=== PATIENT | male | born 1940 | race Caucasian/White ===

== ENCOUNTER → 2017-01-24 | Outpatient (CLI) | payer OTHER ==
[2016-01-20 12:59] VITALS: BP 146/83; PULSE 60
[~2017-01-24] MED LIST: ACET1TAB84 PO; APR25 PO; APR50 PO; ASPEC81 PO; ASPI81TA28 PO; BISA1TAB15 PO; CARV12.52 PO; CARV25TA PO; CARV25TA2 PO; CLC100 PO; CLOP1TAB15 PO; COEN100C2 PO; CRG125 PO; DOCU-94 PO; DXY100 PO; FINA5TAB PO; FRS/40 PO; FURO-85 PO; FURO40TA3 PO; HYDR-4717 PO; HYDR-5688 PO; HYOS0.1256 SL; ISR10 PO; LEVE500T PO; LEVE500T13 PO; LEVO-366 PO; LOSA100T65 PO; LOSA1TAB38 PO; LPR25 PO; LSX20 PO; LSX40 PO; LVS125 PO; MAGN1CAP4 PO; MAGN1TAB19 PO; MRLP17X PO; MULT-1030 PO; NTRGSL/4 SL; NYSCR30 EXT; Nitroglycerin PR; OXYC1TAB3 PO; PLV75 PO; POTA10CA28 PO; POTA10TA PO; POTA10TA30 PO; PRED50TA PO; PRS5 PO; ROSU10TA24 PO; SERT25TA PO; SERT50TA PO; VANC5CAP PO; WARF2.5T8 PO; WARF5TAB7 PO; ZLF/50 PO
[2017-01-24 14:00] VITALS: BP 144/75; PULSE 64; TEMP 36.5; O2SAT 97
--- NOTE | 2017-01-24 16:58 | Radiation Oncology Follow-Up ---
Radiation Oncology Follow-Up Date of Visit Jan 24, 2017. Reason For Visit Annual follow-up Radiation Completion Date 06/24/15 Diagnosis (1) Malignant neoplasm of rectum Status: Resolved Onset Date: 04/02/2015 Histology Subtype: adenocarcinoma Stage: lll (B) Permanent Comment: Rectal bleeding Status post colonoscopy and biopsy 04/02/2015 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 Status post endoscopic ultrasound stage [id number] Neoadjuvant radiation and chemotherapy Chemotherapy comprised of Xeloda Status post completion of radiation therapy 06/24/2015 received 5460 cGy Status post rectosigmoid resection 08/27/2015 ypT2 ypN0 M0 Status post ileostomy closure 04/14/2016, gait by small bowel obstruction and then hemorrhage Status post CVA and then slow wound healing Last Edited By: Celeste Burrell on Jan 24, 2017 16:38 History of Present Illness 76-year-old gentleman is referred to our department for a course of preoperative neoadjuvant radiation. The patient is scheduled to be seen by medical oncology later in the week for possible chemoradiation preoperatively. The patient had a history of rectal bleeding going off and on from the winter. He attributed this to hemorrhoids but finally after development of pain with his bleeding sought appropriate medical attention. He was found on digital examination to have a irregular cobblestone mass about 2-3 cm (1") from the anal verge. The patient was referred to Dr. Chuck Calderon [facility] who performed colonoscopy on the patient with biopsy and endorectal ultrasound. The patient underwent his biopsy on 04/02/2015. The pathology from that reported a rectal mass with moderately differentiated adenocarcinoma. His ultrasound was shown to demonstrate tumor that invaded into the muscularis certainly there was also a suspicious node seen on ultrasound making him T3N1. The patient underwent a CT of his chest, abdomen and pelvis as part of his staging workup and it was negative for metastatic disease. He has been referred to colorectal surgery at [facility]. The patient would prefer his surgery be at [facility] if possible. This will be worked out. The patient understands his disease and is agreeable for treatment here preoperatively. He was seen by Dr. Davis. And he will follow with him following the neoadjuvant treatment. He completed his neoadjuvant radiation and chemotherapy on 06/24/2015. He received 5460 cGy. He did undergo the low anterior resection with end-to-end anastomosis and temporary colostomy 08/27/2015. Pathology was reviewed and this shows foci of residual invasive moderately differentiated adenocarcinoma. The tumor invades to the depth of 0.4 cm and invades into, but not through, the muscularis propria. This is equivalent to stage T2. There were 22 lymph nodes evaluated and all were negative for metastatic disease. There was no macroscopic tumor perforation present. No perineural or lymphovascular space invasion identified. Changes consistent with radiation therapy. Examined margins free of neoplasm. Specimen [id number]. Interim History He was admitted and underwent closure of ileostomy by Dr. Davis on 2015. Unfortunately this was complicated by small bowel obstruction and then hemorrhage. Due to the hemorrhage he had to be off of anticoagulation. He then suffered a stroke. He now has right sided weakness. He has been slowly recuperating. He has difficulty with ambulation as well as speech. There is irregularity of bowel movements. For the most part he has constipation. He has been using gummy fiber to twice a day to help regulate his bowels. He also uses Dulcolax every 2 days. They also uses Mirilax. He does eat a regular diet. He unfortunately continues to have a weight loss. He has been scheduled for a recheck colonoscopy by Dr. Calderon on 02/14/2017. Allergies Coded Allergies: Iodine (Verified Allergy, Severe, airway edema, 11/18/16) Tramadol (Verified Allergy, Severe, seizures, 11/18/16) Oxycodone (Verified Allergy, Unknown, "itchiness all over", 11/18/16) Felodipine (Verified Adverse Reaction, Mild, cough, 11/18/16) ANCELMO Inhibitors (Verified Adverse Reaction, Unknown, COUGHING, 11/18/16) Codeine (Verified Adverse Reaction, Unknown, hallucinations, depression, ) Home Medications Scheduled Aspirin Enteric Coated (Ecotrin Or Generic *), 81 MG PO DAILY Carvedilol (Coreg), 25 MG PO BID Clopidogrel (Plavix), 75 MG PO DAILY Docusate Sodium (Colace), 2 CAP PO BID Finasteride (Proscar), 5 MG PO DAILY Hydralazine Hcl (Apresoline), 12.5 TAB PO QID Levetiractam (Levetiracetam), 500 MG PO BID Losartan Potassium (Cozaar), 100 MG PO QAM Magnesium Oxide (Magnesium), 200 MG PO DAILY Potassium Chloride (Micro-K Ext Rel), 10 MEQ PO Q2D(EVEN) Sertraline (Zoloft), 1 TAB PO DAILY Scheduled PRN Furosemide (Lasix), 20 MG PO DAILY PRN for edema Hydrocodone/Acetaminophen 5MG/325MG ([place] 5MG/325MG), 1-2 TAB PO Q4 PRN for mild to moderate pain Hyoscyamine Sulfate (Levsin/Sl), 1-2 TAB SL Q4H PRN for SPASM Nitroglycerin (Nitrostat), 1 TABLET SL [id number] PRN for Chest Pain Polyethylene (Miralax), 17 GM PO DAILY PRN for Constipation Review of Systems Gastrointestinal: Symptoms: Constipation GI Comments: Reports issues w/constipation and rectal pressure creating urge ; Oral: Symptoms: No Problems Other Oral Symptoms: Trouble swallowing since having stroke;Eating regular foods, sm. bites; Respiratory: Symptoms: Dry Cough Other Respiratory: Weak hoarse voice;SOB due to decreased strength Urinary: Symptoms: WNL Comments: nocturia times 2 Skin: Other Skin Symptoms: Pt has "couple small lumps" on buttocks he's like MD to look at. Physical Exam Vital Signs Date Time Temp Pulse Resp B/P Pulse Ox O2 Delivery O2 Flow Rate FiO2 01/24/17 14:00 36.5 64 32 144/75 97 Pain: Pain Onset: since surgery Pain Duration: comes and goes Side: Right Patient Pain Scale: 0 - 10 Initial Pain Intensity: 1.0 Additional Comments: gets worse when the ostomy bag is applied Fatigue: Moderate General Appearance: + thin Eyes: normal inspection, EOMI ENT: normal ENT inspection, hearing grossly normal Respiratory/Chest: lungs clear, no respiratory distress, no accessory muscle use Cardiovascular: regular rate, rhythm, no gallop, no murmur Abdomen: non tender, soft Anal / Rectum: Normal sphincter tone. Anastomotic line is noted with raised area on the anterior service. There is no rectal bleeding. Extremities: normal inspection Neurologic/Psychiatric: no motor/sensory deficits, alert, normal mood/affect Skin: warm/dry Laboratory Studies Test 11/18/16 17:19 11/18/16 17:35 11/18/16 18:05 White Blood Count 6.15 K/uL (4.8-10.8) Red Blood Count 4.33 M/uL (4.7-6.1) Hemoglobin 13.4 g/dL (14.0-18.0) Hematocrit 39.8 % (42-52) Mean Corpuscular Volume 91.9 fL (80-100) Mean Corpuscular Hemoglobin 30.9 pg (25-34) Mean Corpuscular Hemoglobin Concent 33.7 g/dl (32-36) Platelet Count 162 K/uL (130-400) Mean Platelet Volume 10.0 fL (7.4-10.4) Neutrophils (%) (Auto) 62.3 % Lymphocytes (%) (Auto) 28.0 % Monocytes (%) (Auto) 7.2 % Eosinophils (%) (Auto) 1.5 % Basophils (%) (Auto) 0.2 % Neutrophils # (Auto) 3.84 K/uL (1.4-6.5) Lymphocytes # (Auto) 1.72 K/uL (1.2-3.4) Monocytes # (Auto) 0.44 K/uL (0.11-0.59) Eosinophils # (Auto) 0.09 K/uL (0-0.5) Basophils # (Auto) 0.01 K/uL (0-0.2) RDW Standard Deviation 48.2 fL (36.4-46.3) RDW Coefficient of Variation 14.4 % (11.5-14.5) Immature Granulocyte % (Auto) 0.8 % Immature Granulocyte # (Auto) 0.05 K/uL (0.00-0.02) Prothrombin Time 31.7 SECONDS (9.0-12.0) Prothrombin Time INR 2.8 (0.9-1.1) PTT 33.8 SECONDS (21.0-31.0) Partial Thromboplastin Ratio 1.3 Sodium Level 144 mmol/L (136-145) Potassium Level 4.0 mmol/L (3.5-5.1) Chloride Level 110 mmol/L (98-107) Carbon Dioxide Level 25 mmol/L (21-32) Anion Gap 9.0 mmol/L (3-11) Blood Urea Nitrogen 18 mg/dl (7-18) Creatinine 1.10 mg/dl (0.60-1.40) Est Creatinine Clear Calc Drug Dose 50.7 ml/min Estimated GFR () 74.7 Estimated GFR (Non- 64.4 BUN/Creatinine Ratio 16.6 (10-20) Random Glucose 109 mg/dl (70-99) Calcium Level 8.8 mg/dl (8.5-10.1) Magnesium Level 2.1 mg/dl (1.8-2.4) Total Bilirubin 0.5 mg/dl (0.2-1) Direct Bilirubin < 0.1 mg/dl (0-0.2) Aspartate Amino Transferase (AST) 22 U/L (15-37) Alanine Aminotransferase (ALT) 24 U/L (12-78) Alkaline Phosphatase 124 U/L (45-117) Total Creatine Kinase 36 U/L (39-308) Creatine Kinase MB 0.8 ng/ml (0.5-3.6) Creatine Kinase MB Ratio 2.2 (0-3.0) Total Protein 7.0 gm/dl (6.4-8.2) Albumin 3.4 gm/dl (3.4-5.0) POC Troponin I 0.020 ng/ml (0-0.045) Urine Color YELLOW Urine Appearance CLEAR (CLEAR) Urine pH 5.0 (4.5-7.5) Urine Specific [place] 1.014 (1.000-1.030) Urine Protein 1+ (NEG) Urine Glucose (UA) NEG (NEG) Urine Ketones NEG (NEG) Urine Occult Blood TRACE (NEG) Urine Nitrite NEG (NEG) Urine Bilirubin NEG (NEG) Urine Urobilinogen NEG (NEG) Urine Leukocyte Esterase NEG (NEG) Urine WBC (Auto) 1-5 /hpf (0-5) Urine RBC (Auto) 5-10 /hpf (0-4) Urine Hyaline Casts (Auto) 1-5 /lpf (0-5) Urine Epithelial Cells (Auto) 10-20 /lpf (0-5) Urine Bacteria (Auto) NEG (NEG) Additional Studies Laboratory studies were reviewed and he had a CEA titer that was normal on 10/13. Assessment & Plan Plan: Continue follow-up with Dr. Young, his primary care physician, and Dr. Calderon. He is scheduled for a colonoscopy on 02/14/2017. He is a recheck appointment with Dr. Young on 03/03/2017. Recheck laboratory studies in scanning per Dr. Young. We asked her to return to our office in 6 months. Total Time In Follow-Up I spent 20 minutes the need to the patient performing examination. I spent 20 minutes reviewing information in completing this note. Copy To Chuck Calderon MD; Xavi Moreno M.D.(CARLOS); Mark Young M.D.
== END | disposition home or self-care (01) ==
LOC: C.ONC 13:34
PROVIDERS: ATTEND Physician Assistant Medical
DX: Z08 Encounter for follow-up examination after completed treatment for malignant neoplasm (principal); Z92.3 Personal history of irradiation; Z85.048 Personal history of other malignant neoplasm of rectum, rectosigmoid junction, and anus

== ENCOUNTER → 2017-04-27 | Outpatient (CLI) | payer OTHER ==
[~2017-04-27] MED LIST changes: +MethylPREDNISolone HOME PACK 16 MG TAB PO SCH; -SERT25TA PO; -WARF2.5T8 PO; -WARF5TAB7 PO
--- NOTE | 2017-04-27 13:40 | DIAGNOSTIC IMAGING REPORT ---
NECK CTA HISTORY: Confusion. TECHNIQUE: Multiaxial CT images of the neck were performed following the intravenous administration of contrast to evaluate the major cervical vessels. Maximum intensity projection images were also obtained. All measurements were calculated based on NASCET criteria. COMPARISON STUDY: Neck CTA 05/08/2016. FINDINGS: The aortic arch and proximal great vessels are widely patent. The bilateral common carotid arteries are widely patent. Severe calcified plaque within the right carotid bulb, unchanged. Moderate calcified and noncalcified plaque within the left carotid bulb, unchanged. There is approximate 70% stenosis at the proximal 1.5 cm of the right internal carotid artery. This is not significantly changed. No significant stenosis within the left internal carotid artery. Bilateral vertebral arteries are widely patent. Small right and moderate left pleural effusion. Stable prominent paratracheal lymph nodes. Left-sided pacemaker. IMPRESSION: 1. 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 This is not significantly changed. 2. No significant stenosis within the bilateral common carotid, left internal carotid, or vertebral arteries. 3. Small right and moderate left pleural effusions. Electronically signed by: Javon Suarez M.D. 04/27/2017 1:38 PM Dictated Date/Time: 04/27/2017 1:31 PM
--- NOTE | 2017-04-27 13:41 | DIAGNOSTIC IMAGING REPORT ---
CT ANGIOGRAPHY HEAD COMBO CT DOSE: CLINICAL HISTORY: Stroke. Confusion. Possible aneurysm. TECHNIQUE: Unenhanced images were obtained through the brain. The patient was then scanned in a dynamic helical fashion during intravenous administration of 94 cc of Optiray 320. MIP imaging was performed. COMPARISON STUDY: 05/08/2016 FINDINGS: The noncontrast study, no intra or extra-axial mass lesions are visualized. There is no CT evidence of acute cortical infarction. There is no evidence of midline shift. There is no evidence of acute hemorrhage. There are old left basal ganglia infarcts. There is suspected well-aerated degeneration within the joel. There is compensatory dilatation of the left lateral ventricle. Postcontrast images reveal no pathologically enhancing masses. There are no major intracranial branch occlusions. There are dural venous sinuses appear patent. There is a 7 mm aneurysm at the level of the right MCA trifurcation. This remains unchanged. 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 IMPRESSION: 1. 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 Old left basal ganglia infarcts Electronically signed by: Jacky Bower M.D. 04/27/2017 1:40 PM Dictated Date/Time: 04/27/2017 1:32 PM
== END | disposition home or self-care (01) ==
LOC: C.CTS 12:40
PROVIDERS: ATTEND Psychiatry & Neurology Neurology
DX: I69.359 Hemiplegia and hemiparesis following cerebral infarction affecting unspecified side (principal); I67.1 Cerebral aneurysm, nonruptured; I65.21 Occlusion and stenosis of right carotid artery; J90 Pleural effusion, not elsewhere classified

== ENCOUNTER 2017-05-02 20:58 | Inpatient (IN) | payer OTHER ==
[~2017-05-02] VITALS: Ht 167.6 cm; Wt 73.2 kg
[~2017-05-02 20:58] MED LIST changes: -ACET1TAB84 PO; -APR25 PO; -APR50 PO; -ASPI81TA28 PO; -BISA1TAB15 PO; -CARV25TA PO; -CARV25TA2 PO; -CLC100 PO; -COEN100C2 PO; -CRG125 PO; -DXY100 PO; -FRS/40 PO; -FURO40TA3 PO; -ISR10 PO; -LEVE500T13 PO; -LEVO-366 PO; -LOSA100T65 PO; -LPR25 PO; -LSX20 PO; -LSX40 PO; -LVS125 PO; -MAGN1TAB19 PO; -MULT-1030 PO; -MethylPREDNISolone HOME PACK 16 MG TAB PO SCH; -NYSCR30 EXT; -Nitroglycerin PR; -OXYC1TAB3 PO; -PLV75 PO; -POTA10TA PO; -POTA10TA30 PO; -PRED50TA PO; -PRS5 PO; -ROSU10TA24 PO; -VANC5CAP PO; -ZLF/50 PO
[2017-05-02] MEDS ORDERED: APR25 PO (21:41)
[2017-05-02] MEDS ORDERED: LSX20 PO (21:54)
[2017-05-02] MEDS ORDERED: LOSA100T65 PO (21:54)
[2017-05-02] MEDS ORDERED: VANC5CAP PO (21:54)
[2017-05-02] MEDS ORDERED: LVS125 PO (21:54)
[2017-05-02] MEDS ORDERED: LEVE500T13 PO (21:54)
[2017-05-02] MEDS ORDERED: CRG125 PO (21:54)
[2017-05-02] MEDS ORDERED: ZLF/50 PO (21:54)
[2017-05-02] MEDS ORDERED: POTA10TA30 PO (21:54)
[2017-05-02] MEDS ORDERED: PRS5 PO (21:54)
[2017-05-02] MEDS ORDERED: PLV75 PO (21:54)
[2017-05-02] MEDS ORDERED: MAGN1TAB19 PO (21:57)
[2017-05-02] MEDS ORDERED: ASPI81TA28 PO (21:57)
[2017-05-02 21:58] LABS: BASO % 0.1 %; BASO ABS # 0.01 K/uL (0-0.2); COMPLETE YES; EOS % 2.1 %; HEMATOCRIT 41.3 % (42-52); IG% 1.1 %; LYMPH % 11.5 %; LYMPH ABS # 0.87 K/uL (1.2-3.4); MEAN CELL VOLUME 95.2 fL (80-100); MEAN CORPUSCULAR HEMOGLOBIN 30.6 pg (25-34); MEAN CORPUSCULAR HGB CONC 32.2 g/dl (32-36); MEAN PLATELET VOLUME 10.3 fL (7.4-10.4); MONO % 6.1 %; NEUT % 79.1 %; PLATELET COUNT 143 K/uL (130-400); RED BLOOD COUNT 4.34 M/uL (4.7-6.1); WHITE BLOOD COUNT 7.59 K/uL (4.8-10.8)
[2017-05-02] MEDS ORDERED: Nitroglycerin PR (22:05)
[2017-05-02] MEDS ORDERED: BISA1TAB15 PO (22:05)
[2017-05-02] MEDS ORDERED: MULT-1030 PO (22:05)
[2017-05-02] MEDS ORDERED: COEN100C2 PO (22:05)
[2017-05-02 22:06] LABS: INR 1.1 (0.9-1.1); PROTHROMBIN TIME (PATIENT) 12.2 SECONDS (9.0-12.0)
[2017-05-02 22:13] LABS: BUN/CREATININE RATIO 21.2 (10-20); CALCIUM 8.6 mg/dl (8.5-10.1); CREATININE 1.3 mg/dl (0.60-1.40); MAGNESIUM 2.3 mg/dl (1.8-2.4); POTASSIUM 4.1 mmol/L (3.5-5.1)
[2017-05-02 22:24] LABS: ALB/GLOB RATIO 1.1 (0.9-2); THYROID STIMULATING HORMONE 2.14 uIu/ml (0.300-4.500)
--- NOTE | 2017-05-02 22:24 | DIAGNOSTIC IMAGING REPORT ---
CHEST ONE VIEW PORTABLE CLINICAL HISTORY: chest discomfort chest pain COMPARISON STUDY: 11/18/2016 FINDINGS: . Bipolar cardiac pacer in good position. Infiltrate left base. Superimposed mild congestive failure. IMPRESSION: Infiltrate left base. Superimposed mild congestive failure Electronically signed by: Dirk Castellanos M.D. 05/02/2017 10:23 PM Dictated Date/Time: 05/02/2017 10:22 PM
[2017-05-02] MEDS ORDERED: LEVAQUIN 750MG / 150ML D5W IV STA (23:13)
--- NOTE | 2017-05-02 23:31 | EMERGENCY ROOM VISIT NOTE ---
History Report prepared by Michelle: Yaquelin Burris Under the Supervision of: Dr. Zunilda Shepherd D.O. First contact with patient: 21:19 Chief Complaint: HYPERTENSION Stated Complaint: ELEVATED BP History of Present Illness The patient is a 76 year old male who presents to the Emergency Room with complaints of worsening heart palpitations starting several days ago. He has episodes where his heart feels like it is alternating between beating fast and slow. He has had this since his stroke 1 year ago. These episodes have been becoming longer and more frequent which is concerning him. He checked his blood pressure today and found that it was 160/100. His blood pressure is usually well controlled. He is also feeling SOB which worsens with exertion. He reports some left arm and elbow pain which he has never had before. The arm pain worsens with exertion. He has some swelling in his legs. He has been complaining of feeling hot according to his . He denies any dizziness, lightheadedness, chest pain, LOC, abdominal pain, nausea, vomiting, urinary symptoms, diarrhea, or diaphoresis. He has a history of stroke and multiple SD. He has a pacemaker and a stent in place. He is on hydralazine. He takes a fluid pill occasionally when his legs swell. Recently he had C diff and was on vancomycin. He does not have diarrhea anymore. Source of History: patient, spouse/significant other Onset: several days ago Position: other (cardiac) Quality: other (palpitations) Timing: worsening Modifying Factors (Worsening): exertion Associated Symptoms: + SOB, No LOC, No diaphoresis, No chest pain, No nausea , No vomiting, No abdominal pain, No diarrhea, No urinary symptoms Note: Pt reports high blood pressure, left arm pain, leg swelling, feeling hot. Pt denies dizziness, lightheadedness. Review of Systems See HPI for pertinent positives & negatives. A total of 10 systems reviewed and were otherwise negative. Past Medical & Surgical Medical Problems: (1) AV block (2) Benign prostatic hyperplasia (3) Carotid disease, bilateral (4) Chest pain (5) CHF exacerbation (6) Clostridium difficile infection (7) Coronary artery disease (8) Diabetes mellitus, type II (9) DVT (deep venous thrombosis) (10) Dyslipidemia (11) Elevated blood pressure reading (12) GERD (gastroesophageal reflux disease) (13) History of colorectal cancer (14) History of CVA (cerebrovascular accident) (15) History of skin cancer (16) Hypertension (17) Left bundle branch block (18) Malignant neoplasm of rectum (19) Peripheral vascular disease (20) Right humeral fracture (21) Seizure (22) Seizure disorder (23) Sick sinus syndrome Surgical Problems: (1) H/O ileostomy (2) History of resection of rectum (3) S/P colon resection (4) Status post cardiac pacemaker procedure (5) Status post cholecystectomy (6) Status post coronary artery bypass grafting (7) Status post shoulder surgery (8) Status post tonsillectomy Family History Cad, cabg BROTHER Cancer aunt,uncle Diabetes mellitus MOTHER Gallbladder disease Hypertension MOTHER BROTHER Kidney disease Multiple myeloma FATHER Social History Smoking Status: Never Smoker Alcohol Use: none Drug Use: none Marital Status: Housing Status: lives with family Occupation Status: retired Current/Historical Medications Scheduled Aspirin (Aspirin Ec), 81 MG PO QPM Carvedilol (Carvedilol), 25 MG PO BID Clopidogrel Bisulfate (Clopidogrel), 75 MG PO QPM Coenzyme Q10 (Ubidecarenone) (Coenzyme Q-10), 100 MG PO DAILY Doxycycline Hyclate (Doxycycline Hyclate), 100 MG PO BID Finasteride (Finasteride), 5 MG PO DAILY Furosemide (Lasix), 20 MG PO DAILY Hydralazine HCl (Hydralazine HCl), 50 MG PO TID Isosorbide Dinitrate (Isosorbide Dinitrate), 10 MG PO TID@0700,1200,1700 Levetiracetam (Keppra), 500 MG PO BID Losartan Potassium (Cozaar), 100 MG PO DAILY Magnesium Oxide (Mg Supplement (Magnesium Oxide), 400 MG PO DAILY Multiple Vitamins W/ Minerals (Centrum Men), 1 TAB PO DAILY Potassium Chloride (Micro-K Ext Rel), 10 MEQ PO DAILY Sertraline HCl (Sertraline HCl), 50 MG PO DAILY Scheduled PRN Bisacodyl (Bisacodyl), 5 MG PO UD PRN for Constipation Hyoscyamine Sulfate (Hyoscyamine Sulfate), 0.125 MG PO Q4H PRN for Cramping Nitroglycerin (Nitrostat), 0.4 MG SL UD PRN for Chest Pain [Nitroglycerin], 1 APPLN [place] Q12 PRN for Rectal Spasm Allergies Coded Allergies: Iodine (Verified Allergy, Severe, airway edema, 11/18/16) Tramadol (Verified Allergy, Severe, seizures, 11/18/16) Oxycodone (Verified Allergy, Unknown, "itchiness all over", 11/18/16) Felodipine (Verified Adverse Reaction, Mild, cough, 11/18/16) ANCELMO Inhibitors (Verified Adverse Reaction, Unknown, COUGHING, 11/18/16) Codeine (Verified Adverse Reaction, Unknown, hallucinations, depression, ) Physical Exam Vital Signs Date Time Temp Pulse Resp B/P (MAP) Pulse Ox O2 Delivery O2 Flow Rate FiO2 05/02/17 23:18 86 18 173/127 93 Room Air 05/02/17 21:40 90 169/111 05/02/17 21:15 90 05/02/17 21:04 36.7 92 18 167/105 96 Room Air Physical Exam GENERAL: alert, tearful appearing, well nourished, no distress, non-toxic EYE EXAM: normal conjunctiva, PERRL and EOM's grossly intact OROPHARYNX: no exudate, no erythema, lips, buccal mucosa, and tongue normal and mucous membranes are moist NECK: supple, no nuchal rigidity, no adenopathy, non-tender CHEST: pacer located on left anterior chest wall LUNGS: Breath sounds equal bilaterally. No wheezes rhonchi rales. Normal chest wall mechanics HEART: regular paced rhythm, no murmurs, S1 normal and S2 normal ABDOMEN: abdomen soft, non-tender, normo-active bowel sounds, no masses, no rebound or guarding. BACK: Back is symmetrical on inspection and there is no deformity, no midline tenderness, no CVA tenderness. SKIN: no rashes and no bruising UPPER EXTREMITIES: upper extremities are grossly normal. LOWER EXTREMITIES: trace to 1+ pitting edema bilaterally. NEURO EXAM: Oriented, alert, follows commands. Normal sensorium, cranial nerves II-XII grossly intact, normal speech, increased weakness and decreased ROM in right lower extremity and right upper extremity secondary to stroke. Medical Decision & Procedures ER Provider Diagnostic Interpretation: Xray results have been interpreted by the radiologist and me. CHEST ONE VIEW PORTABLE CLINICAL HISTORY: chest discomfort chest pain COMPARISON STUDY: 11/18/2016 FINDINGS: . Bipolar cardiac pacer in good position. Infiltrate left base. Superimposed mild congestive failure. IMPRESSION: Infiltrate left base. Superimposed mild congestive failure Electronically signed by: Dirk Castellanos M.D. 05/02/2017 10:23 PM Dictated Date/Time: 05/02/2017 10:22 PM Laboratory Results Test 05/02/17 21:30 05/02/17 22:55 Prothrombin Time 12.2 SECONDS (9.0-12.0) Prothromb Time International Ratio 1.1 (0.9-1.1) Total Bilirubin 0.6 mg/dl (0.2-1) Aspartate Amino Transf (AST/SGOT) 53 U/L (15-37) Alanine Aminotransferase (ALT/SGPT) 97 U/L (12-78) Alkaline Phosphatase 160 U/L (45-117) Pro-B-Type Natriuretic Peptide 61947 pg/ml (0-1800) Total Protein 7.1 gm/dl (6.4-8.2) Albumin 3.7 gm/dl (3.4-5.0) Globulin 3.4 gm/dl (2.5-4.0) Albumin/Globulin Ratio 1.1 (0.9-2) Lipase 115 U/L (73-393) Thyroid Stimulating Hormone (TSH) 2.140 uIu/ml (0.300-4.500) Urine Color YELLOW Urine Appearance CLEAR (CLEAR) Urine pH 5.5 (4.5-7.5) Urine Specific [place] 1.026 (1.000-1.030) Urine Protein 2+ (NEG) Urine Glucose (UA) NEG (NEG) Urine Ketones NEG (NEG) Urine Occult Blood NEG (NEG) Urine Nitrite NEG (NEG) Urine Bilirubin NEG (NEG) Urine Urobilinogen NEG (NEG) Urine Leukocyte Esterase NEG (NEG) Urine WBC (Auto) 1-5 /hpf (0-5) Urine RBC (Auto) 5-10 /hpf (0-4) Urine Hyaline Casts (Auto) 1-5 /lpf (0-5) Urine Epithelial Cells (Auto) 10-20 /lpf (0-5) Urine Bacteria (Auto) NEG (NEG) Laboratory results per my review. Medications Administered Medications (Trade) Dose Ordered Sig/Nati Route Start Time Stop Time Status Last Admin Dose Admin Levofloxacin (Levaquin / D5W) 750 mg NOW STAT IV 05/02/17 23:13 05/02/17 23:14 DC 05/02/17 23:24 750 MG ECG Indication: palpitations Rate (beats per minute): 91 Rhythm: other (paced) Findings: no acute ischemic change, left axis deviation, other (prolonged QRS and QTC consistent with pacing) ED Course 2132: The patient was evaluated by the student at this time. We discussed his findings, differentials, and treatment plan. 2155: The patient was evaluated in room A3. A complete history and physical exam was performed. 2256: Upon reevaluation, the patient is resting comfortably. I discussed the findings and the treatment plan with the patient. He expresses agreement and understanding. He will be evaluated for further management. 2313: Levofloxacin 750 mg IV. 2328: Pt seen in the ER by Stoney S[place]a [place] hospitalist. He will evaluate the patient for further management. Medical Decision Differential diagnosis: Etiologies such as premature contractions, electrolyte abnormality, cardiac dysrhythmia, thyroid dysfunction, pulmonary embolism, infection, gastrointestinal, as well as others were entertained. Medication Reconciliation: I attest that I have personally reviewed the patient' s current medication list. Blood pressure screening: Patient was found to have an elevated blood pressure and was referred to their primary doctor for recheck and further treatment. Initial concern for need for admission for ACS r/o given hx and exertional symptoms. After cxr, pt covered with antibiotics for possible infiltrate as read by radiology and BNP added given appearance. BNP returned markedly elevated by the time of hospitalist evaluation. Lasix ordered in the ER. Pt with no symptoms in the ER, VS stable. Doubt bacteremia/sepsis, doubt vascular etiology. Pt aware of all results and agreeable with plan for admission. Consults Time Called: 2255 Consulting Physician: Stoney Haider hospitalist Impression Primary Impression: Dyspnea on exertion Additional Impressions: Left shoulder pain Pneumonia Anxiety CHF exacerbation Scribe Attestation The scribe's documentation has been prepared under my direction and personally reviewed by me in its entirety. I confirm that the note above accurately reflects all work, treatment, procedures, and medical decision making performed by me. Departure Information Dispostion Being Evaluated By Hospitalist Prescriptions Isosorbide Dinitrate (Isosorbide Dinitrate) 10 Mg Tab 10 MG PO TID@0700,1200,1700 for 30 Days, #90 TAB Prov: Allie Hanson M.D. 05/05/17 Hydralazine HCl (Hydralazine HCl) 50 Mg Tab 50 MG PO TID for 30 Days, #90 TAB Prov: Allie Hasnon M.D. 05/05/17 Doxycycline Hyclate (Doxycycline Hyclate) 100 Mg Cap 100 MG PO BID for 3 Days, #6 CAP Prov: Allie Hanson M.D. 05/05/17 Furosemide (LASIX) 40 Mg Tab 20 MG PO DAILY for 30 Days, #15 TAB Prov: Allie Hanson M.D. 05/05/17 Potassium Chloride (Micro-K Ext Rel) 10 Meq Capcr 10 MEQ PO DAILY for 30 Days, #30 CAP Prov: Allie Hanson M.D. 05/05/17 Carvedilol (Carvedilol) 12.5 Mg Tab 25 MG PO BID for 30 Days, #120 TAB 2 Refills Prov: Allie Hanson M.D. 05/05/17 Referrals Xavi Moreno M.D. ([facility]) (PCP) Patient Instructions My [facility] Problem Qualifiers Additional Impressions: Left shoulder pain Chronicity: acute Qualified Codes: M25.512 - Pain in left shoulder Pneumonia Pneumonia type: due to unspecified organism Laterality: left Lung location : lower lobe of lung Qualified Codes: J18.1 - Lobar pneumonia, unspecified organism CHF exacerbation Congestive heart failure type: combined Qualified Codes: I50.43 - Acute on chronic combined systolic (congestive) and diastolic (congestive) heart failure
[2017-05-02] MEDS ORDERED: FUROSEMIDE INJ 40 MG in SYRINGE 0 ML IV STA (23:44)
[2017-05-02] MEDS ORDERED: ALBUT/IPRATROP 3MG/0.5MG NEB 3 ML VIAL INH PRN (23:45)
[2017-05-02] MEDS ORDERED: IV FLUIDS COMPLETED PRN (23:45)
[2017-05-02] MEDS ORDERED: ALBUT/IPRATROP 3MG/0.5MG NEB 3 ML VIAL INH STA (23:45)
[2017-05-02] MEDS ORDERED: FUROSEMIDE 40 MG/4 ML VIAL ONE (23:49)
[2017-05-02] MEDS ORDERED: ALBUT/IPRATROP 3MG/0.5MG NEB 3 ML VIAL ONE (23:49)
[2017-05-02 23:50] LABS: URINE APPEARANCE CLEAR (CLEAR); URINE BILIRUBIN NEG (NEG); URINE COLOR YELLOW; URINE NITRITE NEG (NEG); URINE PH 5.5 (4.5-7.5); URINE SPECIFIC GRAVITY 1.026 (1.000-1.030); UROBILINOGEN NEG (NEG); ZZUR CULT IF INDIC CLEAN CATCH NO
[2017-05-02 23:52] LABS: MANUAL MICROSCOPIC REQUIRED? NO; REVIEW REQ? NO
[2017-05-03] VITALS (10 sets, daily range): BP systolic 151–167; BP diastolic 85–106; PULSE 60–102; TEMP 36.5–37.1; O2SAT 93–96; Ht 167.6 cm; Wt 73.2 kg
[2017-05-03] MEDS ORDERED: HYDROCODONE/ACETAMOPHEN 5/325MG TAB PO PRN
[2017-05-03] MEDS ORDERED: MoRPHine SULFATE 4 MG/ML 1 ML CARP\\VIAL IV PRN
[2017-05-03] MEDS ORDERED: ACETAMINOPHEN 325 MG TAB PO PRN
[2017-05-03] MEDS ORDERED: ONDANSETRON INJ 2 MG/ML 2 ML VIAL IV PRN
[2017-05-03] MEDS ORDERED: NITROGLYCERIN 0.4 MG SL PER TAB CHARGE SL PRN ×2
[2017-05-03] MEDS: RASPBERRY SYRUP 5 ML UDP PO SCH ×5 (01:12→23:16)
[2017-05-03] MEDS: VANCOMYCIN HCL 125 MG/2.5ML SOLN PO SCH ×5 (01:14→23:15)
--- NOTE | 2017-05-03 01:48 | History and Physical ---
History & Physical Date & Time of Service: May 03, 2017 at 01:44 Chief Complaint: Chf Exacerbation Primary Care Physician: Xavi Moreno M.D.([facility]) History of Present Illness Source: patient, partner, clinic records, hospital records 1 day history of shortness of breath especially on exertion. Yesterday patient noted some leg swelling. Patient given extra Lasix. Dry cough symptoms. No fever no chills. Patient also noted left upper extremity discomfort. No actual chest pain. Blood pressure a little higher than usual, some weight gain as per . At the ER, patient given Levaquin for possible pneumonia. Past Medical/Surgical History Medical Problems: (1) AV block Permanent Comment: s/p pacemaker Status: Chronic (2) Benign prostatic hyperplasia Status: Chronic (3) Carotid disease, bilateral Permanent Comment: asymptomatic Status: Chronic (4) Coronary artery disease Permanent Comment: s/p [place] Status: Chronic (5) Diabetes mellitus, type II Status: Chronic (6) Dyslipidemia Status: Chronic (7) GERD (gastroesophageal reflux disease) Status: Chronic (8) History of skin cancer Status: Chronic (9) Hypertension Status: Chronic (10) Left bundle branch block Status: Chronic (11) Malignant neoplasm of rectum Permanent Comment: Rectal bleeding Status post colonoscopy and biopsy 04/02/2015 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 Status post endoscopic ultrasound stage [id number] Neoadjuvant radiation and chemotherapy Chemotherapy comprised of Xeloda Status post completion of radiation therapy 06/24/2015 received 5460 cGy Status post rectosigmoid resection 08/27/2015 ypT2 ypN0 M0 Status post ileostomy closure 04/14/2016, gait by small bowel obstruction and then hemorrhage Status post CVA and then slow wound healing Status: Resolved (12) Seizure Status: Chronic Surgical Problems: (1) H/O ileostomy Status: Chronic (2) History of resection of rectum Status: Resolved (3) S/P colon resection Status: Chronic (4) Status post cardiac pacemaker procedure Permanent Comment: initial 2005, generator change 2011 Status: Chronic (5) Status post cholecystectomy Status: Chronic (6) Status post coronary artery bypass grafting Permanent Comment: Dr. Stephens [facility] [place] DIAZ-LAD, SVG left circumflex Status: Chronic (7) Status post shoulder surgery Status: Chronic (8) Status post tonsillectomy Status: Chronic Family History Cad, cabg BROTHER Cancer aunt,uncle Diabetes mellitus MOTHER Gallbladder disease Hypertension MOTHER BROTHER Kidney disease Multiple myeloma FATHER Social History Smoking Status: Never Smoker Drug Use: none Marital Status: Housing status: lives with family Occupational Status: retired, other (as per HPI, all other ROS negative) Immunizations History of Influenza Vaccine: Yes Influenza Vaccine Date: Aug 15, 2014 History of Tetanus Vaccine?: Unknown History of Pneumococcal: Yes Pneumococcal Date: May 31, 2005 History of Hepatitis B Vaccine: No Multi-Drug Resistant Organisms History of MDRO: No Allergies Coded Allergies: Iodine (Verified Allergy, Severe, airway edema, 11/18/16) Tramadol (Verified Allergy, Severe, seizures, 11/18/16) Oxycodone (Verified Allergy, Unknown, "itchiness all over", 11/18/16) Felodipine (Verified Adverse Reaction, Mild, cough, 11/18/16) ANCELMO Inhibitors (Verified Adverse Reaction, Unknown, COUGHING, 11/18/16) Codeine (Verified Adverse Reaction, Unknown, hallucinations, depression, ) Home Medications Scheduled Aspirin (Aspirin Ec), 81 MG PO QPM Carvedilol (Carvedilol), 12.5 MG PO BID Clopidogrel Bisulfate (Clopidogrel), 75 MG PO QPM Coenzyme Q10 (Ubidecarenone) (Coenzyme Q-10), 100 MG PO DAILY Finasteride (Finasteride), 5 MG PO DAILY Furosemide (Furosemide), 20 MG PO Q2D Hydralazine Hcl (Apresoline), 12.5 MG PO QID Levetiracetam (Keppra), 500 MG PO BID Losartan Potassium (Cozaar), 100 MG PO DAILY Magnesium Oxide (Mg Supplement (Magnesium Oxide), 400 MG PO DAILY Multiple Vitamins W/ Minerals (Centrum Men), 1 TAB PO DAILY Potassium Chloride (Potassium Chloride Cr), 10 MEQ PO Q2D Sertraline HCl (Sertraline HCl), 50 MG PO DAILY Vancomycin Hcl (Vancomycin), 125 MG PO Q6H Scheduled PRN Bisacodyl (Bisacodyl), 5 MG PO UD PRN for Constipation Hyoscyamine Sulfate (Hyoscyamine Sulfate), 0.125 MG PO Q4H PRN for Cramping Nitroglycerin (Nitrostat), 0.4 MG SL UD PRN for Chest Pain [Nitroglycerin], 1 APPLN [place] Q12 PRN for Rectal Spasm Physical Exam Vital Signs Date Time Temp Pulse Resp B/P (MAP) Pulse Ox O2 Delivery O2 Flow Rate FiO2 05/03/17 00:41 36.5 102 18 164/106 93 Room Air 05/03/17 00:14 36.7 95 18 177/119 95 05/02/17 23:18 86 18 173/127 93 Room Air 05/02/17 21:40 90 169/111 05/02/17 21:15 90 05/02/17 21:04 36.7 92 18 167/105 96 Room Air General Appearance: + mild distress, + pertinent finding (anxious) Head: normocephalic Eyes: + pertinent finding (pale palpebral conjunctivae, old right facial droop) Neck: supple Respiratory/Chest: + decreased breath sounds Cardiovascular: + pertinent finding (diminished S1-S2) Abdomen/GI: soft Extremities/Musculoskelatal: no calf tenderness, + pedal edema Neurologic/Psych: + pertinent finding (old right facial asymmetry, decreased strength RUE/RLE chronic) Diagnostics Laboratory Results Results Past 24 Hours Test 05/02/17 21:30 05/02/17 22:55 Range/Units White Blood Count 7.59 4.8-10.8 K/uL Red Blood Count 4.34 4.7-6.1 M/uL Hemoglobin 13.3 14.0-18.0 g/dL Hematocrit 41.3 42-52 % Mean Corpuscular Volume 95.2 80-100 fL Mean Corpuscular Hemoglobin 30.6 25-34 pg Mean Corpuscular Hemoglobin Concent 32.2 32-36 g/dl Platelet Count 143 130-400 K/uL Mean Platelet Volume 10.3 7.4-10.4 fL Neutrophils (%) (Auto) 79.1 % Lymphocytes (%) (Auto) 11.5 % Monocytes (%) (Auto) 6.1 % Eosinophils (%) (Auto) 2.1 % Basophils (%) (Auto) 0.1 % Neutrophils # (Auto) 6.01 1.4-6.5 K/uL Lymphocytes # (Auto) 0.87 1.2-3.4 K/uL Monocytes # (Auto) 0.46 0.11-0.59 K/uL Eosinophils # (Auto) 0.16 0-0.5 K/uL Basophils # (Auto) 0.01 0-0.2 K/uL RDW Standard Deviation 50.7 36.4-46.3 fL RDW Coefficient of Variation 14.6 11.5-14.5 % Immature Granulocyte % (Auto) 1.1 % Immature Granulocyte # (Auto) 0.08 0.00-0.02 K/uL Prothrombin Time 12.2 9.0-12.0 SECONDS Prothromb Time International Ratio 1.1 0.9-1.1 Sodium Level 142 136-145 mmol/L Potassium Level 4.1 3.5-5.1 mmol/L Chloride Level 109 98-107 mmol/L Carbon Dioxide Level 27 21-32 mmol/L Anion Gap 6.0 3-11 mmol/L Blood Urea Nitrogen 28 7-18 mg/dl Creatinine 1.30 0.60-1.40 mg/dl Est Creatinine Clear Calc Drug Dose 42.9 ml/min Estimated GFR () 61.0 Estimated GFR (Non- 52.6 BUN/Creatinine Ratio 21.2 10-20 Random Glucose 158 70-99 mg/dl Calcium Level 8.6 8.5-10.1 mg/dl Magnesium Level 2.3 1.8-2.4 mg/dl Total Bilirubin 0.6 0.2-1 mg/dl Aspartate Amino Transf (AST/SGOT) 53 15-37 U/L Alanine Aminotransferase (ALT/SGPT) 97 12-78 U/L Alkaline Phosphatase 160 45-117 U/L Troponin I 0.025 0-0.045 ng/ml Pro-B-Type Natriuretic Peptide 76259 0-1800 pg/ml Total Protein 7.1 6.4-8.2 gm/dl Albumin 3.7 3.4-5.0 gm/dl Globulin 3.4 2.5-4.0 gm/dl Albumin/Globulin Ratio 1.1 0.9-2 Lipase 115 73-393 U/L Thyroid Stimulating Hormone (TSH) 2.140 0.300-4.500 uIu/ml Urine Color YELLOW Urine Appearance CLEAR CLEAR Urine pH 5.5 4.5-7.5 Urine Specific [place] 1.026 1.000-1.030 Urine Protein 2+ NEG Urine Glucose (UA) NEG NEG Urine Ketones NEG NEG Urine Occult Blood NEG NEG Urine Nitrite NEG NEG Urine Bilirubin NEG NEG Urine Urobilinogen NEG NEG Urine Leukocyte Esterase NEG NEG Urine WBC (Auto) 1-5 0-5 /hpf Urine RBC (Auto) 5-10 0-4 /hpf Urine Hyaline Casts (Auto) 1-5 0-5 /lpf Urine Epithelial Cells (Auto) 10-20 0-5 /lpf Urine Bacteria (Auto) NEG NEG Diagnostic Radiology Chest x-ray congestion, possible infiltrate left EKG EKG paced rhythm Impression Assessment and Plan (1) CHF exacerbation Assessment & Plan: hx ischemic cardiomyopathy ? precipitated by uncontrolled HTN IV lasix 1 dose now further mx as per Cardio strict IOs, daily weights, CHF education (2) Coronary artery disease Assessment & Plan: sp CABG, stenting (3) Hypertension Assessment & Plan: slightly elevated, anxiety contributory facilitate home BP meds may need titration (4) Diabetes mellitus, type II Assessment & Plan: diet controlled well controlled as of recent outpx HgA1c ISS BG goal 140-180 (5) Sick sinus syndrome Assessment & Plan: sp PPM (6) History of CVA (cerebrovascular accident) (7) Clostridium difficile infection Assessment & Plan: px improving on recent outpx PO Vanco course (8) Peripheral vascular disease (9) History of colorectal cancer Assessment & Plan: sp surgery/chemoradiation (10) DVT (deep venous thrombosis) Assessment & Plan: past hx coumadin (11) Seizure disorder Stable on Keppra Advanced Directives Existing Living Will: No Existing Power of Packing Machine Tender: No VTE Prophylaxis VTE Risk Assessment Done? Y/N: Yes Risk Level: High Given or contraindicated: Enoxaparin (Lovenox)SQ
[2017-05-03 06:14] LABS: BASO % 0.1 %; BASO ABS # 0.01 K/uL (0-0.2); COMPLETE YES; EOS % 2.3 %; HEMATOCRIT 36.9 % (42-52); IG% 1.3 %; LYMPH % 17.4 %; LYMPH ABS # 1.21 K/uL (1.2-3.4); MEAN CELL VOLUME 94.4 fL (80-100); MEAN CORPUSCULAR HEMOGLOBIN 31.2 pg (25-34); MEAN CORPUSCULAR HGB CONC 33.1 g/dl (32-36); MEAN PLATELET VOLUME 10.2 fL (7.4-10.4); MONO % 8.9 %; PLATELET COUNT 126 K/uL (130-400); RED BLOOD COUNT 3.91 M/uL (4.7-6.1); WHITE BLOOD COUNT 6.96 K/uL (4.8-10.8)
[2017-05-03 06:44] LABS: BUN/CREATININE RATIO 22.5 (10-20); CALCIUM 8.7 mg/dl (8.5-10.1); CREATININE 1.3 mg/dl (0.60-1.40); POTASSIUM 3.8 mmol/L (3.5-5.1)
[2017-05-03] MEDS: SERTRALINE HCL 50 MG TAB PO SCH (07:40)
[2017-05-03] MEDS: ENOXAPARIN 40 MG/0.4 ML SYR SC SCH (07:40)
[2017-05-03] MEDS: FINASTERIDE 5 MG TAB PO SCH (07:40)
[2017-05-03] MEDS: LEVETIRACETAM 500 MG TAB PO SCH ×2 (07:41→19:55)
[2017-05-03] MEDS: LOSARTAN POTASSIUM 50 MG TAB PO SCH (07:41)
[2017-05-03] MEDS: CEROVITE ADV FORMULA TAB PO SCH (07:41)
[2017-05-03] MEDS ORDERED: GLUCOSE 40% GEL 15 GM TUBE PO PRN (08:15)
[2017-05-03] MEDS ORDERED: GLUCOSE 10 TABS/TUBE PO PRN (08:15)
[2017-05-03] MEDS ORDERED: DEXTROSE 50% 50 ML SYR IV PRN (08:15)
[2017-05-03] MEDS ORDERED: GLUCAGON FOR INJ 1 MG VIAL SQ PRN (08:15)
[2017-05-03] MEDS ORDERED: CARVEDILOL 12.5 MG TAB PO SCH (09:00)
--- NOTE | 2017-05-03 10:30 | DIAGNOSTIC IMAGING REPORT ---
SINGLE VIEW CHEST CLINICAL HISTORY: CHF. FINDINGS: An AP, portable, upright chest radiograph is compared to study dated 05/02/2017. The examination is degraded by portable technique and patient rotation. A 2-lead cardiac pacemaker is unchanged in position. The patient is status post midline sternotomy. The heart is enlarged and there is atherosclerotic calcification of the thoracic aorta. There is mild central pulmonary vascular congestion. Chronic interstitial thickening with bibasilar scarring versus atelectasis is similar to previous. Small pleural effusions are identified. Consolidative change is noted at the left lung base. No pneumothorax is identified. The skeletal structures are osteopenic. Chronic posttraumatic change is noted in the right humerus. Cholecystectomy clips are seen in the right upper quadrant. IMPRESSION: 1. Cardiomegaly and cardiac pacemaker. There is mild central pulmonary vascular congestion. 2. Pleural effusions are noted and there is consolidative change at the left lung base. Cortical clinically for evidence of superimposed pneumonia. Electronically signed by: Fredy Gould M.D. 05/03/2017 10:28 AM Dictated Date/Time: 05/03/2017 10:25 AM
[2017-05-03] MEDS: INSULIN ASPART 100 UNITS/ML 3 ML PEN SC SCH ×3 (11:36→19:53)
--- NOTE | 2017-05-03 14:38 | Cardiology Consultation ---
Cardiology Consultation Date of Consultation: May 03, 2017 Requesting Physician: Christine Attending Mechanic Field Service: Hans (Dirk Orozco PA-C) History of Present Illness Patient is a markedly complex 76-year-old male who is being seen at the request of Dr. King. Reason for consultation is congestive heart failure. Patient describes experiencing increased shortness of breath, nonproductive cough and palpitations over the past week. He also notes left arm and left elbow discomfort. EKG on presentation demonstrated atrial sensed, ventricular paced rhythm. Chest x-ray was interpreted by the radiologist as demonstrating mild congestive heart failure with a left basilar infiltrate. He was admitted by the [facility] service and given 40 mg of IV Lasix with complete resolution of his presenting symptoms. He has diuresed 1.875 L. Blood pressures are noted be elevated on presentation throughout his hospitalization thus far. Repeat chest x-ray this morning demonstrates mild central pulmonary vascular congestion, pleural effusions, consolidative changes at the left base. No chest pain. No orthopnea or PND. No lightheadedness, dizziness, near syncope, or true syncope. He denies fevers, chills, or night sweats. No hemoptysis, epistaxis, melena, hematochezia, hematuria. (Dirk Orozco PA-C) History Past Medical and Surgical History: Atherosclerotic coronary disease, status post coronary bypass grafting March of 2002, receiving DIAZ graft to LAD, saphenous vein graft to left circumflex. Recurrent ischemia with drug-eluting stent placed in the distal right coronary artery May of 2014 with patent grafts. Carotid occlusive disease. Sick sinus syndrome status post dual-chamber pacemaker insertion. Hypertension. Hyperlipidemia. Colorectal carcinoma status post low anterior resection 08/25/2015 after chemo and radiation therapy. Hospitalization at [facility] on 11/29/2015 with new onset seizure. No overt cardiac decompensation. Reversal of ileostomy on 04/14/2016 complicated by bowel obstruction, perianastomotic hemorrhage requiring 3 units of packed red cells and discontinuation of antiplatelet therapy. 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 Type II diabetes mellitus Male gynecomastia GERD Osteoarthrosis Chronic headaches. BPH. History of DVT Depression Anxiety Chronic rhinitis Bilateral shoulder surgery Cholecystectomy Prostate biopsy Appendectomy T/A as a child Inguinal hernia repair Family History: Father with multiple myeloma. Mother with CAD and diabetes mellitus. And with breast cancer. Uncle with prostate cancer. Brother with coronary artery disease status post CABG. Social History: Nonsmoker. No alcohol. No illegal drug use. to market. Three children. Retired. (Dirk Orozco PA-C) Past Medical/Surgical History Problem List: Medical Problems: (1) AV block (2) Benign prostatic hyperplasia (3) Carotid disease, bilateral (4) Chest pain (5) CHF exacerbation (6) Clostridium difficile infection (7) Coronary artery disease (8) Diabetes mellitus, type II (9) DVT (deep venous thrombosis) (10) Dyslipidemia (11) Elevated blood pressure reading (12) GERD (gastroesophageal reflux disease) (13) History of colorectal cancer (14) History of CVA (cerebrovascular accident) (15) History of skin cancer (16) Hypertension (17) Left bundle branch block (18) Malignant neoplasm of rectum (19) Peripheral vascular disease (20) Right humeral fracture (21) Seizure (22) Sick sinus syndrome Surgical Problems: (1) H/O ileostomy (2) History of resection of rectum (3) S/P colon resection (4) Status post cardiac pacemaker procedure (5) Status post cholecystectomy (6) Status post coronary artery bypass grafting (7) Status post shoulder surgery (8) Status post tonsillectomy (Dirk Orozco PA-C) Review Of Systems General: + Weight gain. + edema. No fever or chills. Head: + Headaches. Cardiovascular: See above. Pulmonary: + Cough. No hemoptysis. Gastrointestinal: No nausea or vomiting. Skin: No rash. Musculoskeletal: See above. Neurological: See above. Complete review of systems is as stated above, negative, or noncontributory. (Dirk Orozco PA-C) Allergies Coded Allergies: Iodine (Verified Allergy, Severe, airway edema, 11/18/16) Tramadol (Verified Allergy, Severe, seizures, 11/18/16) Oxycodone (Verified Allergy, Unknown, "itchiness all over", 11/18/16) Felodipine (Verified Adverse Reaction, Mild, cough, 11/18/16) ANCELMO Inhibitors (Verified Adverse Reaction, Unknown, COUGHING, 11/18/16) Codeine (Verified Adverse Reaction, Unknown, hallucinations, depression, ) Medications Reported Home Medications Medications Dose Route/Sig Max Daily Dose Days Date Category Dose Instructions Bisacodyl 5 Mg Tab 5 Mg PO UD PRN 05/02/17 Reported [Nitroglycerin] 0.2% Oint 1 Appln NM Q12 PRN 05/02/17 Reported Centrum Men (Multiple Vitamins W/ Minerals) 1 Tab Tab 1 Tab PO DAILY 05/02/17 Reported Coenzyme Q-10 (Coenzyme Q10 (Ubidecarenone)) 100 Mg Cap 100 Mg PO DAILY 05/02/17 Reported Magnesium Oxide (Magnesium Oxide (Mg Supplement) 400 Mg Tab 400 Mg PO DAILY 05/02/17 Reported Aspirin Ec (Aspirin) 81 Mg Tab 81 Mg PO QPM 05/02/17 Reported Hyoscyamine Sulfate 0.125 Mg Tab 0.125 Mg PO Q4H PRN 05/02/17 Reported Furosemide 20 Mg Tab 20 Mg PO Q2D 05/02/17 Reported Keppra (Levetiracetam) 500 Mg Tab 500 Mg PO BID 05/02/17 Reported Potassium Chloride Cr (Potassium Chloride) 10 Meq Tab 10 Meq PO Q2D 05/02/17 Reported Cozaar (Losartan Potassium) 100 Mg Tab 100 Mg PO DAILY 05/02/17 Reported Carvedilol 12.5 Mg Tab 12.5 Mg PO BID 05/02/17 Reported Clopidogrel (Clopidogrel Bisulfate) 75 Mg Tab 75 Mg PO QPM 05/02/17 Reported Sertraline HCl 50 Mg Tab 50 Mg PO DAILY 05/02/17 Reported Finasteride 5 Mg Tab 5 Mg PO DAILY 05/02/17 Reported Vancomycin (Vancomycin Hcl) 125 Mg Cap 125 Mg PO Q6H 05/02/17 Reported PRESCRIBED 04/20/2017, TAKE DIRECTED UNTIL GONE Apresoline (Hydralazine Hcl) 25 Mg Tab 12.5 Mg PO QID 05/02/17 Reported Nitrostat (Nitroglycerin) 0.4 Mg Tab 0.4 Mg SL UD PRN 01/23/[address] ONE TABLET UNDER THE TONGUE EVERY 5 MINUTES FOR UP TO 3 DOSES IF NEEDED FOR CHEST PAIN (Dirk Orozco PA-C) Physical Exam Vital Signs (Last 8hrs): Last 8 Hrs Date Time Temp Pulse Resp B/P (MAP) Pulse Ox O2 Delivery O2 Flow Rate FiO2 05/03/17 12:00 95 Room Air 05/03/17 11:53 36.7 61 16 167/99 (121) 94 Room Air 05/03/17 08:00 96 Room Air 05/03/17 07:50 36.7 63 16 157/85 (109) 94 Room Air General Appearance: Alert and Oriented x3. NAD. Head: Normocephalic Atraumatic. Eyes: PER, EOMI, conjunctiva and sclera clear Neck: Supple. Bilateral carotid bruits. Mildly elevated JVP. Respiratory: Left basilar rales. Right basilar rales. No wheeze. Cardiovascular: Regular, 82 bpm. No murmurs. No rubs. PMI non displaced. Abdomen: +BS. Soft. nontender. Extremities: No edema, no clubbing or cyanosis. distal pulses 2/4 bilaterally. Neuro: No focal deficits. Psychiatric: Normal affect. (Dirk Orozco, JOMAR) Data Last 24 Hours Test 05/02/17 21:30 05/02/17 22:55 05/03/17 05:53 05/03/17 11:32 White Blood Count 7.59 K/uL 6.96 K/uL Red Blood Count 4.34 M/uL 3.91 M/uL Hemoglobin 13.3 g/dL 12.2 g/dL Hematocrit 41.3 % 36.9 % Mean Corpuscular Volume 95.2 fL 94.4 fL Mean Corpuscular Hemoglobin 30.6 pg 31.2 pg Mean Corpuscular Hemoglobin Concent 32.2 g/dl 33.1 g/dl Platelet Count 143 K/uL 126 K/uL Mean Platelet Volume 10.3 fL 10.2 fL Neutrophils (%) (Auto) 79.1 % 70.0 % Lymphocytes (%) (Auto) 11.5 % 17.4 % Monocytes (%) (Auto) 6.1 % 8.9 % Eosinophils (%) (Auto) 2.1 % 2.3 % Basophils (%) (Auto) 0.1 % 0.1 % Neutrophils # (Auto) 6.01 K/uL 4.87 K/uL Lymphocytes # (Auto) 0.87 K/uL 1.21 K/uL Monocytes # (Auto) 0.46 K/uL 0.62 K/uL Eosinophils # (Auto) 0.16 K/uL 0.16 K/uL Basophils # (Auto) 0.01 K/uL 0.01 K/uL RDW Standard Deviation 50.7 fL 49.6 fL RDW Coefficient of Variation 14.6 % 14.6 % Immature Granulocyte % (Auto) 1.1 % 1.3 % Immature Granulocyte # (Auto) 0.08 K/uL 0.09 K/uL Prothrombin Time 12.2 SECONDS Prothromb Time International Ratio 1.1 Sodium Level 142 mmol/L 145 mmol/L Potassium Level 4.1 mmol/L 3.8 mmol/L Chloride Level 109 mmol/L 111 mmol/L Carbon Dioxide Level 27 mmol/L 27 mmol/L Anion Gap 6.0 mmol/L 7.0 mmol/L Blood Urea Nitrogen 28 mg/dl 29 mg/dl Creatinine 1.30 mg/dl 1.30 mg/dl Est Creatinine Clear Calc Drug Dose 42.9 ml/min 42.9 ml/min Estimated GFR () 61.0 61.0 Estimated GFR (Non- 52.6 52.6 BUN/Creatinine Ratio 21.2 22.5 Random Glucose 158 mg/dl 112 mg/dl Calcium Level 8.6 mg/dl 8.7 mg/dl Magnesium Level 2.3 mg/dl Total Bilirubin 0.6 mg/dl Aspartate Amino Transf (AST/SGOT) 53 U/L Alanine Aminotransferase (ALT/SGPT) 97 U/L Alkaline Phosphatase 160 U/L Troponin I 0.025 ng/ml 0.041 ng/ml Pro-B-Type Natriuretic Peptide 66062 pg/ml Total Protein 7.1 gm/dl Albumin 3.7 gm/dl Globulin 3.4 gm/dl Albumin/Globulin Ratio 1.1 Lipase 115 U/L Thyroid Stimulating Hormone (TSH) 2.140 uIu/ml Urine Color YELLOW Urine Appearance CLEAR Urine pH 5.5 Urine Specific [place] 1.026 Urine Protein 2+ Urine Glucose (UA) NEG Urine Ketones NEG Urine Occult Blood NEG Urine Nitrite NEG Urine Bilirubin NEG Urine Urobilinogen NEG Urine Leukocyte Esterase NEG Urine WBC (Auto) 1-5 /hpf Urine RBC (Auto) 5-10 /hpf Urine Hyaline Casts (Auto) 1-5 /lpf Urine Epithelial Cells (Auto) 10-20 /lpf Urine Bacteria (Auto) NEG Bedside Glucose 131 mg/dl Imaging: See above. EKG: See above. Telemetry reviewed: Atrial sensed, ventricular paced rhythm. (Pam,Dirk, PA-C) Assessment & Plan Markedly complex 76-year-old male presenting with signs and symptoms of acute decompensated systolic congestive heart failure and possible left lower lobe pneumonia. Uncontrolled hypertension observed, possibly contributing to presenting symptoms. Pacemaker interrogation requested given report of palpitations, possibly atrial arrhythmias contributing to decompensation. Patient has experienced significant in presenting symptoms after administration of 40 mg IV furosemide. Given chest x-ray and examination findings will continue low-dose IV diuretic therapy at least another day, reassessing need for ongoing use in the morning. Carvedilol will be increased to 25 mg twice per day for additional heart rate and blood pressure control. There is room to increase hydralazine dosing if needed for additional blood pressure control. Strict I/O's and daily weights on a standing scale should be obtained. Further recommendations pending the above, evaluation by Dr. Morales, and his ongoing hospitalization. (Dirk Orozco PA-C) Cardiology attending: Pt seen and examined, agree with findings and assessment as per Dirk Mckeon. Presented volume overloaded, diuresed 1.5L already and breathing improved. BP also significantly elevated, will uptitrate hydralazine. (Mark Morales, Hardy.O.)
[2017-05-03] MEDS: CLOPIDOGREL BISULFATE 75 MG TAB PO SCH (19:54)
[2017-05-03] MEDS: CARVEDILOL 12.5 MG TAB PO SCH (19:54)
[2017-05-03] MEDS: ASPIRIN 81 MG ECTAB PO SCH (19:54)
--- NOTE | 2017-05-03 20:12 | Progress Note ---
Progress Note Date of Service May 03, 2017. Progress Note PT ADMITTED EARLIER TODAY PLEASE SEE h& p FOR DETAIL 76 yo M admitted with SOB , WARD , palpitatio n symptom markedly improved with X1 IV Lasix given in ED Cxray shows persisted left lower lobe infiltrate will start on PO Doxycycline pt is to be continued with PO vancomycin to complete course for recent C diff ( stool positive for C diff PCR on 04/19/17 at [facility] ) Cardiology eval requested appreciate input adequate diuresis Hydralazine dose adjusted for elevated BP cont to monitor pt in Tele
[2017-05-03] MEDS: DOXYCYCLINE HYCLATE 100 MG CAP PO SCH (21:09)
[2017-05-04] VITALS (7 sets, daily range): BP systolic 138–165; BP diastolic 76–98; PULSE 60–79; TEMP 36.5–37; O2SAT 93–98
[2017-05-04] MEDS: RASPBERRY SYRUP 5 ML UDP PO SCH ×2 (05:46→11:16)
[2017-05-04] MEDS: VANCOMYCIN HCL 125 MG/2.5ML SOLN PO SCH ×2 (05:46→11:16)
[2017-05-04 06:13] LABS: BUN/CREATININE RATIO 23.2 (10-20); CREATININE 1.2 mg/dl (0.60-1.40); POTASSIUM 3.7 mmol/L (3.5-5.1)
[2017-05-04 06:47] LABS: CALCIUM 8.8 mg/dl (8.5-10.1)
[2017-05-04] MEDS: INSULIN ASPART 100 UNITS/ML 3 ML PEN SC SCH ×4 (07:00→20:53)
[2017-05-04 07:54] LABS: ESTIMATED AVERAGE GLUCOSE 126 mg/dl; HA1C FLAG Normal (Normal)
[2017-05-04] MEDS: ENOXAPARIN 40 MG/0.4 ML SYR SC SCH (08:27)
[2017-05-04] MEDS: FINASTERIDE 5 MG TAB PO SCH (08:27)
[2017-05-04] MEDS: LOSARTAN POTASSIUM 50 MG TAB PO SCH (08:28)
[2017-05-04] MEDS: LEVETIRACETAM 500 MG TAB PO SCH ×2 (08:28→19:39)
[2017-05-04] MEDS: CARVEDILOL 12.5 MG TAB PO SCH ×2 (08:28→19:39)
[2017-05-04] MEDS: CEROVITE ADV FORMULA TAB PO SCH (08:28)
[2017-05-04] MEDS: SERTRALINE HCL 50 MG TAB PO SCH (08:28)
[2017-05-04] MEDS: DOXYCYCLINE HYCLATE 100 MG CAP PO SCH ×2 (08:29→19:40)
--- NOTE | 2017-05-04 08:29 | Clinical Documentation Query ---
QUERY 1 OF [address] CRAIG, In your clinical opinion is this patient being managed for: ( x) Acute on chronic combined systolic and diastolic CHF ( ) Acute on chronic systolic CHF ( ) Acute on chronic diastolic CHF ( ) Other explanation of clinical findings (Please Explain) ( ) Unable to determine (Please Define) ( ) Need to Discuss ( ) Not Agree The medical record reflects the following clinical findings, treatment, and risk factors. Clinical Indicators: 76 yo male presenting with worsening heart palpitations. Diagnosed with CHF exacerbation. CXR showed L base infiltrate with superimposed mild congestive failure. BNP 47936. Treatment: tele, IV lasix, continue coreg/apresoline/cozaar, cardiology consult, ECHO pending, daily wts, I/O Risk Factors: age, DM, HTN, CAD, VA, CVA QUERY 2 OF 3 In your clinical opinion is this patient being managed for: ( x) Chronic kidney disease, stage 2-3 ( ) Other explanation of clinical findings (Please Explain) ( ) Unable to determine (Please Define) ( ) Need to Discuss ( ) Not Agree The medical record reflects the following clinical findings, treatment, and risk factors. Clinical Indicators: Review of historical GFR shows range of 53-78.9 over the past year. Treatment: monitor PRP's, treat comorbid diseases. Risk Factors: age, CVA, DM, HTN, CHF, VA QUERY 3 OF 3 In your clinical opinion is this patient being managed for: ( x) Pneumonia ( ) Other explanation of clinical findings (Please Explain) ( ) Unable to determine (Please Define) ( ) Need to Discuss ( ) Not Agree The medical record reflects the following clinical findings, treatment, and risk factors. Clinical Indicators:ER documentation includes pneumonia. CXR with infiltrate L base. Treatment: IV levaquin, po vibramycin, Risk Factors: age, DM Please clarify and document your clinical opinion in the progress notes and discharge summary. Terms such as "probable", "suspected", "likely", "questionable", "possible", or "still to be ruled out" are acceptable. IF IN AGREEMENT, YOU MUST DOCUMENT ABOVE DIAGNOSTIC STATEMENT IN DAILY PROGRESS NOTES AND DISCHARGE SUMMARY. This document is not part of the patient's record. Thank You, Delores Dalton RN [phone]
--- NOTE | 2017-05-04 09:57 | Cardiology Follow-Up ---
Subjective General Date of Service: May 04, 2017. Chief Complaint: SOB Pt evaluation today including: conversation w/ patient, physical exam, chart review, lab review, review of studies, review of inpatient medication list History of Present Illness Patient seen and examined. No complaints. Denies chest pain. No palpitations. Dyspnea is back to baseline. No abdominal, scrotal, or peripheral edema I/O's negative 1,820 mL's overall Telemetry: Intermittent atrial pacing. Ventricular pacing 100%. There was a 4 and a 9 beat VPC run at 09:14:19 and 9:14:48; I suspect this was during device interrogation by the [employer] Sheriff Deputy. Pacemaker interrogation earlier this morning demonstrated appropriate function with adequate batter reserve. Estimated remaining longevity is 4 years. No mode switches, atrial high rate episodes, or ventricular high rate episodes observed since last interrogation on 02/01/2017. Rhythm -[employer] 59.2%, AP-[employer] 40.7%. -VS 0.1%. Allergies Coded Allergies: Iodine (Verified Allergy, Severe, airway edema, 11/18/16) Tramadol (Verified Allergy, Severe, seizures, 11/18/16) Oxycodone (Verified Allergy, Unknown, "itchiness all over", 11/18/16) Felodipine (Verified Adverse Reaction, Mild, cough, 11/18/16) ANCELMO Inhibitors (Verified Adverse Reaction, Unknown, COUGHING, 11/18/16) Codeine (Verified Adverse Reaction, Unknown, hallucinations, depression, ) Social History Smoking Status: Never Smoker Hx Tobacco Use In Past Year?: No Hx Alcohol Use - Type And Amou: No Hx Substance Use - Type And Am: No Problem List Medical Problems: (1) Anxiety Status: Acute (2) Closed right humeral fracture Status: Acute (3) Constipation Status: Acute (4) Dehydration Status: Acute (5) Dyspnea on exertion Status: Acute (6) Headache Status: Acute (7) History of CVA (cerebrovascular accident) Status: Acute (8) Hyperglycemia Status: Acute (9) Hypomagnesemia Status: Acute (10) Left shoulder pain Status: Acute (11) Pneumonia Status: Acute (12) Precordial chest pain Status: Acute (13) Proctitis Status: Acute (14) Seizure Status: Acute (15) Shortness of breath Status: Acute (16) Unresponsive episode Status: Acute (17) Weakness Status: Acute (18) Weakness Status: Acute Physical Exam Vital Signs Last Vital Signs Documentation Date Time Temp Pulse Resp B/P (MAP) Pulse Ox O2 Delivery O2 Flow Rate FiO2 05/04/17 07:30 Room Air 05/04/17 07:16 36.9 60 20 162/90 (114) 94 Physical Exam Constitutional: Level of Distress: NAD, chronically ill Psychiatric: Mental Status: active & alert Orientation: to time, to place, to person Memory: recent memory normal, remote memory normal Head: normocephalic, atraumatic Eyes: Pupils: PERRLA Neck: pertinent finding (Normal JVP) Lungs: Respiratory effort: no dyspnea Auscultation: no wheezing, no rales/crackles, no rhonchi, deminished air movement Cardiovascular: Heart Auscultation: RRR, no rubs, II/ KRISTEN Peripheral Pulses: Radial Pulse: normal on the left, normal on the right Dorsalis Pedis Pulse: decreased on the left, decreased on the right Abdomen: Bowel Sounds: normal Inspection & Palpation: soft, non-distended, no masses Liver: non-tender Extremities: no cyanosis, no clubbing, edema (Trivial edema) Neurologic: Sensation: pertinent finding (residual deficit post cva. no new deficits appreciated) Assessment and Plan Assessment and Plan Complex 76-year-old male presenting with signs and symptoms of acute decompensated systolic congestive heart failure and possibly left lower lobe pneumonia. Uncontrolled hypertension observed. Coreg and Hydralazine increased. Will add Isordil today Pacemaker interrogation today demonstrates appropriate function without arrhythmia; rhythm RV paced 100%. Given reduction in LV systolic function and 100% RV pacing will arrange for outpatient EP consultation to consider device upgrade Resume oral furosemide at 20 mg per day (home dose was every other day) Increase activity as tolerated. Cardiology attending: Pt seen and examined, agree with findings and assessment as per Dirk Mckeon. LV systolic function has decreased, in the light of 100% RV pacing will refer to EP as outpatient for device upgrade. Otherwise, appears to be close to baseline. No further cardiac testing or intervention necessary at this time. BP improved with medication changes as above. Laboratory Results Last 24 Hours Test 05/03/17 11:32 05/03/17 16:22 05/03/17 19:51 05/04/17 05:23 Bedside Glucose 131 mg/dl 142 mg/dl 129 mg/dl Sodium Level 147 mmol/L Potassium Level 3.7 mmol/L Chloride Level 112 mmol/L Carbon Dioxide Level 28 mmol/L Anion Gap 7.0 mmol/L Blood Urea Nitrogen 28 mg/dl Creatinine 1.20 mg/dl Est Creatinine Clear Calc Drug Dose 46.5 ml/min Estimated GFR () 67.2 Estimated GFR (Non- 58.0 BUN/Creatinine Ratio 23.2 Random Glucose 127 mg/dl Estimated Average Glucose 126 mg/dl Hemoglobin A1c 6.0 % Calcium Level 8.8 mg/dl Test 05/04/17 06:33 Bedside Glucose 123 mg/dl
[2017-05-04] MEDS: ISOSORBIDE DINITRATE 5 MG TAB PO SCH ×2 (11:15→16:39)
[2017-05-04] MEDS: FUROSEMIDE 20 MG TAB PO SCH (11:16)
--- NOTE | 2017-05-04 11:58 | Progress Note ---
Internal Med Progress Note Date of Service: May 04, 2017. Provider Documentation: SUBJECTIVE: feels like his baseline had uneventful night , no complain of SOB or WARD , no cough lower extremity swelling has resolved OBJECTIVE: Vital Signs-as noted below Exam: General-elderly male ,no sign of distress Eyes-sclera non icteric Neck-NO JVD Lungs-+ crackles at base Heart-regular S1/s2 Abdomen-soft, non tender Extremities-no lower ext edema Neuro-hearing loss, mild expressive aphasia due to prior stroke , AAO x3 Lab data as noted below. ASSESSMENT & PLAN: (1) CHF exacerbation hx ischemic cardiomyopathy Acute on chronic combined systolic /diastolic heart failure presented with SOB /WARD symptom improved with Diuresis appreciate input form Cardiology Lasix dose adjusted to 20 mg daily ( was on every other day ) cont Losartan ECHO: strict IOs, daily weights, CHF education (2) Coronary artery disease Assessment & Plan: sp CABG, stenting no active coronary issues cont on aspirin /Plavix /Coreg /Isordil added by Cardiology (3) Hypertension Assessment & Plan: BP was elevated Hydralazine dose increased by Cardiology cont on Coreg /Lasix /Losartan/Isordil added by Cardiology (4) Diabetes mellitus, type II Assessment & Plan: diet controlled well controlled as of recent outpx HgA1c ISS BG goal 140-180 CKD STAGE 3: Renal function as baseline cont to monitor PRP while getting diuresis LEFT LOWER LOBE PNEUMONIA : cxray shows left lower lobe infiltrate has persistent cough , no fever or chills empiric Abx with Doxycycline ' complete 5 days course Sick sinus syndrome Assessment & Plan: sp PPM pacemaker interrogation shows adequate function and battery life predominantly rt ventricular pacing will need out pt EP eval to adjust pacemaker leads to change to biventricular pacing (6) History of CVA (cerebrovascular accident) cont statin /Aspirin /Plavix (7) Clostridium difficile infection Assessment & Plan: px improving on recent outpx PO Vanco course Dx on 04/19/17 completed 2 weeks course will D/C PO vancomycin no reports of diarrhea or loose stool (8) Peripheral vascular disease (9) History of colorectal cancer Assessment & Plan: sp surgery/chemoradiation (10) DVT (deep venous thrombosis) Assessment & Plan: past hx coumadin not on any active anticoagulation at present (11) Seizure disorder Stable on Keppra FULL CODE DVT PROPHYLAXIS sub q Lovenox DISPOSITION possible discharge home tomorrow Vital Signs: Date Time Temp Pulse Resp B/P (MAP) Pulse Ox O2 Delivery O2 Flow Rate FiO2 05/04/17 11:29 Room Air 05/04/17 07:30 Room Air 05/04/17 07:16 36.9 60 20 162/90 (114) 94 05/04/17 04:00 Room Air 05/04/17 04:00 36.6 64 20 138/77 (97) 94 Room Air 05/04/17 00:00 36.6 63 18 144/81 (102) 95 Room Air 05/04/17 00:00 Room Air 05/03/17 20:00 Room Air 05/03/17 18:51 37.1 60 18 153/88 (109) 96 Room Air 05/03/17 16:00 Room Air 05/03/17 15:15 36.7 63 14 162/90 (114) 96 Room Air Lab Results: Results Past 24 Hours Test 05/03/17 16:22 05/03/17 19:51 05/04/17 05:23 05/04/17 06:33 Range/Units Bedside Glucose 142 129 123 70-99 mg/dl Sodium Level 147 136-145 mmol/L Potassium Level 3.7 3.5-5.1 mmol/L Chloride Level 112 98-107 mmol/L Carbon Dioxide Level 28 21-32 mmol/L Anion Gap 7.0 3-11 mmol/L Blood Urea Nitrogen 28 7-18 mg/dl Creatinine 1.20 0.60-1.40 mg/dl Est Creatinine Clear Calc Drug Dose 46.5 ml/min Estimated GFR () 67.2 Estimated GFR (Non- 58.0 BUN/Creatinine Ratio 23.2 10-20 Random Glucose 127 70-99 mg/dl Estimated Average Glucose 126 mg/dl Hemoglobin A1c 6.0 4.5-5.6 % Calcium Level 8.8 8.5-10.1 mg/dl Test 05/04/17 11:30 Range/Units Bedside Glucose 114 70-99 mg/dl
--- NOTE | 2017-05-04 12:36 | ECHOCARDIOGRAM REPORT ---
*NOTICE TO RECEIVING REPUBLICAN AGENCY This information is strictly Confidential and protected under [place] law. [place] law prohibits you from making any further disclosure of this information unless further disclosure is expressly permitted by the written consent of the person to whom it pertains or is authorized by law. A general authorization for the release of medical or other information is not sufficient for this purpose. Hospital accepts no responsibility if the information is made available to any other person, INCLUDING THE PATIENT. Interpretation Summary * Echocardiogram Report * Name: JACQUIE DUARTE Study Date: 05/03/2017 01:45 PM BP: 157/85 mmHg * Patient Location: C.2E\S\E201\S\1 HR: 65 * : 1940 (M/d/yy) Gender: Male Height: 66 in * Age: 76 yrs Ethnicity: CA Weight: 153 lb * Ordering Physician: Allie Hanson * Referring Physician: Self, Referred * Performed By: Fartun Davies RCS * * Reason For Study: CHF * BSA: 1.8 m2 * -- Conclusions -- * Compared to previous study of 09/12/16: LV systolic function has reduced and PASP has increased. * Mildly dilated LV chamber size with normal wall thickness. * Severely reduced LV systolic function, EF 15-20%. * Akinesis of the inferior/inferolateral morillo with moderate to severe global hypokinesis. * The right ventricular cavity size is normal (basal dimension <4.2 cm in right ventricular apical 4-chamber view). The right ventricular systolic function is reduced as assessed by tricuspid annular plane systolic excursion (TAPSE) (TAPSE <1.6 cm). * Aortic valve sclerosis moderate, without significant aortic valvular stenosis. * Mild mitral regurgitation. * Pulmonary hypertension is present, PASP of 47 mmHg. Procedure Details * A complete two-dimensional transthoracic echocardiogram was performed (2D, M-mode, Doppler and color flow Doppler). * A contrast injection of Definity was performed to improve assessment of LV function. * Contrast was injected into an intravenous site in the right arm. * One vial of Definity ultrasound contrast was diluted in normal saline to a total volume of 10 ml. A total of '4' ml of solution was administered during imaging. * Lot # [id number] of Definity utilized for procedure. * Expiration date . * The attending nurse who injected the contrast agent was Cristal Cain RN. Left Ventricle * The left ventricle is mildly dilated. * There is no thrombus. * There is normal left ventricular wall thickness. * Ejection Fraction = 15-20%. * Left ventricular systolic function is severely reduced. * Akinesis of the inferior/inferolateral morillo with moderate to severe global hypokinesis. Right Ventricle * The right ventricular cavity size is normal (basal dimension <4.2 cm in right ventricular apical 4-chamber view). * There is a pacemaker lead in the right ventricle. * The right ventricular systolic function is reduced as assessed by tricuspid annular plane systolic excursion (TAPSE) (TAPSE <1.6 cm). Atria * The left atrial size is normal. * Right atrial size is normal. * No ASD detected; PFO is not assessed. Mitral Valve * The mitral valve anatomy is normal. * There is no mitral valve stenosis. * There is mild mitral regurgitation. Tricuspid Valve * The tricuspid valve is normal in structure and function. Aortic Valve * The aortic valve is trileaflet. * Aortic valve sclerosis moderate, without significant aortic valvular stenosis. * There is no significant aortic regurgitation. Pulmonic Valve * The pulmonary valve is not well seen, but the Doppler examination is normal without significant regurgitation or stenosis. Great Vessels * The aortic root is normal size. Pericardium/Pleural * There is no pericardial effusion. MMode 2D Measurements and Calculations RVDd 5.4 cm IVSd 0.81 cm LVIDd 5.4 cm LVIDs 4.5 cm LVPWd 0.77 cm IVS/LVPW 1.0 FS 15.5 % EDV(Teich) 140.4 ml ESV(Teich) 94.9 ml EF(Teich) 32.4 % EDV(cubed) 156.1 ml ESV(cubed) 94.2 ml EF(cubed) 39.7 % LV mass(C)d 151.8 grams LV mass(C)dI 85.1 grams/m\S\2 SV(Teich) 45.5 ml SI(Teich) 25.5 ml/m\S\2 SV(cubed) 61.9 ml SI(cubed) 34.7 ml/m\S\2 LVAd ap4 40.8 cm\S\2 LVLd ap4 9.4 cm EDV(MOD-sp4) 144.2 ml EDV(sp4-el) 150.0 ml LVAs ap4 35.1 cm\S\2 LVLs ap4 8.6 cm ESV(MOD-sp4) 111.9 ml ESV(sp4-el) 121.8 ml EF(MOD-sp4) 22.4 % EF(sp4-el) 18.8 % LVAd ap2 44.7 cm\S\2 LVLd ap2 10.3 cm EDV(MOD-sp2) 159.6 ml EDV(sp2-el) 165.3 ml LVAs ap2 34.4 cm\S\2 LVLs ap2 9.3 cm ESV(MOD-sp2) 106.6 ml ESV(sp2-el) 107.8 ml EF(MOD-sp2) 33.2 % EF(sp2-el) 34.8 % LVLd %diff 8.1 % EDV(MOD-bp) 157.6 ml LVLs %diff 7.7 % ESV(MOD-bp) 109.6 ml EF(MOD-bp) 30.4 % SV(MOD-sp4) 32.3 ml SI(MOD-sp4) 18.1 ml/m\S\2 SV(MOD-sp2) 53.0 ml SI(MOD-sp2) 29.7 ml/m\S\2 SV(MOD-bp) 48.0 ml SI(MOD-bp) 26.9 ml/m\S\2 SV(sp4-el) 28.1 ml SI(sp4-el) 15.8 ml/m\S\2 SV(sp2-el) 57.5 ml SI(sp2-el) 32.2 ml/m\S\2 Doppler Measurements and Calculations MR max farhat 467.8 cm/sec MR max PG 87.5 mmHg MR mean farhat 335.0 cm/sec MR mean PG 51.7 mmHg MR VTI 186.4 cm TR max farhat 332.6 cm/sec
[2017-05-04] MEDS: ASPIRIN 81 MG ECTAB PO SCH (19:39)
[2017-05-04] MEDS: CLOPIDOGREL BISULFATE 75 MG TAB PO SCH (19:40)
[2017-05-05 04:00] VITALS: BP 154/92; PULSE 68; TEMP 36.8; O2SAT 95
[2017-05-05] MEDS: INSULIN ASPART 100 UNITS/ML 3 ML PEN SC SCH ×2 (07:00→12:14)
[2017-05-05 07:11] VITALS: BP 146/79; PULSE 73; TEMP 37; O2SAT 94
[2017-05-05] MEDS: ISOSORBIDE DINITRATE 5 MG TAB PO SCH (07:19)
[2017-05-05] MEDS: DOXYCYCLINE HYCLATE 100 MG CAP PO SCH (07:22)
[2017-05-05] MEDS: CEROVITE ADV FORMULA TAB PO SCH (07:22)
[2017-05-05] MEDS: SERTRALINE HCL 50 MG TAB PO SCH (07:22)
[2017-05-05] MEDS: LOSARTAN POTASSIUM 50 MG TAB PO SCH (07:23)
[2017-05-05] MEDS: CARVEDILOL 12.5 MG TAB PO SCH (07:23)
[2017-05-05] MEDS: FUROSEMIDE 20 MG TAB PO SCH (07:23)
[2017-05-05] MEDS: LEVETIRACETAM 500 MG TAB PO SCH (07:23)
[2017-05-05] MEDS: ENOXAPARIN 40 MG/0.4 ML SYR SC SCH (07:24)
[2017-05-05] MEDS: FINASTERIDE 5 MG TAB PO SCH (07:24)
[2017-05-05] MEDS ORDERED: CRG125 PO (07:26)
[2017-05-05] MEDS ORDERED: POTA10CA28 PO (07:26)
[2017-05-05] MEDS ORDERED: FURO40TA3 PO (07:27)
--- NOTE | 2017-05-05 07:29 | Discharge Instructions ---
Discharge Instructions Date of Service May 05, 2017. Admission Reason for Admission: Chf Exacerbation Discharge Discharge Diagnosis / Problem: CHF /BIVENTRICULAR FAILURE /LEFT LOWER LOBE PNEUMONIA Discharge Goals Goal(s): Improve disease control, Diagnostic testing Activity Recommendations Activity Limitations: resume your previous activity . Instructions / Follow-Up Instructions / Follow-Up HOSPITAL FOLLOW UP ON 05/08/2017 @ 1:[address] Xavi Moreno MD Family Practice [facility] CARDIOLOGY FOLLOW UP 05/11/2017 @ 1:30 PM Pacer Clinic [facility] Cardiology, [facility] NEW MEDICATIONS : LASIX DOSE INCREASED TO 20 MG DAILY ( WAS 20 MG EVERY OTHER DAY ) TAKE POTASSIUM TABLET DAILY WITH LASIX COREG INCREASED TO 25 MG TWICE DAILY ISORDIL ( NEW MEDICATION FOR HYPERTENSION ) 10 MG THREE TIMES DAILY HYDRALAZINE DOSE INCREASED TO 10 MG THREE TIMES DAILY Call your Primary Care doctor if any of the following symptoms or problems start or get worse: * Shortness of breath or difficulty breathing * Wake up at night short of breath * Chest pain * Cough * Swelling of your hands, feet, or legs * More fatigued or tired with your normal activity * Palpitations - sudden fast heart beats WEIGHT * Weigh yourself every morning after using the bathroom. * Use the same scale. * Wear the same amount of clothing. * Write your weight down on a chart. * Call your Primary Care doctor if you gain more than 2-3 pounds in 1-2 days. MEDICATIONS * Use this discharge instruction sheet for medication instructions. * Take your medications at the time your doctor ordered. * Do not skip a dose of your medicines. * If you miss a dose of medicine, take it as soon as possible, but DO NOT DOUBLE A DOSE. * Read your medicine information when you get home. * Know all of the side effects of your medicine. If in doubt, ask your pharmacist * Call your Primary Care doctor's office if you have any side effects. * Be sure all of your doctors know what medicine and herbs you take (including cold, flu, and herbal medicine). Take the following with you to your follow-up doctor appointments: * Weight Chart * Medication List * List of questions Do not drink excessive alcohol, beer or wine. Current Hospital Diet Patient's current hospital diet: AHA Diet (Heart Healthy), Diabetes Type 2 Diet Discharge Diet Recommended Diet: AHA Diet (Heart Healthy), Low Sodium Diet (2gm Na), Diabetes Type 2 Diet Pending Studies Studies pending at discharge: no Laboratory Results Hemoglobin A1c Test 05/04/17 05:23 Range/Units Estimated Average Glucose 126 mg/dl Hemoglobin A1c 6.0 H 4.5-5.6 % Medical Emergencies . Who to Call and When: Call 911 or go to the Emergency Room if: * If at any time you feel your situation is an emergency * You have tightness or pain in your chest that does not go away with rest or Nitroglycerin * You are very short of breath even with rest . Non-Emergent Contact Non-Emergency issues call your: Primary Care Provider . . "Provider Documentation" section prepared by Allie Hanson. . VTE Core Measure Inpt VTE Proph given/why not?: Enoxaparin (Lovenox)SQ
[2017-05-05 08:00] VITALS: O2SAT 95
--- NOTE | 2017-05-05 09:15 | Cardiology Follow-Up ---
Subjective General Date of Service: May 05, 2017. Chief Complaint: CHF exacerbation Pt evaluation today including: conversation w/ patient, physical exam, chart review, lab review, review of studies, review of inpatient medication list History of Present Illness Patient seen and examined. Denies chest pain. No palpitations. Dyspnea is back to baseline. No abdominal, scrotal, or peripheral edema Blood pressure remains elevated I/O's negative 2,540 mL's overall Telemetry: Intermittent atrial pacing. Ventricular pacing 100%. One six beat run of VT. Pacemaker interrogation on 05/04/2017 demonstrated appropriate function with adequate batter reserve. Estimated remaining longevity: 4 years. No mode switches, atrial high rate episodes, or ventricular high rate episodes observed since last interrogation on 02/01/2017. Rhythm -NEON PUMPER 59.2%, AP-NEON PUMPER 40.7%. -VS 0.1%. Allergies Coded Allergies: Iodine (Verified Allergy, Severe, airway edema, 11/18/16) Tramadol (Verified Allergy, Severe, seizures, 11/18/16) Oxycodone (Verified Allergy, Unknown, "itchiness all over", 11/18/16) Felodipine (Verified Adverse Reaction, Mild, cough, 11/18/16) ANCELMO Inhibitors (Verified Adverse Reaction, Unknown, COUGHING, 11/18/16) Codeine (Verified Adverse Reaction, Unknown, hallucinations, depression, ) Social History Smoking Status: Never Smoker Hx Tobacco Use In Past Year?: No Hx Alcohol Use - Type And Amou: No Hx Substance Use - Type And Am: No Problem List Medical Problems: (1) Anxiety Status: Acute (2) Closed right humeral fracture Status: Acute (3) Constipation Status: Acute (4) Dehydration Status: Acute (5) Dyspnea on exertion Status: Acute (6) Headache Status: Acute (7) History of CVA (cerebrovascular accident) Status: Acute (8) Hyperglycemia Status: Acute (9) Hypomagnesemia Status: Acute (10) Left shoulder pain Status: Acute (11) Pneumonia Status: Acute (12) Precordial chest pain Status: Acute (13) Proctitis Status: Acute (14) Seizure Status: Acute (15) Shortness of breath Status: Acute (16) Unresponsive episode Status: Acute (17) Weakness Status: Acute (18) Weakness Status: Acute Physical Exam Vital Signs Last Vital Signs Documentation Date Time Temp Pulse Resp B/P (MAP) Pulse Ox O2 Delivery O2 Flow Rate FiO2 05/05/17 08:00 95 Room Air 05/05/17 07:11 37.0 73 20 146/79 (101) Physical Exam Constitutional: Level of Distress: NAD, chronically ill Psychiatric: Mental Status: active & alert Orientation: to time, to place, to person Memory: recent memory normal, remote memory normal Head: normocephalic, atraumatic Eyes: Pupils: PERRLA Neck: pertinent finding (Normal JVP) Lungs: Respiratory effort: no dyspnea Auscultation: no wheezing, no rales/crackles, no rhonchi, deminished air movement Cardiovascular: Heart Auscultation: RRR, no rubs, II/ KRISTEN Peripheral Pulses: Radial Pulse: normal on the left, normal on the right Dorsalis Pedis Pulse: decreased on the left, decreased on the right Abdomen: Bowel Sounds: normal Inspection & Palpation: soft, non-distended, no masses Liver: non-tender Extremities: no cyanosis, no clubbing, edema (Trivial edema) Neurologic: Sensation: pertinent finding (residual deficit post cva. no new deficits appreciated) Assessment and Plan Assessment and Plan Complex 76-year-old male presenting with signs and symptoms of acute decompensated systolic congestive heart failure and possibly left lower lobe pneumonia. Volume status essentially normalized with one dose of IV furosemide Furosemide increased to 20 mg/day (prior dosing was 20 mg every other day) Uncontrolled hypertension Coreg increased to 25 mg BID this admission Isordil added 05/04, increased to 10 three times per day. Increase hydralazine to 50 mg three times per day Pacemaker interrogation on 05/04/2017 demonstrated appropriate function without significant arrhythmia; rhythm RV paced 100%. Given reduction in LV systolic function and 100% RV pacing will arrange for outpatient EP consultation to consider device upgrade Nonsustained ventricular tachycardia Carvedilol increased as above. Labs requested. Increase activity as tolerated. Will arrange for close outpatient cardiology follow-up. Office aware, will contact . Cardiology attending: Pt seen and examined, agree with findings and assessment as per Dirk Mckeon. Pt diuresed well. BP now controlled as well. Medications as above. Ok to d/ c to home from cardiac standpoint. Laboratory Results Last 24 Hours Test 6/29/17 11:30 05/04/17 16:33 05/04/17 20:52 05/05/17 06:34 Bedside Glucose 114 mg/dl 143 mg/dl 100 mg/dl 100 mg/dl Test 05/05/17 08:53
[2017-05-05 10:06] LABS: BUN/CREATININE RATIO 20.3 (10-20); CALCIUM 8.9 mg/dl (8.5-10.1); CREATININE 1.2 mg/dl (0.60-1.40); POTASSIUM 3.7 mmol/L (3.5-5.1)
[2017-05-05 11:30] VITALS: BP 135/76; PULSE 67; TEMP 36.6; O2SAT 97
[2017-05-05 12:00] VITALS: O2SAT 96
[2017-05-05] MEDS ORDERED: ISOSORBIDE DINITRATE 10 MG TAB PO SCH (12:00)
[2017-05-05] MEDS ORDERED: POTASSIUM CHLORIDE 20 MEQ TABCR PO ONE (12:00)
[2017-05-05] MEDS ORDERED: APR50 PO (12:19)
[2017-05-05] MEDS ORDERED: ISR10 PO (12:19)
[2017-05-05] MEDS ORDERED: DXY100 PO (12:19)
[2017-05-05 13:37] VITALS: BP 135/76; PULSE 67; TEMP 36.6; O2SAT 96
--- NOTE | 2017-05-05 17:49 | Progress Note ---
Internal Med Progress Note Date of Service: May 05, 2017. Provider Documentation: SUBJECTIVE: SOB has resolved BP much improved after adjustment of meds stable to be discharged home today OBJECTIVE: Vital Signs-as noted below Exam: General-elderly male ,no sign of distress Eyes-sclera non icteric Neck-NO JVD Lungs-+ crackles at base Heart-regular S1/s2 Abdomen-soft, non tender Extremities-no lower ext edema Neuro-hearing loss, mild expressive aphasia due to prior stroke , AAO x3 Lab data as noted below. 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 * Mildly dilated LV chamber size with normal wall thickness. * Severely reduced LV systolic function, EF 15-20%. * Akinesis of the inferior/inferolateral morillo with moderate to severe global hypokinesis. strict IOs, daily weights, CHF education stable to be discharged home with above diuretics change (2) Coronary artery disease Assessment & Plan: sp CABG, stenting no active coronary issues cont on aspirin /Plavix /Coreg /Isordil added by Cardiology (3) Hypertension Assessment & Plan: BP was elevated Antihypertensive dose adjusted by Cardiology Coreg increased to 25 mg BID this admission Isordil added 05/04, increased to 10 three times per day. Increase hydralazine to 50 mg three times per day (4) Diabetes mellitus, type II Assessment & Plan: diet controlled well controlled as of recent outpx HgA1c ISS BG goal 140-180 CKD STAGE 3: Renal function as baseline cont to monitor PRP while getting diuresis LEFT LOWER LOBE PNEUMONIA : cxray shows left lower lobe infiltrate has persistent cough , no fever or chills empiric Abx with Doxycycline ' complete 5 days course Sick sinus syndrome Assessment & Plan: sp PPM pacemaker interrogation shows adequate function and battery life predominantly rt ventricular pacing will need out pt EP eval to adjust pacemaker leads to change to biventricular pacing (6) History of CVA (cerebrovascular accident) cont statin /Aspirin /Plavix (7) Clostridium difficile infection Assessment & Plan: px improving on recent outpx PO Vanco course Dx on 04/19/17 completed 2 weeks course D/C PO vancomycin no reports of diarrhea or loose stool (8) Peripheral vascular disease (9) History of colorectal cancer Assessment & Plan: sp surgery/chemoradiation (10) DVT (deep venous thrombosis) Assessment & Plan: past hx coumadin not on any active anticoagulation at present (11) Seizure disorder Stable on Keppra FULL CODE DVT PROPHYLAXIS sub q Lovenox DISPOSITION discharge home today Vital Signs: Date Time Temp Pulse Resp B/P (MAP) Pulse Ox O2 Delivery O2 Flow Rate FiO2 05/05/17 13:37 36.6 67 20 96 Room Air 05/05/17 12:00 96 Room Air 05/05/17 11:30 36.6 67 20 135/76 (95) 97 Room Air 05/05/17 08:00 95 Room Air 05/05/17 07:11 37.0 73 20 146/79 (101) 94 Room Air 05/05/17 04:00 Room Air 05/05/17 04:00 36.8 68 17 154/92 (112) 95 Room Air 05/05/17 00:01 Room Air 05/04/17 23:48 36.9 79 14 162/98 (119) 96 Room Air 05/04/17 20:00 Room Air 05/04/17 19:26 37.0 77 18 165/86 (112) 93 Room Air Lab Results: Results Past 24 Hours Test 05/04/17 20:52 05/05/17 06:34 05/05/17 09:24 05/05/17 11:28 Range/Units Bedside Glucose 100 100 124 70-99 mg/dl Sodium Level 142 136-145 mmol/L Potassium Level 3.7 3.5-5.1 mmol/L Chloride Level 109 98-107 mmol/L Carbon Dioxide Level 25 21-32 mmol/L Anion Gap 8.0 3-11 mmol/L Blood Urea Nitrogen 24 7-18 mg/dl Creatinine 1.20 0.60-1.40 mg/dl Est Creatinine Clear Calc Drug Dose 46.5 ml/min Estimated GFR () 67.2 Estimated GFR (Non- 58.0 BUN/Creatinine Ratio 20.3 10-20 Random Glucose 176 70-99 mg/dl Calcium Level 8.9 8.5-10.1 mg/dl Magnesium Level 2.0 1.8-2.4 mg/dl
--- NOTE | 2017-05-05 18:01 | Discharge Summary ---
Discharge Summary Date of Service May 05, 2017. Discharge Summary Admission Date: May 02, 2017 at 23:45 Discharge Date: May 05, 2017 Discharge Disposition: Home with services Principal Diagnosis: CHF /BIVENTRICULAR FAILURE /LEFT LOWER LOBE PNEUMONIA Procedures: ECHO : Compared to previous study of 09/12/16: LV systolic function has reduced and PASP has increased. * Mildly dilated LV chamber size with normal wall thickness. * Severely reduced LV systolic function, EF 15-20%. * Akinesis of the inferior/inferolateral morillo with moderate to severe global hypokinesis. Consultations: [facility] Medication Reconciliation New Medications: Furosemide (Lasix) 40 Mg Tab 20 MG PO DAILY for 30 Days, #15 TAB Potassium Chloride (Micro-K Ext Rel) 10 Meq Capcr 10 MEQ PO DAILY for 30 Days, #30 CAP Carvedilol (Carvedilol) 12.5 Mg Tab 25 MG PO BID for 30 Days, #120 TAB 2 Refills Doxycycline Hyclate (Doxycycline Hyclate) 100 Mg Cap 100 MG PO BID for 3 Days, #6 CAP Hydralazine HCl (Hydralazine HCl) 50 Mg Tab 50 MG PO TID for 30 Days, #90 TAB Isosorbide Dinitrate (Isosorbide Dinitrate) 10 Mg Tab 10 MG PO TID@0700,1200,1700 for 30 Days, #90 TAB Continued Medications: Aspirin (Aspirin Ec) 81 Mg Tab 81 MG PO QPM Bisacodyl (Bisacodyl) 5 Mg Tab 5 MG PO UD PRN for Constipation, TAB Clopidogrel Bisulfate (Clopidogrel) 75 Mg Tab 75 MG PO QPM Coenzyme Q10 (Ubidecarenone) (Coenzyme Q-10) 100 Mg Cap 100 MG PO DAILY Finasteride (Finasteride) 5 Mg Tab 5 MG PO DAILY Hyoscyamine Sulfate (Hyoscyamine Sulfate) 0.125 Mg Tab 0.125 MG PO Q4H PRN for Cramping Levetiracetam (Keppra) 500 Mg Tab 500 MG PO BID, TAB Losartan Potassium (Cozaar) 100 Mg Tab 100 MG PO DAILY Magnesium Oxide (Mg Supplement (Magnesium Oxide) 400 Mg Tab 400 MG PO DAILY Multiple Vitamins W/ Minerals (Centrum Men) 1 Tab Tab 1 TAB PO DAILY Nitroglycerin (Nitrostat) 0.4 Mg Tab 0.4 MG SL UD PRN for Chest Pain PLACE ONE TABLET UNDER THE TONGUE EVERY 5 MINUTES FOR UP TO 3 DOSES IF NEEDED FOR CHEST PAIN Sertraline HCl (Sertraline HCl) 50 Mg Tab 50 MG PO DAILY [Nitroglycerin] () 0.2% OINT 1 APPLN OK Q12 PRN for Rectal Spasm Discontinued Medications: Carvedilol (Carvedilol) 12.5 Mg Tab 12.5 MG PO BID Furosemide (Furosemide) 20 Mg Tab 20 MG PO Q2D Hydralazine Hcl (Apresoline) 25 Mg Tab 12.5 MG PO QID Potassium Chloride (Potassium Chloride Cr) 10 Meq Tab 10 MEQ PO Q2D Vancomycin Hcl (Vancomycin) 125 Mg Cap 125 MG PO Q6H, #56 PRESCRIBED 04/20/2017, TAKE DIRECTED UNTIL GONE Referrals At Discharge Follow up Referrals: Physician Referral - 05/08/17 with Xavi Moreno M.D.([facility]) Admission Information HPI (per Admitting provider): 1 day history of shortness of breath especially on exertion. Yesterday patient noted some leg swelling. Patient given extra Lasix. Dry cough symptoms. No fever no chills. Patient also noted left upper extremity discomfort. No actual chest pain. Blood pressure a little higher than usual, some weight gain as per . At the ER, patient given Levaquin for possible pneumonia. Physical Exam (per Admitting): General Appearance: + mild distress, + pertinent finding (anxious) Head: normocephalic Eyes: + pertinent finding (pale palpebral conjunctivae, old right facial droop) Neck: supple Respiratory/Chest: + decreased breath sounds Cardiovascular: + pertinent finding (diminished S1-S2) Abdomen/GI: soft Extremities/Musculoskelatal: no calf tenderness, + pedal edema Neurologic/Psych: + pertinent finding (old right facial asymmetry, decreased strength RUE/RLE chronic) Hospital Course (1) CHF exacerbation/combined systolic and diastolic heart failure compensated after diuresis hx ischemic cardiomyopathy 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 * Mildly dilated LV chamber size with normal wall thickness. * Severely reduced LV systolic function, EF 15-20%. * Akinesis of the inferior/inferolateral morillo with moderate to severe global hypokinesis. strict IOs, daily weights, CHF education stable to be discharged home with above diuretics change (2) Coronary artery disease Assessment & Plan: sp CABG, stenting no active coronary issues cont on aspirin /Plavix /Coreg /Isordil added by Cardiology (3) Hypertension Assessment & Plan: BP was elevated Antihypertensive dose adjusted by Cardiology Coreg increased to 25 mg BID this admission Isordil added 05/04, increased to 10 three times per day. Increase hydralazine to 50 mg three times per day (4) Diabetes mellitus, type II Assessment & Plan: diet controlled well controlled as of recent outpx HgA1c ISS BG goal 140-180 CKD STAGE 3: Renal function as baseline cont to monitor PRP while getting diuresis LEFT LOWER LOBE PNEUMONIA : cxray shows left lower lobe infiltrate has persistent cough , no fever or chills empiric Abx with Doxycycline ' complete 5 days course Sick sinus syndrome Assessment & Plan: sp PPM pacemaker interrogation shows adequate function and battery life predominantly rt ventricular pacing will need out pt EP eval to adjust pacemaker leads to change to biventricular pacing (6) History of CVA (cerebrovascular accident) cont statin /Aspirin /Plavix (7) Clostridium difficile infection Assessment & Plan: px improving on recent outpx PO Vanco course Dx on 04/19/17 completed 2 weeks course D/C PO vancomycin no reports of diarrhea or loose stool (8) Peripheral vascular disease (9) History of colorectal cancer Assessment & Plan: sp surgery/chemoradiation (10) DVT (deep venous thrombosis) Assessment & Plan: past hx coumadin not on any active anticoagulation at present (11) Seizure disorder Stable on Keppra FULL CODE DVT PROPHYLAXIS sub q Lovenox DISPOSITION discharge home today Total time spent on discharge = 40 MINS This includes examination of the patient, discharge planning, medication reconciliation, and communication with other providers. Discharge Instructions Discharge Instructions Date of Service May 05, 2017. Admission Reason for Admission: Chf Exacerbation Discharge Discharge Diagnosis / Problem: CHF /BIVENTRICULAR FAILURE /LEFT LOWER LOBE PNEUMONIA Discharge Goals Goal(s): Improve disease control, Diagnostic testing Activity Recommendations Activity Limitations: resume your previous activity . Instructions / Follow-Up Instructions / Follow-Up HOSPITAL FOLLOW UP ON 05/08/2017 @ 1:[address] Xavi Moreno MD [facility] CARDIOLOGY FOLLOW UP 05/11/2017 @ 1:30 PM Pacer Clinic [facility] Cardiology, [facility] NEW MEDICATIONS : LASIX DOSE INCREASED TO 20 MG DAILY ( WAS 20 MG EVERY OTHER DAY ) TAKE POTASSIUM TABLET DAILY WITH LASIX COREG INCREASED TO 25 MG TWICE DAILY ISORDIL ( NEW MEDICATION FOR HYPERTENSION ) 10 MG THREE TIMES DAILY HYDRALAZINE DOSE INCREASED TO 10 MG THREE TIMES DAILY Call your Primary Care doctor if any of the following symptoms or problems start or get worse: * Shortness of breath or difficulty breathing * Wake up at night short of breath * Chest pain * Cough * Swelling of your hands, feet, or legs * More fatigued or tired with your normal activity * Palpitations - sudden fast heart beats WEIGHT * Weigh yourself every morning after using the bathroom. * Use the same scale. * Wear the same amount of clothing. * Write your weight down on a chart. * Call your Primary Care doctor if you gain more than 2-3 pounds in 1-2 days. MEDICATIONS * Use this discharge instruction sheet for medication instructions. * Take your medications at the time your doctor ordered. * Do not skip a dose of your medicines. * If you miss a dose of medicine, take it as soon as possible, but DO NOT DOUBLE A DOSE. * Read your medicine information when you get home. * Know all of the side effects of your medicine. If in doubt, ask your pharmacist * Call your Primary Care doctor's office if you have any side effects. * Be sure all of your doctors know what medicine and herbs you take (including cold, flu, and herbal medicine). Take the following with you to your follow-up doctor appointments: * Weight Chart * Medication List * List of questions Do not drink excessive alcohol, beer or wine. Current Hospital Diet Patient's current hospital diet: AHA Diet (Heart Healthy), Diabetes Type 2 Diet Discharge Diet Recommended Diet: AHA Diet (Heart Healthy), Low Sodium Diet (2gm Na), Diabetes Type 2 Diet Pending Studies Studies pending at discharge: no Laboratory Results Hemoglobin A1c Test 05/04/17 05:23 Range/Units Estimated Average Glucose 126 mg/dl Hemoglobin A1c 6.0 H 4.5-5.6 % Medical Emergencies . Who to Call and When: Call 911 or go to the Emergency Room if: * If at any time you feel your situation is an emergency * You have tightness or pain in your chest that does not go away with rest or Nitroglycerin * You are very short of breath even with rest . Non-Emergent Contact Non-Emergency issues call your: Primary Care Provider . . "Provider Documentation" section prepared by Allie Hanson. . VTE Core Measure Inpt VTE Proph given/why not?: Enoxaparin (Lovenox)SQ Additional Copies To Xavi Moreno M.D.([facility]) Mark Morales D.O.
[2017-06-27] MEDS ORDERED: POTA10CA28 PO (12:22)
[2017-06-27] MEDS ORDERED: POTA10TA PO (12:22)
[2017-06-27] MEDS ORDERED: OXYC1TAB3 PO (12:22)
[2017-06-27] MEDS ORDERED: NYSCR30 EXT (12:22)
== END 2017-05-05 16:20 | disposition home health service (06) | DRG 291 ==
LOC: C.EDB 20:59 → C.2E 23:45 → ENRESERV 23:52 → EDBEDREQ 05-03 00:23
PROVIDERS: ADMIT Hospitalist; ATTEND Hospitalist
DX: I13.0 Hypertensive heart and chronic kidney disease with heart failure and stage 1 through stage 4 chronic kidney disease, or unspecified chronic kidney disease (principal); I50.43 Acute on chronic combined systolic (congestive) and diastolic (congestive) heart failure; J18.9 Pneumonia, unspecified organism; I47.2 Ventricular tachycardia; N18.3 Chronic kidney disease, stage 3 (moderate); E11.51 Type 2 diabetes mellitus with diabetic peripheral angiopathy without gangrene; E11.22 Type 2 diabetes mellitus with diabetic chronic kidney disease; M19.90 Unspecified osteoarthritis, unspecified site; F32.9 Major depressive disorder, single episode, unspecified; F41.9 Anxiety disorder, unspecified; I25.10 Atherosclerotic heart disease of native coronary artery without angina pectoris; E78.5 Hyperlipidemia, unspecified; K21.9 Gastro-esophageal reflux disease without esophagitis; N40.0 Benign prostatic hyperplasia without lower urinary tract symptoms; I25.5 Ischemic cardiomyopathy; N62 Hypertrophy of breast; G40.909 Epilepsy, unspecified, not intractable, without status epilepticus; R29.810 Facial weakness; J31.0 Chronic rhinitis; Z85.048 Personal history of other malignant neoplasm of rectum, rectosigmoid junction, and anus; Z80.7 Family history of other malignant neoplasms of lymphoid, hematopoietic and related tissues; Z79.82 Long term (current) use of aspirin; Z79.899 Other long term (current) drug therapy; Z91.041 Radiographic dye allergy status; Z88.5 Allergy status to narcotic agent; Z88.8 Allergy status to other drugs, medicaments and biological substances; Z95.0 Presence of cardiac pacemaker; Z95.1 Presence of aortocoronary bypass graft; Z95.5 Presence of coronary angioplasty implant and graft; Z90.49 Acquired absence of other specified parts of digestive tract; Z85.828 Personal history of other malignant neoplasm of skin; Z84.1 Family history of disorders of kidney and ureter; Z82.0 Family history of epilepsy and other diseases of the nervous system; Z86.73 Personal history of transient ischemic attack (TIA), and cerebral infarction without residual deficits; Z82.49 Family history of ischemic heart disease and other diseases of the circulatory system; Z80.9 Family history of malignant neoplasm, unspecified; Z83.3 Family history of diabetes mellitus; Z80.3 Family history of malignant neoplasm of breast; Z80.42 Family history of malignant neoplasm of prostate; Z86.718 Personal history of other venous thrombosis and embolism

== ENCOUNTER 2017-05-09 18:33 | Emergency (ER) | payer OTHER ==
[~2017-05-09] VITALS: Ht 167.6 cm; Wt 74.0 kg
[~2017-05-09 18:33] MED LIST changes: +APR50 PO; -ASPEC81 PO; +ASPI81TA28 PO; +BISA1TAB15 PO; -CARV12.52 PO; -CLOP1TAB15 PO; +COEN100C2 PO; +CRG125 PO; -DOCU-94 PO; +DXY100 PO; -FINA5TAB PO; -FURO-85 PO; +FURO40TA3 PO; -HYDR-4717 PO; -HYDR-5688 PO; -HYOS0.1256 SL; +ISR10 PO; -LEVE500T PO; +LEVE500T13 PO; +LOSA100T65 PO; -LOSA1TAB38 PO; +LVS125 PO; -MAGN1CAP4 PO; +MAGN1TAB19 PO; -MRLP17X PO; +MULT-1030 PO; +Nitroglycerin PR; +PLV75 PO; +PRS5 PO; -SERT50TA PO; +ZLF/50 PO
[2017-05-09 18:39] VITALS: Ht 167.6 cm; Wt 74.0 kg
[2017-05-09] MEDS ORDERED: ISR10 PO (19:02)
[2017-05-09] MEDS ORDERED: SODIUM CHLORIDE 0.9% 1000ML 1,000 ML IV STA (19:02)
--- NOTE | 2017-05-09 19:46 | DIAGNOSTIC IMAGING REPORT ---
SINGLE VIEW CHEST CLINICAL HISTORY: Weakness. Change in mental status. FINDINGS: An AP, portable, upright chest radiograph is compared to study dated 04/25/2017 and correlated with chest CT dated 04/06/2015. The examination is degraded by portable technique and patient rotation. A 2-lead cardiac pacemaker is unchanged in position and partially obscures the left mid chest. The patient is status post midline sternotomy. The heart is enlarged and there is atherosclerotic calcification of the thoracic aorta. Pulmonary vascular congestion has resolved from previous. Chronic interstitial thickening with bibasilar scarring versus atelectasis is unchanged. Trace pleural effusions are suggested. Or focal airspace opacities are seen at the left lung base. No pneumothorax is identified. The skeletal structures are osteopenic. Chronic posttraumatic change is noted in the right humerus. Cholecystectomy clips are seen in the right upper quadrant. IMPRESSION: 1. Cardiomegaly and cardiac pacemaker. Pulmonary vascular congestion has resolved from 05/03/2017. 2. Trace pleural effusions are suggested and there are airspace opacities again noted at the left lung base. This could represent atelectasis versus pneumonia. Clinical correlation will be required. Electronically signed by: Fredy Gould M.D. 05/09/2017 7:45 PM Dictated Date/Time: 05/09/2017 7:43 PM
[2017-05-09 19:57] LABS: BASO % 0.2 %; BASO ABS # 0.01 K/uL (0-0.2); COMPLETE YES; EOS % 2.1 %; HEMATOCRIT 40.7 % (42-52); IG% 1.5 %; LYMPH % 22.2 %; LYMPH ABS # 1.15 K/uL (1.2-3.4); MEAN CELL VOLUME 94.9 fL (80-100); MEAN CORPUSCULAR HEMOGLOBIN 30.3 pg (25-34); MEAN CORPUSCULAR HGB CONC 31.9 g/dl (32-36); MEAN PLATELET VOLUME 9.7 fL (7.4-10.4); PLATELET COUNT 145 K/uL (130-400); RED BLOOD COUNT 4.29 M/uL (4.7-6.1); WHITE BLOOD COUNT 5.18 K/uL (4.8-10.8)
--- NOTE | 2017-05-09 20:07 | DIAGNOSTIC IMAGING REPORT ---
CT SCAN OF THE BRAIN WITHOUT IV CONTRAST CLINICAL HISTORY: Change in mental status. Weakness. COMPARISON STUDY: Prior CT scans of the brain, most recently dated 04/27/2017. TECHNIQUE: Unenhanced axial CT scan of the brain is performed from the vertex to the skull base. CT DOSE: 614.27 mGy.cm FINDINGS: Brain parenchyma: There are age-related involutional changes noting moderate patchy subcortical and periventricular microangiopathic change. Chronic lacunar infarcts are identified in the left basal ganglia and the left thalamus. There is Wallerian degeneration within the left aspect of the joel. There is no hemorrhage, mass effect, or evidence of acute territorial ischemia by CT criteria. Ann-white matter is preserved. No extra-axial fluid collection is seen. Ventricles, sulci, cisterns: Prominent secondary to involutional change. Intracranial vasculature: There is atherosclerotic calcification of the cavernous carotid and vertebral arteries. Calvarium: Unremarkable. Sinuses and mastoids: The visualized paranasal sinuses are clear. The mastoid air cells are well pneumatized. Orbits: The bony orbits are grossly intact. There are bilateral ocular lens implants. IMPRESSION: Senescent changes as above with no hemorrhage, mass effect, or evidence of acute territorial ischemia by CT criteria. There has been no significant change from 04/27/2017. Electronically signed by: Fredy Gould M.D. 05/09/2017 8:06 PM Dictated Date/Time: 05/09/2017 8:03 PM
[2017-05-09 20:10] LABS: INR 1.1 (0.9-1.1); PROTHROMBIN TIME (PATIENT) 11.6 SECONDS (9.0-12.0)
[2017-05-09 20:16] LABS: BUN/CREATININE RATIO 14.2 (10-20); CREATININE 1.3 mg/dl (0.60-1.40); POTASSIUM 4.1 mmol/L (3.5-5.1)
[2017-05-09 20:25] LABS: CKMB/CK RATIO 3.3 (0-3.0); THYROID STIMULATING HORMONE 1.31 uIu/ml (0.300-4.500)
[2017-05-09] MEDS ORDERED: LEVOFLOXACIN 250 MG TAB PO STA (21:01)
[2017-05-09] MEDS ORDERED: LEVO-366 PO (21:03)
--- NOTE | 2017-05-09 21:03 | EMERGENCY ROOM VISIT NOTE ---
History Report prepared by Michelle: Acosta Valdovinos Under the Supervision of: Dr. Christopher Cramer D.O. First contact with patient: 18:52 Chief Complaint: ILLNESS Stated Complaint: COUGH,SORE THROAT,EAR PAIN History of Present Illness The patient is a 76 year old male who presents to the Emergency Room with complaints of a resolving illness starting this morning. The patient is accompanied by his who states that she was having trouble waking up the patient this morning. She states that she was finally able to get him out of bed around 1000, but he was experiencing dysphasia and was mumbling. His states that he was able to ambulate and eat shortly after getting out of bed. She reports that throughout the morning he eventually was able to speak some words, but the patient could not remember what he was saying. She states that she then checked his blood pressure and it was 110/150. The patient's reports that he wanted to go back to sleep following his late breakfast. She states that she tried to get him up by 1300, but was only able to get him up around 1500. She states that he told her that he was feeling ill, but could not describe his illness. The states that she checked his blood pressure again and it was 160/90. She states that she gave him Tylenol, but denies any relief of symptoms. The patient states that around 1600 he thought his pacemaker was acting up, which has happened before. The reports that on the way to the ED , the patient started to experience a sorethroat and ear pain. The patient states that his symptoms are better at this moment than they were this morning. The patient's reports that he was here in the ED a week ago when they found out he had fluid in his lungs and pneumonia. She states that he was given antibiotics, but admits he recently finished his prescription. The patient's also states that he typically takes Isuprel, but it has been giving him a sharp headache and episodes of dizziness. She reports they went to the doctor yesterday and got his medication dosage cut in half. The patient reports that when he took his medication this morning, he did not experience a sharp headache or dizziness following taking the medication. She reports a history of a pacemaker for the patient, but states that the pacemaker was not correctly sending signals to one side of his heart. She reports that he has a follow up with his vasc tech in two days and a week to put a third lead in. Source of History: patient, spouse/significant other () Onset: this morning Position: other (global) Timing: other (resolving) Modifying Factors (Relieving): tylenol Associated Symptoms: + sorethroat Review of Systems See HPI for pertinent positives & negatives. A total of 10 systems reviewed and were otherwise negative. Past Medical & Surgical Medical Problems: (1) AV block (2) Benign prostatic hyperplasia (3) Carotid disease, bilateral (4) Chest pain (5) CHF exacerbation (6) Clostridium difficile infection (7) Coronary artery disease (8) Diabetes mellitus, type II (9) DVT (deep venous thrombosis) (10) Dyslipidemia (11) Elevated blood pressure reading (12) GERD (gastroesophageal reflux disease) (13) History of colorectal cancer (14) History of CVA (cerebrovascular accident) (15) History of skin cancer (16) Hypertension (17) Left bundle branch block (18) Malignant neoplasm of rectum (19) Peripheral vascular disease (20) Right humeral fracture (21) Seizure (22) Seizure disorder (23) Sick sinus syndrome Surgical Problems: (1) H/O ileostomy (2) History of resection of rectum (3) S/P colon resection (4) Status post cardiac pacemaker procedure (5) Status post cholecystectomy (6) Status post coronary artery bypass grafting (7) Status post shoulder surgery (8) Status post tonsillectomy Family History Cad, cabg BROTHER Cancer aunt,uncle Diabetes mellitus MOTHER Gallbladder disease Hypertension MOTHER BROTHER Kidney disease Multiple myeloma FATHER Social History Smoking Status: Never Smoker Alcohol Use: none Drug Use: none Marital Status: Housing Status: lives with family Occupation Status: retired, other Current/Historical Medications Scheduled Aspirin (Aspirin Ec), 81 MG PO QPM Carvedilol (Carvedilol), 25 MG PO BID Clopidogrel Bisulfate (Clopidogrel), 75 MG PO QPM Coenzyme Q10 (Ubidecarenone) (Coenzyme Q-10), 100 MG PO DAILY Finasteride (Finasteride), 5 MG PO DAILY Furosemide (Lasix), 20 MG PO DAILY Hydralazine HCl (Hydralazine HCl), 50 MG PO TID Isosorbide Dinitrate (Isosorbide Dinitrate), 5 MG PO TID Levetiracetam (Keppra), 500 MG PO BID Losartan Potassium (Cozaar), 100 MG PO DAILY Magnesium Oxide (Mg Supplement (Magnesium Oxide), 400 MG PO DAILY Multiple Vitamins W/ Minerals (Centrum Men), 1 TAB PO DAILY Potassium Chloride (Micro-K Ext Rel), 10 MEQ PO DAILY Sertraline HCl (Sertraline HCl), 50 MG PO DAILY Scheduled PRN Bisacodyl (Bisacodyl), 5 MG PO UD PRN for Constipation Hyoscyamine Sulfate (Hyoscyamine Sulfate), 0.125 MG PO Q4H PRN for Cramping Nitroglycerin (Nitrostat), 0.4 MG SL UD PRN for Chest Pain Allergies Coded Allergies: Iodine (Verified Allergy, Severe, airway edema, 05/09/17) Tramadol (Verified Allergy, Severe, seizures, 05/09/17) Oxycodone (Verified Allergy, Unknown, "itchiness all over", 05/09/17) Felodipine (Verified Adverse Reaction, Mild, cough, 05/09/17) ANCELMO Inhibitors (Verified Adverse Reaction, Unknown, COUGHING, 05/09/17) Codeine (Verified Adverse Reaction, Unknown, hallucinations, depression, ) Physical Exam Vital Signs Date Time Temp Pulse Resp B/P (MAP) Pulse Ox O2 Delivery O2 Flow Rate FiO2 05/09/17 20:43 86 16 137/91 94 Room Air 05/09/17 20:38 86 19 05/09/17 20:33 87 19 05/09/17 20:28 83 10 05/09/17 20:23 84 16 05/09/17 20:18 85 10 05/09/17 20:13 85 19 05/09/17 20:08 88 20 05/09/17 19:48 74 30 05/09/17 19:43 75 29 05/09/17 19:38 73 17 05/09/17 19:33 70 16 05/09/17 19:29 72 05/09/17 18:39 36.7 67 16 155/84 98 Room Air Physical Exam CONSTITUTIONAL/VITAL SIGNS: Reviewed / noted above. GENERAL: Non-toxic in appearance. INTEGUMENTARY: Warm, dry, and [place]. HEAD: Normocephalic. EYES: without scleral icterus or trauma. ENT/OROPHARYNX: clear and moist. LYMPHADENOPATHY/NECK: Is supple without lymphadenopathy or meningismus. RESPIRATORY: Lungs clear and equal. CARDIOVASCULAR: Regular rate and rhythm. GI/ABDOMEN: Soft and nontender. No organomegaly or pulsatile mass. No rebound or guarding. Normal bowel sounds. EXTREMITIES: Warm and well perfused. BACK: No CVA tenderness. NEUROLOGICAL: Intact without focal deficits. PSYCHIATRIC: normal affect. MUSCULOSKELETAL: Normally developed with good muscle tone. Medical Decision & Procedures ER Provider Diagnostic Interpretation: Radiology results as stated below per my review and radiologist interpretation: SINGLE VIEW CHEST CLINICAL HISTORY: Weakness. Change in mental status. FINDINGS: An AP, portable, upright chest radiograph is compared to study dated 04/25/2017 and correlated with chest CT dated 04/06/2015. The examination is degraded by portable technique and patient rotation. A 2-lead cardiac pacemaker is unchanged in position and partially obscures the left mid chest. The patient is status post midline sternotomy. The heart is enlarged and there is atherosclerotic calcification of the thoracic aorta. Pulmonary vascular congestion has resolved from previous. Chronic interstitial thickening with bibasilar scarring versus atelectasis is unchanged. Trace pleural effusions are suggested. Or focal airspace opacities are seen at the left lung base. No pneumothorax is identified. The skeletal structures are osteopenic. Chronic posttraumatic change is noted in the right humerus. Cholecystectomy clips are seen in the right upper quadrant. IMPRESSION: 1. Cardiomegaly and cardiac pacemaker. Pulmonary vascular congestion has resolved from 05/03/2017. 2. Trace pleural effusions are suggested and there are airspace opacities again noted at the left lung base. This could represent atelectasis versus pneumonia. Clinical correlation will be required. Electronically signed by: Fredy Gould M.D. 05/09/2017 7:45 PM Dictated Date/Time: 05/09/2017 7:[address] SCAN OF THE BRAIN WITHOUT IV CONTRAST CLINICAL HISTORY: Change in mental status. Weakness. COMPARISON STUDY: Prior CT scans of the brain, most recently dated 04/27/2017. TECHNIQUE: Unenhanced axial CT scan of the brain is performed from the vertex to the skull base. CT DOSE: 614.27 mGy.cm FINDINGS: Brain parenchyma: There are age-related involutional changes noting moderate patchy subcortical and periventricular microangiopathic change. Chronic lacunar infarcts are identified in the left basal ganglia and the left thalamus. There is Wallerian degeneration within the left aspect of the joel. There is no hemorrhage, mass effect, or evidence of acute territorial ischemia by CT criteria. Ann-white matter is preserved. No extra-axial fluid collection is seen. Ventricles, sulci, cisterns: Prominent secondary to involutional change. Intracranial vasculature: There is atherosclerotic calcification of the cavernous carotid and vertebral arteries. Calvarium: Unremarkable. Sinuses and mastoids: The visualized paranasal sinuses are clear. The mastoid air cells are well pneumatized. Orbits: The bony orbits are grossly intact. There are bilateral ocular lens implants. IMPRESSION: Senescent changes as above with no hemorrhage, mass effect, or evidence of acute territorial ischemia by CT criteria. There has been no significant change from 04/27/2017. Electronically signed by: Fredy Gould M.D. 05/09/2017 8:06 PM Dictated Date/Time: 05/09/2017 8:03 PM Laboratory Results 05/09/17 19:30 Red Blood Count 4.29, Mean Corpuscular Volume 94.9, Mean Corpuscular Hemoglobin 30.3, Mean Corpuscular Hemoglobin Concent 31.9, Mean Platelet Volume 9.7, Neutrophils (%) (Auto) 64.0, Lymphocytes (%) (Auto) 22.2, Monocytes (%) (Auto) 10.0, Eosinophils (%) (Auto) 2.1, Basophils (%) (Auto) 0.2, Neutrophils # (Auto ) 3.31, Lymphocytes # (Auto) 1.15, Monocytes # (Auto) 0.52, Eosinophils # (Auto ) 0.11, Basophils # (Auto) 0.01 05/09/17 19:30 Test 05/09/17 19:30 White Blood Count 5.18 K/uL (4.8-10.8) Red Blood Count 4.29 M/uL (4.7-6.1) Hemoglobin 13.0 g/dL (14.0-18.0) Hematocrit 40.7 % (42-52) Mean Corpuscular Volume 94.9 fL (80-100) Mean Corpuscular Hemoglobin 30.3 pg (25-34) Mean Corpuscular Hemoglobin Concent 31.9 g/dl (32-36) Platelet Count 145 K/uL (130-400) Mean Platelet Volume 9.7 fL (7.4-10.4) Neutrophils (%) (Auto) 64.0 % Lymphocytes (%) (Auto) 22.2 % Monocytes (%) (Auto) 10.0 % Eosinophils (%) (Auto) 2.1 % Basophils (%) (Auto) 0.2 % Neutrophils # (Auto) 3.31 K/uL (1.4-6.5) Lymphocytes # (Auto) 1.15 K/uL (1.2-3.4) Monocytes # (Auto) 0.52 K/uL (0.11-0.59) Eosinophils # (Auto) 0.11 K/uL (0-0.5) Basophils # (Auto) 0.01 K/uL (0-0.2) RDW Standard Deviation 50.9 fL (36.4-46.3) RDW Coefficient of Variation 14.7 % (11.5-14.5) Immature Granulocyte % (Auto) 1.5 % Immature Granulocyte # (Auto) 0.08 K/uL (0.00-0.02) Prothrombin Time 11.6 SECONDS (9.0-12.0) Prothromb Time International Ratio 1.1 (0.9-1.1) Activated Partial Thromboplast Time 25.1 SECONDS (21.0-31.0) Partial Thromboplastin Ratio 1.0 Anion Gap 4.0 mmol/L (3-11) Est Creatinine Clear Calc Drug Dose 42.9 ml/min Estimated GFR () 61.0 Estimated GFR (Non- 52.6 BUN/Creatinine Ratio 14.2 (10-20) Calcium Level 9.0 mg/dl (8.5-10.1) Magnesium Level 2.0 mg/dl (1.8-2.4) Total Bilirubin 0.5 mg/dl (0.2-1) Direct Bilirubin 0.2 mg/dl (0-0.2) Aspartate Amino Transf (AST/SGOT) 25 U/L (15-37) Alanine Aminotransferase (ALT/SGPT) 42 U/L (12-78) Alkaline Phosphatase 113 U/L (45-117) Total Creatine Kinase 24 U/L (39-308) Creatine Kinase MB 0.8 ng/ml (0.5-3.6) Creatine Kinase MB Ratio 3.3 (0-3.0) Troponin I 0.027 ng/ml (0-0.045) Total Protein 6.6 gm/dl (6.4-8.2) Albumin 3.5 gm/dl (3.4-5.0) Lipase 130 U/L (73-393) Thyroid Stimulating Hormone (TSH) 1.310 uIu/ml (0.300-4.500) Laboratory results as stated above per my review. Medications Administered Medications (Trade) Dose Ordered Sig/Nati Route Start Time Stop Time Status Last Admin Dose Admin Sodium Chloride 1,000 ml @ 200 mls/hr Q5H STAT IV 05/09/17 19:02 05/10/17 00:01 05/09/17 19:43 200 MLS/HR ECG Indication: weakness Rate (beats per minute): 66 Rhythm: other (ventricular paced ) Findings: no acute ischemic change, no ectopy ED Course 1855: Previous medical records were reviewed. The patient was evaluated in room C03. A complete history and physical examination was performed. 1901: Sodium Chloride 1000 ml @ 200 mls/hr IV. 2039: On reevaluation, the patient is resting comfortably. I discussed the results and findings with the patient. He verbalized agreement of the treatment plan. He was discharged home. Medical Decision Differential includes acute coronary syndrome, myocardial infarction, CVA, TIA, anemia, infection, pneumonia, UTI, pyelonephritis, poor nutrition, dehydration, electrolyte disturbance,hypoglycemia. Medication Reconciliation: I attest that I have personally reviewed the patient' s current medication list. Patient was found to have a slightly elevated blood pressure due to circumstances. I do not believe that the patient requires hypertension monitoring. This is a 76-year-old male who presents to the ED with a chief complaint of increased tiredness throughout the day today. The patient was a little hard for the to wake up this morning. He took an afternoon nap. The checked his blood pressure twice a day. Once it was 110 systolic and once it was 160 systolic. The patient also has been reporting headaches since being started on Isuprel. His PCP cut this dose in half recently. His headaches or not as bad after this. He reported to his that he just does not feel quite right. His vital signs are stable. His physical exam was unremarkable. His neurologic exam was normal. The patient did report to triage that he has had a cough and a sore throat on his way here today. His EKG shows a ventricular paced rhythm. Chest x-ray reveals a left lung pneumonia versus atelectasis. CT scan of the brain did not show acute process. CBC is unremarkable. The patient was given Levaquin by mouth. He was discharged on Levaquin. They will follow-up with the PCP and vasc tech for recheck. Return for worsening. Impression Primary Impression: LLL pneumonia Scribe Attestation The scribe's documentation has been prepared under my direction and personally reviewed by me in its entirety. I confirm that the note above accurately reflects all work, treatment, procedures, and medical decision making performed by me. Departure Information Dispostion Home / Self-Care Prescriptions Levofloxacin (Levaquin) 500 Mg Tab 500 MG PO DAILY for 7 Days, #7 TAB Prov: Christopher Cramer D.O. 05/09/17 Referrals Xavi Moreno M.D.([facility]) (PCP) Patient Instructions My [facility] Additional Instructions Levaquin as prescribed. Follow-up with your doctor for further care and evaluation in 1-2 days. Return to the emergency department for worsening or new symptoms or any concerns. You have been examined and treated today on an emergency basis only. This is not a substitute for, or an effort to provide, complete comprehensive medical care. It is impossible to recognize and treat all injuries or illnesses in a single emergency department visit. It is therefore important that you follow up closely with your doctor. Call as soon as possible for an appointment.
[2017-05-09 21:04] LABS: URINE APPEARANCE CLEAR (CLEAR); URINE BILIRUBIN NEG (NEG); URINE COLOR YELLOW; URINE EPITHELIAL CELL AUTO 0-5 /lpf (0-5); URINE NITRITE NEG (NEG); URINE SPECIFIC GRAVITY 1.016 (1.000-1.030); UROBILINOGEN NEG (NEG); ZZUR CULT IF INDIC CLEAN CATCH NO
[2017-05-09 21:08] LABS: MANUAL MICROSCOPIC REQUIRED? NO; REVIEW REQ? NO
[2017-05-09 21:46] VITALS: BP 137/91; PULSE 86; TEMP 36.7; O2SAT 94
[2017-06-27] MEDS ORDERED: POTA10CA28 PO (12:22)
[2017-06-27] MEDS ORDERED: POTA10TA PO (12:22)
[2017-06-27] MEDS ORDERED: OXYC1TAB3 PO (12:22)
[2017-06-27] MEDS ORDERED: NYSCR30 EXT (12:22)
== END 2017-05-09 21:48 | disposition home or self-care (01) ==
LOC: C.EDB 18:37 → C.EDC 21:48
DX: J18.9 Pneumonia, unspecified organism (principal); N40.0 Benign prostatic hyperplasia without lower urinary tract symptoms; I50.9 Heart failure, unspecified; I25.10 Atherosclerotic heart disease of native coronary artery without angina pectoris; E11.9 Type 2 diabetes mellitus without complications; E78.5 Hyperlipidemia, unspecified; K21.9 Gastro-esophageal reflux disease without esophagitis; I10 Essential (primary) hypertension; C20 Malignant neoplasm of rectum; I73.9 Peripheral vascular disease, unspecified; R56.9 Unspecified convulsions; Z83.3 Family history of diabetes mellitus; Z82.49 Family history of ischemic heart disease and other diseases of the circulatory system; Z79.82 Long term (current) use of aspirin

== ENCOUNTER 2017-05-27 19:08 | Emergency (ER) | payer OTHER ==
[~2017-05-27] VITALS: Ht 170.2 cm; Wt 74.1 kg
[~2017-05-27 19:08] MED LIST changes: -DXY100 PO; -Nitroglycerin PR
[2017-05-27 19:21] VITALS: TEMP 36.7; Ht 170.2 cm; Wt 74.1 kg
[2017-05-27] MEDS ORDERED: ACETAMINOPHEN 500 MG TAB PO STA (19:42)
[2017-05-27 20:10] LABS: BASO % 0.2 %; BASO ABS # 0.01 K/uL (0-0.2); COMPLETE YES; EOS % 2.5 %; HEMATOCRIT 39.4 % (42-52); IG% 0.8 %; LYMPH % 21.5 %; LYMPH ABS # 1.05 K/uL (1.2-3.4); MEAN CORPUSCULAR HEMOGLOBIN 29.8 pg (25-34); MEAN CORPUSCULAR HGB CONC 31.7 g/dl (32-36); MEAN PLATELET VOLUME 9.4 fL (7.4-10.4); MONO % 8.2 %; NEUT % 66.8 %; PLATELET COUNT 134 K/uL (130-400); RED BLOOD COUNT 4.19 M/uL (4.7-6.1); WHITE BLOOD COUNT 4.89 K/uL (4.8-10.8)
[2017-05-27 20:26] LABS: BUN/CREATININE RATIO 17.3 (10-20); CALCIUM 8.8 mg/dl (8.5-10.1); CREATININE 1.4 mg/dl (0.60-1.40); POTASSIUM 4.1 mmol/L (3.5-5.1)
--- NOTE | 2017-05-27 20:50 | DIAGNOSTIC IMAGING REPORT ---
RIGHT RIBS UNILATERAL WITH PA CHEST CLINICAL HISTORY: Right lower rib pain. COMPARISON STUDY: Chest radiograph May 09, 2017. FINDINGS: There is no pneumothorax or pleural effusion. No acute right rib fracture is identified. There is a dual lead left subclavian pacemaker, mediastinal surgical clips and median sternotomy wires. Linear left lower lung opacity suggest atelectasis. There is no evidence of pulmonary edema. There is an old right humeral neck fracture. IMPRESSION: No pneumothorax. No acute right rib fractures identified. Electronically signed by: Cory Waller M.D. 05/27/2017 8:48 PM Dictated Date/Time: 05/27/2017 8:44 PM
[2017-05-27] MEDS ORDERED: FRS/40 PO ×2 (21:09)
[2017-05-27] MEDS ORDERED: CARV25TA2 PO (21:09)
[2017-05-27] MEDS ORDERED: ACET1TAB84 PO (21:09)
[2017-05-27] MEDS ORDERED: SODIUM CHLORIDE 0.9% 500ML 500 ML IV STA (21:17)
--- NOTE | 2017-05-27 21:37 | EMERGENCY ROOM VISIT NOTE ---
ED Visit Note First contact with patient: 21:17 Patient was seen by our PA/RECREATION PROGRAM COORDINATOR. I was involved in the patient's care and did evaluate the patient myself. I was involved in the care throughout the ER stay. The patient presents with right lower rib pain. The pain is pleuritic. He has a history of DVT. He is not currently anticoagulated. He has had pneumonia recently and thinks he may have aggravated his ribs with coughing. Rib films today do not show evidence for fracture. A chest CT is being done for PE, if this result is unremarkable, the patient will be discharged home with conservative measures. If the CT scan shows evidence for PE, admission/observation will be required.
[2017-05-27] MEDS ORDERED: METHYLPREDNISOLONE 125 MG VIAL IV STA (21:53)
[2017-05-27] MEDS ORDERED: DiphenhydrAMINE HCL 50 MG/ML VIAL IV STA (21:53)
[2017-05-27] MEDS ORDERED: OPTIRAY 320 IV PRN (22:00)
--- NOTE | 2017-05-27 22:57 | DIAGNOSTIC IMAGING REPORT ---
CT ANGIOGRAPHY OF THE CHEST, PULMONARY EMBOLUS PROTOCOL CLINICAL HISTORY: Chest pain. Right sided rib pain. COMPARISON STUDY: Chest radiograph May 09, [address] April 06, 2015. TECHNIQUE: The patient was premedicated for an IV dye allergy. Following IV administration of 99 mL of [id number]-[id number], helical axial images of the chest were obtained utilizing the pulmonary embolus protocol. Maximal intensity projections and sagittal and coronal reformats were viewed on an independent 3D workstation. IV contrast was administered without complication. A dose lowering technique was utilized adhering to the principles of ALARA. CT DOSE: 393.62 mGy.cm FINDINGS: No pulmonary emboli are identified although the segmental and subsegmental pulmonary arteries within the lower lobes are suboptimally assessed due to respiratory motion. There are median sternotomy wires. Moderate cardiac megaly is noted. Small left and trace right pleural effusions are present. There is no pneumothorax. Left lower lobe and lingular volume loss with airspace opacity suggests atelectasis. Groundglass opacities within the right lung favor atelectasis. Central airways are patent. There is mild bronchial wall thickening. Interlobular septal thickening suggests mild pulmonary edema. There are several old thoracic spine compression fractures. There are a few old right rib fractures. No acute right rib fractures are identified within visualized portions of the right ribs. Gynecomastia is noted. There is a dual lead left subclavian pacemaker. IMPRESSION: 1. No pulmonary emboli identified within limitations described above. 2. Small left and trace right pleural effusions. Left lower lobe and lingular opacity with volume loss favors atelectasis. 3. Mild pulmonary edema. 4. Moderate cardiomegaly. Electronically signed by: Cory Waller M.D. 05/27/2017 10:55 PM Dictated Date/Time: 05/27/2017 10:44 PM
[2017-05-27 23:30] VITALS: BP 144/82; PULSE 72; O2SAT 97
--- NOTE | 2017-06-05 19:03 | EMERGENCY ROOM VISIT NOTE ---
History First contact with patient: 19:25 Chief Complaint: RIB PAIN Stated Complaint: LOWER RT RIB PAIN,HEADACHE,PNX 05-03 History of Present Illness The patient is a 77 year old white male who presents to the Emergency Room with complaints of focal right lower rib pain that has been present for the last few days. He denies any trauma. Pain is worse with coughing or sneezing. He denies any shortness of breath. He was recently diagnosed with a left lower lobe pneumonia on May 09. He was on Levaquin for several days. He was reevaluated by his PCP and a new chest x-ray showed no resolution. He was then reportedly placed on Zithromax. He finished his last dose yesterday. He denies any fevers or chills. No nausea, vomiting, or diarrhea. No other cold symptoms. He points to the lateral ribs as his area of discomfort. He denies any chest pain or back pain. No abdominal pain or groin pain. He denies any hematuria. No difficulty with urination or bowel movements. His accompanies him today. He did not take any Tylenol today because he did not want to mask his symptoms. He has an appointment to see his PCP on Monday. Review of Systems REVIEW OF SYSTEM: HEENT: No dizziness, visual problems, hearing loss, or tinnitus. There is no difficulty swallowing and no oral lesions are present. LYMPH: No adenopathy. PULMONARY: No shortness of breath or hemoptysis. CARDIOVASCULAR: No chest pain, shortness of breath or peripheral edema. GASTROINTESTINAL: No diarrhea, constipation, nausea, vomiting, or abdominal pain. GENITOURINARY: No dysuria, frequency, urgency or nocturia. NEUROLOGIC: No weakness, muscle tenderness. No history of chronic headaches. Positive history of stroke as well as seizure activity MUSCULOSKELETAL: No history of joint tenderness/swelling. Positive history of arthritis and arthralgias. SKIN: No rashes or lesions. PSYCHIATRIC: No history of depression or mental illness. ENDOCRINE: No history of diabetes, thyroid disorders, or abnormal hair growth. Past Medical/Surgical History Medical Problems: (1) AV block (2) Benign prostatic hyperplasia (3) Carotid disease, bilateral (4) Chest pain (5) CHF exacerbation (6) Clostridium difficile infection (7) Coronary artery disease (8) Diabetes mellitus, type II (9) DVT (deep venous thrombosis) (10) Dyslipidemia (11) Elevated blood pressure reading (12) GERD (gastroesophageal reflux disease) (13) History of colorectal cancer (14) History of CVA (cerebrovascular accident) (15) History of skin cancer (16) Hypertension (17) Left bundle branch block (18) Malignant neoplasm of rectum (19) Peripheral vascular disease (20) Right humeral fracture (21) Seizure (22) Seizure disorder (23) Sick sinus syndrome Surgical Problems: (1) H/O ileostomy (2) History of resection of rectum (3) S/P colon resection (4) Status post cardiac pacemaker procedure (5) Status post cholecystectomy (6) Status post coronary artery bypass grafting (7) Status post shoulder surgery (8) Status post tonsillectomy Family History Cad, cabg BROTHER Cancer aunt,uncle Diabetes mellitus MOTHER Gallbladder disease Hypertension MOTHER BROTHER Kidney disease Multiple myeloma FATHER Social History Smoking Status: Never Smoker Smokeless Tobacco Use: No Alcohol Use: none Drug Use: none Marital Status: Housing Status: lives with family Occupation Status: retired, other Current/Historical Medications Scheduled Aspirin (Aspirin Ec), 81 MG PO QPM Carvedilol (Coreg), 25 MG PO BID Clopidogrel Bisulfate (Clopidogrel), 75 MG PO HS Coenzyme Q10 (Ubidecarenone) (Coenzyme Q-10), 100 MG PO DAILY Finasteride (Finasteride), 5 MG PO DAILY Furosemide (Lasix), 40 MG PO 2XWK Furosemide (Lasix), 20 MG PO 5XWK Hydralazine HCl (Hydralazine HCl), 50 MG PO TID Levetiracetam (Keppra), 500 MG PO BID Losartan Potassium (Cozaar), 100 MG PO DAILY Magnesium Oxide (Mg Supplement (Magnesium Oxide), 400 MG PO DAILY Multiple Vitamins W/ Minerals (Centrum Men), 1 TAB PO DAILY Sertraline HCl (Sertraline HCl), 50 MG PO DAILY Scheduled PRN Acetaminophen (Tylenol Arthritis Ext Rel), 1,300 MG PO Q8H PRN for Pain Bisacodyl (Bisacodyl), 5 MG PO UD PRN for Constipation Hyoscyamine Sulfate (Hyoscyamine Sulfate), 0.125 MG PO Q4H PRN for Cramping Nitroglycerin (Nitrostat), 0.4 MG SL UD PRN for Chest Pain Allergies Coded Allergies: Iodine (Verified Allergy, Severe, airway edema, 05/09/17) Tramadol (Verified Allergy, Severe, seizures, 05/09/17) Oxycodone (Verified Allergy, Unknown, "itchiness all over", 05/09/17) Felodipine (Verified Adverse Reaction, Mild, cough, 05/09/17) ANCELMO Inhibitors (Verified Adverse Reaction, Unknown, COUGHING, 05/09/17) Codeine (Verified Adverse Reaction, Unknown, hallucinations, depression, ) Physical Exam Vital Signs Date Time Temp Pulse Resp B/P (MAP) Pulse Ox O2 Delivery O2 Flow Rate FiO2 05/27/17 23:30 72 18 144/82 97 Room Air 05/27/17 20:50 73 16 153/89 97 Room Air 05/27/17 19:21 36.7 67 18 154/78 98 Room Air Physical Exam Gen.: Frail, elderly white male, in no acute distress. Laying on a bed. Alert and oriented. Skin:Warm and dry with fair turgor. No rashes or lesions. No ecchymosis or erythema. The patient is not diaphoretic. No abrasions. HEENT: Normocephalic atraumatic. Eyes PERRLA, EOMI. No conjunctiva or scleral injection. Oropharynx without erythema or exudate. Uvula midline, oral mucosa moist. No lesions present. Heart: Heart RRR. No GR. 2/6 systolic ejection murmur noted. Peripheral pulses are 2+. Lungs: Lungs are clear to auscultation. No crackles rhonchi or wheezing. Good air movement. The patient is able to take a deep breath. Abdomen: Abdomen was inspected, auscultated, and palpated. Bowel sounds present x 4. Soft, nontender to palpation. No hepato-splenomegaly. No masses noted. No rebound. No pain over McBurney's point. No CVA tenderness. Musculoskeletal: Gross motor function of the upper and lower extremities is intact and unremarkable. No pain with palpation over the sternum, anterior chest wall, posterior ribs, or spine. He has focal pain with palpation over the 11th and 12th ribs laterally on the mid axillary line. No crepitus. Neurologic: Gross sensation is intact across the chest wall by soft touch. Medical Decision & Procedures ER Provider Diagnostic Interpretation: Radiographic imaging obtained today of the chest and right ribs was read by radiology as negative for pneumothorax or rib fracture. CT scan imaging of the chest was obtained to rule out PE. This was read by radiology as negative for PE. He does have mild evidence of atelectasis and pulmonary. Laboratory Results 05/27/17 19:58 Red Blood Count 4.19, Mean Corpuscular Volume 94.0, Mean Corpuscular Hemoglobin 29.8, Mean Corpuscular Hemoglobin Concent 31.7, Mean Platelet Volume 9.4, Neutrophils (%) (Auto) 66.8, Lymphocytes (%) (Auto) 21.5, Monocytes (%) (Auto) 8.2, Eosinophils (%) (Auto) 2.5, Basophils (%) (Auto) 0.2, Neutrophils # (Auto) 3.27, Lymphocytes # (Auto) 1.05, Monocytes # (Auto) 0.40, Eosinophils # (Auto) 0.12, Basophils # (Auto) 0.01 05/27/17 19:58 Test 05/27/17 19:58 White Blood Count 4.89 K/uL (4.8-10.8) Red Blood Count 4.19 M/uL (4.7-6.1) Hemoglobin 12.5 g/dL (14.0-18.0) Hematocrit 39.4 % (42-52) Mean Corpuscular Volume 94.0 fL (80-100) Mean Corpuscular Hemoglobin 29.8 pg (25-34) Mean Corpuscular Hemoglobin Concent 31.7 g/dl (32-36) Platelet Count 134 K/uL (130-400) Mean Platelet Volume 9.4 fL (7.4-10.4) Neutrophils (%) (Auto) 66.8 % Lymphocytes (%) (Auto) 21.5 % Monocytes (%) (Auto) 8.2 % Eosinophils (%) (Auto) 2.5 % Basophils (%) (Auto) 0.2 % Neutrophils # (Auto) 3.27 K/uL (1.4-6.5) Lymphocytes # (Auto) 1.05 K/uL (1.2-3.4) Monocytes # (Auto) 0.40 K/uL (0.11-0.59) Eosinophils # (Auto) 0.12 K/uL (0-0.5) Basophils # (Auto) 0.01 K/uL (0-0.2) RDW Standard Deviation 47.5 fL (36.4-46.3) RDW Coefficient of Variation 13.8 % (11.5-14.5) Immature Granulocyte % (Auto) 0.8 % Immature Granulocyte # (Auto) 0.04 K/uL (0.00-0.02) Anion Gap 4.0 mmol/L (3-11) Est Creatinine Clear Calc Drug Dose 40.7 ml/min Estimated GFR () 55.4 Estimated GFR (Non- 47.8 BUN/Creatinine Ratio 17.3 (10-20) Calcium Level 8.8 mg/dl (8.5-10.1) CBC and PRP obtained today show a very mildly low H&H. Otherwise unremarkable. Medications Administered Medications (Trade) Dose Ordered Sig/Nati Route Start Time Stop Time Status Last Admin Dose Admin Acetaminophen (Tylenol Tab) 1,000 mg NOW STAT PO 05/27/17 19:42 05/27/17 19:45 DC 05/27/17 19:52 1,000 MG Sodium Chloride 500 ml @ 999 mls/hr Q31M STAT IV 05/27/17 21:17 05/27/17 21:47 DC 05/27/17 21:40 999 MLS/HR Diphenhydramine HCl (Benadryl Inj) 25 mg NOW STAT IV 05/27/17 21:53 05/27/17 21:54 DC 05/27/17 21:53 25 MG Methylprednisolone Sodium Succinate (Solu-Medrol IV) 80 mg NOW STAT IV 05/27/17 21:53 05/27/17 21:54 DC 05/27/17 21:53 80 MG Tylenol 1 g by mouth, 1 L normal sterile saline IV bolus, premedication for CT using Benadryl 25 mg IV, Solu-Medrol 80 mg IV ED Course Patient was educated regarding today's findings. Conservative care measures were discussed. IV was established. Labs were obtained. X-ray imaging of his chest was obtained. This was unremarkable. Due to his history of DVT and not being on anticoagulants, CT scan of the chest was obtained after pretreating with Benadryl and Solu-Medrol. Patient did receive a liter of fluid as well. I did elect to avoid d-dimer given his age. CT scan was negative for PE. He does have mild atelectasis and pulmonary edema. No evidence for pneumonia. No evidence for fracture or pneumothorax. He was given a dose of Tylenol in the ED for pain control. Follow-up with his PCP on Monday as scheduled. Use a pillow to the chest wall for any sneezing or coughing to give counterpressure and minimize his pain. Return to the ED for any acute changes or worsening of symptoms. He does not require any further antibiotics at this point. Patient was seen in conjunction with Dr. Jimenez, who also evaluated the patient and concurred with today's diagnosis and treatment plan. Medical Decision Possibility of pneumonia, fractured rib, pneumothorax, PE, pulmonary edema, atelectasis, muscle strain, shingles, and diaphragm irritation were considered. Impression Primary Impression: Rib pain on right side Departure Information Referrals Xavi Moreno M.D.([facility]) (PCP) Patient Instructions My [facility]
[2017-06-27] MEDS ORDERED: NYSCR30 EXT (12:22)
[2017-06-27] MEDS ORDERED: POTA10CA28 PO (12:22)
[2017-06-27] MEDS ORDERED: OXYC1TAB3 PO (12:22)
[2017-06-27] MEDS ORDERED: POTA10TA PO (12:22)
== END 2017-05-27 23:30 | disposition home or self-care (01) ==
LOC: C.EDB 19:09
DX: R07.81 Pleurodynia (principal); J18.9 Pneumonia, unspecified organism; E11.9 Type 2 diabetes mellitus without complications; I25.10 Atherosclerotic heart disease of native coronary artery without angina pectoris; E78.5 Hyperlipidemia, unspecified; G40.909 Epilepsy, unspecified, not intractable, without status epilepticus; K21.9 Gastro-esophageal reflux disease without esophagitis; I10 Essential (primary) hypertension; Z79.82 Long term (current) use of aspirin; Z79.899 Other long term (current) drug therapy; Z85.048 Personal history of other malignant neoplasm of rectum, rectosigmoid junction, and anus; Z85.828 Personal history of other malignant neoplasm of skin; Z86.19 Personal history of other infectious and parasitic diseases; Z86.73 Personal history of transient ischemic attack (TIA), and cerebral infarction without residual deficits; Z95.0 Presence of cardiac pacemaker; Z95.1 Presence of aortocoronary bypass graft; Z80.8 Family history of malignant neoplasm of other organs or systems; Z82.49 Family history of ischemic heart disease and other diseases of the circulatory system; Z83.3 Family history of diabetes mellitus; Z83.79 Family history of other diseases of the digestive system; Z84.1 Family history of disorders of kidney and ureter

== ENCOUNTER 2017-07-04 08:44 | Inpatient (IN) | payer OTHER ==
[~2017-07-04] VITALS: Ht 167.6 cm; Wt 76.0 kg
[~2017-07-04 08:44] MED LIST changes: +ACET1TAB84 PO; -BISA1TAB15 PO; +CARV25TA2 PO; -CRG125 PO; +FRS/40 PO; -FURO40TA3 PO; -ISR10 PO; +NYSCR30 EXT; +OXYC1TAB3 PO; +POTA10TA PO
[2017-07-04 14:36] VITALS: BP 132/74; PULSE 60; TEMP 36.5; O2SAT 97; Ht 167.6 cm; Wt 76.0 kg
--- NOTE | 2017-07-04 15:16 | Progress Note ---
Progress Note Date of Service Jul 04, 2017. Progress Note Pt scheduled for EP procedure with anesthesia. Pt with multiple comorbidities including h/o MS x 2, ischemic cardiomyopathy, EF:15-20%, recent hospitalization for pneumonia and CHF. Risks/benefits and anesthesia plan explained. All questions answered. Consent was obtained.
[2017-07-04 16:00] VITALS: O2SAT 97
[2017-07-04] MEDS ORDERED: OXYCODONE HCL IR 5 MG TAB (IMMEDIATE RELEASE) PO PRN (16:30)
[2017-07-04] MEDS ORDERED: HYOSCYAMINE SULFATE 0.125 MG SL TAB PO PRN (16:30)
[2017-07-04] MEDS ORDERED: ACETAMINOPHEN 325 MG TAB PO PRN (16:30)
[2017-07-04] MEDS ORDERED: NITROGLYCERIN 0.4 MG SL PER TAB CHARGE SL PRN (16:30)
[2017-07-04 17:04] LABS: HEMATOCRIT 40.3 % (42-52); MEAN CELL VOLUME 94.2 fL (80-100); MEAN CORPUSCULAR HEMOGLOBIN 30.1 pg (25-34); MEAN PLATELET VOLUME 9.9 fL (7.4-10.4); PLATELET COUNT 140 K/uL (130-400); RED BLOOD COUNT 4.28 M/uL (4.7-6.1); WHITE BLOOD COUNT 5.08 K/uL (4.8-10.8)
[2017-07-04 17:11] LABS: INR 1.1 (0.9-1.1); PROTHROMBIN TIME (PATIENT) 11.5 SECONDS (9.0-12.0)
[2017-07-04 17:33] LABS: BUN/CREATININE RATIO 16.4 (10-20); CALCIUM 8.9 mg/dl (8.5-10.1); CREATININE 1.2 mg/dl (0.60-1.40)
[2017-07-04 20:19] VITALS: BP 146/82; PULSE 69; TEMP 36.9; O2SAT 95
[2017-07-04] MEDS: CLOPIDOGREL BISULFATE 75 MG TAB PO SCH (21:05)
[2017-07-04] MEDS: ASPIRIN 81 MG ECTAB PO SCH (21:06)
[2017-07-04] MEDS: CARVEDILOL 25 MG TAB PO SCH (21:06)
[2017-07-04] MEDS: LEVETIRACETAM 500 MG TAB PO SCH (21:07)
[2017-07-04] MEDS: HEPARIN SOD 5000 UNIT/0.5 ML CARP SQ SCH (21:08)
[2017-07-05] VITALS (12 sets, daily range): BP systolic 92–160; BP diastolic 57–84; PULSE 59–80; TEMP 36.4–36.9; O2SAT 94–97
[2017-07-05] MEDS: SODIUM CHLORIDE 0.9% 1000ML 1,000 ML IV SCH ×2 (01:56→12:53)
--- NOTE | 2017-07-05 08:35 | History & Physical Bridge Note ---
H&P Re-Evaluation Bridge Note: I have examined the patient, reviewed the History & Physical and in the interval since the performance of the History & Physical I have noted the following changes of clinical significance: No changes noted; pt for upgrade to biv ppm
--- NOTE | 2017-07-05 10:54 | [facility] Post Operative Brief Note ---
Immediate Operative Summary Operative Date Jul 05, 2017. Pre-Operative Diagnosis icm, chb, chronic systolic HF NYHA class III Post-Operative Diagnosis same Procedure(s) Performed upgrade to a biventricular permanent rate responsive pacemaker with peripheral venogram (LV pacing lead insertion) Surgeon lexi Poe Adult Nurse Practitioner Surgeon(s) None Estimated Blood Loss 600cc Findings see official report Fluids (cc crystalloids) 1200 Specimens none Drains none Anesthesia 4mg versed, 100mcg fentanyl, 750mg propofol Complication(s) None Disposition PCU
--- NOTE | 2017-07-05 11:39 | Discharge Instructions ---
Discharge Instructions Date of Service Jul 05, 2017. Admission Reason for Admission: Heart Failure, Sob Discharge Discharge Diagnosis / Problem: ICM Discharge Goals Goal(s): Improve function Activity Recommendations Activity Limitations: as noted below (do not lift the left elbow over the left shoulder for 1 month; do not lift more than 10 pounds with the left arm for 2 weeks) Lifting Limitations: no more than 10 pounds Shower/Bathe: tomorrow Driving or Machine Use: resume 1 day after discharge . Instructions / Follow-Up Instructions / Follow-Up ACTIVITY RECOMMENDATIONS: * Do not raise affected arm over head for 4 weeks. SPECIAL CARE INSTRUCTIONS: * If bleeding occurs, apply direct pressure to area for 5 minutes. * Call your doctor if you have severe pain, fever, drainage or bleeding at site. * Keep dry for 48 hours. * Keep any scheduled doctor's appointment. * Implant Card - hand held device with website information given. SKIN IRRITATION: * You may experience some redness and/or swelling in the area where radiation was administered. If any skin irritation occurs, please contact your family physician. FOLLOW UP VISIT: Keep any scheduled doctor appointments. Current Hospital Diet Patient's current hospital diet: AHA Diet (Heart Healthy) Discharge Diet Recommended Diet: AHA Diet (Heart Healthy), Low Sodium Diet (2gm Na) Procedures Procedures Performed: upgrade to a biventricular permanent rate responsive pacemaker with peripheral venogram (LV pacing lead insertion) Pending Studies Studies pending at discharge: no Laboratory Results Hemoglobin A1c Test 05/04/17 05:23 Range/Units Estimated Average Glucose 126 mg/dl Hemoglobin A1c 6.0 H 4.5-5.6 % Medical Emergencies . Who to Call and When: Medical Emergencies: If at any time you feel your situation is an emergency, please call 911 immediately. . Non-Emergent Contact Non-Emergency issues call your: Network Support Administrator . . "Provider Documentation" section prepared by Vernell Poe. . VTE Core Measure Inpt VTE Proph given/why not?: Ollie Hill
--- NOTE | 2017-07-05 11:44 | Discharge Summary ---
Discharge Summary Date of Service Jul 05, 2017. Discharge Summary Admission Date: Jul 04, 2017 at 13:24 Discharge Date: Jul 06, 2017 Discharge Disposition: Home Principal Diagnosis: ICM s/p upgrade to BiVentricular permanent pacemaker Secondary Diagnoses/Problems: CHB CAD h/o CABG Chronic systolic HF, NYHA Class III HTN HLD H/o Colon cancer Procedures: upgrade to biventricular permanent pacemaker under fluoroscopic guidance with peripheral venogram Medication Reconciliation Continued Medications: Acetaminophen (Tylenol Arthritis Ext Rel) 650 Mg Cplt 650 MG PO Q8H PRN for Pain, CAP Aspirin (Aspirin Ec) 81 Mg Tab 81 MG PO QPM Carvedilol (Coreg) 25 Mg Tab 25 MG PO BID, TAB Clopidogrel Bisulfate (Clopidogrel) 75 Mg Tab 75 MG PO HS Coenzyme Q10 (Ubidecarenone) (Coenzyme Q-10) 100 Mg Cap 2 TABS PO BID Finasteride (Finasteride) 5 Mg Tab 5 MG PO QAM Furosemide (Lasix) 40 Mg Tab 40 MG PO 3XWK, TAB monday and , MONDAY Furosemide (Lasix) 40 Mg Tab 20 MG PO 4XWK, TAB MONDAY, MONDAY, MONDAY AND MONDAY Hydralazine HCl (Hydralazine HCl) 50 Mg Tab 50 MG PO TID for 30 Days, #90 TAB Hyoscyamine Sulfate (Hyoscyamine Sulfate) 0.125 Mg Tab 0.125 MG PO Q4H PRN for Cramping Levetiracetam (Keppra) 500 Mg Tab 500 MG PO BID, TAB Losartan Potassium (Cozaar) 100 Mg Tab 100 MG PO QAM Magnesium Oxide (Mg Supplement (Magnesium Oxide) 400 Mg Tab 400 MG PO QDL Multiple Vitamins W/ Minerals (Centrum Men) 1 Tab Tab 1 TAB PO QAM Nitroglycerin (Nitrostat) 0.4 Mg Tab 0.4 MG SL UD PRN for Chest Pain Nystatin (Nystatin Cream) 90 Appln/30 Gm Cr 0 EXT DAILY PRN for RASH, #15 GM APPLY TO AFFECTED AREA BID Oxycodone Immediate Rel Tab (Roxicodone Ir) 5 Mg Tab 1 TAB PO DAILY PRN for Pain for 30 Days, #30 TAB Potassium Chloride (Micro-K Ext Rel) 10 Meq Capcr 10 MEQ PO 4XWK, CAP MONDAY, MONDAY, MONDAY AND MONDAY Potassium Chloride (K-Tabs) 10 Meq Tab 20 MEQ PO 3XWK Sertraline HCl (Sertraline HCl) 50 Mg Tab 50 MG PO QDL Admission Information Physical Exam (per Admitting): aaox3, NAD Supple, No JVD Nrl S1/S2, +systolic murmur CTA B/L No w/r/r soft NT/ND No Edema b/l LE No focal deficits Skin intact Hospital Course Pt admitted day before procedure to optimize him from heart failure prespective before the procedure. Then on hospital day 2 he underwent elective upgrade to BiVentricular permanent pacemaker due to ICM, CHB and chronic systolic HF, NYHA Class III without any complications. Pt was monitored overnight; his H/H was monitored due to blood loss from the procedure and it remained stable. He was discharged home following day after the procedure. Total time spent on discharge = 30minutes This includes examination of the patient, discharge planning, medication reconciliation, and communication with other providers. Discharge Instructions ACTIVITY RECOMMENDATIONS: * Do not raise affected arm over head for 4 weeks. SPECIAL CARE INSTRUCTIONS: * If bleeding occurs, apply direct pressure to area for 5 minutes. * Call your doctor if you have severe pain, fever, drainage or bleeding at site. * Keep dry48 hours. * Keep any scheduled doctor's appointment. * Implant Card - hand held device with website information given. SKIN IRRITATION: * You may experience some redness and/or swelling in the area where radiation was administered. If any skin irritation occurs, please contact your family physician. FOLLOW UP VISIT: Keep any scheduled doctor appointments.
[2017-07-05] MEDS: LOSARTAN POTASSIUM 50 MG TAB PO SCH (12:42)
[2017-07-05] MEDS: SERTRALINE HCL 50 MG TAB PO SCH (12:42)
[2017-07-05] MEDS: LEVETIRACETAM 500 MG TAB PO SCH ×2 (12:42→21:17)
[2017-07-05] MEDS: HEPARIN SOD 5000 UNIT/0.5 ML CARP SQ SCH ×2 (12:43→21:27)
[2017-07-05] MEDS: FINASTERIDE 5 MG TAB PO SCH (12:44)
[2017-07-05] MEDS: CARVEDILOL 25 MG TAB PO SCH ×2 (12:44→21:16)
[2017-07-05] MEDS ORDERED: OXYCODONE/ACETAMINOPHEN 5-325 TAB PO PRN (17:00)
[2017-07-05] MEDS ORDERED: NURSING VERBAL MED ORDER ONE (17:00)
[2017-07-05 17:14] LABS: HEMATOCRIT 35.7 % (42-52); MEAN CELL VOLUME 92.5 fL (80-100); MEAN CORPUSCULAR HEMOGLOBIN 30.6 pg (25-34); MEAN CORPUSCULAR HGB CONC 33.1 g/dl (32-36); MEAN PLATELET VOLUME 9.4 fL (7.4-10.4); PLATELET COUNT 134 K/uL (130-400); RED BLOOD COUNT 3.86 M/uL (4.7-6.1); WHITE BLOOD COUNT 7.99 K/uL (4.8-10.8)
[2017-07-05] MEDS: ASPIRIN 81 MG ECTAB PO SCH (21:17)
[2017-07-05] MEDS: CLOPIDOGREL BISULFATE 75 MG TAB PO SCH (21:27)
--- NOTE | 2017-07-05 23:50 | OPERATIVE REPORT ---
DATE OF OPERATION: 07/05/2017 PREOPERATIVE DIAGNOSES: Ischemic cardiomyopathy, complete heart block with 100% right ventricular pacing, and chronic systolic congestive heart failure, [place] Heart Association class 3. POSTOPERATIVE DIAGNOSES: Same. PROCEDURE: Upgrade to a biventricular permanent pacemaker, rate responsive, under fluoroscopic guidance along with peripheral venogram (LV pacing lead insertion). SURGEON: Dr. Vernell Poe. TEMPORARY RECEPTIONIST: None. ANESTHESIA: Monitored anesthetic care administered via anesthesiology, a total of 4 mg of Versed, 100 mcg of fentanyl, 750 mg of propofol. Start time 08:05, end time 10:41. IV FLUIDS: 1200 mL BLOOD LOSS: 600 mL ANTIBIOTICS: 2 grams of Ancef. PROPHYLACTIC IV DYE ALLERGY TREATMENT: 50 mg of Benadryl. 50 mg of Zantac, 125 mg of Solu-Medrol. COMPLICATIONS: None. CONDITION: Stable. URINE OUTPUT: Not applicable. SPECIMENS: None. FINDINGS: See below. DRAINS: None. INDICATIONS: This is a 77-year-old gentleman who has a past medical history for coronary artery disease, for which he underwent coronary artery bypass graft years ago, chronic systolic congestive heart failure [place] Heart Association class 3, ischemic cardiomyopathy, ejection fraction less than 35%, complete heart block, status post a permanent pacemaker back in 08/2006, hypertension, hyperlipidemia and history of colon cancer. Due to his ischemic cardiomyopathy, worsening heart failure and complete heart block with abundance of RV pacing, he was recommended an upgrade to a biventricular pacemaker. It was also discussed with the patient about a biventricular defibrillator; however, he opted to have a pacemaker without any defibrillator capabilities. CONSENT: Consent was obtained prior to the patient going into the electrophysiology lab. The patient was explained the risks, benefits and alternatives to the procedure. Risks include but are not limited to sudden cardiac , cardiac arrhythmias, cerebrovascular accident, myocardial infarction, injury to the blood vessels, chamber of the heart, lungs, bleeding and infection. The patient understood these risks and agreed to have the procedure as planned. Informed consent was obtained. DESCRIPTION OF THE PROCEDURE: The patient was brought into the electrophysiology lab in a fasting state. He was connected to continuous cardiac monitoring. A timeout was performed to ensure the patient's identity and procedure correctly. The patient received prophylactic antibiotics as well as contrast dye allergy prior to incision. Monitored anesthetic care was given throughout the procedure via anesthesiology for the patient's comfort level. [place] precautions were maintained throughout the procedure. 10 mL of 1% lidocaine-bupivacaine mixture were given in the left deltopectoral groove. Incision was made in left deltopectoral groove. Blunt dissection was performed down to identify the cephalic vein; however, none could be identified. During the blunt dissection, the old pulse generator was dissected out and it was just removed from the body but remained attached to the leads. Since no cephalic vein could be identified, a peripheral venogram was performed to identify the axillary vein using 10 mL of IV contrast diluted in 10 mL of saline, followed by 20 mL flush. There was evidence of cephalic vein in addition to an axillary; however, the cephalic vein looked a little thready, so we decided to just do an axillary venous puncture stick. With my initial stick, I did get blood return; however, the guidewire was not going smoothly. I switched out the guidewire for a Glidewire and that started not going smoothly, and when I tried to pull the Glidewire back out, some of the coating of the Glidewire did remain in the body. A second axillary stick was performed without any problems. I inserted a micropuncture guidewire through the needle first, then put the micropuncture sheath over the guidewire without any resistance, then removed the micropuncture dilator and guidewire, and then placed the normal sheath guidewire through the micropuncture dilator without any resistance. Then, a 9.5-Persian sheath was inserted over the guidewire without any resistance. The guidewire and dilator were removed. An MPX with a new Glidewire was advanced through the 9.5-Persian sheath into the right atrium under fluoroscopic guidance. The dilator and guidewire were removed, and a [employer] coronary sinus Decapolar catheter was then used to cannulate the coronary sinus without any problems. The MPX outer coronary sinus sheath was then advanced over the coronary sinus diagnostic EP catheter without any problems. The coronary sinus Decapolar catheter was then removed and a balloon was placed through the MPX outer sheath. A venogram of the coronary sinus along with its branches was performed. There was a nice posterolateral branch that I was able to wire with a Whisper wire without any difficulties. I then advanced the left ventricular pacing lead over the Whisper wire without any problems into this branch. There was adequate pacing, threshold and impedance. There was no diaphragmatic stimulation with high output pacing. The Whisper wire was then removed and a stylet was placed out into the lead. The MPX outer sheath was then pulled back over the lead out of the coronary sinus into the right atrium and then it was split under fluoroscopic guidance. The 9.5-Persian sheath was then pulled back out of the body and it was peeled away under fluoroscopic guidance. The LV pacing lead was then sutured to the pectoralis muscle using 0 silk suture. I did try to then get to see if I could fish out some of that coating of the Glidewire that we saw under x-ray. In doing this, there was a significant amount of blood loss, about 400 mL. So I only was able to pull it back a little bit to where it was probably right under the pacemaker pocket area, it was at least extravascular. I used a pursestring with 2-0 Vicryl around the axillary vein, which stopped any significant bleeding. The pacemaker pocket/capsule was disrupted inferiorly and caudally to allow for new blood flow. The pocket was flushed with copious amounts of bacitracin saline wash and inspected for hemostasis. The old right atrial and right ventricular leads were tested intraoperatively. Then, the leads were all attached to the new pulse generator, making sure that the pins were in appropriate position, passed set screws and set screws were all tightened. The new pulse generator was then placed in the pocket, making sure that the leads were lying flat beneath the device. Fern stat was placed in the pocket to ensure no significant other oozing. The pocket was then closed and the incision was then closed in a 3-layer fashion using 2-0 Vicryl interrupted suture, followed by 3-0 Vicryl interrupted suture, followed by 4-0 Monocryl running stitch and Dermabond was applied. EQUIPMENT: 1. Explanted generator is model SocialMartia DR SEDR01, serial #[id number], implanted 04/13/2012. Voltage was at 2.676 volts. 2. The new pulse generator is a Medtronic Juliana Quad TERRA COTTA ROOFER-P MRI SureScan, model #W4TR02, serial #[id number]. 3. Right atrial lead, 5076-45 cm, serial #[id number], implanted 08/10/2006. 4. Right ventricular lead, model #4092-52, serial #[id number], implanted 08/10/2006. 5. Left ventricular pacing lead, Medtronic 4598-88 cm, serial #[id number]. INTRAOPERATIVE TESTIN. Right atrial lead: P waves 2 millivolts, impedance 387 ohms, threshold 0.7 volts at 1.7 milliamps. 2. Right ventricular lead: No R waves as the patient has complete heart block. Impedance 557 ohms, threshold 0.5 volts at 0.9 milliamps. 3. Left ventricular pacing lead programmed, bipolar LV2-LV3, impedance 351 ohms, threshold 0.6 volts at 1.6 milliamps. FINAL MEASUREMENTS THROUGH THE DEVICE: 1. Right atrial lead: P wave 1.1 millivolts, impedance 323 ohms, threshold 1 volt at 0.4 milliseconds. 2. Right ventricular lead: No R waves as the patient has complete heart block. Impedance 418 ohms, threshold 0.75 volts at 0.4 milliseconds. 3. Left ventricular lead programmed bipolar LV2-LV3, impedance 380 ohms, threshold 0.5 volts at 0.4 milliseconds. FINAL PARAMETERS: DDDR 60/130. Right atrial amplitude 2 volts, pulse width 0.4 milliseconds, sensitivity 0.3 millivolts. Right ventricular amplitude 2 volts, pulse width 0.4 milliseconds, sensitivity 1.2 millivolts. Left ventricular amplitude 3.5 volts, pulse width 0.4 milliseconds. IMPRESSION: Successful upgrade to a biventricular permanent rate responsive pacemaker under fluoroscopic guidance along with peripheral venogram secondary to ischemic cardiomyopathy, complete heart block and chronic systolic heart failure [place] Heart Association class 3. PLAN: Monitor the patient overnight, 12-lead ECG, chest x-ray. Due to the significant amount of blood loss, we will check a CBC around 5:00 p.m. tonight as well as 1:00 in the morning. He is not allowed to lift the left elbow over left shoulder for 1 month. He cannot lift more than 10 pounds with the left arm for 2 weeks. He can shower in a day. He should follow up in our [facility] office for device and wound check in 7-10 days. I attest to the content of the Intraoperative Record and any orders documented therein. Any exceptions are noted below. MTDD
[2017-07-06 00:01] VITALS: O2SAT 95
[2017-07-06 04:00] VITALS: O2SAT 95
[2017-07-06 04:39] VITALS: BP 138/71; PULSE 60; TEMP 36.4; O2SAT 95
[2017-07-06] MEDS ORDERED: NURSING VERBAL MED ORDER ONE (05:00)
[2017-07-06 06:15] LABS: MEAN CELL VOLUME 91.7 fL (80-100); MEAN CORPUSCULAR HEMOGLOBIN 30.6 pg (25-34); MEAN CORPUSCULAR HGB CONC 33.3 g/dl (32-36); PLATELET COUNT 131 K/uL (130-400)
[2017-07-06 06:58] LABS: BUN/CREATININE RATIO 23.5 (10-20); CALCIUM 9.2 mg/dl (8.5-10.1); CREATININE 1.5 mg/dl (0.60-1.40); POTASSIUM 4.2 mmol/L (3.5-5.1)
[2017-07-06 07:14] VITALS: BP 150/70; PULSE 61; TEMP 36.4; O2SAT 98
--- NOTE | 2017-07-06 07:25 | DIAGNOSTIC IMAGING REPORT ---
CHEST 2 VIEWS ROUTINE CLINICAL HISTORY: Pacemaker. COMPARISON STUDY: 05/09/2017 FINDINGS: There is a dual-chamber left subclavian central venous pacemaker. The battery pack/controller has been exchanged. There are postsurgical changes of midline sternotomy. There is no failure. There are linear left basilar opacities likely atelectatic. There is blunting of the left lateral costophrenic angle. No pneumothorax is visualized.[ IMPRESSION: 1. No evidence of pneumothorax 2. Small left pleural effusion and left basilar atelectasis Electronically signed by: Jacky Bower M.D. 07/06/2017 7:24 AM Dictated Date/Time: 07/06/2017 7:22 AM
--- NOTE | 2017-07-06 08:23 | Cardiology Follow-Up ---
Subjective Subjective Date of Service: Jul 06, 2017. Pt evaluation today including: conversation w/ patient, physical exam, chart review, lab review, review of studies Pain: minimal at incision site Problem List Medical Problems: (1) Anxiety Status: Acute (2) Closed right humeral fracture Status: Acute (3) Constipation Status: Acute (4) Dehydration Status: Acute (5) Dyspnea on exertion Status: Acute (6) Headache Status: Acute (7) History of CVA (cerebrovascular accident) Status: Acute (8) Hyperglycemia Status: Acute (9) Hypomagnesemia Status: Acute (10) Left shoulder pain Status: Acute (11) LLL pneumonia Status: Acute (12) Pneumonia Status: Acute (13) Precordial chest pain Status: Acute (14) Proctitis Status: Acute (15) Rib pain on right side Status: Acute (16) Seizure Status: Acute (17) Shortness of breath Status: Acute (18) Unresponsive episode Status: Acute (19) Weakness Status: Acute (20) Weakness Status: Acute Review of Systems Constitutional: No fever, No fatigue Respiratory: No shortness of breath, No dyspnea on exertion Cardiac: No chest pain, No edema, No palpitations Abdomen: No vomiting, No diarrhea Neurologic: + memory loss, + problem reported Objective Vital Signs Last Vital Signs Documentation Date Time Temp Pulse Resp B/P (MAP) Pulse Ox O2 Delivery O2 Flow Rate FiO2 07/06/17 07:14 36.4 61 16 150/70 (96) 98 Room Air 07/06/17 00:01 Physical Exam: General Appearance: WD/WN, no apparent distress, + thin Eyes: bilateral eyes PERRL, bilateral eyes EOMI ENT: normal ENT inspection Neck: supple, no JVD Respiratory/Chest: lungs clear, no respiratory distress, no accessory muscle use Cardiovascular: regular rate, rhythm, no JVD, no murmur Abdomen: non tender, soft Extremities: normal inspection, no pedal edema Neurologic/Psychiatric: alert, normal mood/affect, oriented x 3 Skin: warm/dry (left side pectoral incision intact, no hematoma, no ecchymosis) Assessment and Plan Impression: 1. ICM EF <35%; s/p upgrade to BiV PPM 07/05/2017 2. CHB s/p ppm in past 3. Chronic systolic HF, NYHA Class III 4. HTN 5. HLD Plan: -Ok for discharge home today -Continue home medications -Do not lift the left elbow over the left shoulder for 1 month or lift more than 10 pounds with the left arm for 2 weeks -Can shower tomorrow; do not scrub the incision let water run over it -F/u in our [facility] device clinic in 7-10 days Discharge planning: home Medications: Medications Administered Medications (Trade) Dose Ordered Sig/Nati Route Start Time Stop Time Status Last Admin Dose Admin Heparin Sodium (Porcine) (Heparin Sq 5000 Unit/0.5ml) 5,000 unit Q12 SQ 07/04/17 21:00 08/03/17 20:59 07/05/17 21:27 5,000 UNIT Sodium Chloride 1,000 ml @ 75 mls/hr [id number] IV 07/05/17 02:00 07/06/17 04:50 DC 07/05/17 12:53 75 MLS/HR Acetaminophen (Tylenol Tab) 650 mg Q4H PRN PO 07/04/17 16:30 08/03/17 16:29 07/05/17 16:09 650 MG Aspirin (Ecotrin Tab) 81 mg QPM PO 07/04/17 21:00 08/03/17 20:59 07/05/17 21:17 81 MG Carvedilol (Coreg Tab) 25 mg BID PO 07/04/17 21:00 08/03/17 20:59 07/05/17 21:16 25 MG Clopidogrel Bisulfate (plAVix TAB) 75 mg HS PO 07/04/17 21:00 08/03/17 20:59 07/05/17 21:27 75 MG Finasteride (Proscar Tab) 5 mg QAM PO 07/05/17 09:00 08/04/17 08:59 07/05/17 12:44 5 MG Hydralazine HCl (Apresoline Tab) 50 mg TID PO 07/04/17 21:00 08/03/17 20:59 07/05/17 21:16 50 MG Levetiracetam (Keppra Tab) 500 mg BID PO 07/04/17 21:00 08/03/17 20:59 07/05/17 21:17 500 MG Losartan Potassium (coZAAR TAB) 100 mg QAM PO 07/05/17 09:00 08/04/17 08:59 07/05/17 12:42 100 MG Oxycodone HCl (Roxicodone Immediate Rel Tab) 5 mg DAILY PRN PO 07/04/17 16:30 07/18/17 16:29 07/05/17 13:35 5 MG Sertraline HCl (Zoloft Tab) 50 mg QDL PO 07/05/17 12:00 08/04/17 11:59 07/05/17 12:42 50 MG Oxycodone/ Acetaminophen (Percocet 5-325mg Tab) 1 tab Q6H PRN PO 07/05/17 17:00 07/19/17 16:59 07/05/17 17:21 1 TAB Lab Results: CXR: No PTX, Leads in position ECG: -BiV Paced PPM Interrogation Today: Stable RA & RV testing LV lead testing stable and WNL since implant Last 24 Hours Test 07/05/17 17:01 07/06/17 05:38 White Blood Count 7.99 K/uL 10.20 K/uL Red Blood Count 3.86 M/uL 3.60 M/uL Hemoglobin 11.8 g/dL 11.0 g/dL Hematocrit 35.7 % 33.0 % Mean Corpuscular Volume 92.5 fL 91.7 fL Mean Corpuscular Hemoglobin 30.6 pg 30.6 pg Mean Corpuscular Hemoglobin Concent 33.1 g/dl 33.3 g/dl RDW Standard Deviation 45.5 fL 44.4 fL RDW Coefficient of Variation 13.4 % 13.2 % Platelet Count 134 K/uL 131 K/uL Mean Platelet Volume 9.4 fL 10.0 fL Sodium Level 142 mmol/L Potassium Level 4.2 mmol/L Chloride Level 107 mmol/L Carbon Dioxide Level 27 mmol/L Anion Gap 8.0 mmol/L Blood Urea Nitrogen 35 mg/dl Creatinine 1.50 mg/dl Est Creatinine Clear Calc Drug Dose 36.6 ml/min Estimated GFR () 51.0 Estimated GFR (Non- 44.0 BUN/Creatinine Ratio 23.5 Random Glucose 146 mg/dl Calcium Level 9.2 mg/dl
[2017-07-06] MEDS: HEPARIN SOD 5000 UNIT/0.5 ML CARP SQ SCH (09:00)
[2017-07-06] MEDS: LOSARTAN POTASSIUM 50 MG TAB PO SCH (10:00)
[2017-07-06] MEDS: LEVETIRACETAM 500 MG TAB PO SCH (10:00)
[2017-07-06] MEDS: FINASTERIDE 5 MG TAB PO SCH (10:01)
[2017-07-06] MEDS: CARVEDILOL 25 MG TAB PO SCH (10:01)
[2017-07-06 12:07] VITALS: BP 117/57; PULSE 60; TEMP 36.6; O2SAT 98
--- NOTE | 2017-07-06 13:11 | Anesthesiology Progress Note ---
Anesthesia Post Op Note Date & Time Jul 06, 2017 at 13:11 Vital Signs Pain Intensity: 7.0 Vital Signs Past 12 Hours Date Time Temp Pulse Resp B/P (MAP) Pulse Ox O2 Delivery O2 Flow Rate FiO2 07/06/17 12:07 36.6 60 16 117/57 (77) 98 Room Air 07/06/17 08:00 Room Air 07/06/17 07:14 36.4 61 16 150/70 (96) 98 Room Air 07/06/17 04:39 36.4 60 16 138/71 (93) 95 Room Air 07/06/17 04:00 95 Room Air Notes Mental Status: alert / awake / arousable, participated in evaluation Pt Amnestic to Procedure: Yes Nausea / Vomiting: adequately controlled Pain: adequately controlled Airway Patency, RR, SpO2: stable & adequate BP & HR: stable & adequate Hydration State: stable & adequate Anesthetic Complications: no major complications apparent
[2017-07-06 13:22] VITALS: BP 117/57; PULSE 60; TEMP 36.6; O2SAT 98
[2017-07-06] MEDS: SERTRALINE HCL 50 MG TAB PO SCH (13:53)
== END 2017-07-06 14:56 | disposition home health service (06) | DRG 243 ==
LOC: C.MED 13:24
PROVIDERS: ADMIT Internal Medicine; ATTEND Internal Medicine
PROC: 0X3 Anatomical Regions, Upper Extremities, Control (ICD-10-PCS; principal; 2017-07-05 08:00)
PROC: 0JPT0MZ Removal of Stimulator Generator from Trunk Subcutaneous Tissue and Fascia, Open Approach (ICD-10-PCS; principal; 2017-07-05 08:00)
PROC: B51VYZA Fluoroscopy of Other Veins using Other Contrast, Guidance (ICD-10-PCS; principal; 2017-07-05 08:00)
PROC: 02HL3JZ Insertion of Pacemaker Lead into Left Ventricle, Percutaneous Approach (ICD-10-PCS; principal; 2017-07-05 08:00)
PROC: 0JH606Z Insertion of Pacemaker, Dual Chamber into Chest Subcutaneous Tissue and Fascia, Open Approach (ICD-10-PCS; principal; 2017-07-05 08:00)
PROC: B51NYZZ Fluoroscopy of Left Upper Extremity Veins using Other Contrast (ICD-10-PCS; principal; 2017-07-05 08:00)
DX: I11.0 Hypertensive heart disease with heart failure (principal); I97.418 Intraoperative hemorrhage and hematoma of a circulatory system organ or structure complicating other circulatory system procedure; I44.2 Atrioventricular block, complete; G40.109 Localization-related (focal) (partial) symptomatic epilepsy and epileptic syndromes with simple partial seizures, not intractable, without status epilepticus; F33.1 Major depressive disorder, recurrent, moderate; I69.351 Hemiplegia and hemiparesis following cerebral infarction affecting right dominant side; I50.22 Chronic systolic (congestive) heart failure; I25.5 Ischemic cardiomyopathy; E78.5 Hyperlipidemia, unspecified; I25.10 Atherosclerotic heart disease of native coronary artery without angina pectoris; E11.9 Type 2 diabetes mellitus without complications; I65.22 Occlusion and stenosis of left carotid artery; N40.0 Benign prostatic hyperplasia without lower urinary tract symptoms; I25.2 Old myocardial infarction; Z95.0 Presence of cardiac pacemaker; Z95.1 Presence of aortocoronary bypass graft; Z98.61 Coronary angioplasty status; Z87.01 Personal history of pneumonia (recurrent); Z85.048 Personal history of other malignant neoplasm of rectum, rectosigmoid junction, and anus; Z90.49 Acquired absence of other specified parts of digestive tract; Z92.21 Personal history of antineoplastic chemotherapy; Z92.3 Personal history of irradiation; Z85.828 Personal history of other malignant neoplasm of skin; Z86.718 Personal history of other venous thrombosis and embolism; Z79.02 Long term (current) use of antithrombotics/antiplatelets; Z79.82 Long term (current) use of aspirin; Z79.899 Other long term (current) drug therapy; Z91.041 Radiographic dye allergy status; Z88.5 Allergy status to narcotic agent; Z88.8 Allergy status to other drugs, medicaments and biological substances; Z80.7 Family history of other malignant neoplasms of lymphoid, hematopoietic and related tissues; Z80.42 Family history of malignant neoplasm of prostate; Z80.3 Family history of malignant neoplasm of breast; Z82.49 Family history of ischemic heart disease and other diseases of the circulatory system; Z83.3 Family history of diabetes mellitus

== ENCOUNTER 2017-09-16 13:59 | Inpatient (IN) | payer OTHER ==
[~2017-09-16] VITALS: Ht 170.2 cm; Wt 70.8 kg
[2017-09-16 14:54] LABS: BASO % 0.1 %; BASO ABS # 0.01 K/uL (0-0.2); COMPLETE YES; EOS % 3.1 %; HEMATOCRIT 35.6 % (42-52); IG% 1.5 %; LYMPH % 11.1 %; LYMPH ABS # 0.83 K/uL (1.2-3.4); MEAN CELL VOLUME 90.8 fL (80-100); MEAN CORPUSCULAR HEMOGLOBIN 29.8 pg (25-34); MEAN CORPUSCULAR HGB CONC 32.9 g/dl (32-36); MONO % 3.8 %; NEUT % 80.4 %; PLATELET COUNT 170 K/uL (130-400); RED BLOOD COUNT 3.92 M/uL (4.7-6.1); WHITE BLOOD COUNT 7.46 K/uL (4.8-10.8)
[2017-09-16 15:03] LABS: INR 1.1 (0.9-1.1); PARTIAL THROMBOPLASTIN RATIO 1.2
[2017-09-16] MEDS ORDERED: ONDANSETRON INJ 2 MG/ML 2 ML VIAL IV STA (15:09)
[2017-09-16] MEDS ORDERED: MoRPHine SULFATE 4 MG/ML 1 ML CARP\\VIAL IV STA (15:09)
[2017-09-16] MEDS ORDERED: CARV25TA PO (15:11)
[2017-09-16] MEDS ORDERED: HYDR-4717 PO (15:11)
[2017-09-16 15:14] LABS: BUN/CREATININE RATIO 13.3 (10-20); CALCIUM 8.8 mg/dl (8.5-10.1); CREATININE 1.11 mg/dl (0.60-1.40)
[2017-09-16] MEDS ORDERED: PRED50TA PO (15:15)
[2017-09-16] MEDS ORDERED: ROSU10TA24 PO (15:15)
--- NOTE | 2017-09-16 15:50 | DIAGNOSTIC IMAGING REPORT ---
HEAD WITHOUT CONTRAST (CT) CLINICAL HISTORY: 77 years-old Male presenting with AMS, increasing confusion, known aneurysm, history of stroke. TECHNIQUE: Multidetector CT imaging of the head was performed without the use of intravenous contrast. IV contrast: None. A dose lowering technique was used consistent with the principles of ALARA (as low as reasonably achievable). COMPARISON: 05/09/2017. CT DOSE (mGy.cm): The estimated cumulative dose is 920.[address] cervical spine. FINDINGS: Elementary Education Teacher topogram: Unremarkable. Proportional ventricular and sulcal prominence, likely age-related parenchymal volume loss. Periventricular and subcortical white matter hypoattenuation, nonspecific but likely indicative of chronic small vessel ischemic change. Encephalomalacia in the left basal ganglia and left thalamus. Likely old infarct. No mass effect or midline shift. No hemorrhage or acute territorial infarct. No extra-axial fluid collection. Paranasal sinuses and mastoid air cells clear. Calvarium intact. Bilateral cher-ae heights lenses are absent. IMPRESSION: 1. No acute intracranial pathology. Chronic small vessel ischemic change and stable encephalomalacia in the left basal ganglia. Electronically signed by: Farhad Mcbride M.D. 09/16/2017 3:49 PM Dictated Date/Time: 09/16/2017 3:45 PM
--- NOTE | 2017-09-16 15:55 | DIAGNOSTIC IMAGING REPORT ---
CERVICAL SPINE W/O CLINICAL HISTORY: 77 years-old Male presenting with fall hit head. TECHNIQUE: Multidetector CT of the cervical spine was performed without the use of intravenous contrast. IV contrast: None. A dose lowering technique was used consistent with the principles of ALARA (as low as reasonably achievable). COMPARISON: Correlation made to CT angiography of the neck from 04/27/2017. CT DOSE (mGy.cm): The estimated cumulative dose is 920.30 mGy.cm. FINDINGS: Auth Specialist topogram: Unremarkable. Normal cervical lordosis. Vertebral bodies maintain normal height and alignment. Intervertebral disc height loss noted at C6-7 with the remainder of the disc heights are observed. Disc osteophyte complexes noted at multiple levels, most strikingly at C3-4, where there is suggestion of disc extrusion with cranial migration area this appears to cause significant effacement of the paracentral ventral thecal sac. Disc osteophyte complexes at the remaining levels results and lesser degrees of paracentral ventral thecal sac effacement. Uncovertebral hypertrophy to varying degrees throughout the cervical spine, greatest at C6-7, where there is moderate right and mild left osseous neural foraminal narrowing. No acute fracture or subluxation. Smooth interlobular septal thickening at the lung apices with scattered groundglass opacities suggested. IMPRESSION: 1. No acute osseous injury of the cervical spine. 2. Multilevel degenerative changes including suggestion of a disc extrusion with cranial migration and resulting significant effacement of the spinal canal at C3-4. Lesser degrees of spinal canal narrowing at additional levels. Neural foraminal narrowing at C6-7. 3. Interlobular septal thickening at the lung apices could suggest volume overload. Electronically signed by: Farhad Mcbride M.D. 09/16/2017 3:54 PM Dictated Date/Time: 09/16/2017 3:49 PM
--- NOTE | 2017-09-16 16:12 | DIAGNOSTIC IMAGING REPORT ---
CHEST 1 VW FRONT-NOT PORTABLE CLINICAL HISTORY: 77 years-old Male presenting with LEG PAIN. TECHNIQUE: Portable upright AP view of the chest was obtained. COMPARISON: 07/06/2017. FINDINGS: Left-sided pacer with leads to the right atrium, coronary sinus, and right ventricular apex. Median sternotomy wires and mediastinal surgical clips unchanged. Atherosclerosis of the aortic arch. Cardiac silhouette enlarged, unchanged. Mild prominence of pulmonary vasculature. Persistent left basilar bandlike opacity. Overall diffuse prominence of lung markings, unchanged. Slight blunting of the left costophrenic angle, unchanged. No pneumothorax. Suggestion of osteopenia. Bilateral degenerative changes in the glenohumeral joints. Cholecystectomy clips. IMPRESSION: 1. Stable left basilar atelectasis and trace left pleural effusion. 2. Cardiomegaly. 3. Prominence of pulmonary vasculature and diffuse lung markings could indicate volume overload. Electronically signed by: Farhad Mcbride M.D. 09/16/2017 4:11 PM Dictated Date/Time: 09/16/2017 4:09 PM
--- NOTE | 2017-09-16 16:14 | DIAGNOSTIC IMAGING REPORT ---
PELVIS 1 OR 2 VIEW ROUTINE CLINICAL HISTORY: 77 years-old Male presenting with l hip pain, altered mental status, leg pain. TECHNIQUE: Single frontal view of the pelvis was obtained. COMPARISON: CT from 06/06/2016. FINDINGS: Osteopenia. Hip joints congruent. Pubic symphysis and sacroiliac joints congruent. Bony pelvis intact. No evidence of femoral neck fracture. Degenerative changes of the lower lumbar spine. Moderate stool burden noted in the right colon. IMPRESSION: 1. No acute osseous injury of the pelvis. 2. Osteopenia. Electronically signed by: Farhad Mcbride M.D. 09/16/2017 4:12 PM Dictated Date/Time: 09/16/2017 4:11 PM
--- NOTE | 2017-09-16 16:16 | DIAGNOSTIC IMAGING REPORT ---
L FEMUR 2 VIEWS ROUTINE CLINICAL HISTORY: 77 years-old Male presenting with L fem pain . TECHNIQUE: Frontal and lateral views of the left femur were obtained. COMPARISON: None. FINDINGS: Left hip joint congruent. Knee joint congruent. No acute fracture or malalignment. No large knee joint effusion. Osteopenia. Atherosclerosis. Anastomotic suture line suggested in the pelvis. IMPRESSION: No acute osseous injury of the left femur. Electronically signed by: Farhad Mcbride M.D. 09/16/2017 4:15 PM Dictated Date/Time: 09/16/2017 4:13 PM
[2017-09-16 16:41] LABS: URINE APPEARANCE CLEAR (CLEAR); URINE BILIRUBIN NEG (NEG); URINE COLOR YELLOW; URINE NITRITE NEG (NEG); URINE SPECIFIC GRAVITY 1.019 (1.000-1.030); UROBILINOGEN NEG (NEG); ZZURINE CULT IF INDIC CATH NO
[2017-09-16 16:43] LABS: MANUAL MICROSCOPIC REQUIRED? NO; REVIEW REQ? NO
[2017-09-16] MEDS ORDERED: ALUMINUM/MAGNESIUM/SIMETH (MAALOX MAX) 30 ML UDC PO PRN (17:15)
[2017-09-16] MEDS ORDERED: NITROGLYCERIN 0.4 MG SL PER TAB CHARGE SL PRN (17:15)
[2017-09-16] MEDS ORDERED: HYOSCYAMINE SULFATE 0.125 MG SL TAB PO PRN (17:15)
[2017-09-16] MEDS ORDERED: MoRPHine SULFATE 2 MG/ML CARP IV PRN (17:15)
[2017-09-16 17:35] VITALS: O2SAT 95; Ht 170.2 cm; Wt 70.8 kg
[2017-09-16 19:17] VITALS: BP 151/76; PULSE 91; TEMP 37.2; O2SAT 94
--- NOTE | 2017-09-16 19:59 | History and Physical ---
History & Physical Date & Time of Service: Sep 16, 2017 at 18:56 Chief Complaint: Right Leg Pain Primary Care Physician: Xavi Moreno M.D.(CARLOS) History of Present Illness Source: patient, family, clinic records, hospital records This is a 77 year old male with a complex past medical history including CAD s/ p CABG and stents, hx. of complete heart block s/p pacemaker in situ, chronic severe cardiomyopathy and systolic CHF with EF around 25%, HTN, HLD, DM2, hx. of CVA, hx. of brain aneurysm, prior hx. of colorectal cancer s/p resection/chem /radiation - presents with a few week history of worsening confusion, weakness and a fall. As per , who is the primary historian - she tells me that after his stroke in 2016, he has had difficulty with expressive aphasia - in the past few weeks though, he is more confused, does not know where is at times. He has been complaining about headaches more often, and was seen by neurosurgery at [facility]. Has had multiple CTAs in the past, recently showing a R MCA Aneurysm. Plan was for patient to go for a Digital Subtraction Angiography as per neurosurgery; planned for Monday (09/20/17). As per , patient also has been becoming short of breath at night. He has been exerted more energy to breath as per . There was some swelling in the lower extremities which is now resolved. Earlier, prior to arrival, patient was walking with his walker, and he fell backwards. He was grabbing his L hip and complained that it was painful. brought him in for further evaluation. Patient is lying comfortably; answers "yes" or "no" to some questions. Past Medical/Surgical History Medical Problems: (1) AV block Permanent Comment: s/p pacemaker Status: Chronic (2) Benign prostatic hyperplasia Status: Chronic (3) Carotid disease, bilateral Permanent Comment: asymptomatic Status: Chronic (4) Coronary artery disease Permanent Comment: s/p NH Status: Chronic (5) Diabetes mellitus, type II Status: Chronic (6) Dyslipidemia Status: Chronic (7) GERD (gastroesophageal reflux disease) Status: Chronic (8) History of skin cancer Status: Chronic (9) Hypertension Status: Chronic (10) Left bundle branch block Status: Chronic (11) Malignant neoplasm of rectum Permanent Comment: Rectal bleeding Status post colonoscopy and biopsy 04/02/2015 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 Status post endoscopic ultrasound stage [id number] Neoadjuvant radiation and chemotherapy Chemotherapy comprised of Xeloda Status post completion of radiation therapy 06/24/2015 received 5460 cGy Status post rectosigmoid resection 08/27/2015 [id number] M0 Status post ileostomy closure 04/14/2016, gait by small bowel obstruction and then hemorrhage Status post CVA and then slow wound healing Status: Resolved (12) Seizure Status: Chronic Surgical Problems: (1) H/O ileostomy Status: Chronic (2) History of resection of rectum Status: Resolved (3) S/P colon resection Status: Chronic (4) Status post cardiac pacemaker procedure Permanent Comment: initial 2005, generator change 2011 Status: Chronic (5) Status post cholecystectomy Status: Chronic (6) Status post coronary artery bypass grafting Permanent Comment: Dr. Stephens [facility] [place] 2001 DIAZ-LAD, SVG left circumflex Status: Chronic (7) Status post shoulder surgery Status: Chronic (8) Status post tonsillectomy Status: Chronic Family History Cad, cabg BROTHER Cancer aunt,uncle Diabetes mellitus MOTHER Gallbladder disease Hypertension MOTHER BROTHER Kidney disease Multiple myeloma FATHER Social History Smoking Status: Former Smoker Drug Use: none Marital Status: Housing status: lives with family Occupational Status: retired, other Immunizations History of Influenza Vaccine: Yes Influenza Vaccine Date: Aug 15, 2014 History of Tetanus Vaccine?: Unknown History of Pneumococcal: Yes Pneumococcal Date: May 31, 2005 History of Hepatitis B Vaccine: No Multi-Drug Resistant Organisms History of MDRO: No Allergies Coded Allergies: Iodine (Verified Allergy, Severe, airway edema, 09/16/17) Tramadol (Verified Allergy, Severe, seizures, 09/16/17) Oxycodone (Verified Allergy, Unknown, "itchiness all over", 09/16/17) Felodipine (Verified Adverse Reaction, Mild, cough, 09/16/17) ANCELMO Inhibitors (Verified Adverse Reaction, Unknown, COUGHING, 09/16/17) Codeine (Verified Adverse Reaction, Unknown, hallucinations, depression, 09/16/17) Home Medications Scheduled Aspirin (Aspirin Ec), 81 MG PO QPM Carvedilol (Coreg), 25 MG PO QAM Carvedilol (Coreg), 37.5 MG PO QPM Clopidogrel Bisulfate (Clopidogrel), 75 MG PO HS Coenzyme Q10 (Ubidecarenone) (Coenzyme Q-10), 2 TABS PO BID Finasteride (Finasteride), 5 MG PO QAM Furosemide (Lasix), 40 MG PO WK Furosemide (Lasix), 20 MG PO DAILY Hydralazine Hcl (Apresoline), 25 MG PO TID Levetiracetam (Keppra), 500 MG PO BID Losartan Potassium (Cozaar), 100 MG PO QAM Magnesium Oxide (Mg Supplement (Magnesium Oxide), 400 MG PO QDL Multiple Vitamins W/ Minerals (Centrum Men), 1 TAB PO QAM Potassium Chloride (Micro-K Ext Rel), 10 MEQ PO DAILY Potassium Chloride (K-Tabs), 20 MEQ PO WK Prednisone (Prednisone), 50 MG PO DIRECTED Rosuvastatin Calcium (Rosuvastatin Calcium), 10 MG PO DAILY Sertraline HCl (Sertraline HCl), 50 MG PO QDL Scheduled PRN Acetaminophen (Tylenol Arthritis Ext Rel), 650 MG PO Q8H PRN for Pain Hyoscyamine Sulfate (Hyoscyamine Sulfate), 0.125 MG PO Q4H PRN for Cramping Nitroglycerin (Nitrostat), 0.4 MG SL UD PRN for Chest Pain Nystatin (Nystatin Cream), 0 EXT DAILY PRN for RASH Oxycodone Immediate Rel Tab (Roxicodone Ir), 1 TAB PO DAILY PRN for Pain Review of Systems Difficult to assess due to patient's mental status Physical Exam Vital Signs Date Time Temp Pulse Resp B/P (MAP) Pulse Ox O2 Delivery O2 Flow Rate FiO2 09/16/17 17:42 100 16 157/83 95 Room Air 09/16/17 17:35 95 Room Air 09/16/17 16:14 104 16 206/115 98 Room Air 170/109 09/16/17 14:56 93 Nasal Cannula 3.0 09/16/17 14:34 98 Room Air 09/16/17 14:20 82 09/16/17 14:01 37.1 75 18 176/89 93 Room Air General Appearance: no apparent distress Head: normocephalic, atraumatic Eyes: normal inspection ENT: hearing grossly normal Neck: supple Respiratory/Chest: no respiratory distress, no accessory muscle use, + decreased breath sounds Cardiovascular: regular rate, rhythm, no edema, no murmur, + pertinent finding (+pacer) Abdomen/GI: normal bowel sounds, non tender, soft Extremities/Musculoskelatal: normal inspection, no calf tenderness, normal capillary refill, no pedal edema, normal range of motion Neurologic/Psych: alert, + disoriented, + pertinent finding (chronic expressive aphasia) Skin: normal color Lymphatic: no adenopathy Diagnostics Laboratory Results Results Past 24 Hours Test 09/16/17 14:40 09/16/17 16:30 09/16/17 17:32 Range/Units White Blood Count 7.46 4.8-10.8 K/uL Red Blood Count 3.92 4.7-6.1 M/uL Hemoglobin 11.7 14.0-18.0 g/dL Hematocrit 35.6 42-52 % Mean Corpuscular Volume 90.8 80-100 fL Mean Corpuscular Hemoglobin 29.8 25-34 pg Mean Corpuscular Hemoglobin Concent 32.9 32-36 g/dl Platelet Count 170 130-400 K/uL Mean Platelet Volume 9.0 7.4-10.4 fL Neutrophils (%) (Auto) 80.4 % Lymphocytes (%) (Auto) 11.1 % Monocytes (%) (Auto) 3.8 % Eosinophils (%) (Auto) 3.1 % Basophils (%) (Auto) 0.1 % Neutrophils # (Auto) 6.00 1.4-6.5 K/uL Lymphocytes # (Auto) 0.83 1.2-3.4 K/uL Monocytes # (Auto) 0.28 0.11-0.59 K/uL Eosinophils # (Auto) 0.23 0-0.5 K/uL Basophils # (Auto) 0.01 0-0.2 K/uL RDW Standard Deviation 43.2 36.4-46.3 fL RDW Coefficient of Variation 13.0 11.5-14.5 % Immature Granulocyte % (Auto) 1.5 % Immature Granulocyte # (Auto) 0.11 0.00-0.02 K/uL Prothrombin Time 12.0 9.0-12.0 SECONDS Prothromb Time International Ratio 1.1 0.9-1.1 Activated Partial Thromboplast Time 30.4 21.0-31.0 SECONDS Partial Thromboplastin Ratio 1.2 Sodium Level 139 136-145 mmol/L Potassium Level 4.0 3.5-5.1 mmol/L Chloride Level 104 98-107 mmol/L Carbon Dioxide Level 28 21-32 mmol/L Anion Gap 7.0 3-11 mmol/L Blood Urea Nitrogen 15 7-18 mg/dl Creatinine 1.11 0.60-1.40 mg/dl Est Creatinine Clear Calc Drug Dose 51.3 ml/min Estimated GFR () 73.3 Estimated GFR (Non- 63.3 BUN/Creatinine Ratio 13.3 10-20 Random Glucose 130 70-99 mg/dl Calcium Level 8.8 8.5-10.1 mg/dl Total Bilirubin 0.5 0.2-1 mg/dl Direct Bilirubin 0.1 0-0.2 mg/dl Aspartate Amino Transf (AST/SGOT) 35 15-37 U/L Alanine Aminotransferase (ALT/SGPT) 56 12-78 U/L Alkaline Phosphatase 195 45-117 U/L Troponin I 0.031 0-0.045 ng/ml Pro-B-Type Natriuretic Peptide 80593 0-1800 pg/ml Total Protein 7.4 6.4-8.2 gm/dl Albumin 3.1 3.4-5.0 gm/dl Urine Color YELLOW Urine Appearance CLEAR CLEAR Urine pH 7.0 4.5-7.5 Urine Specific [place] 1.019 1.000-1.030 Urine Protein 1+ NEG Urine Glucose (UA) NEG NEG Urine Ketones NEG NEG Urine Occult Blood NEG NEG Urine Nitrite NEG NEG Urine Bilirubin NEG NEG Urine Urobilinogen NEG NEG Urine Leukocyte Esterase NEG NEG Urine WBC (Auto) 0 0-5 /hpf Urine RBC (Auto) 10-30 0-4 /hpf Urine Hyaline Casts (Auto) 0 0-5 /lpf Urine Epithelial Cells (Auto) 5-10 0-5 /lpf Urine Bacteria (Auto) NEG NEG Diagnostic Radiology CHEST 1 VW FRONT-NOT PORTABLE CLINICAL HISTORY: 77 years-old Male presenting with LEG PAIN. TECHNIQUE: Portable upright AP view of the chest was obtained. COMPARISON: 07/06/2017. FINDINGS: Left-sided pacer with leads to the right atrium, coronary sinus, and right ventricular apex. Median sternotomy wires and mediastinal surgical clips unchanged. Atherosclerosis of the aortic arch. Cardiac silhouette enlarged, unchanged. Mild prominence of pulmonary vasculature. Persistent left basilar bandlike opacity. Overall diffuse prominence of lung markings, unchanged. Slight blunting of the left costophrenic angle, unchanged. No pneumothorax. Suggestion of osteopenia. Bilateral degenerative changes in the glenohumeral joints. Cholecystectomy clips. IMPRESSION: 1. Stable left basilar atelectasis and trace left pleural effusion. 2. Cardiomegaly. 3. Prominence of pulmonary vasculature and diffuse lung markings could indicate volume overload. CERVICAL SPINE W/O CLINICAL HISTORY: 77 years-old Male presenting with fall hit head. TECHNIQUE: Multidetector CT of the cervical spine was performed without the use of intravenous contrast. IV contrast: None. A dose lowering technique was used consistent with the principles of ALARA (as low as reasonably achievable). COMPARISON: Correlation made to CT angiography of the neck from 04/27/2017. CT DOSE (mGy.cm): The estimated cumulative dose is 920.30 mGy.cm. FINDINGS: [employer] topogram: Unremarkable. Normal cervical lordosis. Vertebral bodies maintain normal height and alignment. Intervertebral disc height loss noted at C6-7 with the remainder of the disc heights are observed. Disc osteophyte complexes noted at multiple levels, most strikingly at C3-4, where there is suggestion of disc extrusion with cranial migration area this appears to cause significant effacement of the paracentral ventral thecal sac. Disc osteophyte complexes at the remaining levels results and lesser degrees of paracentral ventral thecal sac effacement. Uncovertebral hypertrophy to varying degrees throughout the cervical spine, greatest at C6-7, where there is moderate right and mild left osseous neural foraminal narrowing. No acute fracture or subluxation. Smooth interlobular septal thickening at the lung apices with scattered groundglass opacities suggested. IMPRESSION: 1. No acute osseous injury of the cervical spine. 2. Multilevel degenerative changes including suggestion of a disc extrusion with cranial migration and resulting significant effacement of the spinal canal at C3-4. Lesser degrees of spinal canal narrowing at additional levels. Neural foraminal narrowing at C6-7. 3. Interlobular septal thickening at the lung apices could suggest volume overload. EKG Ventricular-paced rhythm Impression Assessment and Plan This is a 77 year old male with a complex past medical history including CAD s/ p CABG and stents, hx. of complete heart block s/p pacemaker in situ, chronic severe cardiomyopathy and systolic CHF with EF around 25%, HTN, HLD, hx. of CVA , hx. of brain aneurysm, prior hx. of colorectal cancer s/p resection/chem/ radiation - presents with a few week history of worsening confusion, weakness, fall, and worsening shortness of breath. Acute on Chronic Systolic CHF severe ischemic cardiomyopathy with EF ~ 25% uses Lasix at home CXR suggests some pleural effusion will give IV Lasix; will put a [place] in and measure Intake and output consult cardiology for further input Weakness Fall uncertain if patient felt dizzy prior to falling will check an updated echo uses walker for ambulation at baseline PT/OT Altered Mental Status Hx. of Aneurysm as per , he is altered from baseline chronic expressive aphasia issues has been having headaches for the past few weeks seen by neurosurgery at [place] - was to have a DSA for eval of R MCA aneurysm consulted neurology for further input CAD s/p CABG s/p stenting no chest pain noted; will trend cardiac markers continue home medications, including aspirin, plavix, statin, b-rena HTN blood pressure elevated; will give extra dose of hydralazine continue Cozaar and home medications DVT ppx heparin FULL CODE Advanced Directives Existing Living Will: No Existing Power of [employer]: No VTE Prophylaxis VTE Risk Assessment Done? Y/N: Yes Risk Level: High
[2017-09-16] MEDS ORDERED: FUROSEMIDE INJ 40 MG in SYRINGE 0 ML IV ONE (20:00)
[2017-09-16] MEDS ORDERED: CARVEDILOL 25 MG TAB PO SCH (21:00)
[2017-09-16 21:07] VITALS: BP 114/65; PULSE 82
[2017-09-16] MEDS: CLOPIDOGREL BISULFATE 75 MG TAB PO SCH (21:07)
[2017-09-16] MEDS: ASPIRIN 81 MG ECTAB PO SCH (21:07)
[2017-09-16] MEDS: DOCUSATE SODIUM 100 MG CAP PO SCH (21:08)
[2017-09-16] MEDS: LEVETIRACETAM 500 MG TAB PO SCH (21:08)
--- NOTE | 2017-09-16 21:29 | EMERGENCY ROOM VISIT NOTE ---
History Report prepared by Michelle: Jamison Leon Under the Supervision of: Dr. Les Jacobsen D.O. First contact with patient: 14:10 Chief Complaint: LEG PAIN,LEG INJURY Stated Complaint: RIGHT LEG PAIN History of Present Illness The patient is a 77 year old male with a history of a recent stroke who presents to the Emergency Room with worsening confusion that started upon waking this morning. Per the patient's , the patient was confused as to how to get out of bed this morning, and the patient usually can get out of bed without problems. The patient noted that he did not know how to get out of bed, and he was incontinent twice in the middle of the night and once this morning, which is also unusual. The patient's states that the patient normally can have an appropriate conversation, and knows the year and the date. The patient has not been diagnosed with dementia, but had a recent stroke and has a current aneurysm. The patient has sometimes got a bit confused intermittently since then , but not to this extent. The patient noted this morning that he did not feel well, and his blood pressure was noted to be 170/90. The patient could not explain why he was not feeling well. He was then helped out of bed around 3 hours ago, but after eating, he stood up and lost his balance and fell backwards. The patient's states that the patient hit his right elbow on the fall, but ever since the fall, the patient has been complaining of right hip pain. He was able to walk after the fall. Per the patient's , the patient has had worsening intermittent headaches since the aneurysm on his left side. The patient denies any current headaches, chest pain, abdominal pain, or pain or burning with urination. His last bowel movement was yesterday and it was normal. The patient takes Plavix and a baby aspirin daily. Source of History: patient, nursing staff Onset: Upon waking this morning Position: other (global - confusion) Quality: other (did not know how to get out of bed) Timing: worsening Associated Symptoms: + urinary symptoms (incontinent twice, denies pain or burning with urination), No headache, No chest pain, No abdominal pain Note: Associated symptoms: Patient not feeling well. Fell backwards this morning. Review of Systems See HPI for pertinent positives & negatives. A total of 10 systems reviewed and were otherwise negative. Past Medical & Surgical Medical Problems: (1) AV block (2) Benign prostatic hyperplasia (3) Carotid disease, bilateral (4) Chest pain (5) CHF exacerbation (6) Chronic systolic CHF (congestive heart failure), NYHA class 3 (7) Clostridium difficile infection (8) Coronary artery disease (9) Diabetes mellitus, type II (10) DVT (deep venous thrombosis) (11) Dyslipidemia (12) Elevated blood pressure reading (13) Fall (14) GERD (gastroesophageal reflux disease) (15) History of colorectal cancer (16) History of CVA (cerebrovascular accident) (17) History of skin cancer (18) Hypertension (19) Left bundle branch block (20) Malignant neoplasm of rectum (21) Pacemaker at end of battery life (22) Peripheral vascular disease (23) Right humeral fracture (24) Seizure (25) Seizure disorder (26) Sick sinus syndrome Surgical Problems: (1) H/O ileostomy (2) History of resection of rectum (3) S/P colon resection (4) Status post cardiac pacemaker procedure (5) Status post cholecystectomy (6) Status post coronary artery bypass grafting (7) Status post shoulder surgery (8) Status post tonsillectomy Family History Cad, cabg BROTHER Cancer aunt,uncle Diabetes mellitus MOTHER Gallbladder disease Hypertension MOTHER BROTHER Kidney disease Multiple myeloma FATHER Social History Smoking Status: Never Smoker Alcohol Use: none Drug Use: none Marital Status: Housing Status: lives with family Occupation Status: retired, other Current/Historical Medications Scheduled Aspirin (Aspirin Ec), 81 MG PO QPM Carvedilol (Coreg), 25 MG PO QAM Carvedilol (Coreg), 37.5 MG PO QPM Clopidogrel Bisulfate (Clopidogrel), 75 MG PO HS Coenzyme Q10 (Ubidecarenone) (Coenzyme Q-10), 2 TABS PO BID Finasteride (Finasteride), 5 MG PO QAM Furosemide (Lasix), 40 MG PO WK Furosemide (Lasix), 20 MG PO DAILY Hydralazine Hcl (Apresoline), 25 MG PO TID Levetiracetam (Keppra), 500 MG PO BID Losartan Potassium (Cozaar), 100 MG PO QAM Magnesium Oxide (Mg Supplement (Magnesium Oxide), 400 MG PO QDL Multiple Vitamins W/ Minerals (Centrum Men), 1 TAB PO QAM Potassium Chloride (Micro-K Ext Rel), 10 MEQ PO DAILY Potassium Chloride (K-Tabs), 20 MEQ PO WK Prednisone (Prednisone), 50 MG PO DIRECTED Rosuvastatin Calcium (Rosuvastatin Calcium), 10 MG PO DAILY Sertraline HCl (Sertraline HCl), 50 MG PO QDL Scheduled PRN Acetaminophen (Tylenol Arthritis Ext Rel), 650 MG PO Q8H PRN for Pain Hyoscyamine Sulfate (Hyoscyamine Sulfate), 0.125 MG PO Q4H PRN for Cramping Nitroglycerin (Nitrostat), 0.4 MG SL UD PRN for Chest Pain Nystatin (Nystatin Cream), 0 EXT DAILY PRN for RASH Oxycodone Immediate Rel Tab (Roxicodone Ir), 1 TAB PO DAILY PRN for Pain Allergies Coded Allergies: Iodine (Verified Allergy, Severe, airway edema, 09/16/17) Tramadol (Verified Allergy, Severe, seizures, 09/16/17) Oxycodone (Verified Allergy, Unknown, "itchiness all over", 09/16/17) Felodipine (Verified Adverse Reaction, Mild, cough, 09/16/17) ANCELMO Inhibitors (Verified Adverse Reaction, Unknown, COUGHING, 09/16/17) Codeine (Verified Adverse Reaction, Unknown, hallucinations, depression, 09/16/17) Physical Exam Vital Signs Date Time Temp Pulse Resp B/P (MAP) Pulse Ox O2 Delivery O2 Flow Rate FiO2 09/16/17 16:14 104 16 206/115 98 Room Air 170/109 09/16/17 14:56 93 Nasal Cannula 3.0 09/16/17 14:34 98 Room Air 09/16/17 14:20 82 09/16/17 14:01 37.1 75 18 176/89 93 Room Air Physical Exam GENERAL: alert, well appearing, well nourished, no distress, non-toxic HEAD: normal cephalic, atraumatic EYE EXAM: normal conjunctiva, PERRL and EOM's grossly intact OROPHARYNX: no exudate, no erythema, lips, buccal mucosa, and tongue normal and mucous membranes are moist NECK: Mild midline cervical tenderness and paraspinal tenderness. Supple, no nuchal rigidity, no adenopathy CHEST: stable to compression anteriorly and posteriorly LUNGS: clear to auscultation. Normal chest wall mechanics HEART: no murmurs, S1 normal and S2 normal ABDOMEN: abdomen soft, non-tender, normo-active bowel sounds, no masses, no rebound or guarding. PELVIS: faint tenderness over left proximal femur. BACK: Back is symmetrical on inspection and there is no deformity, no midline tenderness, no CVA tenderness. UPPER EXTREMITIES: full active and passive range of motion of all joints without tenderness to palpation LOWER EXTREMITIES: full active and passive range of motion of all joints without tenderness to palpation NEURO EXAM: Awake, alert, oriented to place but not year or month. Right side is slightly weaker than left in lower and upper extremities, no focal deficits, old per . Medical Decision & Procedures ER Provider Diagnostic Interpretation: Radiology results as stated below per my review and the radiologist's interpretation: PELVIS 1 OR 2 VIEW ROUTINE CLINICAL HISTORY: 77 years-old Male presenting with l hip pain, altered mental status, leg pain. TECHNIQUE: Single frontal view of the pelvis was obtained. COMPARISON: CT from 06/06/2016. FINDINGS: Osteopenia. Hip joints congruent. Pubic symphysis and sacroiliac joints congruent. Bony pelvis intact. No evidence of femoral neck fracture. Degenerative changes of the lower lumbar spine. Moderate stool burden noted in the right colon. IMPRESSION: 1. No acute osseous injury of the pelvis. 2. Osteopenia. Electronically signed by: Farhad Mcbride M.D. 09/16/2017 4:12 PM Dictated Date/Time: 09/16/2017 4:11 PM HEAD WITHOUT CONTRAST (CT) CLINICAL HISTORY: 77 years-old Male presenting with AMS, increasing confusion, known aneurysm, history of stroke. TECHNIQUE: Multidetector CT imaging of the head was performed without the use of intravenous contrast. IV contrast: None. A dose lowering technique was used consistent with the principles of ALARA (as low as reasonably achievable). COMPARISON: 05/09/2017. CT DOSE (mGy.cm): The estimated cumulative dose is 920.[address] cervical spine. FINDINGS: Application Development Director topogram: Unremarkable. Proportional ventricular and sulcal prominence, likely age-related parenchymal volume loss. Periventricular and subcortical white matter hypoattenuation, nonspecific but likely indicative of chronic small vessel ischemic change. Encephalomalacia in the left basal ganglia and left thalamus. Likely old infarct. No mass effect or midline shift. No hemorrhage or acute territorial infarct. No extra-axial fluid collection. Paranasal sinuses and mastoid air cells clear. Calvarium intact. Bilateral false pass lenses are absent. IMPRESSION: 1. No acute intracranial pathology. Chronic small vessel ischemic change and stable encephalomalacia in the left basal ganglia. Electronically signed by: Farhad Mcbride M.D. 09/16/2017 3:49 PM Dictated Date/Time: 09/16/2017 3:45 PM L FEMUR 2 VIEWS ROUTINE CLINICAL HISTORY: 77 years-old Male presenting with L fem pain . TECHNIQUE: Frontal and lateral views of the left femur were obtained. COMPARISON: None. FINDINGS: Left hip joint congruent. Knee joint congruent. No acute fracture or malalignment. No large knee joint effusion. Osteopenia. Atherosclerosis. Anastomotic suture line suggested in the pelvis. IMPRESSION: No acute osseous injury of the left femur. Electronically signed by: Farhad Mcbride M.D. 09/16/2017 4:15 PM Dictated Date/Time: 09/16/2017 4:13 PM CERVICAL SPINE W/O CLINICAL HISTORY: 77 years-old Male presenting with fall hit head. TECHNIQUE: Multidetector CT of the cervical spine was performed without the use of intravenous contrast. IV contrast: None. A dose lowering technique was used consistent with the principles of ALARA (as low as reasonably achievable). COMPARISON: Correlation made to CT angiography of the neck from 04/27/2017. CT DOSE (mGy.cm): The estimated cumulative dose is 920.30 mGy.cm. FINDINGS: Application Development Director topogram: Unremarkable. Normal cervical lordosis. Vertebral bodies maintain normal height and alignment. Intervertebral disc height loss noted at C6-7 with the remainder of the disc heights are observed. Disc osteophyte complexes noted at multiple levels, most strikingly at C3-4, where there is suggestion of disc extrusion with cranial migration area this appears to cause significant effacement of the paracentral ventral thecal sac. Disc osteophyte complexes at the remaining levels results and lesser degrees of paracentral ventral thecal sac effacement. Uncovertebral hypertrophy to varying degrees throughout the cervical spine, greatest at C6-7, where there is moderate right and mild left osseous neural foraminal narrowing. No acute fracture or subluxation. Smooth interlobular septal thickening at the lung apices with scattered groundglass opacities suggested. IMPRESSION: 1. No acute osseous injury of the cervical spine. 2. Multilevel degenerative changes including suggestion of a disc extrusion with cranial migration and resulting significant effacement of the spinal canal at C3-4. Lesser degrees of spinal canal narrowing at additional levels. Neural foraminal narrowing at C6-7. 3. Interlobular septal thickening at the lung apices could suggest volume overload. Electronically signed by: Farhad Mcbride M.D. 09/16/2017 3:54 PM Dictated Date/Time: 09/16/2017 3:49 PM CHEST 1 VW FRONT-NOT PORTABLE CLINICAL HISTORY: 77 years-old Male presenting with LEG PAIN. TECHNIQUE: Portable upright AP view of the chest was obtained. COMPARISON: 07/06/2017. FINDINGS: Left-sided pacer with leads to the right atrium, coronary sinus, and right ventricular apex. Median sternotomy wires and mediastinal surgical clips unchanged. Atherosclerosis of the aortic arch. Cardiac silhouette enlarged, unchanged. Mild prominence of pulmonary vasculature. Persistent left basilar bandlike opacity. Overall diffuse prominence of lung markings, unchanged. Slight blunting of the left costophrenic angle, unchanged. No pneumothorax. Suggestion of osteopenia. Bilateral degenerative changes in the glenohumeral joints. Cholecystectomy clips. IMPRESSION: 1. Stable left basilar atelectasis and trace left pleural effusion. 2. Cardiomegaly. 3. Prominence of pulmonary vasculature and diffuse lung markings could indicate volume overload. Electronically signed by: Farhad Mcbride M.D. 09/16/2017 4:11 PM Dictated Date/Time: 09/16/2017 4:09 PM Laboratory Results 09/16/17 14:40 Red Blood Count 3.92, Mean Corpuscular Volume 90.8, Mean Corpuscular Hemoglobin 29.8, Mean Corpuscular Hemoglobin Concent 32.9, Mean Platelet Volume 9.0, Neutrophils (%) (Auto) 80.4, Lymphocytes (%) (Auto) 11.1, Monocytes (%) (Auto) 3.8, Eosinophils (%) (Auto) 3.1, Basophils (%) (Auto) 0.1, Neutrophils # (Auto) 6.00, Lymphocytes # (Auto) 0.83, Monocytes # (Auto) 0.28, Eosinophils # (Auto) 0.23, Basophils # (Auto) 0.01 09/16/17 14:40 Test 09/16/17 14:40 09/16/17 16:30 White Blood Count 7.46 K/uL (4.8-10.8) Red Blood Count 3.92 M/uL (4.7-6.1) Hemoglobin 11.7 g/dL (14.0-18.0) Hematocrit 35.6 % (42-52) Mean Corpuscular Volume 90.8 fL (80-100) Mean Corpuscular Hemoglobin 29.8 pg (25-34) Mean Corpuscular Hemoglobin Concent 32.9 g/dl (32-36) Platelet Count 170 K/uL (130-400) Mean Platelet Volume 9.0 fL (7.4-10.4) Neutrophils (%) (Auto) 80.4 % Lymphocytes (%) (Auto) 11.1 % Monocytes (%) (Auto) 3.8 % Eosinophils (%) (Auto) 3.1 % Basophils (%) (Auto) 0.1 % Neutrophils # (Auto) 6.00 K/uL (1.4-6.5) Lymphocytes # (Auto) 0.83 K/uL (1.2-3.4) Monocytes # (Auto) 0.28 K/uL (0.11-0.59) Eosinophils # (Auto) 0.23 K/uL (0-0.5) Basophils # (Auto) 0.01 K/uL (0-0.2) RDW Standard Deviation 43.2 fL (36.4-46.3) RDW Coefficient of Variation 13.0 % (11.5-14.5) Immature Granulocyte % (Auto) 1.5 % Immature Granulocyte # (Auto) 0.11 K/uL (0.00-0.02) Prothrombin Time 12.0 SECONDS (9.0-12.0) Prothromb Time International Ratio 1.1 (0.9-1.1) Activated Partial Thromboplast Time 30.4 SECONDS (21.0-31.0) Partial Thromboplastin Ratio 1.2 Anion Gap 7.0 mmol/L (3-11) Est Creatinine Clear Calc Drug Dose 51.3 ml/min Estimated GFR () 73.3 Estimated GFR (Non- 63.3 BUN/Creatinine Ratio 13.3 (10-20) Calcium Level 8.8 mg/dl (8.5-10.1) Total Bilirubin 0.5 mg/dl (0.2-1) Direct Bilirubin 0.1 mg/dl (0-0.2) Aspartate Amino Transf (AST/SGOT) 35 U/L (15-37) Alanine Aminotransferase (ALT/SGPT) 56 U/L (12-78) Alkaline Phosphatase 195 U/L (45-117) Troponin I 0.031 ng/ml (0-0.045) Pro-B-Type Natriuretic Peptide 99302 pg/ml (0-1800) Total Protein 7.4 gm/dl (6.4-8.2) Albumin 3.1 gm/dl (3.4-5.0) Urine Color YELLOW Urine Appearance CLEAR (CLEAR) Urine pH 7.0 (4.5-7.5) Urine Specific [place] 1.019 (1.000-1.030) Urine Protein 1+ (NEG) Urine Glucose (UA) NEG (NEG) Urine Ketones NEG (NEG) Urine Occult Blood NEG (NEG) Urine Nitrite NEG (NEG) Urine Bilirubin NEG (NEG) Urine Urobilinogen NEG (NEG) Urine Leukocyte Esterase NEG (NEG) Urine WBC (Auto) 0 /hpf (0-5) Urine RBC (Auto) 10-30 /hpf (0-4) Urine Hyaline Casts (Auto) 0 /lpf (0-5) Urine Epithelial Cells (Auto) 5-10 /lpf (0-5) Urine Bacteria (Auto) NEG (NEG) Laboratory results per my review. Medications Administered Medications (Trade) Dose Ordered Sig/Nati Route Start Time Stop Time Status Last Admin Dose Admin Morphine Sulfate (MoRPHine SULFATE INJ) 4 mg NOW STAT IV 09/16/17 15:09 09/16/17 15:10 DC 09/16/17 16:16 4 MG Ondansetron HCl (Zofran Inj) 4 mg NOW STAT IV 09/16/17 15:09 09/16/17 15:10 DC 09/16/17 16:16 4 MG Hydralazine HCl (Apresoline Tab) 25 mg ONE STAT PO 09/16/17 16:18 09/16/17 16:19 DC 09/16/17 16:40 25 MG ECG Indication: other (fall) Rate (beats per minute): 91 Rhythm: other (ventricular paced) Findings: RBBB, ST depression (Septal) Change: no significant change (from 07/05/17) ED Course ED COURSE: Vital signs were reviewed and showed hypertensive and hypoxic vitals. The patients medical record was reviewed The above diagnostic studies were performed and reviewed. ED treatments and interventions as stated above. 1414: The patient was evaluated in room C11B. A complete history and physical examination was performed. 1509: Ordered Zofran Inj 4 mg IV, Morphine Sulfate Inj 4 mg IV. 1601: Upon reevaluation, the patient is resting.I discussed my findings with the patient and his family and they understand and agree with the treatment plan. Based on the patients age, coexisting illnesses, exam and lab findings the decision to treat as an inpatient was made. The patient remained stable while under my care. The patient will be evaluated for further management. 1606: I reviewed the patient's case with Dr. Javier Lua health and safety inspector. He will evaluate the patient for further management. 1618: Ordered Apresoline Tab 25 mg PO. Medical Decision Differential diagnoses include major intracranial, cervical, spinal, thoracic, abdominal, pelvic and neurologic injury. Fracture, contusion, sprain, strain, laceration, abrasions included as well. Patient is a 77-year-old male who presents to ER with for altered mental status/confusion. Patient has a history of a previous aneurysm but denies any recent headache since this past . notes that this morning he was unable to get out of bed as he did not remember how to do this. No focal deficit which is new. CBC all BMP LFTs and bilirubin was unremarkable. Troponin was detectable but not positive. BMP was elevated at 12,000. CT of the head and cervical spine was unremarkable. X-rays of the pelvis, femur and chest x-ray show mild pulmonary edema. He was hypoxic on the ER. I do favor is secondary to CHF which she has a history of. Patient was admitted to internal medicine with hypoxia secondary to CHF and altered mental status. UA was pending at this time. Medication Reconcilliation Current Medication List: was personally reviewed by me Blood Pressure Screening Patient's blood pressure: Elevated blood pressure Consults Time Called: 1600 Consulting Physician: Dr. Javier Lua health and safety inspector Returned Call: 1606 I reviewed the patient's case with Dr. Javier Lua health and safety inspector. He will evaluate the patient for further management. Impression Primary Impression: Fall Additional Impressions: Altered mental status CHF (congestive heart failure) Scribe Attestation The scribe's documentation has been prepared under my direction and personally reviewed by me in its entirety. I confirm that the note above accurately reflects all work, treatment, procedures, and medical decision making performed by me. Departure Information Dispostion Being Evaluated By Hospitalist Referrals Xavi Moreno M.D.([facility]) (PCP) Patient Instructions [facility] Problem Qualifiers Primary Impression: Fall Encounter type: initial encounter Qualified Codes: W19.XXXA - Unspecified fall, initial encounter Additional Impressions: Altered mental status Altered mental status type: unspecified Qualified Codes: R41.82 - Altered mental status, unspecified CHF (congestive heart failure) Congestive heart failure type: unspecified congestive heart failure type Congestive heart failure chronicity: unspecified congestive heart failure chronicity Qualified Codes: I50.9 - Heart failure, unspecified
[2017-09-16] MEDS: HEPARIN SOD 5000 UNIT/0.5 ML CARP SQ SCH (21:44)
[2017-09-17] VITALS (9 sets, daily range): BP systolic 113–136; BP diastolic 64–77; PULSE 59–76; TEMP 36.7–37.3; O2SAT 94–97
[2017-09-17 05:52] LABS: HEMATOCRIT 32.7 % (42-52); MEAN CELL VOLUME 91.1 fL (80-100); MEAN CORPUSCULAR HGB CONC 31.8 g/dl (32-36); MEAN PLATELET VOLUME 9.1 fL (7.4-10.4); PLATELET COUNT 187 K/uL (130-400); RED BLOOD COUNT 3.59 M/uL (4.7-6.1); WHITE BLOOD COUNT 7.15 K/uL (4.8-10.8)
[2017-09-17 06:27] LABS: BUN/CREATININE RATIO 16.3 (10-20); CALCIUM 8.7 mg/dl (8.5-10.1); CREATININE 1.28 mg/dl (0.60-1.40); MAGNESIUM 2.1 mg/dl (1.8-2.4); POTASSIUM 3.7 mmol/L (3.5-5.1)
[2017-09-17] MEDS: FINASTERIDE 5 MG TAB PO SCH (07:49)
[2017-09-17] MEDS: LEVETIRACETAM 500 MG TAB PO SCH ×2 (07:49→20:52)
[2017-09-17] MEDS: DOCUSATE SODIUM 100 MG CAP PO SCH ×2 (07:49→20:43)
[2017-09-17] MEDS: CEROVITE ADV FORMULA TAB PO SCH (07:50)
[2017-09-17] MEDS: POTASSIUM CHLORIDE 10 MEQ TABCR PO SCH (07:50)
[2017-09-17] MEDS: ROSUVASTATIN CALCIUM 10 MG TAB PO SCH (07:50)
[2017-09-17] MEDS: LOSARTAN POTASSIUM 50 MG TAB PO SCH (07:50)
[2017-09-17] MEDS: HEPARIN SOD 5000 UNIT/0.5 ML CARP SQ SCH ×2 (07:52→20:46)
[2017-09-17] MEDS ORDERED: CARVEDILOL 25 MG TAB PO SCH (09:00)
[2017-09-17] MEDS ORDERED: AMIODARONE IV BOLUS / DRIP IV STA (10:05)
[2017-09-17] MEDS ORDERED: POTASSIUM CHLORIDE PWD 20 MEQ PACK PO ONE ×2 (10:15→14:00)
[2017-09-17] MEDS ORDERED: METOPROLOL TARTRATE 1 MG/ML VIAL IV STA (10:37)
[2017-09-17 10:44] LABS: CKMB/CK RATIO 1.5 (0-3.0)
[2017-09-17] MEDS ORDERED: FUROSEMIDE 40 MG TAB PO ONE (11:07)
[2017-09-17] MEDS: MAGNESIUM OXIDE 400 MG TAB PO SCH (11:27)
[2017-09-17] MEDS: SERTRALINE HCL 50 MG TAB PO SCH (11:27)
--- NOTE | 2017-09-17 11:35 | Progress Note ---
Internal Med Progress Note Date of Service: Sep 17, 2017. Provider Documentation: SUBJECTIVE: Seen and examined at bedside States having dizziness Had 33 beats of Vtach this morning Got pacemaker Interrogation Denies chest pain, SOB, abd pain Oriented, mental status seemed to be at baseline Chronic expressive aphasia, poor historian No family at bedside OBJECTIVE: Vital Signs-as noted below Physical Exam: General Appearance:Moderately built and nourished, no apparent distress Head: normocephalic, Atraumatic Eyes: normal inspection, EOMI, PERRL Neck: supple, Trachea midline Respiratory/Chest: Normal breath sounds, CTA Cardiovascular: S1, S2, No murmur Abdomen/GI:Soft, Non tender, Bowel sounds present Extremities/Musculoskelatal:normal inspection, 1+ B/L edema Neurologic/Psych:grossly no focal neurological deficits Skin: normal color, warm Lab data as noted below. ASSESSMENT & PLAN: Patient is a 77 yr old male with a complex past medical history including CAD s/ p CABG and stents, hx. of complete heart block s/p pacemaker in situ, chronic severe cardiomyopathy and systolic CHF with EF around 25%, HTN, HLD, hx. of CVA , hx. of brain aneurysm, prior hx. of colorectal cancer s/p resection/chem/ radiation who presents with few weeks history of worsening confusion, weakness, fall, and worsening shortness of breath, orthopnea SVT Acute on Chronic Systolic CHF likely secondary to above severe ischemic cardiomyopathy with EF ~ 25% Pacemaker Interrogation done on 09/17/17 Continue Lasix increased to 40mg daily CXR Trace pleural effusion, Prominence of pulmonary vasculature and diffuse lung markings S/P IV lasix yesterday Monitor I/OS, daily weight Appreciate Cardiology Input Coreg changed to metoprolol QTC prolongation: avoid QTC prolonging meds Monitor electrolytes Weakness Fall Fall likely secondary to dizziness induced by rhythm issues Fall precautions Check orthostatics PT/OT Altered Mental Status Hx. of Aneurysm as per , he is altered from baseline chronic expressive aphasia reports having headaches for the past few weeks seen by neurosurgery at [place]: planned to have DSA for eval of R MCA aneurysm consulted neurology CAD s/p CABG Denies chest pain Troponin X 3: negative continue home medications: aspirin, plavix, statin, b-rena HTN Stable continue current meds DVT px heparin SQ Code Status: FULL CODE Disposition: To be determined Vital Signs: Date Time Temp Pulse Resp B/P (MAP) Pulse Ox O2 Delivery O2 Flow Rate FiO2 09/18/17 08:00 Nasal Cannula 2.0 09/18/17 07:53 36.5 65 20 163/78 (106) 97 Room Air 09/18/17 04:10 36.7 68 18 146/80 (102) 95 Nasal Cannula 3.0 09/18/17 04:00 Room Air 09/17/17 23:59 Room Air 09/17/17 23:32 37.2 67 18 135/77 (96) 95 Nasal Cannula 3.0 09/17/17 20:00 95 Nasal Cannula 2.0 09/17/17 19:09 36.8 76 16 129/72 (91) 96 Room Air 09/17/17 16:00 Nasal Cannula 2.0 09/17/17 15:35 36.9 60 16 133/74 (93) 94 Room Air 09/17/17 12:07 36.7 59 18 113/67 (82) 96 Room Air 09/17/17 12:00 96 Nasal Cannula 2.0 09/17/17 10:57 60 Lab Results: Results Past 24 Hours Test 09/17/17 09:40 09/17/17 11:17 09/17/17 16:22 09/17/17 20:36 Range/Units Total Creatine Kinase 81 39-308 U/L Creatine Kinase MB 1.2 0.5-3.6 ng/ml Creatine Kinase MB Ratio 1.5 0-3.0 Troponin I 0.034 0-0.045 ng/ml Bedside Glucose 133 146 257 70-99 mg/dl Test 09/18/17 05:03 Range/Units Hemoglobin 10.9 14.0-18.0 g/dL Hematocrit 33.8 42-52 % Sodium Level 141 136-145 mmol/L Potassium Level 4.7 3.5-5.1 mmol/L Chloride Level 103 98-107 mmol/L Carbon Dioxide Level 31 21-32 mmol/L Anion Gap 7.0 3-11 mmol/L Blood Urea Nitrogen 28 7-18 mg/dl Creatinine 1.44 0.60-1.40 mg/dl Est Creatinine Clear Calc Drug Dose 39.5 ml/min Estimated GFR () 53.5 Estimated GFR (Non- 46.2 BUN/Creatinine Ratio 19.2 10-20 Random Glucose 127 70-99 mg/dl Calcium Level 8.9 8.5-10.1 mg/dl Magnesium Level 2.3 1.8-2.4 mg/dl
--- NOTE | 2017-09-17 12:44 | CARDIOLOGY CONSULTATION ---
DATE OF CONSULTATION: 09/17/2017 CONSULTATION REQUESTED BY: Dr. Herrera. REASON FOR CONSULTATION: Acute decompensated systolic heart failure. HISTORY OF PRESENT ILLNESS: Mr. Quan is a very pleasant, yet very medically complex 77-year-old gentleman who presented to [facility] on 09/16/2017 with a report of increasing confusion, weakness, fall and shortness of breath as per the patient's . The patient initially was not very verbal, was responding yes or no to some but not all questions and the majority of the history was provided by his . The patient did seem to be rather volume overload at that time. He was admitted to telemetry and cardiology was consulted. The patient was seen and examined on 09/17/2017 after a 32-beat run of sustained ventricular tachycardia that was asymptomatic and found on telemetry. Currently, the patient is much more verbal and responding appropriately to questions in full sentences. He states that right now, he just feels weak. 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 Other than that, he denies any chest pain, shortness of breath, palpitations, lightheadedness, dizziness or syncope. Of note, the patient is scheduled for neurosurgery on September 20 at [place] for digital subtraction angiography of a right MCA aneurysm. PAST SURGICAL HISTORY: 1. Coronary artery bypass grafting surgery x2 in 2001 with a DIAZ to the LAD and vein graft to the circumflex. 2. Drug-eluting stent placement to the RCA in 2013 for patent grafts at that time. 3. Dual chamber permanent pacemaker placement, status post BiV upgrade in June 2017 with refusal of ICD lead placement at that time. 4. Cholecystectomy. 5. Prostate biopsy. 6. Partial colectomy. 7. Appendectomy. 8. Tonsil and adenoidectomy. 9. Hernia repair. 10. History of ileostomy closure. MEDICAL ILLNESSES: 1. Coronary artery disease status post CABG and PCI. 2. Ischemic cardiomyopathy, EF as low as 15%-20%. 3. Sick sinus syndrome, status post permanent pacemaker placement. 4. 100% RV pacing, status post BiV placement upgrade with refusal of ICD lead. 5. Right MCA aneurysm. 6. Diabetes. 7. Dyslipidemia. 8. GERD. 9. Hypertension. 10. Chronic left bundle branch block. FAMILY HISTORY: Noncontributory. SOCIAL HISTORY: The patient has remote tobacco use history. Denies any alcohol or recreational drug use. He is and lives at home with his . He has 3 children. REVIEW OF SYSTEMS: As per HPI, all other review of systems reviewed and negative at this time. ALLERGIES: 1. THE PATIENT HAS A CHART HISTORY OF IODINE ALLERGY, CAUSING LARYNGEAL EDEMA. 2. TRAMADOL. 3. CODEINE. 4. PLENDIL. MEDICATIONS AN OUTPATIENT: 1. Coreg 25 mg p.o. q.a.m. and 37.5 mg q.p.m. 2. Crestor 10 mg daily. 3. Hydralazine 25 mg p.o. t.i.d. 4. Losartan 100 mg daily. 5. Lasix 20 and 10 mg alternating dosages. 6. Proscar daily. 7. Zoloft daily. 8. Keppra b.i.d. 9. Plavix 75 mg daily. 10. Aspirin 81 mg daily. PHYSICAL EXAMINATION: VITALS: Temperature 36.9, pulse 62, respiratory rate 12, and blood pressure 123/66. GENERAL: Awake, alert, and oriented x3. Answering questions appropriately with slow verbal response, but appropriate. HEENT: Normocephalic and atraumatic with a mask-like facies. Extraocular muscles intact. Anicteric sclerae. Moist mucous membranes. NECK: No JVD and no bruit. CARDIOVASCULAR: Regular. Positive S4. Normal S1 and S2. No S3. 3/6 mid to late systolic ejection murmur, greatest at the right sternal border second intercostal space with radiation to bilateral carotids. No rubs. PULMONARY: Scant diffuse rhonchi with bibasilar crackles. No wheezing. ABDOMEN: Bowel sounds x4. Soft. No rebound, guarding, or tenderness. No organomegaly. EXTREMITIES: Trace bilateral pitting lower extremity edema. No clubbing or cyanosis. +2 pedal pulses bilaterally. SKIN: Warm and dry. TEST RESULTS: Telemetry monitoring reveals a 32-beat run of ventricular tachycardia at approximately 150 beats per minute. A 12-lead EKG performed in the Emergency Department independently reviewed at this time shows normal sinus rhythm with ventricular pacing at 91 beats per minute, QTC of 492 milliseconds. Repeat EKG today shows a QTC of 554 milliseconds with atrial pacing, LABORATORY STUDIES OF SIGNIFICANCE: Sodium 139, potassium 3.7, BUN 21, and creatinine 1.3. Chest x-ray independently reviewed at this time shows vascular congestion. IMPRESSION: 1. Acute decompensated systolic heart failure. 2. Sustained ventricular tachycardia. 3. Ischemic cardiomyopathy. 4. Right MCA aneurysm with planned intervention on the . 5. Coronary artery disease. RECOMMENDATIONS: It was my pleasure to see Mr. Quan in consultation today. The first concern obviously is his ventricular tachycardia, especially since he refused ICD placement at the time of his pacemaker upgrade. So, unfortunately at this time with his prolonged QTC interval and his underlying ischemic cardiomyopathy, I do not believe it would be safe to add any antiarrhythmics at this time, especially given his IODINE ALLERGY, which makes him not a candidate for amiodarone. So, as stated at this time, I will change his Coreg to metoprolol tartrate for increased beta blockade. He will be given 5 mg IV x1 now and then 25 mg p.o. q. 6 hours. His potassium will also be supplemented and it should be maintained above 4. Otherwise, he does seem some slight vascular congestion, so I will give him Lasix 40 p.o. x1 now and again his potassium will be supplemented. I believe the most prudent course of action at this point would be to medically optimize him, so that he can undergo his planned procedure in [place] on the . So, from a cardiac standpoint, as long as we were able to suppress any further ventricular tachycardia and he diureses with improvement of shortness of breath, then I see no reason not to proceed with the procedure. Obviously, he would be high risk given his underlying cardiac history, but no further cardiac testing or intervention would further lower that risk and for his quality of life, I do not believe the aneurysm repair can be avoided at this point. Thank you very much for allowing me to participate in the care of your patient.
--- NOTE | 2017-09-17 14:20 | CONSULTATION REPORT ---
DATE OF CONSULTATION: 09/17/[address] Baez. Angelo is 77 years old, he is patient of Dr. Xavi Moreno, has a complex past medical history including coronary artery bypass grafting post CABG with stents, history of complete heart block post pacemaker in situ, chronic severe cardiomyopathy, systolic congestive heart failure with reduced ejection fraction of 25%, hypertension, dyslipidemia, type 2 diabetes, history of left brain CVA and a brain aneurysm, the latter is being evaluated at [facility] in the future with a digital subtraction angiography study. He has also had colorectal cancer post resection, radiation and over the past week has had worsening confusion, weakness, periodic falls and alot of this has really emerged following his stroke in 2016 with expressive aphasia and right hemiparesis. Over the past week there has been some question about increasing confusion. He has been talking about headaches and he again is scheduled to have a digital subtraction angiography study to follow up on the right MCA aneurysm, which was actually planned for this Monday. In addition, he has had some shortness of breath at night, diminished energy, some swelling in the lower extremities and apparently fell backwards, complained about right hip pain and was finally brought into the hospital by his . Neurology has been consulted, I suppose because of the confusion and the history of aneurysm. PAST MEDICAL HISTORY: He has a past medical history as outlined above, which includes the AV block, permanent pacemaker, congestive cardiomyopathy with reduced ejection fraction, BPH, bilateral carotid disease with moderate stenoses, coronary artery disease post stenting, type 2 diabetes, dyslipidemia, GERD, skin cancer, hypertension, left bundle branch block, malignant neoplasm of the colorectal area, chronic seizure disorder-possibly post cva-on [facility], history of ileostomy, colon resection, cardiac pacemaker insertion, cholecystectomy, coronary artery bypass grafting, shoulder surgery, a T&A in the past and now the aneurysm that is being followed. FAMILY HISTORY: Reveals coronary artery bypass in his brother. Cancer in an uncle, diabetes in his mother, gallbladder disease and hypertension in the mother as well and multiple myeloma in his father. SOCIAL HISTORY: Reveals him to be a former smoker. He does not consume ethanol. He does not use tobacco products. He lives with his . IMMUNIZATIONS: Up-to-date. There is no history of drug resistant organisms. ALLERGIES: HE HAS EXTENSIVE DRUG ALLERGIES TO IODINE, TRAMADOL, OXYCODONE, FELODIPINE, ANCELMO INHIBITORS, AND CODEINE. CURRENT MEDICATIONS: At home include aspirin, Coreg, Plavix, coenzyme Q10, finasteride, Lasix, hydralazine, Keppra 500 twice a day for the seizure disorder, magnesium oxide, multiple vitamins, potassium chloride, prednisone 50 mg as directed as needed, lovastatin, and sertraline. PRN medications include acetaminophen, hyoscyamine sulfate, nitroglycerin, nystatin and oxycodone immediate release tablets as needed for pain. REVIEW OF SYSTEMS: Pretty much as recorded above. Reveals the increasing confusion, fatigue, lethargy, frequent falls but otherwise no new specific issues referable to head, eyes, ears, nose and throat, cardiovascular, pulmonary, gastrointestinal, genitourinary, and musculoskeletal systems. PHYSICAL EXAMINATION: VITAL SIGNS: 157/83 blood pressure, pulse was 100, respirations were 16. GENERAL: He did not appear to be in any acute distress. There was no evidence for cranial trauma. HEENT: Unremarkable. LUNGS: Clear. HEART: Had a regular rhythm with occasional ectopic beats. ABDOMEN: Soft, nontender. EXTREMITIES: Free of edema. NEUROLOGIC: Today, he is actually really well oriented with the exception of the date. He cannot tell me much about what has been happening at home however. He has somewhat of a dazed look. The speech is slightly dysarthric and he at times has difficulty comprehending what the examiner is saying and has some mild issues with naming objects readily in the room. 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 He has right upper motor neuron facial paresis. There is no visual field cut, facial sensation appears to be normal. Speech again is slightly dysarthric with minor aphasic tendencies. There is a mild degree of paresis of the right arm with some drift and pronation sign. Increased tone, increased reflexes, a positive Mica sign and in the right leg there is a slight degree of clumsiness of rapid repetitive motions but the toe sign is down. Reflexes are generally brisk in both lower extremities. The left toe is flexor. Sensory examination according to the patient is intact to all primary modalities including vibration, light touch and temperature. Imaging studies have shown only a degree of leukoencephalopathy and the cervical CT scan suggests that there may be a significant disc displacement anteriorly at C3-C4 although I had trouble downloading the images to assess this. Laboratory studies have been largely unremarkable. He does have a normal white count and a left shift. Basic chemistry screen appears to be normal. He did have a few sustained beats of ventricular tachycardia however and he has been now transferred to the unit from the floor. At this point certainly the periods of ventricular tachycardia could explain some of his near syncope and falls. I am not sure if neurology has a lot more to offer here. He has a history of seizure disorder, but nothing that I can glean from his history, suggests that he has had seizure activity, although nonconvulsive seizures might theoretically produce some episodic confusion. He does not seem to have a toxic or metabolic encephalopathy. Urinalysis is clean and only does have some red cells in the urine. There is no evidence for pneumonitis that I can tell, although he does have an old left basilar atelectasis and left pleural effusion. There is also some subtle evidence for volume overload. At this point, neurology is going to not recommend any changes in treatment. We are going to check an EEG just to be sure there is no evidence of some nonconvulsive seizure activity. We will check with him tomorrow to see what cardiology has to say about the ventricular tachyarrhythmias and unfortunately he is going to have to be rescheduled, I believe for the digital subtraction angiographic study unless he turns things around a bit and is little more stable and able to be discharged to home. We may need physical therapy, occupational therapy, etc. to evaluate him and conceivably he might need some stay at rehab, as I think his care at home is getting increasingly difficult for his . Again, we will check back tomorrow. LIZETT
[2017-09-17] MEDS: METOPROLOL TARTRATE 25 MG TAB PO SCH (18:03)
[2017-09-17] MEDS: CLOPIDOGREL BISULFATE 75 MG TAB PO SCH (20:42)
[2017-09-17] MEDS: ASPIRIN 81 MG ECTAB PO SCH (20:43)
[2017-09-18] VITALS (8 sets, daily range): BP systolic 106–163; BP diastolic 66–80; PULSE 65–102; TEMP 36.5–37; O2SAT 93–97
[2017-09-18 05:20] LABS: HEMATOCRIT 33.8 % (42-52)
[2017-09-18 05:51] LABS: BUN/CREATININE RATIO 19.2 (10-20); CALCIUM 8.9 mg/dl (8.5-10.1); CREATININE 1.44 mg/dl (0.60-1.40); MAGNESIUM 2.3 mg/dl (1.8-2.4); POTASSIUM 4.7 mmol/L (3.5-5.1)
[2017-09-18] MEDS: METOPROLOL TARTRATE 25 MG TAB PO SCH ×3 (06:00→20:15)
[2017-09-18] MEDS: DOCUSATE SODIUM 100 MG CAP PO SCH ×2 (07:55→20:14)
[2017-09-18] MEDS: FUROSEMIDE 40 MG TAB PO SCH (07:56)
[2017-09-18] MEDS: POTASSIUM CHLORIDE 10 MEQ TABCR PO SCH (07:56)
[2017-09-18] MEDS: LOSARTAN POTASSIUM 50 MG TAB PO SCH (07:57)
[2017-09-18] MEDS: CEROVITE ADV FORMULA TAB PO SCH (07:58)
[2017-09-18] MEDS: ROSUVASTATIN CALCIUM 10 MG TAB PO SCH (07:58)
[2017-09-18] MEDS: FINASTERIDE 5 MG TAB PO SCH (07:58)
[2017-09-18] MEDS: HEPARIN SOD 5000 UNIT/0.5 ML CARP SQ SCH ×2 (08:00→20:18)
[2017-09-18] MEDS ORDERED: FUROSEMIDE 40 MG TAB PO SCH (09:00)
[2017-09-18] MEDS: LEVETIRACETAM 500 MG TAB PO SCH ×2 (09:24→20:19)
[2017-09-18] MEDS ORDERED: METOPROLOL TARTRATE 25 MG TAB PO ONE (10:00)
--- NOTE | 2017-09-18 10:08 | Progress Note ---
Internal Med Progress Note Date of Service: Sep 18, 2017. Provider Documentation: SUBJECTIVE: Seen and examined at bedside States feeling tired "I don't know" for most questions asked Has some dizziness Rhythm is paced with few PVCs on monitor No recurrence of Vtach Got pacemaker Interrogation yesterday Denies chest pain, SOB, abd pain Oriented, mental status seemed to be at baseline Chronic expressive aphasia, poor historian No family at bedside OBJECTIVE: Vital Signs-as noted below Physical Exam: General Appearance:Moderately built and nourished, no apparent distress Head: normocephalic, Atraumatic Eyes: normal inspection, EOMI, PERRL Neck: supple, Trachea midline Respiratory/Chest: Normal breath sounds, CTA Cardiovascular: S1, S2, No murmur Abdomen/GI:Soft, Non tender, Bowel sounds present Extremities/Musculoskelatal:normal inspection, 1+ B/L edema Neurologic/Psych:grossly no focal neurological deficits Skin: normal color, warm Lab data as noted below. ASSESSMENT & PLAN: Patient is a 77 yr old male with a complex past medical history including CAD s/ p CABG and stents, hx. of complete heart block s/p pacemaker in situ, chronic severe cardiomyopathy and systolic CHF with EF around 25%, HTN, HLD, hx. of CVA , hx. of brain aneurysm, prior hx. of colorectal cancer s/p resection/chem/ radiation who presents with few weeks history of worsening confusion, weakness, fall, and worsening shortness of breath, orthopnea SVT Acute on Chronic Systolic CHF likely secondary to above severe ischemic cardiomyopathy with EF ~ 25% Pacemaker Interrogation done on 09/17/17 S/P IV Lasix Continue PO Lasix increased to 40mg daily CXR Trace pleural effusion, Prominence of pulmonary vasculature and diffuse lung markings Refused pacemaker update to ICD in the past Monitor I/OS, daily weight Appreciate Cardiology Input Coreg changed to metoprolol QTC prolongation: avoid QTC prolonging meds Monitor electrolytes No recurrence of VT since yesterday Antiarrhythmic/Amiodarone not an option secondary to Iodine allergy and QTC prolongation Continue current management Weakness/Fall Fall likely secondary to dizziness induced by rhythm issues Fall precautions Check orthostatics PT/OT Altered Mental Status Hx. of Aneurysm as per , he is altered from baseline chronic expressive aphasia reports having headaches for the past few weeks seen by neurosurgery at [place]: planned to have DSA for eval of R MCA aneurysm Appreciate neurology Input EEG pending Levetiracetam levels pending Continue Keppra CAD s/p CABG Denies chest pain Troponin X 3: negative continue home medications: aspirin, plavix, statin, b-rena HTN Stable continue current meds Elevated Creatinine: Cr slightly up secondary to diuretics Monitor renal function DVT px heparin SQ Code Status: FULL CODE Disposition: To be determined May need to be transferred to [place] for Intervention 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 services 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 agent consulted Vital Signs: Date Time Temp Pulse Resp B/P (MAP) Pulse Ox O2 Delivery O2 Flow Rate FiO2 09/18/17 08:00 Nasal Cannula 2.0 09/18/17 07:53 36.5 65 20 163/78 (106) 97 Room Air 09/18/17 04:10 36.7 68 18 146/80 (102) 95 Nasal Cannula 3.0 09/18/17 04:00 Room Air 09/17/17 23:59 Room Air 09/17/17 23:32 37.2 67 18 135/77 (96) 95 Nasal Cannula 3.0 09/17/17 20:00 95 Nasal Cannula 2.0 09/17/17 19:09 36.8 76 16 129/72 (91) 96 Room Air 09/17/17 16:00 Nasal Cannula 2.0 09/17/17 15:35 36.9 60 16 133/74 (93) 94 Room Air 09/17/17 12:07 36.7 59 18 113/67 (82) 96 Room Air 09/17/17 12:00 96 Nasal Cannula 2.0 09/17/17 10:57 60 Lab Results: Results Past 24 Hours Test 09/17/17 11:17 09/17/17 16:22 09/17/17 20:36 09/18/17 05:03 Range/Units Bedside Glucose 133 146 257 70-99 mg/dl Hemoglobin 10.9 14.0-18.0 g/dL Hematocrit 33.8 42-52 % Sodium Level 141 136-145 mmol/L Potassium Level 4.7 3.5-5.1 mmol/L Chloride Level 103 98-107 mmol/L Carbon Dioxide Level 31 21-32 mmol/L Anion Gap 7.0 3-11 mmol/L Blood Urea Nitrogen 28 7-18 mg/dl Creatinine 1.44 0.60-1.40 mg/dl Est Creatinine Clear Calc Drug Dose 39.5 ml/min Estimated GFR () 53.5 Estimated GFR (Non- 46.2 BUN/Creatinine Ratio 19.2 10-20 Random Glucose 127 70-99 mg/dl Calcium Level 8.9 8.5-10.1 mg/dl Magnesium Level 2.3 1.8-2.4 mg/dl
--- NOTE | 2017-09-18 10:21 | Cardiology Follow-Up ---
Subjective Subjective Date of Service: Sep 18, 2017. Pt evaluation today including: conversation w/ patient, physical exam, chart review, lab review, review of studies, review of inpatient medication list Additional Details: Pt seen and examined, states that he's doing ok today. Still frustrated with UE weakness. Denies cp, sob, palpitations, lightheadedness or dizziness. Tele reviewed: sinus rhythm/v-pacing without significant ventricular ecotpy/ arrhythmias overnight Problem List Medical Problems: (1) Altered mental status Status: Acute (2) Anxiety Status: Acute (3) CHF (congestive heart failure) Status: Acute (4) Closed right humeral fracture Status: Acute (5) Constipation Status: Acute (6) Dehydration Status: Acute (7) Dyspnea on exertion Status: Acute (8) Headache Status: Acute (9) History of CVA (cerebrovascular accident) Status: Acute (10) Hyperglycemia Status: Acute (11) Hypomagnesemia Status: Acute (12) Left shoulder pain Status: Acute (13) LLL pneumonia Status: Acute (14) Pneumonia Status: Acute (15) Precordial chest pain Status: Acute (16) Proctitis Status: Acute (17) Rib pain on right side Status: Acute (18) Seizure Status: Acute (19) Shortness of breath Status: Acute (20) Unresponsive episode Status: Acute (21) Weakness Status: Acute (22) Weakness Status: Acute Review of Systems Respiratory: No see HPI, No cough, No sputum, No wheezing, No shortness of breath, No dyspnea on exertion, No dyspnea at rest, No hemoptysis, No problem reported Cardiac: No see HPI, No chest pain, No orthopnea, No PND, No edema, No claudication, No palpitations, No problem reported Neurologic: + memory loss, + problem reported Objective Vital Signs Last Vital Signs Documentation Date Time Temp Pulse Resp B/P (MAP) Pulse Ox O2 Delivery O2 Flow Rate FiO2 09/18/17 08:00 Nasal Cannula 2.0 09/18/17 07:53 36.5 65 20 163/78 (106) 97 Physical Exam: General Appearance: WD/WN, no apparent distress, + thin Eyes: bilateral eyes normal inspection, bilateral eyes PERRL, bilateral eyes EOMI ENT: normal ENT inspection, pharynx normal, + pertinent finding (hard of hearing) Neck: supple, no adenopathy, thyroid normal, no JVD, no carotid bruits, trachea midline Respiratory/Chest: lungs clear, no respiratory distress, no accessory muscle use Cardiovascular: regular rate, rhythm, no edema, no JVD, no murmur, + gallop/S4 Abdomen: normal bowel sounds, non tender, soft, no organomegaly Extremities: normal inspection, no pedal edema, no calf tenderness Neurologic/Psychiatric: congressional [place] aide II-XII nml as tested, no motor/sensory deficits, alert, normal mood/affect, oriented x 3, + motor weakness Skin: normal color, warm/dry, no rash Lymphatic: no adenopathy Assessment and Plan 1. sustained ventricular tachycardia resolved after changing coreg to metoprolol will change metoprolol to 50mg bid for now patient declined ICD upgrade no antiarrhythmics given underlying iodine allergy and QTc prolongation 2. systolic heart failure stable cont daily po lasix 3. MCA aneurysm repair planned on 09/20 would prefer to monitor for another 24 hours if no further arrhythmias then will d/c to home for scheduled procedure on if any further episodes overnight then will likely need transfer to [facility] on
--- NOTE | 2017-09-18 10:28 | ELECTROENCEPHALOGRAPH REPORT ---
REQUESTING: Petr Lopez MD. CLINICAL DIAGNOSIS: Episodic confusion with a known seizure disorder. ELECTROENCEPHALOGRAM DIAGNOSIS: Mildly diffusely abnormal EEG during wakefulness. DESCRIPTION OF TRACING: This EEG was done as a bedside recording with a simultaneous video analysis of patient movement and behavior. Photic stimulation was performed. Drowsiness and light sleep were not obtained. Under these conditions, there is evidence for a background rhythm in the upper theta range around 8 Hz in maximum frequency with rare emergence of frequencies at 9 Hz in the lower alpha range. This is maximum posterior head regions bilaterally symmetrical. Polymorphic moderate amplitude lower frequency theta activity intermixed with some isolated waveforms in the delta range is seen over the central regions in a symmetrical fashion but spreading anteriorly to some degree. Beta activity is seen bifrontally. Photic stimulation provoked some minimal driving response without a photomyogenic or photoparoxysmal component. At no time during the waking tracing is there evidence for a clearcut potentially epileptogenic activity in the form of polyspike or spike wave bursts, focal sharp waves or focal spikes. INTERPRETATION: This EEG indicates evidence for mild to minimal nonspecific generalized encephalopathy without lateralizing features and without associated potentially epileptogenic activity.
[2017-09-18] MEDS: SERTRALINE HCL 50 MG TAB PO SCH (11:38)
[2017-09-18] MEDS: MAGNESIUM OXIDE 400 MG TAB PO SCH (11:38)
--- NOTE | 2017-09-18 14:18 | Neurology Progress Notes ---
Neurology Progress Note Date of Service Sep 18, 2017. Amy Stephens is a 77 year old male with PMH CAD s/p CABG and stents, heart block s/p pacemaker in situ, chronic severe cardiomyopathy and systolic CHF with EF around 25%, HTN, HLD, DM2, CVA, R MCA ANR, colorectal cancer s/p resection/chem /radiation - presents with a few week history of worsening confusion, weakness and a fall. He states since his stroke in 2016, he has had difficulty with expressive aphasia he thinks everything has gone down hill since then. He is more confused is having headaches more often, and was seen by neurosurgery at [place]. He has a an appointment (09/20/17) for angiogram. He states he does have some SOB at night. Prior to admission he was walking with his walker, and he fell backwards. He was grabbing his L hip because it was painful. Currently he is setting on bedside chair and states he has not been up and walking. denies CP, SOB, abdominal pain, N, V. Objective Date Time Temp Pulse Resp B/P (MAP) Pulse Ox O2 Delivery O2 Flow Rate FiO2 09/18/17 12:23 37.0 71 22 106/68 (81) 97 Nasal Cannula 1.0 09/18/17 12:00 Nasal Cannula 2.0 09/18/17 08:00 Nasal Cannula 2.0 09/18/17 07:53 36.5 65 20 163/78 (106) 97 Room Air 09/18/17 04:10 36.7 68 18 146/80 (102) 95 Nasal Cannula 3.0 09/18/17 04:00 Room Air 09/17/17 23:59 Room Air 09/17/17 23:32 37.2 67 18 135/77 (96) 95 Nasal Cannula 3.0 09/17/17 20:00 95 Nasal Cannula 2.0 09/17/17 19:09 36.8 76 16 129/72 (91) 96 Room Air 09/17/17 16:00 Nasal Cannula 2.0 09/17/17 15:35 36.9 60 16 133/74 (93) 94 Room Air Last 24 Hours Test 09/17/17 16:22 09/17/17 20:36 09/18/17 05:03 Bedside Glucose 146 mg/dl 257 mg/dl Hemoglobin 10.9 g/dL Hematocrit 33.8 % Sodium Level 141 mmol/L Potassium Level 4.7 mmol/L Chloride Level 103 mmol/L Carbon Dioxide Level 31 mmol/L Anion Gap 7.0 mmol/L Blood Urea Nitrogen 28 mg/dl Creatinine 1.44 mg/dl Est Creatinine Clear Calc Drug Dose 39.5 ml/min Estimated GFR () 53.5 Estimated GFR (Non- 46.2 BUN/Creatinine Ratio 19.2 Random Glucose 127 mg/dl Calcium Level 8.9 mg/dl Magnesium Level 2.3 mg/dl Imaging: This EEG indicates evidence for mild to minimal nonspecific generalized encephalopathy without lateralizing features and without associated potentially epileptogenic activity. Exam: Physical Exam: Constitutional: appearance weak frail pale Ears, Nose, Mouth and Throat: mucous membranes moist, no injection and skin normal, eyes normal Cardiovascular: normal S-1 and S-2 and regular rate and rhythm Respiratory: clear to auscultation (CTA) and no rales, rhonchi or wheeze Musculoskeletal: no peripheral edema Skin: no stigmata of neurocutaneous disease noted and normal and intact Eyes: extraocular muscles intact (EOMI) and pupils equal, round and reactive to light (PERRL) NEUROLOGIC EXAMINATION: Mental status: Alert and interactive Oriented to person Speech dysphasia, knows 2017, [facility], Trump 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 Cranial Nerves right nasolabial fold flattening, eye brow raise symmetric Sensory: light touch Coordination: finger to nose right arm unable to lift to finger Gait/Stance: Posture sitting in bed side chair Motor: right arm drift Strength: biceps triceps 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, biceps triceps hand farm 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 left 5/5 hip flex right 4/5, left 5/5 Current Inpatient Medications Medications (Trade) Dose Ordered Sig/Nati Route Start Time Stop Time Status Last Admin Dose Admin Aspirin (Ecotrin Tab) 81 mg QPM PO 09/16/17 21:00 10/16/17 20:59 09/17/17 20:43 81 MG Clopidogrel Bisulfate (plAVix TAB) 75 mg HS PO 09/16/17 21:00 10/16/17 20:59 09/17/17 20:42 75 MG Finasteride (Proscar Tab) 5 mg QAM PO 09/17/17 09:00 10/17/17 08:59 09/18/17 07:58 5 MG Hydralazine HCl (Apresoline Tab) 25 mg TID PO 09/16/17 21:00 10/16/17 20:59 09/18/17 07:57 25 MG Hyoscyamine Sulfate (Levsin Tab) 0.125 mg Q4H PRN PO 09/16/17 17:15 10/16/17 17:14 Levetiracetam (Keppra Tab) 500 mg BID PO 09/16/17 21:00 10/16/17 20:59 09/18/17 09:24 500 MG Losartan Potassium (coZAAR TAB) 100 mg QAM PO 09/17/17 09:00 10/17/17 08:59 09/18/17 07:57 100 MG Multivitamins/ Minerals (Multivitamin W/ Minerals Tab) 1 tab QAM PO 09/17/17 09:00 10/17/17 08:59 09/18/17 07:58 1 TAB Nitroglycerin (Nitrostat Tab) 0.4 mg UD PRN SL 09/16/17 17:15 10/16/17 17:14 Potassium Chloride (Klor-Con M10) 10 meq DAILY PO 09/17/17 09:00 10/17/17 08:59 09/18/17 07:56 10 MEQ Rosuvastatin Calcium (Crestor Tab) 10 mg DAILY PO 09/17/17 09:00 10/17/17 08:59 09/18/17 07:58 10 MG Sertraline HCl (Zoloft Tab) 50 mg QDL PO 09/17/17 11:30 10/17/17 11:59 09/18/17 11:38 50 MG Magnesium Oxide (Mag-Ox Tab) 400 mg QDL PO 09/17/17 11:30 10/17/17 11:59 09/18/17 11:38 400 MG Morphine Sulfate (MoRPHine SULFATE INJ) 2 mg Q4 PRN IV 09/16/17 17:15 09/30/17 17:14 Docusate Sodium (coLACE CAP) 100 mg BID PO 09/16/17 21:00 10/16/17 20:59 09/18/17 07:55 100 MG Heparin Sodium (Porcine) (Heparin Sq 5000 Unit/0.5ml) 5,000 unit Q12 SQ 09/16/17 21:00 10/16/17 20:59 09/18/17 08:00 5,000 UNIT Acetaminophen (Tylenol Tab) 650 mg Q4H PRN PO 09/16/17 17:15 10/16/17 17:14 Al Hydrox/Mg Hydrox/Simethicone (Maalox Max Susp) 15 ml Q4H PRN PO 09/16/17 17:15 10/16/17 17:14 Furosemide (Lasix Tab) 40 mg QAM PO 09/18/17 09:00 10/18/17 08:59 09/18/17 07:56 40 MG Metoprolol Tartrate (Lopressor Tab) 50 mg BID PO 09/18/17 21:00 10/18/17 20:59 Impression 77 year old male with ventricular tachycardia- resolved after changing Coreg to metoprolol Plan 1. PT/OT speech for discharge needs 2. may need rehab before returning him 3. fall precautions- will need safety check for any falling hazards 4. continue aspirin 81 mg and plavix for now- no new events 5. follow up with NS in [place] for evaluation of aneurysm I have seen and discussed above patient with Dr Petr Lopez, neurology Currently back to [facility] as per and she feels she may be able to handle him at home and get him to the planned dsa study monday but on exam he is globally weak and suspect that he may need transferred by ambulance for the procedure which might be coupled with an attempt to coil the aneurysm We will get back tomorrow to assess things and may need to contact neurosurgery at [place] to try to coordinate things EEg is mildly slow no evidence for ongoing potential seizure activity and would simply continue the keppra at the current dose Petr Lopez MD
[2017-09-18] MEDS: CLOPIDOGREL BISULFATE 75 MG TAB PO SCH (20:16)
[2017-09-18] MEDS: ASPIRIN 81 MG ECTAB PO SCH (20:16)
[2017-09-19] VITALS (7 sets, daily range): BP systolic 122–161; BP diastolic 60–81; PULSE 66–84; TEMP 36.9–37.4; O2SAT 94–96
[2017-09-19 07:16] LABS: HEMATOCRIT 33.7 % (42-52); MEAN CELL VOLUME 90.1 fL (80-100); MEAN CORPUSCULAR HEMOGLOBIN 29.4 pg (25-34); MEAN CORPUSCULAR HGB CONC 32.6 g/dl (32-36); MEAN PLATELET VOLUME 9.1 fL (7.4-10.4); PLATELET COUNT 209 K/uL (130-400); RED BLOOD COUNT 3.74 M/uL (4.7-6.1); WHITE BLOOD COUNT 6.63 K/uL (4.8-10.8)
[2017-09-19 07:43] LABS: BUN/CREATININE RATIO 27.6 (10-20); CALCIUM 8.9 mg/dl (8.5-10.1); CREATININE 1.17 mg/dl (0.60-1.40); MAGNESIUM 2.3 mg/dl (1.8-2.4); POTASSIUM 4.1 mmol/L (3.5-5.1)
[2017-09-19] MEDS: LEVETIRACETAM 500 MG TAB PO SCH ×2 (08:01→20:18)
[2017-09-19] MEDS: CEROVITE ADV FORMULA TAB PO SCH (08:02)
[2017-09-19] MEDS: METOPROLOL TARTRATE 25 MG TAB PO SCH ×2 (08:02→20:22)
[2017-09-19] MEDS: HEPARIN SOD 5000 UNIT/0.5 ML CARP SQ SCH (08:03)
[2017-09-19] MEDS: POTASSIUM CHLORIDE 10 MEQ TABCR PO SCH (08:04)
[2017-09-19] MEDS: DOCUSATE SODIUM 100 MG CAP PO SCH ×2 (08:04→20:20)
[2017-09-19] MEDS: LOSARTAN POTASSIUM 50 MG TAB PO SCH (08:04)
[2017-09-19] MEDS: FUROSEMIDE 40 MG TAB PO SCH (08:05)
[2017-09-19] MEDS: FINASTERIDE 5 MG TAB PO SCH (08:05)
[2017-09-19] MEDS: ROSUVASTATIN CALCIUM 10 MG TAB PO SCH (08:05)
--- NOTE | 2017-09-19 09:15 | Cardiology Follow-Up ---
Subjective Subjective Date of Service: Sep 19, 2017. Pt evaluation today including: conversation w/ patient, physical exam, chart review, lab review, review of studies, review of inpatient medication list Additional Details: Pt seen and examined, states that he still feels week. Denies cp, sob, palpitations, lightheadedness or dizziness. Tele reviewed: sinus rhythm/v-pacing without any ventricular ectopy. Problem List Medical Problems: (1) Altered mental status Status: Acute (2) Anxiety Status: Acute (3) CHF (congestive heart failure) Status: Acute (4) Closed right humeral fracture Status: Acute (5) Constipation Status: Acute (6) Dehydration Status: Acute (7) Dyspnea on exertion Status: Acute (8) Headache Status: Acute (9) History of CVA (cerebrovascular accident) Status: Acute (10) Hyperglycemia Status: Acute (11) Hypomagnesemia Status: Acute (12) Left shoulder pain Status: Acute (13) LLL pneumonia Status: Acute (14) Pneumonia Status: Acute (15) Precordial chest pain Status: Acute (16) Proctitis Status: Acute (17) Rib pain on right side Status: Acute (18) Seizure Status: Acute (19) Shortness of breath Status: Acute (20) Unresponsive episode Status: Acute (21) Weakness Status: Acute (22) Weakness Status: Acute Review of Systems Respiratory: No see HPI, No cough, No sputum, No wheezing, No shortness of breath, No dyspnea on exertion, No dyspnea at rest, No hemoptysis, No problem reported Cardiac: No see HPI, No chest pain, No orthopnea, No PND, No edema, No claudication, No palpitations, No problem reported Neurologic: + memory loss, + problem reported Objective Vital Signs Last Vital Signs Documentation Date Time Temp Pulse Resp B/P (MAP) Pulse Ox O2 Delivery O2 Flow Rate FiO2 09/19/17 07:55 80 22 154/78 (103) 94 Room Air 09/19/17 04:00 2.0 09/19/17 03:27 36.9 Physical Exam: General Appearance: WD/WN, no apparent distress, + thin Eyes: bilateral eyes normal inspection, bilateral eyes PERRL, bilateral eyes EOMI ENT: normal ENT inspection, pharynx normal, + pertinent finding (hard of hearing) Neck: supple, no adenopathy, thyroid normal, no JVD, no carotid bruits, trachea midline Respiratory/Chest: lungs clear, no respiratory distress, no accessory muscle use Cardiovascular: regular rate, rhythm, no edema, no JVD, no murmur, + gallop/S4 Abdomen: normal bowel sounds, non tender, soft, no organomegaly Extremities: normal inspection, no pedal edema, no calf tenderness Neurologic/Psychiatric: teaching dietitian II-XII nml as tested, no motor/sensory deficits, alert, normal mood/affect, oriented x 3, + motor weakness Skin: normal color, warm/dry, no rash Lymphatic: no adenopathy Assessment and Plan 1. sustained ventricular tachycardia no further episodes with change of beta rena would cont metoprolol tartrate 50mg bid 2. systolic heart failure stable cont daily po lasix 3. MCA aneurysm repair planned on 09/20 will defer to neurology on whether patient should be transferred at this time 4. preop risk assessment patient counseled that he would be a high risk for adverse perioperative cardiovascular event but that no further intervention would further lower that risk he states that he understands, is accepting of the risk and wishes to proceed he is medically optimized from a cardiac standpoint and see no benefit in delaying procedure at this time ok to transfer or d/c to home from cardiac standpoint.
--- NOTE | 2017-09-19 10:01 | Clinical Documentation Query ---
MARCI Gu : CLINICAL DOCUMENTATION QUERY Patient is a 77 year old male admitted for evaluation and treatment of a few week history of worsening confusion, weakness, fall, and worsening shortness of breath. Hospitalist documentation includes "SVT". Per [facility] abbreviation policy, this equates only with supraventricular tachycardia, and cannot be alternatively assumed to be sustained ventricular tachycardia as described by payroll consultant. 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 Thank you. In your clinical opinion is this patient being managed for: ( ) Sustained ventricular tachycardia ( ) Not Agree ( ) Other explanation of clinical findings (Please Explain) ( ) Unable to determine (Please Define) ( ) Need to Discuss The medical record reflects the following clinical findings, treatment, and risk factors. Clinical Indicators: As above Treatment: Cardiology consulation Risk Factors: Ischemic cardiomyopathy Please clarify and document your clinical opinion in the progress notes and discharge summary. Terms such as "probable", "suspected", "likely", "questionable", "possible", or "still to be ruled out" are acceptable. IF IN AGREEMENT, YOU MUST DOCUMENT ABOVE DIAGNOSTIC STATEMENT IN DAILY PROGRESS NOTES AND DISCHARGE SUMMARY. This document is not part of the patient's record. Thank You, Arik Taylor, RN [phone]
[2017-09-19] MEDS ORDERED: MAGNESIUM HYDROXIDE SUSP 30 ML UDC PO PRN (12:00)
[2017-09-19] MEDS ORDERED: LACTULOSE SYRUP 30 GM/45 ML UDP PO PRN (12:00)
[2017-09-19] MEDS: SERTRALINE HCL 50 MG TAB PO SCH (12:40)
[2017-09-19] MEDS: MAGNESIUM OXIDE 400 MG TAB PO SCH (12:40)
--- NOTE | 2017-09-19 15:26 | Neurology Progress Notes ---
Neurology Progress Note Date of Service Sep 19, 2017. Amy Stephens is a 77 year old male with PMH CAD s/p CABG and stents, heart block s/p pacemaker in situ, chronic severe cardiomyopathy and systolic CHF with EF around 25%, HTN, HLD, DM2, CVA, R MCA ANR, colorectal cancer s/p resection/chem /radiation - presents with a few week history of worsening confusion, weakness and a fall. He states since his stroke in 2016, he has had difficulty with expressive aphasia he thinks everything has gone down hill since then. He is more confused is having headaches more often, and was seen by neurosurgery at [place]. He has a an appointment (09/20/17) for angiogram. He states he does have some SOB at night. Prior to admission he was walking with his walker, and he fell backwards. He was grabbing his L hip because it was painful. Currently he is lying in bed no current complains, he is not sure when he is getting discharged. he appears weepy. denies CP, SOB, abdominal pain, N, V Objective Date Time Temp Pulse Resp B/P (MAP) Pulse Ox O2 Delivery O2 Flow Rate FiO2 09/19/17 12:00 Room Air 09/19/17 11:52 37.0 84 18 142/63 (89) 96 09/19/17 08:00 94 Room Air 09/19/17 07:55 80 22 154/78 (103) 94 Room Air 09/19/17 04:00 Nasal Cannula 2.0 09/19/17 03:27 36.9 70 22 155/77 (103) 94 Room Air 09/19/17 00:01 Nasal Cannula 2.0 09/18/17 23:21 36.9 69 20 147/78 (101) 97 Room Air 09/18/17 20:00 Nasal Cannula 2.0 09/18/17 19:29 36.9 102 16 124/66 (85) 93 Nasal Cannula 2.0 09/18/17 17:04 94 Nasal Cannula 2.0 09/18/17 16:53 36.7 76 22 160/80 (106) 94 09/18/17 16:00 Nasal Cannula 2.0 09/18/17 15:44 36.9 69 20 147/70 (95) 95 Last 24 Hours Test 09/18/17 16:21 09/18/17 20:59 09/19/17 05:21 09/19/17 06:40 Bedside Glucose 135 mg/dl 215 mg/dl 117 mg/dl 116 mg/dl Test 09/19/17 06:52 09/19/17 11:35 White Blood Count 6.63 K/uL Red Blood Count 3.74 M/uL Hemoglobin 11.0 g/dL Hematocrit 33.7 % Mean Corpuscular Volume 90.1 fL Mean Corpuscular Hemoglobin 29.4 pg Mean Corpuscular Hemoglobin Concent 32.6 g/dl RDW Standard Deviation 42.4 fL RDW Coefficient of Variation 12.8 % Platelet Count 209 K/uL Mean Platelet Volume 9.1 fL Sodium Level 141 mmol/L Potassium Level 4.1 mmol/L Chloride Level 103 mmol/L Carbon Dioxide Level 30 mmol/L Anion Gap 8.0 mmol/L Blood Urea Nitrogen 32 mg/dl Creatinine 1.17 mg/dl Est Creatinine Clear Calc Drug Dose 48.7 ml/min Estimated GFR () 68.8 Estimated GFR (Non- 59.4 BUN/Creatinine Ratio 27.6 Random Glucose 114 mg/dl Calcium Level 8.9 mg/dl Magnesium Level 2.3 mg/dl Bedside Glucose 137 mg/dl Imaging: no new imaging Exam: Physical Exam: Constitutional: appearance nourished, pale Ears, Nose, Mouth and Throat: mucous membranes moist, no injection and skin normal, eyes normal Cardiovascular: normal S-1 and S-2 and regular rate and rhythm Respiratory: course breath sounds Musculoskeletal: no peripheral edema Skin: no stigmata of neurocutaneous disease noted and normal and intact Eyes: extraocular muscles intact (EOMI) and pupils equal, round and reactive to light (PERRL) NEUROLOGIC EXAMINATION: Mental status: Alert and interactive Oriented 2017 Oriented to person Speech fluent with no evidence of aphasia Cranial Nerves facial symmetry Coordination: finger to nose no bi pass reaching tremor Gait/Stance: Posture lying in bed Current Inpatient Medications Medications (Trade) Dose Ordered Sig/Nati Route Start Time Stop Time Status Last Admin Dose Admin Aspirin (Ecotrin Tab) 81 mg QPM PO 09/16/17 21:00 10/16/17 20:59 09/18/17 20:16 81 MG Clopidogrel Bisulfate (plAVix TAB) 75 mg HS PO 09/16/17 21:00 10/16/17 20:59 09/18/17 20:16 75 MG Finasteride (Proscar Tab) 5 mg QAM PO 09/17/17 09:00 10/17/17 08:59 09/19/17 08:05 5 MG Hydralazine HCl (Apresoline Tab) 25 mg TID PO 09/16/17 21:00 10/16/17 20:59 09/19/17 12:41 25 MG Hyoscyamine Sulfate (Levsin Tab) 0.125 mg Q4H PRN PO 09/16/17 17:15 10/16/17 17:14 Levetiracetam (Keppra Tab) 500 mg BID PO 09/16/17 21:00 10/16/17 20:59 09/19/17 08:01 500 MG Losartan Potassium (coZAAR TAB) 100 mg QAM PO 09/17/17 09:00 10/17/17 08:59 09/19/17 08:04 100 MG Multivitamins/ Minerals (Multivitamin W/ Minerals Tab) 1 tab QAM PO 09/17/17 09:00 10/17/17 08:59 09/19/17 08:02 1 TAB Nitroglycerin (Nitrostat Tab) 0.4 mg UD PRN SL 09/16/17 17:15 10/16/17 17:14 Potassium Chloride (Klor-Con M10) 10 meq DAILY PO 09/17/17 09:00 10/17/17 08:59 09/19/17 08:04 10 MEQ Rosuvastatin Calcium (Crestor Tab) 10 mg DAILY PO 09/17/17 09:00 10/17/17 08:59 09/19/17 08:05 10 MG Sertraline HCl (Zoloft Tab) 50 mg QDL PO 09/17/17 11:30 10/17/17 11:59 09/19/17 12:40 50 MG Magnesium Oxide (Mag-Ox Tab) 400 mg QDL PO 09/17/17 11:30 10/17/17 11:59 09/19/17 12:40 400 MG Morphine Sulfate (MoRPHine SULFATE INJ) 2 mg Q4 PRN IV 09/16/17 17:15 09/30/17 17:14 Docusate Sodium (coLACE CAP) 100 mg BID PO 09/16/17 21:00 10/16/17 20:59 09/19/17 08:04 100 MG Acetaminophen (Tylenol Tab) 650 mg Q4H PRN PO 09/16/17 17:15 10/16/17 17:14 Al Hydrox/Mg Hydrox/Simethicone (Maalox Max Susp) 15 ml Q4H PRN PO 09/16/17 17:15 10/16/17 17:14 Furosemide (Lasix Tab) 40 mg QAM PO 09/18/17 09:00 10/18/17 08:59 09/19/17 08:05 40 MG Metoprolol Tartrate (Lopressor Tab) 50 mg BID PO 09/18/17 21:00 10/18/17 20:59 09/19/17 08:02 50 MG Magnesium Hydroxide (Milk Of Magnesia Susp) 30 ml Q6H PRN PO 09/19/17 12:00 10/19/17 11:59 Lactulose (Chronulac Syrup) 30 gm DAILY PRN PO 09/19/17 12:00 10/19/17 11:59 Impression 77 year old male with ventricular tachycardia- resolved after changing Coreg to metoprolol Plan 1. PT/OT speech for discharge needs 2. may need rehab before returning him 3. fall precautions- will need safety check for any falling hazards 4. continue aspirin 81 mg and plavix for now- no new events 5. follow up with NS in [place] for evaluation of aneurysm after discharge 6. findings on CT neck will order ortho consult for input as to any need for intervention I have seen and discussed above patient with Dr Petr Lopez, neurology Patient seen and reviewed he is clearly depressed and cognitively impaired and too weak to return home ct of neck raises issue of potential cord compromise but exam show no myelopathy willl have spine surgery address issue so he can be cleared for discharge to an ecf/rehab facility The dsa can be held for now according to conversations held with neurosurgery by attending hospitalist. Continue the keppra for now We will sign off at this point but will be avaialable for reconsult as needed Petr Lopez MD
[2017-09-19] MEDS: ASPIRIN 81 MG ECTAB PO SCH (20:19)
[2017-09-19] MEDS: CLOPIDOGREL BISULFATE 75 MG TAB PO SCH (20:23)
[2017-09-20 04:49] VITALS: BP 150/78; PULSE 89; TEMP 36.8; O2SAT 92
[2017-09-20 06:54] LABS: BUN/CREATININE RATIO 22.9 (10-20); CALCIUM 9.1 mg/dl (8.5-10.1); CREATININE 1.2 mg/dl (0.60-1.40); MAGNESIUM 2.3 mg/dl (1.8-2.4)
[2017-09-20 07:17] VITALS: BP 174/93; PULSE 74; TEMP 36.7; O2SAT 100
[2017-09-20] MEDS: FUROSEMIDE 40 MG TAB PO SCH (09:12)
[2017-09-20] MEDS: FINASTERIDE 5 MG TAB PO SCH (09:12)
[2017-09-20] MEDS: ROSUVASTATIN CALCIUM 10 MG TAB PO SCH (09:12)
[2017-09-20] MEDS: METOPROLOL TARTRATE 25 MG TAB PO SCH ×2 (09:12→21:21)
[2017-09-20] MEDS: DOCUSATE SODIUM 100 MG CAP PO SCH ×2 (09:12→21:20)
[2017-09-20] MEDS: LEVETIRACETAM 500 MG TAB PO SCH ×2 (09:13→21:22)
[2017-09-20] MEDS: CEROVITE ADV FORMULA TAB PO SCH (09:13)
[2017-09-20] MEDS: POTASSIUM CHLORIDE 10 MEQ TABCR PO SCH (09:13)
[2017-09-20] MEDS: LOSARTAN POTASSIUM 50 MG TAB PO SCH (09:14)
--- NOTE | 2017-09-20 09:42 | Progress Note ---
Medicine Progress Note Date & Time of Visit: Sep 20, 2017 at 07:32. Subjective delayed entry date of service 09/19/17 seen resting in bed, comfortable oriented x 2, has expressive aphasia but answers questions appropriately states he feels ok denies headache, dizziness, confusion denies chest pain, dyspnea, palpitations no other symptoms Objective Last 8 Hrs Date Time Temp Pulse Resp B/P (MAP) Pulse Ox O2 Delivery O2 Flow Rate FiO2 09/20/17 07:17 36.7 74 18 174/93 (120) 100 Room Air 09/20/17 04:49 36.8 89 20 150/78 (102) 92 Room Air 09/20/17 04:00 Room Air 09/20/17 00:00 Room Air Physical Exam: General- oriented x 3, not in distress, speaks in sentences with no effort Head- atraumatic Eyes- PERRL, EOMI, anicteric ENT- oropharynx clear Neck- supple, no JVD, no adenopathy, no thyromegaly Lungs- clear to auscultation bilaterally Heart- regular rhythm; no murmur, normal rate Abdomen- normal bowel sounds, soft, nontender Extremities- no pretibial edema, no calf tenderness; peripheral pulses intact Neuro- alert, oriented x 2; PERRL, EOMI; no facial palsy; no dysarthria; (+) expressive aphasia, motor 5/5 bilaterally; no other gross focal deficits Skin- warm & dry Laboratory Results: Last 24 Hours Test 09/19/17 11:35 09/19/17 16:08 09/20/17 06:02 Bedside Glucose 137 mg/dl 108 mg/dl Sodium Level 141 mmol/L Potassium Level 4.0 mmol/L Chloride Level 105 mmol/L Carbon Dioxide Level 30 mmol/L Anion Gap 6.0 mmol/L Blood Urea Nitrogen 28 mg/dl Creatinine 1.20 mg/dl Est Creatinine Clear Calc Drug Dose 47.4 ml/min Estimated GFR () 66.7 Estimated GFR (Non- 57.6 BUN/Creatinine Ratio 22.9 Random Glucose 120 mg/dl Calcium Level 9.1 mg/dl Magnesium Level 2.3 mg/dl Assessment & Plan Patient is a 77 yr old male with a complex past medical history including CAD s/ p CABG and stents, hx. of complete heart block s/p pacemaker in situ, chronic severe cardiomyopathy and systolic CHF with EF around 25%, HTN, HLD, hx. of CVA , hx. of brain aneurysm, prior hx. of colorectal cancer s/p resection/chem/ radiation who presents with few weeks history of worsening confusion, weakness, fall, and worsening shortness of breath, orthopnea SUSTAINED VENTRICULAR TACHYCARDIA Acute on Chronic Systolic CHF likely secondary to above - Coreg changed to Metoprolol no recurrence since per Cardiology, stable from Cardiac standpoint Weakness/Fall Fall likely secondary to dizziness induced by rhythm issues - will need inpatient rehab Hx. of Aneurysm - discussed with Neuro Surgeon in [facility] Dr. 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 Lesser degrees of spinal canal narrowing at additional levels. Neural foraminal narrowing at C6-7. -- Ortho consulted CAD s/p CABG Denies chest pain Troponin X 3: negative continue home medications: aspirin, plavix, statin, b-rena HTN Stable continue current meds Elevated Creatinine: crea stable now DVT px heparin SQ-- > discontinued due to brain aneurysm Code Status: FULL CODE Disposition: transfer to Rehab when accepted Current Inpatient Medications: Current Inpatient Medications Medications (Trade) Dose Ordered Sig/Nati Route Start Time Stop Time Status Last Admin Dose Admin Aspirin (Ecotrin Tab) 81 mg QPM PO 09/16/17 21:00 10/16/17 20:59 09/19/17 20:19 81 MG Clopidogrel Bisulfate (plAVix TAB) 75 mg HS PO 09/16/17 21:00 10/16/17 20:59 09/19/17 20:23 75 MG Finasteride (Proscar Tab) 5 mg QAM PO 09/17/17 09:00 10/17/17 08:59 09/19/17 08:05 5 MG Hydralazine HCl (Apresoline Tab) 25 mg TID PO 09/16/17 21:00 10/16/17 20:59 09/19/17 20:20 25 MG Hyoscyamine Sulfate (Levsin Tab) 0.125 mg Q4H PRN PO 09/16/17 17:15 10/16/17 17:14 Levetiracetam (Keppra Tab) 500 mg BID PO 09/16/17 21:00 10/16/17 20:59 09/19/17 20:18 500 MG Losartan Potassium (coZAAR TAB) 100 mg QAM PO 09/17/17 09:00 10/17/17 08:59 09/19/17 08:04 100 MG Multivitamins/ Minerals (Multivitamin W/ Minerals Tab) 1 tab QAM PO 09/17/17 09:00 10/17/17 08:59 09/19/17 08:02 1 TAB Nitroglycerin (Nitrostat Tab) 0.4 mg UD PRN SL 09/16/17 17:15 10/16/17 17:14 Potassium Chloride (Klor-Con M10) 10 meq DAILY PO 09/17/17 09:00 10/17/17 08:59 09/19/17 08:04 10 MEQ Rosuvastatin Calcium (Crestor Tab) 10 mg DAILY PO 09/17/17 09:00 10/17/17 08:59 09/19/17 08:05 10 MG Sertraline HCl (Zoloft Tab) 50 mg QDL PO 09/17/17 11:30 10/17/17 11:59 09/19/17 12:40 50 MG Magnesium Oxide (Mag-Ox Tab) 400 mg QDL PO 09/17/17 11:30 10/17/17 11:59 09/19/17 12:40 400 MG Morphine Sulfate (MoRPHine SULFATE INJ) 2 mg Q4 PRN IV 09/16/17 17:15 09/30/17 17:14 Docusate Sodium (coLACE CAP) 100 mg BID PO 09/16/17 21:00 10/16/17 20:59 09/19/17 20:20 100 MG Acetaminophen (Tylenol Tab) 650 mg Q4H PRN PO 09/16/17 17:15 10/16/17 17:14 Al Hydrox/Mg Hydrox/Simethicone (Maalox Max Susp) 15 ml Q4H PRN PO 09/16/17 17:15 10/16/17 17:14 Furosemide (Lasix Tab) 40 mg QAM PO 09/18/17 09:00 10/18/17 08:59 09/19/17 08:05 40 MG Metoprolol Tartrate (Lopressor Tab) 50 mg BID PO 09/18/17 21:00 10/18/17 20:59 09/19/17 20:22 50 MG Magnesium Hydroxide (Milk Of Magnesia Susp) 30 ml Q6H PRN PO 09/19/17 12:00 10/19/17 11:59 Lactulose (Chronulac Syrup) 30 gm DAILY PRN PO 09/19/17 12:00 10/19/17 11:59 09/19/17 20:23 30 GM
[2017-09-20 10:53] VITALS: BP 157/85; PULSE 65; TEMP 36.7; O2SAT 93
--- NOTE | 2017-09-20 10:56 | Orthopedic Consultation ---
Orthopedic Consultation Date of Consultation: Sep 20, 2017. Attending Physician: Juan Pablo Ferguson MD Reason for Consultation: Abnormal cervical CT History of Present Illness This is a pleasant 77-year-old gentleman with a complicated medical history that we are asked to see in consultation regarding some abnormal cervical CT. He presents at the emergency room on with confusion, weakness, falls. Patient reports he ambulates with a walker and has done so for at least the past 6 months. He is somewhat of a difficult historian. He denies upper or lower extremity pain or paresthesias. He does not global weakness. Patient has a pacemaker therefore unable to have an MRI. He is also currently on Plavix due to a CVA in 2016. He also has an MCA that is managed and Kal Garcia. He was supposed to have an angiogram today but this is obviously postponed. Past Medical/Surgical History Medical Problems: (1) Altered mental status Status: Acute (2) Anxiety Status: Acute (3) CHF (congestive heart failure) Status: Acute (4) Closed right humeral fracture Status: Acute (5) Constipation Status: Acute (6) Dehydration Status: Acute (7) Dyspnea on exertion Status: Acute (8) Headache Status: Acute (9) History of CVA (cerebrovascular accident) Status: Acute (10) Hyperglycemia Status: Acute (11) Hypomagnesemia Status: Acute (12) Left shoulder pain Status: Acute (13) LLL pneumonia Status: Acute (14) Pneumonia Status: Acute (15) Precordial chest pain Status: Acute (16) Proctitis Status: Acute (17) Rib pain on right side Status: Acute (18) Seizure Status: Acute (19) Shortness of breath Status: Acute (20) Unresponsive episode Status: Acute (21) Weakness Status: Acute (22) Weakness Status: Acute Family History Cad, cabg BROTHER Cancer aunt,uncle Diabetes mellitus MOTHER Gallbladder disease Hypertension MOTHER BROTHER Kidney disease Multiple myeloma FATHER Social History Smoking Status: Never Smoker Drug Use: none Marital Status: Housing Status: lives with family Occupation Status: retired, other Allergies Coded Allergies: Iodine (Verified Allergy, Severe, airway edema, 09/16/17) Tramadol (Verified Allergy, Severe, seizures, 09/16/17) Oxycodone (Verified Allergy, Unknown, "itchiness all over", 09/16/17) Felodipine (Verified Adverse Reaction, Mild, cough, 09/16/17) ANCELMO Inhibitors (Verified Adverse Reaction, Unknown, COUGHING, 09/16/17) Codeine (Verified Adverse Reaction, Unknown, hallucinations, depression, 09/16/17) Home Medications Scheduled Aspirin (Aspirin Ec), 81 MG PO QPM Carvedilol (Coreg), 25 MG PO QAM Carvedilol (Coreg), 37.5 MG PO QPM Clopidogrel Bisulfate (Clopidogrel), 75 MG PO HS Coenzyme Q10 (Ubidecarenone) (Coenzyme Q-10), 2 TABS PO BID Finasteride (Finasteride), 5 MG PO QAM Furosemide (Lasix), 40 MG PO WK Furosemide (Lasix), 20 MG PO DAILY Hydralazine Hcl (Apresoline), 25 MG PO TID Levetiracetam (Keppra), 500 MG PO BID Losartan Potassium (Cozaar), 100 MG PO QAM Magnesium Oxide (Mg Supplement (Magnesium Oxide), 400 MG PO QDL Multiple Vitamins W/ Minerals (Centrum Men), 1 TAB PO QAM Potassium Chloride (Micro-K Ext Rel), 10 MEQ PO DAILY Potassium Chloride (K-Tabs), 20 MEQ PO WK Prednisone (Prednisone), 50 MG PO DIRECTED Rosuvastatin Calcium (Rosuvastatin Calcium), 10 MG PO DAILY Sertraline HCl (Sertraline HCl), 50 MG PO QDL Scheduled PRN Acetaminophen (Tylenol Arthritis Ext Rel), 650 MG PO Q8H PRN for Pain Hyoscyamine Sulfate (Hyoscyamine Sulfate), 0.125 MG PO Q4H PRN for Cramping Nitroglycerin (Nitrostat), 0.4 MG SL UD PRN for Chest Pain Nystatin (Nystatin Cream), 0 EXT DAILY PRN for RASH Oxycodone Immediate Rel Tab (Roxicodone Ir), 1 TAB PO DAILY PRN for Pain Current Inpatient Medications Current Inpatient Medications Medications (Trade) Dose Ordered Sig/Nati Route Start Time Stop Time Status Last Admin Dose Admin Aspirin (Ecotrin Tab) 81 mg QPM PO 09/16/17 21:00 10/16/17 20:59 09/19/17 20:19 81 MG Clopidogrel Bisulfate (plAVix TAB) 75 mg HS PO 09/16/17 21:00 10/16/17 20:59 09/19/17 20:23 75 MG Finasteride (Proscar Tab) 5 mg QAM PO 09/17/17 09:00 10/17/17 08:59 09/20/17 09:12 5 MG Hydralazine HCl (Apresoline Tab) 25 mg TID PO 09/16/17 21:00 10/16/17 20:59 09/20/17 09:14 25 MG Hyoscyamine Sulfate (Levsin Tab) 0.125 mg Q4H PRN PO 09/16/17 17:15 10/16/17 17:14 Levetiracetam (Keppra Tab) 500 mg BID PO 09/16/17 21:00 10/16/17 20:59 09/20/17 09:13 500 MG Losartan Potassium (coZAAR TAB) 100 mg QAM PO 09/17/17 09:00 10/17/17 08:59 09/20/17 09:14 100 MG Multivitamins/ Minerals (Multivitamin W/ Minerals Tab) 1 tab QAM PO 09/17/17 09:00 10/17/17 08:59 09/20/17 09:13 1 TAB Nitroglycerin (Nitrostat Tab) 0.4 mg UD PRN SL 09/16/17 17:15 10/16/17 17:14 Potassium Chloride (Klor-Con M10) 10 meq DAILY PO 09/17/17 09:00 10/17/17 08:59 09/20/17 09:13 10 MEQ Rosuvastatin Calcium (Crestor Tab) 10 mg DAILY PO 09/17/17 09:00 10/17/17 08:59 09/20/17 09:12 10 MG Sertraline HCl (Zoloft Tab) 50 mg QDL PO 09/17/17 11:30 10/17/17 11:59 09/19/17 12:40 50 MG Magnesium Oxide (Mag-Ox Tab) 400 mg QDL PO 09/17/17 11:30 10/17/17 11:59 09/19/17 12:40 400 MG Morphine Sulfate (MoRPHine SULFATE INJ) 2 mg Q4 PRN IV 09/16/17 17:15 09/30/17 17:14 Docusate Sodium (coLACE CAP) 100 mg BID PO 09/16/17 21:00 10/16/17 20:59 09/20/17 09:12 100 MG Acetaminophen (Tylenol Tab) 650 mg Q4H PRN PO 09/16/17 17:15 10/16/17 17:14 Al Hydrox/Mg Hydrox/Simethicone (Maalox Max Susp) 15 ml Q4H PRN PO 09/16/17 17:15 10/16/17 17:14 Furosemide (Lasix Tab) 40 mg QAM PO 09/18/17 09:00 10/18/17 08:59 09/20/17 09:12 40 MG Metoprolol Tartrate (Lopressor Tab) 50 mg BID PO 09/18/17 21:00 10/18/17 20:59 09/20/17 09:12 50 MG Magnesium Hydroxide (Milk Of Magnesia Susp) 30 ml Q6H PRN PO 09/19/17 12:00 10/19/17 11:59 Lactulose (Chronulac Syrup) 30 gm DAILY PRN PO 09/19/17 12:00 10/19/17 11:59 09/19/17 20:23 30 GM Review of Systems Constitutional: + weakness Neurologic: + memory loss, + weakness, + balance problems Physical Exam Date Time Temp Pulse Resp B/P (MAP) Pulse Ox O2 Delivery O2 Flow Rate FiO2 09/20/17 07:17 36.7 74 18 174/93 (120) 100 Room Air 09/20/17 04:49 36.8 89 20 150/78 (102) 92 Room Air 09/20/17 04:00 Room Air 09/20/17 00:00 Room Air 09/19/17 23:17 37.4 77 26 161/80 (107) 94 Room Air 09/19/17 20:00 Room Air 09/19/17 19:56 37.0 66 22 122/81 (95) 94 Room Air 09/19/17 16:00 Room Air 09/19/17 15:47 37.0 73 22 138/77 (97) 96 Room Air 09/19/17 12:00 Room Air 09/19/17 11:52 37.0 84 18 142/63 (89) 96 Patient is alert and appropriate. It is somewhat confused at times. Neurological he has no evidence of upper motor neuron signs of arms or legs. Negative Babinski. Negative ankle clonus. Strength is intact bilateral upper extremities.: General Appearance: no apparent distress Head: normocephalic Eyes: normal inspection ENT: hearing grossly normal Neck: supple Respiratory/Chest: no respiratory distress Cardiovascular: regular rate, rhythm Abdomen/GI: soft Back: normal inspection Skin: warm/dry Lymphatic: no adenopathy Laboratory Results Last 24 Hours Test 09/19/17 11:35 09/19/17 16:08 09/20/17 06:02 Bedside Glucose 137 mg/dl 108 mg/dl Sodium Level 141 mmol/L Potassium Level 4.0 mmol/L Chloride Level 105 mmol/L Carbon Dioxide Level 30 mmol/L Anion Gap 6.0 mmol/L Blood Urea Nitrogen 28 mg/dl Creatinine 1.20 mg/dl Est Creatinine Clear Calc Drug Dose 47.4 ml/min Estimated GFR () 66.7 Estimated GFR (Non- 57.6 BUN/Creatinine Ratio 22.9 Random Glucose 120 mg/dl Calcium Level 9.1 mg/dl Magnesium Level 2.3 mg/dl Patient Name: JACQUIE DUARTE Unit Number: [id number] Dictated: 09/16/171548 Transcribed: 09/16/171548 PBS Printed Date/Time: [~ rep prt dt]/[~ rep prt tm] [~ rep ct labl] - [~ rep ct ivnm] [facility] [place] [address] Dictated: 09/16/171548 Transcribed: 09/16/171548 PBS Printed Date/Time: [~ rep prt dt]/[~ rep prt tm] [~ rep ct labl] - [~ rep ct ivnm] Patient: JACQUIE DUARTE Address1: [address] [place] [address] Rec: [id number] Address2: Acct ID: [id number] [facility] Zip: [place] [id number] Date: 1940 Sex: M Room/Bed: Ref Phy: Xavi Moreno M.D.(HUGH) SC: YESSICA Att Phy: Report #: [id number] Maryan Phy: Xavi Moreno M.D.(CARLOS) Test: CSWO Admit Phy: Electro Optics Engineer: LAURENCE Interpreting Phy: Farhad Mcbride MD Diagnosis: RIGHT LEG PAIN Ordering Phy: Les Jacobsen DO Service Date: 09/16/17 Admit Date: 09/16/17 MNE: [id number] CONF: DICTATED BY: Farhad Mcbride MD]] CC: Les Jacobsen, Xavi Mojica M.D.(CARLOS) Endcc: [~ rep ct add3]] CERVICAL SPINE W/O CLINICAL HISTORY: 77 years-old Male presenting with fall hit head. TECHNIQUE: Multidetector CT of the cervical spine was performed without the use of intravenous contrast. IV contrast: None. A dose lowering technique was used consistent with the principles of ALARA (as low as reasonably achievable). COMPARISON: Correlation made to CT angiography of the neck from 04/27/2017. CT DOSE (mGy.cm): The estimated cumulative dose is 920.30 mGy.cm. FINDINGS: Neurophysiology Tech topogram: Unremarkable. Normal cervical lordosis. Vertebral bodies maintain normal height and alignment. Intervertebral disc height loss noted at C6-7 with the remainder of the disc heights are observed. Disc osteophyte complexes noted at multiple levels, most strikingly at C3-4, where there is suggestion of disc extrusion with cranial migration area this appears to cause significant effacement of the paracentral ventral thecal sac. Disc osteophyte complexes at the remaining levels results and lesser degrees of paracentral ventral thecal sac effacement. Uncovertebral hypertrophy to varying degrees throughout the cervical spine, greatest at C6-7, where there is moderate right and mild left osseous neural foraminal narrowing. No acute fracture or subluxation. Smooth interlobular septal thickening at the lung apices with scattered groundglass opacities suggested. IMPRESSION: 1. No acute osseous injury of the cervical spine. 2. Multilevel degenerative changes including suggestion of a disc extrusion with cranial migration and resulting significant effacement of the spinal canal at C3-4. Lesser degrees of spinal canal narrowing at additional levels. Neural foraminal narrowing at C6-7. 3. Interlobular septal thickening at the lung apices could suggest volume overload. Electronically signed by: Farhad Mcbride M.D. 09/16/2017 3:54 PM Dictated Date/Time: 09/16/2017 3:49 PM The status of this report is Signed. Draft = Not yet reviewed or approved by Radiologist. Signed = Reviewed and approved by Radiologist. <AttendingPhy></AttendingPhy> <FamilyPhy>Xavi Moreno M.D.(CARLOS)</ FamilyPhy> <PrimaryPhy>Xavi Moreno M.D.(CARLOS)</PrimaryPhy> <UnitNumber> [id number]</UnitNumber> <VisitNumber>[id number]</VisitNumber> <PatientName> JACQUIE DUARTE</PatientName> <DateOfBirth>1940</DateOfBirth> <Location> C.[facility]</Location> <ServiceDate>09/16/17</ServiceDate> <MNE>ESINDI</MNE> < OrderingPhy>Les Jacobsen DO</OrderingPhy> <OrderingPhyMNE>f rep ord dr buckley</ OrderingPhyMNE> <DictatingPhyMNE>f rep dict dr buckley</DictatingPhyMNE> <CCListMNE> f rep ct mne</CCListMNE> <AdmittingPhyMNE>f pt admit dr buckley</AdmittingPhyMNE> < AttendingPhyMNE>f pt attend dr buckley</AttendingPhyMNE> <ConsultingPhyMNE>f pt consult dr buckley</ConsultingPhyMNE> <FamilyPhyMNE>f pt fam dr buckley</FamilyPhyMNE> <OtherPhyMNE>f pt other dr buckley</OtherPhyMNE> < PrimaryPhyMNE>f pt prim care dr buckley</PrimaryPhyMNE> <ReferringPhyMNE>f pt referring dr buckley</ReferringPhyMNE> Assessment & Plan Assessment: Cervical stenosis Plan: Films were reviewed by Dr. Moctezuma. It is the recommendation further imaging would be necessary. He is obviously unable to have an MRI due to his pacemaker. Therefore would consider pursuing a cervical CT myelogram. He is on Plavix, this would obviously have to be held before this could be completed. This can be done on an outpatient basis. Patient is a postop follow-up [facility] for angiogram for his aneurysm. If they hold his Plavix for this procedure. a CT myelogram of cervical spine could be performed as well. Patient may also follow up with a tertiary care center. If he does need surgical intervention this would be best managed at a larger facility. I have discussed this case with Dr. Ferguson and given recommendations.
--- NOTE | 2017-09-20 11:06 | Progress Note ---
Medicine Progress Note Date & Time of Visit: Sep 20, 2017 at 11:02. Subjective resting in bed, alert, oriented comfortable denies any symptoms states he feels ok overall would like to be discharged today Objective Last 8 Hrs Date Time Temp Pulse Resp B/P (MAP) Pulse Ox O2 Delivery O2 Flow Rate FiO2 09/20/17 07:17 36.7 74 18 174/93 (120) 100 Room Air 09/20/17 04:49 36.8 89 20 150/78 (102) 92 Room Air 09/20/17 04:00 Room Air Physical Exam: General- oriented x 3, not in distress, speaks in sentences with no effort Head- atraumatic Eyes- anicteric Neck- supple, no JVD Lungs- clear breath sounds bilaterally Heart- regular rhythm; no murmur, normal rate Abdomen- normal bowel sounds, soft, nontender Extremities- no pretibial edema, no calf tenderness Neuro- alert, oriented x 2; PERRL, EOMI; no facial palsy; no dysarthria; (+) expressive aphasia, motor 5/5 bilaterally; no other gross focal deficits Skin- warm & dry Laboratory Results: Last 24 Hours Test 09/19/17 11:35 09/19/17 16:08 09/20/17 06:02 Bedside Glucose 137 mg/dl 108 mg/dl Sodium Level 141 mmol/L Potassium Level 4.0 mmol/L Chloride Level 105 mmol/L Carbon Dioxide Level 30 mmol/L Anion Gap 6.0 mmol/L Blood Urea Nitrogen 28 mg/dl Creatinine 1.20 mg/dl Est Creatinine Clear Calc Drug Dose 47.4 ml/min Estimated GFR () 66.7 Estimated GFR (Non- 57.6 BUN/Creatinine Ratio 22.9 Random Glucose 120 mg/dl Calcium Level 9.1 mg/dl Magnesium Level 2.3 mg/dl Assessment & Plan Patient is a 77 yr old male with a complex past medical history including CAD s/ p CABG and stents, hx. of complete heart block s/p pacemaker in situ, chronic severe cardiomyopathy and systolic CHF with EF around 25%, HTN, HLD, hx. of CVA , hx. of brain aneurysm, prior hx. of colorectal cancer s/p resection/chem/ radiation who presents with few weeks history of worsening confusion, weakness, fall, and worsening shortness of breath, orthopnea SUSTAINED VENTRICULAR TACHYCARDIA - Acute on Chronic Systolic CHF likely secondary to above - Coreg changed to Metoprolol no recurrence so far per Cardiology, stable from Cardiac standpoint Weakness/Fall Fall likely secondary to dizziness induced by rhythm issues - awaiting acceptance to inpatient Rehab Hx. of Aneurysm - discussed with Neuro Surgeon in [facility] Dr. Mcmahon will defer DSA study for now according to Dr. 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 Lesser degrees of spinal canal narrowing at additional levels. Neural foraminal narrowing at C6-7. -- Ortho Spine consulted Dr. Moctezuma, states patient needs outpatient CT myelogram CAD s/p CABG Denies chest pain Troponin X 3: negative continue home medications: aspirin, plavix, statin, b-rena HTN Stable continue current meds Elevated Creatinine: crea stable now DVT px heparin SQ-- > discontinued due to brain aneurysm Code Status: FULL CODE Disposition: transfer to Rehab when accepted Current Inpatient Medications: Current Inpatient Medications Medications (Trade) Dose Ordered Sig/Nati Route Start Time Stop Time Status Last Admin Dose Admin Aspirin (Ecotrin Tab) 81 mg QPM PO 09/16/17 21:00 10/16/17 20:59 09/19/17 20:19 81 MG Clopidogrel Bisulfate (plAVix TAB) 75 mg HS PO 09/16/17 21:00 10/16/17 20:59 09/19/17 20:23 75 MG Finasteride (Proscar Tab) 5 mg QAM PO 09/17/17 09:00 10/17/17 08:59 09/20/17 09:12 5 MG Hydralazine HCl (Apresoline Tab) 25 mg TID PO 09/16/17 21:00 10/16/17 20:59 09/20/17 09:14 25 MG Hyoscyamine Sulfate (Levsin Tab) 0.125 mg Q4H PRN PO 09/16/17 17:15 10/16/17 17:14 Levetiracetam (Keppra Tab) 500 mg BID PO 09/16/17 21:00 10/16/17 20:59 09/20/17 09:13 500 MG Losartan Potassium (coZAAR TAB) 100 mg QAM PO 09/17/17 09:00 10/17/17 08:59 09/20/17 09:14 100 MG Multivitamins/ Minerals (Multivitamin W/ Minerals Tab) 1 tab QAM PO 09/17/17 09:00 10/17/17 08:59 09/20/17 09:13 1 TAB Nitroglycerin (Nitrostat Tab) 0.4 mg UD PRN SL 09/16/17 17:15 10/16/17 17:14 Potassium Chloride (Klor-Con M10) 10 meq DAILY PO 09/17/17 09:00 10/17/17 08:59 09/20/17 09:13 10 MEQ Rosuvastatin Calcium (Crestor Tab) 10 mg DAILY PO 09/17/17 09:00 10/17/17 08:59 09/20/17 09:12 10 MG Sertraline HCl (Zoloft Tab) 50 mg QDL PO 09/17/17 11:30 10/17/17 11:59 09/19/17 12:40 50 MG Magnesium Oxide (Mag-Ox Tab) 400 mg QDL PO 09/17/17 11:30 10/17/17 11:59 09/19/17 12:40 400 MG Morphine Sulfate (MoRPHine SULFATE INJ) 2 mg Q4 PRN IV 09/16/17 17:15 09/30/17 17:14 Docusate Sodium (coLACE CAP) 100 mg BID PO 09/16/17 21:00 10/16/17 20:59 09/20/17 09:12 100 MG Acetaminophen (Tylenol Tab) 650 mg Q4H PRN PO 09/16/17 17:15 10/16/17 17:14 Al Hydrox/Mg Hydrox/Simethicone (Maalox Max Susp) 15 ml Q4H PRN PO 09/16/17 17:15 10/16/17 17:14 Furosemide (Lasix Tab) 40 mg QAM PO 09/18/17 09:00 10/18/17 08:59 09/20/17 09:12 40 MG Metoprolol Tartrate (Lopressor Tab) 50 mg BID PO 09/18/17 21:00 10/18/17 20:59 09/20/17 09:12 50 MG Magnesium Hydroxide (Milk Of Magnesia Susp) 30 ml Q6H PRN PO 09/19/17 12:00 10/19/17 11:59 Lactulose (Chronulac Syrup) 30 gm DAILY PRN PO 09/19/17 12:00 10/19/17 11:59 09/19/17 20:23 30 GM
--- NOTE | 2017-09-20 11:37 | Cardiology Follow-Up ---
Subjective Subjective Date of Service: Sep 20, 2017. Pt evaluation today including: conversation w/ patient, physical exam, chart review, lab review, review of studies, review of inpatient medication list Additional Details: Pt seen and examined, Tele reviewed: sinus/paced rhythm, no arrhythmias. Problem List Medical Problems: (1) Altered mental status Status: Acute (2) Anxiety Status: Acute (3) CHF (congestive heart failure) Status: Acute (4) Closed right humeral fracture Status: Acute (5) Constipation Status: Acute (6) Dehydration Status: Acute (7) Dyspnea on exertion Status: Acute (8) Headache Status: Acute (9) History of CVA (cerebrovascular accident) Status: Acute (10) Hyperglycemia Status: Acute (11) Hypomagnesemia Status: Acute (12) Left shoulder pain Status: Acute (13) LLL pneumonia Status: Acute (14) Pneumonia Status: Acute (15) Precordial chest pain Status: Acute (16) Proctitis Status: Acute (17) Rib pain on right side Status: Acute (18) Seizure Status: Acute (19) Shortness of breath Status: Acute (20) Unresponsive episode Status: Acute (21) Weakness Status: Acute (22) Weakness Status: Acute Review of Systems Respiratory: No see HPI, No cough, No sputum, No wheezing, No shortness of breath, No dyspnea on exertion, No dyspnea at rest, No hemoptysis, No problem reported Cardiac: No see HPI, No chest pain, No orthopnea, No PND, No edema, No claudication, No palpitations, No problem reported Neurologic: + memory loss, + problem reported Objective Vital Signs Last Vital Signs Documentation Date Time Temp Pulse Resp B/P (MAP) Pulse Ox O2 Delivery O2 Flow Rate FiO2 09/20/17 10:53 36.7 65 19 157/85 (109) 93 Room Air 09/19/17 04:00 2.0 Physical Exam: General Appearance: WD/WN, no apparent distress, + thin Eyes: bilateral eyes normal inspection, bilateral eyes PERRL, bilateral eyes EOMI ENT: normal ENT inspection, pharynx normal, + pertinent finding (hard of hearing) Neck: supple, no adenopathy, thyroid normal, no JVD, no carotid bruits, trachea midline Respiratory/Chest: lungs clear, no respiratory distress, no accessory muscle use Cardiovascular: regular rate, rhythm, no edema, no JVD, no murmur, + gallop/S4 Abdomen: normal bowel sounds, non tender, soft, no organomegaly Extremities: normal inspection, no pedal edema, no calf tenderness Neurologic/Psychiatric: 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 sustained ventricular tachycardia no further episodes with change of beta rena would cont metoprolol tartrate 50mg bid 2. systolic heart failure stable cont daily po lasix 3. MCA aneurysm repair planned for 09/20 4. preop risk assessment patient counseled that he would be a high risk for adverse perioperative cardiovascular event but that no further intervention would further lower that risk he states that he understands, is accepting of the risk and wishes to proceed he is medically optimized from a cardiac standpoint and see no benefit in delaying procedure at this time 5. back pain pacemaker is MRI compatible no contraindication to MRI from cardiac standpoint. ok to transfer or d/c to home from cardiac standpoint.
[2017-09-20] MEDS: ACETAMINOPHEN 325 MG TAB PO PRN (12:40)
[2017-09-20] MEDS: SERTRALINE HCL 50 MG TAB PO SCH (12:41)
[2017-09-20] MEDS: MAGNESIUM OXIDE 400 MG TAB PO SCH (12:42)
[2017-09-20 15:47] VITALS: BP 146/80; PULSE 62; TEMP 36.7; O2SAT 95
[2017-09-20 19:39] VITALS: BP 134/78; PULSE 70; TEMP 36.6; O2SAT 96
[2017-09-20] MEDS: ASPIRIN 81 MG ECTAB PO SCH (21:20)
[2017-09-20] MEDS: CLOPIDOGREL BISULFATE 75 MG TAB PO SCH (21:22)
[2017-09-21] VITALS (7 sets, daily range): BP systolic 124–160; BP diastolic 76–86; PULSE 62–74; TEMP 36.7–37.5; O2SAT 95–96
[2017-09-21] MEDS: LEVETIRACETAM 500 MG TAB PO SCH ×2 (10:30→19:55)
[2017-09-21] MEDS: DOCUSATE SODIUM 100 MG CAP PO SCH ×2 (10:30→19:54)
[2017-09-21] MEDS: MAGNESIUM OXIDE 400 MG TAB PO SCH (10:30)
[2017-09-21] MEDS: FINASTERIDE 5 MG TAB PO SCH (10:30)
[2017-09-21] MEDS: POTASSIUM CHLORIDE 10 MEQ TABCR PO SCH (10:30)
[2017-09-21] MEDS: ROSUVASTATIN CALCIUM 10 MG TAB PO SCH (10:30)
[2017-09-21] MEDS: SERTRALINE HCL 50 MG TAB PO SCH (10:31)
[2017-09-21] MEDS: METOPROLOL TARTRATE 25 MG TAB PO SCH ×2 (10:31→19:55)
[2017-09-21] MEDS: CEROVITE ADV FORMULA TAB PO SCH (10:31)
[2017-09-21] MEDS: LOSARTAN POTASSIUM 50 MG TAB PO SCH (10:31)
[2017-09-21] MEDS: FUROSEMIDE 40 MG TAB PO SCH (10:32)
--- NOTE | 2017-09-21 18:56 | Progress Note ---
Medicine Progress Note Date & Time of Visit: Sep 21, 2017 at 18:49. Subjective patient seen resting in bed, comfortable denies chest pain, palpitations, dizziness, dyspnea eager to be discharged no other symptoms Objective Last 8 Hrs Date Time Temp Pulse Resp B/P (MAP) Pulse Ox O2 Delivery O2 Flow Rate FiO2 09/21/17 16:00 Room Air 09/21/17 15:44 37.1 68 18 146/81 (102) 96 Room Air 09/21/17 12:00 Room Air 09/21/17 11:28 36.7 63 22 129/78 (95) 95 Room Air Physical Exam: General- oriented x 3, not in distress, speaks in sentences with no effort Neck- no JVD Lungs- clear breath sounds bilaterally, no rales/wheezes Heart- regular rhythm; no murmur, normal rate Abdomen- normal bowel sounds, soft, nontender Extremities- no pretibial edema, no calf tenderness Neuro- alert, oriented x 2; PERRL, EOMI; no facial palsy; no dysarthria; (+) expressive aphasia, motor 5/5 bilaterally; no other gross focal deficits Skin- warm & dry Assessment & Plan Patient is a 77 yr old male with a complex past medical history including CAD s/ p CABG and stents, hx. of complete heart block s/p pacemaker in situ, chronic severe cardiomyopathy and systolic CHF with EF around 25%, HTN, HLD, hx. of CVA , hx. of brain aneurysm, prior hx. of colorectal cancer s/p resection/chem/ radiation who presents with few weeks history of worsening confusion, weakness, fall, and worsening shortness of breath, orthopnea SUSTAINED VENTRICULAR TACHYCARDIA - Acute on Chronic Systolic CHF likely secondary to above - Coreg changed to Metoprolol no recurrence since that time per Cardiology, stable from Cardiac standpoint WEAKNESS/FALL - Fall likely secondary to dizziness induced by rhythm issues - Awaiting acceptance to inpatient Rehab HISTORY OF ANEURYSM - discussed with Neuro Surgeon in [facility] Dr. Mcmahon will defer DSA study for now according to Dr. 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 Lesser degrees of spinal canal narrowing at additional levels. Neural foraminal narrowing at C6-7. -- Ortho Spine consulted Dr. Moctezuma, states patient needs outpatient CT myelogram CAD s/p CABG Denies chest pain Troponin X 3: negative continue home medications: aspirin, plavix, statin, b-rena HTN Stable continue current meds Elevated Creatinine: crea stable now DVT px heparin SQ-- > discontinued due to brain aneurysm scds Code Status: FULL CODE Disposition: transfer to Rehab when accepted Current Inpatient Medications: Current Inpatient Medications Medications (Trade) Dose Ordered Sig/Nati Route Start Time Stop Time Status Last Admin Dose Admin Aspirin (Ecotrin Tab) 81 mg QPM PO 09/16/17 21:00 10/16/17 20:59 09/20/17 21:20 81 MG Clopidogrel Bisulfate (plAVix TAB) 75 mg HS PO 09/16/17 21:00 10/16/17 20:59 09/20/17 21:22 75 MG Finasteride (Proscar Tab) 5 mg QAM PO 09/17/17 09:00 10/17/17 08:59 09/21/17 10:30 5 MG Hydralazine HCl (Apresoline Tab) 25 mg TID PO 09/16/17 21:00 10/16/17 20:59 09/21/17 14:11 25 MG Hyoscyamine Sulfate (Levsin Tab) 0.125 mg Q4H PRN PO 09/16/17 17:15 10/16/17 17:14 Levetiracetam (Keppra Tab) 500 mg BID PO 09/16/17 21:00 10/16/17 20:59 09/21/17 10:30 500 MG Losartan Potassium (coZAAR TAB) 100 mg QAM PO 09/17/17 09:00 10/17/17 08:59 09/21/17 10:31 100 MG Multivitamins/ Minerals (Multivitamin W/ Minerals Tab) 1 tab QAM PO 09/17/17 09:00 10/17/17 08:59 09/21/17 10:31 1 TAB Nitroglycerin (Nitrostat Tab) 0.4 mg UD PRN SL 09/16/17 17:15 10/16/17 17:14 Potassium Chloride (Klor-Con M10) 10 meq DAILY PO 09/17/17 09:00 10/17/17 08:59 09/21/17 10:30 10 MEQ Rosuvastatin Calcium (Crestor Tab) 10 mg DAILY PO 09/17/17 09:00 10/17/17 08:59 09/21/17 10:30 10 MG Sertraline HCl (Zoloft Tab) 50 mg QDL PO 09/17/17 11:30 10/17/17 11:59 09/21/17 10:31 50 MG Magnesium Oxide (Mag-Ox Tab) 400 mg QDL PO 09/17/17 11:30 10/17/17 11:59 09/21/17 10:30 400 MG Morphine Sulfate (MoRPHine SULFATE INJ) 2 mg Q4 PRN IV 09/16/17 17:15 09/30/17 17:14 Docusate Sodium (coLACE CAP) 100 mg BID PO 09/16/17 21:00 10/16/17 20:59 09/21/17 10:30 100 MG Acetaminophen (Tylenol Tab) 650 mg Q4H PRN PO 09/16/17 17:15 10/16/17 17:14 09/20/17 12:40 650 MG Al Hydrox/Mg Hydrox/Simethicone (Maalox Max Susp) 15 ml Q4H PRN PO 09/16/17 17:15 10/16/17 17:14 Furosemide (Lasix Tab) 40 mg QAM PO 09/18/17 09:00 10/18/17 08:59 09/21/17 10:32 40 MG Metoprolol Tartrate (Lopressor Tab) 50 mg BID PO 09/18/17 21:00 10/18/17 20:59 09/21/17 10:31 50 MG Magnesium Hydroxide (Milk Of Magnesia Susp) 30 ml Q6H PRN PO 09/19/17 12:00 10/19/17 11:59 Lactulose (Chronulac Syrup) 30 gm DAILY PRN PO 09/19/17 12:00 10/19/17 11:59 09/19/17 20:23 30 GM
[2017-09-21] MEDS: ASPIRIN 81 MG ECTAB PO SCH (19:54)
[2017-09-21] MEDS: CLOPIDOGREL BISULFATE 75 MG TAB PO SCH (19:56)
[2017-09-22 04:11] VITALS: BP 135/69; PULSE 70; TEMP 37.1; O2SAT 95
[2017-09-22 06:49] LABS: HEMATOCRIT 36.8 % (42-52); MEAN CELL VOLUME 91.1 fL (80-100); MEAN CORPUSCULAR HGB CONC 31.8 g/dl (32-36); MEAN PLATELET VOLUME 9.6 fL (7.4-10.4); PLATELET COUNT 240 K/uL (130-400); RED BLOOD COUNT 4.04 M/uL (4.7-6.1); WHITE BLOOD COUNT 6.89 K/uL (4.8-10.8)
[2017-09-22 07:54] VITALS: BP 160/82; PULSE 69; TEMP 37; O2SAT 94
[2017-09-22] MEDS: CEROVITE ADV FORMULA TAB PO SCH (09:06)
[2017-09-22] MEDS: POTASSIUM CHLORIDE 10 MEQ TABCR PO SCH (09:06)
[2017-09-22] MEDS: LEVETIRACETAM 500 MG TAB PO SCH (09:06)
[2017-09-22] MEDS: FUROSEMIDE 40 MG TAB PO SCH (09:07)
[2017-09-22] MEDS: DOCUSATE SODIUM 100 MG CAP PO SCH (09:07)
[2017-09-22] MEDS: ROSUVASTATIN CALCIUM 10 MG TAB PO SCH (09:07)
[2017-09-22] MEDS: FINASTERIDE 5 MG TAB PO SCH (09:07)
[2017-09-22] MEDS: METOPROLOL TARTRATE 25 MG TAB PO SCH (09:08)
[2017-09-22] MEDS: LOSARTAN POTASSIUM 50 MG TAB PO SCH (09:08)
[2017-09-22 12:00] VITALS: BP 134/78; PULSE 60; TEMP 36.6; O2SAT 96
[2017-09-22] MEDS: SERTRALINE HCL 50 MG TAB PO SCH (12:39)
[2017-09-22] MEDS: MAGNESIUM OXIDE 400 MG TAB PO SCH (12:39)
[2017-09-22] MEDS: ACETAMINOPHEN 325 MG TAB PO PRN (14:13)
[2017-09-22 15:36] VITALS: BP 127/70; PULSE 60; TEMP 36.7; O2SAT 95
[2017-09-22] MEDS ORDERED: LVS125 PO (16:28)
[2017-09-22] MEDS ORDERED: PLV75 PO (16:28)
[2017-09-22] MEDS ORDERED: CLC100 PO (16:28)
[2017-09-22] MEDS ORDERED: MULT-1030 PO (16:28)
[2017-09-22] MEDS ORDERED: NTRGSL/4 SL (16:28)
[2017-09-22] MEDS ORDERED: ROSU10TA24 PO (16:28)
[2017-09-22] MEDS ORDERED: PRS5 PO (16:28)
[2017-09-22] MEDS ORDERED: LOSA100T65 PO (16:28)
[2017-09-22] MEDS ORDERED: HYDR-4717 PO (16:28)
[2017-09-22] MEDS ORDERED: ASPI81TA28 PO (16:28)
[2017-09-22] MEDS ORDERED: ACET1TAB84 PO (16:28)
[2017-09-22] MEDS ORDERED: LEVE500T13 PO (16:28)
[2017-09-22] MEDS ORDERED: LSX40 PO (16:28)
[2017-09-22] MEDS ORDERED: LPR25 PO (16:28)
[2017-09-22] MEDS ORDERED: ZLF/50 PO (16:28)
[2017-09-22] MEDS ORDERED: NYSCR30 EXT (16:28)
[2017-09-22] MEDS ORDERED: COEN100C2 PO (16:28)
[2017-09-22] MEDS ORDERED: MAGN1TAB19 PO (16:28)
[2017-09-22] MEDS ORDERED: POTA10CA28 PO (16:28)
[2017-09-22] MEDS ORDERED: OXYC1TAB3 PO (16:28)
--- NOTE | 2017-09-22 18:00 | Progress Note ---
Medicine Progress Note Date & Time of Visit: Sep 22, 2017 at 17:48. Subjective sitting up in bed, just had supper alert, oriented states he feels fine overall denies palpitations, dyspnea, chest pain, dizziness no other symptoms Objective Last 8 Hrs Date Time Temp Pulse Resp B/P (MAP) Pulse Ox O2 Delivery O2 Flow Rate FiO2 09/22/17 16:00 Room Air 09/22/17 15:36 36.7 60 18 127/70 (89) 95 Room Air 09/22/17 12:00 Room Air 09/22/17 12:00 36.6 60 18 134/78 (96) 96 Room Air Physical Exam: General- oriented x 3, not in distress, speaks in sentences with no effort Neck- no JVD Lungs- clear breath sounds bilaterally, no wheezing, no rales Heart- regular rhythm; no murmur, normal rate Abdomen- normal bowel sounds, soft, nontender Extremities- no pretibial edema, no calf tenderness Neuro- alert, oriented x 2; EOMI; no facial palsy; no dysarthria; (+) expressive aphasia, motor 5/5 bilaterally; no other gross focal deficits Skin- warm & dry Laboratory Results: Last 24 Hours Test 09/22/17 06:02 White Blood Count 6.89 K/uL Red Blood Count 4.04 M/uL Hemoglobin 11.7 g/dL Hematocrit 36.8 % Mean Corpuscular Volume 91.1 fL Mean Corpuscular Hemoglobin 29.0 pg Mean Corpuscular Hemoglobin Concent 31.8 g/dl RDW Standard Deviation 43.2 fL RDW Coefficient of Variation 13.0 % Platelet Count 240 K/uL Mean Platelet Volume 9.6 fL Assessment & Plan Patient is a 77 yr old male with a complex past medical history including CAD s/ p CABG and stents, hx. of complete heart block s/p pacemaker in situ, chronic severe cardiomyopathy and systolic CHF with EF around 25%, HTN, HLD, hx. of CVA , hx. of brain aneurysm, prior hx. of colorectal cancer s/p resection/chem/ radiation who presents with few weeks history of worsening confusion, weakness, fall, and worsening shortness of breath, orthopnea SUSTAINED VENTRICULAR TACHYCARDIA - Acute on Chronic Systolic CHF likely secondary to above - Coreg changed to Metoprolol no recurrence since that time per Cardiology, stable from Cardiac standpoint - continue Metoprolol 50mg BID ff up with Tyre Retreader Dr. Morales in 3-4 weeks WEAKNESS/FALL - Fall likely secondary to dizziness induced by rhythm issues from Statin? recently changed to Rosuvastatin, monitor response - Fall Precautions please - continue PT/OT in [facility] HISTORY OF ANEURYSM - scheduled for DSA to evaluated 4mm aneurysm - discussed with Neuro Surgeon in [facility] Dr. Mcmahon will defer DSA study for now as procedure not urgent, small aneurysm not likely causing his intermittent headaches they will call patient re: new schedule for DSA CERVICAL STENOSIS: C3-4 Disc Extrusion -- CT Spine: Multilevel degenerative changes including suggestion of a disc extrusion with cranial migration and resulting significant effacement of the spinal canal at C3-4. Lesser degrees of spinal canal narrowing at additional levels. Neural foraminal narrowing at C6-7. -- Ortho Spine consulted : Dr. Moctezuma, recommend outpatient CT myelogram CAD s/p CABG Denies chest pain Troponin X 3: negative continue home medications: aspirin, plavix, statin, b-rena HTN Stable continue current meds Elevated Creatinine: crea stable now DVT px heparin SQ-- > discontinued due to brain aneurysm scds Code Status: FULL CODE Disposition: transfer to [facility] today patient to be followed by Dr. Lindo in [facility] ff up with Tyre Retreader Dr. Morales in 3-4 weeks ff up with Neurosurgery in [facility] as scheduled Current Inpatient Medications: Current Inpatient Medications Medications (Trade) Dose Ordered Sig/Nati Route Start Time Stop Time Status Last Admin Dose Admin Aspirin (Ecotrin Tab) 81 mg QPM PO 09/16/17 21:00 10/16/17 20:59 09/21/17 19:54 81 MG Clopidogrel Bisulfate (plAVix TAB) 75 mg HS PO 09/16/17 21:00 10/16/17 20:59 09/21/17 19:56 75 MG Finasteride (Proscar Tab) 5 mg QAM PO 09/17/17 09:00 10/17/17 08:59 09/22/17 09:07 5 MG Hydralazine HCl (Apresoline Tab) 25 mg TID PO 09/16/17 21:00 10/16/17 20:59 09/22/17 14:12 25 MG Hyoscyamine Sulfate (Levsin Tab) 0.125 mg Q4H PRN PO 09/16/17 17:15 10/16/17 17:14 Levetiracetam (Keppra Tab) 500 mg BID PO 09/16/17 21:00 10/16/17 20:59 09/22/17 09:06 500 MG Losartan Potassium (coZAAR TAB) 100 mg QAM PO 09/17/17 09:00 10/17/17 08:59 09/22/17 09:08 100 MG Multivitamins/ Minerals (Multivitamin W/ Minerals Tab) 1 tab QAM PO 09/17/17 09:00 10/17/17 08:59 09/22/17 09:06 1 TAB Nitroglycerin (Nitrostat Tab) 0.4 mg UD PRN SL 09/16/17 17:15 10/16/17 17:14 Potassium Chloride (Klor-Con M10) 10 meq DAILY PO 09/17/17 09:00 10/17/17 08:59 09/22/17 09:06 10 MEQ Rosuvastatin Calcium (Crestor Tab) 10 mg DAILY PO 09/17/17 09:00 10/17/17 08:59 09/22/17 09:07 10 MG Sertraline HCl (Zoloft Tab) 50 mg QDL PO 09/17/17 11:30 10/17/17 11:59 09/22/17 12:39 50 MG Magnesium Oxide (Mag-Ox Tab) 400 mg QDL PO 09/17/17 11:30 10/17/17 11:59 09/22/17 12:39 400 MG Morphine Sulfate (MoRPHine SULFATE INJ) 2 mg Q4 PRN IV 09/16/17 17:15 09/30/17 17:14 Docusate Sodium (coLACE CAP) 100 mg BID PO 09/16/17 21:00 10/16/17 20:59 09/22/17 09:07 100 MG Acetaminophen (Tylenol Tab) 650 mg Q4H PRN PO 09/16/17 17:15 10/16/17 17:14 09/22/17 14:13 650 MG Al Hydrox/Mg Hydrox/Simethicone (Maalox Max Susp) 15 ml Q4H PRN PO 09/16/17 17:15 10/16/17 17:14 Furosemide (Lasix Tab) 40 mg QAM PO 09/18/17 09:00 10/18/17 08:59 09/22/17 09:07 40 MG Metoprolol Tartrate (Lopressor Tab) 50 mg BID PO 09/18/17 21:00 10/18/17 20:59 09/22/17 09:08 50 MG Magnesium Hydroxide (Milk Of Magnesia Susp) 30 ml Q6H PRN PO 09/19/17 12:00 10/19/17 11:59 Lactulose (Chronulac Syrup) 30 gm DAILY PRN PO 09/19/17 12:00 10/19/17 11:59 09/19/17 20:23 30 GM
--- NOTE | 2017-09-22 18:06 | Discharge Instructions ---
Discharge Instructions Date of Service Sep 22, 2017. Admission Reason for Admission: Chronic Systolic Chf,Nyha Class 3 Discharge Discharge Diagnosis / Problem: SUSTAINED VENTRICULAR TACHYCARDIA, ACUTE ON CHRONIC SYSTOLIC CHF Discharge Goals Goal(s): Diagnostic testing, Therapeutic intervention Activity Recommendations Activity Level: Assistance Required Therapies: Physical Therapy, Occupational Therapy . Additional Information Patient informed of condition: Yes Advance Directives: No (UNKNOWN) DNR: No (PATIENT IS A FULL CODE) Level of Care: Skilled Communicable Disease: No Prognosis: Stable Instructions / Follow-Up Instructions / Follow-Up MONITOR VOLUME STATUS CLOSELY (RE: CHF). MONITOR HEART RATE (RE: COREG CHANGED TO METOPROLOL FOR SVT's). FALL PRECAUTIONS PLEASE. PLEASE REFER TO ACCOMPANYING DISCHARGE SUMMARY FOR FURTHER DETAILS. Current Hospital Diet Patient's current hospital diet: AHA Diet (Heart Healthy) Discharge Diet Recommended Diet: AHA Diet (Heart Healthy) Fluid Restriction: 1800 ml (7 cups) Procedures Procedures Performed: CT HEAD, CT CERVICAL SPINE, PACEMAKER INTERROGATION Pending Studies Studies pending at discharge: yes List of pending studies: DSA C/O [facility]- DR. ABDALLA Physician Orders On Transfer Special Precautions: MONITOR VOLUME STATUS CLOSELY (RE: CHF). MONITOR HEART RATE (RE: COREG CHANGED TO METOPROLOL FOR SVT's). FALL PRECAUTIONS PLEASE. PLEASE REFER TO ACCOMPANYING DISCHARGE SUMMARY FOR FURTHER DETAILS. Medical Emergencies . Who to Call and When: Medical Emergencies: If at any time you feel your situation is an emergency, please call 911 immediately. . Non-Emergent Contact Non-Emergency issues call your: Primary Care Provider, Trombone Slide Assembler, Neurologist Call Non-Emergent contact if: you have a fever, you have any medication questions . Past History Medical & Surgical History: (1) Chest pain (2) Seizure (3) Right humeral fracture (4) Elevated blood pressure reading (5) Sick sinus syndrome (6) Peripheral vascular disease (7) History of CVA (cerebrovascular accident) (8) History of colorectal cancer (9) Clostridium difficile infection (10) DVT (deep venous thrombosis) (11) Seizure disorder (12) CHF exacerbation (13) Pacemaker at end of battery life (14) Chronic systolic CHF (congestive heart failure), NYHA class 3 (15) Rib pain on right side (16) CHF (congestive heart failure) (17) Altered mental status (18) Fall (19) Left bundle branch block (20) Dyslipidemia (21) Carotid disease, bilateral (22) Diabetes mellitus, type II (23) Benign prostatic hyperplasia (24) Hypertension (25) History of skin cancer (26) Malignant neoplasm of rectum (27) Coronary artery disease (28) GERD (gastroesophageal reflux disease) (29) AV block . "Provider Documentation" section prepared by Juan Pablo Ferguson. . Core Measure Problem Core Measures: None
[2017-09-22 18:23] VITALS: BP 127/70; PULSE 60; TEMP 36.7; O2SAT 95
--- NOTE | 2017-09-22 18:42 | Discharge Summary ---
Discharge Summary Date of Service Sep 22, 2017. Discharge Summary Admission Date: Sep 16, 2017 at 17:16 Discharge Date: Sep 22, 2017 Discharge Disposition: halfway facility Principal Diagnosis: SUSTAINED VENTRICULAR TACHYCARDIA - Acute on Chronic Systolic CHF likely secondary to above Secondary Diagnoses/Problems: Please refer to hospital course below. Procedures: PELVIS 1 OR 2 VIEW ROUTINE CLINICAL HISTORY: 77 years-old Male presenting with l hip pain, altered mental status, leg pain. TECHNIQUE: Single frontal view of the pelvis was obtained. COMPARISON: CT from 06/06/2016. FINDINGS: Osteopenia. Hip joints congruent. Pubic symphysis and sacroiliac joints congruent. Bony pelvis intact. No evidence of femoral neck fracture. Degenerative changes of the lower lumbar spine. Moderate stool burden noted in the right colon. IMPRESSION: 1. No acute osseous injury of the pelvis. 2. Osteopenia. Electronically signed by: Farhad Mcbride M.D. 09/16/2017 4:12 PM HEAD WITHOUT CONTRAST (CT) CLINICAL HISTORY: 77 years-old Male presenting with AMS, increasing confusion, known aneurysm, history of stroke. TECHNIQUE: Multidetector CT imaging of the head was performed without the use of intravenous contrast. IV contrast: None. A dose lowering technique was used consistent with the principles of ALARA (as low as reasonably achievable). COMPARISON: 05/09/2017. CT DOSE (mGy.cm): The estimated cumulative dose is 920.[address] cervical spine. 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 Proportional ventricular and sulcal prominence, likely age-related parenchymal volume loss. Periventricular and subcortical white matter hypoattenuation, nonspecific but likely indicative of chronic small vessel ischemic change. Encephalomalacia in the left basal ganglia and left thalamus. Likely old infarct. No mass effect or midline shift. No hemorrhage or acute territorial infarct. No extra-axial fluid collection. Paranasal sinuses and mastoid air cells clear. Calvarium intact. Bilateral [place] lenses are absent. IMPRESSION: 1. No acute intracranial pathology. Chronic small vessel ischemic change and stable encephalomalacia in the left basal ganglia. L FEMUR 2 VIEWS ROUTINE CLINICAL HISTORY: 77 years-old Male presenting with L fem pain . TECHNIQUE: Frontal and lateral views of the left femur were obtained. COMPARISON: None. FINDINGS: Left hip joint congruent. Knee joint congruent. No acute fracture or malalignment. No large knee joint effusion. Osteopenia. Atherosclerosis. Anastomotic suture line suggested in the pelvis. IMPRESSION: No acute osseous injury of the left femur. Electronically signed by: Farhad Mcbride M.D. 09/16/2017 4:15 PM CERVICAL SPINE W/O CLINICAL HISTORY: 77 years-old Male presenting with fall hit head. TECHNIQUE: Multidetector CT of the cervical spine was performed without the use of intravenous contrast. IV contrast: None. A dose lowering technique was used consistent with the principles of ALARA (as low as reasonably achievable). COMPARISON: Correlation made to CT angiography of the neck from 04/27/2017. CT DOSE (mGy.cm): The estimated cumulative dose is 920.30 mGy.cm. 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 Normal cervical lordosis. Vertebral bodies maintain normal height and alignment. Intervertebral disc height loss noted at C6-7 with the remainder of the disc heights are observed. Disc osteophyte complexes noted at multiple levels, most strikingly at C3-4, where there is suggestion of disc extrusion with cranial migration area this appears to cause significant effacement of the paracentral ventral thecal sac. Disc osteophyte complexes at the remaining levels results and lesser degrees of paracentral ventral thecal sac effacement. Uncovertebral hypertrophy to varying degrees throughout the cervical spine, greatest at C6-7, where there is moderate right and mild left osseous neural foraminal narrowing. No acute fracture or subluxation. Smooth interlobular septal thickening at the lung apices with scattered groundglass opacities suggested. IMPRESSION: 1. No acute osseous injury of the cervical spine. 2. Multilevel degenerative changes including suggestion of a disc extrusion with cranial migration and resulting significant effacement of the spinal canal at C3-4. Lesser degrees of spinal canal narrowing at additional levels. Neural foraminal narrowing at C6-7. 3. Interlobular septal thickening at the lung apices could suggest volume overload. Electronically signed by: Farhad Mcbride M.D. 09/16/2017 3:54 PM CHEST 1 VW FRONT-NOT PORTABLE CLINICAL HISTORY: 77 years-old Male presenting with LEG PAIN. TECHNIQUE: Portable upright AP view of the chest was obtained. COMPARISON: 07/06/2017. FINDINGS: Left-sided pacer with leads to the right atrium, coronary sinus, and right ventricular apex. Median sternotomy wires and mediastinal surgical clips unchanged. Atherosclerosis of the aortic arch. Cardiac silhouette enlarged, unchanged. Mild prominence of pulmonary vasculature. Persistent left basilar bandlike opacity. Overall diffuse prominence of lung markings, unchanged. Slight blunting of the left costophrenic angle, unchanged. No pneumothorax. Suggestion of osteopenia. Bilateral degenerative changes in the glenohumeral joints. Cholecystectomy clips. IMPRESSION: 1. Stable left basilar atelectasis and trace left pleural effusion. 2. Cardiomegaly. 3. Prominence of pulmonary vasculature and diffuse lung markings could indicate volume overload. Electronically signed by: Farhad Mcbride M.D. 09/16/2017 4:11 PM Consultations: Gallery Manager Dr. Morales, Neurologist Dr. Lopez Pending Studies/Follow-Up: Please refer to hospital course below. Medication Reconciliation New Medications: Docusate Sodium (Docusate Sodium) 100 Mg Cap 100 MG PO BID for 30 Days Furosemide (Furosemide) 40 Mg Tab 40 MG PO QAM for 30 Days Metoprolol Tartrate (Lopressor) 25 Mg Tab 50 MG PO BID for 30 Days Continued Medications: Acetaminophen (Tylenol Arthritis Ext Rel) 650 Mg Cplt 650 MG PO Q8H PRN for Pain for 30 Days (This prescription has been renewed) Aspirin (Aspirin Ec) 81 Mg Tab 81 MG PO QPM for 30 Days (This prescription has been renewed) Clopidogrel Bisulfate (Clopidogrel) 75 Mg Tab 75 MG PO HS for 30 Days (This prescription has been renewed) Coenzyme Q10 (Ubidecarenone) (Coenzyme Q-10) 100 Mg Cap 2 TABS PO BID for 30 Days (This prescription has been renewed) Finasteride (Finasteride) 5 Mg Tab 5 MG PO QAM for 30 Days (This prescription has been renewed) Hydralazine Hcl (Apresoline) 50 Mg Tab 25 MG PO TID for 30 Days (This prescription has been renewed) Hyoscyamine Sulfate (Hyoscyamine Sulfate) 0.125 Mg Tab 0.125 MG PO Q4H PRN for Cramping for 30 Days (This prescription has been renewed ) Levetiracetam (Keppra) 500 Mg Tab 500 MG PO BID for 30 Days (This prescription has been renewed) Losartan Potassium (Cozaar) 100 Mg Tab 100 MG PO QAM for 30 Days (This prescription has been renewed) Magnesium Oxide (Mg Supplement (Magnesium Oxide) 400 Mg Tab 400 MG PO QDL for 30 Days (This prescription has been renewed) Multiple Vitamins W/ Minerals (Centrum Men) 1 Tab Tab 1 TAB PO QAM for 30 Days (This prescription has been renewed) Nitroglycerin (Nitrostat) 0.4 Mg Tab 0.4 MG SL UD PRN for Chest Pain for 30 Days (This prescription has been renewed) Nystatin (Nystatin Cream) 90 Appln/30 Gm Cr 0 EXT DAILY PRN for RASH for 30 Days (This prescription has been renewed) APPLY TO AFFECTED AREA BID Oxycodone Immediate Rel Tab (Roxicodone Ir) 5 Mg Tab 1 TAB PO DAILY PRN for Pain, #10 TAB 0 Refills (This prescription has been renewed) Potassium Chloride (Micro-K Ext Rel) 10 Meq Capcr 10 MEQ PO DAILY for 30 Days (This prescription has been renewed) Rosuvastatin Calcium (Rosuvastatin Calcium) 10 Mg Tab 10 MG PO DAILY for 30 Days (This prescription has been renewed) Sertraline HCl (Sertraline HCl) 50 Mg Tab 50 MG PO QDL for 30 Days (This prescription has been renewed) Discontinued Medications: Carvedilol (Coreg) 25 Mg Tab 25 MG PO QAM, TAB Carvedilol (Coreg) 25 Mg Tab 37.5 MG PO QPM, TAB Furosemide (Lasix) 40 Mg Tab 40 MG PO WK, TAB Furosemide (Lasix) 40 Mg Tab 20 MG PO DAILY, TAB Potassium Chloride (K-Tabs) 10 Meq Tab 20 MEQ PO WK Prednisone (Prednisone) 50 Mg Tab 50 MG PO DIRECTED Admission Information HPI (per Admitting provider): This is a 77 year old male with a complex past medical history including CAD s/ p CABG and stents, hx. of complete heart block s/p pacemaker in situ, chronic severe cardiomyopathy and systolic CHF with EF around 25%, HTN, HLD, DM2, hx. of CVA, hx. of brain aneurysm, prior hx. of colorectal cancer s/p resection/chem /radiation - presents with a few week history of worsening confusion, weakness and a fall. As per , who is the primary historian - she tells me that after his stroke in 2016, he has had difficulty with expressive aphasia - in the past few weeks though, he is more confused, does not know where is at times. He has been complaining about headaches more often, and was seen by neurosurgery at [place]. Has had multiple CTAs in the past, recently showing a R MCA Aneurysm. Plan was for patient to go for a Digital Subtraction Angiography as per neurosurgery; planned for Monday (09/20/17). As per , patient also has been becoming short of breath at night. He has been exerted more energy to breath as per . There was some swelling in the lower extremities which is now resolved. Earlier, prior to arrival, patient was walking with his walker, and he fell backwards. He was grabbing his L hip and complained that it was painful. brought him in for further evaluation. Patient is lying comfortably; answers "yes" or "no" to some questions. Physical Exam (per Admitting): General Appearance: no apparent distress Head: normocephalic, atraumatic Eyes: normal inspection ENT: hearing grossly normal Neck: supple Respiratory/Chest: no respiratory distress, no accessory muscle use, + decreased breath sounds Cardiovascular: regular rate, rhythm, no edema, no murmur, + pertinent finding (+pacer) Abdomen/GI: normal bowel sounds, non tender, soft Extremities/Musculoskelatal: normal inspection, no calf tenderness, normal capillary refill, no pedal edema, normal range of motion Neurologic/Psych: alert, + disoriented, + pertinent finding (chronic expressive aphasia) Skin: normal color Lymphatic: no adenopathy Hospital Course Patient is a 77 yr old male with a complex past medical history including CAD s/ p CABG and stents, hx. of complete heart block s/p pacemaker in situ, chronic severe cardiomyopathy and systolic CHF with EF around 25%, HTN, HLD, hx. of CVA , hx. of brain aneurysm, prior hx. of colorectal cancer s/p resection/chem/ radiation who presents with few weeks history of worsening confusion, weakness, fall, and worsening shortness of breath, orthopnea SUSTAINED VENTRICULAR TACHYCARDIA - Acute on Chronic Systolic CHF likely secondary to above - Dr. Morales consulted, pacemaker interrogated patient declined ICD upgrade no antiarrhythmics given underlying iodine allergy and QTc prolongation - Coreg changed to Metoprolol 50mg BID no recurrence since medication was changed Lasix increased to 40mg po daily remained euvolemic per Cardiology, stable from Cardiac standpoint - continue Metoprolol 50mg BID, Lasix 40mg po daily monitor volume status and crea ff up with Gallery Manager Dr. Morales in 3-4 weeks WEAKNESS/FALL - per , patient has been having falls at home, attributed to muscle weakness secondary to Statin thus, Cardiology changed to Rosuvastatin recently - Falls secondary to dizziness induced by rhythm issues ? - Fall Precautions please - continue PT/OT in [facility] HISTORY OF RIGHT MCA ANEURYSM - scheduled for DSA to evaluated 4mm aneurysm, R MCA - discussed with Neuro Surgeon in [facility] Dr. Mcmahon will defer DSA study for now as procedure not urgent, small aneurysm not likely causing his intermittent headaches they will call patient re: new schedule for DSA CERVICAL STENOSIS: C3-4 Disc Extrusion -- CT Spine: Multilevel degenerative changes including suggestion of a disc extrusion with cranial migration and resulting significant effacement of the spinal canal at C3-4. Lesser degrees of spinal canal narrowing at additional levels. Neural foraminal narrowing at C6-7. -- Ortho Spine consulted : Dr. Moctezuma, does not present with obvious signs of neuropathy at this time, recommend outpatient CT myelogram CAD s/p CABG no chest pain Troponin X 3: negative continue home medications: aspirin, plavix, statin, Metoprolol HTN Stable continue Metoprolol DVT px heparin SQ-- > discontinued due to brain aneurysm scds Code Status: FULL CODE Disposition: transfer to [facility] today patient to be followed by Dr. Lindo in [facility] ff up with Gallery Manager Dr. Morales in 3-4 weeks ff up with Neurosurgery in [facility] as scheduled Total time spent on discharge = 45 minutes This includes examination of the patient, discharge planning, medication reconciliation, and communication with other providers. Discharge Instructions Discharge Instructions Date of Service Sep 22, 2017. Admission Reason for Admission: Chronic Systolic Chf,Nyha Class 3 Discharge Discharge Diagnosis / Problem: SUSTAINED VENTRICULAR TACHYCARDIA, ACUTE ON CHRONIC SYSTOLIC CHF Discharge Goals Goal(s): Diagnostic testing, Therapeutic intervention Activity Recommendations Activity Level: Assistance Required Therapies: Physical Therapy, Occupational Therapy . Additional Information Patient informed of condition: Yes Advance Directives: No (UNKNOWN) DNR: No (PATIENT IS A FULL CODE) Level of Care: Skilled Communicable Disease: No Prognosis: Stable Instructions / Follow-Up Instructions / Follow-Up MONITOR VOLUME STATUS CLOSELY (RE: CHF). MONITOR HEART RATE (RE: COREG CHANGED TO METOPROLOL FOR SVT's). FALL PRECAUTIONS PLEASE. PLEASE REFER TO ACCOMPANYING DISCHARGE SUMMARY FOR FURTHER DETAILS. Current Hospital Diet Patient's current hospital diet: AHA Diet (Heart Healthy) Discharge Diet Recommended Diet: AHA Diet (Heart Healthy) Fluid Restriction: 1800 ml (7 cups) Procedures Procedures Performed: CT HEAD, CT CERVICAL SPINE, PACEMAKER INTERROGATION Pending Studies Studies pending at discharge: yes List of pending studies: DSA C/O [facility]- DR. MCMAHON Physician Orders On Transfer Special Precautions: MONITOR VOLUME STATUS CLOSELY (RE: CHF). MONITOR HEART RATE (RE: COREG CHANGED TO METOPROLOL FOR SVT's). FALL PRECAUTIONS PLEASE. PLEASE REFER TO ACCOMPANYING DISCHARGE SUMMARY FOR FURTHER DETAILS. Medical Emergencies . Who to Call and When: Medical Emergencies: If at any time you feel your situation is an emergency, please call 911 immediately. . Non-Emergent Contact Non-Emergency issues call your: Primary Care Provider, Gallery Manager, Neurologist Call Non-Emergent contact if: you have a fever, you have any medication questions . Past History Medical & Surgical History: (1) Chest pain (2) Seizure (3) Right humeral fracture (4) Elevated blood pressure reading (5) Sick sinus syndrome (6) Peripheral vascular disease (7) History of CVA (cerebrovascular accident) (8) History of colorectal cancer (9) Clostridium difficile infection (10) DVT (deep venous thrombosis) (11) Seizure disorder (12) CHF exacerbation (13) Pacemaker at end of battery life (14) Chronic systolic CHF (congestive heart failure), NYHA class 3 (15) Rib pain on right side (16) CHF (congestive heart failure) (17) Altered mental status (18) Fall (19) Left bundle branch block (20) Dyslipidemia (21) Carotid disease, bilateral (22) Diabetes mellitus, type II (23) Benign prostatic hyperplasia (24) Hypertension (25) History of skin cancer (26) Malignant neoplasm of rectum (27) Coronary artery disease (28) GERD (gastroesophageal reflux disease) (29) AV block . "Provider Documentation" section prepared by Juan Pablo Ferguson. . Core Measure Problem Core Measures: None
== END 2017-09-22 19:13 | DRG 308 ==
LOC: C.EDB 14:00 → C.MED 17:16 → ENRESERV 18:04 → CANRESERV 18:04 → ENRESERV 18:05 → C.2T 09-17 10:50
PROVIDERS: ADMIT Family Medicine; ATTEND Internal Medicine
DX: I47.2 Ventricular tachycardia (principal); I50.23 Acute on chronic systolic (congestive) heart failure; I69.351 Hemiplegia and hemiparesis following cerebral infarction affecting right dominant side; M25.551 Pain in right hip; I67.1 Cerebral aneurysm, nonruptured; M48.02 Spinal stenosis, cervical region; M50.20 Other cervical disc displacement, unspecified cervical region; I69.320 Aphasia following cerebral infarction; I69.398 Other sequelae of cerebral infarction; G40.909 Epilepsy, unspecified, not intractable, without status epilepticus; I25.10 Atherosclerotic heart disease of native coronary artery without angina pectoris; E78.5 Hyperlipidemia, unspecified; E11.9 Type 2 diabetes mellitus without complications; I11.0 Hypertensive heart disease with heart failure; Z51.81 Encounter for therapeutic drug level monitoring; Z79.899 Other long term (current) drug therapy; Z79.82 Long term (current) use of aspirin; Z79.02 Long term (current) use of antithrombotics/antiplatelets; Z79.52 Long term (current) use of systemic steroids; I25.5 Ischemic cardiomyopathy; Z91.81 History of falling; Z95.1 Presence of aortocoronary bypass graft; Z95.5 Presence of coronary angioplasty implant and graft; Z95.0 Presence of cardiac pacemaker; Z85.038 Personal history of other malignant neoplasm of large intestine; Z92.21 Personal history of antineoplastic chemotherapy; Z92.3 Personal history of irradiation; Z86.718 Personal history of other venous thrombosis and embolism; Z85.828 Personal history of other malignant neoplasm of skin; Z82.49 Family history of ischemic heart disease and other diseases of the circulatory system; Z83.3 Family history of diabetes mellitus; Z80.7 Family history of other malignant neoplasms of lymphoid, hematopoietic and related tissues

== ENCOUNTER → 2017-11-30 | Outpatient (CLI) | payer OTHER ==
[~2017-11-30] MED LIST changes: -APR50 PO; -CARV25TA2 PO; +CLC100 PO; -FRS/40 PO; +HYDR-4717 PO; +LPR25 PO; +LSX40 PO; +OPTIRAY 320 IV PRN; -PLV75 PO; -POTA10TA PO; +ROSU10TA35 PO
--- NOTE | 2017-11-30 15:42 | DIAGNOSTIC IMAGING REPORT ---
ABD/PELVIS IV AND ORAL CONT CT DOSE: 670.61 mGycm HISTORY: Pain LLQ PAIN TECHNIQUE: Multiaxial CT images of the abdomen and pelvis were performed following the use of intravenous and oral contrast. A dose lowering technique was utilized adhering to the principles of ALARA. COMPARISON STUDY: 06/06/2016 FINDINGS: Unchanging infiltrative changes left and to a lesser extent right base. Components of pleural reactive changes left as well as right basilar considered chronic. Prior median sternotomy. Moderate stable cardiomegaly. Prior cholecystectomy. Mild postprocedure biliary ductal prominence. This cystic lesion of the pancreas procedure described as not well seen currently. There is no dilatation of the pancreatic duct. Kidneys enhance uniformly. Mild cortical scarring of both kidneys is present. There is no evidence for hydronephrosis. The bowel pattern of the abdomen is nonobstructive. The post therapeutic changes to the presacral and perirectal soft tissues are noted. There are findings of a low sigmoid anastomosis. The prostate is enlarged. There are findings of mild bladder wall thickening. There is no evidence for abscess collection or obstructive change. IMPRESSION: 1. Stable postoperative changes low pelvis. 2. Pancreatic nodule previously described is not seen currently. 3. Prior cholecystectomy. 4. Chronic lung base parenchymal fibrotic and interstitial change. The above report was generated using voice recognition software. It may contain grammatical, syntax or spelling errors. Electronically signed by: Dirk Castellanos M.D. 11/30/2017 3:40 PM Dictated Date/Time: 11/30/2017 3:35 PM
== END | disposition home or self-care (01) ==
LOC: C.CTS 14:40
PROVIDERS: ATTEND Nurse Practitioner
DX: R10.32 Left lower quadrant pain (principal); Z90.49 Acquired absence of other specified parts of digestive tract

== ENCOUNTER → 2018-01-01 | Outpatient (CLI) | payer OTHER ==
[~2018-01-01] MED LIST changes: -OPTIRAY 320 IV PRN
--- NOTE | 2018-01-01 18:41 | DIAGNOSTIC IMAGING REPORT ---
BONE SCAN 3PHASE WHOLE BODY CLINICAL HISTORY: Left hip pain COMPARISON STUDY: CT scan dated 11/30/2017 FINDINGS: The patient was injected with 25.1 mCi of technetium 99m MDP. A vascular sequence centered on the pelvis was normal. Blood pool images of the pelvis were normal. Three-hour delayed whole body scans were supplemented with camera spot images of the pelvis and hips. Activity within the pelvis and hips is normal. Whole-body images demonstrate a focus of increased activity at the L1 level. This corresponds to a superior endplate compression fracture as visualized on the prior CT scan. IMPRESSION: 1. Uptake within the symptomatic pelvis and hips is normal 2. Focus of increased activity at the L1 level. This corresponds to a superior endplate compression fracture as visualized on the November 2017 CT scan Electronically signed by: Jacky Bower M.D. 01/01/2018 6:40 PM Dictated Date/Time: 01/01/2018 6:37 PM
== END | disposition home or self-care (01) ==
LOC: C.NUCL 14:39
PROVIDERS: ATTEND Orthopaedic Surgery Sports Medicine
DX: M25.552 Pain in left hip (principal); R93.7 Abnormal findings on diagnostic imaging of other parts of musculoskeletal system

== ENCOUNTER 2018-11-11 20:32 | Observation (INO) ==
[2018-11-11] MEDS ORDERED: SODIUM CHLORIDE 0.9% 500 ML IV SCH (21:30)
[2018-11-11 21:35] LABS: Basophils # (auto) 0.02 K/uL (0-0.2); Basophils % (auto) 0.3 %; Eosinophils # (auto) 0.11 K/uL (0-0.5); Eosinophils % (auto) 1.8 %; Hematocrit (blood only) 41.4 % (42-52); Hemoglobin 13.8 g/dL (14.0-18.0); Immature Granulocytes # (auto) 0.07 K/uL (0.00-0.02); Immature Granulocytes % (auto) 1.1 %; Lymphocytes # (auto) 1.04 K/uL (1.2-3.4); Mean Corpuscular Hgb Conc 33.3 g/dL (32-36); Mean Corpuscular Volume 94.7 fL (80-100); Mean Platelet Volume 9.3 fL (7.4-10.4); Monocytes # (auto) 0.49 K/uL (0.11-0.59); Neutrophils % (auto) 71.8 %; Platelet Count 123 K/uL (130-400); RDW Coefficient of Variation 13.7 % (11.5-14.5); RDW Standard Deviation 46.7 fL (36.4-46.3); Red Blood Count 4.37 M/uL (4.7-6.1); White Blood Count 6.13 K/uL (4.8-10.8)
[2018-11-11 21:53] LABS: Alanine Aminotransferase 31 U/L (12-78); Albumin Level 3.5 gm/dl (3.4-5.0); Aspartate Aminotransferase 24 U/L (15-37); BUN Creatinine Ratio 13.4 (10-20); Bilirubin Direct < 0.1 mg/dl (0-0.2); Blood Urea Nitrogen 20 mg/dl (7-18); Calcium 8.9 mg/dl (8.5-10.1); Carbon Dioxide 30 mmol/L (21-32); Chloride 106 mmol/L (98-107); Est GFR (African American) 52.3; Est GFR (Non-African American) 45.1; Glucose 169 mg/dl (70-99); Magnesium 2.1 mg/dl (1.8-2.4); Potassium 3.9 mmol/L (3.5-5.1); Sodium 142 mmol/L (136-145)
[2018-11-11 21:56] LABS: Albumin Globulin Ratio 0.9 (0.9-2); Alkaline Phosphatase 133 U/L (45-117); Bilirubin,Total 0.5 mg/dl (0.2-1); Creatine Kinase 35 U/L (39-308); Globulin 3.7 gm/dl (2.5-4.0); NT Pro B Type Natriuretic Pept 1307 pg/ml (0-1800); Phosphorus 2.6 mg/dl (2.5-4.9); Total Protein 7.2 gm/dl (6.4-8.2); Troponin I 0.016 ng/ml (0-0.045)
--- NOTE | 2018-11-11 22:16 | XRay Report ---
SINGLE VIEW CHEST CLINICAL HISTORY: Atypical chest pain. FINDINGS: An AP, portable, upright chest radiograph is compared to chest x-ray and chest CT dated 09/07/2018. The examination is degraded by portable technique and patient rotation. A 3-lead cardiac pac emaker is unchanged in position and partially obscures the left lower chest. The patient is status po st midline sternotomy. The the heart is enlarged and there is atherosclerotic calcification of the th oracic aorta. The pulmonary vasculature is noncongested. There is elevation of the left hemidiaphragm with left basilar opacities. The right lung appears clear. A small left pleural effusion is noted. N o pneumothorax is seen. The skeletal structures are osteopenic. The bony thorax is grossly intact. De generative changes noted in the shoulders and thoracic spine. Cholecystectomy clips are noted in the right upper quadrant. IMPRESSION: 1. Cardiomegaly and cardiac pacemaker. There is no radiographic evidence of congestive failure. 2. Left basilar airspace opacities are similar to previous and may represent chronic change and/or an infectious/inflammatory pneumonitis. Clinical correlation will be required. 3. A small left pleural effusion is noted. Electronically signed by: Fredy Gould M.D. 11/11/2018 10:15 PM
[2018-11-11] MEDS ORDERED: methylPREDNISolone 60 MG in SYRINGE 1 ML IV STA (22:19)
[2018-11-11] MEDS ORDERED: OPTIRAY 320 125ml IV PRN (23:22)
[2018-11-12 01:01] LABS: Appearance Urine Clear (Clear); Bilirubin Urine Negative (Negative); Color Urine Yellow; Glucose Urine UA Negative (Negative); Ketones Urine Negative (Negative); Leukocyte Esterase Urine Negative (Negative); Nitrite Urine Negative (Negative); Protein Urine Negative (Negative); Specific Gravity Urine > 1.045 (1.000-1.030); Urobilinogen Urine Negative (Negative)
--- NOTE | 2018-11-12 01:19 | Emergency Department Note ---
Entered by Ba Sommers acting as a scribe for Cesar Cain MD History of Present Illness General Chief complaint: Leg Weakness, Bilateral Time Seen by Provider: 11/11/18 21:00 Source: patient and family () History of Present Illness Provider complaint: bilateral leg weakness Onset (ago): day(s) (today) Location: lower extremity, left and right Pain Consistency: + other (sudden) Quality: + other (weakness) Associated symptoms: + weakness (generalized); no cough and no nausea/vomiting The patient is a 78 year old male with a history of seizure disorder, CVA, HTN, DVT, CAD, and a left bundle branch block who presents to the Emergency Room with complaints of bilateral leg weakness that started suddenly today. The patient's states that the patient has been feeling tired for the past few days. She also reports that the patient was going to the bathroom today where he sat down to urinate and when he stood up, he stated that his legs felt too weak to walk. The patient denies that it felt like his legs fell asleep. The patient's states that the patient was able to make it to the bed, but was unable to stand back up. She also states that the patient had a stroke about a year ago and does have residual weakness in his left leg, but the patient denies ever feeling this weak. The patient denies any congestion, nausea, or vomiting. The patient's states that the patient was complaining about being itchy this morning and took two Benedryl and then took four Benedryl later in the day. She also reports that the patient takes two 500 mg Kepra at night time daily. Home Medications Home Medications Medication Instructions Recorded Confirmed Type aspirin [Aspir-Low] 81 mg PO HS 09/07/18 11/11/18 History calcium polycarbophil [Fiber-Tabs] 1 tab PO QAM 09/07/18 11/11/18 History carvedilol [Coreg] 18.75 mg PO BIDM 09/07/18 11/11/18 History clopidogrel [Plavix] 75 mg PO HS 09/07/18 11/11/18 History dicyclomine 20 mg PO Q6 PRN 09/07/18 11/11/18 History diphenhydramine HCl [Benadryl] 50 mg PO DIRECTED PRN 09/07/18 11/11/18 History furosemide [Lasix] 10 mg PO QAM 09/07/18 11/11/18 History hydralazine 25 mg PO TIDM 09/07/18 11/11/18 History levetiracetam [Keppra XR] 1,000 mg PO HS 09/07/18 11/11/18 History losartan [Cozaar] 100 mg PO QAM 09/07/18 11/11/18 History multivitamin 1 tab PO QDD 09/07/18 11/11/18 History nitroglycerin [Nitrostat] 0.4 mg SUBLINGUAL UD PRN 09/07/18 11/11/18 History oxycodone [Roxicodone] 5 mg PO Q6 PRN 09/07/18 11/11/18 History potassium chloride [Klor-Con 10] 10 meq PO QDD 09/07/18 11/11/18 History sertraline [Zoloft] 50 mg PO QDL 09/07/18 11/11/18 History magnesium 200 mg PO DAILY PRN 11/11/18 11/11/18 History Allergies Allergy/AdvReac Type Severity Reaction Status Date / Time iodine Allergy Severe airway Verified 11/11/18 21:04 edema tramadol Allergy Severe seizures Verified 11/11/18 21:04 oxycodone Allergy Unknown "itchiness Verified 11/11/18 21:04 all over" felodipine AdvReac Mild cough Verified 11/11/18 21:04 ANCELMO Inhibitors AdvReac Unknown COUGHING Verified 11/11/18 21:04 codeine AdvReac Unknown hallucinations, Verified 11/11/18 21:04 depression Past Med/Surg History Medical History Left bundle branch block (Chronic) Dyslipidemia (Chronic) Carotid disease, bilateral (Chronic) "asymptomatic" Diabetes mellitus, type II (Chronic) Benign prostatic hyperplasia (Chronic) Hypertension (Chronic) History of skin cancer (Chronic) Malignant neoplasm of rectum (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/15) "Rectal bleeding Status post colonoscopy and biopsy 04/02/2015 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 Status post endoscopic ultrasound stage [id number] Neoadjuvant radiation and chemotherapy Chemotherapy comprised of Xeloda Status post completion of radiation therapy 06/24/2015 received 5460 cGy Status post rectosigmoid resection 08/27/2015 ypT2 ypN0 M0 Status post ileostomy closure 04/14/2016, gait by small bowel obstruction and then hemorrhage Status post CVA and then slow wound healing" On 01/20/16 16:12 Celeste Burrell wrote "Rectal bleeding Status post colonoscopy and biopsy 04/02/2015 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 Status post endoscopic ultrasound stage [id number] Neoadjuvant radiation and chemotherapy Chemotherapy comprised of Xeloda Status post completion of radiation therapy 06/24/2015 received 5460 cGy Status post rectosigmoid resection 08/27/2015 ypT2 ypN0 M0" On 07/02/15 10:41 Celeste Burrell wrote "Rectal bleeding Status post colonoscopy and biopsy 04/02/2015 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 Status post endoscopic ultrasound stage [id number] Neoadjuvant radiation and chemotherapy Chemotherapy comprised of Xeloda Status post completion of radiation therapy 06/24/2015 received 5460 cGy" Coronary artery disease (Chronic) "s/p ID" GERD (gastroesophageal reflux disease) (Chronic) AV block (Chronic) "s/p pacemaker" Surgical History Status post coronary artery bypass grafting (Chronic) "Dr. Stephens [facility] – [place] DIAZ-LAD, SVG left circumflex" Status post cardiac pacemaker procedure (Chronic) "initial 2005, generator change 2011" Status post cholecystectomy (Chronic) Status post tonsillectomy (Chronic) Status post shoulder surgery (Chronic) S/P colon resection (Chronic) H/O ileostomy (Chronic) Family History Other Family history non-contributory Social History Current Living Situation: Spouse Other Information That Helps Us Care for You: No Feels Safe at Home: Yes Safety Concerns: Feels Safe At This Time Smoking Status: Never smoker Hx Alcohol Use: No Hx Substance Use: No Beliefs That Will Affect Care: None Preferred Language: Spanish Communication Ability: Impaired Communication Ability Comment: some slurred speech and 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 and A total of 10 systems reviewed and were otherwise negative Physical Exam Vital Signs Vital Signs - 24 hr 11/11/18 20:30 11/11/18 21:00 11/11/18 22:00 Temperature 36.4 C L Temperature Source Oral Sepsis Recent Fever Within 48 Hours No Sepsis New/Unexplained Change in Mental Status No Sepsis Action Taken by Nursing No Action Required Pulse Rate - Lying Pulse Rate 79 Pulse Rate [Left Finger] 60 Pulse Rhythm [Left Finger] Pulse Strength [Left Finger] Respiratory Rate 24 25 H Respiratory Effort / Characteristics Non-Labored Respiratory Depth Normal Respiratory Pattern Blood Pressure - Lying Blood Pressure 160/77 H Blood Pressure [Left Arm] 147/73 H Blood Pressure Mean 104 Blood Pressure Mean [Left Arm] 97 Blood Pressure Position [Left Arm] Pulse Oximetry 94 95 94 Oxygen Delivery Method Room Air Room Air Room Air 11/12/18 00:58 11/12/18 03:07 11/12/18 03:40 Temperature 36.6 C Temperature Source Oral Sepsis Recent Fever Within 48 Hours Sepsis New/Unexplained Change in Mental Status Sepsis Action Taken by Nursing Pulse Rate - Lying Pulse Rate 60 Pulse Rate [Left Finger] 68 64 Pulse Rhythm [Left Finger] Regular Pulse Strength [Left Finger] Normal Respiratory Rate 18 20 18 Respiratory Effort / Characteristics Non-Labored Spontaneous Respiratory Depth Normal Respiratory Pattern Regular Blood Pressure - Lying Blood Pressure 166/85 H Blood Pressure [Left Arm] 178/86 H 187/94 H Blood Pressure Mean Blood Pressure Mean [Left Arm] 116 125 Blood Pressure Position [Left Arm] Lying Pulse Oximetry 94 95 Oxygen Delivery Method Room Air Room Air 11/12/18 04:18 11/12/18 04:23 11/12/18 06:16 Temperature Temperature Source Sepsis Recent Fever Within 48 Hours Sepsis New/Unexplained Change in Mental Status Sepsis Action Taken by Nursing Pulse Rate - Lying Pulse Rate 67 Pulse Rate [Left Finger] 59 L Pulse Rhythm [Left Finger] Pulse Strength [Left Finger] Respiratory Rate Respiratory Effort / Characteristics Non-Labored Respiratory Depth Normal Respiratory Pattern Regular Blood Pressure - Lying Blood Pressure Blood Pressure [Left Arm] 179/93 H Blood Pressure Mean Blood Pressure Mean [Left Arm] 121 Blood Pressure Position [Left Arm] Pulse Oximetry Oxygen Delivery Method Room Air 11/12/18 08:00 11/12/18 10:12 11/12/18 10:45 Temperature Temperature Source Sepsis Recent Fever Within 48 Hours Sepsis New/Unexplained Change in Mental Status Sepsis Action Taken by Nursing Pulse Rate - Lying 60 Pulse Rate 60 Pulse Rate [Left Finger] Pulse Rhythm [Left Finger] Pulse Strength [Left Finger] Respiratory Rate Respiratory Effort / Characteristics Respiratory Depth Respiratory Pattern Blood Pressure - Lying 160/77 H Blood Pressure Blood Pressure [Left Arm] Blood Pressure Mean Blood Pressure Mean [Left Arm] Blood Pressure Position [Left Arm] Pulse Oximetry 95 95 Oxygen Delivery Method 11/12/18 11:37 11/12/18 15:59 Temperature 36.4 C L 36.5 C Temperature Source Oral Oral Sepsis Recent Fever Within 48 Hours Sepsis New/Unexplained Change in Mental Status Sepsis Action Taken by Nursing Pulse Rate - Lying Pulse Rate Pulse Rate [Left Finger] 62 64 Pulse Rhythm [Left Finger] Pulse Strength [Left Finger] Respiratory Rate 20 20 Respiratory Effort / Characteristics Respiratory Depth Respiratory Pattern Blood Pressure - Lying Blood Pressure Blood Pressure [Left Arm] 155/77 H 156/76 H Blood Pressure Mean Blood Pressure Mean [Left Arm] 103 102 Blood Pressure Position [Left Arm] Lying Pulse Oximetry 96 94 Oxygen Delivery Method Room Air GENERAL: Awake, alert, chronically ill appearing, in no distress HENT: Normocephalic, atraumatic. Oropharyn with dry mucous membranes and otherwise unremarkable. EYES: Normal conjunctiva. Sclera non-icteric. NECK: Supple. No nuchal rigidity. FROM. No JVD. RESPIRATORY: Clear to auscultation. CARDIAC: Regular rate, normal rhythm. Extremities warm and well perfused. Pulses equal. ABDOMEN: Soft, non-distended. No tenderness to palpation. No rebound or guarding. No masses. RECTAL: Deferred. MUSCULOSKELETAL: Chest examination reveals no tenderness. The back is symmetrical on inspection without obvious abnormality. There is no CVA tenderness to palpation. No joint edema. LOWER EXTREMITIES: Calves are equal size bilaterally and non-tender. No edema. No discoloration. NEURO: Normal sensorium. CN II-XII grossly intact. 4/5 strength of right upper and lower extremities. 4+/5 strength of left upper and lower extremity. SKIN: No rash or jaundice noted. Course 2107: Past medical records reviewed. The patient was evaluated in room B3B, and a complete history and physical examination were performed. 0039: I reviewed the patient's case with Stoney Haider Hospitalist. He will evaluate the patient for further management. Consultations Consultation #1: Hadely Haiderer Hospitalist Time: 00:39 Administered Medications Carvedilol (Coreg) 3.125 mg PO BIDM [facility] Stop: 12/12/18 05:29 Last Admin: 11/12/18 06:03 Dose: 3.125 mg Insulin Aspart (Novolog Flexpen) 0 units SC ACHS [facility] Stop: 12/12/18 05:29 Last Admin: 11/12/18 11:44 Dose: 2 units Admin: 11/12/18 08:35 Dose: 1 units Admin: 11/12/18 06:02 Dose: 1 units Miscellaneous (Order Awaiting Action) 1 ea N/A QS [facility] Stop: 12/12/18 06:29 Last Admin: 11/12/18 15:05 Dose: Not Given Admin: 11/12/18 08:39 Dose: Not Given Admin: 11/12/18 06:26 Dose: Not Given Rosuvastatin Calcium (Crestor) 5 mg PO QAM [facility] Stop: 12/12/18 08:59 Last Admin: 11/12/18 08:35 Dose: 5 mg Sertraline HCl (Zoloft) 50 mg PO QDL [facility] Stop: 12/12/18 11:29 Last Admin: 11/12/18 11:34 Dose: 50 mg Discontinued Medications Aspirin (Ecotrin) 81 mg PO NOW STA Stop: 11/12/18 01:42 Last Admin: 11/12/18 02:16 Dose: Not Given Aspirin (Ecotrin Ectab) Confirm Administered Dose 81 mg PO .STK-MED ONE Stop: 11/12/18 02:15 Last Admin: 11/12/18 02:16 Dose: 81 mg Sodium Chloride (Nss) 500 mls @ 999 mls/hr IV .Q31M HETAL Stop: 11/11/18 22:00 Last Infusion: 11/11/18 22:07 Dose: 0 mls/hr Admin: 11/11/18 21:36 Dose: 999 mls/hr Methylprednisolone 60 mg/ (Syringe) 1.96 mls @ 1.5 mls/min IV NOW STA Stop: 11/11/18 22:20 Last Admin: 11/11/18 22:56 Dose: 1.5 mls/min Sodium Chloride (Nss) 500 mls @ 60 mls/hr IV .Q8H20M ONE Stop: 11/12/18 12:01 Last Infusion: 11/12/18 13:39 Dose: 0 mls/hr Admin: 11/12/18 05:19 Dose: 60 mls/hr Ioversol (Optiray 320 125ml) 119 ml IV ONCE PRN PRN Reason: Interaction Checking Stop: 11/15/18 23:21 Last Admin: 11/11/18 23:22 Dose: 119 ml Medical Decision Making Differential Diagnosis Differential diagnosis: Etiologies such as metabolic, infection, hypo/hyperglycemia, electrolyte abnormalities, cardiac sources, intracerebral event, toxicologic, neurologic, as well as others were entertained. Medical Records Attestation: I reviewed the patient's medical records. Home Medications Current Medication List: was personally reviewed by me Laboratory Data Attestation: I reviewed the patient's lab results. Result diagrams: 11/12/18 05:40 11/12/18 05:40 Lab Results 11/11/18 11/11/18 11/11/18 Range/Units 21:00 21:00 21:00 WBC 6.13 (4.8-10.8) K/uL RBC 4.37 L (4.7-6.1) M/uL Hgb 13.8 L (14.0-18.0) g/dL Hct 41.4 L (42-52) % MCV 94.7 (80-100) fL MCH 31.6 (25-34) pg MCHC 33.3 (32-36) g/dL RDW Std Deviation 46.7 H (36.4-46.3) fL RDW Coeff of Arabella 13.7 (11.5-14.5) % Plt Count 123 L (130-400) K/uL MPV 9.3 (7.4-10.4) fL Immature Gran % (Auto) 1.1 % Neut % (Auto) 71.8 % Lymph % (Auto) 17.0 % [place] % (Auto) 8.0 % Eos % (Auto) 1.8 % Baso % (Auto) 0.3 % Immature Gran # (Auto) 0.07 H (0.00-0.02) K/uL Neut # (Auto) 4.40 (1.4-6.5) K/uL Lymph # (Auto) 1.04 L (1.2-3.4) K/uL [place] # (Auto) 0.49 (0.11-0.59) K/uL Eos # (Auto) 0.11 (0-0.5) K/uL Baso # (Auto) 0.02 (0-0.2) K/uL Sodium 142 (136-145) mmol/L Potassium 3.9 (3.5-5.1) mmol/L Chloride 106 (98-107) mmol/L Carbon Dioxide 30 (21-32) mmol/L Anion Gap 6.0 (3-11) BUN 20 H (7-18) mg/dl Creatinine 1.46 H (0.6-1.4) mg/dl Est Cr Clr Drug Dosing 42.0 ml/min Est GFR ( Amer) 52.3 Est GFR (Non-Af Amer) 45.1 BUN/Creatinine Ratio 13.4 (10-20) Glucose 169 H (70-99) mg/dl POC Glucose (70-99) Estimat Average Glucose 140 mg/dl Hemoglobin A1c 6.5 H (4.5-5.6) % Calcium 8.9 (8.5-10.1) mg/dl Phosphorus 2.6 (2.5-4.9) mg/dl Magnesium 2.1 (1.8-2.4) mg/dl Total Bilirubin 0.5 (0.2-1) mg/dl Direct Bilirubin < 0.1 (0-0.2) mg/dl AST 24 (15-37) U/L ALT 31 (12-78) U/L Alkaline Phosphatase 133 H (45-117) U/L Total Creatine Kinase 35 L (39-308) U/L Troponin I 0.016 (0-0.045) ng/ml NT-Pro-B Natriuret Pep 1307 (0-1800) pg/ml Total Protein 7.2 (6.4-8.2) gm/dl Albumin 3.5 (3.4-5.0) gm/dl Globulin 3.7 (2.5-4.0) gm/dl Albumin/Globulin Ratio 0.9 (0.9-2) Triglycerides (0-150) mg/dl Cholesterol (0-200) mg/dl LDL Cholesterol, Calc mg/dl VLDL Cholesterol, Calc mg/dl HDL Cholesterol mg/dl Cholesterol/HDL Ratio Lipase 73 (73-393) U/L TSH 2.920 (0.300-4.500) uIu/ml Urine Color Urine Appearance (Clear) Urine pH (4.5-7.5) Ur Specific [place] (1.000-1.030) Urine Protein (Negative) Urine Glucose (UA) (Negative) Urine Ketones (Negative) Urine Blood (Negative) Urine Nitrite (Negative) Urine Bilirubin (Negative) Urine Urobilinogen (Negative) Ur Leukocyte Esterase (Negative) Influenza Type A (PCR) (Neg) Influenza Type B (PCR) (Neg) 11/12/18 11/12/18 11/12/18 Range/Units 00:42 05:24 05:40 WBC 5.36 (4.8-10.8) K/uL RBC 4.36 L (4.7-6.1) M/uL Hgb 13.5 L (14.0-18.0) g/dL Hct 40.5 L (42-52) % MCV 92.9 (80-100) fL MCH 31.0 (25-34) pg MCHC 33.3 (32-36) g/dL RDW Std Deviation 46.2 (36.4-46.3) fL RDW Coeff of Arabella 13.6 (11.5-14.5) % Plt Count 120 L (130-400) K/uL MPV 9.4 (7.4-10.4) fL Immature Gran % (Auto) 0.9 % Neut % (Auto) 85.8 % Lymph % (Auto) 12.7 % [place] % (Auto) 0.6 % Eos % (Auto) 0.0 % Baso % (Auto) 0.0 % Immature Gran # (Auto) 0.05 H (0.00-0.02) K/uL Neut # (Auto) 4.60 (1.4-6.5) K/uL Lymph # (Auto) 0.68 L (1.2-3.4) K/uL [place] # (Auto) 0.03 L (0.11-0.59) K/uL Eos # (Auto) 0.00 (0-0.5) K/uL Baso # (Auto) 0.00 (0-0.2) K/uL Sodium (136-145) mmol/L Potassium (3.5-5.1) mmol/L Chloride (98-107) mmol/L Carbon Dioxide (21-32) mmol/L Anion Gap (3-11) BUN (7-18) mg/dl Creatinine (0.6-1.4) mg/dl Est Cr Clr Drug Dosing ml/min Est GFR ( Amer) Est GFR (Non-Af Amer) BUN/Creatinine Ratio (10-20) Glucose (70-99) mg/dl POC Glucose 198 H (70-99) Estimat Average Glucose mg/dl Hemoglobin A1c (4.5-5.6) % Calcium (8.5-10.1) mg/dl Phosphorus (2.5-4.9) mg/dl Magnesium (1.8-2.4) mg/dl Total Bilirubin (0.2-1) mg/dl Direct Bilirubin (0-0.2) mg/dl AST (15-37) U/L ALT (12-78) U/L Alkaline Phosphatase (45-117) U/L Total Creatine Kinase (39-308) U/L Troponin I (0-0.045) ng/ml NT-Pro-B Natriuret Pep (0-1800) pg/ml Total Protein (6.4-8.2) gm/dl Albumin (3.4-5.0) gm/dl Globulin (2.5-4.0) gm/dl Albumin/Globulin Ratio (0.9-2) Triglycerides (0-150) mg/dl Cholesterol (0-200) mg/dl LDL Cholesterol, Calc mg/dl VLDL Cholesterol, Calc mg/dl HDL Cholesterol mg/dl Cholesterol/HDL Ratio Lipase (73-393) U/L TSH (0.300-4.500) uIu/ml Urine Color Yellow Urine Appearance Clear (Clear) Urine pH 5.0 (4.5-7.5) Ur Specific [place] > 1.045 H (1.000-1.030) Urine Protein Negative (Negative) Urine Glucose (UA) Negative (Negative) Urine Ketones Negative (Negative) Urine Blood Negative (Negative) Urine Nitrite Negative (Negative) Urine Bilirubin Negative (Negative) Urine Urobilinogen Negative (Negative) Ur Leukocyte Esterase Negative (Negative) Influenza Type A (PCR) (Neg) Influenza Type B (PCR) (Neg) 11/12/18 11/12/18 11/12/18 Range/Units 05:40 06:40 07:39 WBC (4.8-10.8) K/uL RBC (4.7-6.1) M/uL Hgb (14.0-18.0) g/dL Hct (42-52) % MCV (80-100) fL MCH (25-34) pg MCHC (32-36) g/dL RDW Std Deviation (36.4-46.3) fL RDW Coeff of Arabella (11.5-14.5) % Plt Count (130-400) K/uL MPV (7.4-10.4) fL Immature Gran % (Auto) % Neut % (Auto) % Lymph % (Auto) % [place] % (Auto) % Eos % (Auto) % Baso % (Auto) % Immature Gran # (Auto) (0.00-0.02) K/uL Neut # (Auto) (1.4-6.5) K/uL Lymph # (Auto) (1.2-3.4) K/uL [place] # (Auto) (0.11-0.59) K/uL Eos # (Auto) (0-0.5) K/uL Baso # (Auto) (0-0.2) K/uL Sodium 140 (136-145) mmol/L Potassium 4.2 (3.5-5.1) mmol/L Chloride 108 H (98-107) mmol/L Carbon Dioxide 25 (21-32) mmol/L Anion Gap 8.0 (3-11) BUN 22 H (7-18) mg/dl Creatinine 1.32 (0.6-1.4) mg/dl Est Cr Clr Drug Dosing 46.5 ml/min Est GFR ( Amer) 59.0 Est GFR (Non-Af Amer) 50.9 BUN/Creatinine Ratio 16.3 (10-20) Glucose 198 H (70-99) mg/dl POC Glucose 184 H (70-99) Estimat Average Glucose mg/dl Hemoglobin A1c (4.5-5.6) % Calcium 8.8 (8.5-10.1) mg/dl Phosphorus (2.5-4.9) mg/dl Magnesium (1.8-2.4) mg/dl Total Bilirubin (0.2-1) mg/dl Direct Bilirubin (0-0.2) mg/dl AST (15-37) U/L ALT (12-78) U/L Alkaline Phosphatase (45-117) U/L Total Creatine Kinase (39-308) U/L Troponin I (0-0.045) ng/ml NT-Pro-B Natriuret Pep (0-1800) pg/ml Total Protein (6.4-8.2) gm/dl Albumin (3.4-5.0) gm/dl Globulin (2.5-4.0) gm/dl Albumin/Globulin Ratio (0.9-2) Triglycerides 172 H (0-150) mg/dl Cholesterol 176 (0-200) mg/dl LDL Cholesterol, Calc 112 mg/dl VLDL Cholesterol, Calc 34 mg/dl HDL Cholesterol 30 mg/dl Cholesterol/HDL Ratio 6 Lipase (73-393) U/L TSH (0.300-4.500) uIu/ml Urine Color Urine Appearance (Clear) Urine pH (4.5-7.5) Ur Specific [place] (1.000-1.030) Urine Protein (Negative) Urine Glucose (UA) (Negative) Urine Ketones (Negative) Urine Blood (Negative) Urine Nitrite (Negative) Urine Bilirubin (Negative) Urine Urobilinogen (Negative) Ur Leukocyte Esterase (Negative) Influenza Type A (PCR) Neg for Influ A (Neg) Influenza Type B (PCR) Neg for Influ B (Neg) 11/12/18 Range/Units 11:42 WBC (4.8-10.8) K/uL RBC (4.7-6.1) M/uL Hgb (14.0-18.0) g/dL Hct (42-52) % MCV (80-100) fL MCH (25-34) pg MCHC (32-36) g/dL RDW Std Deviation (36.4-46.3) fL RDW Coeff of Arabella (11.5-14.5) % Plt Count (130-400) K/uL MPV (7.4-10.4) fL Immature Gran % (Auto) % Neut % (Auto) % Lymph % (Auto) % [place] % (Auto) % Eos % (Auto) % Baso % (Auto) % Immature Gran # (Auto) (0.00-0.02) K/uL Neut # (Auto) (1.4-6.5) K/uL Lymph # (Auto) (1.2-3.4) K/uL [place] # (Auto) (0.11-0.59) K/uL Eos # (Auto) (0-0.5) K/uL Baso # (Auto) (0-0.2) K/uL Sodium (136-145) mmol/L Potassium (3.5-5.1) mmol/L Chloride (98-107) mmol/L Carbon Dioxide (21-32) mmol/L Anion Gap (3-11) BUN (7-18) mg/dl Creatinine (0.6-1.4) mg/dl Est Cr Clr Drug Dosing ml/min Est GFR ( Amer) Est GFR (Non-Af Amer) BUN/Creatinine Ratio (10-20) Glucose (70-99) mg/dl POC Glucose 203 H (70-99) Estimat Average Glucose mg/dl Hemoglobin A1c (4.5-5.6) % Calcium (8.5-10.1) mg/dl Phosphorus (2.5-4.9) mg/dl Magnesium (1.8-2.4) mg/dl Total Bilirubin (0.2-1) mg/dl Direct Bilirubin (0-0.2) mg/dl AST (15-37) U/L ALT (12-78) U/L Alkaline Phosphatase (45-117) U/L Total Creatine Kinase (39-308) U/L Troponin I (0-0.045) ng/ml NT-Pro-B Natriuret Pep (0-1800) pg/ml Total Protein (6.4-8.2) gm/dl Albumin (3.4-5.0) gm/dl Globulin (2.5-4.0) gm/dl Albumin/Globulin Ratio (0.9-2) Triglycerides (0-150) mg/dl Cholesterol (0-200) mg/dl LDL Cholesterol, Calc mg/dl VLDL Cholesterol, Calc mg/dl HDL Cholesterol mg/dl Cholesterol/HDL Ratio Lipase (73-393) U/L TSH (0.300-4.500) uIu/ml Urine Color Urine Appearance (Clear) Urine pH (4.5-7.5) Ur Specific [place] (1.000-1.030) Urine Protein (Negative) Urine Glucose (UA) (Negative) Urine Ketones (Negative) Urine Blood (Negative) Urine Nitrite (Negative) Urine Bilirubin (Negative) Urine Urobilinogen (Negative) Ur Leukocyte Esterase (Negative) Influenza Type A (PCR) (Neg) Influenza Type B (PCR) (Neg) Imaging Data Radiologist's Impression: Radiology results as stated below per my review and the radiologist's interpretation: SINGLE VIEW CHEST CLINICAL HISTORY: Atypical chest pain. FINDINGS: An AP, portable, upright chest radiograph is compared to chest x-ray and chest CT dated 09/07/2018. The examination is degraded by portable technique and patient rotation. A 3-lead cardiac pacemaker is unchanged in position and partially obscures the left lower chest. The patient is status post midline sternotomy. The the heart is enlarged and there is atherosclerotic calcification of the thoracic aorta. The pulmonary vasculature is noncongested. There is elevation of the left hemidiaphragm with left basilar opacities. The right lung appears clear. A small left pleural effusion is noted. No pneumothorax is seen. The skeletal structures are osteopenic. The bony thorax is grossly intact. Degenerative changes noted in the shoulders and thoracic spine. Cholecystectomy clips are noted in the right upper quadrant. IMPRESSION: 1. Cardiomegaly and cardiac pacemaker. There is no radiographic evidence of congestive failure. 2. Left basilar airspace opacities are similar to previous and may represent chronic change and/or an infectious/inflammatory pneumonitis. Clinical correlation will be required. 3. A small left pleural effusion is noted. Electronically signed by: Fredy Gould M.D. 11/11/2018 10:[address] Head: No acute hemorrhage or infarction. Chronic left basal ganglia infarction. Radiologist: Rayshawn Amanda MD Study ready at 23:26 and initial results transmitted at 23:50 CTA Head: 7 mm laterally projecting aneurysm at the right MCA bifurcation. No stenosis or occlusion. Radiologist: Rayshawn Amanda MD Study ready at 23:26 and initial results transmitted at 23:57 CTA Neck: Mixed plaque at the carotid bulbs with moderate stenosis. Vertebral arteries are patent. No dissection or occlusion. Radiologist: Rayshawn Amanda MD Study ready at 23:26 and initial results transmitted at 23:55 ECG Data Attestation: I personally reviewed and interpreted this ECG as follows: Indication: weakness Rate (beats per minute): 62 Rhythm: other (atrial sensed ventricular paced) Findings: no acute ischemic change and no ectopy Blood Pressure Blood Pressure Findings: Elevated blood pressure Blood Pressure Disposition: Referred to patients primary care provider MDM Narrative The patient is a pleasant 69-year-old gentleman with a complicated past medical history including CAD status post PCI and CABG, complete heart block status post PPM, chronic systolic CHF, hypertension, hyperlipidemia, DM 2, history of CVA, history of intracranial aneurysm who presents to emergency department for worsening of baseline right-sided weakness over the past several days culminating with inability to sit up when going to the bathroom prior to arrival per hpi. On arrival the patient is fatigued appearing but no acute distress, afebrile stable vital signs. Patient appears clinically dry. Patient does exhibit asymmetric weakness with 4/5 strength of the right upper and lower extremity compared to 4+/5 strength of the left upper and lower extremity. This asymmetry is the patient's baseline however his weakness of his right side is worse per at the bedside. EKG demonstrates paced rhythm. Chest x-ray negative for acute process. WBC within normal limits. H/ H 13.8/41.4 within patient's recent values. Platelets 120s within patient's recent values. Chemistry without acidosis. Creatinine 1.46 slightly increased from recent. Troponin 0.016 similar to prior values. UA negative for infection. CTA of the head and neck demonstrates the patient's known stable aneurysm. As well as previous infarct. Otherwise no acute findings. Patient with some improvement after gentle IV fluid hydration however the reports he is still weak from his baseline and does not feel like he can ambulate safely at home. Thus, reasonable to admit the patient for further management and likely placement. Case was discussed with Dr. King, [facility] , who will evaluate the patient for admission. Impression & Plan Dehydration, Generalized weakness Discharge Plan Visit Data *Final* Discharge Date/Time: 11/12/18 03:07 Chief Complaint: Leg Weakness, Bilateral ED Provider: Cesar Cain Discharge Problem: Dehydration, Generalized weakness Patient Disposition: Admitted As Inpatient Discharge Instructions Interventions: ED Discharge Assessment Last Done: 11/12/18 03:07 The scribe's documentation has been prepared under my direction and personally reviewed by me in its entirety. I confirm that the note above accurately reflects all work, treatment, procedures, and medical decision making performed by me.
[2018-11-12] MEDS ORDERED: ASPIRIN 325 MG ECTAB PO STA (01:41)
--- NOTE | 2018-11-12 01:43 | History & Physical Report ---
Date of Service November 12, 2018 Assessment & Plan (1) Slurred speech: With worsening of right leg weakness from previous CVA ? Recurrent CVA ? Post stroke recrudescence secondary to ARF, mild clinical dehydration Hypertensive urgency secondary to above chronic systolic heart failure secondary to ischemic cardiomyopathy (EF of 40%, TTE 2018) Patient slightly on the dry side. coronary artery disease s/p CABG SSS sp PPM PVD as per records hyperlipidemia Crestor prescription re-initiated last month outpatient by compliance paralegal after normalization of LFTs. Colorectal CA status post surgery status post chemoradiation DM2 diet-controlled, well-controlled as of recent outpatient hemoglobin A1c of 6.3 last June 2018 seizure disorder, stable on Keppra past hx DVT as per records chronic anemia, hemoglobin at baseline chronic thrombocytopenia OBS Medical telemetry Neurochecks MRI/MRA of the brain rule out recurrent CVA (px has MRI friendly PPM) Continue Plavix, increase aspirin from 81 to 162 mg daily until recurrent CVA ruled out Permissive hypertension for now until recurrent CVA ruled out Monitor creatinine response to gentle hydration, hold home diuretics for now until creatinine baseline Neurology consult RE slurred speech, R leg weakness Additional stroke workup pending MRI results ISS BG goal 140-180, patient due for hemoglobin A1c recheck PT OT eval DVT prophylaxis. SCDs RE thrombocytopenia Full code Patient's requesting for updates from providers. Mrs. Sylvie Dewitt thru [phone]. History of Present Illness Chief Complaint: Right leg weakness, slurred speech Primary Care Provider: Xavi Moreno MD History obtained from patient, family, and records. Patient is a fair historian. Communication limited by some dysphasia. Medical history significant for chronic systolic heart failure secondary to ischemic cardiomyopathy (EF of 40%, TTE 2018), coronary artery disease s/p CABG , SSS sp PPM, HTN, hx CVA, PVD, hyperlipidemia, colorectal CA status post surgery status post chemoradiation, DM2 diet-controlled, history of seizure disorder on Keppra, history DVT as per records, chronic anemia baseline hemoglobin 12-13, chronic thrombocytopenia. Recent confinement March 2018 for chest pain. Hours ago patient noted increasing usual right leg weakness, more dragging, patient had difficulty getting off the toilet. Patient noted by family to be a little more slurred and confused as usual. Admits to dry cough symptoms. No fever, no chills. Denies dysuria. Patient asking for more oxycodone tablets than usual for abdominal pain as per patient . Compliant with home antiplatelet medications. Medical History as above Recent outpatient [facility] [place] cardiology follow-up visit 10/2018. Crestor at reduced dosing of 5 mg daily to be resumed after normalization of LFTs as per outpatient note. still waiting for meds in the mail. Surgical History : CABG, vascular procedures, pacemaker, partial colectomy, appendectomy, hernia repair, TA, skin graft surgery Family History : Multiple myeloma, diabetes, heart disease, breast cancer, prostate cancer Personal/Social history : Non-smoker, no EtOH intake, lives with Allergies Allergy/AdvReac Type Severity Reaction Status Date / Time iodine Allergy Severe airway Verified 11/11/18 21:04 edema tramadol Allergy Severe seizures Verified 11/11/18 21:04 oxycodone Allergy Unknown "itchiness Verified 11/11/18 21:04 all over" felodipine AdvReac Mild cough Verified 11/11/18 21:04 ANCELMO Inhibitors AdvReac Unknown COUGHING Verified 11/11/18 21:04 codeine AdvReac Unknown hallucinations, Verified 11/11/18 21:04 depression Home Medications Home Medications Medication Instructions Recorded Confirmed Type aspirin [Aspir-Low] 81 mg PO HS 09/07/18 11/11/18 History calcium polycarbophil [Fiber-Tabs] 1 tab PO QAM 09/07/18 11/11/18 History carvedilol [Coreg] 18.75 mg PO BIDM 09/07/18 11/11/18 History clopidogrel [Plavix] 75 mg PO HS 09/07/18 11/11/18 History dicyclomine 20 mg PO Q6 PRN 09/07/18 11/11/18 History diphenhydramine HCl [Benadryl] 50 mg PO DIRECTED PRN 09/07/18 11/11/18 History furosemide [Lasix] 10 mg PO QAM 09/07/18 11/11/18 History hydralazine 25 mg PO TIDM 09/07/18 11/11/18 History levetiracetam [Keppra XR] 1,000 mg PO HS 09/07/18 11/11/18 History losartan [Cozaar] 100 mg PO QAM 09/07/18 11/11/18 History multivitamin 1 tab PO QDD 09/07/18 11/11/18 History nitroglycerin [Nitrostat] 0.4 mg SUBLINGUAL UD PRN 09/07/18 11/11/18 History oxycodone [Roxicodone] 5 mg PO Q6 PRN 09/07/18 11/11/18 History potassium chloride [Klor-Con 10] 10 meq PO QDD 09/07/18 11/11/18 History sertraline [Zoloft] 50 mg PO QDL 09/07/18 11/11/18 History magnesium 200 mg PO DAILY PRN 11/11/18 11/11/18 History Past Med/Surg History Medical History Left bundle branch block (Chronic) Dyslipidemia (Chronic) Carotid disease, bilateral (Chronic) "asymptomatic" Diabetes mellitus, type II (Chronic) Benign prostatic hyperplasia (Chronic) Hypertension (Chronic) History of skin cancer (Chronic) Malignant neoplasm of rectum (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/15) "Rectal bleeding Status post colonoscopy and biopsy 04/02/2015 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 Status post endoscopic ultrasound stage [id number] Neoadjuvant radiation and chemotherapy Chemotherapy comprised of Xeloda Status post completion of radiation therapy 06/24/2015 received 5460 cGy Status post rectosigmoid resection 08/27/2015 ypT2 ypN0 M0 Status post ileostomy closure 04/14/2016, gait by small bowel obstruction and then hemorrhage Status post CVA and then slow wound healing" On 01/20/16 16:12 Celeste Burrell wrote "Rectal bleeding Status post colonoscopy and biopsy 04/02/2015 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 Status post endoscopic ultrasound stage [id number] Neoadjuvant radiation and chemotherapy Chemotherapy comprised of Xeloda Status post completion of radiation therapy 06/24/2015 received 5460 cGy Status post rectosigmoid resection 08/27/2015 ypT2 ypN0 M0" On 07/02/15 10:41 Celeste Burrell wrote "Rectal bleeding Status post colonoscopy and biopsy 04/02/2015 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 Stephens [facility] [place] 2001 DIAZ-LAD, SVG left circumflex" Status post cardiac pacemaker procedure (Chronic) "initial 2005, generator change 2011" Status post cholecystectomy (Chronic) Status post tonsillectomy (Chronic) Status post shoulder surgery (Chronic) S/P colon resection (Chronic) H/O ileostomy (Chronic) Family History Other Family history non-contributory Social History Current Living Situation: Spouse Other Information That Helps Us Care for You: No Feels Safe at Home: Yes Safety Concerns: Feels Safe At This Time Smoking Status: Never smoker Hx Alcohol Use: No Hx Substance Use: No Beliefs That Will Affect Care: None Preferred Language: Amharic Communication Ability: Impaired Communication Ability Comment: some slurred speech and experssive aphasia from previous stroke Crown Buffer Required: No Review of Systems As per HPI, all 10 systems reviewed, all other ROS negative Physical Exam 2 Vital Signs (Past 24 Hours): Last Vital Signs Temp 36.4 C L 11/11/18 20:30 Pulse 68 11/12/18 00:58 Resp 18 11/12/18 00:58 BP 178/86 H 11/12/18 00:58 Pulse Ox 94 11/11/18 22:00 Physical Exam: GENERAL: Slightly anxious, no respiratory distress, dysphasic SKIN: Pallor , warm HEENT: Alopecia, bespectacled, pink palpebral conjunctivae, no ptosis, chronic facial asymmetry, dry buccal mucosa NECK : Supple, no tenderness CHEST : CTA, no tenderness HEART : RRR, systolic murmur ABDOMEN: Some distention, healed incisional scars, nontender EXTREMITIES : No LE swelling/tenderness, no other conspicuous deformities noted NEUROLOGIC : Coherent, dysphasic, chronic facial asymmetry, MMT RLE 4/5, LLE 5/5 , occasional rest tremors noted on the hands Results & Data Laboratory Results Laboratory Results WBC 6.13 K/uL (4.8-10.8) 11/11/18 21:00 RBC 4.37 M/uL (4.7-6.1) L 11/11/18 21:00 Hgb 13.8 g/dL (14.0-18.0) L 11/11/18 21:00 Hct 41.4 % (42-52) L 11/11/18 21:00 MCV 94.7 fL (80-100) 11/11/18 21:00 MCH 31.6 pg (25-34) 11/11/18 21:00 MCHC 33.3 g/dL (32-36) 11/11/18 21:00 RDW Std Deviation 46.7 fL (36.4-46.3) H 11/11/18 21:00 RDW Coeff of Arabella 13.7 % (11.5-14.5) 11/11/18 21:00 Plt Count 123 K/uL (130-400) L 11/11/18 21:00 MPV 9.3 fL (7.4-10.4) 11/11/18 21:00 Immature Gran % (Auto) 1.1 % 11/11/18 21:00 Neut % (Auto) 71.8 % 11/11/18 21:00 Lymph % (Auto) 17.0 % 11/11/18 21:00 [place] % (Auto) 8.0 % 11/11/18 21:00 Eos % (Auto) 1.8 % 11/11/18 21:00 Baso % (Auto) 0.3 % 11/11/18 21:00 Immature Gran # (Auto) 0.07 K/uL (0.00-0.02) H 11/11/18 21:00 Neut # (Auto) 4.40 K/uL (1.4-6.5) 11/11/18 21:00 Lymph # (Auto) 1.04 K/uL (1.2-3.4) L 11/11/18 21:00 [place] # (Auto) 0.49 K/uL (0.11-0.59) 11/11/18 21:00 Eos # (Auto) 0.11 K/uL (0-0.5) 11/11/18 21:00 Baso # (Auto) 0.02 K/uL (0-0.2) 11/11/18 21:00 Sodium 142 mmol/L (136-145) 11/11/18 21:00 Potassium 3.9 mmol/L (3.5-5.1) 11/11/18 21:00 Chloride 106 mmol/L (98-107) 11/11/18 21:00 Carbon Dioxide 30 mmol/L (21-32) 11/11/18 21:00 Anion Gap 6.0 (3-11) 11/11/18 21:00 BUN 20 mg/dl (7-18) H 11/11/18 21:00 Creatinine 1.46 mg/dl (0.6-1.4) H 11/11/18 21:00 Est Cr Clr Drug Dosing 42.0 ml/min 11/11/18 21:00 Est GFR ( Amer) 52.3 11/11/18 21:00 Est GFR (Non-Af Amer) 45.1 11/11/18 21:00 BUN/Creatinine Ratio 13.4 (10-20) 11/11/18 21:00 Glucose 169 mg/dl (70-99) H 11/11/18 21:00 Calcium 8.9 mg/dl (8.5-10.1) 11/11/18 21:00 Phosphorus 2.6 mg/dl (2.5-4.9) 11/11/18 21:00 Magnesium 2.1 mg/dl (1.8-2.4) 11/11/18 21:00 Total Bilirubin 0.5 mg/dl (0.2-1) 11/11/18 21:00 Direct Bilirubin < 0.1 mg/dl (0-0.2) 11/11/18 21:00 AST 24 U/L (15-37) 11/11/18 21:00 ALT 31 U/L (12-78) 11/11/18 21:00 Alkaline Phosphatase 133 U/L (45-117) H 11/11/18 21:00 Total Creatine Kinase 35 U/L (39-308) L 11/11/18 21:00 Troponin I 0.016 ng/ml (0-0.045) 11/11/18 21:00 NT-Pro-B Natriuret Pep 1307 pg/ml (0-1800) 11/11/18 21:00 Total Protein 7.2 gm/dl (6.4-8.2) 11/11/18 21:00 Albumin 3.5 gm/dl (3.4-5.0) 11/11/18 21:00 Globulin 3.7 gm/dl (2.5-4.0) 11/11/18 21:00 Albumin/Globulin Ratio 0.9 (0.9-2) 11/11/18 21:00 Lipase 73 U/L (73-393) 11/11/18 21:00 TSH 2.920 uIu/ml (0.300-4.500) 11/11/18 21:00 Urine Color Yellow 11/12/18 00:42 Urine Appearance Clear (Clear) 11/12/18 00:42 Urine pH 5.0 (4.5-7.5) 11/12/18 00:42 Ur Specific [place] > 1.045 (1.000-1.030) H 11/12/18 00:42 Urine Protein Negative (Negative) 11/12/18 00:42 Urine Glucose (UA) Negative (Negative) 11/12/18 00:42 Urine Ketones Negative (Negative) 11/12/18 00:42 Urine Blood Negative (Negative) 11/12/18 00:42 Urine Nitrite Negative (Negative) 11/12/18 00:42 Urine Bilirubin Negative (Negative) 11/12/18 00:42 Urine Urobilinogen Negative (Negative) 11/12/18 00:42 Ur Leukocyte Esterase Negative (Negative) 11/12/18 00:[address] head initial read: Chronic left basal ganglia infarction CTA head initial read: 7 mm projecting aneurysm right MCA bifurcation CTA neck initial read: Mixed plaque at the carotid bulbs with moderate stenosis. Patent vertebral arteries. Chest x-ray: 1. Cardiomegaly and cardiac pacemaker. There is no radiographic evidence of congestive failure. 2. Left basilar airspace opacities are similar to previous and may represent chronic change and/or an infectious/inflammatory pneumonitis. Clinical correlation will be required. 3. A small left pleural effusion is noted. EKG as per my interpretation rate 60 paced rhythm
[2018-11-12] MEDS ORDERED: ASPIRIN 81 MG ECTAB PO ONE (02:14)
[2018-11-12] MEDS ORDERED: NITROGLYCERIN SL 0.4 MG/TAB TAB SL PRN (03:42)
[2018-11-12] MEDS ORDERED: ACETAMINOPHEN 325 MG TAB PO PRN (03:42)
[2018-11-12] MEDS ORDERED: OXYCODONE HCL IR 5 MG TAB (IMMEDIATE RELEASE) PO PRN (03:42)
[2018-11-12] MEDS ORDERED: HYDROmorphone INJ 0.5 MG/0.5 ML SYR IV PRN (03:42)
[2018-11-12] MEDS ORDERED: CARBOHYDRATES FOR HYPOGLYCEMIA PO PRN (03:42)
[2018-11-12] MEDS ORDERED: GLUCOSE 10 TABS/TUBE PO PRN (03:42)
[2018-11-12] MEDS ORDERED: SODIUM CHLORIDE 0.9% 500 ML IV ONE (03:42)
[2018-11-12] MEDS ORDERED: GLUCAGON FOR INJ 1 MG VIAL SQ PRN (03:42)
[2018-11-12] MEDS ORDERED: PROCHLORPERAZINE 5 MG in SYRINGE 4 ML IV PRN (03:42)
[2018-11-12] MEDS ORDERED: GLUCOSE 40% GEL 15 GM TUBE PO PRN (03:42)
[2018-11-12] MEDS ORDERED: PHARMACIST DISCHARGE MED REC CONSULT PRN (03:42)
[2018-11-12] MEDS ORDERED: DEXTROSE 50% 50 ML SYRINGE IV PRN (03:42)
[2018-11-12] MEDS: INSULIN ASPART 100 UNITS/ML 3 ML PEN SC SCH ×5 (06:02→20:27)
[2018-11-12] MEDS: CARVEDILOL 3.125 MG TAB PO SCH ×2 (06:03→16:58)
[2018-11-12 06:04] LABS: Hematocrit (blood only) 40.5 % (42-52); Hemoglobin 13.5 g/dL (14.0-18.0); Immature Granulocytes # (auto) 0.05 K/uL (0.00-0.02); Immature Granulocytes % (auto) 0.9 %; Lymphocytes # (auto) 0.68 K/uL (1.2-3.4); Lymphocytes % (auto) 12.7 %; Mean Corpuscular Hgb Conc 33.3 g/dL (32-36); Mean Corpuscular Volume 92.9 fL (80-100); Mean Platelet Volume 9.4 fL (7.4-10.4); Monocytes # (auto) 0.03 K/uL (0.11-0.59); Monocytes % (auto) 0.6 %; Neutrophils % (auto) 85.8 %; Platelet Count 120 K/uL (130-400); RDW Coefficient of Variation 13.6 % (11.5-14.5); RDW Standard Deviation 46.2 fL (36.4-46.3); Red Blood Count 4.36 M/uL (4.7-6.1); White Blood Count 5.36 K/uL (4.8-10.8)
[2018-11-12] MEDS: KEPPRA XR~ORDER AWAITING ACTION SCH ×3 (06:26→15:05)
--- NOTE | 2018-11-12 06:30 | CT Scan Report ---
CT head/brain wo con CLINICAL HISTORY: Progressive right-sided weakness COMPARISON STUDY: 04/04/2018 TECHNIQUE: Axial CT of the brain is performed from the vertex to the skull base. IV contrast was not administered for this examination. A dose lowering technique was utilized adhering to the principles of ALARA. CT DOSE: FINDINGS: No intra or extra-axial mass lesions are visualized. There is no CT evidence of acute cortical infarc tion. There is no evidence of midline shift. There is no acute hemorrhage. No calvarial fractures ar e visualized. There are patchy white matter hypodensities likely on a small vessel basis. There is an old left basa l ganglia infarct. There is mild ventricular dilatation which is felt to be secondary to volume loss. There is compensat ory dilatation of the left lateral ventricle due to a prior left hemispheric infarct. There is no evidence of acute sinusitis IMPRESSION: No acute intracranial findings Electronically signed by: Jacky Bower M.D. 11/12/2018 6:27 AM
[2018-11-12 06:35] LABS: BUN Creatinine Ratio 16.3 (10-20); Calcium 8.8 mg/dl (8.5-10.1); Creatinine Clr Calc Pharmacy 46.5 ml/min; Est GFR (Non-African American) 50.9; Potassium 4.2 mmol/L (3.5-5.1)
--- NOTE | 2018-11-12 06:37 | CT Scan Report ---
CT angio neck with con HISTORY: Mental status change worsening right sided weakness TECHNIQUE: Multiaxial CT angiography of the neck was performed IV contrast: 20 cc All measurem ents were calculated based on NASCET criteria. Maximum intensity projection images were also obtaine d. A dose lowering technique was utilized adhering to the principles of ALARA. COMPARISON STUDY: 04/27/2017 FINDINGS: The aortic arch and proximal great vessels are widely patent. There is moderate plaque for mation of the carotid bifurcations bilaterally. There is 60% narrowing on the right and 50% on the le ft. This is similar compared to the prior study. Vertebral basilar system is unremarkable. There is no significant stenotic process. There is no evide nce for dissection. IMPRESSION: 1. 60% narrowing right internal carotid artery at its origin. 2. 50% narrowing left internal carotid artery at its origin. 3. Normal vertebral basilar system. The above report was generated using voice recognition software. It may contain grammatical, syntax or spelling errors. Electronically signed by: Dirk Castellanos M.D. 11/12/2018 6:36 AM
--- NOTE | 2018-11-12 06:40 | CT Scan Report ---
CT SCAN OF THE ABDOMEN AND PELVIS WITHOUT CONTRAST CLINICAL HISTORY: abd pain HISTORY OF COLON CARCINOMA. COMPARISON STUDY: 11/30/2017 TECHNIQUE: CT scan of the abdomen and pelvis was performed from the lung bases to the proximal femurs . Images are reviewed in the axial, sagittal, and coronal planes. IV contrast was not administered fo r this examination. A dose lowering technique was utilized adhering to the principles of ALARA. CT DOSE: 793.06 mGy.cm FINDINGS: Lower chest: There is a trace left pleural effusion. There is right basilar atelectatic change. There are left basilar airspace opacities, round atelectasis versus an infectious/inflammatory process.. Liver: The unenhanced liver is normal in size, contour, and attenuation. There is no intrahepatic kristin iary ductal dilatation. Gallbladder: Surgically absent Spleen: Normal in size and attenuation. Pancreas: Unremarkable. Adrenal glands: Unremarkable. Kidneys: There is bilateral renal contrast enhancement secondary to a presumed prior contrast-enhance d study. There is no hydronephrosis. Bowel: There are no transition zones indicate bowel obstruction. There are postsurgical changes of a rectosigmoid anastomosis. There is presacral and perirectal soft tissue thickening similar to the rosa or study. There are no findings to indicate acute diverticulitis. There are no findings to indicate a cute appendicitis. There is a posterior gastric diverticulum. Peritoneum: There is no intraperitoneal free air or abdominal ascites. Vasculature: The abdominal aorta is normal in course and caliber. Adenopathy: None. Pelvic viscera: The prostate is enlarged. Skeletal structures: There are several old superior endplate vertebral body compression deformities. No destructive lesions are visualized. IMPRESSION: 1. No evidence of bowel obstruction. No evidence of free air 2. Trace left pleural effusion 3. Basilar airspace opacities likely atelectatic although an associated inflammatory/infectious proce ss the left lung base cannot be excluded 4. Postsurgical changes involving the rectosigmoid. Presacral and perirectal soft tissue thickening u nchanged the prior study. 5. No evidence of acute diverticulitis. No acute inflammatory process. Electronically signed by: Jacky Bower M.D. 11/12/2018 6:38 AM
[2018-11-12 06:53] LABS: Estimated Average Glucose 140 mg/dl
--- NOTE | 2018-11-12 07:15 | CT Scan Report ---
HEAD CTA HISTORY: worsening right sided weakness TECHNIQUE: Multiaxial CT images of the head were performed both before and after the intravenous admi nistration of contrast to evaluate the major cerebral vessels. Maximum intensity projection images we re also obtained. A dose lowering technique was utilized adhering to the principles of ALARA. COMPARISON: Head CT 11/11/2018. FINDINGS: There is no mass, hematoma, midline shift, or acute infarct. Focal fenestration within the proximal basilar artery. The distal vertebral arteries and basilar artery are patent. Bilateral inter nal carotid arteries are patent with mild atherosclerotic plaque. Bilateral ACAs, MCAs, location worker are wide ly patent. There is a 7 x 4 mm right MCA bifurcation aneurysm. IMPRESSION: 1. 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 2. No significant stenosis or occlusion within the [place]. Electronically signed by: Javon Suarez M.D. 11/12/2018 7:14 AM
[2018-11-12 07:25] LABS: Influenza A virus by PCR Neg for Influ A (Neg); Influenza B virus by PCR Neg for Influ B (Neg)
[2018-11-12] MEDS ORDERED: CARVEDILOL 12.5 MG TAB PO SCH (08:00)
[2018-11-12] MEDS: ROSUVASTATIN CALCIUM 5 MG TAB PO SCH (08:35)
[2018-11-12] MEDS ORDERED: GADOBUTROL 65ML VIAL IV PRN (09:42)
[2018-11-12] MEDS: SERTRALINE HCL 50 MG TABLET PO SCH (11:34)
--- NOTE | 2018-11-12 14:10 | Neurology Consultation ---
Date of Consultation November 12, 2018 Assessment & Plan (1) Slurred speech: 1. CTA neck- will need follow up with vascular as outpatient >60 % stenosis JIM 2. would US bilateral LE due to DVT history 3. EF 40% 08/22/2018 in [facility] 4. MRI brain with and without ordered. pacemaker compatible to MRI 5. currently on aspirin 81 mg and plavix 75 mg continue 6. Keppra XR 1000 mg hs continue- does not appear to be seizure related denies any LOC 7. nurse safety evaluation at home- 2 story home 8. PT/OT discharge needs 9. optimize DM, HTN, HLD LDL <70 10. if unable to obtain MRI brain - please repeat CT head tomorrow am. further recommendations after MRI brain/CT head is completed. Supervising Physician Co-Signing Physician Notes I have seen and discussed above patient with Dr Petr Lopez, neurology I have interviewed and examined Mr. Dewitt, discussed his case with Vernell Reich PA-C, reviewed his imaging studies and the history is recorded on the chart regarding the reason for his current admission the patient himself however is a little vague. He admits that he had some pain in the proximal portion of his left leg last week that is now resolved. He then states that he had trouble controlling the left leg yesterday in addition to an increase in the amount of slurring of his speech though he is very inconsistent in describing the latter phenomena. Examination shows an old right hemiparesis and word finding issues consistent with a residual a aphasia and the latter probably explains his imprecision as a historian. 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 There is some controversy about whether his current cardiac pacemaker is compatible with an MRI and the final statement is that it is not because of a single wire incompatibility issue. Our plans then to try to settle the question about whether this was a TIA, CVA etc. will have to rely on CT technology which is going to be unreliable. Repeat CT scan will be done tomorrow his carotid artery stenosis will be followed by vascular surgery on an outpatient basis. I see no reason at this time to change his dual antiplatelet therapy unless we see unequivocal evidence for a new event involving the right hemisphere. His seizure disorder remains well controlled on his current Keppra dose we are not can make any changes in it I see no reason to do an EEG based on the history is nothing about the event in question sounds like a seizure. We will be back tomorrow, reviewed the CT scan and proceed from there regarding further recommendations. Petr Lopez MD History of Present Illness Reason for Consultation: slurred speech Requesting Physician: Gary Baez MD Attending Physician: Gary Baez MD History of Present Illness Angelo is a 78 year old male chronic systolic heart failure secondary to ischemic cardiomyopathy (EF of 20%, TTE 2018), CAD s/p CABG, SSS sp PPM, HTN, hx CVA, PVD, hyperlipidemia, colorectal CA status post surgery, DM2 diet- controlled, history of seizure disorder on Keppra, history DVT as per records, chronic anemia baseline hemoglobin 12-13, chronic thrombocytopenia, cardiac pacemaker. He states he was using his 4 alvarado to get around in the house and tried to use the toilet and fell and couldn't get up. he also had some slurred speech which resolved after he arrived at [facility]. His is not in the room and unclear how long he was down. He states he had a twing in his left leg that he thought may have been a clot. denies CP, SOB, abdominal pain, new one sided weakness, numbness tingling, N, V, swallowing issues, vision changes headache. Allergies Allergy/AdvReac Type Severity Reaction Status Date / Time iodine Allergy Severe airway Verified 11/11/18 21:04 edema tramadol Allergy Severe seizures Verified 11/11/18 21:04 oxycodone Allergy Unknown "itchiness Verified 11/11/18 21:04 all over" felodipine AdvReac Mild cough Verified 11/11/18 21:04 ANCELMO Inhibitors AdvReac Unknown COUGHING Verified 11/11/18 21:04 codeine AdvReac Unknown hallucinations, Verified 11/11/18 21:04 depression Home Medications Home Medications Medication Instructions Recorded Confirmed Type aspirin [Aspir-Low] 81 mg PO HS 09/07/18 11/11/18 History calcium polycarbophil [Fiber-Tabs] 1 tab PO QAM 09/07/18 11/11/18 History carvedilol [Coreg] 18.75 mg PO BIDM 09/07/18 11/11/18 History clopidogrel [Plavix] 75 mg PO HS 09/07/18 11/11/18 History dicyclomine 20 mg PO Q6 PRN 09/07/18 11/11/18 History diphenhydramine HCl [Benadryl] 50 mg PO DIRECTED PRN 09/07/18 11/11/18 History furosemide [Lasix] 10 mg PO QAM 09/07/18 11/11/18 History hydralazine 25 mg PO TIDM 09/07/18 11/11/18 History levetiracetam [Keppra XR] 1,000 mg PO HS 09/07/18 11/11/18 History losartan [Cozaar] 100 mg PO QAM 09/07/18 11/11/18 History multivitamin 1 tab PO QDD 09/07/18 11/11/18 History nitroglycerin [Nitrostat] 0.4 mg SUBLINGUAL UD PRN 09/07/18 11/11/18 History oxycodone [Roxicodone] 5 mg PO Q6 PRN 09/07/18 11/11/18 History potassium chloride [Klor-Con 10] 10 meq PO QDD 09/07/18 11/11/18 History sertraline [Zoloft] 50 mg PO QDL 09/07/18 11/11/18 History magnesium 200 mg PO DAILY PRN 11/11/18 11/11/18 History Patient History Medical History Left bundle branch block (Chronic) Dyslipidemia (Chronic) Carotid disease, bilateral (Chronic) "asymptomatic" Diabetes mellitus, type II (Chronic) Benign prostatic hyperplasia (Chronic) Hypertension (Chronic) History of skin cancer (Chronic) Malignant neoplasm of rectum (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/15) "Rectal bleeding Status post colonoscopy and biopsy 04/02/2015 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 Status post endoscopic ultrasound stage [id number] Neoadjuvant radiation and chemotherapy Chemotherapy comprised of Xeloda Status post completion of radiation therapy 06/24/2015 received 5460 cGy Status post rectosigmoid resection 08/27/2015 ypT2 ypN0 M0 Status post ileostomy closure 04/14/2016, gait by small bowel obstruction and then hemorrhage Status post CVA and then slow wound healing" On 01/20/16 16:12 Celeste Burrell wrote "Rectal bleeding Status post colonoscopy and biopsy 04/02/2015 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 Status post endoscopic ultrasound stage [id number] Neoadjuvant radiation and chemotherapy Chemotherapy comprised of Xeloda Status post completion of radiation therapy 06/24/2015 received 5460 cGy Status post rectosigmoid resection 08/27/2015 ypT2 ypN0 M0" On 07/02/15 10:41 Celeste Burrell wrote "Rectal bleeding Status post colonoscopy and biopsy 04/02/2015 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 Status post endoscopic ultrasound stage [id number] Neoadjuvant radiation and chemotherapy Chemotherapy comprised of Xeloda Status post completion of radiation therapy 06/24/2015 received 5460 cGy" Coronary artery disease (Chronic) "s/p [place]" GERD (gastroesophageal reflux disease) (Chronic) AV block (Chronic) "s/p pacemaker" Surgical History Status post coronary artery bypass grafting (Chronic) "[place]. [place] [facility] [place] DIAZ-LAD, SVG left circumflex" Status post cardiac pacemaker procedure (Chronic) "initial 2005, generator change 2011" Status post cholecystectomy (Chronic) Status post tonsillectomy (Chronic) Status post shoulder surgery (Chronic) S/P colon resection (Chronic) H/O ileostomy (Chronic) Family History Other Family history non-contributory Social History Current Living Situation: Spouse Other Information That Helps Us Care for You: No Feels Safe at Home: Yes Safety Concerns: Feels Safe At This Time Smoking Status: Never smoker Hx Alcohol Use: No Hx Substance Use: No Beliefs That Will Affect Care: None Preferred Language: Greenlandic Communication Ability: Impaired Communication Ability Comment: some slurred speech and experssive aphasia from previous stroke Enlisted Aircrew/Aerial Observer/Gunner Required: No Physical Exam 2 Vital Signs (Past 24 Hours): Last Vital Signs Temp 36.4 C L 11/12/18 11:37 Pulse 62 11/12/18 11:37 Resp 20 11/12/18 11:37 BP 155/77 H 11/12/18 11:37 Pulse Ox 96 11/12/18 11:37 Physical Exam: Constitutional: healthy and normal Ears, Nose, Mouth and Throat: mucous membranes moist, no injection and skin normal, eyes normal Cardiovascular: normal S-1 and S-2 and regular rate and rhythm Respiratory: course breath sounds Musculoskeletal: no peripheral edema and good distal pulses Skin: no stigmata of neurocutaneous disease noted and normal and intact Eyes: extraocular muscles intact (EOMI) and pupils equal, round and reactive to light (PERRL) NEUROLOGIC EXAMINATION: Mental status: Alert and interactive Oriented to full date and location Oriented to person Speech slurring of words Cranial Nerves smile eye brow raise symmetric Reflexes: Deep tendon reflexes were symmetrical and graded 2/5. Plantar responses were flexor. Sensory: intact to light and cool touch Coordination: finger to nose without bi pass Gait/Stance: Posture lying in bed Motor: right sided drift with eyes closed Strength: generalized weakness, decrease hand case manager bilaterally Results & Data Laboratory Results Abnormal lab results 11/11/18 11/11/18 11/11/18 Range/Units 21:00 21:00 21:00 RBC 4.37 L (4.7-6.1) M/uL Hgb 13.8 L (14.0-18.0) g/dL Hct 41.4 L (42-52) % RDW Std Deviation 46.7 H (36.4-46.3) fL Plt Count 123 L (130-400) K/uL Immature Gran # (Auto) 0.07 H (0.00-0.02) K/uL Lymph # (Auto) 1.04 L (1.2-3.4) K/uL [place] # (Auto) (0.11-0.59) K/uL Chloride (98-107) mmol/L BUN 20 H (7-18) mg/dl Creatinine 1.46 H (0.6-1.4) mg/dl Glucose 169 H (70-99) mg/dl POC Glucose (70-99) Hemoglobin A1c 6.5 H (4.5-5.6) % Alkaline Phosphatase 133 H (45-117) U/L Total Creatine Kinase 35 L (39-308) U/L Triglycerides (0-150) mg/dl Ur Specific [place] (1.000-1.030) 11/12/18 11/12/18 11/12/18 Range/Units 00:42 05:24 05:40 RBC 4.36 L (4.7-6.1) M/uL Hgb 13.5 L (14.0-18.0) g/dL Hct 40.5 L (42-52) % RDW Std Deviation (36.4-46.3) fL Plt Count 120 L (130-400) K/uL Immature Gran # (Auto) 0.05 H (0.00-0.02) K/uL Lymph # (Auto) 0.68 L (1.2-3.4) K/uL [place] # (Auto) 0.03 L (0.11-0.59) K/uL Chloride (98-107) mmol/L BUN (7-18) mg/dl Creatinine (0.6-1.4) mg/dl Glucose (70-99) mg/dl POC Glucose 198 H (70-99) Hemoglobin A1c (4.5-5.6) % Alkaline Phosphatase (45-117) U/L Total Creatine Kinase (39-308) U/L Triglycerides (0-150) mg/dl Ur Specific [place] > 1.045 H (1.000-1.030) 11/12/18 11/12/18 11/12/18 Range/Units 05:40 07:39 11:42 RBC (4.7-6.1) M/uL Hgb (14.0-18.0) g/dL Hct (42-52) % RDW Std Deviation (36.4-46.3) fL Plt Count (130-400) K/uL Immature Gran # (Auto) (0.00-0.02) K/uL Lymph # (Auto) (1.2-3.4) K/uL [place] # (Auto) (0.11-0.59) K/uL Chloride 108 H (98-107) mmol/L BUN 22 H (7-18) mg/dl Creatinine (0.6-1.4) mg/dl Glucose 198 H (70-99) mg/dl POC Glucose 184 H 203 H (70-99) Hemoglobin A1c (4.5-5.6) % Alkaline Phosphatase (45-117) U/L Total Creatine Kinase (39-308) U/L Triglycerides 172 H (0-150) mg/dl Ur Specific [place] (1.000-1.030) Diagnostic Findings CT head- No acute intracranial findings CTA head-1. 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 No significant stenosis or occlusion within the [place]. CTA neck -. 60% narrowing right internal carotid artery at its origin. 50% narrowing left internal carotid artery at its origin. CT Abd/pelvis- No evidence of bowel obstruction. No evidence of free air Trace left pleural effusion Basilar airspace opacities likely atelectatic although an associated inflammatory/infectious process the left lung base cannot be excluded Postsurgical changes involving the rectosigmoid. Presacral and perirectal soft tissue thickening unchanged the prior study. No evidence of acute diverticulitis. No acute inflammatory process.
[2018-11-12] MEDS: MULTIVITAMIN TAB PO SCH (16:58)
--- NOTE | 2018-11-12 17:48 | Hospitalist Progress Note ---
Date of Service November 12, 2018 Assessment & Plan (1) Slurred speech: Right sided weakness/Slurred Speech: ? 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 No significant stenosis or occlusion within the [place]. --Neck CTA: 60% narrowing right internal carotid artery at its origin. 50% narrowing left internal carotid artery at its origin. Normal vertebral basilar system. --Continue Aspirin, Plavix, Statin --Could not get MRI brain secondary to pacemaker Incompatibility --Appreciate Neurology Input --PT/OT, Fall precuations --Plan to repeat CT head in AM --Needs Vascular surgery follow up upon discharge REBECCA: Losartan held Received IV fluids Cr level simproved Monitor renal funciton Hypertensive Urgency: Likely situational Continue Coreg Resume Losartan as able Monitor Chronic systolic heart failure H/O Ischemic cardiomyopathy (EF of 40%, TTE 2018) No signs of exacerbation Diuretics held as patient on dry side. coronary artery disease s/p CABG SSS sp PPM PVD as per records Continue ASA, plavix, Beta [place], Statin Hyperlipidemia Crestor prescription re-initiated last month outpatient by appliance painter and refinisher after normalization of LFTs. continue crestor Colorectal CA S/P surgery and chemoradiation Stable DM II: Diet-controlled Last A1c of 6.08 Jun 2018 Continue ISS while hospitalized Seizure Disorder Stable Continue Keppra H/O DVT Check Venous Doppler to R/O Acute DVT Chronic anemia Hb at baseline Chronic Thrombocytopenia No bleeding issues Monitor CBC DVT Px: SCDs Re: thrombocytopenia Code Status Full code Disposition: PT/OT prior to DC Subjective Patient is seen and examined at bedside Speech and right sided weakness seemed to be his baseline Denies chest pain, dyspnea, dizziness No other complaints Discussed with Neurology today Planned for repeat CT head in AM Physical Exam 2 Vital Signs (Past 24 Hours): Last Vital Signs Temp 36.5 C 11/12/18 15:59 Pulse 64 11/12/18 15:59 Resp 20 11/12/18 15:59 BP 156/76 H 11/12/18 15:59 Pulse Ox 94 11/12/18 15:59 Physical Exam: Physical Exam: Vitals signs as noted above General Appearance:Moderately built and nourished, no apparent distress Head: normocephalic, Atraumatic Eyes: normal inspection, EOMI Neck: supple, Trachea midline Respiratory/Chest: Normal breath sounds, CTA Cardiovascular: S1, S2, faint murmur Abdomen/GI:Soft, Non tender, Bowel sounds present Extremities/Musculoskelatal:normal inspection, no edema Neurologic/Psych:AAOX3, Right sided hemiparesis RLE Skin: normal color, warm Results & Data Laboratory Results Short CBC 11/11/18 11/12/18 Range/Units 21:00 05:40 WBC 6.13 5.36 (4.8-10.8) K/uL Hgb 13.8 L 13.5 L (14.0-18.0) g/dL Hct 41.4 L 40.5 L (42-52) % Plt Count 123 L 120 L (130-400) K/uL BMP 11/11/18 11/12/18 21:00 05:40 Sodium 142 140 Potassium 3.9 4.2 Chloride 106 108 H Carbon Dioxide 30 25 BUN 20 H 22 H Creatinine 1.46 H 1.32 Glucose 169 H 198 H Calcium 8.9 8.8 Cardiac Enzymes 11/11/18 Range/Units 21:00 Total Creatine Kinase 35 L (39-308) U/L Troponin I 0.016 (0-0.045) ng/ml Liver Function 11/11/18 Range/Units 21:00 Total Bilirubin 0.5 (0.2-1) mg/dl Direct Bilirubin < 0.1 (0-0.2) mg/dl AST 24 (15-37) U/L ALT 31 (12-78) U/L Alkaline Phosphatase 133 H (45-117) U/L Albumin 3.5 (3.4-5.0) gm/dl Urine 11/12/18 Range/Units 00:42 Urine Color Yellow Urine Appearance Clear (Clear) Urine pH 5.0 (4.5-7.5) Ur Specific [place] > 1.045 H (1.000-1.030) Urine Protein Negative (Negative) Urine Glucose (UA) Negative (Negative)
[2018-11-12] MEDS: ASPIRIN 81 MG ECTAB PO SCH (19:56)
[2018-11-12] MEDS: KEPPRA PO SCH (19:57)
[2018-11-12] MEDS: CLOPIDOGREL BISULFATE 75 MG TAB PO SCH (19:58)
[2018-11-12] MEDS ORDERED: ASPIRIN 81 MG ECTAB PO SCH (21:00)
[2018-11-12] MEDS: INSULIN GLARGINE SOLOSTAR 100 UNITS/ML 3 ML PEN SC SCH (22:47)
--- NOTE | 2018-11-12 22:48 | Ultrasound Report ---
BILATERAL LOWER EXTREMITY VENOUS DOPPLER HISTORY: Acute pain and swelling of the bilateral lower extremities R/O DVT COMPARISON STUDY: Duplex venous Doppler study 09/07/2018. FINDINGS: There is normal compressibility, flow, and augmentation within the bilateral lower extremit y deep venous systems. IMPRESSION: No sonographic evidence of deep venous thrombosis within the right or left lower extremity. Electronically signed by: Bridger Carrillo M.D. 11/12/2018 10:47 PM
[2018-11-13 05:56] LABS: Hematocrit (blood only) 39.1 % (42-52); Hemoglobin 12.8 g/dL (14.0-18.0); Mean Corpuscular Hgb Conc 32.7 g/dL (32-36); Mean Corpuscular Volume 92.9 fL (80-100); Mean Platelet Volume 9.2 fL (7.4-10.4); Platelet Count 123 K/uL (130-400); RDW Coefficient of Variation 13.7 % (11.5-14.5); RDW Standard Deviation 46.4 fL (36.4-46.3); Red Blood Count 4.21 M/uL (4.7-6.1); White Blood Count 11.24 K/uL (4.8-10.8)
[2018-11-13 06:25] LABS: BUN Creatinine Ratio 20.2 (10-20); Calcium 8.9 mg/dl (8.5-10.1); Creatinine Clr Calc Pharmacy 39.7 ml/min; Est GFR (African American) 49.4; Est GFR (Non-African American) 42.6
--- NOTE | 2018-11-13 07:03 | CT Scan Report ---
CT head/brain wo con CLINICAL HISTORY: right-sided weakness COMPARISON STUDY: 11/11/2018 TECHNIQUE: Axial CT of the brain is performed from the vertex to the skull base. IV contrast was not administered for this examination. A dose lowering technique was utilized adhering to the principles of ALARA. CT DOSE: 729.78 mGycm FINDINGS: No intra or extra-axial mass lesions are visualized. There is no CT evidence of acute cortical infarc tion. There is no evidence of midline shift. There is no acute hemorrhage. No calvarial fractures ar e visualized. There are patchy white matter hypodensities likely on a small vessel basis. There is evidence for a p rior left basal ganglia infarct with extension to the left external capsule. There is mild ventricular dilatation which is felt to be secondary to volume loss. There is no evidence of acute sinusitis IMPRESSION: No acute intracranial findings Electronically signed by: Jacky Bower M.D. 11/13/2018 7:01 AM
[2018-11-13] MEDS: ROSUVASTATIN CALCIUM 5 MG TAB PO SCH (08:11)
[2018-11-13] MEDS: SERTRALINE HCL 50 MG TABLET PO SCH (08:11)
[2018-11-13] MEDS: INSULIN ASPART 100 UNITS/ML 3 ML PEN SC SCH ×4 (08:13→20:39)
[2018-11-13] MEDS: CARVEDILOL 3.125 MG TAB PO SCH ×2 (08:50→16:34)
[2018-11-13] MEDS ORDERED: SODIUM CHLORIDE 0.9% 1000ML 1,000 ML IV ONE (10:09)
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
--- NOTE | 2018-11-13 14:49 | Hospitalist Progress Note ---
Date of Service November 13, 2018 Assessment & Plan (1) Slurred speech: Right sided weakness/Slurred Speech: ? 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 No significant stenosis or occlusion within the [place] of [place]. --Neck CTA: 60% narrowing right internal carotid artery at its origin. 50% narrowing left internal carotid artery at its origin. Normal vertebral basilar system. --Repeat CT head: No acute intracranial findings --Continue Aspirin, Plavix, Statin --Could not get MRI brain secondary to pacemaker Incompatibility --Appreciate Neurology Input --PT/OT, Fall precuations --Needs Vascular surgery follow up upon discharge REBECCA: Losartan held Continue IV fluids Monitor renal function Hypertensive Urgency: Likely situational BP variable Continue Coreg Resume Losartan as able Monitor Chronic systolic heart failure H/O Ischemic cardiomyopathy (EF of 40%, TTE 2018) No signs of exacerbation Diuretics held as patient on dry side. Monitor volume status coronary artery disease s/p CABG SSS sp PPM PVD as per records Continue ASA, plavix, Beta Frederick, Statin Hyperlipidemia Crestor prescription re-initiated last month outpatient by sow farm manager after normalization of LFTs. continue crestor Colorectal CA S/P surgery and chemoradiation Stable DM II: Diet-controlled Last A1c of 6.08 Jun 2018 Continue ISS while hospitalized Seizure Disorder Stable Continue Keppra H/O DVT Venous Doppler: No acute DVT Chronic anemia Hb at baseline Chronic Thrombocytopenia No bleeding issues Monitor CBC DVT Px: SCDs Re: thrombocytopenia Code Status Full code Disposition: PT/OT: Home with Home Health Vs SNF Subjective Patient is seen and examined at bedside Repeat CT head showed no acute intracranial process Speech and right sided weakness seemed to be his baseline Denies chest pain, dyspnea, dizziness No other complaints Clinically seemed to be dehydrated, Will give IV fluids Physical Exam 2 Vital Signs (Past 24 Hours): Last Vital Signs Temp 36.6 C 11/13/18 08:08 Pulse 62 11/13/18 08:08 Resp 16 11/13/18 08:08 BP 152/62 H 11/13/18 08:08 Pulse Ox 95 11/13/18 08:08 Physical Exam: Physical Exam: Vitals signs as noted above General Appearance:Moderately built and nourished, no apparent distress Head: normocephalic, Atraumatic Eyes: normal inspection, EOMI Neck: supple, Trachea midline Respiratory/Chest: Normal breath sounds, CTA Cardiovascular: S1, S2, faint murmur Abdomen/GI:Soft, Non tender, Bowel sounds present Extremities/Musculoskelatal:normal inspection, no edema Neurologic/Psych:AAOX3, Right sided hemiparesis RLE Skin: normal color, warm Results & Data Laboratory Results Short CBC 11/13/18 Range/Units 05:44 WBC 11.24 H (4.8-10.8) K/uL Hgb 12.8 L (14.0-18.0) g/dL Hct 39.1 L (42-52) % Plt Count 123 L (130-400) K/uL BMP 11/13/18 05:44 Sodium 142 Potassium 4.0 Chloride 108 H Carbon Dioxide 26 BUN 31 H Creatinine 1.53 H Glucose 139 H Calcium 8.9 Diagnostic Findings Venous Doppler: No sonographic evidence of deep venous thrombosis within the right or left lower extremity. CT head: No acute intracranial findings
[2018-11-13] MEDS: MULTIVITAMIN TAB PO SCH (16:35)
[2018-11-13] MEDS: ASPIRIN 81 MG ECTAB PO SCH (20:37)
[2018-11-13] MEDS: CLOPIDOGREL BISULFATE 75 MG TAB PO SCH (20:38)
[2018-11-13] MEDS: KEPPRA PO SCH (20:39)
[2018-11-13] MEDS: INSULIN GLARGINE SOLOSTAR 100 UNITS/ML 3 ML PEN SC SCH (20:40)
[2018-11-14 06:02] LABS: Hematocrit (blood only) 38.1 % (42-52); Hemoglobin 12.6 g/dL (14.0-18.0); Mean Corpuscular Hgb Conc 33.1 g/dL (32-36); Mean Corpuscular Volume 93.8 fL (80-100); Mean Platelet Volume 9.5 fL (7.4-10.4); Platelet Count 117 K/uL (130-400); RDW Coefficient of Variation 13.9 % (11.5-14.5); RDW Standard Deviation 47.2 fL (36.4-46.3); Red Blood Count 4.06 M/uL (4.7-6.1); White Blood Count 7.35 K/uL (4.8-10.8)
[2018-11-14 06:31] LABS: BUN Creatinine Ratio 21.2 (10-20); Calcium 8.4 mg/dl (8.5-10.1); Creatinine Clr Calc Pharmacy 42.1 ml/min; Est GFR (African American) 61.3; Est GFR (Non-African American) 52.9; Potassium 3.8 mmol/L (3.5-5.1)
[2018-11-14] MEDS: INSULIN ASPART 100 UNITS/ML 3 ML PEN SC SCH ×2 (08:11→11:52)
[2018-11-14] MEDS: ROSUVASTATIN CALCIUM 5 MG TAB PO SCH (08:15)
[2018-11-14] MEDS: CARVEDILOL 3.125 MG TAB PO SCH (08:15)
--- NOTE | 2018-11-14 10:13 | Hospitalist Progress Note ---
Date of Service November 14, 2018 Assessment & Plan (1) Slurred speech: Right sided weakness/Slurred Speech: ? 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 No significant stenosis or occlusion within the [place] of [place]. --Neck CTA: 60% narrowing right internal carotid artery at its origin. 50% narrowing left internal carotid artery at its origin. Normal vertebral basilar system. --Repeat CT head: No acute intracranial findings --Continue Aspirin, Plavix, Statin --Could not get MRI brain secondary to pacemaker Incompatibility --Appreciate Neurology Input --PT/OT, Fall precuations --Needs Vascular surgery follow up upon discharge: Updated patient and family REBECCA: Losartan held Resolved DC IV fluids Monitor renal function Hypertensive Urgency: Likely situational BP variable Continue Coreg Resume home HTN meds as able Monitor Chronic systolic heart failure H/O Ischemic cardiomyopathy (EF of 40%, TTE 2018) No signs of exacerbation Diuretics held during hospital stay as he is on dry side. Monitor volume status coronary artery disease s/p CABG SSS sp PPM PVD as per records Continue ASA, plavix, Beta Frederick, Statin Hyperlipidemia Crestor prescription re-initiated last month outpatient by robot technician after normalization of LFTs. continue crestor Colorectal CA S/P surgery and chemoradiation Stable DM II: Diet-controlled Last A1c of 6.08 Jun 2018 Continue ISS while hospitalized Seizure Disorder Stable Continue Keppra H/O DVT Venous Doppler: No acute DVT Chronic anemia Hb at baseline Chronic Thrombocytopenia No bleeding issues Monitor CBC DVT Px: SCDs Re: thrombocytopenia Code Status Full code Disposition: PT/OT: Home with Home Health Patient refuses Rehab placement Subjective Patient is seen and examined at bedside Mild left sided headache today improving Did not sleep well overnight No change in vision No new weakness Speech and right sided weakness seemed to be his baseline Denies chest pain, dyspnea, dizziness No other complaints Discussed with Patient's today Physical Exam 2 Vital Signs (Past 24 Hours): Last Vital Signs Temp 36.4 C L 11/14/18 07:13 Pulse 59 L 11/14/18 07:13 Resp 20 11/14/18 07:13 BP 154/90 H 11/14/18 07:13 Pulse Ox 95 11/14/18 07:13 Physical Exam: Physical Exam: Vitals signs as noted above General Appearance:Moderately built and nourished, no apparent distress Head: normocephalic, Atraumatic Eyes: normal inspection, EOMI Neck: supple, Trachea midline Respiratory/Chest: Normal breath sounds, CTA Cardiovascular: S1, S2, faint murmur Abdomen/GI:Soft, Non tender, Bowel sounds present Extremities/Musculoskelatal:normal inspection, no edema Neurologic/Psych:AAOX3, Right sided hemiparesis RLE Skin: normal color, warm Results & Data Laboratory Results Short CBC 11/14/18 Range/Units 05:27 WBC 7.35 (4.8-10.8) K/uL Hgb 12.6 L (14.0-18.0) g/dL Hct 38.1 L (42-52) % Plt Count 117 L (130-400) K/uL BMP 11/14/18 05:27 Sodium 142 Potassium 3.8 Chloride 109 H Carbon Dioxide 28 BUN 27 H Creatinine 1.28 Glucose 93 Calcium 8.4 L
[2018-11-14] MEDS ORDERED: STROKE PATIENT DISCHARGE STA (10:43)
--- NOTE | 2018-11-14 10:44 | Discharge Summary ---
Date of Service November 14, 2018 Admission HPI Per Admitting Provider History obtained from patient, family, and records. Patient is a fair historian. Communication limited by some dysphasia. Medical history significant for chronic systolic heart failure secondary to ischemic cardiomyopathy (EF of 40%, TTE 2018), coronary artery disease s/p CABG , SSS sp PPM, HTN, hx CVA, PVD, hyperlipidemia, colorectal CA status post surgery status post chemoradiation, DM2 diet-controlled, history of seizure disorder on Keppra, history DVT as per records, chronic anemia baseline hemoglobin 12-13, chronic thrombocytopenia. Recent confinement March 2018 for chest pain. Hours ago patient noted increasing usual right leg weakness, more dragging, patient had difficulty getting off the toilet. Patient noted by family to be a little more slurred and confused as usual. Admits to dry cough symptoms. No fever, no chills. Denies dysuria. Patient asking for more oxycodone tablets than usual for abdominal pain as per patient . Compliant with home antiplatelet medications. Medical History as above Recent outpatient [facility] [place] cardi[place] follow-up visit 10/2018. Crestor at reduced dosing of 5 mg daily to be resumed after normalization of LFTs as per outpatient note. still waiting for meds in the mail. Surgical History : CABG, vascular procedures, pacemaker, partial colectomy, appendectomy, hernia repair, TA, skin graft surgery Family History : Multiple myeloma, diabetes, heart disease, breast cancer, prostate cancer Personal/Social history : Non-smoker, no EtOH intake, lives with Admission Exam Per Admitting Provider GENERAL: Slightly anxious, no respiratory distress, dysphasic SKIN: Pallor , warm HEENT: Alopecia, bespectacled, pink palpebral conjunctivae, no ptosis, chronic facial asymmetry, dry buccal mucosa NECK : Supple, no tenderness CHEST : CTA, no tenderness HEART : RRR, systolic murmur ABDOMEN: Some distention, healed incisional scars, nontender EXTREMITIES : No LE swelling/tenderness, no other conspicuous deformities noted NEUROLOGIC : Coherent, dysphasic, chronic facial asymmetry, MMT RLE 4/5, LLE 5/5 , occasional rest tremors noted on the hands Principal Diagnosis Discharge Information Discharge Diagnosis Stroke like symptoms Discharge Goals Decrease discomfort,Improve disease control, Improve function Discharge Activity Limitations Resume your previous activity Discharge Data Allergies Allergy/AdvReac Type Severity Reaction Status Date / Time iodine Allergy Severe airway Verified 01/06/19 21:04 edema tramadol Allergy Severe seizures Verified 11/11/18 21:04 oxycodone Allergy Unknown "itchiness Verified 11/11/18 21:04 all over" felodipine AdvReac Mild cough Verified 11/11/18 21:04 ANCELMO Inhibitors AdvReac Unknown COUGHING Verified 11/11/18 21:04 codeine AdvReac Unknown hallucinations, Verified 11/11/18 21:04 depression Consultations 11/12/18 00:18 ED Decision to Admit Stat 11/12/18 03:42 Consult Case Management - Discharge Planning Routine Consult Case Management - Discharge Planning Routine Consult Neurology Routine Procedures Performed CT head: No acute intracranial findings Head CTA: 1. 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 2. No significant stenosis or occlusion within the [place] of [place]. Neck CTA: 1. 60% narrowing right internal carotid artery at its origin. 2. 50% narrowing left internal carotid artery at its origin. 3. Normal vertebral basilar system. CT ABD: 1. No evidence of bowel obstruction. No evidence of free air 2. Trace left pleural effusion 3. Basilar airspace opacities likely atelectatic although an associated inflammatory/infectious process the left lung base cannot be excluded 4. Postsurgical changes involving the rectosigmoid. Presacral and perirectal soft tissue thickening unchanged the prior study. 5. No evidence of acute diverticulitis. No acute inflammatory process. Venous Doppler: No sonographic evidence of deep venous thrombosis within the right or left lower extremity. Repeat CT head: No acute intracranial findings Ordered Studies 11/11/18 21:27 CT angio head w con Stat CT angio neck with con Stat CT head/brain wo con Stat 11/12/18 01:38 CT abd pelvis wo con Urgent 11/12/18 17:44 US venous doppler LE BI Routine 11/13/18 07:00 CT head/brain wo con Routine Hospital Course (1) Slurred speech: Right sided weakness/Slurred Speech: ? 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 No significant stenosis or occlusion within the [place]. --Neck CTA: 60% narrowing right internal carotid artery at its origin. 50% narrowing left internal carotid artery at its origin. Normal vertebral basilar system. --Repeat CT head: No acute intracranial findings --Continue Aspirin, Plavix, Statin --Could not get MRI brain secondary to pacemaker Incompatibility --Appreciate Neurology Input --PT/OT, Fall precuations --Needs Vascular surgery follow up upon discharge: Updated patient and family REBECCA: Losartan held Resolved DC IV fluids Monitor renal function Hypertensive Urgency: Likely situational BP variable Continue Coreg Resume home HTN meds as able Monitor Chronic systolic heart failure H/O Ischemic cardiomyopathy (EF of 40%, TTE 2018) No signs of exacerbation Diuretics held during hospital stay as he is on dry side. Monitor volume status coronary artery disease s/p CABG SSS sp PPM PVD as per records Continue ASA, plavix, Beta Frederick, Statin Hyperlipidemia Crestor prescription re-initiated last month outpatient by stable hand after normalization of LFTs. continue crestor Colorectal CA S/P surgery and chemoradiation Stable DM II: Diet-controlled Last A1c of 6.08 Jun 2018 Continue ISS while hospitalized Seizure Disorder Stable Continue Keppra H/O DVT Venous Doppler: No acute DVT Chronic anemia Hb at baseline Chronic Thrombocytopenia No bleeding issues Monitor CBC DVT Px: SCDs Re: thrombocytopenia Code Status Full code Disposition: PT/OT: Home with Home Health Patient refuses Rehab placement Total Time Total Time Spent Total Time Spent (In Minutes): 39 minutes Total Time Includes: Examination of the Patient, Discharge Planning, Medication Reconciliation, Communication With Other Providers and Other Discharge Plan Discharge Items Patient Disposition: Home - Home Health Services Reason For Visit: SLURRED SPEECH Discharge Diagnosis: Stroke like symptoms Discharge Goals: Decrease discomfort, Improve disease control and Improve function Activity: Resume your previous activity Exercise/Sports: Gradually increase as tolerated Non-emergency contact: Primary Care Provider, Surgeon and Neurologist Call non-emergency contact if: you have any medication questions, your symptoms worsen, your pain is not controlled, your pain is worsening, your pain is unusual for you and you have a fever Diet: Carb Consistent or DM2 and Heart Healthy Addtl Provider Instructions: Follow up with your PCP on 11/19/18 at 12:40pm Follow up with your Neurologist on 12/06/18 at 2:00pm Follow up with your Neurosurgeon in [place] as advised Discuss with your doctor regarding your dose of Rosuvastatin to keep you LDL less 70 (May increase to 20mg if your Liver function tests remain normal) Seek immediate medical attention if your symptoms reoccur or worsen Risk Factors for Stroke: You can reduce your chances of stroke by working with your medical provider to adopt a healthy lifestyle. Some specific ways to lower your chance of stroke are: * If you are a smoker, now is the time to stop smoking cigarettes * If you are diabetic, improve the control of your blood sugars * Avoid excessive amounts of alcohol * Control high blood pressure * Lose weight if you are overweight * Be sure to lead an active lifestyle * Eat a healthy diet low in salt, cholesterol and fat You should know about other risk factors for stroke that you are unable to control. These include: * Age 55 years or older * Male gender * Certain racial groups: , or / * Family History of Stroke, Mini stroke or Heart Attack * Sickle Cell Disease Follow Up: It is important for you to keep your follow up appointments with your medical provider. Who to Call and When: Medical Emergencies: Call 911 immediately if you experience any of the following warning signs and symptoms of Stroke: * Sudden numbness or weakness of the face, arm or leg, especially on one side of the body * Sudden confusion, trouble speaking or understanding * Sudden trouble seeing in one or both eyes * Sudden trouble walking, dizziness, loss of balance or coordination * Sudden severe headache with no cause Do not delay calling 911 if you experience any warning signs or symptoms of a stroke. Delay in seeking medical attention may affect what treatments can be given to you. . Prescriptions: Continue magnesium 200 mg Tablet 200 mg PO DAILY PRN (Reason: NEEDED) RF: 0 rosuvastatin 5 mg Tablet 5 mg PO DAILY RF: 0 multivitamin Tablet 1 tab PO QDD RF: 0 furosemide [Lasix] 40 mg tablet 10 mg PO QAM RF: 0 potassium chloride [Klor-Con 10] 10 mEq tablet extended release 10 meq PO QDD RF: 0 clopidogrel [Plavix] 75 mg tablet 75 mg PO HS RF: 0 aspirin [Aspir-Low] 81 mg Tablet,Delayed Release (Dr/Ec) 81 mg PO HS RF: 0 dicyclomine 20 mg tablet 20 mg PO Q6 PRN (Reason: Abdominal Discomfort) RF: 0 diphenhydramine HCl [Benadryl] 25 mg Capsule 50 mg PO DIRECTED PRN (Reason: TAKE WITH OXYCODONE-ITCHINESS) RF: 0 calcium polycarbophil [Fiber-Tabs] 625 mg Tablet 1 tab PO QAM RF: 0 nitroglycerin [Nitrostat] 0.4 mg tablet, sublingual 0.4 mg Sublingual UD PRN (Reason: Chest Pain) RF: 0 hydralazine 50 mg tablet 25 mg PO TIDM RF: 0 losartan [Cozaar] 100 mg tablet 100 mg PO QAM RF: 0 sertraline [Zoloft] 50 mg tablet 50 mg PO QDL RF: 0 oxycodone [Roxicodone] 5 mg tablet 5 mg PO Q6 PRN (Reason: Pain) RF: 0 carvedilol [Coreg] 12.5 mg tablet 18.75 mg PO BIDM RF: 0 levetiracetam [Keppra XR] 500 mg tablet extended release 24 hr 1,000 mg PO HS RF: 0 Stand-Alone Forms: [facility] Discharge Orders: Discharge Order (Routine); Ordered 11/14/18 Ordered By: Gary Baez Admission Data Admit Date/Time: 11/12/18 01:41 Attending Provider: Lilliam Anaya Admit Provider: Yves King Primary Care Provider: Xavi Moreno Other Providers: Yves King ; Vernell Reich ; Petr Lopez ; Vernell Gifford ; Efrain Mccormick ; Malachi Weller ; Saloni Early ; Gary Baez Service: Telemetry Medical Other Interventions: Discharge Summary Assessment (RN) Last Done: 11/14/18 11:32 Pending Studies at Discharge: No
[2018-11-14] MEDS: SERTRALINE HCL 50 MG TABLET PO SCH (11:14)
--- NOTE | 2018-11-14 16:17 | Pharmacy Report ---
Pharmacist Stroke Counseling - Date of Service November 14, 2018 - Scope: Pharmacy has been consulted to provide medication discharge counseling for this patient admitted with slurred speech, possible TIA as per the Pharmacist Discharge Counseling for Stroke Patients Protocol. - Medications on Discharge: Home Medications Medication Instructions Recorded Confirmed aspirin [Aspir-Low] 81 mg PO HS 09/07/18 11/11/18 calcium polycarbophil [Fiber-Tabs] 1 tab PO QAM 09/07/18 11/11/18 carvedilol [Coreg] 18.75 mg PO BIDM 09/07/18 11/11/18 clopidogrel [Plavix] 75 mg PO HS 09/07/18 11/11/18 dicyclomine 20 mg PO Q6 PRN 09/07/18 11/11/18 diphenhydramine HCl [Benadryl] 50 mg PO DIRECTED PRN 09/07/18 11/11/18 furosemide [Lasix] 10 mg PO QAM 09/07/18 11/11/18 hydralazine 25 mg PO TIDM 09/07/18 11/11/18 levetiracetam [Keppra XR] 1,000 mg PO HS 09/07/18 11/11/18 losartan [Cozaar] 100 mg PO QAM 09/07/18 11/11/18 multivitamin 1 tab PO QDD 09/07/18 11/11/18 nitroglycerin [Nitrostat] 0.4 mg SUBLINGUAL UD PRN 09/07/18 11/11/18 oxycodone [Roxicodone] 5 mg PO Q6 PRN 09/07/18 11/11/18 potassium chloride [Klor-Con 10] 10 meq PO QDD 09/07/18 11/11/18 sertraline [Zoloft] 50 mg PO QDL 09/07/18 11/11/18 magnesium 200 mg PO DAILY PRN 11/11/18 11/11/18 rosuvastatin 5 mg PO DAILY 11/14/18 11/14/18 - Action: The above medications, specifically ones for stroke treatment/prophylaxis, have been reviewed in detail with the patient and/or patient chemical sales representative(s) prior to discharge. This includes indication, common adverse reactions, drug interactions, and medication administration. Medication counseling has been employed using the teach-back method to ensure understanding. - Outcome: The patient and/or patient chemical sales representative(s) have demonstrated understanding of the medications. Please note, they are aware that the pharmacist will call them within 72 hours post-discharge to confirm that the appropriate medications are being taken and answer any further medication related questions the patient might have at that time. Contact information Individual to be contacted: Yasmeen Relationship to patient (if applicable): Phone number: [phone] Best time to call: [phone] Additional comments: Reviewed Aspirin, Plavix and Crestor specifically. has already picked up the Rx for Crestor. Pt was on Crestor in the past but this was stopped due to elevated LFT's. It is being introduced at low dose and provider plans on following LFT's. had concerns about the Hydralazine dose that was order for him. She asked what he was ordered here and what was recorded on his med rec. When I told her he was ordered 25mg TID she said this was wrong and should be 12.5mg TID as he used 1/4th of a 50mg tablet TID. I have attempted to forward this information to [facility] but am still awaiting clarification. Pt's would be the best person to discuss medications with as she manages meds. She does use a pillbox ("bingo box"). Thank you for allowing pharmacy to be involved in the care of this patient. Please call [phone] or [phone] with any additional questions
--- NOTE | 2018-11-16 11:42 | Pharmacy Report ---
Pharmacist Post D/C Phone Note - Phone Note: Date of phone call: November 16, 2018. Individual with whom pharmacist spoke to: Yasmeen () The following questions were reviewed during the phone call with responses listed below each: Can you tell me the medications that you are currently taking as well as when and how you take each medication? -See Table Below When have you missed any doses of your medications? - denies missed doses - sets pill box for What side effects are you having from your medications, specifically, the new medications you were started on? - denies side effects What questions do you have about your medications? - denies questions What problems are you having obtaining your medications? - no problems - pt was already on ASA and plavix prior to admission, picked up Rx for crestor prior to patient discharge When is your next appointment with your primary care doctor? - November 19 Additional comments: - reports Angelo is doing well post discharge. He is moving around, eating well and has no weakness. As per the Pharmacist Discharge Counseling for Stroke Patients Protocol, this phone call has been completed within 72 hours of discharge. Thank you for allowing us to be involved in the care of this patient. - Home Medications: Home Medications Medication Instructions Recorded Confirmed aspirin [Aspir-Low] 81 mg PO HS 09/07/18 11/11/18 calcium polycarbophil [Fiber-Tabs] 1 tab PO QAM 09/07/18 11/11/18 carvedilol [Coreg] 18.75 mg PO BIDM 09/07/18 11/11/18 clopidogrel [Plavix] 75 mg PO HS 09/07/18 11/11/18 dicyclomine 20 mg PO Q6 PRN 09/07/18 11/11/18 diphenhydramine HCl [Benadryl] 50 mg PO DIRECTED PRN 09/07/18 11/11/18 furosemide [Lasix] 10 mg PO QAM 09/07/18 11/11/18 levetiracetam [Keppra XR] 1,000 mg PO HS 09/07/18 11/11/18 losartan [Cozaar] 100 mg PO QAM 09/07/18 11/11/18 multivitamin 1 tab PO QDD 09/07/18 11/11/18 nitroglycerin [Nitrostat] 0.4 mg SUBLINGUAL UD PRN 09/07/18 11/11/18 oxycodone [Roxicodone] 5 mg PO Q6 PRN 09/07/18 11/11/18 potassium chloride [Klor-Con 10] 10 meq PO QDD 09/07/18 11/11/18 sertraline [Zoloft] 50 mg PO QDL 09/07/18 11/11/18 magnesium 200 mg PO DAILY PRN 11/11/18 11/11/18 rosuvastatin 5 mg PO DAILY 11/14/18 11/14/18 New Rx's Medication Instructions Recorded hydralazine 12.5 mg PO TIDM #0 tab 11/14/18
--- NOTE | 2018-12-17 07:42 | Coding Letter ---
A supporting diagnosis is required for the test/procedure performed on this patient in order for us to be reimbursed by the patient's insurance. Please provide a supporting diagnosis for the following test/procedure listed below next to the test name along with your signature. *If there is no additional diagnosis for this patient that would support the following test/procedure please document that below next to the test/procedure. Test(s)/Procedure(s) that require a supporting diagnosis: * [id number] VENOUS DOPPLER BILATERAL LOWER EXTREMITY DIAGNOSIS: DATE OF SERVICE: 11/12/18 Provider Signature: Date: Thank you Xavi Finley [facility] Information Management Once completed, please kindly fax back to [phone] For questions please call [phone] [place]
--- NOTE | 2018-12-17 07:44 | Coding Query ---
A supporting diagnosis is required for the test/procedure performed on this patient in order for us to be reimbursed by the patient's insurance. Please provide a supporting diagnosis for the following test/procedure listed below next to the test name along with your signature. *If there is no additional diagnosis for this patient that would support the following test/procedure please document that below next to the test/procedure. Test(s)/Procedure(s) that require a supporting diagnosis: * 04197 VENOUS DOPPLER BILATERAL LOWER EXTREMITY DIAGNOSIS: H/O DVT DATE OF SERVICE: 11/12/18 Provider Signature: Gary Baez Date: ___10/24____ Thank you Xavi Fin[facility] Information Management Once completed, please kindly fax back to [phone] For questions please call [phone] [facility]
--- NOTE | 2018-12-26 00:02 | History & Physical Report ---
Date of Service December 26, 2018 Assessment & Plan (1) TIA (transient ischemic attack): Recurrent symptoms ? Post stroke recrudescence secondary to acute diarrheal illness rule out C. difficile Hypertensive urgency secondary to above chronic systolic heart failure secondary to ischemic cardiomyopathy (EF of 40%, TTE 2018) Patient on the dry side. coronary artery disease s/p CABG/PVD as per records SSS sp PPM, paced rhythm hyperlipidemia on statin Rx Colorectal CA status post surgery status post chemoradiation DM2 diet-controlled, well-controlled as of recent inpatient hemoglobin A1c of 6.5 last month seizure disorder, stable on Keppra past hx DVT as per records chronic anemia, hemoglobin better than baseline likely secondary to hemoconcentration chronic thrombocytopenia OBS Medical telemetry Neurochecks repeat CT head after 24 hours as MRI precluded by patient's PPM Continue antiplatelet and statin meds for signature prevention Permissive hypertension for now until recurrent CVA ruled out Gentle IV hydration, hold home diuretics for now until creatinine baseline Stool C. difficile Neurology consult RE recurrent TIA symptoms Basal insulin, ISS BG goal 140-180 PT OT eval DVT prophylaxis. SCDs RE thrombocytopenia Full code Patient's requesting for updates from providers. Mrs. Sylvie Dewitt thru [phone]. History of Present Illness Chief Complaint: Slurred speech, strokelike symptoms Primary Care Provider: Xavi Moreno MD History obtained from patient, family, and records. Limited history from patient secondary to chronic dysarthria. Medical history significant for chronic systolic heart failure secondary to ischemic cardiomyopathy (EF of 40%, TTE 2018), coronary artery disease s/p CABG , SSS sp PPM, HTN, hx CVA, PVD, hyperlipidemia, colorectal CA status post surgery status post chemoradiation, DM2 diet-controlled, history of seizure disorder on Keppra, history DVT as per records, chronic anemia baseline hemoglobin 12-13, chronic thrombocytopenia. Recent confinement last month for possible TIA symptoms. No acute intracranial findings on CT head. MRI could not be done due to patient's pacemaker's incompatibility with facility MRI (despite being pacemaker friendly as per patient's .) Patient went to bed at 1 PM today after went out on errand. When returned around 6 PM, she noted that patient's speech was slurred, more prominent facial drooping, more right-sided weakness than usual. Diarrhea and low-grade fever, diffuse ache symptoms noted yesterday as per . No chest pain, no S OB no cough symptoms. SBP at home noted to be 180s, higher than usual as per . Patient compliant with home medications. Stroke alert called upon arrival at the ER. Symptoms currently improving as per patient . Medical History as above Recent outpatient [facility] [place] cardiology follow-up visit 10/2018. Crestor at reduced dosing of 5 mg daily to be resumed after normalization of LFTs as per outpatient note. still waiting for meds in the mail. Surgical History : CABG, vascular procedures, pacemaker, partial colectomy, appendectomy, hernia repair, TA, skin graft surgery Family History : Multiple myeloma, diabetes, heart disease, breast cancer, prostate cancer Personal/Social history : Non-smoker, no EtOH intake, lives with Allergies Allergy/AdvReac Type Severity Reaction Status Date / Time tramadol Allergy Severe seizures Verified 12/25/18 23:28 iodine Allergy Intermediate airway Verified 12/25/18 23:28 edema oxycodone Allergy Unknown "itchiness Verified 12/25/18 23:28 all over" felodipine AdvReac Mild cough Verified 12/25/18 23:28 ANCELMO Inhibitors AdvReac Unknown COUGHING Verified 12/25/18 23:28 codeine AdvReac Unknown hallucinations, Verified 12/25/18 23:28 depression Home Medications Home Medications Medication Instructions Recorded Confirmed Type aspirin [Aspir-Low] 81 mg PO HS 09/07/18 12/25/18 History calcium polycarbophil [Fiber-Tabs] 1 tab PO QAM 09/07/18 12/25/18 History carvedilol [Coreg] 18.75 mg PO BIDM 09/07/18 12/25/18 History clopidogrel [Plavix] 75 mg PO HS 09/07/18 12/25/18 History dicyclomine 20 mg PO Q6 PRN 09/07/18 12/25/18 History diphenhydramine HCl [Benadryl] 50 mg PO DIRECTED PRN 09/07/18 12/25/18 History furosemide [Lasix] 10 mg PO QAM 09/07/18 12/25/18 History levetiracetam [Keppra XR] 1,000 mg PO HS 09/07/18 12/25/18 History losartan [Cozaar] 100 mg PO QAM 09/07/18 12/25/18 History multivitamin 1 tab PO QDD 09/07/18 12/25/18 History nitroglycerin [Nitrostat] 0.4 mg SUBLINGUAL UD PRN 09/07/18 12/25/18 History oxycodone [Roxicodone] 5 mg PO Q6 PRN 09/07/18 12/25/18 History potassium chloride [Klor-Con 10] 10 meq PO QDD 09/07/18 12/25/18 History sertraline [Zoloft] 50 mg PO QDL 09/07/18 12/25/18 History magnesium 200 mg PO DAILY PRN 11/11/18 12/25/18 History rosuvastatin 5 mg PO DAILY 11/14/18 12/25/18 History hydralazine 12.5 mg PO TIDM 12/25/18 12/25/18 History Past Med/Surg History Medical History Left bundle branch block (Chronic) Dyslipidemia (Chronic) Carotid disease, bilateral (Chronic) "asymptomatic" Diabetes mellitus, type II (Chronic) Benign prostatic hyperplasia (Chronic) Hypertension (Chronic) History of skin cancer (Chronic) Malignant neoplasm of rectum (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/15) "Rectal bleeding Status post colonoscopy and biopsy 04/02/2015 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 Status post endoscopic ultrasound stage [id number] Neoadjuvant radiation and chemotherapy Chemotherapy comprised of Xeloda Status post completion of radiation therapy 06/24/2015 received 5460 cGy Status post rectosigmoid resection 08/27/2015 ypT2 ypN0 M0 Status post ileostomy closure 04/14/2016, gait by small bowel obstruction and then hemorrhage Status post CVA and then slow wound healing" On 01/20/16 16:12 Celeste Burrell wrote "Rectal bleeding Status post colonoscopy and biopsy 04/02/2015 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 Status post endoscopic ultrasound stage [id number] Neoadjuvant radiation and chemotherapy Chemotherapy comprised of Xeloda Status post completion of radiation therapy 06/24/2015 received 5460 cGy Status post rectosigmoid resection 08/27/2015 ypT2 ypN0 M0" On 07/02/15 10:41 Celeste Burrell wrote "Rectal bleeding Status post colonoscopy and biopsy 04/02/2015 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 Stephens [facility] [place] 2002 DIAZ-LAD, SVG left circumflex" Status post cardiac pacemaker procedure (Chronic) "initial 2005, generator change 2011" Status post cholecystectomy (Chronic) Status post tonsillectomy (Chronic) Status post shoulder surgery (Chronic) S/P colon resection (Chronic) H/O ileostomy (Chronic) Family History Other Family history non-contributory Social History Current Living Situation: Spouse Other Information That Helps Us Care for You: No Feels Safe at Home: Yes Safety Concerns: Feels Safe At This Time Smoking Status: Never smoker Hx Alcohol Use: No Hx Substance Use: No Beliefs That Will Affect Care: None Preferred Language: [place] Communication Ability: Impaired Communication Ability Comment: Intermittent slurred speech and expressive aphasia from previous CVA Bucket Wash Operator Required: No Review of Systems As per HPI, all 10 systems reviewed, all other ROS negative Physical Exam 2 Vital Signs (Past 24 Hours): Last Vital Signs Temp 36.8 C 11/14/18 14:44 Pulse 58 L 11/14/18 14:44 Resp 18 11/14/18 14:44 BP 139/77 11/14/18 14:44 Pulse Ox 95 11/14/18 14:44 Physical Exam: GENERAL: Slightly anxious, no respiratory distress, dysarthric SKIN: Pallor , warm HEENT: Alopecia, bespectacled, pink palpebral conjunctivae, no ptosis, chronic facial asymmetry, dry buccal mucosa NECK : Supple, no tenderness CHEST : CTA, no tenderness HEART : Bradycardic, systolic murmur ABDOMEN: Some distention, healed incisional scars, nontender EXTREMITIES : No LE swelling/tenderness, no other conspicuous deformities noted NEUROLOGIC : Coherent, dysarthric, chronic facial asymmetry, MMT RLE 4/5, LLE 5/ 5 Results & Data Laboratory Results Laboratory Results WBC 7.35 K/uL (4.8-10.8) 11/14/18 05:27 RBC 4.06 M/uL (4.7-6.1) L 11/14/18 05:27 Hgb 12.6 g/dL (14.0-18.0) L 11/14/18 05:27 Hct 38.1 % (42-52) L 11/14/18 05:27 MCV 93.8 fL (80-100) 11/14/18 05:27 MCH 31.0 pg (25-34) 11/14/18 05:27 MCHC 33.1 g/dL (32-36) 11/14/18 05:27 RDW Std Deviation 47.2 fL (36.4-46.3) H 11/14/18 05:27 RDW Coeff of Arabella 13.9 % (11.5-14.5) 11/14/18 05:27 Plt Count 117 K/uL (130-400) L 11/14/18 05:27 MPV 9.5 fL (7.4-10.4) 11/14/18 05:27 Immature Gran % (Auto) 0.9 % 11/12/18 05:40 Neut % (Auto) 85.8 % 11/12/18 05:40 Lymph % (Auto) 12.7 % 11/12/18 05:40 [place] % (Auto) 0.6 % 11/12/18 05:40 Eos % (Auto) 0.0 % 11/12/18 05:40 Baso % (Auto) 0.0 % 11/12/18 05:40 Immature Gran # (Auto) 0.05 K/uL (0.00-0.02) H 11/12/18 05:40 Neut # (Auto) 4.60 K/uL (1.4-6.5) 11/12/18 05:40 Lymph # (Auto) 0.68 K/uL (1.2-3.4) L 11/12/18 05:40 [place] # (Auto) 0.03 K/uL (0.11-0.59) L 11/12/18 05:40 Eos # (Auto) 0.00 K/uL (0-0.5) 11/12/18 05:40 Baso # (Auto) 0.00 K/uL (0-0.2) 11/12/18 05:40 Sodium 142 mmol/L (136-145) 11/14/18 05:27 Potassium 3.8 mmol/L (3.5-5.1) 11/14/18 05:27 Chloride 109 mmol/L (98-107) H 11/14/18 05:27 Carbon Dioxide 28 mmol/L (21-32) 11/14/18 05:27 Anion Gap 5.0 (3-11) 11/14/18 05:27 BUN 27 mg/dl (7-18) H 11/14/18 05:27 Creatinine 1.28 mg/dl (0.6-1.4) 11/14/18 05:27 Est Cr Clr Drug Dosing 42.1 ml/min 11/14/18 05:27 Est GFR ( Amer) 61.3 11/14/18 05:27 Est GFR (Non-Af Amer) 52.9 11/14/18 05:27 BUN/Creatinine Ratio 21.2 (10-20) H 11/14/18 05:27 Glucose 93 mg/dl (70-99) 11/14/18 05:27 POC Glucose 137 (70-99) H 11/14/18 11:40 Estimat Average Glucose 140 mg/dl 11/11/18 21:00 Hemoglobin A1c 6.5 % (4.5-5.6) H 11/11/18 21:00 Calcium 8.4 mg/dl (8.5-10.1) L 11/14/18 05:27 Phosphorus 2.6 mg/dl (2.5-4.9) 11/11/18 21:00 Magnesium 2.1 mg/dl (1.8-2.4) 11/11/18 21:00 Total Bilirubin 0.5 mg/dl (0.2-1) 11/11/18 21:00 Direct Bilirubin < 0.1 mg/dl (0-0.2) 11/11/18 21:00 AST 24 U/L (15-37) 11/11/18 21:00 ALT 31 U/L (12-78) 11/11/18 21:00 Alkaline Phosphatase 133 U/L (45-117) H 11/11/18 21:00 Total Creatine Kinase 35 U/L (39-308) L 11/11/18 21:00 Troponin I 0.016 ng/ml (0-0.045) 11/11/18 21:00 NT-Pro-B Natriuret Pep 1307 pg/ml (0-1800) 11/11/18 21:00 Total Protein 7.2 gm/dl (6.4-8.2) 11/11/18 21:00 Albumin 3.5 gm/dl (3.4-5.0) 11/11/18 21:00 Globulin 3.7 gm/dl (2.5-4.0) 11/11/18 21:00 Albumin/Globulin Ratio 0.9 (0.9-2) 11/11/18 21:00 Triglycerides 172 mg/dl (0-150) H 11/12/18 05:40 Cholesterol 176 mg/dl (0-200) 11/12/18 05:40 LDL Cholesterol, Calc 112 mg/dl 11/12/18 05:40 VLDL Cholesterol, Calc 34 mg/dl 11/12/18 05:40 HDL Cholesterol 30 mg/dl 11/12/18 05:40 Cholesterol/HDL Ratio 6 11/12/18 05:40 Lipase 73 U/L (73-393) 11/11/18 21:00 TSH 2.920 uIu/ml (0.300-4.500) 11/11/18 21:00 Urine Color Yellow 11/12/18 00:42 Urine Appearance Clear (Clear) 11/12/18 00:42 Urine pH 5.0 (4.5-7.5) 11/12/18 00:42 Ur Specific [place] > 1.045 (1.000-1.030) H 11/12/18 00:42 Urine Protein Negative (Negative) 11/12/18 00:42 Urine Glucose (UA) Negative (Negative) 11/12/18 00:42 Urine Ketones Negative (Negative) 11/12/18 00:42 Urine Blood Negative (Negative) 11/12/18 00:42 Urine Nitrite Negative (Negative) 11/12/18 00:42 Urine Bilirubin Negative (Negative) 11/12/18 00:42 Urine Urobilinogen Negative (Negative) 11/12/18 00:42 Ur Leukocyte Esterase Negative (Negative) 11/12/18 00:42 Influenza Type A (PCR) Neg for Influ A (Neg) 11/12/18 06:40 Influenza Type B (PCR) Neg for Influ B (Neg) 11/12/18 06:40 Diagnostic Findings Chest x-ray: 1. No change compared to the prior study. 2. Small left pleural effusion and bibasilar densities persist. This favors atelectasis. However, pneumonia could also have a similar appearance. EKG as per my interpretation : Rate 85, paced rhythm Head neck CTA: 1. No significant stenosis or occlusion within the [place]. 2. 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 3. Approximately 60-70% stenosis within the proximal right internal carotid artery and 50% stenosis within the proximal left internal carotid artery, unchanged.
== END 2018-11-14 16:35 | disposition home health service (06) ==
LOC: 2N 20:32 → ED 20:32 → SUATTDRO 11-12 01:41 → 2N 11-12 03:07
DX: R56.9 Unspecified convulsions; Z82.49 Family history of ischemic heart disease and other diseases of the circulatory system; Z86.718 Personal history of other venous thrombosis and embolism; Z88.5 Allergy status to narcotic agent; I25.10 Atherosclerotic heart disease of native coronary artery without angina pectoris; R53.1 Weakness; Z95.0 Presence of cardiac pacemaker; R47.81 Slurred speech; D64.9 Anemia, unspecified; Z83.3 Family history of diabetes mellitus; Z79.899 Other long term (current) drug therapy; I11.0 Hypertensive heart disease with heart failure; I49.5 Sick sinus syndrome; Z79.02 Long term (current) use of antithrombotics/antiplatelets; N40.0 Benign prostatic hyperplasia without lower urinary tract symptoms; I16.0 Hypertensive urgency; Z79.82 Long term (current) use of aspirin; N17.9 Acute kidney failure, unspecified; E86.0 Dehydration; Z86.73 Personal history of transient ischemic attack (TIA), and cerebral infarction without residual deficits; E78.5 Hyperlipidemia, unspecified; E11.9 Type 2 diabetes mellitus without complications; I50.22 Chronic systolic (congestive) heart failure; Z85.038 Personal history of other malignant neoplasm of large intestine; Z88.8 Allergy status to other drugs, medicaments and biological substances; Z95.1 Presence of aortocoronary bypass graft; K21.9 Gastro-esophageal reflux disease without esophagitis; D69.6 Thrombocytopenia, unspecified

== ENCOUNTER 2018-12-25 21:22 | Inpatient (IN) ==
[2018-12-25] MEDS ORDERED: OPTIRAY 320 125ml IV PRN (21:35)
[2018-12-25] MEDS ORDERED: SODIUM CHLORIDE 0.9% 1000ML 500 ML IV ONE (21:37)
--- NOTE | 2018-12-25 21:41 | CT Scan Report ---
HEAD CT NONCONTRAST CT DOSE: HISTORY: Stroke evaluation TECHNIQUE: Multiaxial CT images of the head were performed without the use of intravenous contrast. A utomated exposure control was utilized for this study. A dose lowering technique was utilized adheri ng to the principles of ALARA. Comparison: Head CT 11/13/2018. Findings: The paranasal sinuses and mastoid air cells are clear. The calvarium and skull base are int act. There is no mass, hematoma, midline shift, acute infarct. White matter hypodensity is nonspecifi c but suggestive of microvascular ischemic change. The ventricles and sulci demonstrate mild age-rela edson involutional changes. Old left basal ganglia infarct, unchanged. Impression: No significant change compared to the prior study. No acute intracranial abnormality. Old left basal ganglia infarct. Electronically signed by: Javon Suarez M.D. 12/25/2018 9:39 PM
[2018-12-25 21:47] LABS: Basophils # (auto) 0.01 K/uL (0-0.2); Basophils % (auto) 0.1 %; Eosinophils # (auto) 0.03 K/uL (0-0.5); Eosinophils % (auto) 0.2 %; Hematocrit (blood only) 42.6 % (42-52); Hemoglobin 14.2 g/dL (14.0-18.0); Immature Granulocytes # (auto) 0.07 K/uL (0.00-0.02); Immature Granulocytes % (auto) 0.6 %; Lymphocytes # (auto) 0.79 K/uL (1.2-3.4); Lymphocytes % (auto) 6.5 %; Mean Corpuscular Hgb Conc 33.3 g/dL (32-36); Mean Platelet Volume 10.3 fL (7.4-10.4); Monocytes # (auto) 0.59 K/uL (0.11-0.59); Monocytes % (auto) 4.9 %; Neutrophils # (auto) 10.59 K/uL (1.4-6.5); Neutrophils % (auto) 87.7 %; Platelet Count 124 K/uL (130-400); RDW Coefficient of Variation 13.6 % (11.5-14.5); RDW Standard Deviation 46.2 fL (36.4-46.3); Red Blood Count 4.58 M/uL (4.7-6.1); White Blood Count 12.08 K/uL (4.8-10.8)
--- NOTE | 2018-12-25 21:51 | CT Scan Report ---
HEAD & NECK CTA HISTORY: right sided weakness TECHNIQUE: Multiaxial CT images of the head were performed following the intravenous administration o f contrast to evaluate the major cerebral vessels. Multiaxial CT images of the neck were also perform ed following the intravenous administration of contrast to evaluate the major cervical vessels. Maxim um intensity projection images were also obtained. A dose lowering technique was utilized adhering to the principles of ALARA. COMPARISON: Head and neck CTA 11/11/2018. FINDINGS: There is no mass, hematoma, midline shift, or acute infarct. 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 Mild calcified plaque within the bilateral carotid siphons. The m ajor dural venous sinuses are widely patent. 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 No significant stenosis or occlusion within the bilateral ACAs, MCAs, or plan consultant. The intracranial internal carotid arteries, vertebral arteries and basilar artery are patent. The aortic arch and proximal great vessels are widely patent. Focal mild stenosis within the origin of the right vertebral artery, unchanged. The left vertebral artery remains patent. Bilateral common carotid arteries are widely patent. Moderate to severe atherosclerotic plaque within the proximal bi lateral internal carotid arteries. This results in 50% stenosis within the proximal left internal car otid artery and 60-70% stenosis within the proximal right internal carotid artery at the origin. This remains unchanged. IMPRESSION: 1. No significant stenosis or occlusion within the [place]. 2. 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 3. Approximately 60-70% stenosis within the proximal right internal carotid artery and 50% stenosis w ithin the proximal left internal carotid artery, unchanged. Electronically signed by: Javon Suarez M.D. 12/25/2018 9:50 PM
--- NOTE | 2018-12-25 21:51 | CT Scan Report ---
HEAD & NECK CTA HISTORY: right sided weakness TECHNIQUE: Multiaxial CT images of the head were performed following the intravenous administration o f contrast to evaluate the major cerebral vessels. Multiaxial CT images of the neck were also perform ed following the intravenous administration of contrast to evaluate the major cervical vessels. Maxim um intensity projection images were also obtained. A dose lowering technique was utilized adhering to the principles of ALARA. COMPARISON: Head and neck CTA 11/11/2018. FINDINGS: There is no mass, hematoma, midline shift, or acute infarct. 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 Mild calcified plaque within the bilateral carotid siphons. The m ajor dural venous sinuses are widely patent. 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 No significant stenosis or occlusion within the bilateral ACAs, MCAs, or certified registered nurse practitioner. The intracranial internal carotid arteries, vertebral arteries and basilar artery are patent. The aortic arch and proximal great vessels are widely patent. Focal mild stenosis within the origin of the right vertebral artery, unchanged. The left vertebral artery remains patent. Bilateral common carotid arteries are widely patent. Moderate to severe atherosclerotic plaque within the proximal bi lateral internal carotid arteries. This results in 50% stenosis within the proximal left internal car otid artery and 60-70% stenosis within the proximal right internal carotid artery at the origin. This remains unchanged. IMPRESSION: 1. No significant stenosis or occlusion within the [place]. 2. 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 3. Approximately 60-70% stenosis within the proximal right internal carotid artery and 50% stenosis w ithin the proximal left internal carotid artery, unchanged. Electronically signed by: Javon Suarez M.D. 12/25/2018 9:50 PM
[2018-12-25 22:03] LABS: BUN Creatinine Ratio 17.6 (10-20); Calcium 8.8 mg/dl (8.5-10.1); Creatinine Clr Calc Pharmacy 52.8 ml/min; Est GFR (Non-African American) 59.6; Magnesium 1.9 mg/dl (1.8-2.4); Potassium 4.1 mmol/L (3.5-5.1)
[2018-12-25 22:07] LABS: Troponin I 0.029 ng/ml (0-0.045)
[2018-12-25 22:15] LABS: INR 1.1 (0.9-1.1); Partial Thromboplastin Ratio 0.9; Partial Thromboplastin Time 24.2 Seconds (21.0-31.0); Prothrombin Time 11.3 Seconds (9.0-12.0)
--- NOTE | 2018-12-25 22:17 | XRay Report ---
XR chest 1V portable HISTORY: Altered mental status. COMPARISON: Chest 11/11/2018. FINDINGS: No pneumothorax. The heart remains mildly enlarged. 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 Prior cholecystectomy. Small left pleural effusion and bibasilar li near densities persist. The upper lung zones are clear. No evidence for pulmonary edema. IMPRESSION: 1. No change compared to the prior study. 2. Small left pleural effusion and bibasilar densities persist. This favors atelectasis. However, pne umonia could also have a similar appearance. Electronically signed by: Javon Suarez M.D. 12/25/2018 10:16 PM
--- NOTE | 2018-12-25 22:49 | Emergency Department Note ---
Entered by Mariam Cole acting as a scribe for History of Present Illness General Chief complaint: Stroke/CVA Symptoms Stated complaint: Stroke alert Source: family and EMS Mode of arrival: EMS Limitations: no limitations History of Present Illness Provider complaint: Stroke Onset (ago): unknown (last known well time was x8.5 hours ago) Location: head Severity: moderate Associated symptoms: + fever/chills Patient is a 78 year old male presenting to the ED with potential stroke. Per EMS, patient went to bed at approximately 13:00 today noting the left the house. They share that the later called the patient at 1800, noting that his speech was slurred. At 18:30, returned home and noticed that patient had right sided facial droop. Per EMS, patient did have a stroke a few years back and suffered from mild right sided facial droop and right sided weakness. Todays facial droop and right sided weakness is worse than normal. shares patient is normally able to smile, but is not today. EMS shares patient does have a fever and diarrhea beginning yesterday. Patient states that he is having diffuse body aches associated with his fever/chills. Patient is on Plavix. He has a hx of triple bypass, pacemaker and HTN. Home Medications Home Medications Medication Instructions Recorded Confirmed Type aspirin [Aspir-Low] 81 mg PO HS 09/07/18 11/11/18 History calcium polycarbophil [Fiber-Tabs] 1 tab PO QAM 09/07/18 11/11/18 History carvedilol [Coreg] 18.75 mg PO BIDM 09/07/18 11/11/18 History clopidogrel [Plavix] 75 mg PO HS 09/07/18 11/11/18 History dicyclomine 20 mg PO Q6 PRN 09/07/18 11/11/18 History diphenhydramine HCl [Benadryl] 50 mg PO DIRECTED PRN 09/07/18 11/11/18 History furosemide [Lasix] 10 mg PO QAM 09/07/18 11/11/18 History levetiracetam [Keppra XR] 1,000 mg PO HS 09/07/18 11/11/18 History losartan [Cozaar] 100 mg PO QAM 09/07/18 11/11/18 History multivitamin 1 tab PO QDD 09/07/18 11/11/18 History nitroglycerin [Nitrostat] 0.4 mg SUBLINGUAL UD PRN 09/07/18 11/11/18 History oxycodone [Roxicodone] 5 mg PO Q6 PRN 09/07/18 11/11/18 History potassium chloride [Klor-Con 10] 10 meq PO QDD 09/07/18 11/11/18 History sertraline [Zoloft] 50 mg PO QDL 09/07/18 11/11/18 History magnesium 200 mg PO DAILY PRN 11/11/18 11/11/18 History hydralazine 12.5 mg PO TIDM #0 tab 11/14/18 11/11/18 Rx rosuvastatin 5 mg PO DAILY 11/14/18 11/14/18 History Allergies Allergy/AdvReac Type Severity Reaction Status Date / Time tramadol Allergy Severe seizures Verified 11/11/18 21:04 iodine Allergy Intermediate airway Verified 12/25/18 22:50 edema oxycodone Allergy Unknown "itchiness Verified 11/11/18 21:04 all over" felodipine AdvReac Mild cough Verified 11/11/18 21:04 ANCELMO Inhibitors AdvReac Unknown COUGHING Verified 11/11/18 21:04 codeine AdvReac Unknown hallucinations, Verified 11/11/18 21:04 depression Past Med/Surg History Medical History Stroke Left bundle branch block (Chronic) Dyslipidemia (Chronic) Carotid disease, bilateral (Chronic) "asymptomatic" Diabetes mellitus, type II (Chronic) Benign prostatic hyperplasia (Chronic) Hypertension (Chronic) History of skin cancer (Chronic) Malignant neoplasm of rectum (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/15) "Rectal bleeding Status post colonoscopy and biopsy 04/02/2015 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 Status post endoscopic ultrasound stage [id number] Neoadjuvant radiation and chemotherapy Chemotherapy comprised of Xeloda Status post completion of radiation therapy 06/24/2015 received 5460 cGy Status post rectosigmoid resection 08/27/2015 ypT2 ypN0 M0 Status post ileostomy closure 04/14/2016, gait by small bowel obstruction and then hemorrhage Status post CVA and then slow wound healing" On 01/20/16 16:12 Celeste Burrell wrote "Rectal bleeding Status post colonoscopy and biopsy 04/02/2015 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 Status post endoscopic ultrasound stage [id number] Neoadjuvant radiation and chemotherapy Chemotherapy comprised of Xeloda Status post completion of radiation therapy 06/24/2015 received 5460 cGy Status post rectosigmoid resection 08/27/2015 ypT2 ypN0 M0" On 07/02/15 10:41 Celeste Burrell wrote "Rectal bleeding Status post colonoscopy and biopsy 04/02/2015 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 Stephens [facility] [place] 2001 DIAZ-LAD, SVG left circumflex" Status post cardiac pacemaker procedure (Chronic) "initial 2005, generator change 2011" Status post cholecystectomy (Chronic) Status post tonsillectomy (Chronic) Status post shoulder surgery (Chronic) S/P colon resection (Chronic) H/O ileostomy (Chronic) Family History Other Family history non-contributory Social History Current Living Situation: Spouse Feels Safe at Home: Yes Smoking Status: Never smoker Hx Alcohol Use: No Hx Substance Use: No Beliefs That Will Affect Care: None Preferred Language: Danish Review of Systems See HPI for pertinent positives & negatives. Unobtainable due to cognitive status Physical Exam Vital Signs Vital Signs - 24 hr 12/25/18 21:15 12/25/18 22:02 Temperature 37.2 C Temperature Source Oral Sepsis Recent Fever Within 48 Hours Yes Sepsis New/Unexplained Change in Mental Status No Sepsis Action Taken by Nursing No Action Required Pulse Rate 84 Pulse Rate [Apical] 83 Pulse Rhythm Regular Pulse Rhythm [Apical] Regular Pulse Strength Normal Pulse Strength [Apical] Normal Respiratory Rate 22 22 Respiratory Effort / Characteristics Non-Labored Spontaneous Non-Labored Spontaneous Respiratory Depth Normal Normal Respiratory Pattern Regular Regular Blood Pressure 171/77 H Blood Pressure [Right Arm] 147/72 H Blood Pressure Mean 108 Blood Pressure Mean [Right Arm] 97 Blood Pressure Position Sitting Blood Pressure Position [Right Arm] Sitting Pulse Oximetry 94 93 Oxygen Delivery Method Room Air Room Air GENERAL: Awake, alert, in no distress, somewhat slow to respond HENT: Normocephalic, atraumatic. Oropharynx unremarkable. PERRL. No deviation EYES: Normal conjunctiva. Sclera non-icteric. NECK: Supple. No nuchal rigidity. RESPIRATORY: Clear to auscultation. No wheezes. Normal respiratory effort. CARDIAC: Normal rate. Normal rhythm. Extremities warm and well perfused. GI: Soft, non-distended. No tenderness to palpation. No rebound or guarding. RECTAL: Deferred. MUSCULOSKELETAL: Atraumatic. Chest examination reveals no tenderness. Left upper chest pacemaker. LOWER EXTREMITIES: Trace pedal edema NEURO: Minimal slurred speech, no aphasia, 4/5 strength diffusely in all extremities but 3/5 strength in right lower extremity. Answers questions but slower to respond SKIN: Warm and dry. No jaundice noted. Course 2122: Patient was taken to CT Past medical records reviewed with EMS. Complete history and physical examination were performed. 2131: Brought into patient room, A1 2138: Discussed case with patients . 2300: Discussed with Dr. Bran for admission. Evening ASA, Plavix, and Keppra ordered. Administered Medications Ioversol (Optiray 320 125ml) 119 ml IV ONCE PRN PRN Reason: Interaction Checking Stop: 12/29/18 21:34 Last Admin: 12/25/18 21:35 Dose: 119 ml Discontinued Medications Sodium Chloride (Nss 1000ml) 500 mls @ 999 mls/hr IV .Q31M ONE Stop: 12/25/18 22:07 Last Admin: 12/25/18 22:11 Dose: 999 mls/hr Medical Decision Making Differential Diagnosis Differential diagnosis: Etiologies such as metabolic, infection, hypo/hyperglycemia, electrolyte abnormalities, cardiac sources, intracerebral event, toxicologic, neurologic, as well as others were entertained. Medical Records Attestation: I reviewed the patient's medical records. Home Medications Current Medication List: was personally reviewed by me Laboratory Data Attestation: I reviewed the patient's lab results. Result diagrams: 12/25/18 21:00 12/25/18 21:00 Lab Results 12/25/18 12/25/18 12/25/18 Range/Units 21:00 21:00 21:00 WBC 12.08 H (4.8-10.8) K/uL RBC 4.58 L (4.7-6.1) M/uL Hgb 14.2 (14.0-18.0) g/dL Hct 42.6 (42-52) % MCV 93.0 (80-100) fL MCH 31.0 (25-34) pg MCHC 33.3 (32-36) g/dL RDW Std Deviation 46.2 (36.4-46.3) fL RDW Coeff of Arabella 13.6 (11.5-14.5) % Plt Count 124 L (130-400) K/uL MPV 10.3 (7.4-10.4) fL Immature Gran % (Auto) 0.6 % Neut % (Auto) 87.7 % Lymph % (Auto) 6.5 % Hamilton % (Auto) 4.9 % Eos % (Auto) 0.2 % Baso % (Auto) 0.1 % Immature Gran # (Auto) 0.07 H (0.00-0.02) K/uL Neut # (Auto) 10.59 H (1.4-6.5) K/uL Lymph # (Auto) 0.79 L (1.2-3.4) K/uL Hamilton # (Auto) 0.59 (0.11-0.59) K/uL Eos # (Auto) 0.03 (0-0.5) K/uL Baso # (Auto) 0.01 (0-0.2) K/uL PT 11.3 (9.0-12.0) Seconds INR 1.1 (0.9-1.1) APTT 24.2 (21.0-31.0) Seconds PTT Ratio 0.9 Sodium 139 (136-145) mmol/L Potassium 4.1 (3.5-5.1) mmol/L Chloride 106 (98-107) mmol/L Carbon Dioxide 29 (21-32) mmol/L Anion Gap 5.0 (3-11) BUN 20 H (7-18) mg/dl Creatinine 1.16 (0.6-1.4) mg/dl Est Cr Clr Drug Dosing 52.8 ml/min Est GFR ( Amer) 69.0 Est GFR (Non-Af Amer) 59.6 BUN/Creatinine Ratio 17.6 (10-20) Glucose 241 H (70-99) mg/dl POC Glucose (70-99) Lactate (0.4-2.0) mmol/L Calcium 8.8 (8.5-10.1) mg/dl Magnesium 1.9 (1.8-2.4) mg/dl Troponin I 0.029 (0-0.045) ng/ml Urine Color Urine Appearance (Clear) Urine pH (4.5-7.5) Ur Specific Dav[place] (1.000-1.030) Urine Protein (Negative) Urine Glucose (UA) (Negative) Urine Ketones (Negative) Urine Blood (Negative) Urine Nitrite (Negative) Urine Bilirubin (Negative) Urine Urobilinogen (Negative) Ur Leukocyte Esterase (Negative) Urine WBC (Auto) (0-5) /hpf Urine RBC (Auto) (0-4) /hpf U Hyaline Cast (Auto) (0-5) /lpf U Epithel Cells (Auto) (0-5) /lpf Urine Bacteria (Auto) (Negative) Influenza Type A (PCR) (Neg) Influenza Type B (PCR) (Neg) Blood Type Antibody Screen 12/25/18 12/25/18 12/25/18 Range/Units 21:41 21:44 21:44 WBC (4.8-10.8) K/uL RBC (4.7-6.1) M/uL Hgb (14.0-18.0) g/dL Hct (42-52) % MCV (80-100) fL MCH (25-34) pg MCHC (32-36) g/dL RDW Std Deviation (36.4-46.3) fL RDW Coeff of Arabella (11.5-14.5) % Plt Count (130-400) K/uL MPV (7.4-10.4) fL Immature Gran % (Auto) % Neut % (Auto) % Lymph % (Auto) % Hamilton % (Auto) % Eos % (Auto) % Baso % (Auto) % Immature Gran # (Auto) (0.00-0.02) K/uL Neut # (Auto) (1.4-6.5) K/uL Lymph # (Auto) (1.2-3.4) K/uL Hamilton # (Auto) (0.11-0.59) K/uL Eos # (Auto) (0-0.5) K/uL Baso # (Auto) (0-0.2) K/uL PT (9.0-12.0) Seconds INR (0.9-1.1) APTT (21.0-31.0) Seconds PTT Ratio Sodium (136-145) mmol/L Potassium (3.5-5.1) mmol/L Chloride (98-107) mmol/L Carbon Dioxide (21-32) mmol/L Anion Gap (3-11) BUN (7-18) mg/dl Creatinine (0.6-1.4) mg/dl Est Cr Clr Drug Dosing ml/min Est GFR ( Amer) Est GFR (Non-Af Amer) BUN/Creatinine Ratio (10-20) Glucose (70-99) mg/dl POC Glucose 240 H (70-99) Lactate 1.7 (0.4-2.0) mmol/L Calcium (8.5-10.1) mg/dl Magnesium (1.8-2.4) mg/dl Troponin I (0-0.045) ng/ml Urine Color Urine Appearance (Clear) Urine pH (4.5-7.5) Ur Specific Dav[place] (1.000-1.030) Urine Protein (Negative) Urine Glucose (UA) (Negative) Urine Ketones (Negative) Urine Blood (Negative) Urine Nitrite (Negative) Urine Bilirubin (Negative) Urine Urobilinogen (Negative) Ur Leukocyte Esterase (Negative) Urine WBC (Auto) (0-5) /hpf Urine RBC (Auto) (0-4) /hpf U Hyaline Cast (Auto) (0-5) /lpf U Epithel Cells (Auto) (0-5) /lpf Urine Bacteria (Auto) (Negative) Influenza Type A (PCR) (Neg) Influenza Type B (PCR) (Neg) Blood Type O Positive Antibody Screen NEGATIVE 12/25/18 12/25/18 Range/Units 22:10 22:15 WBC (4.8-10.8) K/uL RBC (4.7-6.1) M/uL Hgb (14.0-18.0) g/dL Hct (42-52) % MCV (80-100) fL MCH (25-34) pg MCHC (32-36) g/dL RDW Std Deviation (36.4-46.3) fL RDW Coeff of Arabella (11.5-14.5) % Plt Count (130-400) K/uL MPV (7.4-10.4) fL Immature Gran % (Auto) % Neut % (Auto) % Lymph % (Auto) % Hamilton % (Auto) % Eos % (Auto) % Baso % (Auto) % Immature Gran # (Auto) (0.00-0.02) K/uL Neut # (Auto) (1.4-6.5) K/uL Lymph # (Auto) (1.2-3.4) K/uL Hamilton # (Auto) (0.11-0.59) K/uL Eos # (Auto) (0-0.5) K/uL Baso # (Auto) (0-0.2) K/uL PT (9.0-12.0) Seconds INR (0.9-1.1) APTT (21.0-31.0) Seconds PTT Ratio Sodium (136-145) mmol/L Potassium (3.5-5.1) mmol/L Chloride (98-107) mmol/L Carbon Dioxide (21-32) mmol/L Anion Gap (3-11) BUN (7-18) mg/dl Creatinine (0.6-1.4) mg/dl Est Cr Clr Drug Dosing ml/min Est GFR ( Amer) Est GFR (Non-Af Amer) BUN/Creatinine Ratio (10-20) Glucose (70-99) mg/dl POC Glucose (70-99) Lactate (0.4-2.0) mmol/L Calcium (8.5-10.1) mg/dl Magnesium (1.8-2.4) mg/dl Troponin I (0-0.045) ng/ml Urine Color Yellow Urine Appearance Clear (Clear) Urine pH 5.5 (4.5-7.5) Ur Specific Davilla 1.045 H (1.000-1.030) Urine Protein Trace H (Negative) Urine Glucose (UA) Trace H (Negative) Urine Ketones Negative (Negative) Urine Blood Negative (Negative) Urine Nitrite Negative (Negative) Urine Bilirubin Negative (Negative) Urine Urobilinogen Negative (Negative) Ur Leukocyte Esterase Negative (Negative) Urine WBC (Auto) 1-5 (0-5) /hpf Urine RBC (Auto) 5-10 H (0-4) /hpf U Hyaline Cast (Auto) 1-5 (0-5) /lpf U Epithel Cells (Auto) 5-10 H (0-5) /lpf Urine Bacteria (Auto) Negative (Negative) Influenza Type A (PCR) Neg for Influ A (Neg) Influenza Type B (PCR) Neg for Influ B (Neg) Blood Type Antibody Screen Imaging Data Radiologist's Impression: HEAD & NECK CTA HISTORY: right sided weakness TECHNIQUE: Multiaxial CT images of the head were performed following the intravenous administration of contrast to evaluate the major cerebral vessels. Multiaxial CT images of the neck were also performed following the intravenous administration of contrast to evaluate the major cervical vessels. Maximum intensity projection images were also obtained. A dose lowering technique was utilized adhering to the principles of ALARA. COMPARISON: Head and neck CTA 11/11/2018. FINDINGS: There is no mass, hematoma, midline shift, or acute infarct. 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 Mild calcified plaque within the bilateral carotid siphons. The major dural venous sinuses are widely patent. 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 No significant stenosis or occlusion within the bilateral ACAs, MCAs, or road roller operator. The intracranial internal carotid arteries, vertebral arteries and basilar artery are patent. The aortic arch and proximal great vessels are widely patent. Focal mild stenosis within the origin of the right vertebral artery, unchanged. The left vertebral artery remains patent. Bilateral common carotid arteries are widely patent. Moderate to severe atherosclerotic plaque within the proximal bilateral internal carotid arteries. This results in 50% stenosis within the proximal left internal carotid artery and 60-70% stenosis within the proximal right internal carotid artery at the origin. This remains unchanged. IMPRESSION: 1. No significant stenosis or occlusion within the [place]. 2. 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 3. Approximately 60-70% stenosis within the proximal right internal carotid artery and 50% stenosis within the proximal left internal carotid artery, unchanged. Electronically signed by: Javon Suarez M.D. 12/25/2018 9:50 PM HEAD & NECK CTA HISTORY: right sided weakness TECHNIQUE: Multiaxial CT images of the head were performed following the intravenous administration of contrast to evaluate the major cerebral vessels. Multiaxial CT images of the neck were also performed following the intravenous administration of contrast to evaluate the major cervical vessels. Maximum intensity projection images were also obtained. A dose lowering technique was utilized adhering to the principles of ALARA. COMPARISON: Head and neck CTA 11/11/2018. FINDINGS: There is no mass, hematoma, midline shift, or acute infarct. 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 Mild calcified plaque within the bilateral carotid siphons. The major dural venous sinuses are widely patent. 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 No significant stenosis or occlusion within the bilateral ACAs, MCAs, or road roller operator. The intracranial internal carotid arteries, vertebral arteries and basilar artery are patent. The aortic arch and proximal great vessels are widely patent. Focal mild stenosis within the origin of the right vertebral artery, unchanged. The left vertebral artery remains patent. Bilateral common carotid arteries are widely patent. Moderate to severe atherosclerotic plaque within the proximal bilateral internal carotid arteries. This results in 50% stenosis within the proximal left internal carotid artery and 60-70% stenosis within the proximal right internal carotid artery at the origin. This remains unchanged. IMPRESSION: 1. No significant stenosis or occlusion within the [place]. 2. 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 3. Approximately 60-70% stenosis within the proximal right internal carotid artery and 50% stenosis within the proximal left internal carotid artery, unchanged. Electronically signed by: Javon Suarez M.D. 12/25/2018 9:[address] CT DOSE: HISTORY: Stroke evaluation TECHNIQUE: Multiaxial CT images of the head were performed without the use of intravenous contrast. Automated exposure control was utilized for this study. A dose lowering technique was utilized adhering to the principles of ALARA. Comparison: Head CT 11/13/2018. Findings: The paranasal sinuses and mastoid air cells are clear. The calvarium and skull base are intact. There is no mass, hematoma, midline shift, acute infarct. White matter hypodensity is nonspecific but suggestive of microvascular ischemic change. The ventricles and sulci demonstrate mild age- related involutional changes. Old left basal ganglia infarct, unchanged. Impression: No significant change compared to the prior study. No acute intracranial abnormality. Old left basal ganglia infarct. Electronically signed by: Javon Suarez M.D. 12/25/2018 9:39 PM R chest 1V portable HISTORY: Altered mental status. COMPARISON: Chest 11/11/2018. FINDINGS: No pneumothorax. The heart remains mildly enlarged. There are poststernotomy changes and left-sided pacemaker/defibrillator. Prior cholecystectomy. Small left pleural effusion and bibasilar linear densities persist. The upper lung zones are clear. No evidence for pulmonary edema. IMPRESSION: 1. No change compared to the prior study. 2. Small left pleural effusion and bibasilar densities persist. This favors atelectasis. However, pneumonia could also have a similar appearance. Electronically signed by: Javon Suarez M.D. 12/25/2018 10:16 PM ECG Data Attestation: I personally reviewed and interpreted this ECG as follows: Indication: weakness Rate (beats per minute): 86 Rhythm: other (atrial-sensed ventricular paced) Findings: + nonspecific-ST abn; no PVC Comparison ECG Date: from (11/13/18) Change: no significant change Blood Pressure Blood Pressure Findings: Elevated blood pressure Blood Pressure Disposition: elevated BP felt to be situational MDM Narrative Gentleman with a significant history including prior stroke on Plavix coming in last seen well at 1 PM with some slurred speech and worsening right-sided weakness according to . Slight increase in right-sided deficits and a right facial droop is noted. CT the head did not show any acute bleed. Stable aneurysm and vasculature of the head on angiograms completed here. Was a stroke alert. No TPA indication due to timing and last known well exceeding 4-1 /2 hours. No seizures reported. Reported fever in route although afebrile on my exam here. To do infectious workup and metabolic as well. Unsure if this could possibly recommend the recrudescence of symptoms related to his old stroke versus weakness related to get an infectious or metabolic process. No evidence of significant pneumonia or electrolyte abnormality. Doubt meningitis. Kidney function appears somewhat improved. Troponin is detectable but similar to prior values. Leukocytosis of 12 is noted unsure of exact etiology. Electrolytes do not appear significantly altered. states he is improving somewhat but still not back to baseline. Urinalysis and flu studies are pending. Given his increased weakness and neuro deficits do believe the patient requires admission discussed with the [facility] hospitalist for this. Given some fluid rehydration and discussed with . Given his evening dose of Plavix and discussed with pharmacy 1000 of the immediate release Keppra as we do not extend relief. Given 324mg of PO aspirin. Impression & Plan Weakness, Slurred speech Discharge Plan Visit Data Chief Complaint: Stroke/CVA Symptoms Stated Complaint: Stroke alert ED Provider: Sarbjit Payton Discharge Problem: Weakness, Slurred speech Forms Stand Alone Forms: My [facility] Prescriptions Prescriptions: No Action magnesium 200 mg Tablet 200 mg PO DAILY PRN (Reason: NEEDED) RF: 0 rosuvastatin 5 mg Tablet 5 mg PO DAILY RF: 0 hydralazine 50 mg tablet 12.5 mg PO TIDM Qty: 0 RF: 0 multivitamin Tablet 1 tab PO QDD RF: 0 furosemide [Lasix] 40 mg tablet 10 mg PO QAM RF: 0 potassium chloride [Klor-Con 10] 10 mEq tablet extended release 10 meq PO QDD RF: 0 clopidogrel [Plavix] 75 mg tablet 75 mg PO HS RF: 0 aspirin [Aspir-Low] 81 mg Tablet,Delayed Release (Dr/Ec) 81 mg PO HS RF: 0 dicyclomine 20 mg tablet 20 mg PO Q6 PRN (Reason: Abdominal Discomfort) RF: 0 diphenhydramine HCl [Benadryl] 25 mg Capsule 50 mg PO DIRECTED PRN (Reason: TAKE WITH OXYCODONE-ITCHINESS) RF: 0 calcium polycarbophil [Fiber-Tabs] 625 mg Tablet 1 tab PO QAM RF: 0 nitroglycerin [Nitrostat] 0.4 mg tablet, sublingual 0.4 mg Sublingual UD PRN (Reason: Chest Pain) RF: 0 losartan [Cozaar] 100 mg tablet 100 mg PO QAM RF: 0 sertraline [Zoloft] 50 mg tablet 50 mg PO QDL RF: 0 oxycodone [Roxicodone] 5 mg tablet 5 mg PO Q6 PRN (Reason: Pain) RF: 0 carvedilol [Coreg] 12.5 mg tablet 18.75 mg PO BIDM RF: 0 levetiracetam [Keppra XR] 500 mg tablet extended release 24 hr 1,000 mg PO HS RF: 0 The ileana's documentation has been prepared under my direction and personally reviewed by me in its entirety. I confirm that the note above accurately reflects all work, treatment, procedures, and medical decision making performed by me.
[2018-12-25 23:01] LABS: Appearance Urine Clear (Clear); Bacteria Urine Automated Negative (Negative); Bilirubin Urine Negative (Negative); Blood Urine Negative (Negative); Color Urine Yellow; Glucose Urine UA Trace (Negative); Ketones Urine Negative (Negative); Leukocyte Esterase Urine Negative (Negative); Nitrite Urine Negative (Negative); Protein Urine Trace (Negative); Specific Gravity Urine 1.045 (1.000-1.030); Urobilinogen Urine Negative (Negative); pH Urine 5.5 (4.5-7.5)
[2018-12-25 23:05] LABS: Influenza A virus by PCR Neg for Influ A (Neg); Influenza B virus by PCR Neg for Influ B (Neg)
[2018-12-25] MEDS ORDERED: levETIRAcetam 500 MG TAB PO ONE (23:08)
[2018-12-25] MEDS ORDERED: ASPIRIN CHEW 324 MG PO STA (23:09)
[2018-12-25] MEDS ORDERED: CLOPIDOGREL BISULFATE 75 MG TAB PO ONE (23:09)
[2018-12-26] MEDS ORDERED: INSULIN ASPART 100 UNITS/ML 3 ML PEN SC SCH (01:41)
[2018-12-26] MEDS ORDERED: DEXTROSE 50% 50 ML SYRINGE IV PRN (01:41)
[2018-12-26] MEDS ORDERED: GLUCOSE 10 TABS/TUBE PO PRN (01:41)
[2018-12-26] MEDS ORDERED: GLUCAGON FOR INJ 1 MG VIAL SQ PRN (01:41)
[2018-12-26] MEDS ORDERED: OXYCODONE HCL IR 5 MG TAB (IMMEDIATE RELEASE) PO PRN (01:41)
[2018-12-26] MEDS ORDERED: INSULIN GLARGINE SOLOSTAR 100 UNITS/ML 3 ML PEN SC STA (01:41)
[2018-12-26] MEDS ORDERED: MAGNESIUM SULFATE / D5W 1 GM/100 ML BAG IV ONE (01:41)
[2018-12-26] MEDS ORDERED: GLUCOSE 40% GEL 15 GM TUBE PO PRN (01:41)
[2018-12-26] MEDS ORDERED: CARBOHYDRATES FOR HYPOGLYCEMIA PO PRN (01:41)
[2018-12-26] MEDS ORDERED: PROCHLORPERAZINE 5 MG in SYRINGE 4 ML IV PRN (01:41)
[2018-12-26] MEDS ORDERED: PHARMACIST DISCHARGE MED REC CONSULT PRN (01:41)
[2018-12-26] MEDS ORDERED: OXYCODONE/ACETAMINOPHEN 5mg/325mg TAB PO PRN (01:41)
[2018-12-26] MEDS ORDERED: ACETAMINOPHEN 325 MG TAB PO PRN (01:41)
[2018-12-26] MEDS ORDERED: SODIUM CHLORIDE 0.9% 1000ML 1,000 ML IV STA (01:41)
[2018-12-26] MEDS ORDERED: Nursing to Pharmacy Communication ONE ×2 (03:38→14:48)
[2018-12-26] MEDS: INSULIN ASPART 100 UNITS/ML 3 ML PEN SC SCH ×4 (06:07→20:45)
[2018-12-26 07:18] LABS: Basophils # (auto) 0.01 K/uL (0-0.2); Basophils % (auto) 0.1 %; Eosinophils # (auto) 0.03 K/uL (0-0.5); Eosinophils % (auto) 0.4 %; Hematocrit (blood only) 38.1 % (42-52); Hemoglobin 12.8 g/dL (14.0-18.0); Immature Granulocytes # (auto) 0.04 K/uL (0.00-0.02); Immature Granulocytes % (auto) 0.5 %; Lymphocytes # (auto) 1.56 K/uL (1.2-3.4); Lymphocytes % (auto) 19.3 %; Mean Corpuscular Hgb Conc 33.6 g/dL (32-36); Mean Corpuscular Volume 93.8 fL (80-100); Monocytes # (auto) 0.57 K/uL (0.11-0.59); Monocytes % (auto) 7.1 %; Neutrophils # (auto) 5.86 K/uL (1.4-6.5); Neutrophils % (auto) 72.6 %; Platelet Count 107 K/uL (130-400); RDW Coefficient of Variation 13.8 % (11.5-14.5); RDW Standard Deviation 47.1 fL (36.4-46.3); Red Blood Count 4.06 M/uL (4.7-6.1); White Blood Count 8.07 K/uL (4.8-10.8)
[2018-12-26 07:47] LABS: Albumin Level 3.1 gm/dl (3.4-5.0); BUN Creatinine Ratio 17.5 (10-20); Bilirubin Direct 0.2 mg/dl (0-0.2); Calcium 8.5 mg/dl (8.5-10.1); Est GFR (Non-African American) 62.1; Potassium 4.1 mmol/L (3.5-5.1)
[2018-12-26 07:49] LABS: Bilirubin,Total 0.6 mg/dl (0.2-1); Total Protein 6.6 gm/dl (6.4-8.2)
[2018-12-26] MEDS ORDERED: KEPPRA XR~ORDER AWAITING ACTION SCH (08:00)
--- NOTE | 2018-12-26 11:30 | Hospitalist Progress Note ---
Date of Service December 26, 2018 Assessment & Plan (1) Stroke: History of a CVA with new onset stroke symptoms yesterday including inability to sit up correctly, worsening slurred speech, worsening right leg weakness, inability to follow instructions, different than baseline. Head CT revealed an old left basal ganglia infarct with no new area of concern. 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 Patient has a pacemaker, but this may be MRI friendly. Defer further workup with MRI to neurology who will see him later today. Speech, PT/OT evaluations. Diet ordered per speech pathologist with recommendations. Will DC IV fluids at this time. Of note, diarrhea and fever noted to be present in earlier notes, however, per and patient there is no fever present and the patient has alternating diarrhea and constipation since his rectal surgery which has not changed recently. Per he actually took an [id number] Dulcolax yesterday. GI illness is not of concern at this time. Hold losartan and hydralazine in setting of possible acute stroke for permissive hypertension. Continue Coreg in setting of chronic heart failure. (2) Diabetes mellitus, type II: At inpatient goal, continue glargine and insulin sliding scale per protocol. (3) Status post coronary artery bypass grafting: Plavix, Crestor, aspirin, Coreg (4) Status post cardiac pacemaker procedure: (5) Chronic systolic CHF (congestive heart failure), NYHA class 3: Compensated, euvolemic. No issues with diarrhea, clarified with and patient. We will continue Lasix and potassium supplementation along with other home medications. (6) Seizure disorder: Keppra XR not on formulary. Will give patient Keppra 500 mg IR twice daily with first dose now. This was discussed with neurology. (7) Thrombocytopenia: Normal levels in 2017. Currently stable but low. We will need to review record and initiate workup if needed. Currently no bleeding. (8) DVT prophylaxis: SCDs are E: Thrombocytopenia Full code Dispo-continue hospitalization pending PT/OT eval's and tracks Ruchi Cano DO [facility] Hospitalist Subjective 78-year-old man with history of left basal ganglia infarct presented with new onset strokelike symptoms yesterday. Per he went to sleep around 1 p.m. and she woke him up around 6 PM for dinner. She noted that he was demonstrating slurred speech and was not very loud and his speech. She noticed he was trying to sit up in bed by performing an abdominal crunch instead of rolling to the left side as he typically would. She noted he would not follow instruction to do this and rolled to the left side. She eventually got him up on his feet and noted the speech continued to be slurred, which is an issue from his initial stroke. She noted that he typically walks with a walker and can climb 12-13 stairs however, he was dragging his right leg which really would not move. She can only get him to move a couple of steps. She sat up in a chair and scooted the chair into the living room before EMS got there. She noted home blood pressure of 180/100. Importantly she noted he was falling to the right side and could not sit up on his own. Despite all this he did eat some pizza that she made. She also noted incidentally he was incontinent of urine which is typically not the case. Regarding reports of diarrhea, the patient denies any changes from his typical alternating constipation diarrhea secondary to his rectal surgery in the past. Per he took an [id number] Dulcolax yesterday. Per the report of fever, the states the patient has "felt hot and cold over the last 2 days"evidently not able to get comfortable. The patient denies any fevers or chills. Physical Exam 2 Vital Signs (Past 24 Hours): Last Vital Signs Temp 36.6 C 12/26/18 06:47 Pulse 60 12/26/18 06:47 Resp 18 12/26/18 06:47 BP 143/71 H 12/26/18 06:47 Pulse Ox 96 12/26/18 06:47 CONSTITUTIONAL: WNWD, vitals as above, generally well-appearing EYES: EOMI bilaterally, PERRL, normal conjuctivae, no scleral icterus ENT: MMM NECK: trachea midline RESPIRATORY: clear to auscultation bilaterally, no crackles, rales or wheezes, normal respiratory effort CARDIOVASCULAR: regular rate and rhythm, S1 and 2 heard without murmurs, gallops or rubs, no JVD, no peripheral edema GASTROINTESTINAL: normal bowel sounds, soft, nontender, no hepatomegaly, no guarding, multiple well-healed scars MUSCULOSKELETAL: strength 5/5 throughout, pick pulling machine tender strength intact bilaterally with slight weakness in R hand. head is normocephalic and atraumatic SKIN: warm and dry, no rashes NEUROLOGIC: PERRL, EOMI, no facial palsy-smile is symmetric, no dysarthria and oriented to person , place and time but tends to fixate on h/o CRC and bowels and retells same story again and again regarding medical history. R hemianesthesia. Some word finding difficulty noted but he was successful with time. PSYCHIATRIC: alert cooperative and oriented to person, place and time. Results & Data Laboratory Results Short CBC 12/25/18 12/26/18 Range/Units 21:00 06:31 WBC 12.08 H 8.07 (4.8-10.8) K/uL Hgb 14.2 12.8 L (14.0-18.0) g/dL Hct 42.6 38.1 L (42-52) % Plt Count 124 L 107 L (130-400) K/uL BMP 12/25/18 12/26/18 21:00 06:31 Sodium 139 143 Potassium 4.1 4.1 Chloride 106 110 H Carbon Dioxide 29 29 BUN 20 H 20 H Creatinine 1.16 1.12 Glucose 241 H 127 H Calcium 8.8 8.5 Cardiac Enzymes 12/25/18 Range/Units 21:00 Troponin I 0.029 (0-0.045) ng/ml Liver Function 12/26/18 Range/Units 06:31 Total Bilirubin 0.6 (0.2-1) mg/dl Direct Bilirubin 0.2 (0-0.2) mg/dl AST 29 (15-37) U/L ALT 44 (12-78) U/L Alkaline Phosphatase 114 (45-117) U/L Albumin 3.1 L (3.4-5.0) gm/dl Urine 12/25/18 Range/Units 22:10 Urine Color Yellow Urine Appearance Clear (Clear) Urine pH 5.5 (4.5-7.5) Ur Specific [place] 1.045 H (1.000-1.030) Urine Protein Trace H (Negative) Urine Glucose (UA) Trace H (Negative) Medications Administered Current Inpatient Medications Acetaminophen (Tylenol) 650 mg PO Q4H PRN PRN Reason: Pain or Fever Stop: 01/25/19 01:40 Aspirin (Ecotrin Ectab) 81 mg PO HS [facility] Stop: 01/25/19 20:59 Carvedilol (Coreg) 18.75 mg PO BIDM [facility] Stop: 01/25/19 16:59 Clopidogrel Bisulfate (Plavix) 75 mg PO HS [facility] Stop: 01/25/19 20:59 Dextrose (Dextrose 50%) 25 - 50 ml IV UD PRN; Protocol PRN Reason: Hypoglycemia Protocol Stop: 01/25/19 01:40 Furosemide (Lasix) 10 mg PO QAM HETAL Stop: 01/26/19 08:59 Glucagon (Glucagen) 1 mg SQ UD PRN; Protocol PRN Reason: Hypoglycemia Protocol Stop: 01/25/19 01:40 Glucose (Glucose 40%) 15 - 30 gm PO UD PRN; Protocol PRN Reason: Hypoglycemia Protocol Stop: 01/25/19 01:40 Glucose (Dex4 Glucose) 4 - 8 tabs PO UD PRN; Protocol PRN Reason: Hypoglycemia Protocol Stop: 01/25/19 01:40 Sodium Chloride (Nss 1000ml) 1,000 mls @ 60 mls/hr IV .[id number] STA Stop: 12/26/18 18:20 Last Infusion: 12/26/18 06:31 Dose: 60 mls/hr Prochlorperazine 5 mg/ Syringe 5 mls @ 5 mls/min IV Q6H PRN PRN Reason: Nausea And Vomiting Stop: 01/25/19 01:40 Insulin Aspart (Novolog Flexpen) 0 units SC Q6 HETAL Stop: 01/25/19 05:59 Last Admin: 12/26/18 06:07 Dose: Not Given Insulin Glargine (Lantus Solostar Pen) 5 units SC DAILY [facility] Stop: 01/26/19 08:59 Levetiracetam (Keppra) 500 mg PO BID [facility] Stop: 01/25/19 11:44 Miscellaneous (Carbohydrates For Hypoglycemia) 15 - 30 gm PO UD PRN PRN Reason: Hypoglycemia Treatment Stop: 01/25/19 01:40 Miscellaneous Information (Pharmacist Discharge Med Rec Consult) 1 ea N/A UD PRN PRN Reason: Consult Stop: 01/25/19 01:40 Multivitamins (Multivitamin Tab) 1 tab PO QDD [facility] Stop: 01/25/19 16:29 Oxycodone HCl (Roxicodone Immediate Rel) 5 mg PO Q6 PRN PRN Reason: Pain Stop: 01/09/19 01:40 Oxycodone/Acetaminophen (Percocet 5mg/325mg) 1 tab PO Q4H PRN PRN Reason: Pain Stop: 01/09/19 01:40 Potassium Chloride (Klor-Con M10) 10 meq PO QDD [facility] Stop: 01/26/19 16:29 Rosuvastatin Calcium (Crestor) 5 mg PO DAILY [facility] Stop: 01/25/19 08:59 Sertraline HCl (Zoloft) 50 mg PO QDL [facility] Stop: 01/25/19 11:29
[2018-12-26] MEDS: ROSUVASTATIN CALCIUM 5 MG TAB PO SCH (12:14)
[2018-12-26] MEDS: SERTRALINE HCL 50 MG TABLET PO SCH (12:35)
--- NOTE | 2018-12-26 13:17 | Neurology Consultation ---
Date of Consultation December 26, 2018 Assessment & Plan (1) Generalized weakness: 1. CT head - no new findings- repeated and stable- pacemaker is not compatible with MRI but no real evidence of new event on exam 2. CXR- possible pneumonia 3. previous stroke -likely no new event likely a febrile infection which cause some generalized weakness which increased appears of old stroke 4. PT/OT - for discharge needs 5. continue Plavix 75 mg and aspirin 81 mg 6. primary team to r/o infectious process will continue to follow with you I know Mr. Quan from prior outpatient visits and hospital consultations, have reviewed his case and history, done examination with him in in conjunction with Vernell Reich PA-C and have reviewed his imaging studies which include a CAT scan on admission and a repeat CAT scan today neither which has shown any evidence for a new area of cerebral infarction His examination today appears to be his baseline as far as I am concerned. He has a mild right hemiparesis, mixed aphasia, and a very depressed affect all of which are unchanged from outpatient visits. 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 He was febrile on admission and has a chest x-ray that suspicious for pneumonitis. From a neurologic point of view of suggest no further investigations. We will pay him one more visit tomorrow review the outstanding studies it may be available that and then continue to follow him on an outpatient basis as we have in the past. Petr Lopez MD History of Present Illness Reason for Consultation: TIA Requesting Physician: Ruchi Cano DO Attending Physician: Ruchi Cano DO History of Present Illness Angelo is a 78 year old male presenting to the ED with potential stroke. He had an event of slurred speech and right sided facial droop. He had a stroke a few years back and suffered from mild right sided facial droop and right sided weakness. But his felt the facial droop and right sided weakness is worse than normal. Accord to EMS noted he had a fever and diarrhea beginning yesterday. He states that he is having diffuse body aches associated with his fever/chills. He has a hx of triple bypass, pacemaker and HTN. He is very emotional because he has a difficulty expressing how he feels and states he doesn't like living this way. denies CP, SOB, abdominal pain, increased one sided weakness, numbness tingling, N, V, +diarrhea, and fever, chills. Allergies Allergy/AdvReac Type Severity Reaction Status Date / Time tramadol Allergy Severe seizures Verified 12/25/18 23:28 iodine Allergy Intermediate airway Verified 12/25/18 23:28 edema oxycodone Allergy Unknown "itchiness Verified 12/25/18 23:28 all over" felodipine AdvReac Mild cough Verified 12/25/18 23:28 ANCELMO Inhibitors AdvReac Unknown COUGHING Verified 12/25/18 23:28 codeine AdvReac Unknown hallucinations, Verified 12/25/18 23:28 depression Home Medications Home Medications Medication Instructions Recorded Confirmed Type aspirin [Aspir-Low] 81 mg PO HS 09/07/18 12/25/18 History calcium polycarbophil [Fiber-Tabs] 1 tab PO QAM 09/07/18 12/25/18 History carvedilol [Coreg] 18.75 mg PO BIDM 09/07/18 12/25/18 History clopidogrel [Plavix] 75 mg PO HS 09/07/18 12/25/18 History dicyclomine 20 mg PO Q6 PRN 09/07/18 12/25/18 History diphenhydramine HCl [Benadryl] 50 mg PO DIRECTED PRN 09/07/18 12/25/18 History furosemide [Lasix] 10 mg PO QAM 09/07/18 12/25/18 History levetiracetam [Keppra XR] 1,000 mg PO HS 09/07/18 12/25/18 History losartan [Cozaar] 100 mg PO QAM 09/07/18 12/25/18 History multivitamin 1 tab PO QDD 09/07/18 12/25/18 History nitroglycerin [Nitrostat] 0.4 mg SUBLINGUAL UD PRN 09/07/18 12/25/18 History oxycodone [Roxicodone] 5 mg PO Q6 PRN 09/07/18 12/25/18 History potassium chloride [Klor-Con 10] 10 meq PO QDD 09/07/18 12/25/18 History sertraline [Zoloft] 50 mg PO QDL 09/07/18 12/25/18 History magnesium 200 mg PO DAILY PRN 11/11/18 12/25/18 History rosuvastatin 5 mg PO DAILY 11/14/18 12/25/18 History hydralazine 12.5 mg PO TIDM 12/25/18 12/25/18 History Patient History Medical History Stroke Left bundle branch block (Chronic) Dyslipidemia (Chronic) Carotid disease, bilateral (Chronic) "asymptomatic" Diabetes mellitus, type II (Chronic) Benign prostatic hyperplasia (Chronic) Hypertension (Chronic) History of skin cancer (Chronic) Malignant neoplasm of rectum (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/15) "Rectal bleeding Status post colonoscopy and biopsy 04/02/2015 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 Status post endoscopic ultrasound stage [id number] Neoadjuvant radiation and chemotherapy Chemotherapy comprised of Xeloda Status post completion of radiation therapy 06/24/2015 received 5460 cGy Status post rectosigmoid resection 08/27/2015 ypT2 ypN0 M0 Status post ileostomy closure 04/14/2016, gait by small bowel obstruction and then hemorrhage Status post CVA and then slow wound healing" On 01/20/16 16:12 Celeste Burrell wrote "Rectal bleeding Status post colonoscopy and biopsy 04/02/2015 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 Status post endoscopic ultrasound stage [id number] Neoadjuvant radiation and chemotherapy Chemotherapy comprised of Xeloda Status post completion of radiation therapy 06/24/2015 received 5460 cGy Status post rectosigmoid resection 08/27/2015 ypT2 ypN0 M0" On 07/02/15 10:41 Celeste Burrell wrote "Rectal bleeding Status post colonoscopy and biopsy 04/02/2015 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 Stephens [facility] [place] DIAZ-LAD, SVG left circumflex" Status post cardiac pacemaker procedure (Chronic) "initial 2005, generator change 2011" Status post cholecystectomy (Chronic) Status post tonsillectomy (Chronic) Status post shoulder surgery (Chronic) S/P colon resection (Chronic) H/O ileostomy (Chronic) Family History Other Family history non-contributory Social History Current Living Situation: Spouse Other Information That Helps Us Care for You: No Feels Safe at Home: Yes Safety Concerns: Feels Safe At This Time Smoking Status: Never smoker Hx Alcohol Use: No Hx Substance Use: No Beliefs That Will Affect Care: None Preferred Language: Thai Communication Ability: Impaired Communication Ability Comment: Intermittent slurred speech and expressive aphasia from previous CVA [employer] Required: No Physical Exam 2 Vital Signs (Past 24 Hours): Last Vital Signs Temp 36.8 C 12/26/18 12:12 Pulse 59 L 12/26/18 12:12 Resp 18 12/26/18 12:12 BP 160/77 H 12/26/18 12:12 Pulse Ox 95 12/26/18 12:12 Physical Exam: Constitutional: appearance over nourished healthy, depressed Ears, Nose, Mouth and Throat: mucous membranes moist Cardiovascular: normal S-1 and S-2 and regular rate and rhythm Respiratory: course breath sounds and upper lobe wheezing Musculoskeletal: no atrophy Skin: no stigmata of neurocutaneous disease noted and normal and intact Eyes: extraocular muscles intact (EOMI) and pupils equal, round and reactive to light (PERRL) NEUROLOGIC EXAMINATION: Mental status: Alert and interactive Oriented to hospital Oriented to person Speech dysphasia and right sided facial droop Cranial Nerves flattening of nasolabial fold Reflexes: Deep tendon reflexes were symmetrical and graded 2/5. upgoing toes Sensory: light or cool touch Coordination: finger to nose no bi pass Gait/Stance: Posture sitting up in bed Motor: positive right sided weakness Strength: right UE hand certified pediatric nurse practitioner biceps triceps 4/5, right leg hip flex 4/5 left UE hand certified pediatric nurse practitioner biceps triceps 5/5 left leg hip flex 5/5 Results & Data Laboratory Results Abnormal lab results 12/25/18 12/25/18 12/25/18 Range/Units 21:00 21:00 21:41 WBC 12.08 H (4.8-10.8) K/uL RBC 4.58 L (4.7-6.1) M/uL Hgb (14.0-18.0) g/dL Hct (42-52) % RDW Std Deviation (36.4-46.3) fL Plt Count 124 L (130-400) K/uL Immature Gran # (Auto) 0.07 H (0.00-0.02) K/uL Neut # (Auto) 10.59 H (1.4-6.5) K/uL Lymph # (Auto) 0.79 L (1.2-3.4) K/uL Chloride (98-107) mmol/L BUN 20 H (7-18) mg/dl Glucose 241 H (70-99) mg/dl POC Glucose 240 H (70-99) Albumin (3.4-5.0) gm/dl Ur Specific [place] (1.000-1.030) Urine Protein (Negative) Urine Glucose (UA) (Negative) Urine RBC (Auto) (0-4) /hpf U Epithel Cells (Auto) (0-5) /lpf 12/25/18 12/26/18 12/26/18 Range/Units 22:10 02:46 06:00 WBC (4.8-10.8) K/uL RBC (4.7-6.1) M/uL Hgb (14.0-18.0) g/dL Hct (42-52) % RDW Std Deviation (36.4-46.3) fL Plt Count (130-400) K/uL Immature Gran # (Auto) (0.00-0.02) K/uL Neut # (Auto) (1.4-6.5) K/uL Lymph # (Auto) (1.2-3.4) K/uL Chloride (98-107) mmol/L BUN (7-18) mg/dl Glucose (70-99) mg/dl POC Glucose 185 H 128 H (70-99) Albumin (3.4-5.0) gm/dl Ur Specific [place] 1.045 H (1.000-1.030) Urine Protein Trace H (Negative) Urine Glucose (UA) Trace H (Negative) Urine RBC (Auto) 5-10 H (0-4) /hpf U Epithel Cells (Auto) 5-10 H (0-5) /lpf 12/26/18 12/26/18 12/26/18 Range/Units 06:31 06:31 07:37 WBC (4.8-10.8) K/uL RBC 4.06 L (4.7-6.1) M/uL Hgb 12.8 L (14.0-18.0) g/dL Hct 38.1 L (42-52) % RDW Std Deviation 47.1 H (36.4-46.3) fL Plt Count 107 L (130-400) K/uL Immature Gran # (Auto) 0.04 H (0.00-0.02) K/uL Neut # (Auto) (1.4-6.5) K/uL Lymph # (Auto) (1.2-3.4) K/uL Chloride 110 H (98-107) mmol/L BUN 20 H (7-18) mg/dl Glucose 127 H (70-99) mg/dl POC Glucose 132 H (70-99) Albumin 3.1 L (3.4-5.0) gm/dl Ur Specific [place] (1.000-1.030) Urine Protein (Negative) Urine Glucose (UA) (Negative) Urine RBC (Auto) (0-4) /hpf U Epithel Cells (Auto) (0-5) /lpf 12/26/18 Range/Units 11:43 WBC (4.8-10.8) K/uL RBC (4.7-6.1) M/uL Hgb (14.0-18.0) g/dL Hct (42-52) % RDW Std Deviation (36.4-46.3) fL Plt Count (130-400) K/uL Immature Gran # (Auto) (0.00-0.02) K/uL Neut # (Auto) (1.4-6.5) K/uL Lymph # (Auto) (1.2-3.4) K/uL Chloride (98-107) mmol/L BUN (7-18) mg/dl Glucose (70-99) mg/dl POC Glucose 136 H (70-99) Albumin (3.4-5.0) gm/dl Ur Specific [place] (1.000-1.030) Urine Protein (Negative) Urine Glucose (UA) (Negative) Urine RBC (Auto) (0-4) /hpf U Epithel Cells (Auto) (0-5) /lpf Diagnostic Findings CT head- No significant change compared to the prior study. No acute intracranial abnormality. Old left basal ganglia infarct. CXR No change compared to the prior study. Small left pleural effusion and bibasilar densities persist. This favors atelectasis. However, pneumonia could also have a similar appearance. CTA head-. No significant stenosis or occlusion within the [place]. 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 Approximately 60-70% stenosis within the proximal right internal carotid artery and 50% stenosis within the proximal left internal carotid artery, unchanged. CTA neck -No significant stenosis or occlusion within the [place]. 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 Approximately 60-70% stenosis within the proximal right internal carotid artery and 50% stenosis within the proximal left internal carotid artery, unchanged. CT head-. No acute intracranial abnormality. Chronic findings as above including subcentimeter aneurysmal dilation of the right MCA trifurcation.
--- NOTE | 2018-12-26 13:24 | CT Scan Report ---
CT head/brain wo con CLINICAL HISTORY: 78 years-old Male with tia, ffup ct. Acute strokelike symptoms TECHNIQUE: Multiple axial CT images of the head were obtained without contrast. A dose lowering tech nique was utilized adhering to the principles of ALARA. CT DOSE: 614.27 mGy.cm COMPARISON: CT head, CTA head and neck December 25, 2018 FINDINGS: No acute intracranial hemorrhage, midline shift, intracranial mass, hydrocephalus, territorial ischem ia or abnormal extra-axial collection. Age-related involutional changes. Encephalomalacia from remote infarction about the left sams radiata, external capsule and lentiform nucleus with ex vacuo ventr iculomegaly about the left lateral ventricle. Background chronic microvascular ischemic changes. Cere bral vascular calcifications are noted. The calvarium is intact. Prior bilateral cataract repair. Unchanged subcentimeter aneurysm dilation o f the right MCA trifurcation. The paranasal sinuses, mastoid air cells, and middle ear cavities are c lear. IMPRESSION: 1. No acute intracranial abnormality. 2. Chronic findings as above including subcentimeter aneurysmal dilation of the right MCA trifurcatio n. The above report was generated using voice recognition software. It may contain grammatical, syntax o r spelling errors. Electronically signed by: Bridger Carrillo M.D. 12/26/2018 1:23 PM
[2018-12-26] MEDS: levETIRAcetam 500 MG TAB PO SCH ×2 (14:16→20:44)
[2018-12-26] MEDS: MULTIVITAMIN TAB PO SCH (17:32)
[2018-12-26] MEDS: CARVEDILOL 12.5 MG TAB PO SCH (17:33)
[2018-12-26] MEDS: ASPIRIN 81 MG ECTAB PO SCH (20:45)
[2018-12-26] MEDS: CLOPIDOGREL BISULFATE 75 MG TAB PO SCH (20:45)
[2018-12-27] MEDS: CARVEDILOL 12.5 MG TAB PO SCH ×2 (08:40→17:49)
[2018-12-27] MEDS: levETIRAcetam 500 MG TAB PO SCH ×2 (08:41→21:06)
[2018-12-27] MEDS: FUROSEMIDE 20 MG TAB PO SCH (08:41)
[2018-12-27] MEDS: ROSUVASTATIN CALCIUM 5 MG TAB PO SCH (08:42)
[2018-12-27] MEDS: INSULIN GLARGINE SOLOSTAR 100 UNITS/ML 3 ML PEN SC SCH (08:42)
[2018-12-27] MEDS: INSULIN ASPART 100 UNITS/ML 3 ML PEN SC SCH ×4 (08:44→21:05)
[2018-12-27] MEDS: SERTRALINE HCL 50 MG TABLET PO SCH (12:19)
--- NOTE | 2018-12-27 13:36 | Neurology Progress Note ---
Date of Service December 27, 2018 Assessment & Plan (1) Generalized weakness: 1. CT head - no new findings- repeated and stable- pacemaker is not compatible with MRI but no real evidence of new event on exam 2. CXR- possible pneumonia 3. previous stroke -likely no new event likely a febrile infection which cause some generalized weakness which increased appears of old stroke 4. PT/OT - for discharge needs 5. continue Plavix 75 mg and aspirin 81 mg 6. primary team to r/o infectious process 7. ok to discharge once cleared by PT/OT and medically stable follow up with neurology as previous scheduled 03/15/[address] Vernell Gifford will sign off but be available for any questions concerns. Supervising Physician Co-Signing Physician Notes I have seen and discussed above patient with Dr Petr Lopez, neurology I seen Mr. Quan today, who evaluated him, reviewed his imaging studies, laboratory studies and discussed his case with Vernell Llanos PA-C. He is even more improved than he was yesterday and I believe he is back to his baseline. We have nothing to suggest the had a new cerebrovascular accident. I suspect this was a nonspecific toxic effect of a presumptive infectious illness characterized by fever and a potential pulmonary infiltrate. These issues are being addressed by his internal medicine team. For now neurology is going to sign off the case I am recommending no change in his antiplatelet therapy and we will see him in follow-up as previously scheduled but really do not feel we need to see him on a more urgent basis following this discharge he does have an appointment with Dr. Curtis his primary care neurologist in early March and I think this is certainly sufficient. If however the discharge team feels we do need to see him in Vernell Reich and/or myself could work him in earlier for an assessment. Petr Stephens is a 78 year old male presenting to the ED with potential stroke. He had an event of slurred speech and right sided facial droop. He had a stroke a few years back and suffered from mild right sided facial droop and right sided weakness. But his felt the facial droop and right sided weakness is worse than normal. Accord to EMS noted he had a fever and diarrhea beginning yesterday. He states that he is having diffuse body aches associated with his fever/chills. He has a hx of triple bypass, pacemaker and HTN. He is very emotional because he has a difficulty expressing how he feels and states he doesn't like living this way. denies CP, SOB, abdominal pain, increased one sided weakness, numbness tingling, N, V. Today he is sitting up in chair bedside. He appears more alert and interactive and able to communicate but still slowed speech. Physical Exam 2 Vital Signs (Past 24 Hours): Last Vital Signs Temp 37 C 12/27/18 11:46 Pulse 63 12/27/18 11:46 Resp 18 12/27/18 11:46 BP 147/77 H 12/27/18 11:46 Pulse Ox 94 12/27/18 11:46 Gen: alert NAD lungs CTA CV RRR right UE hand parliamentary librarian biceps triceps 4/5, right leg hip flex 4/5 left UE hand parliamentary librarian biceps triceps 5/5 left leg hip flex 5/5 pronator drift right slight flattening of right nasolabial fold Results & Data Laboratory Results Abnormal lab results 12/26/18 12/26/18 12/27/18 Range/Units 17:06 20:23 07:36 POC Glucose 184 H 149 H 120 H (70-99) 12/27/18 Range/Units 11:28 POC Glucose 202 H (70-99) Diagnostic Findings no new imaging
--- NOTE | 2018-12-27 16:25 | Hospitalist Progress Note ---
Date of Service December 27, 2018 Assessment & Plan (1) Stroke: No new intracranial event and no further neurologic workup necessary per Neuro. Pt medically stable for discharge, however, has too much ice on driveway and cannot safely get up to his house today. Will plan for discharge in am. Restarted losartan and hydralazine which were held for permissive HTN. (2) Diabetes mellitus, type II: At inpatient goal, continue glargine and insulin sliding scale per protocol. (3) Status post coronary artery bypass grafting: Plavix, Crestor, aspirin, Coreg (4) Status post cardiac pacemaker procedure: (5) Chronic systolic CHF (congestive heart failure), NYHA class 3: Compensated, euvolemic. No issues with diarrhea, clarified with and patient. Ccontinue Lasix and potassium supplementation along with other home medications. (6) Seizure disorder: Keppra XR not on formulary. Cont Keppra 500 mg IR twice daily while inpatient. This was discussed with neurology. (7) Thrombocytopenia: chronic per outpatient record review. (8) DVT prophylaxis: SCDs RE: Thrombocytopenia Full code Dispo-to home in am [facility] Subjective feels at baseline feels improved overall tolerating PO ambulating and mentating at baseline. no cough, fevers, chills or other infectious symptoms present Physical Exam 2 Vital Signs (Past 24 Hours): Last Vital Signs Temp 36.8 C 12/27/18 14:29 Pulse 60 12/27/18 14:29 Resp 20 12/27/18 14:29 BP 144/76 H 12/27/18 14:29 Pulse Ox 95 12/27/18 14:29 CONSTITUTIONAL: WNWD, vitals as above, generally well-appearing EYES: EOMI bilaterally, PERRL, normal conjuctivae, no scleral icterus ENT: MMM NECK: trachea midline RESPIRATORY: clear to auscultation bilaterally, no crackles, rales or wheezes, normal respiratory effort CARDIOVASCULAR: regular rate and rhythm, S1 and 2 heard without murmurs, gallops or rubs, no JVD, no peripheral edema GASTROINTESTINAL: normal bowel sounds, soft, nontender, nondistended, multiple well-healed scars MUSCULOSKELETAL: strength 5/5 throughout, integrated marketing intern strength intact bilaterally with slight weakness in R hand. head is normocephalic and atraumatic SKIN: warm and dry, no rashes NEUROLOGIC: PERRL, EOMI, no facial palsy-smile is symmetric, no dysarthria and oriented. R hemianesthesia. PSYCHIATRIC: alert cooperative and oriented to person, place and time. Results & Data Medications Administered Current Inpatient Medications Acetaminophen (Tylenol) 650 mg PO Q4H PRN PRN Reason: Pain or Fever Stop: 01/25/19 01:40 Last Admin: 12/26/18 23:43 Dose: 650 mg Aspirin (Ecotrin Ectab) 81 mg PO HS [facility] Stop: 01/25/19 20:59 Last Admin: 12/27/18 21:06 Dose: 81 mg Carvedilol (Coreg) 18.75 mg PO BIDM [facility] Stop: 01/25/19 16:59 Last Admin: 12/27/18 17:49 Dose: 18.75 mg Clopidogrel Bisulfate (Plavix) 75 mg PO HS [facility] Stop: 01/25/19 20:59 Last Admin: 12/27/18 21:05 Dose: 75 mg Dextrose (Dextrose 50%) 25 - 50 ml IV UD PRN; Protocol PRN Reason: Hypoglycemia Protocol Stop: 01/25/19 01:40 Furosemide (Lasix) 10 mg PO QAM [facility] Stop: 01/26/19 08:59 Last Admin: 12/27/18 08:41 Dose: 10 mg Glucagon (Glucagen) 1 mg SQ UD PRN; Protocol PRN Reason: Hypoglycemia Protocol Stop: 01/25/19 01:40 Glucose (Glucose 40%) 15 - 30 gm PO UD PRN; Protocol PRN Reason: Hypoglycemia Protocol Stop: 01/25/19 01:40 Glucose (Dex4 Glucose) 4 - 8 tabs PO UD PRN; Protocol PRN Reason: Hypoglycemia Protocol Stop: 01/25/19 01:40 Hydralazine HCl (Apresoline) 12.5 mg PO TIDM [facility] Stop: 01/27/19 07:59 Insulin Aspart (Novolog Flexpen) 0 units SC ACHS [facility] Stop: 01/25/19 05:59 Last Admin: 12/27/18 21:05 Dose: 1 units Insulin Glargine (Lantus Solostar Pen) 5 units SC DAILY [facility] Stop: 01/26/19 08:59 Last Admin: 12/27/18 08:42 Dose: 5 units Levetiracetam (Keppra) 500 mg PO BID [facility] Stop: 01/25/19 11:44 Last Admin: 12/27/18 21:06 Dose: 500 mg Losartan Potassium (Cozaar) 100 mg PO QAM [facility] Stop: 01/27/19 08:59 Miscellaneous (Carbohydrates For Hypoglycemia) 15 - 30 gm PO UD PRN PRN Reason: Hypoglycemia Treatment Stop: 01/25/19 01:40 Miscellaneous Information (Pharmacist Discharge Med Rec Consult) 1 ea N/A UD PRN PRN Reason: Consult Stop: 01/25/19 01:40 Multivitamins (Multivitamin Tab) 1 tab PO QDD [facility] Stop: 01/25/19 16:29 Last Admin: 12/27/18 17:49 Dose: 1 tab Oxycodone HCl (Roxicodone Immediate Rel) 5 mg PO Q6 PRN PRN Reason: Pain Stop: 01/09/19 01:40 Oxycodone/Acetaminophen (Percocet 5mg/325mg) 1 tab PO Q4H PRN PRN Reason: Pain Stop: 01/09/19 01:40 Potassium Chloride (Klor-Con M10) 10 meq PO QDD [facility] Stop: 01/26/19 16:29 Last Admin: 12/27/18 17:48 Dose: 10 meq Rosuvastatin Calcium (Crestor) 5 mg PO DAILY [facility] Stop: 01/25/19 08:59 Last Admin: 12/27/18 08:42 Dose: 5 mg Sertraline HCl (Zoloft) 50 mg PO QDL [facility] Stop: 01/25/19 11:29 Last Admin: 12/27/18 12:19 Dose: 50 mg
[2018-12-27] MEDS: POTASSIUM CHLORIDE 10 MEQ TABCR PO SCH (17:48)
[2018-12-27] MEDS: MULTIVITAMIN TAB PO SCH (17:49)
[2018-12-27] MEDS: CLOPIDOGREL BISULFATE 75 MG TAB PO SCH (21:05)
[2018-12-27] MEDS: ASPIRIN 81 MG ECTAB PO SCH (21:06)
[2018-12-28] MEDS: CARVEDILOL 12.5 MG TAB PO SCH ×2 (07:57→17:53)
[2018-12-28] MEDS: LOSARTAN POTASSIUM 50 MG TAB PO SCH (07:58)
[2018-12-28] MEDS: FUROSEMIDE 20 MG TAB PO SCH (07:58)
[2018-12-28] MEDS: levETIRAcetam 500 MG TAB PO SCH ×2 (07:58→20:22)
[2018-12-28] MEDS: ROSUVASTATIN CALCIUM 5 MG TAB PO SCH (07:58)
[2018-12-28] MEDS: INSULIN ASPART 100 UNITS/ML 3 ML PEN SC SCH ×4 (08:00→20:21)
[2018-12-28] MEDS: INSULIN GLARGINE SOLOSTAR 100 UNITS/ML 3 ML PEN SC SCH (08:00)
[2018-12-28] MEDS: SERTRALINE HCL 50 MG TABLET PO SCH (12:21)
[2018-12-28] MEDS ORDERED: STROKE PATIENT DISCHARGE STA (12:31)
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
[2018-12-28] MEDS: POTASSIUM CHLORIDE 10 MEQ TABCR PO SCH (16:19)
[2018-12-28] MEDS: MULTIVITAMIN TAB PO SCH (16:19)
--- NOTE | 2018-12-28 19:03 | Hospitalist Progress Note ---
Date of Service December 28, 2018 Assessment & Plan (1) Stroke: No new intracranial event and no further neurologic workup necessary per Neuro. Pt medically stable for discharge, however, has too much ice on driveway and cannot safely get up to his house today again. Will plan for discharge in am. (2) Diabetes mellitus, type II: At inpatient goal, continue glargine and insulin sliding scale per protocol. (3) Status post coronary artery bypass grafting: Plavix, Crestor, aspirin, Coreg (4) Status post cardiac pacemaker procedure: (5) Chronic systolic CHF (congestive heart failure), NYHA class 3: Compensated, euvolemic. Continue Lasix and potassium supplementation along with other home medications. (6) Seizure disorder: Keppra XR not on formulary. Cont Keppra 500 mg IR twice daily while inpatient. (7) Thrombocytopenia: chronic per outpatient record review. (8) DVT prophylaxis: SCDs RE: Thrombocytopenia Full code [facility]po-to home in am [facility] Subjective At baseline functioning post-stroke. States he cannot return home because there is still ice blocking his driveway Denies any new symptoms today Tolerating PO Physical Exam 2 Vital Signs (Past 24 Hours): Last Vital Signs Temp 36.7 C 12/28/18 16:28 Pulse 59 L 12/28/18 16:28 Resp 16 12/28/18 16:28 BP 145/75 H 12/28/18 16:28 Pulse Ox 95 12/28/18 16:28 CONSTITUTIONAL: WNWD, vitals as above, generally well-appearing EYES: normal conjuctivae, no scleral icterus ENT: MMM NECK: trachea midline RESPIRATORY: clear to auscultation bilaterally, no crackles, rales or wheezes, normal respiratory effort CARDIOVASCULAR: regular rate and rhythm, S1 and 2 heard without murmurs, gallops or rubs, no JVD, no peripheral edema GASTROINTESTINAL: soft, nontender, nondistended, multiple well-healed scars MUSCULOSKELETAL: strength 5/5 throughout, 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 head is normocephalic and atraumatic SKIN: warm and dry, no rashes NEUROLOGIC: no facial palsy-smile is symmetric, no dysarthria and oriented. R hemianesthesia. PSYCHIATRIC: alert cooperative and oriented to person, place and time. Results & Data Medications Administered Current Inpatient Medications Acetaminophen (Tylenol) 650 mg PO Q4H PRN PRN Reason: Pain or Fever Stop: 01/25/19 01:40 Last Admin: 12/26/18 23:43 Dose: 650 mg Aspirin (Ecotrin Ectab) 81 mg PO HS [facility] Stop: 01/25/19 20:59 Last Admin: 12/28/18 20:22 Dose: 81 mg Carvedilol (Coreg) 18.75 mg PO BIDM [facility] Stop: 01/25/19 16:59 Last Admin: 12/28/18 17:53 Dose: 18.75 mg Clopidogrel Bisulfate (Plavix) 75 mg PO HS [facility] Stop: 01/25/19 20:59 Last Admin: 12/28/18 20:22 Dose: 75 mg Dextrose (Dextrose 50%) 25 - 50 ml IV UD PRN; Protocol PRN Reason: Hypoglycemia Protocol Stop: 01/25/19 01:40 Furosemide (Lasix) 10 mg PO QAM [facility] Stop: 01/26/19 08:59 Last Admin: 12/28/18 07:58 Dose: 10 mg Glucagon (Glucagen) 1 mg SQ UD PRN; Protocol PRN Reason: Hypoglycemia Protocol Stop: 01/25/19 01:40 Glucose (Glucose 40%) 15 - 30 gm PO UD PRN; Protocol PRN Reason: Hypoglycemia Protocol Stop: 01/25/19 01:40 Glucose (Dex4 Glucose) 4 - 8 tabs PO UD PRN; Protocol PRN Reason: Hypoglycemia Protocol Stop: 01/25/19 01:40 Hydralazine HCl (Apresoline) 12.5 mg PO TIDM [facility] Stop: 01/27/19 07:59 Last Admin: 12/28/18 17:53 Dose: 12.5 mg Insulin Aspart (Novolog Flexpen) 0 units SC ACHS [facility] Stop: 01/25/19 05:59 Last Admin: 12/28/18 20:21 Dose: Not Given Insulin Glargine (Lantus Solostar Pen) 5 units SC DAILY [facility] Stop: 01/26/19 08:59 Last Admin: 12/28/18 08:00 Dose: 5 units Levetiracetam (Keppra) 500 mg PO BID [facility] Stop: 01/25/19 11:44 Last Admin: 12/28/18 20:22 Dose: 500 mg Losartan Potassium (Cozaar) 100 mg PO QAM [facility] Stop: 01/27/19 08:59 Last Admin: 12/28/18 07:58 Dose: 100 mg Miscellaneous (Carbohydrates For Hypoglycemia) 15 - 30 gm PO UD PRN PRN Reason: Hypoglycemia Treatment Stop: 01/25/19 01:40 Multivitamins (Multivitamin Tab) 1 tab PO QDD [facility] Stop: 01/25/19 16:29 Last Admin: 12/28/18 16:19 Dose: 1 tab Oxycodone HCl (Roxicodone Immediate Rel) 5 mg PO Q6 PRN PRN Reason: Pain Stop: 01/09/19 01:40 Oxycodone/Acetaminophen (Percocet 5mg/325mg) 1 tab PO Q4H PRN PRN Reason: Pain Stop: 01/09/19 01:40 Potassium Chloride (Klor-Con M10) 10 meq PO QDD [facility] Stop: 01/26/19 16:29 Last Admin: 12/28/18 16:19 Dose: 10 meq Rosuvastatin Calcium (Crestor) 5 mg PO DAILY [facility] Stop: 01/25/19 08:59 Last Admin: 12/28/18 07:58 Dose: 5 mg Sertraline HCl (Zoloft) 50 mg PO QDL [facility] Stop: 01/25/19 11:29 Last Admin: 12/28/18 12:21 Dose: 50 mg
[2018-12-28] MEDS: CLOPIDOGREL BISULFATE 75 MG TAB PO SCH (20:22)
[2018-12-28] MEDS: ASPIRIN 81 MG ECTAB PO SCH (20:22)
[2018-12-29] MEDS: CARVEDILOL 12.5 MG TAB PO SCH (08:39)
[2018-12-29] MEDS: ROSUVASTATIN CALCIUM 5 MG TAB PO SCH (08:40)
[2018-12-29] MEDS: FUROSEMIDE 20 MG TAB PO SCH (08:40)
[2018-12-29] MEDS: levETIRAcetam 500 MG TAB PO SCH (08:40)
[2018-12-29] MEDS: LOSARTAN POTASSIUM 50 MG TAB PO SCH (08:41)
[2018-12-29] MEDS: INSULIN GLARGINE SOLOSTAR 100 UNITS/ML 3 ML PEN SC SCH (08:48)
[2018-12-29] MEDS: INSULIN ASPART 100 UNITS/ML 3 ML PEN SC SCH ×2 (08:48→12:48)
[2018-12-29] MEDS: SERTRALINE HCL 50 MG TABLET PO SCH (12:48)
--- NOTE | 2019-01-02 09:25 | Coding Query ---
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 Please assist us with the question(s) below: Coding Question(s): The Neurology Consultation and Neurology Progress Note document, "CXR - possible pneumonia", but there is no documentation by attending and no documentation of treatment for pneumonia. Please clarify below, in your clinical opinion, regarding the possible pneumonia. ( ) Possible Pneumonia was treated during this admission (x ) Possible Pneumonia was Ruled-Out ( ) Other: Please Specify Physician's Response(s): Thank you Natty Somers Principal Diagnosis: "that condition established after study, to be chiefly responsible for occasioning the admission of the patient to the hospital for care." Co-Existing Principal Diagnosis: "when two or more diagnoses equally meet the criteria for principal diagnosis as determined by the circumstances of admission, diagnostic work up, and/or therapy provided, and the Alphabetic Index, Tabular List, or another coding guideline does not provide sequencing direction, any one of the diagnoses may be sequenced first." "When the physician has documented what appears to be a current diagnosis in the body of the record, but has not included the diagnosis in the final diagnostic statement, the physician should be asked whether the diagnosis should be added." (Source [facility]oding [facility] 2 QTR90. p3-4) LIZETT
--- NOTE | 2019-01-02 10:59 | History & Physical Report ---
Date of Service January 07, 2019 History of Present Illness Primary Care Provider: Xavi Moreno MD Allergies Allergy/AdvReac Type Severity Reaction Status Date / Time tramadol Allergy Severe seizures Verified 12/25/18 23:28 iodine Allergy Intermediate airway Verified 12/25/18 23:28 edema oxycodone Allergy Unknown "itchiness Verified 12/25/18 23:28 all over" felodipine AdvReac Mild cough Verified 12/25/18 23:28 ANCELMO Inhibitors AdvReac Unknown COUGHING Verified 12/25/18 23:28 codeine AdvReac Unknown hallucinations, Verified 12/25/18 23:28 depression Home Medications Home Medications Medication Instructions Recorded Confirmed Type aspirin [Aspir-Low] 81 mg PO HS 09/07/18 12/25/18 History calcium polycarbophil [Fiber-Tabs] 1 tab PO QAM 09/07/18 12/25/18 History carvedilol [Coreg] 18.75 mg PO BIDM 09/07/18 12/25/18 History clopidogrel [Plavix] 75 mg PO HS 09/07/18 12/25/18 History dicyclomine 20 mg PO Q6 PRN 09/07/18 12/25/18 History diphenhydramine HCl [Benadryl] 50 mg PO DIRECTED PRN 09/07/18 12/25/18 History furosemide [Lasix] 10 mg PO QAM 09/07/18 12/25/18 History levetiracetam [Keppra XR] 1,000 mg PO HS 09/07/18 12/25/18 History losartan [Cozaar] 100 mg PO QAM 09/07/18 12/25/18 History multivitamin 1 tab PO QDD 09/07/18 12/25/18 History nitroglycerin [Nitrostat] 0.4 mg SUBLINGUAL UD PRN 09/07/18 12/25/18 History oxycodone [Roxicodone] 5 mg PO Q6 PRN 09/07/18 12/25/18 History potassium chloride [Klor-Con 10] 10 meq PO QDD 09/07/18 12/25/18 History sertraline [Zoloft] 50 mg PO QDL 09/07/18 12/25/18 History magnesium 200 mg PO DAILY PRN 11/11/18 12/25/18 History rosuvastatin 5 mg PO DAILY 11/14/18 12/25/18 History hydralazine 12.5 mg PO TIDM 12/25/18 12/25/18 History Past Med/Surg History Medical History Stroke Left bundle branch block (Chronic) Dyslipidemia (Chronic) Carotid disease, bilateral (Chronic) "asymptomatic" Diabetes mellitus, type II (Chronic) Benign prostatic hyperplasia (Chronic) Hypertension (Chronic) History of skin cancer (Chronic) Malignant neoplasm of rectum (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/15) "Rectal bleeding Status post colonoscopy and biopsy 04/02/2015 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 Status post endoscopic ultrasound stage [id number] Neoadjuvant radiation and chemotherapy Chemotherapy comprised of Xeloda Status post completion of radiation therapy 06/24/2015 received 5460 cGy Status post rectosigmoid resection 08/27/2015 ypT2 ypN0 M0 Status post ileostomy closure 04/14/2016, gait by small bowel obstruction and then hemorrhage Status post CVA and then slow wound healing" On 01/20/16 16:12 Celeste Burrell wrote "Rectal bleeding Status post colonoscopy and biopsy 04/02/2015 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 Status post endoscopic ultrasound stage [id number] Neoadjuvant radiation and chemotherapy Chemotherapy comprised of Xeloda Status post completion of radiation therapy 06/24/2015 received 5460 cGy Status post rectosigmoid resection 08/27/2015 ypT2 ypN0 M0" On 07/02/15 10:41 Celeste Burrell wrote "Rectal bleeding Status post colonoscopy and biopsy 04/02/2015 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 [place] [facility] [place]LAD[place] SVG left circumflex" Status post cardiac pacemaker procedure (Chronic) "initial 2005, generator change 2011" Status post cholecystectomy (Chronic) Status post tonsillectomy (Chronic) Status post shoulder surgery (Chronic) S/P colon resection (Chronic) H/O ileostomy (Chronic) Family History Other Family history non-contributory Social History Preferred Language: Lithuanian Beliefs That Will Affect Care: None Current Living Situation: Spouse Other Information That Helps Us Care for You: No Feels Safe at Home: Yes Safety Concerns: Feels Safe At This Time Smoking Status: Never smoker Hx Alcohol Use: No Hx Substance Use: No Physical Exam Vital Signs (Past 24 Hours): Last Vital Signs Temp 36.8 C 12/29/18 12:12 Pulse 61 12/29/18 12:12 Resp 18 12/29/18 12:12 BP 118/71 12/29/18 12:12 Pulse Ox 96 12/29/18 12:12
== END 2018-12-29 14:36 | disposition home or self-care (01) | DRG 57 ==
LOC: ED 21:22 → 2N 12-26 00:29 → SUATTDRO 12-26 00:29 → 2N 12-26 01:17

== ENCOUNTER 2020-02-01 20:16 | Inpatient (IN) ==
--- NOTE | 2020-02-01 20:47 | CT Scan Report ---
CT head/brain wo con CLINICAL HISTORY: 79 years-old Male presenting with Stroke evaluation. TECHNIQUE: Multidetector CT imaging of the head was performed without the use of intravenous contrast . IV contrast: None. One or more dose lowering techniques were used consistent with the principles of ALARA (as low as reasonably achievable), including automatic exposure control, mA or kV adjustment t o individual patient size, and/or use of iterative reconstruction. COMPARISON: 12/26/2018. CT DOSE (mGy.cm): The estimated cumulative dose is 614.27 mGy.cm. FINDINGS: Director Speech topogram: Unremarkable. Proportional ventricular and sulcal prominence, likely age-related parenchymal volume loss. Additiona lly, there is ex vacuo dilatation of the body and frontal horn of the left lateral ventricle related to the presence of encephalomalacia. No hemorrhage. Old infarcts in the left basal ganglia and left p eriventricular white matter with periventricular white matter hypoattenuation suggesting associated c hronic small vessel ischemic change. 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 No acute territorial infarct. No mass effec t or midline shift. No extra-axial fluid collection. Paranasal sinuses and mastoid air cells clear. C alvarium intact. IMPRESSION: 1. Old infarcts in the left basal ganglia and associated chronic small vessel ischemic change. Findi ngs are unchanged. 2. No acute intracranial pathology. ACT 112: Negative or not required by law. Electronically signed by: Farhad Mcbride M.D. 02/01/2020 8:46 PM
[2020-02-01 21:08] LABS: Basophils # (auto) 0.01 K/uL (0-0.2); Basophils % (auto) 0.1 %; Eosinophils # (auto) 0.03 K/uL (0-0.5); Eosinophils % (auto) 0.4 %; Hematocrit (blood only) 38.2 % (42-52); Hemoglobin 12.2 g/dL (14.0-18.0); Immature Granulocytes # (auto) 0.04 K/uL (0.00-0.02); Immature Granulocytes % (auto) 0.6 %; Lymphocytes # (auto) 0.94 K/uL (1.2-3.4); Mean Corpuscular Hemoglobin 29.9 pg (25-34); Mean Corpuscular Hgb Conc 31.9 g/dL (32-36); Mean Corpuscular Volume 93.6 fL (80-100); Mean Platelet Volume 10.2 fL (7.4-10.4); Monocytes # (auto) 0.34 K/uL (0.11-0.59); Monocytes % (auto) 5.1 %; Neutrophils # (auto) 5.35 K/uL (1.4-6.5); Neutrophils % (auto) 79.8 %; Platelet Count 134 K/uL (130-400); RDW Coefficient of Variation 13.7 % (11.5-14.5); RDW Standard Deviation 46.6 fL (36.4-46.3); Red Blood Count 4.08 M/uL (4.7-6.1); White Blood Count 6.71 K/uL (4.8-10.8)
[2020-02-01 21:24] LABS: Alanine Aminotransferase 38 U/L (12-78); Albumin Level 3.7 gm/dl (3.4-5.0); Aspartate Aminotransferase 31 U/L (15-37); BUN Creatinine Ratio 14.3 (10-20); Blood Urea Nitrogen 18 mg/dl (7-18); Carbon Dioxide 29 mmol/L (21-32); Chloride 107 mmol/L (98-107); Creatinine Clr Calc Pharmacy 52.2 ml/min; Est GFR (African American) 63.2; Est GFR (Non-African American) 54.6; Glucose 180 mg/dl (70-99); INR 1.1 (0.9-1.1); Magnesium 2.2 mg/dl (1.8-2.4); Partial Thromboplastin Ratio 0.9; Partial Thromboplastin Time 24.5 Seconds (21.0-31.0); Potassium 4.4 mmol/L (3.5-5.1); Prothrombin Time 11.7 Seconds (9.0-12.0); Sodium 139 mmol/L (136-145)
[2020-02-01 21:29] LABS: Albumin Globulin Ratio 0.9 (0.9-2); Alkaline Phosphatase 122 U/L (45-117); Bilirubin,Total 0.5 mg/dl (0.2-1); Globulin 4.1 gm/dl (2.5-4.0); Total Protein 7.8 gm/dl (6.4-8.2); Troponin I < 0.015 ng/ml (0-0.045)
--- NOTE | 2020-02-01 21:31 | XRay Report ---
XR hip RT 2V w pelvis CLINICAL HISTORY: 79 years-old Male presenting with eval for fx on right. TECHNIQUE: Single frontal view of the pelvis and frontal and crosstable lateral views of the right hi p were obtained. COMPARISON: 09/16/2017. FINDINGS: Severe osteopenia. Basicervical right femoral neck fracture with varus angulation. Right femoral head remains congruent in the acetabulum. No advanced degenerative changes of the right hip joint or left hip joint. The right femoral shaft is mildly displaced proximally. The left femoral neck is grossly intact as is the bony pelvis allowing for the severity of osteopenia. Degenerative changes of the low er lumbar spine. Sacroiliac joints, pubic symphysis, and left hip joint congruent. Anastomotic suture line projects over the rectum. IMPRESSION: 1. Basicervical right femoral neck fracture with mild proximal displacement and varus angulation. 2. Severe osteopenia. ACT 112: Negative or not required by law. Electronically signed by: Farhad Mcbride M.D. 02/01/2020 9:30 PM
--- NOTE | 2020-02-01 22:00 | XRay Report ---
XR chest 1V portable CLINICAL HISTORY: 79 years-old Male presenting with fall, weakness. TECHNIQUE: Portable semiupright AP view of the chest was obtained. COMPARISON: 12/25/2018. FINDINGS: Left subclavian pacer with leads to the right atrium, right ventricular apex, and coronary sinus. Med elaine sternotomy wires and mediastinal surgical clips. Atherosclerosis of the aortic arch. Cardiac silh ouette mildly enlarged. Pulmonary vascular and interstitial prominence similar to prior exam. Lungs a re slightly better aerated on the current exam. Persistent left basilar opacity with left hemidiaphra gm elevation. Chronic left pleural thickening or pleural effusion. No pneumothorax. Osteopenia. Postt raumatic deformity of the right humerus new from prior. Degenerative changes of the glenohumeral join ts and spine. Cholecystectomy clips noted. IMPRESSION: 1. Right humeral neck fracture new from prior exam, presumably acute in the setting of underlying os teopenia. 2. Cardiomegaly with chronic volume overload and congestive change. This is similar to prior. 3. Chronic left pleural effusion or pleural thickening. 4. Chronic left basilar opacity, possibly atelectasis. ACT 112: Negative or not required by law. Electronically signed by: Farhad Mcbride M.D. 02/01/2020 9:58 PM
[2020-02-01] MEDS ORDERED: HYDROCODONE/ACETAMOPHEN 5/325MG TAB PO PRN (22:01)
[2020-02-01] MEDS ORDERED: MoRPHine SULFATE 2 MG/ML CARP IV PRN (22:02)
[2020-02-01] MEDS ORDERED: FUROSEMIDE 40 MG/4 ML VIAL IV STA (22:04)
--- NOTE | 2020-02-01 22:19 | Emergency Department Note ---
History of Present Illness General Chief complaint: Hip Pain Time Seen by Provider: 02/01/20 20:18 Source: patient Mode of arrival: EMS Limitations: no limitations and other (poor historian) History of Present Illness Maximum Pain Intensity: 8 This patient was brought in after falling and having right hip pain he was placed in room A2. He is brought in by EMS. He apparently had fallen and injured his right hip and complains a hip pain when the nurse examined him he was concerned that the patient was weak on the right side both arm and leg and called a stroke alert. The patient denies any chest pain or shortness of breath or fever or chills. He has had a stroke in the past and does have some baseline right-sided symptoms. This occurred around 630 is the last known well. No recent illness. Home Medications Home Medications Medication Instructions Recorded Confirmed Type aspirin [Aspir-Low] 81 mg PO HS 09/07/18 02/01/20 History carvedilol [Coreg] 18.75 mg PO BIDM 09/07/18 02/01/20 History clopidogrel [Plavix] 75 mg PO HS 09/07/18 02/01/20 History dicyclomine 20 mg PO Q6 PRN 09/07/18 02/01/20 History furosemide [Lasix] 40 mg PO 3XWK 09/07/18 02/01/20 History levetiracetam [Keppra XR] 500 mg PO BID 09/07/18 02/01/20 History losartan [Cozaar] 100 mg PO QAM 09/07/18 02/01/20 History multivitamin 1 tab PO QDD 09/07/18 02/01/20 History nitroglycerin [Nitrostat] 0.4 mg SUBLINGUAL UD PRN 09/07/18 02/01/20 History potassium chloride [Klor-Con 10] 10 meq PO QDL 09/07/18 02/01/20 History sertraline [Zoloft] 75 mg PO .QDL.HS 09/07/18 02/01/20 History magnesium 400 mg PO QDL 11/11/18 02/01/20 History rosuvastatin 5 mg PO HS 11/14/18 02/01/20 History hydralazine 12.5 mg PO TIDM 12/25/18 02/01/20 History furosemide 20 mg PO 4XWK 02/01/20 02/01/20 History metformin 500 mg PO BIDM 02/01/20 02/01/20 History methylcellulose (laxative) [Fiber 500 mg PO QAM 02/01/20 02/01/20 History Laxative (methylcellulo)] Allergies Allergy/AdvReac Type Severity Reaction Status Date / Time tramadol Allergy Severe seizures Verified 02/01/20 20:54 iodine Allergy Intermediate airway Verified 02/01/20 20:54 edema oxycodone Allergy Intermediate "itchiness Verified 02/01/20 20:54 all over" codeine AdvReac Intermediate hallucinations, Verified 02/01/20 20:54 depression ANCELMO Inhibitors AdvReac Mild COUGHING Verified 02/01/20 20:54 felodipine AdvReac Mild cough Verified 02/01/20 20:54 Past Med/Surg History Medical History AV block (Chronic) "s/p pacemaker" Benign prostatic hyperplasia (Chronic) Carotid disease, bilateral (Chronic) "asymptomatic" Coronary artery disease (Chronic) "s/p CA" Diabetes mellitus, type II (Chronic) Dyslipidemia (Chronic) GERD (gastroesophageal reflux disease) (Chronic) History of skin cancer (Chronic) Hypertension (Chronic) Left bundle branch block (Chronic) Malignant neoplasm of rectum (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/15) "Rectal bleeding Status post colonoscopy and biopsy 04/02/2015 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 Status post endoscopic ultrasound stage [id number] Neoadjuvant radiation and chemotherapy Chemotherapy comprised of Xeloda Status post completion of radiation therapy 06/24/2015 received 5460 cGy Status post rectosigmoid resection 08/27/2015 ypT2 ypN0 M0 Status post ileostomy closure 04/14/2016, gait by small bowel obstruction and then hemorrhage Status post CVA and then slow wound healing" On 01/20/16 16:12 Celeste Burrell wrote "Rectal bleeding Status post colonoscopy and biopsy 04/02/2015 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 Status post endoscopic ultrasound stage [id number] Neoadjuvant radiation and chemotherapy Chemotherapy comprised of Xeloda Status post completion of radiation therapy 06/24/2015 received 5460 cGy Status post rectosigmoid resection 08/27/2015 ypT2 ypN0 M0" On 07/02/15 10:41 Celeste Burrell wrote "Rectal bleeding Status post colonoscopy and biopsy 04/02/2015 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 Hand Required: No Beliefs That Will Affect Care: None Current Living Situation: Spouse Feels Safe at Home: Yes Smoking Status: Unknown if ever smoked Hx Alcohol Use: No Hx Substance Use: No Review of Systems A total of 10 systems reviewed and were otherwise negative Physical Exam Vital Signs Vital Signs - 24 hr 02/01/20 20:17 02/01/20 20:36 02/01/20 21:00 Pulse Rate 79 72 77 Pulse Rate from SpO2 Sensor 69 Pulse Rhythm Regular Pulse Strength Normal Respiratory Rate 18 25 H 23 Respiratory Effort / Characteristics Non-Labored Respiratory Depth Normal Respiratory Pattern Regular Blood Pressure 168/79 H 179/119 H 170/79 H Blood Pressure Mean 108 150 118 Blood Pressure Position Lying Pulse Oximetry 93 94 93 Oxygen Delivery Method Room Air Room Air Room Air Sepsis Recent Fever Within 48 Hours No Sepsis Action Taken by Nursing No Action Required General: Well developed well nourished older male who appears in no acute distress with exception of right hip pain, breathing comfortably on room air. Normal speech. He answers most questions appropriately but vaguely and is a poor historian HEENT: Normal cephalic atraumatic. Pupils are equal round and reactive to light. Extraocular movements are intact. Oropharynx is pink with moist mucous membranes. No swelling of the mouth lips or tongue. Neck: Supple with a midline trachea. No meningeal signs or stiffness, no JVD or bruits. No Stridor. Chest: Clear to auscultation bilaterally. No wheezes or rhonchi. No increased work of breathing. Heart: Regular rate and rhythm without murmurs or gallops. Abdomen: Soft nontender, nondistended without rebound guarding or rigidity. Extremities: No cyanosis clubbing or edema. No calf tenderness or assymetry. His right hip is tender and shortened and rotated slightly consistent with a hip fracture Spine/Back. Non tender to palpation. No CVA tenderness Skin: Good turgor without rashes. Neurologic exam: Cranial nerves two through 12 are intact. Difficult to assess the right leg secondary to pain. He may have a very mild right-sided weakness compared to the left but has no pronator drift on the right. Critical Care Time Critical Care Time: Yes Total Critical Care Time: 32 Due to the patient's concern for a stroke and strokelike symptoms and concern for possible TPA, as well as fall/trauma, a stroke alert was called and the patient was reassessed frequently and I have discussed at length with the stroke neurologist as well as the hospitalist and I have personally spent greater than 32 minutes of critical care time in the direct management of this patient. This includes bedside care, interpretation of diagnostic studies, and testing, discussion with consultants, patient, and family members, and other required patient management activities. This 32 minutes is in excess of all separately billable procedures. Medical Decision Making Differential Diagnosis Differential diagnosis includes but is not limited to: Stroke, trauma, hip fracture, arrhythmia, electrolyte or metabolic abnormality, infection Medical Records Attestation: I reviewed the patient's medical records. The patient is on aspirin and Plavix but no other blood thinners Home Medications Current Medication List: was personally reviewed by me Laboratory Data Attestation: I reviewed the patient's lab results. Result diagrams: 02/01/20 20:43 02/01/20 20:43 Lab Results 02/01/20 02/01/20 02/01/20 Range/Units 20:41 20:43 20:43 WBC 6.71 (4.8-10.8) K/uL RBC 4.08 L (4.7-6.1) M/uL Hgb 12.2 L (14.0-18.0) g/dL Hct 38.2 L (42-52) % MCV 93.6 (80-100) fL MCH 29.9 (25-34) pg MCHC 31.9 L (32-36) g/dL RDW Std Deviation 46.6 H (36.4-46.3) fL RDW Coeff of Arabella 13.7 (11.5-14.5) % Plt Count 134 (130-400) K/uL MPV 10.2 (7.4-10.4) fL Immature Gran % (Auto) 0.6 % Neut % (Auto) 79.8 % Lymph % (Auto) 14.0 % Terry % (Auto) 5.1 % Eos % (Auto) 0.4 % Baso % (Auto) 0.1 % Immature Gran # (Auto) 0.04 H (0.00-0.02) K/uL Neut # (Auto) 5.35 (1.4-6.5) K/uL Lymph # (Auto) 0.94 L (1.2-3.4) K/uL Terry # (Auto) 0.34 (0.11-0.59) K/uL Eos # (Auto) 0.03 (0-0.5) K/uL Baso # (Auto) 0.01 (0-0.2) K/uL PT (9.0-12.0) Seconds INR (0.9-1.1) APTT (21.0-31.0) Seconds PTT Ratio Sodium (136-145) mmol/L Potassium (3.5-5.1) mmol/L Chloride (98-107) mmol/L Carbon Dioxide (21-32) mmol/L Anion Gap (3-11) BUN (7-18) mg/dl Creatinine (0.6-1.4) mg/dl Est Cr Clr Drug Dosing ml/min Est GFR ( Amer) Est GFR (Non-Af Amer) BUN/Creatinine Ratio (10-20) Glucose (70-99) mg/dl POC Glucose 174 H (70-99) mg/dl Calcium (8.5-10.1) mg/dl Magnesium (1.8-2.4) mg/dl Total Bilirubin (0.2-1) mg/dl AST (15-37) U/L ALT (12-78) U/L Alkaline Phosphatase (45-117) U/L Troponin I (0-0.045) ng/ml Total Protein (6.4-8.2) gm/dl Albumin (3.4-5.0) gm/dl Globulin (2.5-4.0) gm/dl Albumin/Globulin Ratio (0.9-2) Blood Type O Positive Antibody Screen NEGATIVE 02/01/20 02/01/20 Range/Units 20:43 20:43 WBC (4.8-10.8) K/uL RBC (4.7-6.1) M/uL Hgb (14.0-18.0) g/dL Hct (42-52) % MCV (80-100) fL MCH (25-34) pg MCHC (32-36) g/dL RDW Std Deviation (36.4-46.3) fL RDW Coeff of Arabella (11.5-14.5) % Plt Count (130-400) K/uL MPV (7.4-10.4) fL Immature Gran % (Auto) % Neut % (Auto) % Lymph % (Auto) % Terry % (Auto) % Eos % (Auto) % Baso % (Auto) % Immature Gran # (Auto) (0.00-0.02) K/uL Neut # (Auto) (1.4-6.5) K/uL Lymph # (Auto) (1.2-3.4) K/uL Terry # (Auto) (0.11-0.59) K/uL Eos # (Auto) (0-0.5) K/uL Baso # (Auto) (0-0.2) K/uL PT 11.7 (9.0-12.0) Seconds INR 1.1 (0.9-1.1) APTT 24.5 (21.0-31.0) Seconds PTT Ratio 0.9 Sodium 139 (136-145) mmol/L Potassium 4.4 (3.5-5.1) mmol/L Chloride 107 (98-107) mmol/L Carbon Dioxide 29 (21-32) mmol/L Anion Gap 4.0 (3-11) BUN 18 (7-18) mg/dl Creatinine 1.24 (0.6-1.4) mg/dl Est Cr Clr Drug Dosing 52.2 ml/min Est GFR ( Amer) 63.2 Est GFR (Non-Af Amer) 54.6 BUN/Creatinine Ratio 14.3 (10-20) Glucose 180 H (70-99) mg/dl POC Glucose (70-99) mg/dl Calcium 9.0 (8.5-10.1) mg/dl Magnesium 2.2 (1.8-2.4) mg/dl Total Bilirubin 0.5 (0.2-1) mg/dl AST 31 (15-37) U/L ALT 38 (12-78) U/L Alkaline Phosphatase 122 H (45-117) U/L Troponin I < 0.015 (0-0.045) ng/ml Total Protein 7.8 (6.4-8.2) gm/dl Albumin 3.7 (3.4-5.0) gm/dl Globulin 4.1 H (2.5-4.0) gm/dl Albumin/Globulin Ratio 0.9 (0.9-2) Blood Type Antibody Screen Imaging Data My Impression: Hip x-ray. There is a right femoral neck fracture as per my interpretation Radiologist's Impression: CAT scan of the head: No acute findings. Old findings related to stroke Please refer to radiology reports ECG Data Attestation: I personally reviewed and interpreted this ECG as follows: Indication: + weakness Rate (beats per minute): 80 Rhythm: + other (Ventricular paced rhythm) ECG Intervals/blocks: + IVCD ECG [place]: + Left axis deviation ECG ST segments: + Normal ST segments Comparison ECG Date: from (12/27/18) Change: no significant change Blood Pressure Blood Pressure Findings: Normal blood pressure MDM Narrative This patient comes in as described above. He had a fall but the nurse was concerned that he was weak on the right side and called a stroke alert. I promptly responded and he does have some mild weakness on the right compared to the left in the arm. He is a very poor historian so is difficult to say when it started he did get a CAT scan of his head which is some old findings. I did not initially order a CTA as he has an iodine allergy which is listed as airway edema. The patient was evaluated with Dr. Juárez after I called a stroke alert. He does not feel the patient is a TPA candidate after further discussion with t he patient it sounds like he does have baseline right-sided weakness for several years is sound like his symptoms have not gotten significantly worse and may actually wax and wane. He does have a hip fracture which may be another reason not to give him TPA. EKG does not suggest ischemic changes. He does have a paced rhythm. He has nothing of electrolyte or metabolic abnormalities. He was given IV morphine for pain in the ER. I did consult Dr. Contreras to see him for further treatment and evaluation of his hip fracture. 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, Pacemaker, Weakness of right side of body Forms Stand Alone Forms: My [facility] [employer] Prescriptions Prescriptions: No Action magnesium 200 mg Tablet 400 mg PO QDL RF: 0 rosuvastatin 5 mg Tablet 5 mg PO HS RF: 0 furosemide 40 mg tablet 20 mg PO 4XWK RF: 0 metformin 500 mg tablet 500 mg PO BIDM RF: 0 Fiber Laxative (methylcellulo) 500 mg Tablet 500 mg PO QAM RF: 0 multivitamin Tablet 1 tab PO QDD RF: 0 furosemide [Lasix] 40 mg tablet 40 mg PO 3XWK RF: 0 potassium chloride [Klor-Con 10] 10 mEq tablet extended release 10 meq PO QDL RF: 0 clopidogrel [Plavix] 75 mg tablet 75 mg PO HS RF: 0 aspirin [Aspir-Low] 81 mg Tablet,Delayed Release (Dr/Ec) 81 mg PO HS RF: 0 dicyclomine 20 mg tablet 20 mg PO Q6 PRN (Reason: Abdominal Discomfort) RF: 0 nitroglycerin [Nitrostat] 0.4 mg tablet, sublingual 0.4 mg Sublingual UD PRN (Reason: Chest Pain) RF: 0 losartan [Cozaar] 100 mg tablet 100 mg PO QAM RF: 0 sertraline [Zoloft] 50 mg tablet 75 mg PO .QDL.HS RF: 0 carvedilol [Coreg] 12.5 mg tablet 18.75 mg PO BIDM RF: 0 levetiracetam [Keppra XR] 500 mg tablet extended release 24 hr 500 mg PO BID RF: 0 hydralazine 25 mg tablet 12.5 mg PO TIDM RF: 0 Discharge Problem: Closed hip fracture Qualifiers: Encounter type: initial encounter Laterality: right Qualified Code(s): S72.001A - Fracture of unspecified part of neck of right femur, initial encounter for closed fracture Fall Qualifiers: Encounter type: initial encounter Qualified Code(s): W19.XXXA - Unspecified fall, initial encounter
[2020-02-01] MEDS ORDERED: MoRPHine SULFATE 2 MG/ML CARP IV STA (22:26)
--- NOTE | 2020-02-01 22:26 | History & Physical Report ---
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 coronary artery disease s/p CABG, hx PVD SSS sp PPM, paced rhythm HTN, elevated secondary discomfort hyperlipidemia on statin Rx colorectal CA status post surgery status post chemoradiation DM2 on oral medications, well-controlled as of recent outpatient hemoglobin A1c of 6.09 June 2019 history of seizure disorder, stable on on Keppra past hx DVT as per records chronic anemia, hemoglobin at baseline Episodic thrombocytopenia Diarrhea possibly secondary to home laxative fiber rule out C. difficile PCU for elevated BP and cardiac monitoring given mild congestion on CXR Orthopedics consult RE right hip fracture ([place] [facility] [place] Continue aspirin, hold Plavix for now in anticipation of surgery. Cardiology consult to optimize cardiac status prior to OR if surgery recommended and px/family agreeable to attendant procedural risks. Facilitate home diuretics inpatient. Analgesia, facilitate home BP meds Stool C. difficile, hold home laxative fiber for now ISS BG goal [id number], carb count coverage, update hemoglobin A1c DVT prophylaxis. SCDs RE possible surgery Recommend pharmacologic anticoagulation once bleeding risk is deemed to be minimal and negligible pending Orthopedics evaluation. Full code as per , Ms. Sylvie Quan. She requests updates from providers through [id number]. Text document was generated using [employer] voice recognition software. It may contain grammatical or spelling errors. Kindly contact undersigned for clarification of any documentation item in question. ADDENDUM : Case discussed [place]. 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 He recommends preparation for possible surgery in a.m. pending discussion with px/family. Agrees with holding Plavix for now. N.p.o. after midnight. History of Present Illness Primary Care Provider: Xavi Moreno MD History obtained from patient, family, and records. Patient is a fair historian. Medical history significant for chronic systolic heart failure secondary to ischemic cardiomyopathy (EF of 40-44%, TTE 2019), coronary artery disease s/p CABG, SSS sp PPM, HTN, hx CVA, PVD, hyperlipidemia, colorectal CA status post surgery status post chemoradiation, DM2 on oral medications, history of seizure disorder on Keppra, history DVT as per records, chronic anemia baseline hemoglobin 12-13, chronic thrombocytopenia. Recent confinement December 2018 for TIA. This afternoon patient noted worsening of chronic right lower extremity weakness which led patient to fall down landing on his right side. Patient experienced achy right hip pain, unable to get up. No chest pain, no unusual shortness of breath, no head trauma. Patient found by . As per , complaints of worsening right-sided weakness not a new complaint for patient. Stroke alert called upon evaluation at the ER. Patient not felt to be a TPA candidate due to deficit likely being chronic as per [facility] tele-stroke specialist. Medical History as above Outpatient ICD interrogation scheduled last month by [facility] [place] dental biller deferred and rescheduled to March 2020 due to COVID-19 precautions as per . Surgical History : CABG, vascular procedures, pacemaker, partial colectomy, appendectomy, hernia repair, TA, skin graft surgery, shoulder surgery, urologic procedure, Family History : Multiple myeloma, diabetes, heart disease, breast cancer, prostate cancer Personal/Social history : Non-smoker, no EtOH intake, lives with Allergies Allergy/AdvReac Type Severity Reaction Status Date / Time tramadol Allergy Severe seizures Verified 02/01/20 20:54 iodine Allergy Intermediate airway Verified 02/01/20 20:54 edema oxycodone Allergy Intermediate "itchiness Verified 02/01/20 20:54 all over" codeine AdvReac Intermediate hallucinations, Verified 02/01/20 20:54 depression ANCELMO Inhibitors AdvReac Mild COUGHING Verified 02/01/20 20:54 felodipine AdvReac Mild cough Verified 02/01/20 20:54 Home Medications Home Medications Medication Instructions Recorded Confirmed Type aspirin [Aspir-Low] 81 mg PO HS 09/07/18 02/01/20 History carvedilol [Coreg] 18.75 mg PO BIDM 09/07/18 02/01/20 History clopidogrel [Plavix] 75 mg PO HS 09/07/18 02/01/20 History dicyclomine 20 mg PO Q6 PRN 09/07/18 02/01/20 History furosemide [Lasix] 40 mg PO 3XWK 09/07/18 02/01/20 History levetiracetam [Keppra XR] 500 mg PO BID 09/07/18 02/01/20 History losartan [Cozaar] 100 mg PO QAM 09/07/18 02/01/20 History multivitamin 1 tab PO QDD 09/07/18 02/01/20 History nitroglycerin [Nitrostat] 0.4 mg SUBLINGUAL UD PRN 09/07/18 02/01/20 History potassium chloride [Klor-Con 10] 10 meq PO QDL 09/07/18 02/01/20 History sertraline [Zoloft] 75 mg PO .QDL.HS 09/07/18 02/01/20 History magnesium 400 mg PO QDL 11/11/18 02/01/20 History rosuvastatin 5 mg PO HS 11/14/18 02/01/20 History hydralazine 12.5 mg PO TIDM 12/25/18 02/01/20 History furosemide 20 mg PO 4XWK 02/01/20 02/01/20 History metformin 500 mg PO BIDM 02/01/20 02/01/20 History methylcellulose (laxative) [Fiber 500 mg PO QAM 02/01/20 02/01/20 History Laxative (methylcellulo)] Past Med/Surg History Medical History AV block (Chronic) "s/p pacemaker" Benign prostatic hyperplasia (Chronic) Carotid disease, bilateral (Chronic) "asymptomatic" Coronary artery disease (Chronic) "s/p ND" Diabetes mellitus, type II (Chronic) Dyslipidemia (Chronic) GERD (gastroesophageal reflux disease) (Chronic) History of skin cancer (Chronic) Hypertension (Chronic) Left bundle branch block (Chronic) Malignant neoplasm of rectum (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/15) "Rectal bleeding Status post colonoscopy and biopsy 04/02/2015 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 Status post endoscopic ultrasound stage [id number] Neoadjuvant radiation and chemotherapy Chemotherapy comprised of Xeloda Status post completion of radiation therapy 06/24/2015 received 5460 cGy Status post rectosigmoid resection 08/27/2015 ypT2 ypN0 M0 Status post ileostomy closure 04/14/2016, gait by small bowel obstruction and then hemorrhage Status post CVA and then slow wound healing" On 01/20/16 16:12 Celeste Burrell wrote "Rectal bleeding Status post colonoscopy and biopsy 04/02/2015 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 Status post endoscopic ultrasound stage [id number] Neoadjuvant radiation and chemotherapy Chemotherapy comprised of Xeloda Status post completion of radiation therapy 06/24/2015 received 5460 cGy Status post rectosigmoid resection 08/27/2015 ypT2 ypN0 M0" On 07/02/15 10:41 Celeste Burrell wrote "Rectal bleeding Status post colonoscopy and biopsy 04/02/2015 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 Stephens [facility] [place] 2001 DIAZ-LAD, SVG left circumflex" Status post shoulder surgery (Chronic) Status post tonsillectomy (Chronic) Family History Other Family history non-contributory Social History Preferred Language: Nepali Communication Ability: Impaired Process Trainer Required: No Beliefs That Will Affect Care: None Current Living Situation: Spouse Feels Safe at Home: Yes Safety Concerns: Feels Safe At This Time Smoking Status: Smoker, status unknown Hx Alcohol Use: No Hx Substance Use: No Review of Systems Review of Systems: As per HPI, all 10 systems reviewed, nonbloody loose stools without abdominal pain as per patient , all other ROS negative Physical Exam Physical Exam: GENERAL: Uncomfortable, no respiratory distress, dysarthric (chronic), oriented to month and year SKIN: Pallor , warm HEENT: Alopecia, bespectacled, pink palpebral conjunctivae, no ptosis, chronic subtle facial asymmetry, dry buccal mucosa NECK : Supple, no tenderness CHEST : CTA, no tenderness HEART : RRR, systolic murmur ABDOMEN: Some distention, healed incisional scars, nontender EXTREMITIES : Right hip rotation, right hip tenderness, minimal LE swelling NEUROLOGIC : Coherent, dysarthric, chronic subtle facial asymmetry, MMT BUE 4/5; RLE 1/5 (limited due to pain), LLE 3/5 Results & Data Results & Data ([facility]) Vital Signs (Past 12 Hours) Vital Signs Pulse Resp BP Pulse Ox 02/01/20 21:00 77 23 170/79 H 93 02/01/20 20:36 72 25 H 179/119 H 94 02/01/20 20:17 79 18 168/79 H 93 Laboratory Results Laboratory Results WBC 6.71 K/uL (4.8-10.8) 02/01/20 20:43 RBC 4.08 M/uL (4.7-6.1) L 02/01/20 20:43 Hgb 12.2 g/dL (14.0-18.0) L 02/01/20 20:43 Hct 38.2 % (42-52) L 02/01/20 20:43 MCV 93.6 fL (80-100) 02/01/20 20:43 MCH 29.9 pg (25-34) 02/01/20 20:43 MCHC 31.9 g/dL (32-36) L 02/01/20 20:43 RDW Std Deviation 46.6 fL (36.4-46.3) H 02/01/20 20:43 RDW Coeff of Arabella 13.7 % (11.5-14.5) 02/01/20 20:43 Plt Count 134 K/uL (130-400) 02/01/20 20:43 MPV 10.2 fL (7.4-10.4) 02/01/20 20:43 Immature Gran % (Auto) 0.6 % 02/01/20 20:43 Neut % (Auto) 79.8 % 02/01/20 20:43 Lymph % (Auto) 14.0 % 02/01/20 20:43 [place] % (Auto) 5.1 % 02/01/20 20:43 Eos % (Auto) 0.4 % 02/01/20 20:43 Baso % (Auto) 0.1 % 02/01/20 20:43 Immature Gran # (Auto) 0.04 K/uL (0.00-0.02) H 02/01/20 20:43 Neut # (Auto) 5.35 K/uL (1.4-6.5) 02/01/20 20:43 Lymph # (Auto) 0.94 K/uL (1.2-3.4) L 02/01/20 20:43 [place] # (Auto) 0.34 K/uL (0.11-0.59) 02/01/20 20:43 Eos # (Auto) 0.03 K/uL (0-0.5) 02/01/20 20:43 Baso # (Auto) 0.01 K/uL (0-0.2) 02/01/20 20:43 PT 11.7 Seconds (9.0-12.0) 02/01/20 20:43 INR 1.1 (0.9-1.1) 02/01/20 20:43 APTT 24.5 Seconds (21.0-31.0) 02/01/20 20:43 PTT Ratio 0.9 02/01/20 20:43 Sodium 139 mmol/L (136-145) 02/01/20 20:43 Potassium 4.4 mmol/L (3.5-5.1) 02/01/20 20:43 Chloride 107 mmol/L (98-107) 02/01/20 20:43 Carbon Dioxide 29 mmol/L (21-32) 02/01/20 20:43 Anion Gap 4.0 (3-11) 02/01/20 20:43 BUN 18 mg/dl (7-18) 02/01/20 20:43 Creatinine 1.24 mg/dl (0.6-1.4) 02/01/20 20:43 Est Cr Clr Drug Dosing 52.2 ml/min 02/01/20 20:43 Est GFR ( Amer) 63.2 02/01/20 20:43 Est GFR (Non-Af Amer) 54.6 02/01/20 20:43 BUN/Creatinine Ratio 14.3 (10-20) 02/01/20 20:43 Glucose 180 mg/dl (70-99) H 02/01/20 20:43 POC Glucose 174 mg/dl (70-99) H 02/01/20 20:41 Calcium 9.0 mg/dl (8.5-10.1) 02/01/20 20:43 Magnesium 2.2 mg/dl (1.8-2.4) 02/01/20 20:43 Total Bilirubin 0.5 mg/dl (0.2-1) 02/01/20 20:43 AST 31 U/L (15-37) 02/01/20 20:43 ALT 38 U/L (12-78) 02/01/20 20:43 Alkaline Phosphatase 122 U/L (45-117) H 02/01/20 20:43 Troponin I < 0.015 ng/ml (0-0.045) 02/01/20 20:43 Total Protein 7.8 gm/dl (6.4-8.2) 02/01/20 20:43 Albumin 3.7 gm/dl (3.4-5.0) 02/01/20 20:43 Globulin 4.1 gm/dl (2.5-4.0) H 02/01/20 20:43 Albumin/Globulin Ratio 0.9 (0.9-2) 02/01/20 20:43 Blood Type O Positive 02/01/20 20:43 Antibody Screen NEGATIVE 02/01/20 20:[address] head: 1. Old infarcts in the left basal ganglia and associated chronic small vessel ischemic change. Findings are unchanged. 2. No acute intracranial pathology. Hip pelvis x-ray: 1. Basicervical right femoral neck fracture with mild proximal displacement and varus angulation. 2. Severe osteopenia. Chest x-ray : 1. Right humeral neck fracture new from prior exam, presumably acute in the setting of underlying osteopenia. 2. Cardiomegaly with chronic volume overload and congestive change. This is similar to prior. 3. Chronic left pleural effusion or pleural thickening. 4. Chronic left basilar opacity, possibly atelectasis. EKG as per my interpretation : Rate 80, paced rhythm (1) Closed hip fracture Encounter type: initial encounter Laterality: right Qualified Code(s): S72.001A - Fracture of unspecified part of neck of right femur, initial encounter for closed fracture
[2020-02-01] MEDS ORDERED: GLUCOSE 40% GEL 15 GM TUBE PO PRN (23:25)
[2020-02-01] MEDS ORDERED: CARBOHYDRATES FOR HYPOGLYCEMIA PO PRN (23:25)
[2020-02-01] MEDS ORDERED: NALOXONE HCL 0.4 MG/1 ML VIAL/CARP IV PRN (23:25)
[2020-02-01] MEDS ORDERED: SERTRALINE HCL 50 MG TABLET PO SCH (23:25)
[2020-02-01] MEDS ORDERED: HYDROmorphone INJ 0.5 MG/0.5 ML SYR IV PRN (23:25)
[2020-02-01] MEDS ORDERED: bisacodyL 10 MG SUPP PR PRN (23:25)
[2020-02-01] MEDS ORDERED: NITROGLYCERIN SL 0.4 MG/TAB TAB SL PRN (23:25)
[2020-02-01] MEDS ORDERED: ACETAMINOPHEN 325 MG TAB PO PRN (23:25)
[2020-02-01] MEDS ORDERED: DEXTROSE 50% 50 ML SYRINGE IV PRN (23:25)
[2020-02-01] MEDS ORDERED: PROMETHAZINE HCL 12.5 MG in SODIUM CHLORIDE 0.9% 50 ML IV PRN (23:25)
[2020-02-01] MEDS ORDERED: GLUCAGON FOR INJ 1 MG VIAL SQ PRN (23:25)
[2020-02-01] MEDS ORDERED: GLUCOSE 10 TABS/TUBE PO PRN (23:25)
[2020-02-02] MEDS: ROSUVASTATIN CALCIUM 5 MG TAB PO SCH ×2 (01:08→20:10)
[2020-02-02] MEDS: carvediloL 12.5 MG TAB PO SCH ×3 (01:09→16:52)
[2020-02-02] MEDS: levETIRAcetam 500 MG TAB PO SCH ×3 (01:10→20:10)
[2020-02-02] MEDS: INSULIN ASPART 100 UNITS/ML 3 ML PEN SC SCH ×4 (01:11→18:30)
[2020-02-02] MEDS ORDERED: INSULIN GLARGINE SOLOSTAR 100 UNITS/ML 3 ML PEN SC STA (01:35)
[2020-02-02 06:32] LABS: Basophils # (auto) 0.01 K/uL (0-0.2); Basophils % (auto) 0.1 %; Eosinophils # (auto) 0.01 K/uL (0-0.5); Eosinophils % (auto) 0.1 %; Hematocrit (blood only) 35.6 % (42-52); Hemoglobin 11.5 g/dL (14.0-18.0); Immature Granulocytes # (auto) 0.03 K/uL (0.00-0.02); Immature Granulocytes % (auto) 0.3 %; Lymphocytes # (auto) 1.22 K/uL (1.2-3.4); Lymphocytes % (auto) 13.5 %; Mean Corpuscular Hgb Conc 32.3 g/dL (32-36); Mean Platelet Volume 9.3 fL (7.4-10.4); Monocytes # (auto) 0.55 K/uL (0.11-0.59); Monocytes % (auto) 6.1 %; Neutrophils # (auto) 7.19 K/uL (1.4-6.5); Neutrophils % (auto) 79.9 %; Platelet Count 114 K/uL (130-400); RDW Coefficient of Variation 13.7 % (11.5-14.5); RDW Standard Deviation 46.3 fL (36.4-46.3); Red Blood Count 3.83 M/uL (4.7-6.1); White Blood Count 9.01 K/uL (4.8-10.8)
[2020-02-02 07:04] LABS: BUN Creatinine Ratio 16.5 (10-20); Calcium 9.2 mg/dl (8.5-10.1); Creatinine Clr Calc Pharmacy 47.1 ml/min; Est GFR (African American) 56.6; Est GFR (Non-African American) 48.8; Potassium 4.4 mmol/L (3.5-5.1)
--- NOTE | 2020-02-02 10:05 | Cardiology Consultation ---
Date of Consultation February 02, 2020 Assessment & Plan (1) Preop cardiovascular exam: Patient is an 79-year-old male with significant morbidities as outlined above who suffered a mechanical fall and subsequent hip fracture, humeral fracture. Patient currently compensated without angina or congestive heart failure by exam in comparison to prior studies. Operative risk is elevated given underlying morbidities and recent history of possible TIA and generalized frailty. However nonsurgical management high risk concern. Discussed case in detail with his who is aware of operative and nonoperative risks Surgery involved. Agree with holding clopidogrel but would resume promptly pos top. Being used for neurologic issues. (2) Ischemic cardiomyopathy: Cardiac clinically stable without signs of acute heart failure or deterioration (3) Biventricular cardiac pacemaker in situ: (4) Closed hip fracture: (5) History of CVA (cerebrovascular accident): Patient currently without acute complaint has had neurologic decline in setting of acute illnesses and surgeries and would expect with current complaints possible delirium or confusion History of Present Illness Reason for Consultation: Hip fracture, preoperative evaluation Requesting Physician: Dr. Ruchi Cano Attending Physician: Ruchi Cano, DO History of Present Illness Patient is an 79-year-old male with complex cardiac history and ongoing issues which include 1. Atherosclerotic coronary disease, status post coronary bypass grafting March of 2002, receiving DIAZ graft to LAD, saphenous vein graft to left circumflex. 2. Recurrent ischemia with drug-eluting stent placed in the distal right coronary artery May of 2014 with patent grafts. 3. Severe cardiomyopathy, past ejection fraction LVEF 15-20% with a EF improved 40% following biventricular pacemaker insertion 4. Prior history of sick sinus syndrome status post dual-chamber pacemaker insertion. 5. Status post July 05, 2017 device upgrade to a biventricular pacemaker without ICD (patient declined) 6. Carotid occlusive disease. 7. Hypertension. 8. Hyperlipidemia. 9. Colorectal carcinoma status post low anterior resection 08/25/2015 after chemo and radiation therapy. 10. Hospitalization at [facility] on 11/29/2015 with new onset seizure. No overt cardiac decompensation. 11. Reversal of ileostomy on 04/14/2016 complicated by bowel obstruction, perianastomotic hemorrhage requiring 3 units of packed red cells and discontinuation of antiplatelet therapy. 12. Acute left intracerebral artery stroke with complete thrombosis of the left internal carotid artery April of 2016, recurrent TIAs most recent December 2019 13. Type II diabetes mellitus Patient is referred for preoperative evaluation after patient suffered a mechanical fall and subsequent hip and right humeral fracture. Patient notes no syncope or near syncope no dizziness or lightheadedness. No tachypalpitations chest pain or worsening shortness of breath. Notes difficulties with chronic gait instability and ambulation with walker. Has had difficulties with chronic diarrhea with resultant urgency at times. No acute changes in medications. No difficulty swallowing. No recent fevers or infections. No acute weight gain or worsening edema No recent neurologic events per patient and . Short-term memory issues an issue but no acute focal deficits. Allergies Allergy/AdvReac Type Severity Reaction Status Date / Time tramadol Allergy Severe seizures Verified 02/01/20 20:54 iodine Allergy Intermediate airway Verified 02/01/20 20:54 edema oxycodone Allergy Intermediate "itchiness Verified 02/01/20 20:54 all over" codeine AdvReac Intermediate hallucinations, Verified 02/01/20 20:54 depression ANCELMO Inhibitors AdvReac Mild COUGHING Verified 02/01/20 20:54 felodipine AdvReac Mild cough Verified 02/01/20 20:54 Home Medications Home Medications Medication Instructions Recorded Confirmed Type aspirin [Aspir-Low] 81 mg PO HS 09/07/18 02/01/20 History carvedilol [Coreg] 18.75 mg PO BIDM 09/07/18 02/01/20 History clopidogrel [Plavix] 75 mg PO HS 09/07/18 02/01/20 History dicyclomine 20 mg PO Q6 PRN 09/07/18 02/01/20 History furosemide [Lasix] 40 mg PO 3XWK 09/07/18 02/01/20 History levetiracetam [Keppra XR] 500 mg PO BID 09/07/18 02/01/20 History losartan [Cozaar] 100 mg PO QAM 09/07/18 02/01/20 History multivitamin 1 tab PO QDD 09/07/18 02/01/20 History nitroglycerin [Nitrostat] 0.4 mg SUBLINGUAL UD PRN 09/07/18 02/01/20 History potassium chloride [Klor-Con 10] 10 meq PO QDL 09/07/18 02/01/20 History sertraline [Zoloft] 75 mg PO .QDL.HS 09/07/18 02/01/20 History magnesium 400 mg PO QDL 11/11/18 02/01/20 History rosuvastatin 5 mg PO HS 11/14/18 02/01/20 History hydralazine 12.5 mg PO TIDM 12/25/18 02/01/20 History furosemide 20 mg PO 4XWK 02/01/20 02/01/20 History metformin 500 mg PO BIDM 02/01/20 02/01/20 History methylcellulose (laxative) [Fiber 500 mg PO QAM 02/01/20 02/01/20 History Laxative (methylcellulo)] Patient History Medical History AV block (Chronic) "s/p pacemaker" Benign prostatic hyperplasia (Chronic) Carotid disease, bilateral (Chronic) "asymptomatic" Coronary artery disease (Chronic) "s/p [place]" Diabetes mellitus, type II (Chronic) Dyslipidemia (Chronic) GERD (gastroesophageal reflux disease) (Chronic) History of skin cancer (Chronic) Hypertension (Chronic) Left bundle branch block (Chronic) Malignant neoplasm of rectum (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/15) "Rectal bleeding Status post colonoscopy and biopsy 04/02/2015 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 Status post endoscopic ultrasound stage [id number] Neoadjuvant radiation and chemotherapy Chemotherapy comprised of Xeloda Status post completion of radiation therapy 06/24/2015 received 5460 cGy Status post rectosigmoid resection 08/27/2015 ypT2 ypN0 M0 Status post ileostomy closure 04/14/2016, gait by small bowel obstruction and then hemorrhage Status post CVA and then slow wound healing" On 01/20/16 16:12 Celeste Burrell wrote "Rectal bleeding Status post colonoscopy and biopsy 04/02/2015 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 Status post endoscopic ultrasound stage [id number] Neoadjuvant radiation and chemotherapy Chemotherapy comprised of Xeloda Status post completion of radiation therapy 06/24/2015 received 5460 cGy Status post rectosigmoid resection 08/27/2015 ypT2 ypN0 M0" On 07/02/15 10:41 Celeste Burrell wrote "Rectal bleeding Status post colonoscopy and biopsy 04/02/2015 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 [facility] [place] DIAZ[place] SVG left circumflex" Status post shoulder surgery (Chronic) Status post tonsillectomy (Chronic) Family History Other Family history non-contributory Social History Preferred Language: Polish Communication Ability: Effective Cell Cleaner Required: No Beliefs That Will Affect Care: None Current Living Situation: Spouse Feels Safe at Home: Yes Safety Concerns: Feels Safe At This Time Smoking Status: Smoker, status unknown Hx Alcohol Use: No Hx Substance Use: No Physical Exam Constitutional: WD/WN, vitals as above Eyes: PERRL, conjunctivae normal, anicteric sclerae ENMT: external ear and nose normal, oropharynx normal Neck: trachea midline, no thyromegaly Respiratory: normal respiratory effort, lungs clear to auscultation Cardiovascular: Rate/Rhythm: regular rate and regular rhythm Heart Sounds: normal S1 and normal S2; no gallop and no murmur Palpation: normal PMI Vessels: normal carotid upstroke and radial pulses present; no JVD and no carotid bruit Extremities: no edema Chest (Breasts): Chest: + pacemaker Gastrointestinal (Abdomen): Percussion/Palpation: abdomen soft; abdomen nontender Musculoskeletal: no cyanosis or clubbing, extremities motor strength 5/5 Skin: no rashes, warm and dry Neurologic: PERRL, EOMI, accommodation nl, no face palsy, no dysarthria Psychiatric: A+Ox3, euthymic affect Results & Data ([facility]) Vital Signs (Past 12 Hours) Vital Signs Temp Pulse Pulse Resp BP Pulse Ox 02/02/20 09:51 68 02/02/20 07:00 36.2 C L 60 20 112/68 99 02/02/20 04:00 36.6 C 75 18 113/69 96 02/01/20 23:35 36.9 C 88 20 160/77 H 95 02/01/20 23:25 87 02/01/20 22:58 78 17 178/89 H 93 Laboratory Results Laboratory Results - last 24 hr 02/01/20 02/01/20 02/01/20 20:41 20:43 20:43 WBC 6.71 RBC 4.08 L Hgb 12.2 L Hct 38.2 L MCV 93.6 MCH 29.9 MCHC 31.9 L RDW Std Deviation 46.6 H RDW Coeff of Arabella 13.7 Plt Count 134 MPV 10.2 Immature Gran % (Auto) 0.6 Neut % (Auto) 79.8 Lymph % (Auto) 14.0 Maverick % (Auto) 5.1 Eos % (Auto) 0.4 Baso % (Auto) 0.1 Immature Gran # (Auto) 0.04 H Neut # (Auto) 5.35 Lymph # (Auto) 0.94 L Maverick # (Auto) 0.34 Eos # (Auto) 0.03 Baso # (Auto) 0.01 PT INR APTT PTT Ratio Sodium Potassium Chloride Carbon Dioxide Anion Gap BUN Creatinine Est Cr Clr Drug Dosing Est GFR ( Amer) Est GFR (Non-Af Amer) BUN/Creatinine Ratio Glucose POC Glucose 174 H Calcium Magnesium Total Bilirubin AST ALT Alkaline Phosphatase Troponin I Total Protein Albumin Globulin Albumin/Globulin Ratio Blood Type O Positive Antibody Screen NEGATIVE 02/01/20 02/01/20 02/02/20 20:43 20:43 00:49 WBC RBC Hgb Hct MCV MCH MCHC RDW Std Deviation RDW Coeff of Arabella Plt Count MPV Immature Gran % (Auto) Neut % (Auto) Lymph % (Auto) Maverick % (Auto) Eos % (Auto) Baso % (Auto) Immature Gran # (Auto) Neut # (Auto) Lymph # (Auto) Maverick # (Auto) Eos # (Auto) Baso # (Auto) PT 11.7 INR 1.1 APTT 24.5 PTT Ratio 0.9 Sodium 139 Potassium 4.4 Chloride 107 Carbon Dioxide 29 Anion Gap 4.0 BUN 18 Creatinine 1.24 Est Cr Clr Drug Dosing 52.2 Est GFR ( Amer) 63.2 Est GFR (Non-Af Amer) 54.6 BUN/Creatinine Ratio 14.3 Glucose 180 H POC Glucose 179 H Calcium 9.0 Magnesium 2.2 Total Bilirubin 0.5 AST 31 ALT 38 Alkaline Phosphatase 122 H Troponin I < 0.015 Total Protein 7.8 Albumin 3.7 Globulin 4.1 H Albumin/Globulin Ratio 0.9 Blood Type Antibody Screen 02/02/20 02/02/20 02/02/20 06:22 06:22 06:30 WBC 9.01 RBC 3.83 L Hgb 11.5 L Hct 35.6 L MCV 93.0 MCH 30.0 MCHC 32.3 RDW Std Deviation 46.3 RDW Coeff of Arabella 13.7 Plt Count 114 L MPV 9.3 Immature Gran % (Auto) 0.3 Neut % (Auto) 79.9 Lymph % (Auto) 13.5 Maverick % (Auto) 6.1 Eos % (Auto) 0.1 Baso % (Auto) 0.1 Immature Gran # (Auto) 0.03 H Neut # (Auto) 7.19 H Lymph # (Auto) 1.22 Maverick # (Auto) 0.55 Eos # (Auto) 0.01 Baso # (Auto) 0.01 PT INR APTT PTT Ratio Sodium 139 Potassium 4.4 Chloride 107 Carbon Dioxide 27 Anion Gap 5.0 BUN 22 H Creatinine 1.36 Est Cr Clr Drug Dosing 47.1 Est GFR ( Amer) 56.6 Est GFR (Non-Af Amer) 48.8 BUN/Creatinine Ratio 16.5 Glucose 226 H POC Glucose 231 H Calcium 9.2 Magnesium Total Bilirubin AST ALT Alkaline Phosphatase Troponin I Total Protein Albumin Globulin Albumin/Globulin Ratio Blood Type Antibody Screen 02/02/20 02/02/20 07:21 11:17 WBC RBC Hgb Hct MCV MCH MCHC RDW Std Deviation RDW Coeff of Arabella Plt Count MPV Immature Gran % (Auto) Neut % (Auto) Lymph % (Auto) Maverick % (Auto) Eos % (Auto) Baso % (Auto) Immature Gran # (Auto) Neut # (Auto) Lymph # (Auto) Maverick # (Auto) Eos # (Auto) Baso # (Auto) PT INR APTT PTT Ratio Sodium Potassium Chloride Carbon Dioxide Anion Gap BUN Creatinine Est Cr Clr Drug Dosing Est GFR ( Amer) Est GFR (Non-Af Amer) BUN/Creatinine Ratio Glucose POC Glucose 216 H 142 H Calcium Magnesium Total Bilirubin AST ALT Alkaline Phosphatase Troponin I Total Protein Albumin Globulin Albumin/Globulin Ratio Blood Type Antibody Screen Diagnostic Findings Echocardiogram 09/12/2019 The left ventricular cavity size is normal. The wall thickness is mildly increased in segments with normal wall motion. The inferior wall and inferoseptal wall are relatively thinned and akinetic, consistent with previous infarction. Otherwise, left ventricular systolic wall motion is normal. The qualitative LV ejection fraction is 40-44% (mildly reduced). The left atrium is normal sized (< 35 ml/m^2). The left ventricular diastolic function is mildly abnormal (grade I). Compared with previous study dated 08/22/2018, no significant change noted. (1) Closed hip fracture Encounter type: initial encounter Laterality: right Qualified Code(s): S72.001A - Fracture of unspecified part of neck of right femur, initial encounter for closed fracture
[2020-02-02] MEDS: INSULIN GLARGINE SOLOSTAR 100 UNITS/ML 3 ML PEN SQ SCH ×2 (11:15→20:11)
--- NOTE | 2020-02-02 12:11 | Electrocardiogram Report ---
Test Reason : Blood Pressure : / mmHG Vent. Rate : 080 BPM Atrial Rate : 080 BPM P-R Int : 000 ms QRS Dur : 138 ms QT Int : 430 ms P-R-T Axes : 013 -63 105 degrees QTc Int : 495 ms Poor data quality, interpretation may be adversely affected Ventricular-paced rhythm Abnormal ECG When compared with ECG of 27-DEC-2018 07:33, Vent. rate has increased BY 11 BPM Confirmed by Ziggy Cassidy ([id number]) on 02/02/2020 12:11:17 PM Referred By: REFERRED SELF Confirmed By:Ziggy Cassidy
--- NOTE | 2020-02-02 12:13 | Consultation Report ---
DATE OF CONSULTATION: 02/02/2020 HISTORY OF PRESENT ILLNESS: This is an 79-year-old gentleman who sustained a mechanical fall on his right side. This occurred on 02/01/2020. He had a painful right hip with inability to ambulate. EMS was contacted and he had no head trauma and no shortness of breath. He is post-stroke and has had weakness on his right side ongoing. He is transported to [facility]. He was evaluated. Radiographs were obtained noting an intertrochanteric right hip fracture, and he was then admitted to the hospitalist service with orthopedics to consult. He has also been seen by the employee development manager as he has an ongoing history of stroke, TIA, and chronic systolic heart failure with ischemic cardiomyopathy with low ejection fraction. No other new complaints. PAST MEDICAL HISTORY: AV block - chronic, benign prostatic hyperplasia, carotid disease, bilateral coronary artery disease, diabetes mellitus type 2, dyslipidemia, GERD, history of skin cancer, hypertension, left bundle branch block, malignant neoplasm of the rectum, history of rectal bleeding and chemotherapy, stroke. PAST SURGICAL HISTORY: Ileostomy; colon resection, low AP; cardiac pacemaker procedure, generator change; cholecystectomy; coronary artery bypass grafting, DIAZ, LAD, SVG, left circumflex in [address] at [facility] [address]; shoulder surgery; T and A; multiple colon procedures as noted in the medical record; chemotherapy. ALLERGIES: TRAMADOL - SEVERE SEIZURES, IODINE IV WITH AIRWAY EDEMA, OXYCODONE WITH ITCHINESS, CODEINE WITH HALLUCINATIONS AND DEPRESSION, ANCELMO INHIBITORS WITH COUGHING AND FELODIPINE WITH COUGH. MEDICATIONS: Please note the medication list in the medical record, note to Plavix 75 mg p.o. at bedtime. SOCIAL HISTORY: Lives with his spouse. Lives at home. He has a history of smoking, does not smoke currently. Denies tobacco, alcohol use or drug use. He is retired. PHYSICAL EXAMINATION: This is an 79-year-old gentleman who is alert and oriented x3. Speech is slightly dysarthric. His ideation is normal. No acute distress. He has obvious discomfort related to his right hip fracture. Currently, relatively comfortable while lying in bed. Examination of right hip demonstrates right hip tenderness, shortening and rotation of the hip. Dorsalis pedis and posterior tibialis pulses are palpable. Feet are slightly warm. Pain with log roll and rotation of the right hip. Limited due to discomfort. Radiographs demonstrate a low basicervical/intertrochanteric fracture with comminution of the greater trochanter down to the level of the intertrochanteric line, right hip osteopenia. Laboratories are reviewed. IMPRESSION: Right angulated basicervical/intertrochanteric hip fracture, right, status post mechanical fall, multiple medical comorbidities. RECOMMENDATION: The patient will be scheduled for surgery tomorrow. Would recommend moving ahead with surgery due to risk of exposure within the hospital balanced with giving another day for the Plavix to be metabolized without any further Plavix dosages. Optimized per medical and cardiology service. Understood increased risk profile due to medical comorbidities. The patient understands this. N.p.o. after midnight, may have a medically approved diet now. OR has been notified. The patient will be scheduled for tomorrow. Nonweightbearing in the right lower extremity. TEDs and SCDs while in bed. Not necessary for traction at this time, ice to the affected hip. We will follow with you. Thank you for the opportunity to consult in the care of this patient.
[2020-02-02] MEDS: SERTRALINE HCL 50 MG TABLET PO SCH ×2 (12:42→20:11)
[2020-02-02] MEDS: POTASSIUM CHLORIDE 10 MEQ TABCR PO SCH (12:43)
[2020-02-02] MEDS: FUROSEMIDE 20 MG TAB PO SCH (12:44)
[2020-02-02] MEDS ORDERED: MoRPHine SULFATE 4 MG/ML 1 ML CARP\\VIAL IV PRN (13:48)
--- NOTE | 2020-02-02 13:51 | Hospitalist Progress Note ---
Date of Service February 02, 2020 Assessment & Plan (1) Closed hip fracture: 79 year old male with history of CAD, CABG, Ischemic Cardiomyopathy EF 40%, SSS s/p pM, DM, HTN, CVA, PVD, Seizure, History of DVT presenting with right hip pain after a mechanical fall. 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 Basicervical right femoral neck fracture with mild proximal displacement and varus angulation. 2. Severe osteopenia. 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 SYSTOLIC CONGESTIVE HEART FAILURE, ISCHEMIC CARDIOMYOPATHY (EF of 40- 44%, TTE 2018) -- euvolemic at present HOLD daily Furosemide to prevent dehydration, resume accordingly postoperatively HISTORY OF CAD, CABG -- no cardiac symptoms continue ASA HOLD Plavix, but resume as soon as possible once hemostasis is stable per Ortho SICK SINUS SYNDROME S/P PPM -- no issues at this time HYPERTENSION -- stable overall DM 2 -- HOLD metformin Insulin Lantus and ISS ordered -- monitor BSGs HISTORY OF DVT -- SCDs start Lovenox SC when hemostasis achieved per Ortho, patient is HIGH risk for venous thromboembolism as he has a history of DVT 2018 HISTORY OF CVA -- per [facility] notes 2019: He has known right internal carotid stenosis 50% to 69%; He 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 He has mild expressive language dysfunction, moderate dysarthria, flattening of the right nasolabial fold, and a mild right hemiparesis. His gait is with a walker, but steady. -- neuro exam seems to be baseline HISTORY OF SEIZURE -- stable, on Keppra OTHER CHRONIC ISSUES: hyperlipidemia on statin Rx colorectal CA status post surgery status post chemoradiation chronic anemia, hemoglobin at baseline Episodic thrombocytopenia DVT prophylaxis -- -- SCDs start Lovenox SC when hemostasis achieved per Ortho, patient is HIGH risk for venous thromboembolism as he has a history of DVT 2018 Full code as per , Ms. Sylvie Quan. She requests updates from providers through [phone]. Disposition lives with his at home will need PT/OT eval, likely needs to transition to SNF upon discharge Admission and Anticipated Discharge Date Admission Date: February 01, 2020 Subjective ff up for right hip fracture, history of CAD, ischemic cardiomyopathy seen sitting up in bed, just had lunch, not in distress, reports right hip pain but not in distress oriented x 2, answers most questions appropriately denies chest pain, dyspnea, palpitations, nausea, dizziness no other symptoms Review of Systems Review of Systems: All systems reviewed & are unremarkable except as noted in HPI & below Physical Exam Physical Exam: General- oriented x 2, not in distress, speaks in sentences with no effort or accessory muscle use Head- atraumatic Eyes- PERRL, EOMI, anicteric ENT- oropharynx clear Neck- supple, no JVD, no adenopathy, no thyromegaly Lungs- clear to auscultation bilaterally, no rales/wheezes Heart- normal rate, regular rhythm; no murmurs Abdomen- normal bowel sounds, nondistended, soft, nontender, no masses or hepatosplenomegaly Extremities- mild right hip/thigh edema, no erythema/warmth/tenderness no pretibial edema, no calf tenderness; peripheral pulses intact Neuro- alert, oriented x 2; CN 2-12 grossly intact; no gross focal deficit noted (lower extremity neuro exam difficult to perform due to pain) Skin- warm & dry Results & Data Results & Data ([facility]) Vital Signs (Past 12 Hours) Vital Signs Temp Pulse Pulse Resp BP Pulse Ox 02/02/20 12:02 36.8 C 66 18 141/64 H 96 02/02/20 09:51 68 02/02/20 07:00 36.2 C L 60 20 112/68 99 02/02/20 04:00 36.6 C 75 18 113/69 96 Laboratory Results Laboratory Results - last 24 hr 02/01/20 02/01/20 02/01/20 20:41 20:43 20:43 WBC 6.71 RBC 4.08 L Hgb 12.2 L Hct 38.2 L MCV 93.6 MCH 29.9 MCHC 31.9 L RDW Std Deviation 46.6 H RDW Coeff of Arabella 13.7 Plt Count 134 MPV 10.2 Immature Gran % (Auto) 0.6 Neut % (Auto) 79.8 Lymph % (Auto) 14.0 [place] % (Auto) 5.1 Eos % (Auto) 0.4 Baso % (Auto) 0.1 Immature Gran # (Auto) 0.04 H Neut # (Auto) 5.35 Lymph # (Auto) 0.94 L [place] # (Auto) 0.34 Eos # (Auto) 0.03 Baso # (Auto) 0.01 PT INR APTT PTT Ratio Sodium Potassium Chloride Carbon Dioxide Anion Gap BUN Creatinine Est Cr Clr Drug Dosing Est GFR ( Amer) Est GFR (Non-Af Amer) BUN/Creatinine Ratio Glucose POC Glucose 174 H Calcium Magnesium Total Bilirubin AST ALT Alkaline Phosphatase Troponin I Total Protein Albumin Globulin Albumin/Globulin Ratio Blood Type O Positive Antibody Screen NEGATIVE 02/01/20 02/01/20 02/02/20 20:43 20:43 00:49 WBC RBC Hgb Hct MCV MCH MCHC RDW Std Deviation RDW Coeff of Arabella Plt Count MPV Immature Gran % (Auto) Neut % (Auto) Lymph % (Auto) [place] % (Auto) Eos % (Auto) Baso % (Auto) Immature Gran # (Auto) Neut # (Auto) Lymph # (Auto) [place] # (Auto) Eos # (Auto) Baso # (Auto) PT 11.7 INR 1.1 APTT 24.5 PTT Ratio 0.9 Sodium 139 Potassium 4.4 Chloride 107 Carbon Dioxide 29 Anion Gap 4.0 BUN 18 Creatinine 1.24 Est Cr Clr Drug Dosing 52.2 Est GFR ( Amer) 63.2 Est GFR (Non-Af Amer) 54.6 BUN/Creatinine Ratio 14.3 Glucose 180 H POC Glucose 179 H Calcium 9.0 Magnesium 2.2 Total Bilirubin 0.5 AST 31 ALT 38 Alkaline Phosphatase 122 H Troponin I < 0.015 Total Protein 7.8 Albumin 3.7 Globulin 4.1 H Albumin/Globulin Ratio 0.9 Blood Type Antibody Screen 02/02/20 02/02/20 02/02/20 06:22 06:22 06:30 WBC 9.01 RBC 3.83 L Hgb 11.5 L Hct 35.6 L MCV 93.0 MCH 30.0 MCHC 32.3 RDW Std Deviation 46.3 RDW Coeff of Arabella 13.7 Plt Count 114 L MPV 9.3 Immature Gran % (Auto) 0.3 Neut % (Auto) 79.9 Lymph % (Auto) 13.5 [place] % (Auto) 6.1 Eos % (Auto) 0.1 Baso % (Auto) 0.1 Immature Gran # (Auto) 0.03 H Neut # (Auto) 7.19 H Lymph # (Auto) 1.22 [place] # (Auto) 0.55 Eos # (Auto) 0.01 Baso # (Auto) 0.01 PT INR APTT PTT Ratio Sodium 139 Potassium 4.4 Chloride 107 Carbon Dioxide 27 Anion Gap 5.0 BUN 22 H Creatinine 1.36 Est Cr Clr Drug Dosing 47.1 Est GFR ( Amer) 56.6 Est GFR (Non-Af Amer) 48.8 BUN/Creatinine Ratio 16.5 Glucose 226 H POC Glucose 231 H Calcium 9.2 Magnesium Total Bilirubin AST ALT Alkaline Phosphatase Troponin I Total Protein Albumin Globulin Albumin/Globulin Ratio Blood Type Antibody Screen 02/02/20 02/02/20 07:21 11:17 WBC RBC Hgb Hct MCV MCH MCHC RDW Std Deviation RDW Coeff of Arabella Plt Count MPV Immature Gran % (Auto) Neut % (Auto) Lymph % (Auto) [place] % (Auto) Eos % (Auto) Baso % (Auto) Immature Gran # (Auto) Neut # (Auto) Lymph # (Auto) [place] # (Auto) Eos # (Auto) Baso # (Auto) PT INR APTT PTT Ratio Sodium Potassium Chloride Carbon Dioxide Anion Gap BUN Creatinine Est Cr Clr Drug Dosing Est GFR ( Amer) Est GFR (Non-Af Amer) BUN/Creatinine Ratio Glucose POC Glucose 216 H 142 H Calcium Magnesium Total Bilirubin AST ALT Alkaline Phosphatase Troponin I Total Protein Albumin Globulin Albumin/Globulin Ratio Blood Type Antibody Screen (1) Closed hip fracture Encounter type: initial encounter Laterality: right Qualified Code(s): S72.001A - Fracture of unspecified part of neck of right femur, initial encounter for closed fracture
[2020-02-02] MEDS: ACETAMINOPHEN 325 MG TAB PO SCH ×2 (15:17→20:10)
[2020-02-02] MEDS: MULTIVITAMIN TAB PO SCH (16:52)
[2020-02-02] MEDS: ASPIRIN 81 MG ECTAB PO SCH (20:11)
--- NOTE | 2020-02-02 20:35 | XRay Report ---
XR femur RT 2V routine CLINICAL HISTORY: right hip fracture/fall trauma COMPARISON: 02/01/2020 DISCUSSION: Fracture of the right femoral neck is again noted. It is unchanged prior study. No additional acute abnormality of the femur. There is no evidence for soft tissue swelling. IMPRESSION: 1. Unchanged fracture base of the femoral neck. 2. Remainder of the femur is unremarkable. ACT 112: Negative or not required by law. The above report was generated using voice recognition software. It may contain grammatical, syntax or spelling errors. Electronically signed by: Dirk Castellanos M.D. 02/02/2020 8:33 PM
[2020-02-03] MEDS: INSULIN ASPART 100 UNITS/ML 3 ML PEN SC SCH ×5 (00:13→20:45)
[2020-02-03] MEDS: ACETAMINOPHEN 325 MG TAB PO SCH ×3 (01:51→13:55)
[2020-02-03 07:17] LABS: Basophils # (auto) 0.01 K/uL (0-0.2); Basophils % (auto) 0.1 %; Eosinophils % (auto) 2.4 %; Hematocrit (blood only) 35.9 % (42-52); Hemoglobin 11.4 g/dL (14.0-18.0); Immature Granulocytes # (auto) 0.04 K/uL (0.00-0.02); Immature Granulocytes % (auto) 0.5 %; Lymphocytes # (auto) 0.99 K/uL (1.2-3.4); Lymphocytes % (auto) 11.7 %; Mean Corpuscular Hemoglobin 30.2 pg (25-34); Mean Corpuscular Hgb Conc 31.8 g/dL (32-36); Mean Corpuscular Volume 95.2 fL (80-100); Mean Platelet Volume 9.9 fL (7.4-10.4); Monocytes # (auto) 0.54 K/uL (0.11-0.59); Monocytes % (auto) 6.4 %; Neutrophils # (auto) 6.71 K/uL (1.4-6.5); Neutrophils % (auto) 78.9 %; Platelet Count 104 K/uL (130-400); RDW Coefficient of Variation 13.7 % (11.5-14.5); RDW Standard Deviation 47.4 fL (36.4-46.3); Red Blood Count 3.77 M/uL (4.7-6.1); White Blood Count 8.49 K/uL (4.8-10.8)
[2020-02-03] MEDS: carvediloL 12.5 MG TAB PO SCH ×2 (07:28→16:57)
[2020-02-03] MEDS: levETIRAcetam 500 MG TAB PO SCH ×2 (07:29→20:44)
[2020-02-03] MEDS ORDERED: Nursing to Pharmacy Communication ONE ×2 (07:36→18:54)
[2020-02-03 07:41] LABS: BUN Creatinine Ratio 19.1 (10-20); Calcium 9.3 mg/dl (8.5-10.1); Est GFR (African American) 64.5; Est GFR (Non-African American) 55.6; Potassium 4.1 mmol/L (3.5-5.1)
[2020-02-03] MEDS ORDERED: INSULIN GLARGINE SOLOSTAR 100 UNITS/ML 3 ML PEN SQ ONE (07:45)
[2020-02-03] MEDS ORDERED: INSULIN GLARGINE SOLOSTAR 100 UNITS/ML 3 ML PEN SQ SCH (09:00)
[2020-02-03] MEDS: POTASSIUM CHLORIDE 10 MEQ TABCR PO SCH (10:20)
[2020-02-03] MEDS: SERTRALINE HCL 50 MG TABLET PO SCH ×2 (10:20→20:44)
--- NOTE | 2020-02-03 10:49 | History & Physical Bridge Note ---
Date of Service February 03, 2020 History & Physical Bridge Note I have examined the patient, reviewed the History & Physical and in the interval since the performance of the History & Physical I have noted the following changes of clinical significance: Right hip trochanteric nailing
--- NOTE | 2020-02-03 11:13 | Cardiology Progress Note ---
Date of Service February 03, 2020 Assessment & Plan (1) Preop cardiovascular exam: Patient is an 79-year-old male with significant morbidities as outlined above who suffered a mechanical fall and subsequent hip fracture, humeral fracture. Patient currently compensated without angina or congestive heart failure by exam in comparison to prior studies. Operative risk is elevated given underlying morbidities and recent history of possible TIA and generalized frailty. However nonsurgical management high risk concern. Discussed case in detail with his who is aware of operative and nonoperative risks Surgery involved. Agree with holding clopidogrel but would resume promptly postop. Being used for neurologic issues. No changes from prior recommendations with patient undergo surgical repair hip today (2) Ischemic cardiomyopathy: Cardiac clinically stable without signs of acute heart failure or deterioration (3) Biventricular cardiac pacemaker in situ: Pacemaker functioning appropriately (4) Closed hip fracture: (5) History of CVA (cerebrovascular accident): Patient currently without acute complaint has had neurologic decline in setting of acute illnesses and surgeries and would expect with current complaints possible delirium or confusion Subjective Patient seen and examined, chart, medications, telemetry reviewed. Complains of discomfort hip and arm Blood pressure is elevated with pain this morning. Anticipate surgical repair right hip later this morning Physical Exam Constitutional: well developed and + frail appearing Eyes: PERRL, conjunctivae normal, anicteric sclerae ENMT: external ear and nose normal, oropharynx normal Neck: trachea midline, no thyromegaly Respiratory: normal respiratory effort, lungs clear to auscultation Cardiovascular: Rate/Rhythm: regular rate and regular rhythm Heart Sounds: normal S1 and normal S2; no gallop and no murmur Palpation: normal PMI Vessels: normal carotid upstroke and radial pulses present; no JVD and no carotid bruit Extremities: no edema Chest (Breasts): Chest: + pacemaker Gastrointestinal (Abdomen): Percussion/Palpation: abdomen soft; abdomen nontender Musculoskeletal: Discomfort right hip and right arm on palpation Skin: no rashes, warm and dry Neurologic: PERRL, EOMI, accommodation nl, no face palsy, no dysarthria Psychiatric: A+Ox3, euthymic affect Results & Data Vital Signs (Past 12 Hours) Vital Signs Temp Pulse Pulse Resp BP Pulse Ox 02/03/20 10:27 36.4 C L 66 18 161/104 H 96 02/03/20 09:03 146/71 H 02/03/20 07:50 36.8 C 74 18 170/77 H 96 02/03/20 04:00 36.6 C 65 18 155/75 H 97 02/03/20 00:11 63 02/02/20 23:18 36.9 C 61 18 136/74 96 Laboratory Results Laboratory Results - last 24 hr 02/02/20 02/02/20 02/02/20 11:17 16:35 20:09 WBC RBC Hgb Hct MCV MCH MCHC RDW Std Deviation RDW Coeff of Arabella Plt Count MPV Immature Gran % (Auto) Neut % (Auto) Lymph % (Auto) [place] % (Auto) Eos % (Auto) Baso % (Auto) Immature Gran # (Auto) Neut # (Auto) Lymph # (Auto) [place] # (Auto) Eos # (Auto) Baso # (Auto) Sodium Potassium Chloride Carbon Dioxide Anion Gap BUN Creatinine Est Cr Clr Drug Dosing Est GFR ( Amer) Est GFR (Non-Af Amer) BUN/Creatinine Ratio Glucose POC Glucose 142 H 171 H 155 H Calcium 02/03/20 02/03/20 02/03/20 00:13 05:42 07:03 WBC 8.49 RBC 3.77 L Hgb 11.4 L Hct 35.9 L MCV 95.2 MCH 30.2 MCHC 31.8 L RDW Std Deviation 47.4 H RDW Coeff of Arabella 13.7 Plt Count 104 L MPV 9.9 Immature Gran % (Auto) 0.5 Neut % (Auto) 78.9 Lymph % (Auto) 11.7 [place] % (Auto) 6.4 Eos % (Auto) 2.4 Baso % (Auto) 0.1 Immature Gran # (Auto) 0.04 H Neut # (Auto) 6.71 H Lymph # (Auto) 0.99 L [place] # (Auto) 0.54 Eos # (Auto) 0.20 Baso # (Auto) 0.01 Sodium Potassium Chloride Carbon Dioxide Anion Gap BUN Creatinine Est Cr Clr Drug Dosing Est GFR ( Amer) Est GFR (Non-Af Amer) BUN/Creatinine Ratio Glucose POC Glucose 132 H 138 H Calcium 02/03/20 07:03 WBC RBC Hgb Hct MCV MCH MCHC RDW Std Deviation RDW Coeff of Arabella Plt Count MPV Immature Gran % (Auto) Neut % (Auto) Lymph % (Auto) [place] % (Auto) Eos % (Auto) Baso % (Auto) Immature Gran # (Auto) Neut # (Auto) Lymph # (Auto) [place] # (Auto) Eos # (Auto) Baso # (Auto) Sodium 139 Potassium 4.1 Chloride 107 Carbon Dioxide 29 Anion Gap 3.0 BUN 23 H Creatinine 1.22 Est Cr Clr Drug Dosing 53.0 Est GFR ( Amer) 64.5 Est GFR (Non-Af Amer) 55.6 BUN/Creatinine Ratio 19.1 Glucose 134 H POC Glucose Calcium 9.3 (1) Closed hip fracture Encounter type: initial encounter Laterality: right Qualified Code(s): S72.001A - Fracture of unspecified part of neck of right femur, initial encounter for closed fracture
[2020-02-03] MEDS ORDERED: LIDOCAINE HCL 2% 2 ML VIAL/AMP(20MG/ML) INFIL ONE (11:30)
[2020-02-03] MEDS ORDERED: NEOSTIGMINE METHYLSULFATE 5 MG/5 ML SYR ONE (11:30)
[2020-02-03] MEDS ORDERED: GLYCOPYRROLATE 0.2 MG/ML VIAL ONE ×2 (11:30→12:39)
[2020-02-03] MEDS ORDERED: PROPOFOL IV EMULSION 10 MG/ML 20 ML VIAL IV ONE (11:30)
[2020-02-03] MEDS ORDERED: DEXAMETHASONE SOD INJ 4 MG/ML VIAL ONE (11:30)
[2020-02-03] MEDS ORDERED: ONDANSETRON INJ 2 MG/ML 2 ML VIAL ONE (11:30)
[2020-02-03] MEDS ORDERED: fentaNYL citrate 100 MCG/2 ML VIAL ONE (11:31)
[2020-02-03] MEDS ORDERED: MIDAZOLAM HCL 1 MG/ML 2ML VIAL ONE (11:31)
[2020-02-03] MEDS ORDERED: BUPIVACAINE 0.5 % 5 MG/1 ML MPF 30ML VIAL ONE (11:35)
--- NOTE | 2020-02-03 12:47 | Post Operative Brief Note ---
Immediate Post Op Note v1 Date of Surgery February 03, 2020 Pre & Post Diagnosis Operation Date: 02/03/20 09:55 Pre-Op Diagnosis: Right displaced intertrochanteric/basicervical hip Fracture, Right proximal humerus fracture Post-Op Diagnosis: Right displaced intertrochanteric/basicervical hip Fracture, Right proximal humerus fracture I identified the patient and participated in the time-out.: Yes Procedure Operation Date: 02/03/20 09:55 Actual Procedures p Right open reduction internal fixation intertrochanteric/basicervical hip fracture with Synthes trochanteric Nail(Right) s Right closed treatment proximal humerus fracture- Baldo Gonzalez DO Surgeon Baldo Gonzalez DO Flatwork Finisher Bj Jaime PA-C Estimated Blood Loss 25 Findings Consistent with Post-Op Diagnosis Specimens None Anesthesia Type General Regional Complications none Disposition Accompanied Patient To Recovery: No Disposition: Recovery Room
--- NOTE | 2020-02-03 13:03 | Fluoroscopy Report ---
FL hip RT 2-3V CLINICAL HISTORY: RT TROCH NAIL COMPARISON STUDY: Right femur radiographs February 02, 2020. FLUOROSCOPY TIME: 104 seconds. FLUOROSCOPIC IMAGES: 4 FINDINGS: These images demonstrate internal fixation of the right femoral fracture with trochanteric nail. Hardware is intact. There are no unexpected radiopaque foreign bodies. Fracture alignment appea rs near anatomic. IMPRESSION: Fluoroscopy provided for right femoral internal fixation. ACT 112: Negative or not required by law. Electronically signed by: Cory Waller M.D. 02/03/2020 1:02 PM
--- NOTE | 2020-02-03 13:11 | Operative Report (OR) ---
DATE OF OPERATION: 02/03/2020 PREOPERATIVE DIAGNOSES: 1. Right displaced intertrochanteric/basicervical hip fracture. 2. Right proximal humerus fracture, status post fall. POSTOPERATIVE DIAGNOSES: 1. Right displaced intertrochanteric/basicervical hip fracture. 2. Right proximal humerus fracture, status post fall. PROCEDURE PERFORMED: Right open reduction and internal fixation of intertrochanteric/displaced basicervical hip fracture with Synthes 12 mm x 130 degree titanium trochanteric nail, 235 mm in length with an 11 mm x 100 mm helical blade and a 5 mm x 42 mm locking screw, closed treatment of right proximal humerus fracture. SURGEON: Baldo Gonzalez DO. SUPERVISOR DUMPING: Bj Jaime PA-C who was present for patient positioning, sterile prep and drape, management of retractors and instruments. He was present through the critical portions of the case including wound closure, application of sterile dressing and transport of the patient to recovery. ANESTHESIA: General regional. SPECIMENS: None. DRAINS: None. COMPLICATIONS: None. BLOOD LOSS: 25 mL. PERTINENT HISTORY: This is an 79-year-old gentleman who sustained a mechanical fall on his right side. He is unable to ambulate, had pain in the right hip. He was transported to [facility], at which point he was evaluated with radiographs, noted to have a right displaced basicervical/intertrochanteric hip fracture. The patient was admitted to the hospitalist service, optimized for surgery and then scheduled for surgery. We had to wait some period of time as the patient was on Plavix for previous history of strokes and cardiac disease. The patient also understands there is increased risk from this procedure as he is being taken care of during the Covid-19 pandemic. The patient was then scheduled for surgery as indicated. All potential risks, benefits, complications, alternatives, rehab potential for incomplete relief of symptoms, need for further surgery, DVT, PE, , persistent pain, swelling, scarring, weakness, neurovascular injury, wound complications, hardware failure, nonunion, malunion, bone fracture, potential exposure to Covid-19 pneumonia and other unforeseen complications were discussed with the patient and his , they both decided to proceed with the procedure as indicated. PROCEDURE DESCRIPTION: The patient was transferred to the operative suite. The proper site was identified. The consent was reviewed, the patient was then administered sedation and spinal anesthetic. Once appropriate, the patient was then transferred to the fracture table where the lower extremity was placed in fracture table traction and the nonoperative leg was placed in the well leg will. All bony prominences were properly padded and protected. The padded post was placed in the peroneal and the patient was positioned appropriately. Next the right leg was placed on traction and reduction of the fracture was performed under fluoroscopic control. Next the operative hip was then sterilely prepped and draped in the usual fashion. Next a 10-blade scalpel incision was used to make an incision proximal to the greater trochanter. The incision was deep in the subcutaneous tissue and fascia and the tip of the greater trochanter was then palpated followed by placement of a guide pin under fluoroscopic control driven into the greater trochanter down to the level of the less trochanter. This was confirmed in AP and lateral projections followed by placement of the proximal reamer over the cannulated guide pin. Next the reamer was then removed using the soft tissue protector, which was also removed. Next the ball tip guide miller was placed into the proximal femur under fluoroscopic control confirmed with AP and lateral fluoroscope projections. Next the trochanteric nail was then passed over the guide miller into the femur, the guide miller was removed and then under fluoroscopic control appropriate level of the femoral nail was then placed in AP projections. Next the targeting device was then fixed to the driving handle and 10-blade scalpel incision was made in the lateral aspect of the thigh. Next the tissue protector and cannulated guide system was then passed into the soft tissue until it was securely fixed against a lateral aspect of the femoral cortex. This was also confirmed under C-arm. Next the guide pin for the spiral blade was driven into the lateral aspect of the femur confirming this with AP lateral projections until the guide pin was in the center of the femoral neck and head approximately 5 mm from the subcortical bone of the femur. Next the spiral blade was then measured and then the lateral cortex was then drilled with the cortex reamer followed by use of the triple reamer with the depth stop set at appropriate depth. In this case, an 11 mm x 100 mm helical blade was then inserted over the cannulated guide miller under fluoroscopic control. This was seated appropriately then traction was reduced from the limb and the fracture was then gently compressed and then locked proximally with the flexible screwdriver. Next the spiral blade was then disengaged from its insertion handle, insertion handle was then removed and the guide pin was removed from the femoral neck and head. Next the lateral targeting arm was used to insert the distal locking screw. First a 10-blade scalpel incision was made in the lateral aspect of the thigh, captured drill sleeves were then tamped gently to the lateral aspect of the femoral cortex then the locking screw hole was then drilled, measured and then an appropriate length screw was placed to lock the distal aspect of the nail. Next targeting sleeves were then removed. The insertion arm was then removed from the nail and final x-rays were obtained in AP and lateral projections. All incisions were then copiously irrigated with sterile normal saline. The proximal gluteus fascia was then closed using interrupted #1 Vicryl, the dermis was closed using buried interrupted 2-0 Vicryl sutures in all three incisions and the skin was then closed using skin mare. A sterile compressive dressing consisting of Xeroform gauze, sterile 4 x 4's and Tegaderm was applied. The patient was then awakened and taken to recovery in stable condition. Radiographs were reviewed noting minimally displaced, minimally angulated right proximal humerus fracture which was then determined to be relatively stable and would be amenable to closed treatment with a sling. The patient was treated closed of the right proximal humerus fracture. I attest to the content of the Intraoperative Record and any orders documented therein. Any exception s are noted below.
--- NOTE | 2020-02-03 13:36 | Anesthesiology Progress Note ---
Date of Service February 03, 2020 Anesthesia Post Procedure Vital Signs Vital Signs: Temp Pulse Pulse Pulse Resp BP Pulse Ox 02/03/20 13:25 83 20 159/67 H 96 02/03/20 13:15 78 20 147/65 H 98 02/03/20 13:09 37.2 C 78 20 132/62 97 02/03/20 10:27 36.4 C L 66 18 161/104 H 96 02/03/20 09:03 146/71 H 02/03/20 07:50 36.8 C 74 18 170/77 H 96 02/03/20 04:00 36.6 C 65 18 155/75 H 97 02/03/20 00:11 63 02/02/20 23:18 36.9 C 61 18 136/74 96 02/02/20 20:08 36.8 C 66 18 124/71 96 02/02/20 18:10 73 02/02/20 16:09 36.4 C L 60 18 115/69 96 Pain Intensity Right Hip: Pain Intensity: 10 Transfer of Care Handoff Completed per policy Notes Mental Status: alert / awake / arousable and participated in evaluation Patient Amnestic to Procedure: Yes Nausea / Vomiting: adequately controlled Pain: adequately controlled Airway Patency, RR, SpO2: stable & adequate BP & HR: stable & adequate Hydration State: stable & adequate Anesthetic Complications: no major complications apparent
[2020-02-03] MEDS ORDERED: ATROPINE SULFATE 0.1 MG/ML 10ML SYR IV PRN (13:44)
[2020-02-03] MEDS ORDERED: ePHEDrine sulfate 50 MG/ML AMP IV PRN (13:44)
--- NOTE | 2020-02-03 13:44 | Anesthesiology Consultation ---
Date of Service February 03, 2020 Assessment & Plan Chart Review Chart Review: Acceptable Risk for Surgery Consults Requested none ASA ASA4 Proposed Anesthesia Anesthesia Type: General History Surgery Operation Date: 02/03/20 09:55 Proposed Procedures p Right Trochateric Nail - Baldo Gonzalez DO Height/Weight Height: 6 ft Weight: 78 kg Allergies Allergy/AdvReac Type Severity Reaction Status Date / Time tramadol Allergy Severe seizures Verified 02/01/20 20:54 iodine Allergy Intermediate airway Verified 02/01/20 20:54 edema oxycodone Allergy Intermediate "itchiness Verified 02/01/20 20:54 all over" codeine AdvReac Intermediate hallucinations, Verified 02/01/20 20:54 depression ANCELMO Inhibitors AdvReac Mild COUGHING Verified 02/01/20 20:54 felodipine AdvReac Mild cough Verified 02/01/20 20:54 Medications Home Medications Medication Instructions Recorded Confirmed Last Taken aspirin [Aspir-Low] 81 mg PO HS 09/07/18 02/01/20 01/31/20 carvedilol [Coreg] 18.75 mg PO BIDM 09/07/18 02/01/20 02/01/20 clopidogrel [Plavix] 75 mg PO HS 09/07/18 02/01/20 01/31/20 dicyclomine 20 mg PO Q6 PRN 09/07/18 02/01/20 Unknown furosemide [Lasix] 40 mg PO 3XWK 09/07/18 02/01/20 02/01/20 levetiracetam [Keppra XR] 500 mg PO BID 09/07/18 02/01/20 02/01/20 losartan [Cozaar] 100 mg PO QAM 09/07/18 02/01/20 02/01/20 multivitamin 1 tab PO QDD 09/07/18 02/01/20 02/01/20 nitroglycerin [Nitrostat] 0.4 mg SUBLINGUAL UD PRN 09/07/18 02/01/20 Unknown potassium chloride [Klor-Con 10] 10 meq PO QDL 09/07/18 02/01/20 02/01/20 sertraline [Zoloft] 75 mg PO .QDL.HS 09/07/18 02/01/20 02/01/20 magnesium 400 mg PO QDL 11/11/18 02/01/20 02/01/20 rosuvastatin 5 mg PO HS 11/14/18 02/01/20 02/01/20 hydralazine 12.5 mg PO TIDM 12/25/18 02/01/20 02/01/20 furosemide 20 mg PO 4XWK 02/01/20 02/01/20 01/31/20 metformin 500 mg PO BIDM 02/01/20 02/01/20 02/01/20 methylcellulose (laxative) [Fiber 500 mg PO QAM 02/01/20 02/01/20 02/01/20 Laxative (methylcellulo)] Active Medications Generic Name Dose Route Start Last Admin Trade Name Freq PRN Reason Stop Dose Admin Acetaminophen 650 mg 02/02/20 14:00 02/03/20 07:33 Tylenol PO 03/03/20 13:59 Not Given Q6H HETAL Hydrocodone Bitart/Acetaminophen 1 tab 02/01/20 22:01 02/02/20 01:07 [place]aden 5/325 PO 02/15/20 22:00 1 tab QID PRN Administration Pain Aspirin 81 mg 02/02/20 21:00 02/02/20 20:11 Ecotrin Ectab PO 03/03/20 20:59 81 mg HS HETAL Administration Carvedilol 18.75 mg 02/01/20 23:25 02/03/20 07:28 Coreg PO 03/02/20 23:24 18.75 mg BIDM HETAL Administration Furosemide 20 mg 02/02/20 09:00 02/02/20 12:44 Lasix PO 03/03/20 08:59 20 mg SuTuThSa@0900 HETAL Administration Hydralazine HCl 12.5 mg 02/02/20 08:00 02/02/20 14:01 Apresoline PO 03/03/20 07:59 Not Given TIDM HETAL Insulin Aspart 0 units 02/02/20 00:00 02/03/20 10:21 Novolog Flexpen SC 03/03/20 00:00 Not Given Q6 HETAL Insulin Glargine 10 units 02/02/20 09:00 02/02/20 20:11 Lantus Solostar Pen SQ 03/03/20 08:59 10 units BID HETAL Administration Levetiracetam 500 mg 02/01/20 23:25 02/03/20 07:29 Keppra PO 03/02/20 23:24 500 mg BID HTEAL Administration Multivitamins 1 tab 02/02/20 16:30 02/02/20 16:52 Multivitamin Tab PO 03/03/20 16:29 1 tab QDD HETAL Administration Potassium Chloride 10 meq 02/02/20 11:30 02/03/20 10:20 Klor-Con M10 PO 03/03/20 11:29 Not Given QDL HETAL Rosuvastatin Calcium 5 mg 02/01/20 23:25 02/02/20 20:10 Crestor PO 03/02/20 23:24 5 mg HS HETAL Administration Sertraline HCl 50 mg 02/02/20 11:30 02/03/20 10:20 Zoloft PO 03/03/20 11:29 Not Given QDL HETAL Sertraline HCl 25 mg 02/02/20 21:00 02/02/20 20:11 Zoloft PO 03/03/20 20:59 25 mg HS HETAL Administration NPO Date Last Intake of Fluids: 02/03/20 Time Last Intake of Fluids: 08:00 Last Intake of Fluids Comment: sip of water with meds Date Last Intake of Solids: 02/02/20 Time Last Intake of Solids: 17:00 Past Medical History Medical History AV block (Chronic) "s/p pacemaker" Benign prostatic hyperplasia (Chronic) Carotid disease, bilateral (Chronic) "asymptomatic" Coronary artery disease (Chronic) "s/p AK" Diabetes mellitus, type II (Chronic) Dyslipidemia (Chronic) GERD (gastroesophageal reflux disease) (Chronic) History of skin cancer (Chronic) Hypertension (Chronic) Left bundle branch block (Chronic) Malignant neoplasm of rectum (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/15) "Rectal bleeding Status post colonoscopy and biopsy 04/02/2015 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 Status post endoscopic ultrasound stage [id number] Neoadjuvant radiation and chemotherapy Chemotherapy comprised of Xeloda Status post completion of radiation therapy 06/24/2015 received 5460 cGy Status post rectosigmoid resection 08/27/2015 ypT2 ypN0 M0 Status post ileostomy closure 04/14/2016, gait by small bowel obstruction and then hemorrhage Status post CVA and then slow wound healing" On 01/20/16 16:12 Celeste Burrell wrote "Rectal bleeding Status post colonoscopy and biopsy 04/02/2015 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 Status post endoscopic ultrasound stage [id number] Neoadjuvant radiation and chemotherapy Chemotherapy comprised of Xeloda Status post completion of radiation therapy 06/24/2015 received 5460 cGy Status post rectosigmoid resection 08/27/2015 ypT2 ypN0 M0" On 07/02/15 10:41 Celeste Burrell wrote "Rectal bleeding Status post colonoscopy and biopsy 04/02/2015 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 Stephens [facility] [place] 2001 DIAZ-LAD, SVG left circumflex" Status post shoulder surgery (Chronic) Status post tonsillectomy (Chronic) Social History Smoking Status: Smoker, status unknown Do You Dip or Chew Tobacco: No Hx Alcohol Use: No Hx Substance Use: No substance use type: does not use Physical Exam Vital Signs Last Vital Signs Temp 37.2 C 02/03/20 13:09 Pulse 81 02/03/20 13:35 Resp 18 02/03/20 13:35 BP 140/68 02/03/20 13:35 Pulse Ox 94 02/03/20 13:35 Testing Laboratory Results 02/03/20 07:03 02/03/20 07:03 PT 11.7 Seconds (9.0-12.0) 02/01/20 20:43 INR 1.1 (0.9-1.1) 02/01/20 20:43 APTT 24.5 Seconds (21.0-31.0) 02/01/20 20:43 Blood Type O Positive 02/01/20 20:43 Antibody Screen NEGATIVE 02/01/20 20:43 02/03/20 02/03/20 13:15 05:42 POC Glucose 119 H 138 H
--- NOTE | 2020-02-03 14:08 | XRay Report ---
XR hip RT min 2V CLINICAL HISTORY: Post-Operative implant position COMPARISON: Right femur radiographs February 02, 2020. FINDINGS: These images demonstrate internal fixation of the proximal right femoral fracture. Fractur e alignment appears anatomic. Hardware is intact. There are no unexpected radiopaque foreign bodies. Distal screw is noted. IMPRESSION: Expected findings following internal fixation of the proximal right femoral fracture. ACT 112: Negative or not required by law. Electronically signed by: Cory Waller M.D. 02/03/2020 2:06 PM
[2020-02-03] MEDS ORDERED: NALOXONE HCL 0.4 MG/1 ML VIAL/CARP IV PRN (14:13)
[2020-02-03] MEDS: MULTIVITAMIN TAB PO SCH (16:56)
--- NOTE | 2020-02-03 17:48 | Hospitalist Progress Note ---
Date of Service February 03, 2020 Assessment & Plan (1) Osteoporotic hip fracture: Possible osteoporotic hip fracture s/p repair today. Cont PT/OT per ortho activity restrictions. Assess whether or not rehab will be needed. Consider calcium supplementation as outpatient. Will not start as inpatient. Check vitamin D level. (2) Postoperative anemia due to acute blood loss: No indicated for transfusion at this time. Cont to monitor. (3) Ischemic cardiomyopathy: euvolemic, appears compensated. Cont medical management of CAD. (4) Seizure disorder: Cont Keppra per home regimen. 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 He has mild expressive language dysfunction, moderate dysarthria, flattening of the right nasolabial fold, and a mild right hemiparesis. His gait is with a walker, but steady. -- neuro exam seems to be baseline (6) DVT prophylaxis: SCDs, chemoprophylaxis recommended when permitted by Orthopedics. Full Code Dispo-uncertain but suspect this patient will go to SNF. Ruchi Cano DO [facility] Hospitalist Admission and Anticipated Discharge Date Admission Date: February 01, 2020 Anticipated date of discharge: 02/07/20 Subjective Pt having pain in hip post op Otherwise doing well Reports intermittent chest pain over the past week He reports discussing this with dr. Jerez. He doesn't currently have chest pain and is tolerating PO Review of Systems Review of Systems: All systems reviewed & are unremarkable except as noted in Subjective Physical Exam Physical Exam: CONSTITUTIONAL: WNWD, vitals as above, generally well- appearing EYES: normal conjunctivae, no scleral icterus ENT: external ear and nose normal,MMM RESPIRATORY: clear to auscultation bilaterally, no crackles, rales or wheezes, normal respiratory effort CARDIOVASCULAR: regular rate and rhythm, S1 and 2 heard without murmurs, gallops or rubs, no JVD, no peripheral edema GASTROINTESTINAL: soft, nontender, nondistended MUSCULOSKELETAL: head is normocephalic and atraumatic SKIN: warm and dry, incision on R hip covered with dressing that is c/d/i NEUROLOGIC: No facial palsy, no dysarthria. CN 2-12 grossly intact, normal cognition, some right sided weakness at baseline which is present but difficult to gauge in setting of R shoulder and hip fracture s/p hip repair just today. PSYCHIATRIC: alert cooperative and oriented to person, place and time. Slow to respond to questions but responds appropriately to questions. Results & Data Results & Data ([facility]) Vital Signs (Past 12 Hours) Vital Signs Temp Pulse Pulse Pulse Resp BP Pulse Ox 02/03/20 16:02 77 02/03/20 15:15 36.5 C 88 18 124/63 98 02/03/20 14:44 36.8 C 84 18 114/69 95 02/03/20 14:19 36.6 C 67 17 143/80 H 95 02/03/20 13:55 86 20 121/74 96 02/03/20 13:45 36.6 C 84 20 160/88 H 94 02/03/20 13:35 81 18 140/68 94 02/03/20 13:25 83 20 159/67 H 96 02/03/20 13:15 78 20 147/65 H 98 02/03/20 13:09 37.2 C 78 20 132/62 97 02/03/20 10:27 36.4 C L 66 18 161/104 H 96 02/03/20 09:03 146/71 H 02/03/20 07:50 36.8 C 74 18 170/77 H 96 Laboratory Results Short CBC 02/03/20 Range/Units 07:03 WBC 8.49 (4.8-10.8) K/uL Hgb 11.4 L (14.0-18.0) g/dL Hct 35.9 L (42-52) % Plt Count 104 L (130-400) K/uL BMP 02/03/20 07:03 Sodium 139 Potassium 4.1 Chloride 107 Carbon Dioxide 29 BUN 23 H Creatinine 1.22 Glucose 134 H Calcium 9.3 Medications Administered Current Inpatient Medications Acetaminophen (Tylenol) 650 mg PO Q6H [facility] Stop: 03/03/20 13:59 Last Admin: 02/03/20 13:55 Dose: Not Given Documented by: Hydrocodone Bitart/Acetaminophen ([place] 5/325) 1 tab PO QID PRN PRN Reason: Pain Stop: 02/15/20 22:00 Last Admin: 02/02/20 01:07 Dose: 1 tab Documented by: Aspirin (Ecotrin Ectab) 81 mg PO HS HETAL Stop: 03/03/20 20:59 Last Admin: 02/02/20 20:11 Dose: 81 mg Documented by: Bisacodyl (Dulcolax) 10 mg NV DAILY PRN PRN Reason: Constipation Stop: 03/02/20 23:24 Carvedilol (Coreg) 18.75 mg PO BIDM [facility] Stop: 03/02/20 23:24 Last Admin: 02/03/20 16:57 Dose: 18.75 mg Documented by: Dextrose (Dextrose 50%) 25 - 50 ml IV UD PRN; Protocol PRN Reason: Hypoglycemia Protocol Stop: 03/02/20 23:24 Furosemide (Lasix) 40 mg PO MoWeFr@0900 [facility] Stop: 03/04/20 08:59 Furosemide (Lasix) 20 mg PO SuTuThSa@0900 [facility] Stop: 03/03/20 08:59 Last Admin: 02/02/20 12:44 Dose: 20 mg Documented by: Glucagon (Glucagen) 1 mg SQ UD PRN; Protocol PRN Reason: Hypoglycemia Protocol Stop: 03/02/20 23:24 Glucose (Dex4 Glucose) 4 - 8 tabs PO UD PRN; Protocol PRN Reason: Hypoglycemia Protocol Stop: 03/02/20 23:24 Glucose (Glucose 40%) 15 - 30 gm PO UD PRN; Protocol PRN Reason: Hypoglycemia Protocol Stop: 03/02/20 23:24 Hydralazine HCl (Apresoline) 12.5 mg PO TIDM [facility] Stop: 03/03/20 07:59 Last Admin: 02/02/20 14:01 Dose: Not Given Documented by: Promethazine HCl 12.5 mg/ (Sodium Chloride) 50.5 mls @ 202 mls/hr IV Q6H PRN PRN Reason: Nausea And Vomiting Stop: 03/02/20 23:24 Insulin Aspart (Novolog Flexpen) 0 units SC Q6 [facility] Stop: 03/03/20 00:00 Last Admin: 02/03/20 16:57 Dose: Not Given Documented by: Insulin Glargine (Lantus Solostar Pen) 10 units SQ BID [facility] Stop: 03/03/20 08:59 Last Admin: 02/02/20 20:11 Dose: 10 units Documented by: Levetiracetam (Keppra) 500 mg PO BID [facility] Stop: 03/02/20 23:24 Last Admin: 02/03/20 07:29 Dose: 500 mg Documented by: Losartan Potassium (Cozaar) 100 mg PO QAM [facility] Stop: 03/03/20 08:59 Magnesium Hydroxide (Milk Of Magnesia) 30 ml PO DAILY PRN PRN Reason: Constipation Stop: 03/02/20 23:24 Miscellaneous (Carbohydrates For Hypoglycemia) 15 - 30 gm PO UD PRN PRN Reason: Hypoglycemia Protocol Stop: 03/02/20 23:24 Morphine Sulfate (Morphine Sulfate) 3 mg IV Q4H PRN PRN Reason: Pain Stop: 02/16/20 13:47 Multivitamins (Multivitamin Tab) 1 tab PO QDD [facility] Stop: 03/03/20 16:29 Last Admin: 02/03/20 16:56 Dose: 1 tab Documented by: Naloxone HCl (Narcan) 0.1 mg IV UD PRN PRN Reason: Opiate Overdose Stop: 03/02/20 23:24 Nitroglycerin (Nitrostat) 0.4 mg SL UD PRN PRN Reason: Chest Pain Stop: 03/02/20 23:24 Potassium Chloride (Klor-Con M10) 10 meq PO QDL [facility] Stop: 03/03/20 11:29 Last Admin: 02/03/20 10:20 Dose: Not Given Documented by: Rosuvastatin Calcium (Crestor) 5 mg PO [facility] Stop: 03/02/20 23:24 Last Admin: 02/02/20 20:10 Dose: 5 mg Documented by: Sertraline HCl (Zoloft) 50 mg PO QDL [facility] Stop: 03/03/20 11:29 Last Admin: 02/03/20 10:20 Dose: Not Given Documented by: Sertraline HCl (Zoloft) 25 mg PO [facility] Stop: 03/03/20 20:59 Last Admin: 02/02/20 20:11 Dose: 25 mg Documented by:
[2020-02-03] MEDS ORDERED: CALCIUM CARBONATE 500 MG CHEWABLE TAB PO PRN (18:45)
[2020-02-03] MEDS ORDERED: OXYCODONE HCL IR 5 MG TAB (IMMEDIATE RELEASE) PO STA (18:45)
[2020-02-03] MEDS: ACETAMINOPHEN 500 MG TAB PO SCH (20:44)
[2020-02-03] MEDS: ASPIRIN 81 MG ECTAB PO SCH (20:44)
[2020-02-03] MEDS: ROSUVASTATIN CALCIUM 5 MG TAB PO SCH (20:44)
[2020-02-03] MEDS: INSULIN GLARGINE SOLOSTAR 100 UNITS/ML 3 ML PEN SQ SCH (20:45)
--- NOTE | 2020-02-03 21:33 | CT Scan Report ---
RIGHT SHOULDER CT CT DOSE: 593.88 mGy.cm HISTORY: evaluate proximal humerus fracture TECHNIQUE: Multiaxial CT images of the right shoulder were performed and reformatted in the sagittal and coronal plane without the use of contrast. A dose lowering technique was utilized adhering to th e principles of ALARA. COMPARISON: None. FINDINGS: There is an impacted right humeral neck fracture which appears completely healed consistent with an old injury. No acute fracture or dislocation within the right shoulder. The right clavicle i s intact. There is mild AC joint arthrosis. A few bony fragments superior to the humeral head likely due to the old injury consistent with intra-articular loose bodies. These measure up to 8 mm. There i s also supraspinatus calcific tendinitis. There is mild cartilage space narrowing and marginal osteop hytes at the glenohumeral joint consistent with degenerative change. No significant joint effusion. T here are 2 anchors within the lateral humeral head consistent with prior rotator cuff repair. IMPRESSION: 1. Old, healed impacted right humeral neck fracture. No acute fracture or dislocation within the righ t shoulder. 2. A few intra-articular loose bodies along the superior aspect of the joint space. 3. Supraspinatus calcific tendinitis. 3. Mild degenerative changes. ACT 112: Negative or not required by law. Electronically signed by: Javon Suarez M.D. 02/03/2020 9:32 PM
[2020-02-04] MEDS: ACETAMINOPHEN 500 MG TAB PO SCH ×3 (04:09→18:02)
[2020-02-04] MEDS ORDERED: ALBUMIN 25% 50 ML IV ONE (06:07)
[2020-02-04 06:29] LABS: Basophils # (auto) 0.01 K/uL (0-0.2); Basophils % (auto) 0.1 %; Eosinophils % (auto) 1.1 %; Hematocrit (blood only) 30.1 % (42-52); Immature Granulocytes # (auto) 0.03 K/uL (0.00-0.02); Immature Granulocytes % (auto) 0.3 %; Lymphocytes # (auto) 1.03 K/uL (1.2-3.4); Lymphocytes % (auto) 11.8 %; Mean Corpuscular Hemoglobin 30.9 pg (25-34); Mean Corpuscular Hgb Conc 33.2 g/dL (32-36); Mean Corpuscular Volume 92.9 fL (80-100); Mean Platelet Volume 10.1 fL (7.4-10.4); Monocytes # (auto) 0.79 K/uL (0.11-0.59); Neutrophils # (auto) 6.77 K/uL (1.4-6.5); Neutrophils % (auto) 77.7 %; Platelet Count 103 K/uL (130-400); RDW Coefficient of Variation 13.8 % (11.5-14.5); RDW Standard Deviation 46.8 fL (36.4-46.3); Red Blood Count 3.24 M/uL (4.7-6.1); White Blood Count 8.73 K/uL (4.8-10.8)
[2020-02-04 07:01] LABS: Creatinine Clr Calc Pharmacy 47.9 ml/min; Est GFR (African American) 57.1; Est GFR (Non-African American) 49.2; Potassium 4.2 mmol/L (3.5-5.1)
[2020-02-04] MEDS: INSULIN GLARGINE SOLOSTAR 100 UNITS/ML 3 ML PEN SQ SCH ×2 (07:52→21:16)
[2020-02-04] MEDS: carvediloL 12.5 MG TAB PO SCH ×2 (07:52→17:56)
[2020-02-04] MEDS: levETIRAcetam 500 MG TAB PO SCH ×2 (07:52→21:08)
[2020-02-04] MEDS: INSULIN ASPART 100 UNITS/ML 3 ML PEN SC SCH ×4 (07:53→21:16)
--- NOTE | 2020-02-04 10:23 | Orthopedic Progress Note ---
Date of Service February 04, 2020 Assessment & Plan (1) Displaced basicervical fracture of right femur: POD 1 s/p Right TFN of displaced basicervical/intertrochanteric hip fx. Right Proximal humerus fx. PT/OT if able. PWB RLE. NWB RUE. May need to be bed to chair intially. Continue sling for RUE. DVT prophy - May resume Plavix. SCD's. Pain management as written. DC planning - May need SNF depending on family's ability to care for patient at home. Admission and Anticipated Discharge Date Admission Date: February 01, 2020 Subjective POD 1 s/p Right TFN / Right proximal Humerus fx Pt sitting up in wheel chair at bedside. States he's comfortable at rest but having pain with getting in and out of bed. States the shoulder feels "ok" today. No other complaints at this time. Appears comfortable. Physical Exam Physical Exam: R arm sling in place. Moving wrist/fingers well. Denies decreased sensation in fingers. Cap refill less than 2 seconds. Right hip dressing C/D/I. Calves soft, NT. Moving toes slowly. Results & Data ([facility]) Vital Signs (Past 12 Hours) Vital Signs Temp Pulse Pulse Pulse Resp BP Pulse Ox 02/04/20 07:50 36.5 C 65 16 129/78 94 02/04/20 04:00 36.5 C 85 20 120/67 95 02/04/20 00:00 92 H 02/03/20 23:41 36.5 C 85 20 109/68 90 Laboratory Results Laboratory Results WBC 8.73 K/uL (4.8-10.8) 02/04/20 06:18 RBC 3.24 M/uL (4.7-6.1) L 02/04/20 06:18 Hgb 10.0 g/dL (14.0-18.0) L 02/04/20 06:18 Hct 30.1 % (42-52) L 02/04/20 06:18 MCV 92.9 fL (80-100) 02/04/20 06:18 MCH 30.9 pg (25-34) 02/04/20 06:18 MCHC 33.2 g/dL (32-36) 02/04/20 06:18 RDW Std Deviation 46.8 fL (36.4-46.3) H 02/04/20 06:18 RDW Coeff of Arabella 13.8 % (11.5-14.5) 02/04/20 06:18 Plt Count 103 K/uL (130-400) L 02/04/20 06:18 MPV 10.1 fL (7.4-10.4) 02/04/20 06:18 Immature Gran % (Auto) 0.3 % 02/04/20 06:18 Neut % (Auto) 77.7 % 02/04/20 06:18 Lymph % (Auto) 11.8 % 02/04/20 06:18 [place] % (Auto) 9.0 % 02/04/20 06:18 Eos % (Auto) 1.1 % 02/04/20 06:18 Baso % (Auto) 0.1 % 02/04/20 06:18 Immature Gran # (Auto) 0.03 K/uL (0.00-0.02) H 02/04/20 06:18 Neut # (Auto) 6.77 K/uL (1.4-6.5) H 02/04/20 06:18 Lymph # (Auto) 1.03 K/uL (1.2-3.4) L 02/04/20 06:18 [place] # (Auto) 0.79 K/uL (0.11-0.59) H 02/04/20 06:18 Eos # (Auto) 0.10 K/uL (0-0.5) 02/04/20 06:18 Baso # (Auto) 0.01 K/uL (0-0.2) 02/04/20 06:18 PT 11.7 Seconds (9.0-12.0) 02/01/20 20:43 INR 1.1 (0.9-1.1) 02/01/20 20:43 APTT 24.5 Seconds (21.0-31.0) 02/01/20 20:43 PTT Ratio 0.9 02/01/20 20:43 Sodium 138 mmol/L (136-145) 02/04/20 06:18 Potassium 4.2 mmol/L (3.5-5.1) 02/04/20 06:18 Chloride 107 mmol/L (98-107) 02/04/20 06:18 Carbon Dioxide 28 mmol/L (21-32) 02/04/20 06:18 Anion Gap 3.0 (3-11) 02/04/20 06:18 BUN 31 mg/dl (7-18) H 02/04/20 06:18 Creatinine 1.35 mg/dl (0.6-1.4) 02/04/20 06:18 Est Cr Clr Drug Dosing 47.9 ml/min 02/04/20 06:18 Est GFR ( Amer) 57.1 02/04/20 06:18 Est GFR (Non-Af Amer) 49.2 02/04/20 06:18 BUN/Creatinine Ratio 23.0 (10-20) H 02/04/20 06:18 Glucose 150 mg/dl (70-99) H 02/04/20 06:18 POC Glucose 155 mg/dl (70-99) H 02/04/20 07:24 Calcium 9.0 mg/dl (8.5-10.1) 02/04/20 06:18 Magnesium 2.2 mg/dl (1.8-2.4) 02/01/20 20:43 Total Bilirubin 0.5 mg/dl (0.2-1) 02/01/20 20:43 AST 31 U/L (15-37) 02/01/20 20:43 ALT 38 U/L (12-78) 02/01/20 20:43 Alkaline Phosphatase 122 U/L (45-117) H 02/01/20 20:43 Troponin I < 0.015 ng/ml (0-0.045) 02/01/20 20:43 Total Protein 7.8 gm/dl (6.4-8.2) 02/01/20 20:43 Albumin 3.7 gm/dl (3.4-5.0) 02/01/20 20:43 Globulin 4.1 gm/dl (2.5-4.0) H 02/01/20 20:43 Albumin/Globulin Ratio 0.9 (0.9-2) 02/01/20 20:43 Blood Type O Positive 02/01/20 20:43 Antibody Screen NEGATIVE 02/01/20 20:43
[2020-02-04] MEDS: POTASSIUM CHLORIDE 10 MEQ TABCR PO SCH (11:03)
[2020-02-04] MEDS: SERTRALINE HCL 50 MG TABLET PO SCH ×2 (11:03→21:08)
--- NOTE | 2020-02-04 11:24 | Cardiology Progress Note ---
Date of Service February 04, 2020 Assessment & Plan (1) Preop cardiovascular exam: Patient is an 79-year-old male with significant morbidities as outlined above who suffered a mechanical fall and subsequent hip fracture, humeral fracture. Patient currently compensated without angina or congestive heart failure by exam in comparison to prior studies. Operative risk is elevated given underlying morbidities and recent history of possible TIA and generalized frailty. However nonsurgical management high risk concern. Discussed case in detail with his who is aware of operative and nonoperative risks 02/04/2020: Patient tolerated surgical repair of hip fracture without difficulty. Clinically improved with pain control. Agree with ongoing plans. May hold aspirin during DVT prophylaxis with Lovenox while continuing Plavix for both coronary and neurologic indications (2) Ischemic cardiomyopathy: Cardiac clinically stable without signs of acute heart failure or deterioration (3) Biventricular cardiac pacemaker in situ: Pacemaker functioning appropriately (4) Closed hip fracture: (5) History of CVA (cerebrovascular accident): No complaints Subjective Patient seen, examined, chart, medications and telemetry reviewed. Patient appears substantially better than day prior sitting out of bed in wheel chair. Surgical incision healing right arm in splint No chest pains or shortness of breath. No dizziness or lightheadedness. No telemetry abnormalities Physical Exam Constitutional: no acute distress Eyes: PERRL, conjunctivae normal, anicteric sclerae ENMT: external ear and nose normal, oropharynx normal Neck: trachea midline, no thyromegaly Respiratory: normal respiratory effort, lungs clear to auscultation Cardiovascular: Rate/Rhythm: regular rate and regular rhythm Heart Sounds: normal S1 and normal S2; no gallop and no murmur Palpation: normal PMI Vessels: normal carotid upstroke and radial pulses present; no JVD and no carotid bruit Extremities: no edema Chest (Breasts): Chest: + pacemaker Gastrointestinal (Abdomen): Percussion/Palpation: abdomen soft; abdomen nontender Musculoskeletal: Right arm in splint Skin: no rashes, warm and dry Surgical incision bandaged Neurologic: awake; not confused Psychiatric: A+Ox3, euthymic affect Results & Data Vital Signs (Past 12 Hours) Vital Signs Temp Pulse Pulse Pulse Resp BP Pulse Ox 02/04/20 07:50 36.5 C 65 16 129/78 94 02/04/20 04:00 36.5 C 85 20 120/67 95 03/31/20 00:00 92 H 02/03/20 23:41 36.5 C 85 20 109/68 90 (1) Closed hip fracture Encounter type: initial encounter Laterality: right Qualified Code(s): S72.001A - Fracture of unspecified part of neck of right femur, initial encounter for closed fracture
[2020-02-04] MEDS ORDERED: ENOXAPARIN INJ 30 MG/0.3 ML SYR SQ ONE (11:37)
--- NOTE | 2020-02-04 13:18 | Hospitalist Progress Note ---
Date of Service February 04, 2020 Assessment & Plan (1) Osteoporotic hip fracture: Possible osteoporotic hip fracture s/p repair. Cont PT/OT per ortho activity restrictions. Assess whether or not rehab will be needed. Consider calcium supplementation as outpatient. Will not start as inpatient. Check vitamin D level. Cont scheduled Tylenol for pain management. (2) Postoperative anemia due to acute blood loss: Hb 10 today from 11.4 yesterday. No indicated for transfusion at this time. Cont to monitor. (3) Urine output low: New issue occurring overnight. Received some IV albumin which didn't im prove the output much. Pt is not examining as volume overload, however, will restart his lasix which was held perioperatively. No change in renal function on bloodwork. No obstruction present as [place] is in place. He is eating and tolerating PO; encourage oral hydration-discussed with nurse. Cont to monitor with [place] in place for accurate I/Os. (4) Ischemic cardiomyopathy: euvolemic, appears compensated. Cont medical management of CAD. Lasix restarted per outpatient regimen. (5) Seizure disorder: Cont Keppra per home regimen. 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 He has mild expressive language dysfunction, moderate dysarthria, flattening of the right nasolabial fold, and a mild right hemiparesis. His gait is with a walker, but steady. -- neuro exam seems to be baseline (7) DVT prophylaxis: SCDs, chemoprophylaxis recommended when permitted by Orthopedics. Full Code Dispo-uncertain but suspect this patient will go to SNF. Ruchi Cano DO [place] Hospitalist Admission and Anticipated Discharge Date Admission Date: February 01, 2020 Anticipated date of discharge: 02/07/20 Subjective Pt feeling well today Denies pain, feels Tylenol is doing a good job for him. Eating well STable on telemetry overnight Spoke with who wants me to consult Dr Calderon for a followup colonoscopy after colon cancer. States she spoke with Kvng who wanted me to consult him. He states he never had that conversation. No consult placed. Review of Systems Review of Systems: All systems reviewed & are unremarkable except as noted in Subjective Physical Exam Physical Exam: CONSTITUTIONAL: WNWD, vitals as above, generally well- appearing EYES: normal conjunctivae, no scleral icterus ENT: external ear and nose normal, MMM RESPIRATORY: clear to auscultation bilaterally, no crackles, rales or wheezes, normal respiratory effort CARDIOVASCULAR: regular rate and rhythm, S1 and 2 heard without murmurs, gallops or rubs, no JVD, no peripheral edema GASTROINTESTINAL: soft, nontender, nondistended MUSCULOSKELETAL: head is normocephalic and atraumatic SKIN: warm and dry, incision on R hip covered with dressing that is c/d/i NEUROLOGIC: No facial palsy, no dysarthria. CN 2-12 grossly intact, normal cognition, some right sided weakness at baseline which is present but difficult to gauge in setting of R shoulder and hip fracture s/p hip repair just today. PSYCHIATRIC: alert cooperative and oriented to person, place and time. Slow to respond to questions but responds appropriately to questions. Results & Data Results & Data ([facility]) Vital Signs (Past 12 Hours) Vital Signs Temp Pulse Pulse Resp BP Pulse Ox 02/04/20 11:55 36.6 C 74 18 96/64 L 90 02/04/20 07:50 36.5 C 65 16 129/78 94 02/04/20 04:00 36.5 C 85 20 120/67 95 Laboratory Results Short CBC 02/04/20 Range/Units 06:18 WBC 8.73 (4.8-10.8) K/uL Hgb 10.0 L (14.0-18.0) g/dL Hct 30.1 L (42-52) % Plt Count 103 L (130-400) K/uL BMP 02/04/20 06:18 Sodium 138 Potassium 4.2 Chloride 107 Carbon Dioxide 28 BUN 31 H Creatinine 1.35 Glucose 150 H Calcium 9.0 Medications Administered Current Inpatient Medications Acetaminophen (Tylenol) 1,000 mg PO Q8H HETAL Stop: 03/04/20 18:59 Last Admin: 02/04/20 18:02 Dose: 1,000 mg Documented by: Bisacodyl (Dulcolax) 10 mg AL DAILY PRN PRN Reason: Constipation Stop: 03/02/20 23:24 Calcium Carbonate (Tums) 500 - 1,000 mg PO Q6H PRN PRN Reason: Indigestion Stop: 03/04/20 18:44 Carvedilol (Coreg) 18.75 mg PO BIDM [facility] Stop: 03/02/20 23:24 Last Admin: 02/04/20 17:56 Dose: 18.75 mg Documented by: Dextrose (Dextrose 50%) 25 - 50 ml IV UD PRN; Protocol PRN Reason: Hypoglycemia Protocol Stop: 03/02/20 23:24 Diphenhydramine HCl (Benadryl Capsule) 25 mg PO Q6H PRN PRN Reason: severe itching Stop: 03/04/20 18:44 Enoxaparin Sodium (Lovenox) 30 mg SQ QAM [facility] Stop: 03/06/20 08:59 Furosemide (Lasix) 40 mg PO MoWeFr@0900 [facility] Stop: 03/04/20 08:59 Furosemide (Lasix) 20 mg PO SuTuThSa@0900 [facility] Stop: 03/03/20 08:59 Last Admin: 02/02/20 12:44 Dose: 20 mg Documented by: Glucagon (Glucagen) 1 mg SQ UD PRN; Protocol PRN Reason: Hypoglycemia Protocol Stop: 03/02/20 23:24 Glucose (Dex4 Glucose) 4 - 8 tabs PO UD PRN; Protocol PRN Reason: Hypoglycemia Protocol Stop: 03/02/20 23:24 Glucose (Glucose 40%) 15 - 30 gm PO UD PRN; Protocol PRN Reason: Hypoglycemia Protocol Stop: 03/02/20 23:24 Hydralazine HCl (Apresoline) 12.5 mg PO TIDM [facility] Stop: 03/03/20 07:59 Last Admin: 02/02/20 14:01 Dose: Not Given Documented by: Promethazine HCl 12.5 mg/ (Sodium Chloride) 50.5 mls @ 202 mls/hr IV Q6H PRN PRN Reason: Nausea And Vomiting Stop: 03/02/20 23:24 Insulin Aspart (Novolog Flexpen) 0 units SC ACHS [facility] Stop: 03/03/20 00:00 Last Admin: 02/04/20 18:09 Dose: 2 units Documented by: Insulin Glargine (Lantus Solostar Pen) 10 units SQ BID [facility] Stop: 03/03/20 08:59 Last Admin: 02/04/20 07:52 Dose: 10 units Documented by: Levetiracetam (Keppra) 500 mg PO BID [facility] Stop: 03/02/20 23:24 Last Admin: 02/04/20 07:52 Dose: 500 mg Documented by: Losartan Potassium (Cozaar) 100 mg PO QAM [facility] Stop: 03/03/20 08:59 Magnesium Hydroxide (Milk Of Magnesia) 30 ml PO DAILY PRN PRN Reason: Constipation Stop: 03/02/20 23:24 Miscellaneous (Carbohydrates For Hypoglycemia) 15 - 30 gm PO UD PRN PRN Reason: Hypoglycemia Protocol Stop: 03/02/20 23:24 Morphine Sulfate (Morphine Sulfate) 3 mg IV Q4H PRN PRN Reason: Pain Stop: 02/16/20 13:47 Multivitamins (Multivitamin Tab) 1 tab PO QDD [facility] Stop: 03/03/20 16:29 Last Admin: 02/04/20 17:34 Dose: 1 tab Documented by: Naloxone HCl (Narcan) 0.1 mg IV UD PRN PRN Reason: Opiate Overdose Stop: 03/02/20 23:24 Nitroglycerin (Nitrostat) 0.4 mg SL UD PRN PRN Reason: Chest Pain Stop: 03/02/20 23:24 Oxycodone HCl (Roxicodone Immediate Rel) 5 mg PO Q6H PRN PRN Reason: Pain Stop: 02/17/20 18:44 Potassium Chloride (Klor-Con M10) 10 meq PO QDL [facility] Stop: 03/03/20 11:29 Last Admin: 02/04/20 11:03 Dose: 10 meq Documented by: Rosuvastatin Calcium (Crestor) 5 mg PO HS [facility] Stop: 03/02/20 23:24 Last Admin: 02/03/20 20:44 Dose: 5 mg Documented by: Sertraline HCl (Zoloft) 50 mg PO QDL [facility] Stop: 03/03/20 11:29 Last Admin: 02/04/20 11:03 Dose: 50 mg Documented by: Sertraline HCl (Zoloft) 25 mg PO HS [facility] Stop: 03/03/20 20:59 Last Admin: 02/03/20 20:44 Dose: 25 mg Documented by:
[2020-02-04] MEDS ORDERED: FUROSEMIDE 40 MG TAB PO ONE (17:28)
[2020-02-04] MEDS: MULTIVITAMIN TAB PO SCH (17:34)
[2020-02-04] MEDS: ROSUVASTATIN CALCIUM 5 MG TAB PO SCH (21:07)
[2020-02-05] MEDS: ACETAMINOPHEN 500 MG TAB PO SCH ×3 (03:29→18:07)
[2020-02-05 05:03] LABS: Hemoglobin 8.7 g/dL (14.0-18.0); Mean Corpuscular Hgb Conc 32.2 g/dL (32-36); Mean Corpuscular Volume 93.1 fL (80-100); Mean Platelet Volume 10.3 fL (7.4-10.4); Platelet Count 113 K/uL (130-400); RDW Coefficient of Variation 13.7 % (11.5-14.5); White Blood Count 7.02 K/uL (4.8-10.8)
[2020-02-05 05:28] LABS: BUN Creatinine Ratio 26.7 (10-20); Calcium 8.7 mg/dl (8.5-10.1); Creatinine Clr Calc Pharmacy 44.6 ml/min; Est GFR (African American) 52.3; Est GFR (Non-African American) 45.2; Potassium 4.5 mmol/L (3.5-5.1)
[2020-02-05] MEDS: OXYCODONE HCL IR 5 MG TAB (IMMEDIATE RELEASE) PO PRN ×2 (08:24→21:30)
[2020-02-05] MEDS: levETIRAcetam 500 MG TAB PO SCH ×2 (08:26→20:53)
[2020-02-05] MEDS: LOSARTAN POTASSIUM 50 MG TAB PO SCH (08:26)
[2020-02-05] MEDS: FUROSEMIDE 40 MG TAB PO SCH (08:27)
[2020-02-05] MEDS: carvediloL 12.5 MG TAB PO SCH ×2 (08:27→16:25)
[2020-02-05] MEDS: ENOXAPARIN INJ 30 MG/0.3 ML SYR SQ SCH (08:35)
[2020-02-05] MEDS: INSULIN GLARGINE SOLOSTAR 100 UNITS/ML 3 ML PEN SQ SCH ×2 (08:36→20:58)
[2020-02-05] MEDS: INSULIN ASPART 100 UNITS/ML 3 ML PEN SC SCH ×4 (08:36→20:59)
--- NOTE | 2020-02-05 10:03 | Orthopedic Progress Note ---
Date of Service February 05, 2020 Assessment & Plan (1) Displaced basicervical fracture of right femur: POD 2 s/p Right TFN of displaced basicervical/intertrochanteric hip fx. Right Proximal humerus fx. Acute Blood Loss Anemia - Follow H/H - transfuse as per Med Service PT/OT if able. PWB RLE. NWB RUE. May need to be bed to chair intially. Continue sling for RUE. DVT prophylaxis - Plavix, Lovenox, SCD's Pain management as written. DC planning - May need SNF depending on family's ability to care for patient at home. Admission and Anticipated Discharge Date Admission Date: February 01, 2020 Anticipated date of discharge: 02/07/20 Subjective POD 2 s/p Right TFN; Right Proximal Humerus Fx (non op) Pt sleeping upon arrival. Easily awoken. No new complaints today. Comfortable. Physical Exam Physical Exam: Dressings C/D/I. Thigh soft, NT. Calves soft,NT. Moving toes well. Results & Data ([facility]) Vital Signs (Past 12 Hours) Vital Signs Temp Pulse Resp BP Pulse Ox 02/05/20 07:31 37.5 C 69 16 112/67 92 02/04/20 23:04 36.8 C 65 16 133/77 96 Laboratory Results Laboratory Results WBC 7.02 K/uL (4.8-10.8) 02/05/20 04:49 RBC 2.90 M/uL (4.7-6.1) L 02/05/20 04:49 Hgb 8.7 g/dL (14.0-18.0) L 02/05/20 04:49 Hct 27.0 % (42-52) L 02/05/20 04:49 MCV 93.1 fL (80-100) 02/05/20 04:49 MCH 30.0 pg (25-34) 02/05/20 04:49 MCHC 32.2 g/dL (32-36) 02/05/20 04:49 RDW Std Deviation 47.0 fL (36.4-46.3) H 02/05/20 04:49 RDW Coeff of Arabella 13.7 % (11.5-14.5) 02/05/20 04:49 Plt Count 113 K/uL (130-400) L 02/05/20 04:49 MPV 10.3 fL (7.4-10.4) 02/05/20 04:49 Immature Gran % (Auto) 0.3 % 02/04/20 06:18 Neut % (Auto) 77.7 % 02/04/20 06:18 Lymph % (Auto) 11.8 % 02/04/20 06:18 Hand % (Auto) 9.0 % 02/04/20 06:18 Eos % (Auto) 1.1 % 02/04/20 06:18 Baso % (Auto) 0.1 % 02/04/20 06:18 Immature Gran # (Auto) 0.03 K/uL (0.00-0.02) H 02/04/20 06:18 Neut # (Auto) 6.77 K/uL (1.4-6.5) H 02/04/20 06:18 Lymph # (Auto) 1.03 K/uL (1.2-3.4) L 02/04/20 06:18 Hand # (Auto) 0.79 K/uL (0.11-0.59) H 02/04/20 06:18 Eos # (Auto) 0.10 K/uL (0-0.5) 02/04/20 06:18 Baso # (Auto) 0.01 K/uL (0-0.2) 02/04/20 06:18 PT 11.7 Seconds (9.0-12.0) 02/01/20 20:43 INR 1.1 (0.9-1.1) 02/01/20 20:43 APTT 24.5 Seconds (21.0-31.0) 02/01/20 20:43 PTT Ratio 0.9 02/01/20 20:43 Sodium 138 mmol/L (136-145) 02/05/20 04:49 Potassium 4.5 mmol/L (3.5-5.1) 02/05/20 04:49 Chloride 108 mmol/L (98-107) H 02/05/20 04:49 Carbon Dioxide 30 mmol/L (21-32) 02/05/20 04:49 Anion Gap 0 (3-11) L 02/05/20 04:49 BUN 39 mg/dl (7-18) H 02/05/20 04:49 Creatinine 1.45 mg/dl (0.6-1.4) H 02/05/20 04:49 Est Cr Clr Drug Dosing 44.6 ml/min 02/05/20 04:49 Est GFR ( Amer) 52.3 02/05/20 04:49 Est GFR (Non-Af Amer) 45.2 02/05/20 04:49 BUN/Creatinine Ratio 26.7 (10-20) H 02/05/20 04:49 Glucose 109 mg/dl (70-99) H 02/05/20 04:49 POC Glucose 108 mg/dl (70-99) H 02/05/20 08:07 Calcium 8.7 mg/dl (8.5-10.1) 02/05/20 04:49 Magnesium 2.2 mg/dl (1.8-2.4) 02/01/20 20:43 Total Bilirubin 0.5 mg/dl (0.2-1) 02/01/20 20:43 AST 31 U/L (15-37) 02/01/20 20:43 ALT 38 U/L (12-78) 02/01/20 20:43 Alkaline Phosphatase 122 U/L (45-117) H 02/01/20 20:43 Troponin I < 0.015 ng/ml (0-0.045) 02/01/20 20:43 Total Protein 7.8 gm/dl (6.4-8.2) 02/01/20 20:43 Albumin 3.7 gm/dl (3.4-5.0) 02/01/20 20:43 Globulin 4.1 gm/dl (2.5-4.0) H 02/01/20 20:43 Albumin/Globulin Ratio 0.9 (0.9-2) 02/01/20 20:43 25-OH Vitamin D Total 19.7 ng/ml (30-100) L 02/05/20 04:49 Blood Type O Positive 02/01/20 20:43 Antibody Screen NEGATIVE 02/01/20 20:43
[2020-02-05] MEDS: POTASSIUM CHLORIDE 10 MEQ TABCR PO SCH (11:36)
[2020-02-05] MEDS: SERTRALINE HCL 50 MG TABLET PO SCH ×2 (11:36→20:53)
[2020-02-05] MEDS: MULTIVITAMIN TAB PO SCH (16:25)
[2020-02-05] MEDS: ROSUVASTATIN CALCIUM 5 MG TAB PO SCH (20:52)
--- NOTE | 2020-02-05 22:25 | Hospitalist Progress Note ---
Date of Service February 05, 2020 Assessment & Plan (1) Displaced basicervical fracture of right femur: Mechanical fall with right hip pain. X-ray showed displaced intertrochanteric/basicervical fracture. ORIF performed by Dr. Gonzalez on 02/03/20. (2) Fracture, humerus, proximal: X-ray showed fracture of right proximal humerus. Conservative management with immobilization recommended. (3) Osteoporosis: Vitamin D level 19.7. Calcium + vitamin D replacement. (4) Postoperative anemia due to acute blood loss: Hgb 12.2 --> --> 8.7. Acute blood loss anemia secondary to hip fracture. No indication for transfusion at this time per current guidelines. Follow. (5) Coronary artery disease: No anginal symptoms. Resume clopidogrel if OK from surgical perspective. Need to clarify whether or not patient also taking ASA. Continue carvedilol and statin. (6) Ischemic cardiomyopathy: Chronic left ventricular systolic heart failure due to ischemic cardiomyopathy. LVEF 20% 2018. Compensated. Continue carvedilol, losartan, furosemide. Follow. (7) History of CVA (cerebrovascular accident): Continue clopidogrel and stain. (8) Hypertension: Continue carvedilol, losartan, hydralazine. (9) Diabetes mellitus, type II: Lantus / NovoLog per protocol. FBS today = 108. (10) DVT prophylaxis: SQ enoxaparin. Ambulate as able. (11) Discharge planning issues: Anticipated need for skilled care or inpatient rehab. Family Medicine follow-up with Dr. Moreno. Admission and Anticipated Discharge Date Admission Date: February 01, 2020 Anticipated date of discharge: 02/07/20 Subjective Recheck for multiple problems. Patient seen in their room around 1100. Tired. Has some postop pain. Still has [place] cath. Review of Systems: Constitutional- no fever. Cardiac- no chest pain. Pulmonary- no cough or SOB. GI- no nausea, vomiting, diarrhea, melena, hematochezia. - as noted above. Otherwise, as noted above. Physical Exam Constitutional: no acute distress Respiratory: no respiratory distress Auscultation: lungs clear to auscultation bilaterally Cardiovascular: Rate/Rhythm: regular rate and regular rhythm Heart Sounds: no gallop Vessels: no JVD Extremities: + edema (trace); no calf tenderness Gastrointestinal (Abdomen): normal bowel sounds, soft, nontender, no hepatosplenomegaly Skin: no rashes, warm and dry Psychiatric: Orientation: alert Results & Data Results & Data ([facility]) Vital Signs (Past 12 Hours) Vital Signs Temp Pulse Pulse Resp BP Pulse Ox 02/05/20 16:24 67 106/66 02/05/20 15:05 36.3 C L 62 16 109/64 93 Laboratory Results 02/05/20 04:49 02/05/20 04:49
[2020-02-06] MEDS: ACETAMINOPHEN 500 MG TAB PO SCH ×3 (03:16→18:21)
[2020-02-06 06:03] LABS: Basophils # (auto) 0.01 K/uL (0-0.2); Basophils % (auto) 0.2 %; Eosinophils # (auto) 0.24 K/uL (0-0.5); Eosinophils % (auto) 3.7 %; Hematocrit (blood only) 25.7 % (42-52); Hemoglobin 8.4 g/dL (14.0-18.0); Immature Granulocytes # (auto) 0.04 K/uL (0.00-0.02); Immature Granulocytes % (auto) 0.6 %; Lymphocytes # (auto) 1.31 K/uL (1.2-3.4); Lymphocytes % (auto) 19.9 %; Mean Corpuscular Hemoglobin 30.7 pg (25-34); Mean Corpuscular Hgb Conc 32.7 g/dL (32-36); Mean Corpuscular Volume 93.8 fL (80-100); Mean Platelet Volume 9.8 fL (7.4-10.4); Monocytes % (auto) 9.1 %; Neutrophils # (auto) 4.37 K/uL (1.4-6.5); Neutrophils % (auto) 66.5 %; Platelet Count 118 K/uL (130-400); RDW Coefficient of Variation 13.6 % (11.5-14.5); RDW Standard Deviation 46.2 fL (36.4-46.3); Red Blood Count 2.74 M/uL (4.7-6.1); White Blood Count 6.57 K/uL (4.8-10.8)
[2020-02-06 06:53] LABS: BUN Creatinine Ratio 29.8 (10-20); Calcium 8.7 mg/dl (8.5-10.1); Creatinine Clr Calc Pharmacy 49.4 ml/min; Est GFR (African American) 59.2; Est GFR (Non-African American) 51.1; Potassium 4.2 mmol/L (3.5-5.1)
[2020-02-06] MEDS: ENOXAPARIN INJ 30 MG/0.3 ML SYR SQ SCH (07:46)
[2020-02-06] MEDS: carvediloL 12.5 MG TAB PO SCH ×2 (07:47→16:43)
[2020-02-06] MEDS: LOSARTAN POTASSIUM 50 MG TAB PO SCH (07:47)
[2020-02-06] MEDS: FUROSEMIDE 20 MG TAB PO SCH (07:47)
[2020-02-06] MEDS: levETIRAcetam 500 MG TAB PO SCH ×2 (07:48→21:59)
--- NOTE | 2020-02-06 07:52 | Hospitalist Progress Note ---
Date of Service February 06, 2020 Assessment & Plan (1) Displaced basicervical fracture of right femur: Mechanical fall with right hip pain. X-ray showed displaced intertrochanteric/basicervical fracture. ORIF performed by Dr. Gonzalez on 02/03/20. (2) Fracture, humerus, proximal: X-ray showed fracture of right proximal humerus. Conservative management with immobilization recommended. (3) Osteoporosis: Vitamin D level 19.7. Calcium + vitamin D replacement. (4) Postoperative anemia due to acute blood loss: Hgb 12.2 --> --> 8.4. Acute blood loss anemia secondary to hip fracture. No indication for transfusion at this time per current guidelines. Follow. (5) Coronary artery disease: No anginal symptoms. Resume clopidogrel if OK from surgical perspective. Need to clarify whether or not patient also taking ASA. Continue carvedilol and statin. (6) Ischemic cardiomyopathy: Chronic left ventricular systolic heart failure due to ischemic cardiomyopathy. LVEF 20% 2018. Compensated. Continue carvedilol, losartan, furosemide. Follow. (7) History of CVA (cerebrovascular accident): Continue clopidogrel and stain. (8) Hypertension: Continue carvedilol, losartan, hydralazine. (9) Diabetes mellitus, type II: Lantus / NovoLog per protocol. FBS today = 108. (10) DVT prophylaxis: SQ enoxaparin. Ambulate as able. (11) Discharge planning issues: Anticipated need for skilled care or inpatient rehab. Family Medicine follow-up with Dr. Moreno. Labs Checked-DC when Hb trending up, Plavix and Lovenox x 2 weeks, then DC Lovenox and add ASA, continue Plavix ROS-No Headache, No Visual Changes, No Nausea, No Vomiting, No Fever, No Chills, No Neck Pain or Stiffness, No Chest Pain, No Palpitations, No SOB, No WARD, No Cough, No Sputum, No Wheezing, No Abdominal Pain, No Diarrhea, No Hematemesis, No Hemoptysis, No Unexpected Weight Loss, No Flank pain, No Melena, No Hematochezia, No Frequency, No Urgency, No Burning, No Hematuria, No Rashes, No Diaphoresis. Appetite is Normal Physical Exam Gen-AAO x 3, NAD, Afebrile Head-NCAT, EOMI, PERRLA, Anicteric Sclera, No Posterior Pharyngeal Erythema Neck-Supple, No JVD, No Thyromegaly, No Masses, No LAD, No Bruits Lungs-Clear to Auscultation Bilaterally, No Rales, No Rhonchi, No Wheezing, No Crepitus Chest-No S4, +S1, +S2, No S3, No Murmurs, No Rubs, No Gallops, No Ectopy Abdomen-Soft, Bowel Sounds Present, Non Tender, Non Distended, No Hepatomegaly, No Splenomegaly, No Palpable Masses, No Rebound, No Rigidity, No Guarding Musculoskeletal-R arm in Sling Extremities-No Cyanosis, No Clubbing, No Edema Nuero-Cranial Nerves II-XII grossly intact, Motor WNL, DTRs WNL, Strength WNL, Non Focal Psych-Normal Mood Admission and Anticipated Discharge Date Admission Date: February 01, 2020 Anticipated date of discharge: 02/09/20 Results & Data Results & Data ([facility]) Vital Signs (Past 12 Hours) Vital Signs Temp Pulse Pulse Resp BP Pulse Ox 02/06/20 06:47 37.0 C 74 120/70 95 02/05/20 22:59 37.4 C 65 16 113/68 100
--- NOTE | 2020-02-06 08:10 | Orthopedic Progress Note ---
Date of Service February 06, 2020 Assessment & Plan (1) Displaced basicervical fracture of right femur: POD 2 s/p Right TFN of displaced basicervical/intertrochanteric hip fx. Right Proximal humerus fx. Acute Blood Loss Anemia - Follow H/H - slilght drop today to 8.4. Discussed with Dr. Salazar. PT/OT if able. PWB RLE. NWB RUE. May need to be bed to chair intially. Continue sling for RUE. DVT prophylaxis - Plavix, Lovenox, SCD's Pain management as written. DC planning - May need SNF depending on family's ability to care for patient at home. Ortho will sign off at this time. Please call with any questions. Instructions placed in discharge section. Admission and Anticipated Discharge Date Admission Date: February 01, 2020 Anticipated date of discharge: 02/09/20 Subjective POD 3 s/p Right TFN; Right Proximal Humerus Fx (Non op) Pt sitting up in bed. Appears more alert today. No complaints this AM. Physical Exam Physical Exam: Incisions are C/D/I. Thigh with mild swelling but soft. Calves soft,NT. NV intact. Results & Data ([facility]) Vital Signs (Past 12 Hours) Vital Signs Temp Pulse Pulse Resp BP Pulse Ox 02/06/20 06:47 37.0 C 74 120/70 95 02/05/20 22:59 37.4 C 65 16 113/68 100 Laboratory Results Laboratory Results WBC 6.57 K/uL (4.8-10.8) 02/06/20 05:41 RBC 2.74 M/uL (4.7-6.1) L 02/06/20 05:41 Hgb 8.4 g/dL (14.0-18.0) L 02/06/20 05:41 Hct 25.7 % (42-52) L 02/06/20 05:41 MCV 93.8 fL (80-100) 02/06/20 05:41 MCH 30.7 pg (25-34) 02/06/20 05:41 MCHC 32.7 g/dL (32-36) 02/06/20 05:41 RDW Std Deviation 46.2 fL (36.4-46.3) 02/06/20 05:41 RDW Coeff of Arabella 13.6 % (11.5-14.5) 02/06/20 05:41 Plt Count 118 K/uL (130-400) L 02/06/20 05:41 MPV 9.8 fL (7.4-10.4) 02/06/20 05:41 Immature Gran % (Auto) 0.6 % 02/06/20 05:41 Neut % (Auto) 66.5 % 02/06/20 05:41 Lymph % (Auto) 19.9 % 02/06/20 05:41 [place] % (Auto) 9.1 % 02/06/20 05:41 Eos % (Auto) 3.7 % 02/06/20 05:41 Baso % (Auto) 0.2 % 02/06/20 05:41 Immature Gran # (Auto) 0.04 K/uL (0.00-0.02) H 02/06/20 05:41 Neut # (Auto) 4.37 K/uL (1.4-6.5) 02/06/20 05:41 Lymph # (Auto) 1.31 K/uL (1.2-3.4) 02/06/20 05:41 [place] # (Auto) 0.60 K/uL (0.11-0.59) H 02/06/20 05:41 Eos # (Auto) 0.24 K/uL (0-0.5) 02/06/20 05:41 Baso # (Auto) 0.01 K/uL (0-0.2) 02/06/20 05:41 PT 11.7 Seconds (9.0-12.0) 02/01/20 20:43 INR 1.1 (0.9-1.1) 02/01/20 20:43 APTT 24.5 Seconds (21.0-31.0) 02/01/20 20:43 PTT Ratio 0.9 02/01/20 20:43 Sodium 138 mmol/L (136-145) 02/06/20 05:41 Potassium 4.2 mmol/L (3.5-5.1) 02/06/20 05:41 Chloride 104 mmol/L (98-107) 02/06/20 05:41 Carbon Dioxide 30 mmol/L (21-32) 02/06/20 05:41 Anion Gap 3.0 (3-11) 02/06/20 05:41 BUN 39 mg/dl (7-18) H 02/06/20 05:41 Creatinine 1.31 mg/dl (0.6-1.4) 02/06/20 05:41 Est Cr Clr Drug Dosing 49.4 ml/min 02/06/20 05:41 Est GFR ( Amer) 59.2 02/06/20 05:41 Est GFR (Non-Af Amer) 51.1 02/06/20 05:41 BUN/Creatinine Ratio 29.8 (10-20) H 02/06/20 05:41 Glucose 95 mg/dl (70-99) 02/06/20 05:41 POC Glucose 168 mg/dl (70-99) H 02/05/20 20:38 Calcium 8.7 mg/dl (8.5-10.1) 02/06/20 05:41 Magnesium 2.2 mg/dl (1.8-2.4) 02/01/20 20:43 Total Bilirubin 0.5 mg/dl (0.2-1) 02/01/20 20:43 AST 31 U/L (15-37) 02/01/20 20:43 ALT 38 U/L (12-78) 02/01/20 20:43 Alkaline Phosphatase 122 U/L (45-117) H 02/01/20 20:43 Troponin I < 0.015 ng/ml (0-0.045) 02/01/20 20:43 Total Protein 7.8 gm/dl (6.4-8.2) 02/01/20 20:43 Albumin 3.7 gm/dl (3.4-5.0) 02/01/20 20:43 Globulin 4.1 gm/dl (2.5-4.0) H 02/01/20 20:43 Albumin/Globulin Ratio 0.9 (0.9-2) 02/01/20 20:43 25-OH Vitamin D Total 19.7 ng/ml (30-100) L 02/05/20 04:49 Blood Type O Positive 02/01/20 20:43 Antibody Screen NEGATIVE 02/01/20 20:43
[2020-02-06] MEDS: CLOPIDOGREL BISULFATE 75 MG TAB PO SCH (08:55)
[2020-02-06] MEDS: INSULIN ASPART 100 UNITS/ML 3 ML PEN SC SCH ×4 (08:56→22:09)
[2020-02-06] MEDS: INSULIN GLARGINE SOLOSTAR 100 UNITS/ML 3 ML PEN SQ SCH ×2 (08:58→22:10)
[2020-02-06] MEDS: OXYCODONE HCL IR 5 MG TAB (IMMEDIATE RELEASE) PO PRN (09:03)
[2020-02-06] MEDS: POTASSIUM CHLORIDE 10 MEQ TABCR PO SCH (11:59)
[2020-02-06] MEDS ORDERED: ERGOCALCIFEROL 50,000 UNITS CAP PO SCH (12:00)
[2020-02-06] MEDS: SERTRALINE HCL 50 MG TABLET PO SCH ×2 (12:00→21:59)
[2020-02-06] MEDS: MAGNESIUM HYDROXIDE SUSP 30 ML UDC PO PRN (13:38)
[2020-02-06] MEDS: MULTIVITAMIN TAB PO SCH (16:42)
[2020-02-06] MEDS: ROSUVASTATIN CALCIUM 5 MG TAB PO SCH (21:57)
[2020-02-07] MEDS: ACETAMINOPHEN 500 MG TAB PO SCH ×3 (05:17→22:03)
[2020-02-07 05:29] LABS: Hematocrit (blood only) 24.1 % (42-52); Hemoglobin 7.8 g/dL (14.0-18.0); Mean Corpuscular Hemoglobin 30.4 pg (25-34); Mean Corpuscular Hgb Conc 32.4 g/dL (32-36); Mean Corpuscular Volume 93.8 fL (80-100); Mean Platelet Volume 10.3 fL (7.4-10.4); Platelet Count 130 K/uL (130-400); RDW Coefficient of Variation 13.5 % (11.5-14.5); RDW Standard Deviation 46.2 fL (36.4-46.3); Red Blood Count 2.57 M/uL (4.7-6.1); White Blood Count 4.81 K/uL (4.8-10.8)
[2020-02-07 06:01] LABS: BUN Creatinine Ratio 30.1 (10-20); Calcium 8.6 mg/dl (8.5-10.1); Creatinine Clr Calc Pharmacy 55.7 ml/min; Est GFR (African American) 68.6; Est GFR (Non-African American) 59.1
--- NOTE | 2020-02-07 07:31 | Hospitalist Progress Note ---
Date of Service February 07, 2020 Assessment & Plan (1) Displaced basicervical fracture of right femur: Mechanical fall with right hip pain. X-ray showed displaced intertrochanteric/basicervical fracture. ORIF performed by Dr. Gonzalez on 02/03/20. (2) Fracture, humerus, proximal: X-ray showed fracture of right proximal humerus. Conservative management with immobilization recommended. (3) Osteoporosis: Vitamin D level 19.7. Calcium + vitamin D replacement. (4) Postoperative anemia due to acute blood loss: Hgb 12.2 --> --> 7.8. Acute blood loss anemia secondary to hip fracture. No indication for transfusion at this time per current guidelines. Follow. [place] when Hb rising (5) Coronary artery disease: No anginal symptoms. Resumed clopidogrel. Resume ASA in 2 weeks. Continue carvedilol and statin. (6) Ischemic cardiomyopathy: Chronic left ventricular systolic heart failure due to ischemic cardiomyopathy. LVEF 20% 2018. Compensated. Continue carvedilol, losartan, furosemide. Follow. (7) History of CVA (cerebrovascular accident): Continue clopidogrel and stain. (8) Hypertension: Continue carvedilol, losartan, hydralazine. (9) Diabetes mellitus, type II: Lantus / NovoLog per protocol. FBS today = 108. (10) DVT prophylaxis: SQ enoxaparin. Ambulate as able. (11) Discharge planning issues: Anticipated [place] when Hb more stable Family Medicine follow-up with Dr. Moreno. Labs Checked-DC when Hb trending up, Plavix and Lovenox x 2 weeks, then DC Lovenox and add ASA, continue Plavix Check Fe, Ferritin, and TIBC ROS-No Headache, No Visual Changes, No Nausea, No Vomiting, No Fever, No Chills, No Neck Pain or Stiffness, No Chest Pain, No Palpitations, No SOB, No WARD, No Cough, No Sputum, No Wheezing, No Abdominal Pain, No Diarrhea, No Hematemesis, No Hemoptysis, No Unexpected Weight Loss, No Flank pain, No Melena, No Hematochezia, No Frequency, No Urgency, No Burning, No Hematuria, No Rashes, No Diaphoresis. Appetite is Normal Physical Exam Gen-AAO x 3, NAD, Afebrile Head-NCAT, EOMI, PERRLA, Anicteric Sclera, No Posterior Pharyngeal Erythema Neck-Supple, No JVD, No Thyromegaly, No Masses, No LAD, No Bruits Lungs-Clear to Auscultation Bilaterally, No Rales, No Rhonchi, No Wheezing, No Crepitus Chest-No S4, +S1, +S2, No S3, No Murmurs, No Rubs, No Gallops, No Ectopy Abdomen-Soft, Bowel Sounds Present, Non Tender, Non Distended, No Hepatomegaly, No Splenomegaly, No Palpable Masses, No Rebound, No Rigidity, No Guarding Musculoskeletal-R arm in Sling Extremities-No Cyanosis, No Clubbing, No Edema Nuero-Cranial Nerves II-XII grossly intact, Motor WNL, DTRs WNL, Strength WNL, Non Focal Psych-Normal Mood Admission and Anticipated Discharge Date Admission Date: February 01, 2020 Anticipated date of discharge: 02/09/20 Results & Data Results & Data ([facility]) Vital Signs (Past 12 Hours) Vital Signs Temp Pulse Resp BP Pulse Ox 02/06/20 23:05 36.9 C 61 18 139/67 97
[2020-02-07 08:09] LABS: Ferritin 283.9 ng/ml (8-388)
[2020-02-07] MEDS: carvediloL 12.5 MG TAB PO SCH ×2 (08:44→18:14)
[2020-02-07] MEDS: FUROSEMIDE 40 MG TAB PO SCH (08:45)
[2020-02-07] MEDS: LOSARTAN POTASSIUM 50 MG TAB PO SCH (08:46)
[2020-02-07] MEDS: CLOPIDOGREL BISULFATE 75 MG TAB PO SCH (08:46)
[2020-02-07] MEDS: ENOXAPARIN INJ 30 MG/0.3 ML SYR SQ SCH (08:47)
[2020-02-07] MEDS: levETIRAcetam 500 MG TAB PO SCH ×2 (08:47→22:00)
[2020-02-07] MEDS: INSULIN GLARGINE SOLOSTAR 100 UNITS/ML 3 ML PEN SQ SCH ×2 (08:49→21:58)
[2020-02-07] MEDS: INSULIN ASPART 100 UNITS/ML 3 ML PEN SC SCH ×4 (08:50→21:58)
[2020-02-07] MEDS: MAGNESIUM HYDROXIDE SUSP 30 ML UDC PO PRN (11:26)
[2020-02-07] MEDS: POTASSIUM CHLORIDE 10 MEQ TABCR PO SCH (12:13)
[2020-02-07] MEDS: SERTRALINE HCL 50 MG TABLET PO SCH ×2 (13:02→22:00)
[2020-02-07] MEDS: MULTIVITAMIN TAB PO SCH (18:14)
[2020-02-07] MEDS: ROSUVASTATIN CALCIUM 5 MG TAB PO SCH (22:01)
[2020-02-08] MEDS: OXYCODONE HCL IR 5 MG TAB (IMMEDIATE RELEASE) PO PRN ×2 (00:05→14:37)
[2020-02-08 05:28] LABS: Hematocrit (blood only) 24.7 % (42-52); Mean Corpuscular Hemoglobin 30.1 pg (25-34); Mean Corpuscular Hgb Conc 32.4 g/dL (32-36); Mean Corpuscular Volume 92.9 fL (80-100); Mean Platelet Volume 9.6 fL (7.4-10.4); Nucleated RBC # (auto) 0.03 K/uL (0-0); Nucleated RBC % (auto) 0.7 %; Platelet Count 149 K/uL (130-400); RDW Coefficient of Variation 13.3 % (11.5-14.5); RDW Standard Deviation 45.1 fL (36.4-46.3); Red Blood Count 2.66 M/uL (4.7-6.1); White Blood Count 4.18 K/uL (4.8-10.8)
[2020-02-08] MEDS: ACETAMINOPHEN 500 MG TAB PO SCH ×3 (05:58→18:51)
[2020-02-08 06:12] LABS: BUN Creatinine Ratio 30.4 (10-20); Calcium 8.5 mg/dl (8.5-10.1); Creatinine Clr Calc Pharmacy 63.4 ml/min; Est GFR (African American) 80.1; Est GFR (Non-African American) 69.1; Potassium 3.9 mmol/L (3.5-5.1)
[2020-02-08] MEDS ORDERED: IRON SUCROSE 300 MG in SODIUM CHLORIDE 0.9% 250 ML IV ONE (08:00)
[2020-02-08] MEDS: CLOPIDOGREL BISULFATE 75 MG TAB PO SCH (08:16)
[2020-02-08] MEDS: levETIRAcetam 500 MG TAB PO SCH ×2 (08:16→20:21)
[2020-02-08] MEDS: ENOXAPARIN INJ 30 MG/0.3 ML SYR SQ SCH (08:17)
[2020-02-08] MEDS: carvediloL 12.5 MG TAB PO SCH ×2 (08:21→17:21)
[2020-02-08] MEDS: LOSARTAN POTASSIUM 50 MG TAB PO SCH (08:21)
[2020-02-08] MEDS: INSULIN GLARGINE SOLOSTAR 100 UNITS/ML 3 ML PEN SQ SCH ×2 (08:25→20:28)
[2020-02-08] MEDS: INSULIN ASPART 100 UNITS/ML 3 ML PEN SC SCH ×4 (08:26→20:28)
--- NOTE | 2020-02-08 09:28 | Hospitalist Progress Note ---
Date of Service February 08, 2020 Assessment & Plan (1) Displaced basicervical fracture of right femur: Mechanical fall with right hip pain. X-ray showed displaced intertrochanteric/basicervical fracture. ORIF performed by Dr. Gonzalez on 02/03/20. (2) Fracture, humerus, proximal: X-ray showed fracture of right proximal humerus. Conservative management with immobilization recommended. (3) Osteoporosis: Vitamin D level 19.7. Calcium + vitamin D replacement. (4) Postoperative anemia due to acute blood loss: Hgb 12.2 --> --> 7.8. Acute blood loss anemia secondary to hip fracture. No indication for transfusion at this time per current guidelines. Follow. [facility] when Hb rising (5) Iron deficiency anemia: IV Venofer today, Hb rising, DC to ARF [facility] today (6) Coronary artery disease: No anginal symptoms. Resumed clopidogrel. Resume ASA in 2 weeks. Continue carvedilol and statin. (7) Ischemic cardiomyopathy: Chronic left ventricular systolic heart failure due to ischemic cardiomyopathy. LVEF 20% 2018. Compensated. Continue carvedilol, losartan, furosemide. Follow. (8) History of CVA (cerebrovascular accident): Continue clopidogrel and stain. (9) Hypertension: Continue carvedilol, losartan, hydralazine. (10) Diabetes mellitus, type II: Lantus / NovoLog per protocol. FBS today = 108. (11) DVT prophylaxis: SQ enoxaparin. Ambulate as able. (12) Discharge planning issues: Family Medicine follow-up with Dr. Moreno. Labs Checked-DC Today if accepted at [facility], Plavix and Lovenox x 2 weeks, then DC Lovenox and add ASA to Plavix ROS-No Headache, No Visual Changes, No Nausea, No Vomiting, No Fever, No Chills, No Neck Pain or Stiffness, No Chest Pain, No Palpitations, No SOB, No WARD, No Cough, No Sputum, No Wheezing, No Abdominal Pain, No Diarrhea, No Hematemesis, No Hemoptysis, No Unexpected Weight Loss, No Flank pain, No Melena, No Hematochezia, No Frequency, No Urgency, No Burning, No Hematuria, No Rashes, No Diaphoresis. Appetite is Normal Physical Exam Gen-AAO x 3, NAD, Afebrile Head-NCAT, EOMI, PERRLA, Anicteric Sclera, No Posterior Pharyngeal Erythema Neck-Supple, No JVD, No Thyromegaly, No Masses, No LAD, No Bruits Lungs-Clear to Auscultation Bilaterally, No Rales, No Rhonchi, No Wheezing, No Crepitus Chest-No S4, +S1, +S2, No S3, No Murmurs, No Rubs, No Gallops, No Ectopy Abdomen-Soft, Bowel Sounds Present, Non Tender, Non Distended, No Hepatomegaly, No Splenomegaly, No Palpable Masses, No Rebound, No Rigidity, No Guarding Musculoskeletal-R arm in Sling Extremities-No Cyanosis, No Clubbing, No Edema Nuero-Cranial Nerves II-XII grossly intact, Motor WNL, DTRs WNL, Strength WNL, Non Focal Psych-Normal Mood Admission and Anticipated Discharge Date Admission Date: February 01, 2020 Anticipated date of discharge: 02/09/20 Results & Data Results & Data ([facility]) Vital Signs (Past 12 Hours) Vital Signs Temp Pulse Pulse Resp BP Pulse Ox 02/08/20 08:20 61 156/73 H 02/08/20 07:07 37.0 C 65 18 142/75 H 93 02/08/20 00:01 37.1 C 64 18 118/67 93
[2020-02-08] MEDS: FUROSEMIDE 20 MG TAB PO SCH (09:47)
[2020-02-08] MEDS: SERTRALINE HCL 50 MG TABLET PO SCH ×2 (12:39→20:21)
[2020-02-08] MEDS: DOCUSATE SODIUM/SENNA 50/8.6MG TAB PO SCH (12:40)
[2020-02-08] MEDS: FERROUS SULFATE 325 MG TAB PO SCH ×2 (12:40→17:21)
[2020-02-08] MEDS: POTASSIUM CHLORIDE 10 MEQ TABCR PO SCH (12:40)
[2020-02-08] MEDS: MULTIVITAMIN TAB PO SCH (17:21)
[2020-02-08] MEDS: ROSUVASTATIN CALCIUM 5 MG TAB PO SCH (20:20)
[2020-02-09] MEDS: ACETAMINOPHEN 500 MG TAB PO SCH ×3 (03:33→18:29)
[2020-02-09 05:17] LABS: Hematocrit (blood only) 25.4 % (42-52); Hemoglobin 8.3 g/dL (14.0-18.0); Mean Corpuscular Hemoglobin 30.3 pg (25-34); Mean Corpuscular Hgb Conc 32.7 g/dL (32-36); Mean Corpuscular Volume 92.7 fL (80-100); Mean Platelet Volume 9.2 fL (7.4-10.4); Platelet Count 176 K/uL (130-400); RDW Coefficient of Variation 13.6 % (11.5-14.5); RDW Standard Deviation 45.8 fL (36.4-46.3); Red Blood Count 2.74 M/uL (4.7-6.1)
[2020-02-09 05:44] LABS: Creatinine Clr Calc Pharmacy 66.7 ml/min; Est GFR (African American) 85.1; Est GFR (Non-African American) 73.4; Potassium 4.2 mmol/L (3.5-5.1)
[2020-02-09] MEDS: OXYCODONE HCL IR 5 MG TAB (IMMEDIATE RELEASE) PO PRN ×3 (05:52→22:33)
--- NOTE | 2020-02-09 07:36 | Hospitalist Progress Note ---
Date of Service February 09, 2020 Assessment & Plan (1) Displaced basicervical fracture of right femur: Mechanical fall with right hip pain. X-ray showed displaced intertrochanteric/basicervical fracture. ORIF performed by Dr. Gonzalez on 02/03/20. (2) Fracture, humerus, proximal: X-ray showed fracture of right proximal humerus. Conservative management with immobilization recommended. (3) Osteoporosis: Vitamin D level 19.7. Calcium + vitamin D replacement. (4) Postoperative anemia due to acute blood loss: Hgb rising daily now, PO FeSO4 TID ordered Acute blood loss anemia secondary to hip fracture. Chronic Fe Deficiency Anemia Follow. Monday (5) Iron deficiency anemia: PO Fe, IV site Lost, Hb rising, DC to ARF Monday (6) Coronary artery disease: No anginal symptoms. Resumed clopidogrel. Resume ASA in 2 weeks. Continue carvedilol and statin. (7) Ischemic cardiomyopathy: Chronic left ventricular systolic heart failure due to ischemic cardiomyopathy. LVEF 20% 2017. Compensated. Continue carvedilol, losartan, furosemide. Follow. (8) History of CVA (cerebrovascular accident): Continue clopidogrel and stain. (9) Hypertension: Continue carvedilol, losartan, hydralazine. (10) Diabetes mellitus, type II: Lantus / NovoLog per protocol. FBS today = 108. (11) DVT prophylaxis: SQ enoxaparin. Ambulate as able. (12) Discharge planning issues: Family Medicine follow-up with Dr. Moreno. Labs Checked-DC Monday to , Plavix and Lovenox x 2 weeks, then DC Lovenox and add ASA to Plavix ROS-No Headache, No Visual Changes, No Nausea, No Vomiting, No Fever, No Chills, No Neck Pain or Stiffness, No Chest Pain, No Palpitations, No SOB, No WARD, No Cough, No Sputum, No Wheezing, No Abdominal Pain, No Diarrhea, No Hematemesis, No Hemoptysis, No Unexpected Weight Loss, No Flank pain, No Melena, No Hematochezia, No Frequency, No Urgency, No Burning, No Hematuria, No Rashes, No Diaphoresis. Appetite is Normal Physical Exam Gen-AAO x 3, NAD, Afebrile Head-NCAT, EOMI, PERRLA, Anicteric Sclera, No Posterior Pharyngeal Erythema Neck-Supple, No JVD, No Thyromegaly, No Masses, No LAD, No Bruits Lungs-Clear to Auscultation Bilaterally, No Rales, No Rhonchi, No Wheezing, No Crepitus Chest-No S4, +S1, +S2, No S3, No Murmurs, No Rubs, No Gallops, No Ectopy Abdomen-Soft, Bowel Sounds Present, Non Tender, Non Distended, No Hepatomegaly, No Splenomegaly, No Palpable Masses, No Rebound, No Rigidity, No Guarding Musculoskeletal-R arm in Sling Extremities-No Cyanosis, No Clubbing, No Edema Nuero-Cranial Nerves II-XII grossly intact, Motor WNL, DTRs WNL, Strength WNL, Non Focal Psych-Normal Mood Admission and Anticipated Discharge Date Admission Date: February 01, 2020 Anticipated date of discharge: 02/10/20 Results & Data Results & Data ([facility]) Vital Signs (Past 12 Hours) Vital Signs Temp Pulse Pulse Resp BP Pulse Ox 02/09/20 07:24 37.2 C 66 18 149/65 H 93 02/08/20 23:40 37.4 C 57 L 16 134/75 96
[2020-02-09] MEDS: INSULIN ASPART 100 UNITS/ML 3 ML PEN SC SCH ×4 (08:42→21:03)
[2020-02-09] MEDS: INSULIN GLARGINE SOLOSTAR 100 UNITS/ML 3 ML PEN SQ SCH ×2 (08:42→21:03)
[2020-02-09] MEDS: ENOXAPARIN INJ 30 MG/0.3 ML SYR SQ SCH (08:47)
[2020-02-09] MEDS: LOSARTAN POTASSIUM 50 MG TAB PO SCH (08:49)
[2020-02-09] MEDS: CLOPIDOGREL BISULFATE 75 MG TAB PO SCH (08:49)
[2020-02-09] MEDS: DOCUSATE SODIUM/SENNA 50/8.6MG TAB PO SCH (08:49)
[2020-02-09] MEDS: FUROSEMIDE 20 MG TAB PO SCH (08:49)
[2020-02-09] MEDS: levETIRAcetam 500 MG TAB PO SCH ×2 (08:49→20:20)
[2020-02-09] MEDS: FERROUS SULFATE 325 MG TAB PO SCH ×3 (08:49→17:00)
[2020-02-09] MEDS: carvediloL 12.5 MG TAB PO SCH ×2 (08:49→16:59)
[2020-02-09] MEDS: SERTRALINE HCL 50 MG TABLET PO SCH ×2 (12:15→20:21)
[2020-02-09] MEDS: POTASSIUM CHLORIDE 10 MEQ TABCR PO SCH (12:15)
[2020-02-09] MEDS: MULTIVITAMIN TAB PO SCH (16:59)
[2020-02-09] MEDS: ROSUVASTATIN CALCIUM 5 MG TAB PO SCH (20:20)
[2020-02-10] MEDS: ACETAMINOPHEN 500 MG TAB PO SCH (02:51)
[2020-02-10 04:47] LABS: Hematocrit (blood only) 25.3 % (42-52); Hemoglobin 8.3 g/dL (14.0-18.0); Mean Corpuscular Hemoglobin 30.4 pg (25-34); Mean Corpuscular Hgb Conc 32.8 g/dL (32-36); Mean Corpuscular Volume 92.7 fL (80-100); Mean Platelet Volume 9.2 fL (7.4-10.4); Platelet Count 187 K/uL (130-400); RDW Coefficient of Variation 13.6 % (11.5-14.5); RDW Standard Deviation 45.3 fL (36.4-46.3); Red Blood Count 2.73 M/uL (4.7-6.1); White Blood Count 6.85 K/uL (4.8-10.8)
[2020-02-10 05:12] LABS: BUN Creatinine Ratio 25.5 (10-20); Calcium 8.7 mg/dl (8.5-10.1); Est GFR (Non-African American) 69.9; Potassium 3.9 mmol/L (3.5-5.1)
--- NOTE | 2020-02-10 08:02 | Discharge Summary ---
Date of Service February 10, 2020 Admission HPI Per Admitting Provider History obtained from patient, family, and records. Patient is a fair historian. Medical history significant for chronic systolic heart failure secondary to ischemic cardiomyopathy (EF of 40-44%, TTE 2018), coronary artery disease s/p CABG, SSS sp PPM, HTN, hx CVA, PVD, hyperlipidemia, colorectal CA status post surgery status post chemoradiation, DM2 on oral medications, history of seizure disorder on Keppra, history DVT as per records, chronic anemia baseline hemoglobin 12-13, chronic thrombocytopenia. Recent confinement December 2018 for TIA. This afternoon patient noted worsening of chronic right lower extremity weakness which led patient to fall down landing on his right side. Patient experienced achy right hip pain, unable to get up. No chest pain, no unusual shortness of breath, no head trauma. Patient found by . As per , complaints of worsening right-sided weakness not a new complaint for patient. Stroke alert called upon evaluation at the ER. Patient not felt to be a TPA candidate due to deficit likely being chronic as per [facility] tele-stroke specialist. Medical History as above Outpatient ICD interrogation scheduled last month by [facility] hydrography teacher deferred and rescheduled to March 2020 due to COVID-19 precautions as per . Surgical History : CABG, vascular procedures, pacemaker, partial colectomy, appendectomy, hernia repair, TA, skin graft surgery, shoulder surgery, urologic procedure, Family History : Multiple myeloma, diabetes, heart disease, breast cancer, prostate cancer Personal/Social history : Non-smoker, no EtOH intake, lives with Admission Exam Per Admitting Provider GENERAL: Uncomfortable, no respiratory distress, dysarthric (chronic), oriented to month and year SKIN: Pallor , warm HEENT: Alopecia, bespectacled, pink palpebral conjunctivae, no ptosis, chronic subtle facial asymmetry, dry buccal mucosa NECK : Supple, no tenderness CHEST : CTA, no tenderness HEART : RRR, systolic murmur ABDOMEN: Some distention, healed incisional scars, nontender EXTREMITIES : Right hip rotation, right hip tenderness, minimal LE swelling NEUROLOGIC : Coherent, dysarthric, chronic subtle facial asymmetry, MMT BUE 4/5; RLE 1/5 (limited due to pain), LLE 3/5 Principal Diagnosis (1) Displaced basicervical fracture of right femur: (2) Fracture, humerus, proximal: (3) Osteoporosis: (4) Postoperative anemia due to acute blood loss: (5) Iron deficiency anemia: (6) Coronary artery disease: (7) Ischemic cardiomyopathy: (8) History of CVA (cerebrovascular accident): (9) Hypertension: (10) Diabetes mellitus, type II: Discharge Exam Gen-AAO x 3, NAD, Afebrile Head-NCAT, EOMI, PERRLA, Anicteric Sclera, No Posterior Pharyngeal Erythema Neck-Supple, No JVD, No Thyromegaly, No Masses, No LAD, No Bruits Lungs-Clear to Auscultation Bilaterally, No Rales, No Rhonchi, No Wheezing, No Crepitus Chest-No S4, +S1, +S2, No S3, No Murmurs, No Rubs, No Gallops, No Ectopy Abdomen-Soft, Bowel Sounds Present, Non Tender, Non Distended, No Hepatomegaly, No Splenomegaly, No Palpable Masses, No Rebound, No Rigidity, No Guarding Musculoskeletal-R arm in Sling Extremities-No Cyanosis, No Clubbing, No Edema Nuero-Cranial Nerves II-XII grossly intact, Motor WNL, DTRs WNL, Strength WNL, Non Focal Psych-Normal Mood Discharge Data Allergies Allergy/AdvReac Type Severity Reaction Status Date / Time tramadol Allergy Severe seizures Verified 02/01/20 20:54 iodine Allergy Intermediate airway Verified 02/01/20 20:54 edema oxycodone Allergy Intermediate "itchiness Verified 02/01/20 20:54 all over" codeine AdvReac Intermediate hallucinations, Verified 02/01/20 20:54 depression ANCELMO Inhibitors AdvReac Mild COUGHING Verified 02/01/20 20:54 felodipine AdvReac Mild cough Verified 02/01/20 20:54 Consultations 02/01/20 21:41 ED Decision to Admit Stat 02/01/20 23:25 Consult Cardiology Routine Consult Case Management - Discharge Planning Routine Consult Orthopedic Surgery Routine Procedures Performed Operation Date: 02/03/20 09:55 Actual Procedures p Right Trochanteric Nail(Right) - Baldo Gonzalez, Ordered Studies 02/01/20 20:27 CT head/brain wo con Stat 02/03/20 10:30 FL fluoroscopy <1hr Routine FL hip RT 2-3V Routine 02/03/20 14:50 CT shoulder RT wo con Urgent Current Diagnoses Iron deficiency anemia, unspecified (02/01/20) Acute posthemorrhagic anemia (02/01/20) Type 2 diabetes mellitus without complications (02/01/20) Epilepsy, unspecified, not intractable, without status epilepticus (02/01/20) Essential (primary) hypertension (02/01/20) Atherosclerotic heart disease of [place] coronary artery without angina pectoris (02/01/20) Ischemic cardiomyopathy (02/01/20) Age-related osteoporosis with current pathological fracture, unspecified femur, initial encounter for fracture (02/01/20) Age-related osteoporosis without current pathological fracture (02/01/20) Anuria and oliguria (02/01/20) Unspecified fracture of upper end of unspecified humerus, initial encounter for closed fracture (02/01/20) Fracture of unspecified part of neck of right femur, initial encounter for closed fracture (02/01/20) Displaced fracture of base of neck of right femur, initial encounter for closed fracture (02/01/20) Encounter for preprocedural cardiovascular examination (02/01/20) Encounter for administrative examinations, unspecified (02/01/20) Encounter for prophylactic measures, unspecified (02/01/20) Personal history of transient ischemic attack (TIA), and cerebral infarction without residual deficits (02/01/20) Presence of cardiac pacemaker (02/01/20) Allergies tramadol Allergy (Severe, Verified 02/01/20 20:54) seizures iodine Allergy (Intermediate, Verified 02/01/20 20:54) airway edema oxycodone Allergy (Intermediate, Verified 02/01/20 20:54) "itchiness all over" codeine Adverse Reaction (Intermediate, Verified 02/01/20 20:54) hallucinations, depression ANCELMO Inhibitors Adverse Reaction (Mild, Verified 02/01/20 20:54) COUGHING felodipine Adverse Reaction (Mild, Verified 02/01/20 20:54) cough Height/Weight/Isolation Height 6 ft Weight 79.5 kg Chemistry 02/09/20 02/10/20 04:53 04:34 Sodium 139 139 Potassium 4.2 3.9 Chloride 107 106 Carbon Dioxide 28 28 Anion Gap 4.0 5.0 BUN 27 H 26 H Creatinine 0.97 1.01 Glucose 113 H 134 H Hospital Course (1) Displaced basicervical fracture of right femur: Mechanical fall with right hip pain. X-ray showed displaced intertrochanteric/basicervical fracture. ORIF performed by Dr. Gonzalez on 02/03/20. (2) Fracture, humerus, proximal: X-ray showed fracture of right proximal humerus. Conservative management with immobilization recommended. (3) Osteoporosis: Vitamin D level 19.7. Calcium + vitamin D replacement. (4) Postoperative anemia due to acute blood loss: Hgb rising daily now, PO FeSO4 TID ordered Acute blood loss anemia secondary to hip fracture. Chronic Fe Deficiency Anemia Follow. Monday (5) Iron deficiency anemia: PO Fe, IV site Lost, Hb rising, DC to ARF Monday (6) Coronary artery disease: No anginal symptoms. Resumed clopidogrel. Resume ASA in 2 weeks. Continue carvedilol and statin. (7) Ischemic cardiomyopathy: Chronic left ventricular systolic heart failure due to ischemic cardiomyopathy. LVEF 20% 2018. Compensated. Continue carvedilol, losartan, furosemide. Follow. (8) History of CVA (cerebrovascular accident): Continue clopidogrel and stain. (9) Hypertension: Continue carvedilol, losartan, hydralazine. (10) Diabetes mellitus, type II: Lantus / NovoLog per protocol. FBS today = 108. (11) DVT prophylaxis: SQ enoxaparin. Ambulate as able. (12) Discharge planning issues: Family Medicine follow-up with Dr. Moreno. DC to [facility], Plavix and Lovenox x 2 weeks, then DC Lovenox and add ASA to Plavix Total Time Total Time Spent Total Time Spent (In Minutes): 45 mins Total Time Includes: Examination of the Patient, Discharge Planning, Medication Reconciliation and Communication With Other Providers Discharge Plan Discharge Items Patient Disposition: Transfer Inpatient Rehab Fac Reason For Visit: MILD CHF, R HIP FX Discharge Diagnosis: (1) Displaced basicervical fracture of right femur: (2) Fracture, humerus, proximal: (3) Osteoporosis: (4) Postoperative anemia due to acute blood loss:Fe Deficiency Anemia (5) Iron deficiency anemia: (6) Coronary artery disease: (7) Ischemic cardiomyopathy: (8) History of CVA (cerebrovascular accident): (9) Hypertension: (10) Diabetes mellitus, type II: Condition on Discharge: Fair Activity: Per Instructions section Lifting: Gradually increase as tolerated Bathing: Keep incision dry Exercise/Sports: Gradually increase as tolerated Driving/Machine Use: none Weightbearing: Right partial Weightbearing Comment: RLE partial weightbearing. RUE Nonweightbearing Non-emergency contact: Primary Care Provider and Surgeon Call non-emergency contact if: your pain is not controlled, your temperature is above 101.5 and your wound has increased drainage Follow-up/Referrals: Baldo Gonzalez DO [Surgeon] - (Call for apt) Xavi Moreno MD [Primary Care Provider] - Gema Foy [facility] [Non-Staff] - Diet: Carb Consistent or DM2 and Heart Healthy Addtl Attending Provider Instructions: None Addtl Taping Foreman Provider Instructions: Right Proximal Humerus Instructions: Continue to use your sling at all times. May remove to bathe or get dressed. No active Range of motion of the shoulder at this time. [facility] DISCHARGE INSTRUCTIONS: HIP FRACTURE SELF CARE INSTRUCTIONS: A. You are to ambulate with a walker or crutches for approximately 6 weeks. B. You are PARTIAL WEIGHT BEARING on your operative lower extremity for at least 6 weeks. C. Wear low heeled shoes with non-slip soles D. Be sure that your floors are free of things that could trip you throw rugs, electrical cords, and small objects. Avoid wet and waxed floors, especially with crutches/walker/cane. E. Try to walk several times a day with rest periods between. F. You may shower 48 hours after surgery and get the incision area wet, but DO NOT soak or submerge incision area in water. (No baths, swimming pools, hot tubs) G. You may have a large, band-aid like dressing over your incision (Aquacel). This will remain on your incision for 7 days, and then can be removed. You CAN shower with this on. If incision is leaking through the dressing, please call the office . H. Do NOT apply soap or any ointment/lotions directly over incision. I. You may use ice as needed to operative site. SPECIAL CARE INSTRUCTIONS: VERY IMPORTANT TO READ AND REVIEW A. You may be at risk for phlebitis or blood clots. a. Wear surgical stockings (CAMILA hose) for 2 weeks after surgery to improve circulation and reduce swelling. b. Take LOVENOX 30mg SQ daily for 2 weeks or as directed. This is your blood thinner. B. There are a few signs you need to watch for after you are home. Call [facility] at [phone] if you experience any of the following: a. If you have a temperature of 101 degrees or higher. b. Sudden increase in pain in your hip not relieved by rest or pain medication. c. Any fluid or drainage from the incision; redness of the incision. d. Shortness of breath or chest pain. . C. Call your physician if: a. Temperature is greater than 101 degrees (F). b. Pain is not relieved by prescribed pain medications. c. Increase drainage or redness from incision. d. Unanswered questions or concerns. D. Pain Medication: a. You will be prescribed pain medication upon discharge that should last till your first post-operative appointment. b. If you experience nausea and/or skin rash, discon tinue this medication and contact our office for an alternative medication. c. Caution- narcotic pain medication can cause constipation. FOLLOW UP VISIT: Please call [facility] at [phone] to schedule a follow up appointment 10-[address] Gonzalez from the date of your surgery date. Pending Studies at Discharge: No Stand-Alone Forms: Coronavirus, My [facility] Skilled Items Patient informed of condition?: Yes DNR: No Discharge Level of Care: Acute rehab Communicable Disease: No Discharge Prognosis: Improving Lines: None Urinary Catheter: No Medications and DC Order Prescriptions: New acetaminophen 500 mg Tablet 1,000 mg PO Q8H Qty: 30 RF: 0 ferrous sulfate 325 mg (65 mg iron) Tablet,Delayed Release (Dr/Ec) 325 mg PO TIDM Qty: 90 RF: 0 oxycodone 5 mg Tablet 5 mg PO Q6H PRN (Reason: pain) Qty: 30 RF: 0 enoxaparin [Lovenox] 30 mg/0.3 mL Syringe 30 mg subcut QAM Qty: 12 RF: 0 sennosides-docusate sodium [Senokot-S] 8.6-50 mg Tablet 2 tab PO QAM Qty: 60 RF: 0 bisacodyl 10 mg Suppository 10 mg VA DAILY PRN (Reason: constipation) Qty: 30 RF: 0 ergocalciferol (vitamin D2) 1,250 mcg (50,000 unit) Capsule 50,000 unit PO Q7D@0900 Qty: 5 RF: 0 Continued magnesium 200 mg Tablet 400 mg PO QDL RF: 0 rosuvastatin 5 mg Tablet 5 mg PO HS RF: 0 furosemide 40 mg tablet 20 mg PO 4XWK RF: 0 metformin 500 mg tablet 500 mg PO BIDM RF: 0 Fiber Laxative (methylcellulo) 500 mg Tablet 500 mg PO QAM RF: 0 multivitamin Tablet 1 tab PO QDD RF: 0 furosemide [Lasix] 40 mg tablet 40 mg PO 3XWK RF: 0 potassium chloride [Klor-Con 10] 10 mEq tablet extended release 10 meq PO QDL RF: 0 clopidogrel [Plavix] 75 mg tablet 75 mg PO HS RF: 0 aspirin [Aspir-Low] 81 mg Tablet,Delayed Release (Dr/Ec) 81 mg PO HS RF: 0 dicyclomine 20 mg tablet 20 mg PO Q6 PRN (Reason: Abdominal Discomfort) RF: 0 nitroglycerin [Nitrostat] 0.4 mg tablet, sublingual 0.4 mg Sublingual UD PRN (Reason: Chest Pain) RF: 0 losartan [Cozaar] 100 mg tablet 100 mg PO QAM RF: 0 sertraline [Zoloft] 50 mg tablet 75 mg PO .QDL.HS RF: 0 carvedilol [Coreg] 12.5 mg tablet 18.75 mg PO BIDM RF: 0 levetiracetam [Keppra XR] 500 mg tablet extended release 24 hr 500 mg PO BID RF: 0 hydralazine 25 mg tablet 12.5 mg PO TIDM RF: 0 Discharge Orders: Discharge Order (Routine); Ordered 02/10/20 Ordered By: Josias Kohli/Other Patient Handouts: 2019-nCoV Admission Data Admit Date/Time: 02/01/20 22:36 Attending Provider: Josias Luo Admit Provider: Yves King Primary Care Provider: Xavi Moreno Other Providers: Yves King ; Andrea Jerez ; Cameron Perez ; Gema Foy [facility] ; Ruchi Cano
[2020-02-10] MEDS: carvediloL 12.5 MG TAB PO SCH (08:24)
[2020-02-10] MEDS: DOCUSATE SODIUM/SENNA 50/8.6MG TAB PO SCH (08:24)
[2020-02-10] MEDS: FERROUS SULFATE 325 MG TAB PO SCH (08:25)
[2020-02-10] MEDS: CLOPIDOGREL BISULFATE 75 MG TAB PO SCH (08:25)
[2020-02-10] MEDS: FUROSEMIDE 40 MG TAB PO SCH (08:25)
[2020-02-10] MEDS: LOSARTAN POTASSIUM 50 MG TAB PO SCH (08:26)
[2020-02-10] MEDS: levETIRAcetam 500 MG TAB PO SCH (08:26)
[2020-02-10] MEDS: ENOXAPARIN INJ 30 MG/0.3 ML SYR SQ SCH (08:27)
[2020-02-10] MEDS: INSULIN ASPART 100 UNITS/ML 3 ML PEN SC SCH (08:29)
[2020-02-10] MEDS: INSULIN GLARGINE SOLOSTAR 100 UNITS/ML 3 ML PEN SQ SCH (08:30)
[2020-02-10] MEDS: OXYCODONE HCL IR 5 MG TAB (IMMEDIATE RELEASE) PO PRN (10:28)
== END 2020-02-10 11:07 | DRG 481 ==
LOC: ED 20:16 → 2S 22:36 → SUATTDRO 22:36 → 2S 22:58 → 3E 02-04 14:42

== ENCOUNTER 2020-07-17 17:35 | Inpatient (IN) ==
[2020-07-17] MEDS ORDERED: RAPID SEQUENCE INDUCTION BAG ONE (17:46)
--- NOTE | 2020-07-17 17:53 | Emergency Department Note ---
History of Present Illness General Chief complaint: Confusion Stated complaint: AMS, Time Seen by Provider: 07/17/20 17:44 Source: EMS Mode of arrival: EMS Limitations: altered mental status History of Present Illness Provider complaint: Altered mental status Onset (ago): unknown This an 80-year-old male brought in from [facility] by EMS due to altered mental status. EMS reports that staff they reported to them patient had a syncopal episode yesterday, and then again this morning at 8 AM. They state patient was last seen in his usual state of health yesterday morning prior to the first syncopal event. They state on their arrival patient was tachypneic and had oxygen saturations of 80% on room air, they quickly placed him on a nonrebreather at 10 L/min and his oxygenation improved. Patient unable to provide any additional history. They state for them patient has been unre sponsive despite eyes being open, will not otherwise communicate verbally, and no other response to painful stimuli. They also noted patient has been hypertensive and diaphoretic. They state they did check a blood sugar which was greater than 200 in route. Patient did seem to be incontinent of both urine and stool. I states staff had not no other details to add, however patient's paperwork is extensive is patient has multiple medical problems. State patient is on aspirin and Plavix, no other blood thinners. Pt seen during a time of high acuity and national emergency pandemic while wearing PPE. Home Medications Home Medications Medication Instructions Recorded Confirmed Type carvedilol [Coreg] 18.75 mg PO BIDM 09/07/18 07/17/20 History clopidogrel [Plavix] 75 mg PO HS 09/07/18 07/17/20 History dicyclomine 20 mg PO Q6 PRN 09/07/18 07/17/20 History furosemide [Lasix] 40 mg PO 3XWK 09/07/18 07/17/20 History losartan [Cozaar] 100 mg PO QAM 09/07/18 07/17/20 History multivitamin 1 tab PO QDD 09/07/18 07/17/20 History nitroglycerin [Nitrostat] 0.4 mg SUBLINGUAL UD PRN 09/07/18 07/17/20 History hydralazine 12.5 mg PO TIDM 12/25/18 07/17/20 History Fiber Laxative (methylcellulo) 500 mg PO TIDM 02/01/20 07/17/20 History furosemide 20 mg PO 4XWK 02/01/20 07/17/20 History metformin 500 mg PO BIDM 02/01/20 07/17/20 History acetaminophen 1,000 mg PO Q8H #30 tab 02/10/20 07/17/20 Rx bisacodyl 10 mg UT DAILY PRN #30 ea 02/10/20 07/17/20 Rx ergocalciferol (vitamin D2) 50,000 unit PO Q7D@0900 #5 cap 02/10/20 07/17/20 Rx ferrous sulfate 325 mg PO TIDM #90 tab 02/10/20 07/17/20 Rx aspirin [Aspir-81] 81 mg PO HS 06/11/20 07/17/20 History dicyclomine 20 mg PO BID 06/11/20 07/17/20 History hydrocortisone [Anusol-HC] 1 applic UT BID 06/11/20 07/17/20 History loperamide [Imodium A-D] 2 mg PO Q4H PRN 06/11/20 07/17/20 History Saccharomyces boulardii [Florastor] 250 mg PO BID 07/17/20 07/17/20 History fluticasone propionate 2 spray INTRANASAL DAILY 07/17/20 07/17/20 History levetiracetam [Keppra] 500 mg PO BID 07/17/20 07/17/20 History omeprazole 40 mg PO DAILY 07/17/20 07/17/20 History oxycodone [Roxicodone] 5 mg PO Q6 PRN 07/17/20 07/17/20 History potassium chloride [Klor-Con M20] 20 meq PO AMHS 07/17/20 07/17/20 History rosuvastatin 5 mg PO HS 07/17/20 07/17/20 History sertraline 75 mg PO HS 07/17/20 07/17/20 History Allergies Allergy/AdvReac Type Severity Reaction Status Date / Time tramadol Allergy Severe seizures Verified 07/17/20 21:24 iodine Allergy Intermediate airway Verified 07/17/20 21:24 edema oxycodone Allergy Intermediate "itchiness Verified 07/17/20 21:24 all over" codeine AdvReac Intermediate hallucinations, Verified 07/17/20 21:24 depression ANCELMO Inhibitors AdvReac Mild COUGHING Verified 07/17/20 21:24 felodipine AdvReac Mild cough Verified 07/17/20 21:24 Past Med/Surg History Medical History Anemia HX AV block "s/p pacemaker" Benign prostatic hyperplasia Carotid disease, bilateral "asymptomatic" Chronic kidney disease Coronary artery disease "s/p ID" Depression Diabetes mellitus, type II Dyslipidemia GERD (gastroesophageal reflux disease) History of skin cancer Hypertension Left bundle branch block Malignant neoplasm of rectum (04/02/15) "Rectal bleeding Status post colonoscopy and biopsy 04/02/2015 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 Status post endoscopic ultrasound stage [id number] Neoadjuvant radiation and chemotherapy Chemotherapy comprised of Xeloda Status post completion of radiation therapy 06/24/2015 received 5460 cGy Status post rectosigmoid resection 08/27/2015 ypT2 ypN0 M0 Status post ileostomy closure 04/14/2016, gait by small bowel obstruction and then hemorrhage Status post CVA and then slow wound healing" On 01/20/16 16:12 Celeste Burrell wrote "Rectal bleeding Status post colonoscopy and biopsy 04/02/2015 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 Status post endoscopic ultrasound stage [id number] Neoadjuvant radiation and chemotherapy Chemotherapy comprised of Xeloda Status post completion of radiation therapy 06/24/2015 received 5460 cGy Status post rectosigmoid resection 08/27/2015 ypT2 ypN0 M0" On 07/02/15 10:41 Celeste Burrell wrote "Rectal bleeding Status post colonoscopy and biopsy 04/02/2015 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 Status post endoscopic ultrasound stage [id number] Neoadjuvant radiation and chemotherapy Chemotherapy comprised of Xeloda Status post completion of radiation therapy 06/24/2015 received 5460 cGy" Osteoporosis Seizure UNSPECIFIED Stroke Vitamin D deficiency Surgical History H/O ileostomy History of esophagogastroduodenoscopy (EGD) S/P colon resection Status post cardiac pacemaker procedure "initial 2005, generator change 2011" Status post cholecystectomy Status post coronary artery bypass grafting "[place]. [place] [facility] [place] SVG left circumflex" Status post shoulder surgery Status post tonsillectomy Family History Other Family history non-contributory Social History Smoking Status: Unknown if ever smoked Second Hand Exposure: No; Hx Substance Use: No Preferred Language: Uzbek Communication Ability: Effective Biometrician Required: No Beliefs That Will Affect Care: None Current Living Situation: Senior Care Feels Safe at Home: Yes Review of Systems Unobtainable due to cognitive status Physical Exam Vital Signs Vital Signs - 24 hr 07/17/20 17:41 07/17/20 17:48 07/17/20 17:51 Temperature Temperature Source Pulse Rate 112 H 111 H 108 H Pulse Rate [Right Finger] Pulse Rate from SpO2 Sensor 111 H Respiratory Rate 32 H 28 H 32 H Respiratory Effort / Characteristics Spontaneous Respiratory Pattern Tachypnea Blood Pressure 211/127 H 211/127 H Blood Pressure Mean 151 155 Pulse Oximetry 96 94 94 Oxygen Delivery Method Non-rebreather Oxygen Flow Rate 10 Fraction of Inspired Oxygen 40 Sepsis Recent Fever Within 48 Hours No Sepsis New/Unexplained Change in Mental Status Yes Sepsis Action Taken by Nursing Physician Notified 07/17/20 17:53 07/17/20 17:54 07/17/20 17:55 Temperature Temperature Source Pulse Rate Pulse Rate [Right Finger] Pulse Rate from SpO2 Sensor Respiratory Rate Respiratory Effort / Characteristics Respiratory Pattern Blood Pressure Blood Pressure Mean Pulse Oximetry 93 94 Oxygen Delivery Method BiPAP BiPAP Oxygen Flow Rate Fraction of Inspired Oxygen 30 Sepsis Recent Fever Within 48 Hours Sepsis New/Unexplained Change in Mental Status Sepsis Action Taken by Nursing 07/17/20 17:56 07/17/20 18:22 07/17/20 18:30 Temperature Temperature Source Pulse Rate 111 H 107 H 101 H Pulse Rate [Right Finger] Pulse Rate from SpO2 Sensor 111 H 107 H 101 H Respiratory Rate 32 H 28 H 30 H Respiratory Effort / Characteristics Respiratory Pattern Blood Pressure 187/123 H 153/118 H 162/104 H Blood Pressure Mean 148 132 130 Pulse Oximetry 93 94 94 Oxygen Delivery Method BiPAP Oxygen Flow Rate Fraction of Inspired Oxygen Sepsis Recent Fever Within 48 Hours Sepsis New/Unexplained Change in Mental Status Sepsis Action Taken by Nursing 07/17/20 18:39 07/17/20 19:00 07/17/20 19:30 Temperature 38.6 C H Temperature Source Rectal Pulse Rate 104 H 104 H Pulse Rate [Right Finger] Pulse Rate from SpO2 Sensor Respiratory Rate 28 H 32 H Respiratory Effort / Characteristics Respiratory Pattern Blood Pressure 173/113 H 194/106 H Blood Pressure Mean 138 147 Pulse Oximetry 94 94 Oxygen Delivery Method Oxygen Flow Rate Fraction of Inspired Oxygen Sepsis Recent Fever Within 48 Hours Sepsis New/Unexplained Change in Mental Status Sepsis Action Taken by Nursing 07/17/20 19:56 07/17/20 20:01 07/17/20 20:30 Temperature 37.3 C Temperature Source Rectal Pulse Rate 91 H 90 Pulse Rate [Right Finger] Pulse Rate from SpO2 Sensor Respiratory Rate 28 H 26 H Respiratory Effort / Characteristics Respiratory Pattern Blood Pressure 165/109 H 176/96 H Blood Pressure Mean 144 128 Pulse Oximetry 95 96 Oxygen Delivery Method Nasal Cannula Oxygen Flow Rate 4 Fraction of Inspired Oxygen Sepsis Recent Fever Within 48 Hours Sepsis New/Unexplained Change in Mental Status Sepsis Action Taken by Nursing 07/17/20 20:56 07/17/20 21:00 07/17/20 21:16 Temperature Temperature Source Pulse Rate 88 80 Pulse Rate [Right Finger] 88 Pulse Rate from SpO2 Sensor Respiratory Rate 26 H 24 24 Respiratory Effort / Characteristics Non-Labored Spontaneous Respiratory Pattern Blood Pressure 184/100 H 184/95 H Blood Pressure Mean 136 106 Pulse Oximetry 96 99 96 Oxygen Delivery Method Nasal Cannula Oxygen Flow Rate 4 Fraction of Inspired Oxygen Sepsis Recent Fever Within 48 Hours Sepsis New/Unexplained Change in Mental Status Sepsis Action Taken by Nursing 07/17/20 21:30 Temperature Temperature Source Pulse Rate 81 Pulse Rate [Right Finger] Pulse Rate from SpO2 Sensor Respiratory Rate 24 Respiratory Effort / Characteristics Respiratory Pattern Blood Pressure 180/105 H Blood Pressure Mean 142 Pulse Oximetry 97 Oxygen Delivery Method Oxygen Flow Rate Fraction of Inspired Oxygen Sepsis Recent Fever Within 48 Hours Sepsis New/Unexplained Change in Mental Status Sepsis Action Taken by Nursing GENERAL: alert, ill appearing, well nourished, tachypneic, pale, diaphoretic EYE EXAM: normal conjunctiva, PERRL and EOM's grossly intact OROPHARYNX: no exudate, no erythema, lips, buccal mucosa, and tongue normal and mucous membranes are dry NECK: supple, no nuchal rigidity, no adenopathy, non-tender LUNGS: Clear but decreased to auscultation. Normal chest wall mechanics, no w/r/r, tachypneic HEART: no murmurs, S1 normal and S2 normal ABDOMEN: abdomen soft, non-tender, normo-active bowel sounds, no masses, no rebound or guarding. BACK: Back is symmetrical on inspection and there is no deformity, no midline tenderness, no CVA tenderness. SKIN: no rashes and no bruising, no petechiae UPPER EXTREMITIES: upper extremities are grossly normal. nml pulses b/l, no evidence of trauma. LOWER EXTREMITIES: No pitting edema. nml pulses b/l, no evidence of trauma. NEURO EXAM: Patient's eyes are open, will not follow commands, will only moan with saying the patient's name Course Course 1744: Discussed with pt's . Yesterday evening was SOB and confused. States more confused over the last several days. Mostly bedbound. Doesn't wear oxygen. States he wouldn't want intubated or put on a ventilator. 1809: Patient incontinent of stool, nursing staff perform guaiac testing which was heme positive. Will add Protonix drip and type and screen. 1844: Patient slightly more alert, vital signs improving. Awaiting CT imaging. 1924: Vital signs improved, awaiting CT. 2010: Case discussed with Dr. King. 2049: Updated , Yasmeen. Administered Medications Doxycycline Hyclate 100 mg/ (Dextrose) 110 mls @ 50 mls/hr IV NOW STA Stop: 07/18/20 00:49 Last Admin: 07/17/20 23:25 Dose: 50 mls/hr Documented by: [id number] Magnesium Sulfate/Dextrose (Magnesium Sulfate / D5w) 1 gm in 100 mls @ 50 mls/hr IV ONE ONE Stop: 07/18/20 00:37 Last Admin: 07/17/20 23:25 Dose: 50 mls/hr Documented by: [id number] Levetiracetam 500 mg/ Sodium (Chloride) 105 mls @ 420 mls/hr IV Q12H HETAL Stop: 08/16/20 22:59 Last Admin: 07/18/20 00:06 Dose: 420 mls/hr Documented by: [id number] Insulin Aspart (Insulin Aspart 100 Units/Ml 3 Ml Pen) 0 units SC Q6 HETAL Stop: 08/16/20 22:59 Last Admin: 07/17/20 23:32 Dose: 4 units Documented by: [id number] Cosigned by: [id number] Metoprolol Tartrate (Metoprolol Tartrate 1 Mg/Ml Vial) 5 mg IV Q6H HETAL Stop: 08/16/20 23:04 Last Admin: 07/18/20 00:06 Dose: Not Given Documented by: [id number] Discontinued Medications Albuterol (Albut/Ipratrop 3mg/0.5mg Neb 3 Ml Vial) 3 ml NEB NOW STA Stop: 07/17/20 20:15 Last Admin: 07/17/20 20:53 Dose: 3 ml Documented by: [id number] Pantoprazole Sodium (Protonix Bolus/Drip) 0 mls @ 1 mls/hr IV ONE STA Stop: 07/17/20 18:14 Last Admin: 07/17/20 19:46 Dose: Not Given Documented by: [id number] Pantoprazole Sodium 40 mg/ (Dextrose) 100 mls @ 20 mls/hr IV Q5H HETAL Stop: 08/16/20 18:27 Last Infusion: 07/17/20 22:59 Dose: 0 mg/hr, 0 mls/hr Documented by: [id number] Admin: 07/17/20 19:45 Dose: 8 mg/hr, 20 mls/hr Documented by: [id number] Pantoprazole Sodium 80 mg/ (Dextrose) 120 mls @ 400 mls/hr IV NOW ONE Stop: 07/17/20 18:30 Last Infusion: 07/17/20 19:46 Dose: 0 mls/hr Documented by: [id number] Admin: 07/17/20 19:28 Dose: 400 mls/hr Documented by: [id number] Vancomycin HCl 1,250 mg/ (Sodium Chloride) 525 mls @ 200 mls/hr IV NOW ONE Stop: 07/17/20 20:50 Last Infusion: 07/17/20 22:07 Dose: 0 mls/hr Documented by: [id number] Admin: 07/17/20 19:29 Dose: 200 mls/hr Documented by: [id number] Cefepime HCl (Maxipime) 2,000 mg in 20 mls @ 5 mls/min IV NOW STA; Protocol Stop: 07/17/20 18:16 Last Admin: 07/17/20 18:56 Dose: 5 mls/min Documented by: [id number] Acetaminophen (Ofirmev) 1,000 mg in 100 mls @ 400 mls/hr IV NOW STA Stop: 07/17/20 18:28 Last Infusion: 07/17/20 19:15 Dose: 0 mls/hr Documented by: [id number] Admin: 07/17/20 19:00 Dose: 400 mls/hr Documented by: [id number] Sodium Chloride (Nss 1000ml) 1,000 mls @ 250 mls/hr IV .Q4H HETAL Stop: 08/16/20 18:29 Last Infusion: 07/17/20 22:59 Dose: 0 mls/hr Documented by: [id number] Admin: 07/17/20 18:32 Dose: 250 mls/hr Documented by: [id number] Magnesium Sulfate/Dextrose (Magnesium Sulfate / D5w) 1 gm in 100 mls @ 100 mls/hr IV Q1H HETAL Stop: 07/17/20 21:23 Last Infusion: 07/17/20 22:05 Dose: 0 mls/hr Documented by: [id number] Admin: 07/17/20 21:05 Dose: 100 mls/hr Documented by: [id number] Infusion: 07/17/20 21:01 Dose: 0 mls/hr Documented by: [id number] Admin: 07/17/20 19:57 Dose: 100 mls/hr Documented by: [id number] Piperacillin Sod/Tazobactam Sod (Zosyn) 4.5 gm in 120 mls @ 240 mls/hr IV NOW ONE Stop: 07/17/20 21:29 Last Infusion: 07/17/20 21:43 Dose: 0 mls/hr Documented by: [id number] Admin: 07/17/20 21:11 Dose: 240 mls/hr Documented by: [id number] Albumin Human (Albumin 25%) 50 mls @ 50 mls/hr IV ONE ONE Stop: 07/17/20 23:37 Last Infusion: 07/18/20 00:07 Dose: 0 mls/hr Documented by: [id number] Admin: 07/17/20 23:25 Dose: 50 mls/hr Documented by: [id number] Insulin Glargine (Insulin Glargine Solostar 100 Units/Ml 3 Ml Pen) 10 units SC NOW STA Stop: 07/17/20 22:39 Last Admin: 07/17/20 23:30 Dose: 10 units Documented by: [id number] Cosigned by: [id number] Methylprednisolone (Methylprednisolone 40 Mg/Ml Vial) 20 mg IV NOW STA Stop: 07/17/20 20:15 Last Admin: 07/17/20 20:38 Dose: Not Given Documented by: [id number] Methylprednisolone (Methylprednisolone 40 Mg/Ml Vial) Confirm Administered Dose 40 mg .ROUTE .STK-MED ONE Stop: 07/17/20 20:18 Last Admin: 07/17/20 20:24 Dose: 20 mg Documented by: [id number] Metoprolol Tartrate (Metoprolol Tartrate 1 Mg/Ml Vial) 2.5 mg IV NOW STA Stop: 07/17/20 20:33 Last Admin: 07/17/20 21:05 Dose: 2.5 mg Documented by: [id number] Metoprolol Tartrate (Metoprolol Tartrate 1 Mg/Ml Vial) Confirm Administered Dose 5 mg IV .STK-MED ONE Stop: 07/17/20 23:54 Last Admin: 07/17/20 23:58 Dose: 5 mg Documented by: [id number] Miscellaneous (Rapid Sequence Induction Bag) Confirm Administered Dose 1 ea .ROUTE .STK-MED ONE Stop: 07/17/20 17:47 Last Admin: 07/17/20 18:31 Dose: Not Given Documented by: [id number] Critical Care Time Critical Care Time: Yes Total Critical Care Time: 48 Critical care of 48 min performed to assess and manage high likelihood of life- threatening sepsis and altered mental status, involving labs and imaging perf ormed with assessment to evaluate sepsis and AMS diagnosis with frequent reassessment. This time includes bedside time, treatment discussions with patient/family/consultants, documentation time and excludes procedure time. Medical Decision Making Differential Diagnosis Differential diagnoses includes but is not limited to toxic, metabolic, infectious, traumatic, cardiac, neurologic, hematologic, psychiatric and inflamm atory etiologies. Medical Records Attestation: I reviewed the patient's medical records. Home Medications Current Medication List: was personally reviewed by me Laboratory Data Attestation: I reviewed the patient's lab results. Result diagrams: 07/17/20 21:57 07/17/20 17:50 Lab Results 07/17/20 07/17/20 07/17/20 Range/Units 17:50 17:50 17:50 WBC 21.21 H (4.8-10.8) K/uL RBC 4.62 L (4.7-6.1) M/uL Hgb 14.4 (14.0-18.0) g/dL POC Hgb (14.0-18.0) g/dl Hct 42.4 (42-52) % POC Hct (42-52) % MCV 91.8 (80-100) fL MCH 31.2 (25-34) pg MCHC 34.0 (32-36) g/dL RDW Std Deviation 47.9 H (36.4-46.3) fL RDW Coeff of Arabella 14.4 (11.5-14.5) % Plt Count 168 (130-400) K/uL MPV 10.0 (7.4-10.4) fL Immature Gran % (Auto) 0.9 % Neut % (Auto) 91.9 % Lymph % (Auto) 4.4 % [place] % (Auto) 2.8 % Eos % (Auto) 0.0 % Baso % (Auto) 0.0 % Neut # (Auto) 19.47 H (1.4-6.5) K/uL Lymph # (Auto) 0.93 L (1.2-3.4) K/uL [place] # (Auto) 0.59 (0.11-0.59) K/uL Eos # (Auto) 0.01 (0-0.5) K/uL Baso # (Auto) 0.01 (0-0.2) K/uL Immature Gran # (Auto) 0.20 H (0.00-0.02) K/uL PT 12.8 H (9.0-12.0) Seconds INR 1.2 H (0.9-1.1) APTT 26.2 (21.0-31.0) Seconds PTT Ratio 0.9 POC pH (7.35-7.45) POC pCO2 (35-46) mmHg POC pO2 (80-95) mmHg POC HCO3 (19-24) ricardo/L POC Total CO2 (24-31) mmol/L POC Base Excess (-9-1.8) ricardo/L POC ABG O2 Sat (90-95) % POC Sodium (135-144) mmol/L Sodium 145 (136-145) mmol/L POC Potassium (3.3-5.0) mmol/L Potassium 3.6 (3.5-5.1) mmol/L Chloride 111 H (98-107) mmol/L Carbon Dioxide 23 (21-32) mmol/L Anion Gap 11.0 (3-11) BUN 19 H (7-18) mg/dl Creatinine 1.12 (0.6-1.4) mg/dl Est Cr Clr Drug Dosing Not Reportable Est GFR ( Amer) 71.0 Est GFR (Non-Af Amer) 61.3 BUN/Creatinine Ratio 16.9 (10-20) Glucose 228 H (70-99) mg/dl Lactate (0.4-2.0) mmol/L Calcium 8.7 (8.5-10.1) mg/dl Magnesium 1.5 L (1.8-2.4) mg/dl Total Bilirubin 0.6 (0.2-1) mg/dl AST 34 (15-37) U/L ALT 36 (12-78) U/L Alkaline Phosphatase 132 H (45-117) U/L Troponin I 0.230 H* (0-0.045) ng/ml NT-Pro-B Natriuret Pep 43849 H (0-1800) pg/ml Total Protein 7.5 (6.4-8.2) gm/dl Albumin 3.2 L (3.4-5.0) gm/dl Globulin 4.3 H (2.5-4.0) gm/dl Albumin/Globulin Ratio 0.7 L (0.9-2) Procalcitonin (0-0.5) ng/ml Urine Color Urine Appearance (Clear) Urine pH (4.5-7.5) Ur Specific [place] (1.000-1.030) Urine Protein (Negative) Urine Glucose (UA) (Negative) Urine Ketones (Negative) Urine Blood (Negative) Urine Nitrite (Negative) Urine Bilirubin (Negative) Urine Urobilinogen (Negative) Ur Leukocyte Esterase (Negative) Urine WBC (Auto) (0-5) /hpf Urine RBC (Auto) (0-4) /hpf U Hyaline Cast (Auto) (0-5) /lpf U Epithel Cells (Auto) (0-5) /lpf Urine Bacteria (Auto) (Negative) Ur Renal Epithelial Cell COVID-19 Eval Order COVID-19 PCR (Negative) Blood Type Antibody Screen 09/11/20 09/11/20 09/11/20 Range/Units 17:50 17:50 17:50 WBC (4.8-10.8) K/uL RBC (4.7-6.1) M/uL Hgb (14.0-18.0) g/dL POC Hgb (14.0-18.0) g/dl Hct (42-52) % POC Hct (42-52) % MCV (80-100) fL MCH (25-34) pg MCHC (32-36) g/dL RDW Std Deviation (36.4-46.3) fL RDW Coeff of Arabella (11.5-14.5) % Plt Count (130-400) K/uL MPV (7.4-10.4) fL Immature Gran % (Auto) % Neut % (Auto) % Lymph % (Auto) % [place] % (Auto) % Eos % (Auto) % Baso % (Auto) % Neut # (Auto) (1.4-6.5) K/uL Lymph # (Auto) (1.2-3.4) K/uL [place] # (Auto) (0.11-0.59) K/uL Eos # (Auto) (0-0.5) K/uL Baso # (Auto) (0-0.2) K/uL Immature Gran # (Auto) (0.00-0.02) K/uL PT (9.0-12.0) Seconds INR (0.9-1.1) APTT (21.0-31.0) Seconds PTT Ratio POC pH (7.35-7.45) POC pCO2 (35-46) mmHg POC pO2 (80-95) mmHg POC HCO3 (19-24) ricardo/L POC Total CO2 (24-31) mmol/L POC Base Excess (-9-1.8) ricardo/L POC ABG O2 Sat (90-95) % POC Sodium (135-144) mmol/L Sodium (136-145) mmol/L POC Potassium (3.3-5.0) mmol/L Potassium (3.5-5.1) mmol/L Chloride (98-107) mmol/L Carbon Dioxide (21-32) mmol/L Anion Gap (3-11) BUN (7-18) mg/dl Creatinine (0.6-1.4) mg/dl Est Cr Clr Drug Dosing Est GFR ( Amer) Est GFR (Non-Af Amer) BUN/Creatinine Ratio (10-20) Glucose (70-99) mg/dl Lactate 2.1 H* (0.4-2.0) mmol/L Calcium (8.5-10.1) mg/dl Magnesium (1.8-2.4) mg/dl Total Bilirubin (0.2-1) mg/dl AST (15-37) U/L ALT (12-78) U/L Alkaline Phosphatase (45-117) U/L Troponin I (0-0.045) ng/ml NT-Pro-B Natriuret Pep Cancelled (0-1800) pg/ml Total Protein (6.4-8.2) gm/dl Albumin (3.4-5.0) gm/dl Globulin (2.5-4.0) gm/dl Albumin/Globulin Ratio (0.9-2) Procalcitonin 0.16 (0-0.5) ng/ml Urine Color Urine Appearance (Clear) Urine pH (4.5-7.5) Ur Specific [place] (1.000-1.030) Urine Protein (Negative) Urine Glucose (UA) (Negative) Urine Ketones (Negative) Urine Blood (Negative) Urine Nitrite (Negative) Urine Bilirubin (Negative) Urine Urobilinogen (Negative) Ur Leukocyte Esterase (Negative) Urine WBC (Auto) (0-5) /hpf Urine RBC (Auto) (0-4) /hpf U Hyaline Cast (Auto) (0-5) /lpf U Epithel Cells (Auto) (0-5) /lpf Urine Bacteria (Auto) (Negative) Ur Renal Epithelial Cell COVID-19 Eval Order COVID-19 PCR (Negative) Blood Type Antibody Screen 07/17/20 07/17/20 07/17/20 Range/Units 17:53 18:25 18:29 WBC (4.8-10.8) K/uL RBC (4.7-6.1) M/uL Hgb (14.0-18.0) g/dL POC Hgb 14.3 (14.0-18.0) g/dl Hct (42-52) % POC Hct 42 (42-52) % MCV (80-100) fL MCH (25-34) pg MCHC (32-36) g/dL RDW Std Deviation (36.4-46.3) fL RDW Coeff of Arabella (11.5-14.5) % Plt Count (130-400) K/uL MPV (7.4-10.4) fL Immature Gran % (Auto) % Neut % (Auto) % Lymph % (Auto) % [place] % (Auto) % Eos % (Auto) % Baso % (Auto) % Neut # (Auto) (1.4-6.5) K/uL Lymph # (Auto) (1.2-3.4) K/uL [place] # (Auto) (0.11-0.59) K/uL Eos # (Auto) (0-0.5) K/uL Baso # (Auto) (0-0.2) K/uL Immature Gran # (Auto) (0.00-0.02) K/uL PT (9.0-12.0) Seconds INR (0.9-1.1) APTT (21.0-31.0) Seconds PTT Ratio POC pH 7.42 (7.35-7.45) POC pCO2 37 (35-46) mmHg POC pO2 94 (80-95) mmHg POC HCO3 24 (19-24) ricardo/L POC Total CO2 25 (24-31) mmol/L POC Base Excess -1.0 (-9-1.8) ricardo/L POC ABG O2 Sat 98.0 H (90-95) % POC Sodium 144 (135-144) mmol/L Sodium (136-145) mmol/L POC Potassium 3.5 (3.3-5.0) mmol/L Potassium (3.5-5.1) mmol/L Chloride (98-107) mmol/L Carbon Dioxide (21-32) mmol/L Anion Gap (3-11) BUN (7-18) mg/dl Creatinine (0.6-1.4) mg/dl Est Cr Clr Drug Dosing Est GFR ( Amer) Est GFR (Non-Af Amer) BUN/Creatinine Ratio (10-20) Glucose (70-99) mg/dl Lactate (0.4-2.0) mmol/L Calcium (8.5-10.1) mg/dl Magnesium (1.8-2.4) mg/dl Total Bilirubin (0.2-1) mg/dl AST (15-37) U/L ALT (12-78) U/L Alkaline Phosphatase (45-117) U/L Troponin I (0-0.045) ng/ml NT-Pro-B Natriuret Pep (0-1800) pg/ml Total Protein (6.4-8.2) gm/dl Albumin (3.4-5.0) gm/dl Globulin (2.5-4.0) gm/dl Albumin/Globulin Ratio (0.9-2) Procalcitonin (0-0.5) ng/ml Urine Color Dark Yellow Urine Appearance Cloudy A (Clear) Urine pH 5.0 (4.5-7.5) Ur Specific [place] 1.032 H (1.000-1.030) Urine Protein 3+ H (Negative) Urine Glucose (UA) Negative (Negative) Urine Ketones Trace H (Negative) Urine Blood 3+ H (Negative) Urine Nitrite Negative (Negative) Urine Bilirubin Negative (Negative) Urine Urobilinogen Negative (Negative) Ur Leukocyte Esterase Trace H (Negative) Urine WBC (Auto) 10-30 H (0-5) /hpf Urine RBC (Auto) >30 H (0-4) /hpf U Hyaline Cast (Auto) 1-5 (0-5) /lpf U Epithel Cells (Auto) >30 H (0-5) /lpf Urine Bacteria (Auto) 1+ H (Negative) Ur Renal Epithelial Cell Not Reportable COVID-19 Eval Order COVID-19 PCR (Negative) Blood Type Cancelled Antibody Screen Cancelled 07/17/20 07/17/20 07/17/20 Range/Units 19:31 20:27 20:27 WBC (4.8-10.8) K/uL RBC (4.7-6.1) M/uL Hgb (14.0-18.0) g/dL POC Hgb (14.0-18.0) g/dl Hct (42-52) % POC Hct (42-52) % MCV (80-100) fL MCH (25-34) pg MCHC (32-36) g/dL RDW Std Deviation (36.4-46.3) fL RDW Coeff of Arabella (11.5-14.5) % Plt Count (130-400) K/uL MPV (7.4-10.4) fL Immature Gran % (Auto) % Neut % (Auto) % Lymph % (Auto) % [place] % (Auto) % Eos % (Auto) % Baso % (Auto) % Neut # (Auto) (1.4-6.5) K/uL Lymph # (Auto) (1.2-3.4) K/uL [place] # (Auto) (0.11-0.59) K/uL Eos # (Auto) (0-0.5) K/uL Baso # (Auto) (0-0.2) K/uL Immature Gran # (Auto) (0.00-0.02) K/uL PT (9.0-12.0) Seconds INR (0.9-1.1) APTT (21.0-31.0) Seconds PTT Ratio POC pH (7.35-7.45) POC pCO2 (35-46) mmHg POC pO2 (80-95) mmHg POC HCO3 (19-24) ricardo/L POC Total CO2 (24-31) mmol/L POC Base Excess (-9-1.8) ricardo/L POC ABG O2 Sat (90-95) % POC Sodium (135-144) mmol/L Sodium (136-145) mmol/L POC Potassium (3.3-5.0) mmol/L Potassium (3.5-5.1) mmol/L Chloride (98-107) mmol/L Carbon Dioxide (21-32) mmol/L Anion Gap (3-11) BUN (7-18) mg/dl Creatinine (0.6-1.4) mg/dl Est Cr Clr Drug Dosing Est GFR ( Amer) Est GFR (Non-Af Amer) BUN/Creatinine Ratio (10-20) Glucose (70-99) mg/dl Lactate (0.4-2.0) mmol/L Calcium (8.5-10.1) mg/dl Magnesium (1.8-2.4) mg/dl Total Bilirubin (0.2-1) mg/dl AST (15-37) U/L ALT (12-78) U/L Alkaline Phosphatase (45-117) U/L Troponin I (0-0.045) ng/ml NT-Pro-B Natriuret Pep (0-1800) pg/ml Total Protein (6.4-8.2) gm/dl Albumin (3.4-5.0) gm/dl Globulin (2.5-4.0) gm/dl Albumin/Globulin Ratio (0.9-2) Procalcitonin (0-0.5) ng/ml Urine Color Urine Appearance (Clear) Urine pH (4.5-7.5) Ur Specific [place] (1.000-1.030) Urine Protein (Negative) Urine Glucose (UA) (Negative) Urine Ketones (Negative) Urine Blood (Negative) Urine Nitrite (Negative) Urine Bilirubin (Negative) Urine Urobilinogen (Negative) Ur Leukocyte Esterase (Negative) Urine WBC (Auto) (0-5) /hpf Urine RBC (Auto) (0-4) /hpf U Hyaline Cast (Auto) (0-5) /lpf U Epithel Cells (Auto) (0-5) /lpf Urine Bacteria (Auto) (Negative) Ur Renal Epithelial Cell COVID-19 Eval Order Covid19 Done at [facility] COVID-19 PCR NEGATIVE (Negative) Blood Type O Positive Antibody Screen NEGATIVE 07/17/20 Range/Units 20:46 WBC (4.8-10.8) K/uL RBC (4.7-6.1) M/uL Hgb (14.0-18.0) g/dL POC Hgb (14.0-18.0) g/dl Hct (42-52) % POC Hct (42-52) % MCV (80-100) fL MCH (25-34) pg MCHC (32-36) g/dL RDW Std Deviation (36.4-46.3) fL RDW Coeff of Arabella (11.5-14.5) % Plt Count (130-400) K/uL MPV (7.4-10.4) fL Immature Gran % (Auto) % Neut % (Auto) % Lymph % (Auto) % [place] % (Auto) % Eos % (Auto) % Baso % (Auto) % Neut # (Auto) (1.4-6.5) K/uL Lymph # (Auto) (1.2-3.4) K/uL [place] # (Auto) (0.11-0.59) K/uL Eos # (Auto) (0-0.5) K/uL Baso # (Auto) (0-0.2) K/uL Immature Gran # (Auto) (0.00-0.02) K/uL PT (9.0-12.0) Seconds INR (0.9-1.1) APTT (21.0-31.0) Seconds PTT Ratio POC pH (7.35-7.45) POC pCO2 (35-46) mmHg POC pO2 (80-95) mmHg POC HCO3 (19-24) ricardo/L POC Total CO2 (24-31) mmol/L POC Base Excess (-9-1.8) ricardo/L POC ABG O2 Sat (90-95) % POC Sodium (135-144) mmol/L Sodium (136-145) mmol/L POC Potassium (3.3-5.0) mmol/L Potassium (3.5-5.1) mmol/L Chloride (98-107) mmol/L Carbon Dioxide (21-32) mmol/L Anion Gap (3-11) BUN (7-18) mg/dl Creatinine (0.6-1.4) mg/dl Est Cr Clr Drug Dosing Est GFR ( Amer) Est GFR (Non-Af Amer) BUN/Creatinine Ratio (10-20) Glucose (70-99) mg/dl Lactate 1.9 (0.4-2.0) mmol/L Calcium (8.5-10.1) mg/dl Magnesium (1.8-2.4) mg/dl Total Bilirubin (0.2-1) mg/dl AST (15-37) U/L ALT (12-78) U/L Alkaline Phosphatase (45-117) U/L Troponin I (0-0.045) ng/ml NT-Pro-B Natriuret Pep (0-1800) pg/ml Total Protein (6.4-8.2) gm/dl Albumin (3.4-5.0) gm/dl Globulin (2.5-4.0) gm/dl Albumin/Globulin Ratio (0.9-2) Procalcitonin (0-0.5) ng/ml Urine Color Urine Appearance (Clear) Urine pH (4.5-7.5) Ur Specific [place] (1.000-1.030) Urine Protein (Negative) Urine Glucose (UA) (Negative) Urine Ketones (Negative) Urine Blood (Negative) Urine Nitrite (Negative) Urine Bilirubin (Negative) Urine Urobilinogen (Negative) Ur Leukocyte Esterase (Negative) Urine WBC (Auto) (0-5) /hpf Urine RBC (Auto) (0-4) /hpf U Hyaline Cast (Auto) (0-5) /lpf U Epithel Cells (Auto) (0-5) /lpf Urine Bacteria (Auto) (Negative) Ur Renal Epithelial Cell COVID-19 Eval Order COVID-19 PCR (Negative) Blood Type Antibody Screen Imaging Data Radiologist's Impression: XR chest 1V portable CLINICAL HISTORY: SEPSIS COMPARISON STUDY: Chest radiograph January 24, 2020. Chest CT September 07, 2018. FINDINGS: Note is made of a left-sided pacemaker, cholecystectomy clips and median sternotomy wires. There is moderate cardiomegaly. A small left pleural effusion is unchanged. Left basilar opacity is unchanged. There may be a trace right pleural effusion. There is no pneumothorax. Mild interstitial thickening is noted. Elevation of the left hemidiaphragm is unchanged. IMPRESSION: 1. Mild interstitial thickening. This favors mild pulmonary edema. An infectious process could appear similar. 2. No change in a small left pleural effusion with left basilar opacity which favors atelectasis. Trace right pleural effusion. ACT 112: Negative or not required by law. Electronically signed by: Cory Waller M.D. 07/17/2020 6:[address] OF THE ABDOMEN AND PELVIS WITHOUT CONTRAST CLINICAL HISTORY: unresponsive, gi bleed COMPARISON STUDY: CT of the abdomen and pelvis November 12, 2018. TECHNIQUE: Axial images of the abdomen and pelvis were obtained without IV contrast. Images were reviewed in the axial, sagittal, and coronal planes. Automated exposure control was utilized for the study. A dose lowering technique was utilized adhering to the principles of ALARA. FINDINGS: Visualized portions of the lower chest demonstrate trace right and small left pleural effusions. There is extensive left lower lobe airspace opacity with volume loss. There is bilateral gynecomastia. Evaluation of the abdomen and pelvis is suboptimal on this unenhanced examination. No pneumatosis, free air or portal venous gas is present. There is no significant biliary ductal dilatation status post cholecystectomy. Unenhanced images of the liver, spleen, adrenal glands and pancreas are unremarkable. There is no hydronephrosis. There is no evidence for a bowel obstruction. Sensitivity for detection mucosal lesions is diminished on this exam. Presacral/perirectal infiltration/soft tissue is unchanged since CT of November 12, 2018. Note is made of enlargement of the prostate. Bladder wall thickening is noted. There are calcifications within the right posterior lateral wall the bladder. No lymphadenopathy is present. There are multiple lower thoracic and lumbar spine compression fractures which are likely old. Right femoral internal fixation hardware is noted. Note is made of a comminuted displaced fractures of the morillo of the left acetabulum. There is no proximal left femoral fracture. No acute pelvic fractures identified. Sacroiliac joints are intact. IMPRESSION: 1. Extensive left acetabular fracture which involves all morillo of the left acetabulum. Fracture appears acute. No proximal left femoral fracture. 2. Small left pleural effusion with left basilar opacity could reflect atelectasis or consolidation. 3. No bowel obstruction. Stable presacral/perirectal infiltration and soft tissue. This is likely post therapeutic. 4. Moderate bladder wall thickening with apparent calcifications within the right posterior lateral wall of the bladder. These findings are nonspecific and may be correlated with urinalysis and urine cytology. ACT 112: Negative or not required by law. Electronically signed by: Cory Waller M.D. 07/17/2020 7:[address] OF THE HEAD WITHOUT CONTRAST CLINICAL HISTORY: unresponsive COMPARISON STUDY: Head CT February 01, 2020. TECHNIQUE: Helical axial images of the head were obtained without IV contrast. Automated exposure control was utilized for the study. A dose lowering technique was utilized adhering to the principles of ALARA. FINDINGS: No acute intracranial hemorrhage, midline shift or mass effect is present. Ventricular system is stable. Basilar cisterns are patent. There are no extra axial collections. 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 These are unchanged. White matter hypodensity suggests small vessel disease. There are no findings to suggest acute dural sinus thrombosis or acute territorial inf arct. No calvarial fracture is present. IMPRESSION: No acute intracranial findings. No change in appearance of the brain. ACT 112: Negative or not required by law. Electronically signed by: Cory Waller M.D. 07/17/2020 7:33 PM ECG Data Attestation: I personally reviewed and interpreted this ECG as follows: Indication: + altered mental status Rate (beats per minute): 110 Rhythm: + other (paced) ECG Intervals/blocks: + IVCD and + Prolonged QT ECG [place]: + Left axis deviation ECG ST segments: + Nonspecific ST abnormalities Blood Pressure Blood Pressure Findings: Elevated blood pressure Blood Pressure Disposition: further management by hospitalist MDM Narrative This is an elderly male brought in from a local [facility] facility via EMS after being found to have altered mental status and trouble breathing after 2 syncopal events over the last 24 to 36 hours per the report from EMS. On their arrival patient tachypneic and hypoxic, eyes open but patient not otherwise responding to verbal or painful stimuli. On arrival here patient's eyes were open, he would occasionally moan, oxygen saturations were improved after EMS put him on 10 L via nonrebreather. Given his concern for possible need for definitive airway and patient being listed as a full code, I contacted the to discuss resuscitation status. She states patient is a DNI. I did update her on his condition as well as pending tests. Patient slowly seemed to be more responsive here. Patient placed on BiPAP, labs drawn and sent, chest x-ray performed, and patient then sent for CT imaging. Cultures drawn and sent to due to concern for possible sepsis. Patient's vital signs did improve, significant hypertension improved on its own without any additional intervention, and patient ultimately weaned down to nasal cannula. Patient's CT head was reassuring, and CT of the abdomen and pelvis did not reveal acute GI or vascular pathology, was suggestive of possible left lower lobe infiltrate. Given tachypnea and hypoxia noted on scene I feel this could be a potential source of sepsis. Patient did have a significantly elevated white blood cell count, and initially elevated lactic acid. Patient was not given 30 mL/KG of fluids due to well-documented history of cardiomyopathy and poor ejection fraction. Patient's EKG paced and otherwise unremarkable, patient with known left bundle branch block. Patient's called and updated after results were returned, and case discussed with hospitalist for additional evaluation. An order was placed for continuous cardiac monitoring. The monitor shows a rate of _90_ with _paced_ rhythm. Impression & Plan Sepsis, Hypertension, Altered mental status, Pneumonia, Acute UTI (urinary tract infection), Hypoxia, Elevated troponin Discharge Plan Visit Data Chief Complaint: Confusion Stated Complaint: AMS, ED Provider: Zunilda Shepherd Discharge Problem: Sepsis, Hypertension, Altered mental status, Pneumonia, Acute UTI (urinary tract infection), Hypoxia, Elevated troponin Patient Disposition: Admitted As Inpatient Discharge Instructions Interventions: ED Discharge Assessment Last Done: 07/17/20 22:17 Discharge Problem: Sepsis Qualifiers: Sepsis type: sepsis due to unspecified organism Sepsis acute organ dysfunction status: with acute organ dysfunction Severe sepsis acute organ dysfunction type: acute respiratory failure Acute respiratory failure type: with hypoxia Severe sepsis shock status: without septic shock Qualified Code(s): A41.9 - Sepsis, unspecified organism Hypertension Qualifiers: Hypertension type: essential hypertension Qualified Code(s): I10 - Essential (primary) hypertension Altered mental status Qualifiers: Altered mental status type: unspecified Qualified Code(s): R41.82 - Altered mental status, unspecified Pneumonia Qualifiers: Pneumonia type: due to unspecified organism Laterality: left Lung location: lower lobe of lung Qualified Code(s): J18.9 - Pneumonia, unspecified organism
[2020-07-17 18:00] LABS: Basophils # (auto) 0.01 K/uL (0-0.2); Eosinophils # (auto) 0.01 K/uL (0-0.5); Hematocrit (blood only) 42.4 % (42-52); Hemoglobin 14.4 g/dL (14.0-18.0); Immature Granulocytes % (auto) 0.9 %; Lymphocytes # (auto) 0.93 K/uL (1.2-3.4); Lymphocytes % (auto) 4.4 %; Mean Corpuscular Hemoglobin 31.2 pg (25-34); Mean Corpuscular Volume 91.8 fL (80-100); Monocytes # (auto) 0.59 K/uL (0.11-0.59); Monocytes % (auto) 2.8 %; Neutrophils # (auto) 19.47 K/uL (1.4-6.5); Neutrophils % (auto) 91.9 %; Platelet Count 168 K/uL (130-400); RDW Coefficient of Variation 14.4 % (11.5-14.5); RDW Standard Deviation 47.9 fL (36.4-46.3); Red Blood Count 4.62 M/uL (4.7-6.1); White Blood Count 21.21 K/uL (4.8-10.8)
[2020-07-17 18:07] LABS: iSTAT Arterial Blood Gas HCO3 24 meg/L (19-24); iSTAT Arterial Blood Gas pCO2 37 mmHg (35-46); iSTAT Arterial Blood Gas pH 7.42 (7.35-7.45); iSTAT Arterial Blood Gas pO2 94 mmHg (80-95); iSTAT Carbon Dioxide 25 mmol/L (24-31); iSTAT Hematocrit 42 % (42-52); iSTAT Hemoglobin 14.3 g/dl (14.0-18.0); iSTAT Potassium 3.5 mmol/L (3.3-5.0); iSTAT Sodium 144 mmol/L (135-144)
[2020-07-17] MEDS ORDERED: VANCOMYCIN HCL 1,250 MG in SODIUM CHLORIDE 0.9% 500 ML IV ONE (18:13)
[2020-07-17] MEDS ORDERED: PANTOprazole 80 MG in DEXTROSE 5% 100 ML IV ONE (18:13)
[2020-07-17] MEDS ORDERED: PANTOPRAZOLE BOLUS/DRIP 1 EA IV STA (18:13)
[2020-07-17] MEDS ORDERED: VANCOMYCIN CONSULT ACTIVE PRN ×2 (18:13)
[2020-07-17] MEDS ORDERED: CEFEPIME 2,000 MG/20 ML VIAL IV STA (18:13)
[2020-07-17 18:14] LABS: INR 1.2 (0.9-1.1); Partial Thromboplastin Ratio 0.9; Partial Thromboplastin Time 26.2 Seconds (21.0-31.0); Prothrombin Time 12.8 Seconds (9.0-12.0)
[2020-07-17] MEDS ORDERED: ACETAMINOPHEN 1,000 MG/100 ML VIAL IV STA (18:14)
[2020-07-17 18:17] LABS: Alanine Aminotransferase 36 U/L (12-78); Albumin Level 3.2 gm/dl (3.4-5.0); Aspartate Aminotransferase 34 U/L (15-37); BUN Creatinine Ratio 16.9 (10-20); Blood Urea Nitrogen 19 mg/dl (7-18); Calcium 8.7 mg/dl (8.5-10.1); Carbon Dioxide 23 mmol/L (21-32); Chloride 111 mmol/L (98-107); Est GFR (Non-African American) 61.3; Glucose 228 mg/dl (70-99); Magnesium 1.5 mg/dl (1.8-2.4); Potassium 3.6 mmol/L (3.5-5.1); Sodium 145 mmol/L (136-145)
[2020-07-17 18:24] LABS: Albumin Globulin Ratio 0.7 (0.9-2); Alkaline Phosphatase 132 U/L (45-117); Bilirubin,Total 0.6 mg/dl (0.2-1); Globulin 4.3 gm/dl (2.5-4.0); Total Protein 7.5 gm/dl (6.4-8.2)
[2020-07-17] MEDS ORDERED: PANTOprazole 40 MG in DEXTROSE 5% 100 ML IV SCH (18:28)
[2020-07-17] MEDS ORDERED: SODIUM CHLORIDE 0.9% 1000ML 1,000 ML IV SCH (18:30)
--- NOTE | 2020-07-17 18:39 | XRay Report ---
XR chest 1V portable CLINICAL HISTORY: SEPSIS COMPARISON STUDY: Chest radiograph January 24, 2020. Chest CT September 07, 2018. FINDINGS: Note is made of a left-sided pacemaker, cholecystectomy clips and median sternotomy wires. There is moderate cardiomegaly. A small left pleural effusion is unchanged. Left basilar opacity is u nchanged. There may be a trace right pleural effusion. There is no pneumothorax. Mild interstitial th ickening is noted. Elevation of the left hemidiaphragm is unchanged. IMPRESSION: 1. Mild interstitial thickening. This favors mild pulmonary edema. An infectious process could appear similar. 2. No change in a small left pleural effusion with left basilar opacity which favors atelectasis. Tra ce right pleural effusion. ACT 112: Negative or not required by law. Electronically signed by: Cory Waller M.D. 07/17/2020 6:37 PM
[2020-07-17 19:11] LABS: Appearance Urine Cloudy (Clear); Blood Urine 3+ (Negative); Color Urine Dark Yellow; Epithelial Cell Urine Auto >30 /lpf (0-5); Glucose Urine UA Negative (Negative); Ketones Urine Trace (Negative); Leukocyte Esterase Urine Trace (Negative); Nitrite Urine Negative (Negative); Protein Urine 3+ (Negative); RBC Urine Automated >30 /hpf (0-4); Specific Gravity Urine 1.032 (1.000-1.030); Urobilinogen Urine Negative (Negative)
[2020-07-17 19:16] LABS: Bilirubin Urine Negative (Negative); Ictotest Urine Negative (Negative)
[2020-07-17 19:26] LABS: Bacteria Urine Automated 1+ (Negative)
--- NOTE | 2020-07-17 19:35 | CT Scan Report ---
CT OF THE HEAD WITHOUT CONTRAST CLINICAL HISTORY: unresponsive COMPARISON STUDY: Head CT February 01, 2020. TECHNIQUE: Helical axial images of the head were obtained without IV contrast. Automated exposure con trol was utilized for the study. A dose lowering technique was utilized adhering to the principles o f ALARA. FINDINGS: No acute intracranial hemorrhage, midline shift or mass effect is present. Ventricular syst em is stable. Basilar cisterns are patent. There are no extra axial collections. Old left basal gangl ia infarcts are again noted. These are unchanged. White matter hypodensity suggests small vessel dise ase. There are no findings to suggest acute dural sinus thrombosis or acute territorial infarct. No c alvarial fracture is present. IMPRESSION: No acute intracranial findings. No change in appearance of the brain. ACT 112: Negative or not required by law. Electronically signed by: Cory Waller M.D. 07/17/2020 7:33 PM
--- NOTE | 2020-07-17 19:46 | CT Scan Report ---
CT OF THE ABDOMEN AND PELVIS WITHOUT CONTRAST CLINICAL HISTORY: unresponsive, gi bleed COMPARISON STUDY: CT of the abdomen and pelvis November 12, 2018. TECHNIQUE: Axial images of the abdomen and pelvis were obtained without IV contrast. Images were revi ewed in the axial, sagittal, and coronal planes. Automated exposure control was utilized for the nichole dy. A dose lowering technique was utilized adhering to the principles of ALARA. FINDINGS: Visualized portions of the lower chest demonstrate trace right and small left pleural effus ions. There is extensive left lower lobe airspace opacity with volume loss. There is bilateral gyneco mastia. Evaluation of the abdomen and pelvis is suboptimal on this unenhanced examination. No pneumat osis, free air or portal venous gas is present. There is no significant biliary ductal dilatation sta tus post cholecystectomy. Unenhanced images of the liver, spleen, adrenal glands and pancreas are unr emarkable. There is no hydronephrosis. There is no evidence for a bowel obstruction. Sensitivity for detection mucosal lesions is diminished on this exam. Presacral/perirectal infiltration/soft tissue i s unchanged since CT of November 12, 2018. Note is made of enlargement of the prostate. Bladder wall th ickening is noted. There are calcifications within the right posterior lateral wall the bladder. No l ymphadenopathy is present. There are multiple lower thoracic and lumbar spine compression fractures w hich are likely old. Right femoral internal fixation hardware is noted. Note is made of a comminuted displaced fractures of the morillo of the left acetabulum. There is no proximal left femoral fracture. No acute pelvic fractures identified. Sacroiliac joints are intact. IMPRESSION: 1. Extensive left acetabular fracture which involves all morillo of the left acetabulum. Fracture appea rs acute. No proximal left femoral fracture. 2. Small left pleural effusion with left basilar opacity could reflect atelectasis or consolidation. 3. No bowel obstruction. Stable presacral/perirectal infiltration and soft tissue. This is likely pos t therapeutic. 4. Moderate bladder wall thickening with apparent calcifications within the right posterior lateral w all of the bladder. These findings are nonspecific and may be correlated with urinalysis and urine cy tology. ACT 112: Negative or not required by law. Electronically signed by: Cory Waller M.D. 07/17/2020 7:45 PM
[2020-07-17] MEDS: MAGNESIUM SULFATE / D5W 1 GM/100 ML BAG IV SCH ×2 (19:57→21:05)
[2020-07-17] MEDS ORDERED: ALBUT/IPRATROP 3MG/0.5MG NEB 3 ML VIAL NEB STA (20:14)
[2020-07-17] MEDS ORDERED: METOPROLOL TARTRATE 1 MG/ML VIAL IV STA (20:32)
[2020-07-17] MEDS ORDERED: PIPERACILL/TAZOBAC CONSULT ACTIVE PRN (20:33)
[2020-07-17] MEDS ORDERED: PIPERACILLIN/TAZOBACTAM 4.5 GM/120 ML BAG IV ONE (21:00)
--- NOTE | 2020-07-17 21:00 | History & Physical Report ---
Date of Service July 17, 2020 Assessment & Plan (1) Acute hypoxemic respiratory failure: Secondary to HCAP/likely aspiration pneumonia Known aspiration risk Severe sepsis SIRS plus hypoxemia plus encephalopathy plus lactic acidosis secondary to above Rule out C. difficile given loose stool complaints Troponin elevation secondary to above, hypertensive urgency chronic systolic heart failure secondary to ischemic cardiomyopathy (EF of 40- 44%, TTE 2019), equivocal volume status some congestion on CXR, patient however intravascularly dry Left hip fracture, fall from bed a few days ago Dark stools in the setting of chronic slow U GIB and iron intake Chronic as per assisted account Hemoglobin better than baseline. Recent outpatient EGD from last month just showed gastritis. coronary artery disease s/p CABG SSS sp PPM hx CVA as per records colorectal CA status post surgery status post chemoradiation DM2 on oral medications, well-controlled as of recent hemoglobin A1c of 6.09 June 2019 history of seizure disorder on Keppra history DVT as per records chronic anemia, hemoglobin better than baseline likely secondary to hemoconcentration chronic thrombocytopenia. PCU for elevated BP and troponin elevation Supplemental O2 Cultures, Zosyn, Doxycycline for now Solu-Medrol, nebs stat for H CAP with significant hypoxemia and bronchospasm IV albumin given pulmonary congestion, follow lactic acid Aspiration precautions Swallow eval follow-up Stool C. difficile, hold laxatives for now Orthopedics consult RE L hip fracture Follow troponin TTE if with progression IV beta-rena RTC for now while patient unable to take home Coreg given aspiration risk Serial H&H, DC IV PPI drip if hemoglobin stable as GI bleed felt to be chronic Transfuse PRBC if hemoglobin less than 8 and or for symptomatic anemia Continue home aspirin if hemoglobin stable hold Plavix for now in anticipation of surgery. Basal insulin adjusted for n.p.o. status, ISS BG goal [id number], update hemoglobin A1c DVT prophylaxis. SCDs RE GI bleed DNR as per , Ms. Sylvie Quan. She requests updates from providers through [id number]. Total critical care time was 45 minutes. Text document was generated using [employer] voice recognition software. It may contain grammatical or spelling errors. Kindly contact undersigned for clarification of any documentation item in question. History of Present Illness Chief Complaint: Hypoxemia as per records, respiratory distress Primary Care Provider: Danii Ribeiro History obtained from assisted staff, family, and records. Unable to reliably obtain history from patient secondary to chronic aphasia, weakness. Medical history significant for chronic systolic heart failure secondary to ischemic cardiomyopathy (EF of 40-44%, TTE 2018), coronary artery disease s/p CABG, SSS sp PPM, HTN, hx CVA, PVD, hyperlipidemia, colorectal CA status post surgery status post chemoradiation, DM2 on oral medications, history of seizure disorder on Keppra, history DVT as per records, chronic anemia baseline hemoglobin 11-12 (05/2020), chronic thrombocytopenia. Last confinement February 2020 for right femoral fracture secondary to mechanical fall status post surgery. Patient discharge to [facility] for rehab and has not been able to leave facility since. As per assisted staff, patient slid off his bed landing on his bottom a few days ago. No pain complaints as per provider. 3 days ago, patient noted by coughing and somewhat choking on food over the phone. also complaining that patient having loose stools with all the medications he was given at the facility. As per , choking episodes would happen even at home. Yesterday, patient had a witnessed syncopal event while trying to move his bowels as per assisted staff. Usual dark stools as per staff. Patient without abdominal pain complaints. Later that evening, noted patient somewhat short of breath sounding over the phone, cough symptoms noted. alerted assisted staff but did not get call back after. Today, patient had another witnessed syncopal event on the commode while trying to move his bowels as per staff. Patient however noted to be hypoxemic, O2 sats 70s, in respiratory distress, with decreased responsiveness. Hypoxemia attributed to possible lack of head and neck support as per assisted provider note. Supplemental O2 and Keppra level checked. Patient brought to the ER for evaluation for worsening respiratory distress. BiPAP initially rendered for respiratory distress later downgraded to supplemental O2. At the ER, patient received Vancomycin and Cefepime for sepsis. Dark stools noted at the ER. Stool Hemoccult weakly positive as per ER provider. IV Protonix infusion subsequently initiated for possible UGI B. Medical History as above Outpatient work-up for dark stools June 2020. EGD showed gastritis. Colonoscopy showed polyps, diverticulosis, rectal ulcer, patent end-to-side ileocolonic anastomosis. Surgical History : CABG, vascular procedures, pacemaker, partial colectomy, appendectomy, hernia repair, TA, skin graft surgery, shoulder surgery, urologic procedure, hip fracture surgery Family History : Multiple myeloma, diabetes, heart disease, breast cancer, prostate cancer Personal/Social history : Non-smoker, no EtOH intake, assisted resident Allergies Allergy/AdvReac Type Severity Reaction Status Date / Time tramadol Allergy Severe seizures Verified 07/17/20 21:24 iodine Allergy Intermediate airway Verified 07/17/20 21:24 edema oxycodone Allergy Intermediate "itchiness Verified 07/17/20 21:24 all over" codeine AdvReac Intermediate hallucinations, Verified 07/17/20 21:24 depression ANCELMO Inhibitors AdvReac Mild COUGHING Verified 07/17/20 21:24 felodipine AdvReac Mild cough Verified 07/17/20 21:24 Home Medications Home Medications Medication Instructions Recorded Confirmed Type carvedilol [Coreg] 18.75 mg PO BIDM 09/07/18 07/17/20 History clopidogrel [Plavix] 75 mg PO HS 09/07/18 07/17/20 History dicyclomine 20 mg PO Q6 PRN 09/07/18 07/17/20 History furosemide [Lasix] 40 mg PO 3XWK 09/07/18 07/17/20 History losartan [Cozaar] 100 mg PO QAM 09/07/18 07/17/20 History multivitamin 1 tab PO QDD 09/07/18 07/17/20 History nitroglycerin [Nitrostat] 0.4 mg SUBLINGUAL UD PRN 09/07/18 07/17/20 History hydralazine 12.5 mg PO TIDM 12/25/18 07/17/20 History Fiber Laxative (methylcellulo) 500 mg PO TIDM 02/01/20 07/17/20 History furosemide 20 mg PO 4XWK 02/01/20 07/17/20 History metformin 500 mg PO BIDM 02/01/20 07/17/20 History acetaminophen 1,000 mg PO Q8H #30 tab 02/10/20 07/17/20 Rx bisacodyl 10 mg WI DAILY PRN #30 ea 02/10/20 07/17/20 Rx ergocalciferol (vitamin D2) 50,000 unit PO Q7D@0900 #5 cap 02/10/20 07/17/20 Rx ferrous sulfate 325 mg PO TIDM #90 tab 02/10/20 07/17/20 Rx aspirin [Aspir-81] 81 mg PO HS 06/11/20 07/17/20 History dicyclomine 20 mg PO BID 06/11/20 07/17/20 History hydrocortisone [Anusol-HC] 1 applic WI BID 06/11/20 07/17/20 History loperamide [Imodium A-D] 2 mg PO Q4H PRN 06/11/20 07/17/20 History Saccharomyces boulardii [Florastor] 250 mg PO BID 07/17/20 07/17/20 History fluticasone propionate 2 spray INTRANASAL DAILY 07/17/20 07/17/20 History levetiracetam [Keppra] 500 mg PO BID 07/17/20 07/17/20 History omeprazole 40 mg PO DAILY 07/17/20 07/17/20 History oxycodone [Roxicodone] 5 mg PO Q6 PRN 07/17/20 07/17/20 History potassium chloride [Klor-Con M20] 20 meq PO AMHS 07/17/20 07/17/20 History rosuvastatin 5 mg PO HS 07/17/20 07/17/20 History sertraline 75 mg PO HS 07/17/20 07/17/20 History Past Med/Surg History Medical History Anemia HX AV block "s/p pacemaker" Benign prostatic hyperplasia Carotid disease, bilateral "asymptomatic" Chronic kidney disease Coronary artery disease "s/p [place]" Depression Diabetes mellitus, type II Dyslipidemia GERD (gastroesophageal reflux disease) History of skin cancer Hypertension Left bundle branch block Malignant neoplasm of rectum (04/02/15) "Rectal bleeding Status post colonoscopy and biopsy 04/02/2015 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 Status post endoscopic ultrasound stage [id number] Neoadjuvant radiation and chemotherapy Chemotherapy comprised of Xeloda Status post completion of radiation therapy 06/24/2015 received 5460 cGy Status post rectosigmoid resection 08/27/2015 ypT2 ypN0 M0 Status post ileostomy closure 04/14/2016, gait by small bowel obstruction and then hemorrhage Status post CVA and then slow wound healing" On 01/20/16 16:12 Celeste Burrell wrote "Rectal bleeding Status post colonoscopy and biopsy 04/02/2015 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 Status post endoscopic ultrasound stage [id number] Neoadjuvant radiation and chemotherapy Chemotherapy comprised of Xeloda Status post completion of radiation therapy 06/24/2015 received 5460 cGy Status post rectosigmoid resection 08/27/2015 ypT2 ypN0 M0" On 07/02/15 10:41 Celeste Burrell wrote "Rectal bleeding Status post colonoscopy and biopsy 04/02/2015 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 Status post endoscopic ultrasound stage [id number] Neoadjuvant radiation and chemotherapy Chemotherapy comprised of Xeloda Status post completion of radiation therapy 06/24/2015 received 5460 cGy" Osteoporosis Seizure UNSPECIFIED Stroke Vitamin D deficiency Surgical History H/O ileostomy History of esophagogastroduodenoscopy (EGD) S/P colon resection Status post cardiac pacemaker procedure "initial 2005, generator change 2011" Status post cholecystectomy Status post coronary artery bypass grafting "Dr. Stephens [facility] 2002 DIAZ-LAD, SVG left circumflex" Status post shoulder surgery Status post tonsillectomy Family History Other Family history non-contributory Social History Smoking Status: Unknown if ever smoked Second Hand Exposure: No; Hx Alcohol Use: No Hx Substance Use: No Preferred Language: Occitan Communication Ability: Unable Education Associate Required: No Beliefs That Will Affect Care: None Current Living Situation: Care Home Other Information That Helps Us Care for You: No Feels Safe at Home: Declines to Answer Review of Systems Review of Systems: Could not be reliably obtained Physical Exam Physical Exam: GENERAL: Obtunded, aphasic, slightly hard of hearing, respiratory distress, SKIN: Pallor , warm HEENT: Alopecia, pale palpebral conjunctivae, no ptosis, chronic subtle facial asymmetry, dry buccal mucosa, nasal cannula in place NECK : Supple, no tenderness CHEST : Decreased breath sounds, expiratory wheezes, no tenderness HEART : RRR, systolic murmur ABDOMEN: Some distention, healed incisional scars, nontender EXTREMITIES : Minimal left hip tenderness, minimal LE swelling NEUROLOGIC : Obtunded, chronic subtle facial asymmetry, MMTs is not fully assessed Results & Data Results & Data ([facility]) Vital Signs (Past 12 Hours) Vital Signs Temp Pulse Pulse Resp BP Pulse Ox 07/17/20 20:56 88 26 H 96 07/17/20 20:30 90 26 H 176/96 H 96 07/17/20 20:01 91 H 28 H 165/109 H 95 07/17/20 19:56 37.3 C 07/17/20 19:30 104 H 32 H 194/106 H 94 07/17/20 19:00 104 H 28 H 173/113 H 94 07/17/20 18:39 38.6 C H 07/17/20 18:30 101 H 30 H 162/104 H 94 07/17/20 18:22 107 H 28 H 153/118 H 94 07/17/20 17:56 111 H 32 H 187/123 H 93 07/17/20 17:55 94 07/17/20 17:53 93 07/17/20 17:51 108 H 32 H 211/127 H 94 07/17/20 17:48 111 H 28 H 94 07/17/20 17:41 112 H 32 H 211/127 H 96 Laboratory Results Laboratory Results WBC 21.21 K/uL (4.8-10.8) H 07/17/20 17:50 RBC 4.62 M/uL (4.7-6.1) L 07/17/20 17:50 Hgb 14.4 g/dL (14.0-18.0) 07/17/20 17:50 POC Hgb 14.3 g/dl (14.0-18.0) 07/17/20 17:53 Hct 42.4 % (42-52) 07/17/20 17:50 POC Hct 42 % (42-52) 07/17/20 17:53 MCV 91.8 fL (80-100) 07/17/20 17:50 MCH 31.2 pg (25-34) 07/17/20 17:50 MCHC 34.0 g/dL (32-36) 07/17/20 17:50 RDW Std Deviation 47.9 fL (36.4-46.3) H 07/17/20 17:50 RDW Coeff of Arabella 14.4 % (11.5-14.5) 07/17/20 17:50 Plt Count 168 K/uL (130-400) 07/17/20 17:50 MPV 10.0 fL (7.4-10.4) 07/17/20 17:50 Immature Gran % (Auto) 0.9 % 07/17/20 17:50 Neut % (Auto) 91.9 % 07/17/20 17:50 Lymph % (Auto) 4.4 % 07/17/20 17:50 [place] % (Auto) 2.8 % 07/17/20 17:50 Eos % (Auto) 0.0 % 07/17/20 17:50 Baso % (Auto) 0.0 % 07/17/20 17:50 Neut # (Auto) 19.47 K/uL (1.4-6.5) H 07/17/20 17:50 Lymph # (Auto) 0.93 K/uL (1.2-3.4) L 07/17/20 17:50 [place] # (Auto) 0.59 K/uL (0.11-0.59) 07/17/20 17:50 Eos # (Auto) 0.01 K/uL (0-0.5) 07/17/20 17:50 Baso # (Auto) 0.01 K/uL (0-0.2) 07/17/20 17:50 Immature Gran # (Auto) 0.20 K/uL (0.00-0.02) H 07/17/20 17:50 PT 12.8 Seconds (9.0-12.0) H 07/17/20 17:50 INR 1.2 (0.9-1.1) H 07/17/20 17:50 APTT 26.2 Seconds (21.0-31.0) 07/17/20 17:50 PTT Ratio 0.9 07/17/20 17:50 POC pH 7.42 (7.35-7.45) 07/17/20 17:53 POC pCO2 37 mmHg (35-46) 07/17/20 17:53 POC pO2 94 mmHg (80-95) 07/17/20 17:53 POC HCO3 24 ricardo/L (19-24) 07/17/20 17:53 POC Total CO2 25 mmol/L (24-31) 07/17/20 17:53 POC Base Excess -1.0 ricardo/L (-9-1.8) 07/17/20 17:53 POC ABG O2 Sat 98.0 % (90-95) H 07/17/20 17:53 POC Sodium 144 mmol/L (135-144) 07/17/20 17:53 Sodium 145 mmol/L (136-145) 07/17/20 17:50 POC Potassium 3.5 mmol/L (3.3-5.0) 07/17/20 17:53 Potassium 3.6 mmol/L (3.5-5.1) 07/17/20 17:50 Chloride 111 mmol/L (98-107) H 07/17/20 17:50 Carbon Dioxide 23 mmol/L (21-32) 07/17/20 17:50 Anion Gap 11.0 (3-11) 07/17/20 17:50 BUN 19 mg/dl (7-18) H 07/17/20 17:50 Creatinine 1.12 mg/dl (0.6-1.4) 07/17/20 17:50 Est Cr Clr Drug Dosing Not Reportable 07/17/20 17:50 Est GFR ( Amer) 71.0 07/17/20 17:50 Est GFR (Non-Af Amer) 61.3 07/17/20 17:50 BUN/Creatinine Ratio 16.9 (10-20) 07/17/20 17:50 Glucose 228 mg/dl (70-99) H 07/17/20 17:50 Lactate 2.1 mmol/L (0.4-2.0) H* 07/17/20 17:50 Calcium 8.7 mg/dl (8.5-10.1) 07/17/20 17:50 Magnesium 1.5 mg/dl (1.8-2.4) L 07/17/20 17:50 Total Bilirubin 0.6 mg/dl (0.2-1) 07/17/20 17:50 AST 34 U/L (15-37) 07/17/20 17:50 ALT 36 U/L (12-78) 07/17/20 17:50 Alkaline Phosphatase 132 U/L (45-117) H 07/17/20 17:50 Troponin I 0.230 ng/ml (0-0.045) H* 07/17/20 17:50 NT-Pro-B Natriuret Pep Cancelled 07/17/20 17:50 Total Protein 7.5 gm/dl (6.4-8.2) 07/17/20 17:50 Albumin 3.2 gm/dl (3.4-5.0) L 07/17/20 17:50 Globulin 4.3 gm/dl (2.5-4.0) H 07/17/20 17:50 Albumin/Globulin Ratio 0.7 (0.9-2) L 07/17/20 17:50 Procalcitonin 0.16 ng/ml (0-0.5) 07/17/20 17:50 Urine Color Dark Yellow 07/17/20 18:25 Urine Appearance Cloudy (Clear) A 07/17/20 18:25 Urine pH 5.0 (4.5-7.5) 07/17/20 18:25 Ur Specific [place] 1.032 (1.000-1.030) H 07/17/20 18:25 Urine Protein 3+ (Negative) H 07/17/20 18:25 Urine Glucose (UA) Negative (Negative) 07/17/20 18:25 Urine Ketones Trace (Negative) H 07/17/20 18:25 Urine Blood 3+ (Negative) H 07/17/20 18:25 Urine Nitrite Negative (Negative) 07/17/20 18:25 Urine Bilirubin Negative (Negative) 07/17/20 18:25 Urine Urobilinogen Negative (Negative) 07/17/20 18:25 Ur Leukocyte Esterase Trace (Negative) H 07/17/20 18:25 Urine WBC (Auto) 10-30 /hpf (0-5) H 07/17/20 18:25 Urine RBC (Auto) >30 /hpf (0-4) H 07/17/20 18:25 U Hyaline Cast (Auto) 1-5 /lpf (0-5) 07/17/20 18:25 U Epithel Cells (Auto) >30 /lpf (0-5) H 07/17/20 18:25 Urine Bacteria (Auto) 1+ (Negative) H 07/17/20 18:25 Ur Renal Epithelial Cell Not Reportable 07/17/20 18:25 COVID-19 Eval Order Covid19 Done at [facility] 07/17/20 20:27 Blood Type O Positive 07/17/20 19:31 Antibody Screen NEGATIVE 07/17/20 19:31 Diagnostic Findings CXR : 1. Mild interstitial thickening. This favors mild pulmonary edema. An infectious process could appear similar. 2. No change in a small left pleural effusion with left basilar opacity which f avors atelectasis. Trace right pleural effusion. CT head: No acute intracranial findings. No change in appearance of the brain. CT abdomen pelvis: 1. Extensive left acetabular fracture which involves all morillo of the left acetabulum. Fracture appears acute. No proximal left femoral fracture. 2. Small left pleural effusion with left basilar opacity could reflect atelectasis or consolidation. 3. No bowel obstruction. Stable presacral/perirectal infiltration and soft tissue. This is likely post therapeutic. 4. Moderate bladder wall thickening with apparent calcifications within the right posterior lateral wall of the bladder. These findings are nonspecific and may be correlated with urinalysis and urine cytology. EKG as per my interpretation: Rate 110, paced rhythm
[2020-07-17 21:22] LABS: NT Pro B Type Natriuretic Pept 11306 pg/ml (0-1800)
[2020-07-17 22:07] LABS: Hematocrit (blood only) 39.2 % (42-52); Hemoglobin 12.3 g/dL (14.0-18.0)
[2020-07-17] MEDS ORDERED: DEXTROSE 50% 50 ML SYRINGE IV PRN (22:38)
[2020-07-17] MEDS ORDERED: GLUCOSE 10 TABS/TUBE PO PRN (22:38)
[2020-07-17] MEDS ORDERED: NALOXONE HCL 0.4 MG/1 ML VIAL/CARP IV PRN (22:38)
[2020-07-17] MEDS ORDERED: ACETAMINOPHEN 325 MG TAB PO PRN (22:38)
[2020-07-17] MEDS ORDERED: DOXYCYCLINE HYCLATE 100 MG in DEXTROSE 5% 100 ML IV STA (22:38)
[2020-07-17] MEDS ORDERED: CARBOHYDRATES FOR HYPOGLYCEMIA PO PRN (22:38)
[2020-07-17] MEDS ORDERED: PROMETHAZINE HCL 12.5 MG in SODIUM CHLORIDE 0.9% 50 ML IV PRN (22:38)
[2020-07-17] MEDS ORDERED: MAGNESIUM SULFATE / D5W 1 GM/100 ML BAG IV ONE (22:38)
[2020-07-17] MEDS ORDERED: GLUCOSE 40% GEL 15 GM TUBE PO PRN (22:38)
[2020-07-17] MEDS ORDERED: NITROGLYCERIN SL 0.4 MG/TAB TAB SL PRN (22:38)
[2020-07-17] MEDS ORDERED: bisacodyL 10 MG SUPP PR PRN (22:38)
[2020-07-17] MEDS ORDERED: GLUCAGON FOR INJ 1 MG VIAL SQ PRN (22:38)
[2020-07-17] MEDS ORDERED: OXYCODONE HCL IR 5 MG TAB (IMMEDIATE RELEASE) PO PRN (22:38)
[2020-07-17] MEDS ORDERED: ALBUMIN 25% 50 ML IV ONE (22:38)
[2020-07-17] MEDS ORDERED: INSULIN GLARGINE SOLOSTAR 100 UNITS/ML 3 ML PEN SC STA (22:38)
[2020-07-17] MEDS: INSULIN ASPART 100 UNITS/ML 3 ML PEN SC SCH (23:32)
[2020-07-17] MEDS ORDERED: METOPROLOL TARTRATE 1 MG/ML VIAL IV ONE (23:53)
[2020-07-18] MEDS: METOPROLOL TARTRATE 1 MG/ML VIAL IV SCH ×5 (00:06→22:19)
[2020-07-18] MEDS: levETIRAcetam 500 MG in 0.9 % SODIUM CHLORIDE 100 ML IV SCH ×3 (00:06→22:18)
[2020-07-18] MEDS ORDERED: XOPENEX/ATROVENT 1.25mg/0.5MG NEB COMBO NEB SCH (01:00)
[2020-07-18] MEDS ORDERED: IPRATROPIUM BROMIDE NEB SOLN 0.02% 2.5 ML VIAL INH SCH (01:00)
[2020-07-18] MEDS ORDERED: LEVALBUTEROL 1.25MG/0.5ML NEB INH SCH (01:00)
[2020-07-18] MEDS ORDERED: HydrALAZINE HCL 20 MG/ML VIAL IV ONE (01:54)
[2020-07-18 02:02] LABS: Basophils # (auto) 0.01 K/uL (0-0.2); Basophils % (auto) 0.1 %; Eosinophils # (auto) 0.01 K/uL (0-0.5); Eosinophils % (auto) 0.1 %; Hematocrit (blood only) 38.1 % (42-52); Hemoglobin 12.6 g/dL (14.0-18.0); Immature Granulocytes % (auto) 0.7 %; Lymphocytes # (auto) 0.96 K/uL (1.2-3.4); Lymphocytes % (auto) 6.4 %; Mean Corpuscular Hemoglobin 30.4 pg (25-34); Mean Corpuscular Hgb Conc 33.1 g/dL (32-36); Monocytes # (auto) 0.19 K/uL (0.11-0.59); Monocytes % (auto) 1.3 %; Neutrophils # (auto) 13.76 K/uL (1.4-6.5); Neutrophils % (auto) 91.4 %; Platelet Count 132 K/uL (130-400); RDW Coefficient of Variation 14.4 % (11.5-14.5); RDW Standard Deviation 47.8 fL (36.4-46.3); Red Blood Count 4.14 M/uL (4.7-6.1); White Blood Count 15.03 K/uL (4.8-10.8)
[2020-07-18] MEDS: PIPERACILLIN/TAZOBACTAM 3.375 GM in DEXTROSE 5% 100 ML IV SCH ×3 (02:10→17:15)
[2020-07-18 02:19] LABS: BUN Creatinine Ratio 15.1 (10-20); Calcium 8.6 mg/dl (8.5-10.1); Creatinine Clr Calc Pharmacy 48.4 ml/min; Est GFR (Non-African American) 55.3; Magnesium 2.4 mg/dl (1.8-2.4); Potassium 3.6 mmol/L (3.5-5.1)
[2020-07-18] MEDS ORDERED: METOPROLOL TARTRATE 1 MG/ML VIAL IV SCH (03:00)
[2020-07-18] MEDS ORDERED: ALBUMIN 25% 50 ML IV ONE ×2 (03:20→05:00)
[2020-07-18] MEDS ORDERED: ALBUT/IPRATROP 3MG/0.5MG NEB 3 ML VIAL NEB PRN (03:23)
[2020-07-18] MEDS: MoRPHine SULFATE 2 MG/ML CARP IV PRN (03:40)
[2020-07-18] MEDS: INSULIN ASPART 100 UNITS/ML 3 ML PEN SC SCH ×4 (05:26→23:48)
[2020-07-18] MEDS ORDERED: carvediloL 12.5 MG TAB PO SCH (08:00)
[2020-07-18 08:08] LABS: Hematocrit (blood only) 35.4 % (42-52); Hemoglobin 11.9 g/dL (14.0-18.0)
[2020-07-18] MEDS: LOSARTAN POTASSIUM 50 MG TAB PO SCH (08:24)
[2020-07-18] MEDS: SACCHAROMYCES BOULARDII 250 MG CAP PO SCH ×2 (08:25→19:20)
[2020-07-18] MEDS: FLUTICASONE PROPIONATE NA SPR 16 GM BTL SCH (08:25)
[2020-07-18] MEDS: PANTOprazole 40 MG in SYRINGE 0 ML IV SCH (08:25)
[2020-07-18] MEDS ORDERED: PANTOprazole 40 MG in SYRINGE 0 ML IV SCH (09:00)
[2020-07-18] MEDS ORDERED: DOXYCYCLINE HYCLATE 100 MG CAP PO SCH (09:00)
[2020-07-18] MEDS ORDERED: ASPIRIN 81 MG ECTAB PO SCH (09:00)
--- NOTE | 2020-07-18 09:40 | Electrocardiogram Report ---
Test Reason : Blood Pressure : / mmHG Vent. Rate : 110 BPM Atrial Rate : 110 BPM P-R Int : 120 ms QRS Dur : 138 ms QT Int : 412 ms P-R-T Axes : 047 -55 114 degrees QTc Int : 557 ms Atrial-sensed ventricular-paced rhythm Premature ventricular complexes Abnormal ECG When compared with ECG of 01-FEB-2020 20:43, Vent. rate has increased BY 30 BPM Confirmed by Holland Pearce ([id number]) on 07/18/2020 9:39:45 AM Referred By: Gema garner [facility] Confirmed By:Holland Pearce
--- NOTE | 2020-07-18 09:41 | CT Scan Report ---
CT chest wo con CLINICAL HISTORY: pneumonia, pleural effusion COMPARISON STUDY: Chest x-ray dated 07/17/2020, CT scan dated 09/07/2018 CT DOSE: 775.89 mGy.cm TECHNIQUE: CT of the thorax was performed from the thoracic inlet to the lung bases. Images are revi ewed in the axial, sagittal, and coronal planes. IV contrast was not administered for this examinatio n. A dose lowering technique was utilized adhering to the principles of ALARA. FINDINGS: Thyroid: Imaged portions of the thyroid gland are normal in appearance. Thoracic aorta: The thoracic aorta is normal in course and caliber, noting standard 3 vessel arch suraj yessica. Heart: The heart is enlarged. There is a left subclavian central venous pacemaker. There are coronary artery calcifications. There is no significant pericardial effusion. Lungs and pleural spaces: There are small bilateral pleural effusions left larger than right. There i s bilateral dependent atelectasis/consolidation. There is respiratory motion artifact. There are subt le apical predominant groundglass pulmonary opacities. There is an irregular 13 mm right upper lobe n odule. Mediastinum: Mediastinal lymph nodes are the upper limits of normal in size Vi: There is no evidence of pathologic hilar adenopathy given the limitations of noncontrast study Axilla: There is no evidence of pathologic axillary lymphadenopathy Upper abdomen: Partially visualized upper abdominal viscera is within normal limits. Skeletal structures: There are postsurgical changes of a midline sternotomy IMPRESSION: 1. Cardiomegaly and extensive coronary artery calcifications 2. Bilateral pleural effusions left greater than right with associated lower lobe atelectasis/consoli dation 3. Subtle apical predominant groundglass pulmonary opacities, possibly representing pulmonary edema. An infectious/inflammatory processes could appear similar 4. 13 mm right upper lobe pulmonary nodule. Given the additional findings, this may be infectious/inf lammatory. A one month follow-up chest CT is recommended. ACT 112: Negative or not required by law. Electronically signed by: Jacky Bower M.D. 07/18/2020 9:39 AM
[2020-07-18] MEDS: DOXYCYCLINE HYCLATE 100 MG in DEXTROSE 5% 100 ML IV SCH ×2 (10:07→22:18)
--- NOTE | 2020-07-18 10:23 | Hospitalist Progress Note ---
Date of Service July 18, 2020 Assessment & Plan (1) Acute hypoxemic respiratory failure: 80-year-old male with history of CAD/CABG, ischemic cardiomyopathy, sick sinus syndrome status post pacemaker Diabetes type 2, hypertension, CVA, seizure, DVT, colorectal cancer, presenting with shortness of breath and hypoxia. Acute hypoxic respiratory failure, multifactorial secondary to: Healthcare associated pneumonia with possible aspiration component Severe sepsis SIRS plus hypoxemia plus encephalopathy plus lactic acidosis secondary to above Remains on 2 L of oxygen by nasal cannula CT chest: 1. Cardiomegaly and extensive coronary artery calcifications 2. Bilateral pleural effusions left greater than right with associated lower lobe atelectasis/consolidation 3. Subtle apical predominant groundglass pulmonary opacities, possibly representing pulmonary edema. An infectious/inflammatory processes could appear similar 4. 13 mm right upper lobe pulmonary nodule. Given the additional findings, this may be infectious/inflammatory. A one month follow-up chest CT is recommended. Nasal MRSA swab: Negative COVID test: Negative Blood cultures pending Continue empiric Zosyn plus doxycycline Speech therapy consulted Acute diastolic congestive heart failure exacerbation Ischemic cardiomyopathy Echocardiogram: EF 25 to 30%, diffuse hypokinesis to akinesis, moderate defect regurgitation, compared to 2018, left ventricular systolic function is mildly impaired usually on Lasix 20 mg 4 times a week, 40 mg 3 times a week Start Lasix 40 mg IV daily Monitor closely Encephalopathy, Metabolic, secondary to Underlying infection, Hypoxia, Medications CT head: No acute process Management of Infections per above Currently too drowsy for p.o. medications, monitor closely Possible UTI Urine cultures pending Continue Zosyn plus doxycycline Left acetabular fracture Status post mechanical fall, patient unfortunately fell from his bed a few days ago Orthopedic service consulted If surgical intervention is indicated, will need a preop evaluation by cardiology service Melena, possible upper GI bleed Recent outpatient EGD from last month just showed gastritis. Hemoglobin stable at around 12 Continue Protonix Monitor closely History of CAD, status post CABG Sick sinus syndrome, status post pacemaker placement Troponin 0.2 --> 0.19 Troponin elevation likely secondary to demand ischemia from hypoxia EKG atrial sensed ventricular paced rhythm hx CVA as per records Hold aspirin and Plavix in light of possible upper GI bleed colorectal CA status post surgery status post chemoradiation DM2 on oral medications, well-controlled as of recent hemoglobin A1c of 6.09 June 2019 history of seizure disorder on Keppra history DVT as per records Holding anticoagulation for DVT prophylaxis in light of possible upper GI bleed chronic anemia, hemoglobin better than baseline likely secondary to hemoconcentration chronic thrombocytopenia. DVT prophylaxis. SCDs RE GI bleed Disposition Pending Resident of [facility] Plan of care discussed with patient's Sylvie over the phone in detail and at length All questions were answered She is understanding, agreeable, comfortable with plan of care Admission and Anticipated Discharge Date Admission Date: July 17, 2020 Subjective ff up for hypoxic respiratory failure, Pneumonia, CHF Exacerbation, etc. seen resting in bed, alert, weak and alert, patient answer questions but only feels this morning/groaning sounds Not in distress Appears comfortable Heaved morphine IV this morning due to signs of pain No nausea or vomiting, no melena or hematochezia per RN Denies other symptoms Results & Data Results & Data ([facility]) Vital Signs (Past 12 Hours) Vital Signs Temp Pulse Pulse Resp BP BP Pulse Ox 07/18/20 08:00 36.8 C 86 18 154/73 H 95 07/18/20 07:05 80 07/18/20 05:21 84 165/85 H 07/18/20 04:00 36.9 C 91 H 20 151/82 H 97 07/18/20 02:40 85 164/90 H 07/18/20 01:50 85 181/111 H 07/18/20 00:31 78 20 96 07/18/20 00:30 78 177/101 H 07/17/20 23:58 86 179/111 H 07/17/20 22:30 36.8 C 101 H 24 182/111 H 93
[2020-07-18] MEDS ORDERED: FUROSEMIDE 40 MG in SYRINGE 0 ML IV ONE (10:45)
[2020-07-18] MEDS: MULTIVITAMIN TAB PO SCH (15:56)
--- NOTE | 2020-07-18 18:33 | Consultation Report ---
DATE OF CONSULTATION: 07/18/2020 HISTORY OF PRESENT ILLNESS: This is an 80-year-old gentleman seen at the request of Dr. Ferguson regarding a fall with a left acetabular fracture. The patient is well known to the orthopedic services. I had performed an ORIF of a right proximal femoral fracture previously. The patient was in his normal state of health until approximately 3 days ago when the patient was noted by his to have been coughing and somewhat choking on food while on the phone. The patient's also complained that the patient had loose stools with medications given in the facility. The choking episodes would happen every so often at home. He had a witnessed syncopal episode yesterday while trying to move his bowels per the senior living staff. Later that evening, the patient's noted that he was short of breath over the phone, cough symptoms noted. alerted the senior living staff. The patient had a witnessed syncopal episode yesterday. The patient was then admitted to the hospital. He was having worsening respiratory distress yesterday. He had a CT scan of the abdomen and pelvis and noted a comminuted, minimally displaced left acetabular fracture. Orthopedics was consulted at that time. The patient was admitted to the medical service with orthopedics to consult. No history was obtained from the patient as he is slightly stupor. He is nonresponsive to direct questioning. He does open his eyes somewhat and turn the head toward speech; however, no other registration of conversation is noted. PAST MEDICAL HISTORY: Anemia, AV block, BPH, carotid disease -- bilateral, CKD, chronic coronary artery disease with AR, depression, diabetes mellitus type 2, dyslipidemia, GERD, history of skin cancer, hypertension, left bundle branch block, malignant neoplasm of the rectum noted on 03/25/2015 -- had multiple procedures related to this with radiation therapy and rectosigmoid resection, ileostomy and closure. Chronic rectal bleeding, previous history of chemotherapy, osteoporosis, seizure, stroke, vitamin D deficiency. PAST SURGICAL HISTORY: Ileostomy, EGD, colon resection, reversal of ostomy, cardiac pacemaker, cholecystectomy, coronary artery bypass grafting, SVG to left circumflex, post shoulder surgery, T and A, ORIF of right hip fracture. ALLERGIES: IODINE WITH airway edema, oxycodone with itchiness, CODEINE WITH HALLUCINATIONS and depression, ANCELMO INHIBITORS with coughing and FELODIPINE with cough. MEDICATION LIST: Please note the extensive list in the medical record. SOCIAL HISTORY: He is retired and lives in a nursing care facility, . Denies tobacco, alcohol or drug use. PHYSICAL EXAMINATION: Obtunded, unintelligible response to direct questioning; however, the patient does turn his head toward voice. He does slightly open his eyes upon speech command. Does not move upon command, however. Focused exam of the left pelvis and acetabulum demonstrates discomfort with any range of motion of the left hip and pelvis. No point tenderness over the groin or lateral aspect of the hip. Limited range of motion attempted due to discomfort, passive only, of the left lower extremity. IMAGING: CT of the abdomen and pelvis demonstrates a minimally displaced comminuted acetabular fracture involving the acetabular roof, anterior column, posterior column. No obvious fracture of the proximal femur. IMPRESSION: 1. Left acetabular fracture, anterior to posterior column with superior roof involvement, minimal displacement. 2. Obtunded. 3. Multiple medical comorbidities, do not resuscitate patient. RECOMMENDATIONS: Nonsurgical care and observation. Comfort care at this point. Care with transfers. DVT prophylaxis per medical service. Thank you for the opportunity to consult in the care of this patient.
[2020-07-18] MEDS: ROSUVASTATIN CALCIUM 5 MG TAB PO SCH (19:20)
[2020-07-18] MEDS: SERTRALINE HCL 50 MG TABLET PO SCH (19:21)
[2020-07-18] MEDS: INSULIN GLARGINE SOLOSTAR 100 UNITS/ML 3 ML PEN SC SCH (20:16)
[2020-07-19] MEDS: PIPERACILLIN/TAZOBACTAM 3.375 GM in DEXTROSE 5% 100 ML IV SCH ×3 (02:09→17:52)
[2020-07-19] MEDS: MoRPHine SULFATE 2 MG/ML CARP IV PRN (03:34)
[2020-07-19] MEDS: METOPROLOL TARTRATE 1 MG/ML VIAL IV SCH ×4 (05:35→22:32)
[2020-07-19] MEDS: INSULIN ASPART 100 UNITS/ML 3 ML PEN SC SCH ×4 (05:36→23:33)
[2020-07-19] MEDS: HydrALAZINE HCL 20 MG/ML VIAL IV SCH ×2 (08:53→17:51)
[2020-07-19] MEDS: PANTOprazole 40 MG in SYRINGE 0 ML IV SCH (08:53)
[2020-07-19] MEDS: LOSARTAN POTASSIUM 50 MG TAB PO SCH (08:57)
[2020-07-19] MEDS: FLUTICASONE PROPIONATE NA SPR 16 GM BTL SCH (08:57)
[2020-07-19] MEDS: SACCHAROMYCES BOULARDII 250 MG CAP PO SCH ×2 (08:57→19:40)
[2020-07-19 09:02] LABS: Basophils # (auto) 0.01 K/uL (0-0.2); Basophils % (auto) 0.1 %; Eosinophils # (auto) 0.14 K/uL (0-0.5); Hematocrit (blood only) 37.4 % (42-52); Hemoglobin 12.4 g/dL (14.0-18.0); Immature Granulocytes # (auto) 0.08 K/uL (0.00-0.02); Immature Granulocytes % (auto) 0.6 %; Lymphocytes # (auto) 1.17 K/uL (1.2-3.4); Lymphocytes % (auto) 8.7 %; Mean Corpuscular Hemoglobin 30.9 pg (25-34); Mean Corpuscular Hgb Conc 33.2 g/dL (32-36); Mean Corpuscular Volume 93.3 fL (80-100); Mean Platelet Volume 9.6 fL (7.4-10.4); Monocytes % (auto) 3.7 %; Neutrophils % (auto) 85.9 %; Platelet Count 128 K/uL (130-400); RDW Coefficient of Variation 14.8 % (11.5-14.5); Red Blood Count 4.01 M/uL (4.7-6.1)
[2020-07-19] MEDS: DOXYCYCLINE HYCLATE 100 MG in DEXTROSE 5% 100 ML IV SCH ×2 (09:04→21:26)
[2020-07-19 09:58] LABS: BUN Creatinine Ratio 22.4 (10-20); Calcium 9.5 mg/dl (8.5-10.1); Creatinine Clr Calc Pharmacy 60.2 ml/min; Est GFR (African American) 83.5
[2020-07-19] MEDS: levETIRAcetam 500 MG in 0.9 % SODIUM CHLORIDE 100 ML IV SCH ×2 (11:02→22:32)
[2020-07-19] MEDS ORDERED: HydrALAZINE HCL 20 MG/ML VIAL IV PRN (15:41)
--- NOTE | 2020-07-19 15:42 | Hospitalist Progress Note ---
Date of Service July 19, 2020 Assessment & Plan (1) Acute hypoxemic respiratory failure: 80-year-old male with history of CAD/CABG, ischemic cardiomyopathy, sick sinus syndrome status post pacemaker Diabetes type 2, hypertension, CVA, seizure, DVT, colorectal cancer, presenting with shortness of breath and hypoxia. Acute hypoxic respiratory failure, multifactorial secondary to: Healthcare associated pneumonia with possible aspiration component Severe sepsis SIRS plus hypoxemia plus encephalopathy plus lactic acidosis secondary to above Remains on 2 L of oxygen by nasal cannula CT chest: 1. Cardiomegaly and extensive coronary artery calcifications 2. Bilateral pleural effusions left greater than right with associated lower lobe atelectasis/consolidation 3. Subtle apical predominant groundglass pulmonary opacities, possibly representing pulmonary edema. An infectious/inflammatory processes could appear similar 4. 13 mm right upper lobe pulmonary nodule. Given the additional findings, this may be infectious/inflammatory. A one month follow-up chest CT is recommended. Nasal MRSA swab: Negative COVID test: Negative Blood cultures Negative so far Continue empiric Zosyn plus doxycycline Speech therapy consulted Acute diastolic congestive heart failure exacerbation Ischemic cardiomyopathy Echocardiogram: EF 25 to 30%, diffuse hypokinesis to akinesis, moderate defect regurgitation, compared to 2018, left ventricular systolic function is mildly impaired usually on Lasix 20 mg 4 times a week, 40 mg 3 times a week Lasix 40 mg IV one dose for now replace potassium Encephalopathy, Metabolic, secondary to Underlying infection, Hypoxia, Medications CT head: No acute process appears more alert, but still not responding verbally Management of Infections per above avoid Narcotics, Benzos NPO for now, re-eval by speech therapist tomorrow Possible UTI Urine cultures pending Continue Zosyn plus doxycycline Left acetabular fracture Status post mechanical fall, patient unfortunately fell from his bed a few days ago Orthopedic service consulted recommend conservative management at this point Melena, possible upper GI bleed Recent outpatient EGD from last month just showed gastritis. Hemoglobin stable at around 12 Continue Protonix Monitor closely History of CAD, status post CABG Sick sinus syndrome, status post pacemaker placement Troponin 0.2 --> 0.19 Troponin elevation likely secondary to demand ischemia from hypoxia EKG atrial sensed ventricular paced rhythm History of CVA as per records Hold aspirin and Plavix as patient is NPO status rectal ASA avoided as patient as rectal ulcer Colorectal CA status post surgery status post chemoradiation DM2 on oral medications, well-controlled as of recent hemoglobin A1c of 6.09 June 2019 History of seizure disorder on Keppra history DVT as per records start Heparin SC q21h Chronic thrombocytopenia. DVT prophylaxis. Heparin SC Disposition Pending Resident of [facility] Admission and Anticipated Discharge Date Admission Date: July 17, 2020 Subjective ff up for respiratory failure, encephalopathy, etc. seen resting in bed, not in distress, awake, alert, tracks examiner with his eyes, moves his head, squeezes examiner's hand does not respond verbally does not follow any other commands appears comfortable, but weak no other issues per early childhood coordinator of Systems Review of Systems: All systems reviewed & are unremarkable except as noted in HPI & below Physical Exam Physical Exam: General- awake, not in distress, breathing with no effort or accessory muscle use Eyes- anicteric Neck- no JVD Lungs- decreased breath sounds at the bases, no wheezing Heart- normal rate, regular rhythm; no murmurs Abdomen- normal bowel sounds, nondistended, soft, nontender Extremities- mild pretibial edema, no calf tenderness Neuro- awake, nonverbal; no facial asymmetry, moves upper extremities equally Skin- warm & dry Results & Data Results & Data ([facility]) Vital Signs (Past 12 Hours) Vital Signs Temp Pulse Pulse Resp BP BP Pulse Ox 07/19/20 11:10 36.8 C 94 H 16 189/100 H 98 07/19/20 08:00 37.0 C 86 16 169/78 H 95 07/19/20 07:00 85 07/19/20 05:35 83 174/88 H 07/19/20 04:30 174/88 H Laboratory Results Laboratory Results - last 24 hr 07/18/20 07/18/20 07/19/20 18:41 23:47 05:35 WBC RBC Hgb Hct MCV MCH MCHC RDW Std Deviation RDW Coeff of Arabella Plt Count MPV Immature Gran % (Auto) Neut % (Auto) Lymph % (Auto) [place] % (Auto) Eos % (Auto) Baso % (Auto) Neut # (Auto) Lymph # (Auto) [place] # (Auto) Eos # (Auto) Baso # (Auto) Immature Gran # (Auto) Sodium Potassium Chloride Carbon Dioxide Anion Gap BUN Creatinine Est Cr Clr Drug Dosing Est GFR ( Amer) Est GFR (Non-Af Amer) BUN/Creatinine Ratio Glucose POC Glucose 151 H 154 H 129 H Calcium 09/07/19/20 07/19/20 08:47 08:47 12:12 WBC 13.40 H RBC 4.01 L Hgb 12.4 L Hct 37.4 L MCV 93.3 MCH 30.9 MCHC 33.2 RDW Std Deviation 50.0 H RDW Coeff of Arabella 14.8 H Plt Count 128 L MPV 9.6 Immature Gran % (Auto) 0.6 Neut % (Auto) 85.9 Lymph % (Auto) 8.7 [place] % (Auto) 3.7 Eos % (Auto) 1.0 Baso % (Auto) 0.1 Neut # (Auto) 11.50 H Lymph # (Auto) 1.17 L [place] # (Auto) 0.50 Eos # (Auto) 0.14 Baso # (Auto) 0.01 Immature Gran # (Auto) 0.08 H Sodium 144 Potassium 3.0 L D Chloride 110 H Carbon Dioxide 27 Anion Gap 8.0 BUN 22 H Creatinine 0.98 Est Cr Clr Drug Dosing 60.2 Est GFR ( Amer) 83.5 Est GFR (Non-Af Amer) 72.0 BUN/Creatinine Ratio 22.4 H Glucose 147 H POC Glucose 170 H Calcium 9.5
[2020-07-19] MEDS ORDERED: FUROSEMIDE 40 MG in SYRINGE 0 ML IV ONE (15:45)
[2020-07-19] MEDS: MULTIVITAMIN TAB PO SCH (17:51)
[2020-07-19] MEDS: POTASSIUM CHLORIDE / WTR 10 MEQ/100 ML PLCT IV SCH ×4 (17:52→21:25)
[2020-07-19] MEDS: SERTRALINE HCL 50 MG TABLET PO SCH (19:40)
[2020-07-19] MEDS: ROSUVASTATIN CALCIUM 5 MG TAB PO SCH (19:40)
[2020-07-19] MEDS: HEPARIN SOD 5,000 UNIT/0.5 ML VIAL SQ SCH (20:45)
[2020-07-19] MEDS: INSULIN GLARGINE SOLOSTAR 100 UNITS/ML 3 ML PEN SC SCH (20:46)
[2020-07-20] MEDS: HydrALAZINE HCL 20 MG/ML VIAL IV SCH ×3 (01:24→18:05)
[2020-07-20] MEDS: PIPERACILLIN/TAZOBACTAM 3.375 GM in DEXTROSE 5% 100 ML IV SCH ×3 (01:24→18:06)
[2020-07-20] MEDS: METOPROLOL TARTRATE 1 MG/ML VIAL IV SCH ×4 (05:36→22:54)
[2020-07-20] MEDS: INSULIN ASPART 100 UNITS/ML 3 ML PEN SC SCH ×4 (05:36→23:12)
[2020-07-20 05:46] LABS: Basophils # (auto) 0.01 K/uL (0-0.2); Basophils % (auto) 0.1 %; Eosinophils # (auto) 0.17 K/uL (0-0.5); Eosinophils % (auto) 1.5 %; Hematocrit (blood only) 38.2 % (42-52); Hemoglobin 12.2 g/dL (14.0-18.0); Immature Granulocytes # (auto) 0.11 K/uL (0.00-0.02); Lymphocytes # (auto) 0.83 K/uL (1.2-3.4); Lymphocytes % (auto) 7.5 %; Mean Corpuscular Hemoglobin 30.4 pg (25-34); Mean Corpuscular Hgb Conc 31.9 g/dL (32-36); Mean Corpuscular Volume 95.3 fL (80-100); Mean Platelet Volume 10.2 fL (7.4-10.4); Monocytes # (auto) 0.47 K/uL (0.11-0.59); Monocytes % (auto) 4.3 %; Neutrophils # (auto) 9.41 K/uL (1.4-6.5); Neutrophils % (auto) 85.6 %; Platelet Count 140 K/uL (130-400); RDW Coefficient of Variation 14.9 % (11.5-14.5); RDW Standard Deviation 51.5 fL (36.4-46.3); Red Blood Count 4.01 M/uL (4.7-6.1)
[2020-07-20 06:04] LABS: BUN Creatinine Ratio 26.1 (10-20); Calcium 9.2 mg/dl (8.5-10.1); Creatinine Clr Calc Pharmacy 63.4 ml/min; Est GFR (African American) 88.9; Est GFR (Non-African American) 76.7; Potassium 3.3 mmol/L (3.5-5.1)
[2020-07-20] MEDS: FLUTICASONE PROPIONATE NA SPR 16 GM BTL SCH (08:13)
[2020-07-20] MEDS: HEPARIN SOD 5,000 UNIT/0.5 ML VIAL SQ SCH ×2 (08:13→20:19)
[2020-07-20] MEDS: SACCHAROMYCES BOULARDII 250 MG CAP PO SCH ×2 (08:13→20:18)
[2020-07-20] MEDS: LOSARTAN POTASSIUM 50 MG TAB PO SCH (08:13)
[2020-07-20] MEDS: PANTOprazole 40 MG in SYRINGE 0 ML IV SCH (08:14)
[2020-07-20] MEDS: DOXYCYCLINE HYCLATE 100 MG in DEXTROSE 5% 100 ML IV SCH ×2 (09:40→22:48)
[2020-07-20] MEDS: levETIRAcetam 500 MG in 0.9 % SODIUM CHLORIDE 100 ML IV SCH ×2 (11:21→22:48)
--- NOTE | 2020-07-20 13:24 | XRay Report ---
XR chest 1V portable HISTORY: 80 years-old Male ff up CHF, pneumonia acute shortness of breath with reported congestive h eart failure and possible pneumonia COMPARISON: Chest CT 07/18/2020, chest radiograph 07/17/2020 TECHNIQUE: Portable AP view of the chest FINDINGS: Cardiac silhouette is enlarged. Prior median sternotomy and CABG. Left subclavian pacer. Calcified pl aque of the thoracic aortic arch. Left greater than right pleural effusions are redemonstrated. No pn eumothorax. Pulmonary vascular congestion with slightly decreased interstitial coarsening. Persistent left lung base consolidation. Cholecystectomy. Degenerative changes of the shoulders and spine. IMPRESSION: 1. Cardiomegaly with mildly improved pulmonary edema. 2. Left greater than right pleural effusions are redemonstrated. 3. Persistent left lung base consolidation suggestive of atelectasis versus pneumonia. ACT 112: Negative or not required by law. The above report was generated using voice recognition software. It may contain grammatical, syntax o r spelling errors. Electronically signed by: Bridger Carrillo M.D. 07/20/2020 1:22 PM
--- NOTE | 2020-07-20 14:10 | Consultation Report ---
DATE OF CONSULTATION: 07/20/2020 CHIEF COMPLAINT: Encephalopathy. HISTORY OF PRESENT ILLNESS: This is an 80-year-old male admitted to the hospital on 07/17/2020 for acute hypoxic respiratory failure and severe sepsis. [facility] Per chart review, the patient reportedly slid off the bed, landing on his bottom a few days prior to admission. He had no reported pain or complaint. However, 3 days prior to admission, the patient was noted by his coughing and somewhat choking on food over the phone. He also was witnessed to have loose stools per penitentiary report. The day prior to admission he was witnessed to have a syncopal event while trying to move his bowels. Stool was dark, although the patient did not complain of abdominal pain. Later on that same evening he was short of breath and had a cough. The following day or the day of admission, the patient was witnessed to have a syncopal event on the commode; however, he was hypoxic with O2 sats in the 70s and in respiratory distress with decreased responsiveness. Supplemental oxygen and Keppra level was checked. He was brought to the Emergency Department for evaluation of worsening respiratory distress. He was placed on BiPAP upon arrival, although downgraded supplemental oxygen. In the Emergency Department he did receive vancomycin and cefepime for sepsis. He had dark stool noted in the Emergency Department. Stool was Hemoccult positive. IV Protonix was initiated. Since admission, he was continued on empiric Zosyn plus doxycycline for healthcare-associated pneumonia with possible aspiration component. He also received Lasix for acute diastolic congestive heart failure exacerbation. He was continued on antibiotics also for a possible urinary tract infection, although the cultures were pending. He was seen by orthopedics as well for a left acetabular fracture status post mechanical fall where he fell from his bed a few days ago prior. Orthopedic service was consulted and recommended conservative management. His hemoglobin overall has remained stable with the melena and he is continued on Protonix. The patient does have a prior history of cerebrovascular accident and aspirin and Plavix were held during this admission as the patient has remained n.p.o.; although rectal aspirin was initiated. He does have a remote history of seizures and is on Keppra of note. Neurology was consulted for further evaluation. ALLERGIES: TRAMADOL, IODINE, OXYCODONE, CODEINE, ANCELMO INHIBITORS, FELODIPINE. HOME MEDICATIONS: Carvedilol 18.75 mg twice daily, Plavix 75 mg daily, Lasix 40 mg 3 times weekly, losartan 100 mg daily, multivitamin, nitroglycerin as needed, hydralazine 12.5 mg 3 times daily, metformin 500 mg twice daily, Tylenol as needed, vitamin D, aspirin 81 mg daily, Imodium as needed, potassium, omeprazole, Crestor 5 mg daily, sertraline 75 mg daily. PAST MEDICAL HISTORY: Chronic systolic heart failure secondary to ischemic cardiomyopathy, coronary artery disease status post CABG, sick sinus syndrome status post pacemaker, hypertension, history of prior cerebrovascular accident, peripheral vascular disease, hyperlipidemia, colorectal cancer status post surgery and chemoradiation, type 2 diabetes on oral medications, history of seizure on Keppra, history of DVT, chronic anemia. PAST SURGICAL HISTORY: Colonoscopy, endoscopic ultrasound, radiation therapy, rectosigmoid resection in 2015, ileostomy, history of EGD, colon resection, cholecystectomy, coronary artery disease bypass grafting, post-shoulder surgery, tonsillectomy. FAMILY HISTORY: No known or reported family history, although this was reviewed. SOCIAL HISTORY: Denies alcohol. He is a nonsmoker. [facility]. He is . REVIEW OF SYSTEMS: Review of systems was unable to be reliably obtained due to the patient's static encephalopathy. PHYSICAL EXAMINATION: VITAL SIGNS: Blood pressure 180/74 mmHg, pulse is 87, respiratory rate is 20, temperature is 36.4, O2 sats 100% on 4 liters nasal cannula. CONSTITUTIONAL: The patient appears chronically ill, no distress. HEAD AND FACE: Head is normocephalic and atraumatic. His eyes show normal lids and normal conjunctivae. NECK: Supple. RESPIRATORY: Effort is normal. CARDIOVASCULAR: Normal pulses. ABDOMEN: Nondistended. EXTREMITIES: No skin rash or lesions noted. Flat affect, appears chronically ill. NEUROLOGIC: The patient is awake, speech is incomprehensible. Memory is unable to be assessed. His attention is decreased. His knowledge is unable to be assessed. The patient speech is minimal and incomprehensible. He is following simple commands including close your eyes and stick out your tongue and smile. He blinks to threat on confrontation. His extraocular muscles are intact with no evidence of hippus. Facial sensation is intact. Subtle right facial droop at rest. Hearing is intact. Palate is symmetric. Shoulder shrug is difficult to assess. Tongue is midline. Gait deferred. COORDINATION: No tremor or myoclonic jerks. Unable to perform finger to nose or heel to murillo testing. Sensory is intact to noxious stimuli. Muscle tone is normal. Moving all 4 extremities against gravity although much less on the left (upper>lower). Mica sign is negative bilaterally, no ankle clonus bilateral. DIAGNOSTIC TESTING AND LABORATORY VALUES: WBC 11.00, hemoglobin 12.2, platelet count is 140. INR is 1.2. Sodium is 145, potassium 3.3, chloride 108, BUN is 24, creatinine is 0.93, glucose is 148, calcium 9.2. Lactate is 2.3, which is elevated. Troponin is 0.197, mildly elevated. Ammonia is normal at 24.7. Urinalysis is cloudy, 3+ protein, 3+ blood, 1+ bacteria. Keppra level is pending. COVID-19 PCR is negative. Chest x-ray showed cardiomegaly with mildly improved pulmonary edema. Bilateral pleural effusions, left greater than right. Persistent left lung base consolidation suggestive of atelectasis versus pneumonia. Chest CT shows cardiomegaly and extensive coronary artery calcifications. Bilateral pleural effusions, left greater than right. 13 mm right upper lobe pulmonary nodule. CT abdomen and pelvis extensive left acetabular fracture which involves all morillo of the left acetabulum. Fracture appears acute. No proximal left femoral fracture. Small left pleural effusion with left basilar opacity could reflect atelectasis. No bowel obstruction, moderate bladder wall thickening with apparent calcifications. Head CT noncontrast showed no acute intracranial findings. 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 White matter hypodensity suggestive of small vessel disease. Blood cultures show no growth to date. Urine culture shows more than 3 types of organisms present, all low counts, mixed probable skin bill ASSESSMENT: An 80-year-old male with multiple medical comorbidities including prior stroke on dual antiplatelet therapy, admitted with a presumed metabolic infectious encephalopathy. On examine there are some possible features to suggest he may have had an embolic right MCA ischemic stroke. CT head noncontrast shows no evidence of a large acute to subacute ischemic stroke or hemorrhage. If this is indeed a sepsis associated encephalopathy the patient's clinical status may lag behind the objective laboratory or imaging findings. May take several days to weeks for return to baseline. However, given the patient has a pacemaker, cannot exclude an embolic shower or stroke on the right. Recent transthoracic echocardiogram did show a low ejection fraction with 25-30% with no cardiac source of embolism. PLAN: Would recommend a routine EEG and CTA head and neck imaging for further evaluation. Otherwise, would continue current dose of Keppra 500 mg twice daily. Continue rectal ASA 81 mg daily. Will defer to primary for management of presumed aspiration pneumonia. Continue telemetry. Will continue to follow. MTDD
--- NOTE | 2020-07-20 17:08 | CT Scan Report ---
CT SCAN OF THE BRAIN WITHOUT IV CONTRAST CLINICAL HISTORY: Left-sided weakness. COMPARISON STUDY: CT of the brain dated 07/17/2020. TECHNIQUE: Unenhanced axial CT scan of the brain is performed from the vertex to the skull base. A do se lowering technique was utilized adhering to the principles of ALARA. CT DOSE: 729.78 mGycm FINDINGS: Brain parenchyma: There are age-related involutional changes noting moderate confluent subcortical a nd periventricular microangiopathic change. There is no hemorrhage, mass effect, or evidence of acute territorial ischemia by CT criteria. There are chronic lacunar infarcts in the left basal ganglia an d the left periventricular white matter with ex vacuo dilatation of the left lateral ventricle. There is Wallerian degeneration of the left joel. Ann-white matter differentiation is preserved. No extra -axial fluid collection is seen. Ventricles, sulci, cisterns: Prominent secondary to involutional change. Intracranial vasculature: There is atherosclerotic calcification of the cavernous carotid and vertebr al arteries. Calvarium: Unremarkable. Sinuses and mastoids: The visualized paranasal sinuses are clear. The mastoid air cells are well pneu matized. Orbits: The bony orbits are grossly intact. There are bilateral ocular lens implants. IMPRESSION: There is no hemorrhage, mass effect, or evidence of acute territorial ischemia by CT katharine valdivia. ACT 112: Negative or not required by law. Electronically signed by: Fredy Gould M.D. 07/20/2020 5:07 PM
[2020-07-20] MEDS: MULTIVITAMIN TAB PO SCH (18:04)
[2020-07-20] MEDS: ROSUVASTATIN CALCIUM 5 MG TAB PO SCH (20:17)
[2020-07-20] MEDS: SERTRALINE HCL 50 MG TABLET PO SCH (20:18)
[2020-07-20] MEDS: ASPIRIN 300 MG SUPP PR SCH (20:18)
[2020-07-20] MEDS: INSULIN GLARGINE SOLOSTAR 100 UNITS/ML 3 ML PEN SC SCH (20:19)
[2020-07-21] MEDS: ACETAMINOPHEN 1,000 MG/100 ML VIAL IV PRN ×2 (01:40→15:06)
[2020-07-21] MEDS: HydrALAZINE HCL 20 MG/ML VIAL IV SCH ×4 (01:41→19:32)
[2020-07-21] MEDS: PIPERACILLIN/TAZOBACTAM 3.375 GM in DEXTROSE 5% 100 ML IV SCH ×3 (01:41→17:30)
[2020-07-21] MEDS: METOPROLOL TARTRATE 1 MG/ML VIAL IV SCH ×4 (05:21→22:27)
[2020-07-21] MEDS: INSULIN ASPART 100 UNITS/ML 3 ML PEN SC SCH ×3 (05:26→17:31)
[2020-07-21 06:08] LABS: Basophils # (auto) 0.01 K/uL (0-0.2); Basophils % (auto) 0.1 %; Eosinophils # (auto) 0.22 K/uL (0-0.5); Eosinophils % (auto) 2.6 %; Hematocrit (blood only) 34.7 % (42-52); Hemoglobin 11.1 g/dL (14.0-18.0); Immature Granulocytes # (auto) 0.07 K/uL (0.00-0.02); Immature Granulocytes % (auto) 0.8 %; Lymphocytes # (auto) 1.29 K/uL (1.2-3.4); Lymphocytes % (auto) 15.5 %; Mean Corpuscular Hemoglobin 30.6 pg (25-34); Mean Corpuscular Volume 95.6 fL (80-100); Mean Platelet Volume 10.8 fL (7.4-10.4); Monocytes # (auto) 0.47 K/uL (0.11-0.59); Monocytes % (auto) 5.7 %; Neutrophils # (auto) 6.25 K/uL (1.4-6.5); Neutrophils % (auto) 75.3 %; Platelet Count 116 K/uL (130-400); RDW Coefficient of Variation 14.7 % (11.5-14.5); Red Blood Count 3.63 M/uL (4.7-6.1); White Blood Count 8.31 K/uL (4.8-10.8)
[2020-07-21 06:37] LABS: BUN Creatinine Ratio 30.6 (10-20); Calcium 9.4 mg/dl (8.5-10.1); Creatinine Clr Calc Pharmacy 59.7 ml/min; Est GFR (African American) 84.5; Est GFR (Non-African American) 72.9
[2020-07-21] MEDS: FLUTICASONE PROPIONATE NA SPR 16 GM BTL SCH (08:16)
[2020-07-21] MEDS: PANTOprazole 40 MG in SYRINGE 0 ML IV SCH (08:16)
[2020-07-21] MEDS: LOSARTAN POTASSIUM 50 MG TAB PO SCH (08:16)
[2020-07-21] MEDS: HEPARIN SOD 5,000 UNIT/0.5 ML VIAL SQ SCH ×2 (08:17→21:26)
[2020-07-21] MEDS: SACCHAROMYCES BOULARDII 250 MG CAP PO SCH ×2 (08:17→21:25)
[2020-07-21] MEDS: DOXYCYCLINE HYCLATE 100 MG in DEXTROSE 5% 100 ML IV SCH ×2 (09:16→22:26)
[2020-07-21] MEDS ORDERED: FUROSEMIDE 40 MG in SYRINGE 0 ML IV ONE (09:30)
[2020-07-21] MEDS: levETIRAcetam 500 MG in 0.9 % SODIUM CHLORIDE 100 ML IV SCH ×2 (11:35→22:27)
--- NOTE | 2020-07-21 16:30 | Progress Notes ---
DATE: 07/21/2020 SUBJECTIVE: The patient was seen and examined. No acute events noted overnight. The patient remains hypertensive with systolics in the 190s and diastolics in the 80s. Repeat CT head noncontrast was performed. He is awake this afternoon around 4 PM. No family at bedside. Speech remains difficult to understand and very soft. OBJECTIVE: VITAL SIGNS: Blood pressure 195/81, pulse is 57, respiratory rate is 20, temperature is 36.8, oxygen saturation 100% on 3 liters nasal cannula. CONSTITUTIONAL: The patient appears chronically ill, no distress. HEENT: His head is normocephalic and atraumatic. His normal lids and normal conjunctivae. NECK: Supple. LUNGS: Non labored HEART: pulses are normal. ABDOMEN: Nondistended. NEUROLOGIC: He is awake and in no distress. Speech is incomprehensible for the most part. . His attention is decreased. Speech is minimal, and incomprehensible. He is following simple commands. He blinks to threat on confrontation. His extraocular muscles are intact. Facial sensation intact. Face is symmetric with showing his teeth. Hearing is intact. Palate is symmetric. Tongue is midline. Gait patient is unable to ambulate. He has no tremor or myoclonic jerks. He is unable to perform [id number] testing. Moving all 4 extremities. Mica sign is negative. No ankle clonus. DIAGNOSTIC TESTING AND LABORATORY VALUES: WBC 8.31, hemoglobin 11.1, platelet count 116. Sodium 146, potassium 3.0, chloride 108, carbon dioxide 33, BUN is 30, creatinine 0.97, glucose is 134. Blood cultures no growth to date. Repeat CT head noncontrast performed on 07/20/2020: There is no hemorrhage, mass effect, or evidence of acute territorial ischemia by CT criteria. Age-related involutional changes, noting moderate confluent subcortical and periventricular microangiopathic changes. There is no hemorrhage. ASSESSMENT AND PLAN: An 80-year-old male with multiple medical comorbidities including prior stroke on dual antiplatelet therapy, admitted with presumed metabolic infectious encephalopathy. Mental status appears to be improving slowly. Speech is improved to some degree but largely remains very soft and incomprehensible. The patient is unable to have an MRI brain without contrast due to pacemaker. Cannot completely exclude an embolic stroke although I suspect this is largely a sepsis associated encephalopathy which may take some time to return to baseline. Repeat CT head noncontrast shows no evidence of acute ischemic stroke. Would continue current antiplatelet therapy for secondary stroke prevention. Agree with continuing current dose of Keppra 500 mg twice daily. May need to discuss with [facility] goals of care including NG tube or feeding tube. Otherwise I do not have any additional recommendations at this time. Please contact me if there is any other questions or concerns. MTDD
[2020-07-21] MEDS: MULTIVITAMIN TAB PO SCH (17:04)
[2020-07-21] MEDS ORDERED: POTASSIUM CHLORIDE PWD 20 MEQ PACK PO ONE (17:15)
[2020-07-21] MEDS: POTASSIUM CHLORIDE / WTR 10 MEQ/100 ML PLCT IV SCH ×4 (17:30→21:24)
--- NOTE | 2020-07-21 18:45 | Hospitalist Progress Note ---
Date of Service July 21, 2020 Assessment & Plan (1) Acute hypoxemic respiratory failure: 80-year-old male with history of CAD/CABG, ischemic cardiomyopathy, sick sinus syndrome status post pacemaker Diabetes type 2, hypertension, CVA, seizure, DVT, colorectal cancer, presenting with shortness of breath and hypoxia. Acute hypoxic respiratory failure, multifactorial secondary to: Healthcare associated pneumonia with possible aspiration component Severe sepsis SIRS plus hypoxemia plus encephalopathy plus lactic acidosis secondary to above Remains on 4 L of oxygen by nasal cannula CT chest: 1. Cardiomegaly and extensive coronary artery calcifications 2. Bilateral pleural effusions left greater than right with associated lower lobe atelectasis/consolidation 3. Subtle apical predominant groundglass pulmonary opacities, possibly representing pulmonary edema. An infectious/inflammatory processes could appear similar 4. 13 mm right upper lobe pulmonary nodule. Given the additional findings, this may be infectious/inflammatory. A one month follow-up chest CT is recommended. Nasal MRSA swab: Negative COVID test: Negative Blood cultures Negative so far Continue empiric Zosyn plus doxycycline Speech therapy consulted-diet resumed today however during the afternoon, patient was noted to be coughing with initiation of diet N.p.o. reordered, reevaluate tomorrow morning Acute diastolic congestive heart failure exacerbation Ischemic cardiomyopathy Echocardiogram: EF 25 to 30%, diffuse hypokinesis to akinesis, moderate defect regurgitation, compared to 2018, left ventricular systolic function is mildly impaired usually on Lasix 20 mg 4 times a week, 40 mg 3 times a week Repeat chest x-ray: 1. Cardiomegaly with mildly improved pulmonary edema. 2. Left greater than right pleural effusions are redemonstrated. 3. Persistent left lung base consolidation suggestive of atelectasis versus pneumonia. Lasix 40 mg IV one dose in a.m. and 20 mg this evening replace potassium Consult cardiology service Encephalopathy, Metabolic, secondary to Underlying infection, Hypoxia, Medications CT head: No acute process appears more alert, speaking in short sentences today Management of Infections per above avoid Narcotics, Benzos NPO again for now, re-eval by speech therapist tomorrow Possible UTI Urine cultures negative so far Continue Zosyn plus doxycycline Left acetabular fracture Status post mechanical fall, patient unfortunately fell from his bed a few days ago Orthopedic service consulted recommend conservative management at this point Melena, possible upper GI bleed Recent outpatient EGD from last month just showed gastritis. Hemoglobin stable at around 12 Continue Protonix Monitor closely History of CAD, status post CABG Sick sinus syndrome, status post pacemaker placement Troponin 0.2 --> 0.19 Troponin elevation likely secondary to demand ischemia from hypoxia EKG atrial sensed ventricular paced rhythm Hypertension On carvedilol, losartan, hydralazine P.o. status precludes above oral medications Placed on metoprolol IV, hydralazine IV Blood pressure uncontrolled Add Nitropaste Monitor closely History of CVA as per records Suspected CVA yesterday due to left-sided weakness per neurology evaluation Repeat CT head no signs of acute CVA rectal ASA ordered Colorectal CA status post surgery status post chemoradiation DM2 on oral medications, well-controlled as of recent hemoglobin A1c of 6.09 June 2019 History of seizure disorder on Keppra history DVT as per records Heparin SC q21h Chronic thrombocytopenia. DVT prophylaxis. Heparin SC Disposition Pending PT OT evaluation Resident of [facility] Admission and Anticipated Discharge Date Admission Date: July 17, 2020 Subjective Follow-up for respiratory failure, seizure exacerbation, pneumonia Seen sitting up in bed, comfortable, on 4 liters of oxygen via nasal cannula More awake and alert, answers questions in short sentences, follows commands Denies shortness of breath, chest pain, nausea vomiting Denies any other pain No other symptoms Review of Systems Review of Systems: All systems reviewed & are unremarkable except as noted in Subjective Physical Exam Physical Exam: General- oriented x 1, not in distress, speaks in sentences with no effort or accessory muscle use Eyes- anicteric Neck- no JVD Lungs-positive bilateral bases, no wheezing Heart- normal rate, regular rhythm; no murmurs Abdomen- normal bowel sounds, nondistended, soft, nontender Extremities-trace pretibial edema, no calf tenderness Neuro- alert, oriented x 1; cranial nerves II through XII grossly intact, motor strength 4/5 upper extremities, lower extremities 4 out of 5 No other gross focal neurologic deficits Skin- warm & dry Results & Data Results & Data ([facility]) Vital Signs (Past 12 Hours) Vital Signs Temp Pulse Pulse Resp BP BP Pulse Ox 07/21/20 17:04 80 07/21/20 15:52 64 07/21/20 15:51 36.9 C 60 18 165/82 H 95 07/21/20 11:58 36.8 C 57 L 20 195/81 H 100 07/21/20 11:25 75 195/83 H 07/21/20 07:54 36.8 C 72 20 173/80 H 100 Laboratory Results Laboratory Results - last 24 hr 07/18/20 07/20/20 07/20/20 01:47 20:15 22:53 WBC RBC Hgb Hct MCV MCH MCHC RDW Std Deviation RDW Coeff of Arabella Plt Count MPV Immature Gran % (Auto) Neut % (Auto) Lymph % (Auto) [place] % (Auto) Eos % (Auto) Baso % (Auto) Neut # (Auto) Lymph # (Auto) [place] # (Auto) Eos # (Auto) Baso # (Auto) Immature Gran # (Auto) Sodium Potassium Chloride Carbon Dioxide Anion Gap BUN Creatinine Est Cr Clr Drug Dosing Est GFR ( Amer) Est GFR (Non-Af Amer) BUN/Creatinine Ratio Glucose POC Glucose 150 H 154 H Calcium Levetiracetam 23.9 07/21/20 07/21/20 07/21/20 05:19 05:24 05:24 WBC 8.31 RBC 3.63 L Hgb 11.1 L Hct 34.7 L MCV 95.6 MCH 30.6 MCHC 32.0 RDW Std Deviation 51.0 H RDW Coeff of Arabella 14.7 H Plt Count 116 L MPV 10.8 H Immature Gran % (Auto) 0.8 Neut % (Auto) 75.3 Lymph % (Auto) 15.5 [place] % (Auto) 5.7 Eos % (Auto) 2.6 Baso % (Auto) 0.1 Neut # (Auto) 6.25 Lymph # (Auto) 1.29 [place] # (Auto) 0.47 Eos # (Auto) 0.22 Baso # (Auto) 0.01 Immature Gran # (Auto) 0.07 H Sodium 146 H Potassium 3.0 L Chloride 108 H Carbon Dioxide 33 H Anion Gap 5.0 BUN 30 H Creatinine 0.97 Est Cr Clr Drug Dosing 59.7 Est GFR ( Amer) 84.5 Est GFR (Non-Af Amer) 72.9 BUN/Creatinine Ratio 30.6 H Glucose 134 H POC Glucose 151 H Calcium 9.4 Levetiracetam 07/21/20 11:23 WBC RBC Hgb Hct MCV MCH MCHC RDW Std Deviation RDW Coeff of Arabella Plt Count MPV Immature Gran % (Auto) Neut % (Auto) Lymph % (Auto) [place] % (Auto) Eos % (Auto) Baso % (Auto) Neut # (Auto) Lymph # (Auto) [place] # (Auto) Eos # (Auto) Baso # (Auto) Immature Gran # (Auto) Sodium Potassium Chloride Carbon Dioxide Anion Gap BUN Creatinine Est Cr Clr Drug Dosing Est GFR ( Amer) Est GFR (Non-Af Amer) BUN/Creatinine Ratio Glucose POC Glucose 134 H Calcium Levetiracetam
[2020-07-21] MEDS: NITROGLYCERIN 2% OINTMENT 30GM TUBE EXT SCH (19:29)
[2020-07-21] MEDS: ASPIRIN 300 MG SUPP PR SCH (21:24)
[2020-07-21] MEDS: SERTRALINE HCL 50 MG TABLET PO SCH (21:25)
[2020-07-21] MEDS: ROSUVASTATIN CALCIUM 5 MG TAB PO SCH (21:25)
[2020-07-21] MEDS: INSULIN GLARGINE SOLOSTAR 100 UNITS/ML 3 ML PEN SC SCH (21:27)
[2020-07-22] MEDS: INSULIN ASPART 100 UNITS/ML 3 ML PEN SC SCH ×5 (00:34→20:14)
[2020-07-22] MEDS: PIPERACILLIN/TAZOBACTAM 3.375 GM in DEXTROSE 5% 100 ML IV SCH ×2 (01:59→12:03)
[2020-07-22] MEDS: HydrALAZINE HCL 20 MG/ML VIAL IV SCH ×4 (01:59→20:03)
[2020-07-22] MEDS: NITROGLYCERIN 2% OINTMENT 30GM TUBE EXT SCH ×5 (01:59→23:49)
[2020-07-22] MEDS: METOPROLOL TARTRATE 1 MG/ML VIAL IV SCH ×4 (04:49→23:29)
[2020-07-22 06:41] LABS: Basophils # (auto) 0.01 K/uL (0-0.2); Basophils % (auto) 0.1 %; Eosinophils # (auto) 0.28 K/uL (0-0.5); Eosinophils % (auto) 3.2 %; Hematocrit (blood only) 36.2 % (42-52); Hemoglobin 11.7 g/dL (14.0-18.0); Immature Granulocytes # (auto) 0.13 K/uL (0.00-0.02); Immature Granulocytes % (auto) 1.5 %; Lymphocytes % (auto) 12.5 %; Mean Corpuscular Hemoglobin 30.5 pg (25-34); Mean Corpuscular Hgb Conc 32.3 g/dL (32-36); Mean Corpuscular Volume 94.5 fL (80-100); Mean Platelet Volume 10.8 fL (7.4-10.4); Monocytes # (auto) 0.52 K/uL (0.11-0.59); Monocytes % (auto) 5.9 %; Neutrophils # (auto) 6.78 K/uL (1.4-6.5); Neutrophils % (auto) 76.8 %; Platelet Count 151 K/uL (130-400); RDW Coefficient of Variation 14.7 % (11.5-14.5); Red Blood Count 3.83 M/uL (4.7-6.1); White Blood Count 8.82 K/uL (4.8-10.8)
[2020-07-22 07:07] LABS: BUN Creatinine Ratio 32.6 (10-20); Calcium 9.4 mg/dl (8.5-10.1); Creatinine Clr Calc Pharmacy 70.8 ml/min; Est GFR (African American) 96.1; Est GFR (Non-African American) 82.9
[2020-07-22 07:57] LABS: Magnesium 1.9 mg/dl (1.8-2.4); Phosphorus 2.5 mg/dl (2.5-4.9)
[2020-07-22] MEDS: LOSARTAN POTASSIUM 50 MG TAB PO SCH (07:59)
[2020-07-22] MEDS: SACCHAROMYCES BOULARDII 250 MG CAP PO SCH ×2 (07:59→19:59)
[2020-07-22] MEDS: POTASSIUM CHLORIDE / WTR 10 MEQ/100 ML PLCT IV SCH ×3 (07:59→11:51)
[2020-07-22] MEDS: HEPARIN SOD 5,000 UNIT/0.5 ML VIAL SQ SCH ×2 (07:59→20:14)
[2020-07-22] MEDS: FLUTICASONE PROPIONATE NA SPR 16 GM BTL SCH (07:59)
[2020-07-22] MEDS: PANTOprazole 40 MG in SYRINGE 0 ML IV SCH (08:01)
--- NOTE | 2020-07-22 10:28 | Cardiology Consultation ---
Date of Consultation July 22, 2020 Assessment & Plan (1) Acute hypoxemic respiratory failure: Likely multifactorial in etiology including possible aspiration with possible component of mild systolic heart failure. Patient's prior course notable for recent fall with newly observed left acetabular fracture. Patient seen 5 days after admission and currently appears euvolemic. Would not treat with additional diuretics currently. Agree with supplementation of potassium Respiratory status has improved per reports. Chronic left pleural effusion present Patient now answering occasional questions but and accurately without focal deficit Patient remains hypertensive and unable to take oral medications at this time Recommendations: Continue current therapies as ordered with increasing topical nitrates for further hypertension control. Would resume oral regimen as previously ordered once cleared to take p.o. We will interrogate pacemaker given concerns regarding possible syncope as etiology of initial decline Overall prognosis extremely limited (2) Altered mental status: (3) Chronic systolic CHF (congestive heart failure), NYHA class 3: (4) Ischemic cardiomyopathy: (5) Pacemaker: History of Present Illness Reason for Consultation: Encephalopathy, congestive heart failure Requesting Physician: Dr. Mars Attending Physician: Josias Mars MD History of Present Illness Patient is an extremely complex 80-year-old male ongoing issues which include 1. Atherosclerotic coronary disease, status post coronary bypass grafting March of 2002, receiving DIAZ graft to LAD, saphenous vein graft to left circumflex. 2. Recurrent ischemia with drug-eluting stent placed in the distal right coronary artery May of 2014 with patent grafts. 3. Severe cardiomyopathy, past ejection fraction LVEF 15-20% with a EF improved 3540% following biventricular pacemaker insertion 4. Prior history of sick sinus syndrome status post dual-chamber pacemaker insertion. 5. Status post July 05, 2017 device upgrade to a biventricular pacemaker without ICD (patient declined) 6. Carotid occlusive disease, moderate right carotid. 7. Hypertension. 8. Hyperlipidemia. 9. Colorectal carcinoma status post low anterior resection 08/25/2015 after chemo and radiation therapy. 10. Hospitalization at [facility] on 11/29/2015 with new onset seizure. No overt cardiac decompensation. 11. Reversal of ileostomy on 04/14/2016 complicated by bowel obstruction, perianastomotic hemorrhage requiring 3 units of packed red cells and discontinuation of antiplatelet therapy. 12. Acute left intracerebral artery stroke with complete thrombosis of the left internal carotid artery April of 2016, recurrent TIAs most recent December 2019 13. Type II diabetes mellitus 14. Chronic seizure disorder on Kera Patient was seen and examined with information gained by review of chart records. Patient unable to offer additional information but per staff is slightly more alert today than on previous days. Per records patient has been suffering gradual decline recently with complaints of worsening cough and possible aspiration. He is currently a resident of [facility] after hospitalization with hip fracture and surgical repair this spring. Patient recently suffered an additional mechanical fall question possible syncope with subsequent acetabular fracture noted this admission Patient presented with acute hypoxic respiratory failure and encephalopathy on 07/17/2020 symptoms possibly preceded by syncope Allergies Allergy/AdvReac Type Severity Reaction Status Date / Time tramadol Allergy Severe seizures Verified 07/17/20 21:24 iodine Allergy Intermediate airway Verified 07/17/20 21:24 edema oxycodone Allergy Intermediate "itchiness Verified 07/17/20 21:24 all over" codeine AdvReac Intermediate hallucinations, Verified 07/17/20 21:24 depression ANCELMO Inhibitors AdvReac Mild COUGHING Verified 07/17/20 21:24 felodipine AdvReac Mild cough Verified 07/17/20 21:24 Home Medications Home Medications Medication Instructions Recorded Confirmed Type carvedilol [Coreg] 18.75 mg PO BIDM 09/07/18 07/17/20 History clopidogrel [Plavix] 75 mg PO HS 09/07/18 07/17/20 History dicyclomine 20 mg PO Q6 PRN 09/07/18 07/17/20 History furosemide [Lasix] 40 mg PO 3XWK 09/07/18 07/17/20 History losartan [Cozaar] 100 mg PO QAM 09/07/18 07/17/20 History multivitamin 1 tab PO QDD 09/07/18 07/17/20 History nitroglycerin [Nitrostat] 0.4 mg SUBLINGUAL UD PRN 09/07/18 07/17/20 History hydralazine 12.5 mg PO TIDM 12/25/18 07/17/20 History Fiber Laxative (methylcellulo) 500 mg PO TIDM 02/01/20 07/17/20 History furosemide 20 mg PO 4XWK 02/01/20 07/17/20 History metformin 500 mg PO BIDM 02/01/20 07/17/20 History acetaminophen 1,000 mg PO Q8H #30 tab 02/10/20 07/17/20 Rx bisacodyl 10 mg MO DAILY PRN #30 ea 02/10/20 07/17/20 Rx ergocalciferol (vitamin D2) 50,000 unit PO Q7D@0900 #5 cap 02/10/20 07/17/20 Rx ferrous sulfate 325 mg PO TIDM #90 tab 02/10/20 07/17/20 Rx aspirin [Aspir-81] 81 mg PO HS 06/11/20 07/17/20 History dicyclomine 20 mg PO BID 06/11/20 07/17/20 History hydrocortisone [Anusol-HC] 1 applic MO BID 06/11/20 07/17/20 History loperamide [Imodium A-D] 2 mg PO Q4H PRN 06/11/20 07/17/20 History Saccharomyces boulardii [Florastor] 250 mg PO BID 07/17/20 07/17/20 History fluticasone propionate 2 spray INTRANASAL DAILY 07/17/20 07/17/20 History levetiracetam [Keppra] 500 mg PO BID 07/17/20 07/17/20 History omeprazole 40 mg PO DAILY 07/17/20 07/17/20 History oxycodone [Roxicodone] 5 mg PO Q6 PRN 07/17/20 07/17/20 History potassium chloride [Klor-Con M20] 20 meq PO AMHS 07/17/20 07/17/20 History rosuvastatin 5 mg PO HS 07/17/20 07/17/20 History sertraline 75 mg PO HS 07/17/20 07/17/20 History Patient History Medical History Anemia HX AV block "s/p pacemaker" Benign prostatic hyperplasia Carotid disease, bilateral "asymptomatic" Chronic kidney disease Coronary artery disease "s/p NE" Depression Diabetes mellitus, type II Dyslipidemia GERD (gastroesophageal reflux disease) History of skin cancer Hypertension Left bundle branch block Malignant neoplasm of rectum (04/02/15) "Rectal bleeding Status post colonoscopy and biopsy 04/02/2015 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 Status post endoscopic ultrasound stage [id number] Neoadjuvant radiation and chemotherapy Chemotherapy comprised of Xeloda Status post completion of radiation therapy 06/24/2015 received 5460 cGy Status post rectosigmoid resection 08/27/2015 ypT2 ypN0 M0 Status post ileostomy closure 04/14/2016, gait by small bowel obstruction and then hemorrhage Status post CVA and then slow wound healing" On 01/20/16 16:12 Celeste Burrell wrote "Rectal bleeding Status post colonoscopy and biopsy 04/02/2015 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 Status post endoscopic ultrasound stage [id number] Neoadjuvant radiation and chemotherapy Chemotherapy comprised of Xeloda Status post completion of radiation therapy 06/24/2015 received 5460 cGy Status post rectosigmoid resection 08/27/2015 ypT2 ypN0 M0" On 07/02/15 10:41 Celeste Burrell wrote "Rectal bleeding Status post colonoscopy and biopsy 04/02/2015 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 Status post endoscopic ultrasound stage [id number] Neoadjuvant radiation and chemotherapy Chemotherapy comprised of Xeloda Status post completion of radiation therapy 06/24/2015 received 5460 cGy" Osteoporosis Seizure UNSPECIFIED Stroke Vitamin D deficiency Surgical History H/O ileostomy History of esophagogastroduodenoscopy (EGD) S/P colon resection Status post cardiac pacemaker procedure "initial 2005, generator change 2011" Status post cholecystectomy Status post coronary artery bypass grafting "Dr. Stephens [facility] 2001 DIAZ-LAD, SVG left circumflex" Status post shoulder surgery Status post tonsillectomy Family History Other Family history non-contributory Social History Smoking Status: Unknown if ever smoked Second Hand Exposure: No; Hx Alcohol Use: No Hx Substance Use: No Preferred Language: Spanish Communication Ability: Impaired Tub Chucker Required: No Beliefs That Will Affect Care: None Current Living Situation: Shelter Other Information That Helps Us Care for You: No Feels Safe at Home: Declines to Answer Review of Systems Review of Systems: Unobtainable due to cognitive status Physical Exam Constitutional: no acute distress Frail weak appearing Eyes: PERRL, conjunctivae normal, anicteric sclerae ENMT: external ear and nose normal, oropharynx normal Respiratory: Auscultation: + diminished lung sounds Cardiovascular: Rate/Rhythm: regular rate Vessels: no JVD Extremities: no edema Gastrointestinal (Abdomen): Inspection/Auscultation: abdomen not distended Percussion/Palpation: abdomen nontender Musculoskeletal: Head/Neck/Chest: normocephalic and head atraumatic Results & Data ([facility]) Vital Signs (Past 12 Hours) Vital Signs Temp Pulse Pulse Resp BP BP Pulse Ox 07/22/20 08:00 75 07/22/20 07:22 36.6 C 74 18 193/87 H 97 07/22/20 04:49 77 197/86 H 07/22/20 04:00 36.8 C 77 16 196/86 H 96 07/22/20 01:00 36.4 C L 62 16 136/80 96 07/22/20 00:00 07/21/20 23:39 36.7 C 71 19 165/79 H 99 Pulse Ox 07/22/20 08:00 07/22/20 07:22 07/22/20 04:49 07/22/20 04:00 96 07/22/20 01:00 07/22/20 00:00 96 07/21/20 23:39 Laboratory Results Laboratory Results - last 24 hr 07/18/20 07/21/20 07/22/20 01:47 11:23 00:27 WBC RBC Hgb Hct MCV MCH MCHC RDW Std Deviation RDW Coeff of Arabella Plt Count MPV Immature Gran % (Auto) Neut % (Auto) Lymph % (Auto) Person % (Auto) Eos % (Auto) Baso % (Auto) Neut # (Auto) Lymph # (Auto) Person # (Auto) Eos # (Auto) Baso # (Auto) Immature Gran # (Auto) Sodium Potassium Chloride Carbon Dioxide Anion Gap BUN Creatinine Est Cr Clr Drug Dosing Est GFR ( Amer) Est GFR (Non-Af Amer) BUN/Creatinine Ratio Glucose POC Glucose 134 H 145 H Calcium Phosphorus Magnesium Levetiracetam 23.9 07/22/20 07/22/20 07/22/20 06:09 06:12 06:12 WBC 8.82 RBC 3.83 L Hgb 11.7 L Hct 36.2 L MCV 94.5 MCH 30.5 MCHC 32.3 RDW Std Deviation 50.0 H RDW Coeff of Arabella 14.7 H Plt Count 151 MPV 10.8 H Immature Gran % (Auto) 1.5 Neut % (Auto) 76.8 Lymph % (Auto) 12.5 Person % (Auto) 5.9 Eos % (Auto) 3.2 Baso % (Auto) 0.1 Neut # (Auto) 6.78 H Lymph # (Auto) 1.10 L Person # (Auto) 0.52 Eos # (Auto) 0.28 Baso # (Auto) 0.01 Immature Gran # (Auto) 0.13 H Sodium 144 Potassium 3.0 L Chloride 107 Carbon Dioxide 31 Anion Gap 6.0 BUN 27 H Creatinine 0.82 Est Cr Clr Drug Dosing 70.8 Est GFR ( Amer) 96.1 Est GFR (Non-Af Amer) 82.9 BUN/Creatinine Ratio 32.6 H Glucose 136 H POC Glucose 138 H Calcium 9.4 Phosphorus Magnesium Levetiracetam 07/22/20 06:12 WBC RBC Hgb Hct MCV MCH MCHC RDW Std Deviation RDW Coeff of Arabella Plt Count MPV Immature Gran % (Auto) Neut % (Auto) Lymph % (Auto) Person % (Auto) Eos % (Auto) Baso % (Auto) Neut # (Auto) Lymph # (Auto) Person # (Auto) Eos # (Auto) Baso # (Auto) Immature Gran # (Auto) Sodium Potassium Chloride Carbon Dioxide Anion Gap BUN Creatinine Est Cr Clr Drug Dosing Est GFR ( Amer) Est GFR (Non-Af Amer) BUN/Creatinine Ratio Glucose POC Glucose Calcium Phosphorus 2.5 Magnesium 1.9 Levetiracetam (1) Altered mental status Altered mental status type: unspecified Qualified Code(s): R41.82 - Altered mental status, unspecified
--- NOTE | 2020-07-22 11:12 | Hospitalist Progress Note ---
Date of Service July 22, 2020 Assessment & Plan (1) Acute hypoxemic respiratory failure: Acute hypoxic respiratory failure, multifactorial secondary to: Healthcare associated pneumonia with possible aspiration component Severe sepsis -80-year-old male with history of CAD/CABG, ischemic cardiomyopathy, sick sinus syndrome status post pacemaker, Diabetes type 2, hypertension, CVA, seizure, DVT, colorectal cancer, presenting with shortness of breath and hypoxia. (SIRS plus hypoxemia plus encephalopathy plus lactic acidosis secondary to above) -admission CT chest: Cardiomegaly and extensive coronary artery calcifications. Bilateral pleural effusions left greater than right with associated lower lobe atelectasis/consolidation. Subtle apical predominant groundglass pulmonary opacities, possibly representing pulmonary edema. An infectious/inflammatory processes could appear similar. 13 mm right upper lobe pulmonary nodule. Given the additional findings, this may be infectious/inflammatory. A one month follow-up chest CT is recommended. -Nasal MRSA swab: Negative COVID test: Negative Blood cultures Negative urine culture negative -on supplementary oxygen -has been on empiric Zosyn plus doxycycline, since there is no underlying bacteremia source of infection found to date, will plan on transition to to ceftriaxone and doxycyline starting on 07/22/2020 -07/21/2020: Speech therapy consulted-diet resumed today however during the afternoon, patient was noted to be coughing with initiation of diet -07/22/2020: NPO and awaiting speech and swallow re-assessment Acute diastolic congestive heart failure exacerbation Ischemic cardiomyopathy History of CAD, status post CABG Sick sinus syndrome, status post pacemaker placement Hypertension Echocardiogram: EF 25 to 30%, diffuse hypokinesis to akinesis, moderate defect regurgitation, compared to 2018, left ventricular systolic function is mildly impaired -mildly elevated troponins on this admission -usually on Lasix 20 mg 4 times a week, 40 mg 3 times a week, was given IV Lasix on 07/21/2020 -07/22/2020 cardiology consult: "Continue current therapies as ordered with increasing topical nitrates for further hypertension control. Would resume oral regimen as previously ordered once cleared to take p.o. We will interrogate pacemaker given concerns regarding possible syncope as etiology of initial decline" Acute Metabolic Encephalopathy, Metabolic History of CVA in the past -There is a right arm restriction but recent workup by head CT without evidence for acute stroke and no stroke as per recent neurology service assessment on 07/21/2020. Patient lacking IV sites for medications. order is placed by medical doctor to allow IV team to access right arm for ultrasound peripheral guided access if needed. -currently has rectal ASA History of seizure disorder -on Keppra Left acetabular fracture -Status post mechanical fall, patient unfortunately fell from his bed days before hospital presentation -Orthopedic service consulted and they recommend conservative management at this point -feet are in waffle boots, patient not appear to be able to lift left leg much history DVT as per records -Heparin SC q21h Melena -reported? -Recent outpatient EGD from last month just showed gastritis. -Hemoglobin stable at around 12 -Continue Protonix Chronic thrombocytopenia. Type 2 diabetes mellitus -well-controlled as of recent hemoglobin A1c of 6.09 June 2019 -sliding scale insulin as needed Colorectal CA status post surgery status post chemoradiation Resident of [facility] Admission and Anticipated Discharge Date Admission Date: July 17, 2020 Subjective Patient seen and examined. There is a right arm restriction but recent workup by head CT without evidence for acute stroke and no stroke as per recent neurology service assessment on 07/21/2020. Patient lacking IV sites for medications. order is placed by medical doctor to allow IV team to access right arm for ultrasound peripheral guided access if needed. Patient appears weak but but to follow directions to move the upper extremities on both sides. He is able to stick out the tongue when asked. His mouth appears dry. Patient's leg in waffle boots bilaterally Review of Systems Review of Systems: All systems reviewed & are unremarkable except as noted in Subjective Physical Exam Constitutional: cooperative Eyes: PERRL, conjunctivae normal, anicteric sclerae ENMT: external ear and nose normal, oropharynx normal Neck: normal visual inspection Respiratory: normal respiratory effort, lungs clear to auscultation Cardiovascular: Rate/Rhythm: regular rate Gastrointestinal (Abdomen): normal bowel sounds, soft, nontender, no hepatosplenomegaly Musculoskeletal: Head/Neck/Chest: normocephalic and head atraumatic Patient appears weak but but to follow directions to move the upper extremities on both sides. He is able to stick out the tongue when asked. His mouth appears dry. Patient's leg in waffle boots bilaterally Neurologic: awake Psychiatric: Orientation: alert and cooperative Results & Data Results & Data ([facility]) Vital Signs (Past 12 Hours) Vital Signs Temp Pulse Pulse Resp BP BP Pulse Ox 07/22/20 08:00 75 07/22/20 07:22 36.6 C 74 18 193/87 H 97 07/22/20 04:49 77 197/86 H 07/22/20 04:00 36.8 C 77 16 196/86 H 96 07/22/20 01:00 36.4 C L 62 16 136/80 96 07/22/20 00:00 07/21/20 23:39 36.7 C 71 19 165/79 H 99 Pulse Ox 07/22/20 08:00 07/22/20 07:22 07/22/20 04:49 07/22/20 04:00 96 07/22/20 01:00 07/22/20 00:00 96 07/21/20 23:39
[2020-07-22] MEDS: levETIRAcetam 500 MG in 0.9 % SODIUM CHLORIDE 100 ML IV SCH (11:51)
[2020-07-22] MEDS: DOXYCYCLINE HYCLATE 100 MG in DEXTROSE 5% 100 ML IV SCH ×2 (11:51→22:15)
[2020-07-22] MEDS: cefTRIAXone SODIUM 1,000 MG in DEXTROSE 5% 50 ML IV SCH (12:53)
[2020-07-22] MEDS: MULTIVITAMIN TAB PO SCH (16:19)
[2020-07-22] MEDS ORDERED: Nursing to Pharmacy Communication SCH (18:45)
[2020-07-22] MEDS: ROSUVASTATIN CALCIUM 5 MG TAB PO SCH (19:59)
[2020-07-22] MEDS: ACETAMINOPHEN 1000 MG/100 ML IV IV PRN (20:00)
[2020-07-22] MEDS: SERTRALINE HCL 50 MG TABLET PO SCH (20:01)
[2020-07-22] MEDS: INSULIN GLARGINE SOLOSTAR 100 UNITS/ML 3 ML PEN SC SCH (20:14)
[2020-07-22] MEDS: ASPIRIN 300 MG SUPP PR SCH (20:15)
[2020-07-23] MEDS: levETIRAcetam 500 MG in 0.9 % SODIUM CHLORIDE 100 ML IV SCH ×3 (00:35→21:55)
[2020-07-23] MEDS: HydrALAZINE HCL 20 MG/ML VIAL IV SCH ×3 (02:11→14:37)
[2020-07-23] MEDS: METOPROLOL TARTRATE 1 MG/ML VIAL IV SCH ×2 (05:46→10:55)
[2020-07-23 06:03] LABS: Basophils # (auto) 0.01 K/uL (0-0.2); Basophils % (auto) 0.2 %; Hematocrit (blood only) 33.9 % (42-52); Hemoglobin 10.8 g/dL (14.0-18.0); Immature Granulocytes # (auto) 0.13 K/uL (0.00-0.02); Lymphocytes # (auto) 1.25 K/uL (1.2-3.4); Lymphocytes % (auto) 18.9 %; Mean Corpuscular Hemoglobin 30.3 pg (25-34); Mean Corpuscular Hgb Conc 31.9 g/dL (32-36); Mean Corpuscular Volume 95.2 fL (80-100); Mean Platelet Volume 10.6 fL (7.4-10.4); Monocytes # (auto) 0.45 K/uL (0.11-0.59); Monocytes % (auto) 6.8 %; Neutrophils # (auto) 4.56 K/uL (1.4-6.5); Neutrophils % (auto) 69.1 %; Platelet Count 140 K/uL (130-400); RDW Coefficient of Variation 14.6 % (11.5-14.5); RDW Standard Deviation 50.7 fL (36.4-46.3); Red Blood Count 3.56 M/uL (4.7-6.1)
[2020-07-23] MEDS: ACETAMINOPHEN 1000 MG/100 ML IV IV PRN (06:07)
[2020-07-23] MEDS: NITROGLYCERIN 2% OINTMENT 30GM TUBE EXT SCH ×3 (06:08→17:08)
[2020-07-23 06:35] LABS: Albumin Level 2.8 gm/dl (3.4-5.0); BUN Creatinine Ratio 35.3 (10-20); Calcium 9.4 mg/dl (8.5-10.1); Creatinine Clr Calc Pharmacy 77.4 ml/min; Est GFR (African American) 99.7; Magnesium 1.9 mg/dl (1.8-2.4)
[2020-07-23 06:38] LABS: Albumin Globulin Ratio 0.8 (0.9-2); Bilirubin,Total 0.5 mg/dl (0.2-1); Globulin 3.3 gm/dl (2.5-4.0); Total Protein 6.1 gm/dl (6.4-8.2)
[2020-07-23] MEDS: PANTOprazole 40 MG in SYRINGE 0 ML IV SCH (08:00)
[2020-07-23] MEDS: LOSARTAN POTASSIUM 50 MG TAB PO SCH (08:01)
[2020-07-23] MEDS: SACCHAROMYCES BOULARDII 250 MG CAP PO SCH ×2 (08:02→21:52)
[2020-07-23] MEDS: HEPARIN SOD 5,000 UNIT/0.5 ML VIAL SQ SCH ×2 (08:03→23:13)
[2020-07-23] MEDS: FLUTICASONE PROPIONATE NA SPR 16 GM BTL SCH (08:03)
[2020-07-23] MEDS: INSULIN ASPART 100 UNITS/ML 3 ML PEN SC SCH ×4 (08:03→22:10)
[2020-07-23] MEDS: DOXYCYCLINE HYCLATE 100 MG in DEXTROSE 5% 100 ML IV SCH ×2 (09:38→23:45)
[2020-07-23] MEDS: POTASSIUM CHLORIDE / WTR 10 MEQ/100 ML PLCT IV SCH ×2 (09:41→10:46)
[2020-07-23] MEDS ORDERED: POTASSIUM CHLORIDE 20 MEQ/15 ML UDC PO ONE (09:45)
[2020-07-23] MEDS ORDERED: MAGNESIUM SULFATE / D5W 1 GM/100 ML BAG IV ONE (09:45)
[2020-07-23] MEDS: cefTRIAXone SODIUM 1,000 MG in DEXTROSE 5% 50 ML IV SCH (11:37)
--- NOTE | 2020-07-23 13:42 | Cardiology Progress Note ---
Date of Service July 23, 2020 Assessment & Plan (1) Acute hypoxemic respiratory failure: Likely multifactorial in etiology including possible aspiration with possible component of mild systolic heart failure. Patient's prior course notable for recent fall with newly observed left acetabular fracture. Patient seen 5 days after admission and currently appears euvolemic. Would not treat with additional diuretics currently. Agree with supplementation of potassium Respiratory status has improved per reports. Chronic left pleural effusion present Patient now answering occasional questions but and accurately without focal deficit Patient remains hypertensive and unable to take oral medications at this time Recommendations: Would resume oral hypertensive regimen ordered prehospital. Should be able to discontinue IV antihypertensives Caution with any [employer] sedating medication (2) Altered mental status: (3) Chronic systolic CHF (congestive heart failure), NYHA class 3: (4) Ischemic cardiomyopathy: (5) Pacemaker: Admission and Anticipated Discharge Date Admission Date: July 17, 2020 Subjective Patient seen and examined, chart, medications, telemetry reviewed. Patient slightly more alert today was able to eat and take medications this morning. No focal complaints Physical Exam Constitutional: no acute distress Eyes: PERRL, conjunctivae normal, anicteric sclerae ENMT: external ear and nose normal, oropharynx normal Respiratory: Auscultation: + diminished lung sounds Cardiovascular: Rate/Rhythm: regular rate Vessels: no JVD Extremities: no edema Gastrointestinal (Abdomen): Inspection/Auscultation: abdomen not distended Percussion/Palpation: abdomen nontender Musculoskeletal: Head/Neck/Chest: normocephalic and head atraumatic Results & Data ([facility]) Vital Signs (Past 12 Hours) Vital Signs Temp Pulse Pulse Resp BP BP Pulse Ox 07/23/20 10:50 36.9 C 77 20 188/71 H 98 07/23/20 08:04 37.0 C 98 H 20 189/102 H 98 07/23/20 05:46 93 H 204/104 H 07/23/20 02:45 36.4 C L 76 19 170/81 H 100 Laboratory Results Laboratory Results - last 24 hr 07/22/20 07/22/20 07/23/20 17:57 20:13 05:43 WBC 6.60 RBC 3.56 L Hgb 10.8 L Hct 33.9 L MCV 95.2 MCH 30.3 MCHC 31.9 L RDW Std Deviation 50.7 H RDW Coeff of Arabella 14.6 H Plt Count 140 MPV 10.6 H Immature Gran % (Auto) 2.0 Neut % (Auto) 69.1 Lymph % (Auto) 18.9 Payette % (Auto) 6.8 Eos % (Auto) 3.0 Baso % (Auto) 0.2 Neut # (Auto) 4.56 Lymph # (Auto) 1.25 Payette # (Auto) 0.45 Eos # (Auto) 0.20 Baso # (Auto) 0.01 Immature Gran # (Auto) 0.13 H Sodium Potassium Chloride Carbon Dioxide Anion Gap BUN Creatinine Est Cr Clr Drug Dosing Est GFR ( Amer) Est GFR (Non-Af Amer) BUN/Creatinine Ratio Glucose POC Glucose 154 H 160 H Calcium Magnesium Total Bilirubin AST ALT Alkaline Phosphatase Total Protein Albumin Globulin Albumin/Globulin Ratio 07/23/20 07/23/20 05:43 11:36 WBC RBC Hgb Hct MCV MCH MCHC RDW Std Deviation RDW Coeff of Arabella Plt Count MPV Immature Gran % (Auto) Neut % (Auto) Lymph % (Auto) Payette % (Auto) Eos % (Auto) Baso % (Auto) Neut # (Auto) Lymph # (Auto) Payette # (Auto) Eos # (Auto) Baso # (Auto) Immature Gran # (Auto) Sodium 145 Potassium 3.0 L Chloride 108 H Carbon Dioxide 35 H Anion Gap 2.0 L BUN 27 H Creatinine 0.75 Est Cr Clr Drug Dosing 77.4 Est GFR ( Amer) 99.7 Est GFR (Non-Af Amer) 86.0 BUN/Creatinine Ratio 35.3 H Glucose 125 H POC Glucose 174 H Calcium 9.4 Magnesium 1.9 Total Bilirubin 0.5 AST 25 ALT 29 Alkaline Phosphatase 94 Total Protein 6.1 L Albumin 2.8 L Globulin 3.3 Albumin/Globulin Ratio 0.8 L (1) Altered mental status Altered mental status type: unspecified Qualified Code(s): R41.82 - Altered mental status, unspecified
[2020-07-23] MEDS ORDERED: carvediloL 3.125 MG TAB PO ONE (15:28)
--- NOTE | 2020-07-23 15:41 | Hospitalist Progress Note ---
Date of Service July 23, 2020 Assessment & Plan (1) Acute hypoxemic respiratory failure: Acute hypoxic respiratory failure, multifactorial secondary to: Healthcare associated pneumonia with possible aspiration component Severe sepsis -80-year-old male with history of CAD/CABG, ischemic cardiomyopathy, sick sinus syndrome status post pacemaker, Diabetes type 2, hypertension, CVA, seizure, DVT, colorectal cancer, presenting with shortness of breath and hypoxia. (SIRS plus hypoxemia plus encephalopathy plus lactic acidosis secondary to above) -admission CT chest: Cardiomegaly and extensive coronary artery calcifications. Bilateral pleural effusions left greater than right with associated lower lobe atelectasis/consolidation. Subtle apical predominant groundglass pulmonary opacities, possibly representing pulmonary edema. An infectious/inflammatory processes could appear similar. 13 mm right upper lobe pulmonary nodule. Given the additional findings, this may be infectious/inflammatory. A one month follow-up chest CT is recommended. -Nasal MRSA swab: Negative COVID test: Negative Blood cultures Negative urine culture negative -on supplementary oxygen -has been on empiric Zosyn plus doxycycline, since there is no underlying bacteremia source of infection found to date, transition to to ceftriaxone and doxycyline starting on 07/22/2020 -07/21/2020: Speech therapy consulted-diet resumed today however during the afternoon, patient was noted to be coughing with initiation of diet -07/22/2020: NPO and awaiting speech and swallow re-assessment Acute diastolic congestive heart failure exacerbation Ischemic cardiomyopathy History of CAD, status post CABG Sick sinus syndrome, status post pacemaker placement Hypertension Echocardiogram: EF 25 to 30%, diffuse hypokinesis to akinesis, moderate defect regurgitation, compared to 2018, left ventricular systolic function is mildly impaired -mildly elevated troponins on this admission -usually on Lasix 20 mg 4 times a week, 40 mg 3 times a week, was given IV Lasix on 07/21/2020 -07/22/2020 cardiology consult: "Continue current therapies as ordered with increasing topical nitrates for further hypertension control. Would resume oral regimen as previously ordered once cleared to take p.o. We will interrogate pacemaker given concerns regarding possible syncope as etiology of initial decline" -07/23/2020: patient taking more oral intake on 07/23/2020, will resume aspirin as oral form starting on 07/24/2020 rather than rectal, resume low dose carvedilol starting on 07/23/2020. will resume home dose Lasix Hypokalemia -patient ishas been getting potassium supplements because serum potassium around 3 for several days despite repletion Acute Metabolic Encephalopathy, Metabolic History of CVA in the past -There is a right arm restriction but recent workup by head CT without evidence for acute stroke and no stroke as per recent neurology service assessment on 07/21/2020. Patient lacking IV sites for medications. order is placed by medical doctor to allow IV team to access right arm for ultrasound peripheral guided access if needed. History of seizure disorder -on Keppra Left acetabular fracture -Status post mechanical fall, patient unfortunately fell from his bed days before hospital presentation -Orthopedic service consulted and they recommend conservative management at this point -feet are in waffle boots, patient not appear to be able to lift left leg much history DVT as per records -Heparin SC q21h Melena -reported? -Recent outpatient EGD from last month just showed gastritis. -Hemoglobin stable at around 12 -Continue Protonix Chronic thrombocytopenia. Type 2 diabetes mellitus -well-controlled as of recent hemoglobin A1c of 6.09 June 2019 -sliding scale insulin as needed Colorectal CA status post surgery status post chemoradiation Resident of [facility] Admission and Anticipated Discharge Date Admission Date: July 17, 2020 Subjective -feet are in waffle boots, patient not appear to be able to lift left leg much just like yesterday however, patient more active. more oral intake on 07/23/2020. He responds to questions in soft voice. he is cooperative. telemetry continues to show paced rate and rhythm. Review of Systems Review of Systems: All systems reviewed & are unremarkable except as noted in Subjective Physical Exam Constitutional: cooperative Eyes: PERRL, conjunctivae normal, anicteric sclerae ENMT: external ear and nose normal, oropharynx normal Neck: normal visual inspection Respiratory: normal respiratory effort, lungs clear to auscultation Cardiovascular: Rate/Rhythm: regular rate Gastrointestinal (Abdomen): normal bowel sounds, soft, nontender, no hepatosplenomegaly Musculoskeletal: Head/Neck/Chest: normocephalic and head atraumatic Neurologic: awake Psychiatric: Orientation: alert and cooperative Results & Data Results & Data ([facility]) Vital Signs (Past 12 Hours) Vital Signs Temp Pulse Pulse Resp BP BP Pulse Ox 07/23/20 15:00 84 167/73 H 07/23/20 14:40 36.9 C 83 20 196/90 H 95 07/23/20 10:50 36.9 C 77 20 188/71 H 98 07/23/20 08:04 37.0 C 98 H 20 189/102 H 98 07/23/20 05:46 93 H 204/104 H
[2020-07-23 16:14] LABS: BUN Creatinine Ratio 34.4 (10-20); Calcium 9.2 mg/dl (8.5-10.1); Creatinine Clr Calc Pharmacy 84.1 ml/min; Est GFR (African American) 103.2
[2020-07-23 16:15] LABS: Potassium 4.3 mmol/L (3.5-5.1)
[2020-07-23] MEDS: MULTIVITAMIN TAB PO SCH (16:59)
[2020-07-23] MEDS: FUROSEMIDE 20 MG TAB PO SCH (17:12)
[2020-07-23] MEDS: ROSUVASTATIN CALCIUM 5 MG TAB PO SCH (21:50)
[2020-07-23] MEDS: ASPIRIN 81 MG ECTAB PO SCH (21:51)
[2020-07-23] MEDS: SERTRALINE HCL 50 MG TABLET PO SCH (21:54)
[2020-07-23] MEDS: INSULIN GLARGINE SOLOSTAR 100 UNITS/ML 3 ML PEN SC SCH (22:10)
[2020-07-24] MEDS: NITROGLYCERIN 2% OINTMENT 30GM TUBE EXT SCH ×4 (00:34→18:09)
[2020-07-24 06:30] LABS: BUN Creatinine Ratio 30.6 (10-20); Calcium 9.5 mg/dl (8.5-10.1); Creatinine Clr Calc Pharmacy 74.4 ml/min; Est GFR (African American) 98.1; Est GFR (Non-African American) 84.7; Potassium 3.1 mmol/L (3.5-5.1)
[2020-07-24] MEDS ORDERED: POTASSIUM CHLORIDE 20 MEQ/15 ML UDC PO ONE (07:45)
[2020-07-24] MEDS: POTASSIUM CHLORIDE / WTR 10 MEQ/100 ML PLCT IV SCH ×2 (08:41→10:06)
[2020-07-24] MEDS: PANTOprazole 40 MG in SYRINGE 0 ML IV SCH (08:47)
[2020-07-24] MEDS: FUROSEMIDE 20 MG TAB PO SCH (08:49)
[2020-07-24] MEDS: LOSARTAN POTASSIUM 50 MG TAB PO SCH (08:49)
[2020-07-24] MEDS: FLUTICASONE PROPIONATE NA SPR 16 GM BTL SCH (08:50)
[2020-07-24] MEDS: SACCHAROMYCES BOULARDII 250 MG CAP PO SCH ×2 (08:50→20:59)
[2020-07-24] MEDS ORDERED: carvediloL 3.125 MG TAB PO SCH (09:00)
[2020-07-24] MEDS: HEPARIN SOD 5,000 UNIT/0.5 ML VIAL SQ SCH ×2 (09:07→21:08)
[2020-07-24] MEDS: INSULIN ASPART 100 UNITS/ML 3 ML PEN SC SCH ×4 (09:25→21:08)
[2020-07-24] MEDS: DOXYCYCLINE HYCLATE 100 MG in DEXTROSE 5% 100 ML IV SCH ×2 (11:02→21:58)
[2020-07-24] MEDS: levETIRAcetam 500 MG in 0.9 % SODIUM CHLORIDE 100 ML IV SCH ×2 (12:49→21:35)
[2020-07-24] MEDS: cefTRIAXone SODIUM 1,000 MG in DEXTROSE 5% 50 ML IV SCH (13:13)
--- NOTE | 2020-07-24 17:08 | Hospitalist Progress Note ---
Date of Service July 24, 2020 Assessment & Plan (1) Acute hypoxemic respiratory failure: Acute hypoxic respiratory failure, multifactorial secondary to: Healthcare associated pneumonia with possible aspiration component Severe sepsis -80-year-old male with history of CAD/CABG, ischemic cardiomyopathy, sick sinus syndrome status post pacemaker, Diabetes type 2, hypertension, CVA, seizure, DVT, colorectal cancer, presenting with shortness of breath and hypoxia. (SIRS plus hypoxemia plus encephalopathy plus lactic acidosis secondary to above) -admission CT chest: Cardiomegaly and extensive coronary artery calcifications. Bilateral pleural effusions left greater than right with associated lower lobe atelectasis/consolidation. Subtle apical predominant groundglass pulmonary opacities, possibly representing pulmonary edema. An infectious/inflammatory processes could appear similar. 13 mm right upper lobe pulmonary nodule. Given the additional findings, this may be infectious/inflammatory. A one month follow-up chest CT is recommended. -Nasal MRSA swab: Negative COVID test: Negative Blood cultures Negative urine culture negative -on supplementary oxygen -07/21/2020: Speech therapy consulted-diet resumed today however during the afternoon, patient was noted to be coughing with initiation of diet, patient eventually passed swallowing tests on subsequent days -had been on empiric Zosyn plus doxycycline, since there is no underlying bacteremia source of infection found to date, transitioned to to ceftriaxone and doxycycline starting on 07/22/2020, will order follow CXR Acute diastolic congestive heart failure exacerbation Ischemic cardiomyopathy History of CAD, status post CABG Sick sinus syndrome, status post pacemaker placement Hypertension Echocardiogram: EF 25 to 30%, diffuse hypokinesis to akinesis, moderate defect regurgitation, compared to 2018, left ventricular systolic function is mildly impaired -mildly elevated troponins on this admission -usually on Lasix 20 mg 4 times a week, 40 mg 3 times a week, was given IV Lasix on 07/21/2020 -07/22/2020 cardiology consult: "Continue current therapies as ordered with increasing topical nitrates for further hypertension control. Would resume oral regimen as previously ordered once cleared to take p.o. We will interrogate pacemaker given concerns regarding possible syncope as etiology of initial decline" -07/23/2020: patient taking more oral intake on 07/23/2020, will resume aspirin as oral form starting on 07/24/2020 rather than rectal, -low dose BID carvedilol started on 07/23/2020 and to be increased to 12.5 mg BID starting on evening of 07/24/2020, currently on Lasix 20 mg oral daily for now Hypokalemia -patient has been getting daily potassium supplements because serum potassium around 3 for several days despite repletion Acute Metabolic Encephalopathy, Metabolic History of CVA in the past -There is a right arm restriction but recent workup by head CT without evidence for acute stroke and no stroke as per recent neurology service assessment on 07/21/2020. History of seizure disorder -on Keppra Left acetabular fracture -Status post mechanical fall, patient unfortunately fell from his bed days before hospital presentation -Orthopedic service consulted and they recommend conservative management at this point -feet are in waffle boots, patient not appear to be able to lift left leg much likely from the fracture injury with repair history DVT as per records -Heparin SC q12 hours Melena -reported? -Recent outpatient EGD from last month just showed gastritis. -Hemoglobin stable at around 12 -Continue Protonix Chronic thrombocytopenia. Type 2 diabetes mellitus -well-controlled as of recent hemoglobin A1c of 6.09 June 2019 -sliding scale insulin as needed Colorectal CA -status post surgery status post chemoradiation in the past Resident of [facility] Admission and Anticipated Discharge Date Admission Date: July 17, 2020 Subjective awake,soft spoken, answers questions, and cooperative. patient denies acute distress. he does not report of other symptoms. his family members at the bedside and all their questions have been answered by hospitalist physician Review of Systems Review of Systems: All systems reviewed & are unremarkable except as noted in Subjective Physical Exam Constitutional: cooperative Eyes: PERRL, conjunctivae normal, anicteric sclerae ENMT: external ear and nose normal, oropharynx normal Neck: normal visual inspection Respiratory: normal respiratory effort, lungs clear to auscultation Cardiovascular: Rate/Rhythm: regular rate Gastrointestinal (Abdomen): normal bowel sounds, soft, nontender, no hepatosplenomegaly Musculoskeletal: Head/Neck/Chest: normocephalic and head atraumatic legs in waffle boots Neurologic: awake (soft spoken, answers questions, and cooperative) Psychiatric: Orientation: alert and cooperative Results & Data Results & Data ([facility]) Vital Signs (Past 12 Hours) Vital Signs Temp Pulse Resp BP Pulse Ox 07/24/20 14:40 37.3 C 93 H 16 180/91 H 96 07/24/20 12:55 84 168/85 H 07/24/20 07:27 37.0 C 89 18 176/85 H 96
[2020-07-24] MEDS: MULTIVITAMIN TAB PO SCH (17:44)
[2020-07-24] MEDS: POTASSIUM CHLORIDE 20 MEQ/15 ML UDC PO SCH (17:48)
[2020-07-24] MEDS: THIAMINE HCL 100 MG TAB PO SCH (20:57)
[2020-07-24] MEDS: ROSUVASTATIN CALCIUM 5 MG TAB PO SCH (20:58)
[2020-07-24] MEDS: carvediloL 12.5 MG TAB PO SCH (20:58)
[2020-07-24] MEDS: ASPIRIN 81 MG ECTAB PO SCH (20:58)
[2020-07-24] MEDS: SERTRALINE HCL 50 MG TABLET PO SCH (20:58)
[2020-07-24] MEDS: INSULIN GLARGINE SOLOSTAR 100 UNITS/ML 3 ML PEN SC SCH (21:09)
[2020-07-25] MEDS: NITROGLYCERIN 2% OINTMENT 30GM TUBE EXT SCH ×2 (00:08→06:43)
[2020-07-25] MEDS ORDERED: FUROSEMIDE 20 MG in SYRINGE 0 ML IV ONE (06:13)
[2020-07-25 07:08] LABS: Albumin Globulin Ratio 0.8 (0.9-2); Albumin Level 2.7 gm/dl (3.4-5.0); BUN Creatinine Ratio 26.7 (10-20); Bilirubin,Total 0.5 mg/dl (0.2-1); Calcium 9.5 mg/dl (8.5-10.1); Creatinine Clr Calc Pharmacy 77.2 ml/min; Est GFR (African American) 96.6; Est GFR (Non-African American) 83.4; Globulin 3.5 gm/dl (2.5-4.0); Total Protein 6.2 gm/dl (6.4-8.2)
--- NOTE | 2020-07-25 08:09 | Hospitalist Progress Note ---
Date of Service July 25, 2020 Assessment & Plan (1) Acute hypoxemic respiratory failure: Acute hypoxic respiratory failure, multifactorial secondary to: Healthcare associated pneumonia with possible aspiration component Severe sepsis -80-year-old male with history of CAD/CABG, ischemic cardiomyopathy, sick sinus syndrome status post pacemaker, Diabetes type 2, hypertension, CVA, seizure, DVT, colorectal cancer, presenting with shortness of breath and hypoxia. (SIRS plus hypoxemia plus encephalopathy plus lactic acidosis secondary to above) -admission CT chest: Cardiomegaly and extensive coronary artery calcifications. Bilateral pleural effusions left greater than right with associated lower lobe atelectasis/consolidation. Subtle apical predominant groundglass pulmonary opacities, possibly representing pulmonary edema. An infectious/inflammatory processes could appear similar. 13 mm right upper lobe pulmonary nodule. Given the additional findings, this may be infectious/inflammatory. A one month follow-up chest CT is recommended. -Nasal MRSA swab: Negative COVID test: Negative Blood cultures Negative urine culture negative -on supplementary oxygen -07/21/2020: Speech therapy consulted-diet resumed today however during the afternoon, patient was noted to be coughing with initiation of diet, patient eventually passed swallowing tests on subsequent days -had been on empiric Zosyn plus doxycycline, since there is no underlying bacteremia source of infection found to date, transitioned to to ceftriaxone and doxycycline starting on 07/22/2020, -07/25/2020: Patient sleeping and I did not wish to disturb him from sleep on the physical exam. No acute events overnight but night time doctor was requested to give additional IV lasix because of volume status. I had previous discussed with patient and his family on 07/24/2020 that I did not wish to be aggressive on the Lasix because of recent hypokalemia. A chest X ray will be performed on 07/25/2020. The blood pressures are better with recent increase in carvedilol and nitropaste to be discontinued Acute diastolic congestive heart failure exacerbation Ischemic cardiomyopathy History of CAD, status post CABG Sick sinus syndrome, status post pacemaker placement Hypertension Echocardiogram: EF 25 to 30%, diffuse hypokinesis to akinesis, moderate defect regurgitation, compared to 2018, left ventricular systolic function is mildly impaired -mildly elevated troponins on this admission -usually on Lasix 20 mg 4 times a week, 40 mg 3 times a week, was given IV Lasix on 07/21/2020 -07/22/2020 cardiology consult: "Continue current therapies as ordered with increasing topical nitrates for further hypertension control. Would resume oral regimen as previously ordered once cleared to take p.o. We will interrogate pacemaker given concerns regarding possible syncope as etiology of initial decline" -07/23/2020: patient taking more oral intake on 07/23/2020, will resume aspirin as oral form starting on 07/24/2020 rather than rectal, -low dose BID carvedilol started on 07/23/2020 and to be increased to 12.5 mg BID starting on evening of 07/24/2020, currently on scheduled oral Lasix Hypokalemia -patient has been getting daily potassium supplements because serum potassium around 3 for several days despite repletion, currently at goal on 07/25/2020 but this may change with more diuretics, monitor the electrolytes Acute Metabolic Encephalopathy, Metabolic History of CVA in the past -There is a right arm restriction but recent workup by head CT without evidence for acute stroke and no stroke as per recent neurology service assessment on 07/21/2020. History of seizure disorder -on Keppra Left acetabular fracture -Status post mechanical fall, patient unfortunately fell from his bed days before hospital presentation -Orthopedic service consulted and they recommend conservative management at this point -feet are in waffle boots, in recent past patient not appear to be able to lift left leg much likely from the fracture injury with repair history DVT as per records -Heparin SC q12 hours Melena -reported? -Recent outpatient EGD from last month just showed gastritis. -Hemoglobin stable at around 12 -Continue Protonix Chronic thrombocytopenia. Type 2 diabetes mellitus -well-controlled as of recent hemoglobin A1c of 6.09 June 2019 -sliding scale insulin as needed Colorectal CA -status post surgery status post chemoradiation in the past Resident of [facility] Admission and Anticipated Discharge Date Admission Date: July 17, 2020 Subjective Patient sleeping and I did not wish to disturb him from sleep on the physical exam. No acute events overnight but night time doctor was requested to give additional IV lasix because of volume status. I had previous discussed with patient and his family on 07/24/2020 that I did not wish to be aggressive on the Lasix because of recent hypokalemia. A chest X ray will be performed on 07/25/2020. The blood pressures are better with recent increase in carvedilol and nitropaste to be discontinued. Review of Systems Review of Systems: Other (sleeping) Physical Exam Constitutional: sleeping Eyes: sleeping ENMT: external ear and nose normal, oropharynx normal Neck: normal visual inspection Respiratory: normal respiratory effort Cardiovascular: Rate/Rhythm: regular rate Gastrointestinal (Abdomen): Inspection/Auscultation: normal bowel sounds Percussion/Palpation: abdomen soft Musculoskeletal: Head/Neck/Chest: normocephalic and head atraumatic Psychiatric: Orientation: cooperative Genitourinary: + penis abnormality (has buckner) Results & Data Results & [facility] ([facility]) Vital Signs (Past 12 Hours) Vital Signs Temp Pulse Resp BP Pulse Ox 07/24/20 22:39 36.9 C 79 18 133/70 99 07/24/20 21:08 89 157/78 H 07/24/20 21:00 84 171/84 H
[2020-07-25] MEDS: THIAMINE HCL 100 MG TAB PO SCH (08:51)
[2020-07-25] MEDS: carvediloL 12.5 MG TAB PO SCH ×2 (08:51→21:12)
[2020-07-25] MEDS: SACCHAROMYCES BOULARDII 250 MG CAP PO SCH ×2 (08:51→21:09)
[2020-07-25] MEDS: PANTOprazole 40 MG TAB PO SCH (08:51)
[2020-07-25] MEDS: FUROSEMIDE 20 MG TAB PO SCH (08:52)
[2020-07-25] MEDS: LOSARTAN POTASSIUM 50 MG TAB PO SCH (08:53)
[2020-07-25 08:54] LABS: BUN Creatinine Ratio 23.2 (10-20); Calcium 9.8 mg/dl (8.5-10.1); Est GFR (African American) 93.4; Est GFR (Non-African American) 80.6
[2020-07-25] MEDS: POTASSIUM CHLORIDE 20 MEQ/15 ML UDC PO SCH ×2 (08:54→17:36)
[2020-07-25] MEDS: INSULIN ASPART 100 UNITS/ML 3 ML PEN SC SCH ×4 (09:05→21:10)
[2020-07-25] MEDS: HEPARIN SOD 5,000 UNIT/0.5 ML VIAL SQ SCH ×2 (09:06→21:07)
[2020-07-25] MEDS: FLUTICASONE PROPIONATE NA SPR 16 GM BTL SCH (09:12)
--- NOTE | 2020-07-25 09:50 | XRay Report ---
SINGLE VIEW CHEST CLINICAL HISTORY: Follow-up airspace consolidation. FINDINGS: An AP, portable, upright chest radiograph is compared to study dated 07/20/2020 and correlat ed with chest CT dated 07/18/2020. The examination is degraded by portable technique and patient rotat ion. A 3-lead cardiac pacemaker is unchanged in position and partially obscures the left mid chest. The patient is status post midline sternotomy. The heart is enlarged and there is atherosclerotic concetta cification of the thoracic aorta. The pulmonary vasculature is noncongested. Left pleural effusion wi th left basilar consolidation is unchanged from previous. The right lung appears clear. No pneumothor ax is seen. The skeletal structures are osteopenic. There is chronic posttraumatic deformity of the r ight proximal humerus. Degenerative change is noted in the shoulders and thoracic spine. Cholecystect jorge luis clips are seen in the right upper quadrant. IMPRESSION: 1. Cardiomegaly and cardiac pacemaker. There is no radiographic evidence of congestive failure. Conge stive change has resolved as compared to 07/20/2020. 2. Left basilar consolidation and a left pleural effusion are unchanged from previous. Electronically signed by: Fredy Gould M.D. 07/25/2020 9:48 AM
[2020-07-25] MEDS: levETIRAcetam 500 MG in 0.9 % SODIUM CHLORIDE 100 ML IV SCH ×2 (11:56→22:03)
[2020-07-25] MEDS: cefTRIAXone SODIUM 1,000 MG in DEXTROSE 5% 50 ML IV SCH (12:24)
[2020-07-25] MEDS: MULTIVITAMIN TAB PO SCH (17:34)
[2020-07-25] MEDS: INSULIN GLARGINE SOLOSTAR 100 UNITS/ML 3 ML PEN SC SCH (21:08)
[2020-07-25] MEDS: ASPIRIN 81 MG ECTAB PO SCH (21:09)
[2020-07-25] MEDS: SERTRALINE HCL 50 MG TABLET PO SCH (21:10)
[2020-07-25] MEDS: ROSUVASTATIN CALCIUM 5 MG TAB PO SCH (21:12)
[2020-07-26 06:36] LABS: BUN Creatinine Ratio 24.8 (10-20); Calcium 9.7 mg/dl (8.5-10.1); Creatinine Clr Calc Pharmacy 72.7 ml/min; Est GFR (African American) 97.1; Est GFR (Non-African American) 83.8; Potassium 4.1 mmol/L (3.5-5.1)
[2020-07-26] MEDS: THIAMINE HCL 100 MG TAB PO SCH (08:53)
[2020-07-26] MEDS: PANTOprazole 40 MG TAB PO SCH (08:55)
[2020-07-26] MEDS: FUROSEMIDE 20 MG TAB PO SCH (08:55)
[2020-07-26] MEDS: LOSARTAN POTASSIUM 50 MG TAB PO SCH (08:55)
[2020-07-26] MEDS: FLUTICASONE PROPIONATE NA SPR 16 GM BTL SCH (08:56)
[2020-07-26] MEDS: SACCHAROMYCES BOULARDII 250 MG CAP PO SCH ×2 (08:56→20:33)
[2020-07-26] MEDS: carvediloL 12.5 MG TAB PO SCH (08:56)
[2020-07-26] MEDS: POTASSIUM CHLORIDE 20 MEQ/15 ML UDC PO SCH (08:58)
[2020-07-26] MEDS: HEPARIN SOD 5,000 UNIT/0.5 ML VIAL SQ SCH ×2 (08:59→20:47)
[2020-07-26] MEDS: INSULIN ASPART 100 UNITS/ML 3 ML PEN SC SCH ×4 (09:04→20:47)
--- NOTE | 2020-07-26 11:07 | Hospitalist Progress Note ---
Date of Service July 26, 2020 Assessment & Plan (1) Acute hypoxemic respiratory failure: as per ED notes on 07/17/2020: "This an 80-year-old male brought in from [facility] by EMS due to altered mental status. EMS reports that staff they reported to them patient had a syncopal episode yesterday, and then again this morning at 8 AM. They state patient was last seen in his usual state of health yesterday morning prior to the first syncopal event. They state on their arrival patient was tachypneic and had oxygen saturations of 80% on room air, they quickly placed him on a nonrebreather at 10 L/min and his oxygenation improved. Patient unable to provide any additional history. They state for them patient has been unresponsive despite eyes being open, will not otherwise communicate verbally, and no other response to painful stimuli. They also noted patient has been hypertensive and diaphoretic. They state they did check a blood sugar which was greater than 200 in route. Patient did seem to be incontinent of both urine and stool." Patient was treated for respiratory and cardiac issues, he was also found to have on this admission Left acetabular fracture, anterior to posterior column with superior roof involvement, minimal displacement which was likely due to recent fall at [facility] prior to hospital admission. Surgery was not recommended for the fracture and likely patient will return to [facility] on bedrest once medically ready for discharge from this hospital stay Acute hypoxic respiratory failure, multifactorial secondary to: Healthcare associated pneumonia with possible aspiration component Severe sepsis -80-year-old male with history of CAD/CABG, ischemic cardiomyopathy, sick sinus syndrome status post pacemaker, Diabetes type 2, hypertension, CVA, seizure, DVT, colorectal cancer, presenting with shortness of breath and hypoxia. (SIRS plus hypoxemia plus encephalopathy plus lactic acidosis secondary to above) -admission CT chest: Cardiomegaly and extensive coronary artery calcifications. Bilateral pleural effusions left greater than right with associated lower lobe atelectasis/consolidation. Subtle apical predominant groundglass pulmonary opacities, possibly representing pulmonary edema. An infectious/inflammatory processes could appear similar. 13 mm right upper lobe pulmonary nodule. Given the additional findings, this may be infectious/inflammatory. A one month follow-up chest CT is recommended. -Nasal MRSA swab: Negative COVID test: Negative Blood cultures Negative urine culture negative -on supplementary oxygen -07/21/2020: Speech therapy consulted-diet resumed today however during the afternoon, patient was noted to be coughing with initiation of diet, patient eventually passed swallowing tests on subsequent days -had been on empiric Zosyn plus doxycycline, since there is no underlying bacteremia source of infection found to date, transitioned to to ceftriaxone and doxycycline starting on 07/22/2020, -07/25/2020: Patient sleeping and I did not wish to disturb him from sleep on the physical exam. No acute events overnight but night time doctor was requested to give additional IV lasix because of volume status. I had previous discussed with patient and his family on 07/24/2020 that I did not wish to be aggressive on the Lasix because of recent hypokalemia. chest X ray performed on 07/25/2020 (There is no radiographic evidence of congestive failure. Congestive change has resolved as compared to 07/20/2020, Left basilar consolidation and a left pleural effusion are unchanged from previous.) The blood pressures are better with recent increase in carvedilol and nitropaste to be discontinued -07/26/2020: feet are in waffle boots, in recent past patient not appear to be able to move left leg much from the fracture injury without repair; patient seen able to wiggle the left foot toes on 07/26/2020. Patient does not express acute symptoms. Acute diastolic congestive heart failure exacerbation Ischemic cardiomyopathy History of CAD, status post CABG Sick sinus syndrome, status post pacemaker placement Hypertension Echocardiogram: EF 25 to 30%, diffuse hypokinesis to akinesis, moderate defect regurgitation, compared to 2018, left ventricular systolic function is mildly impaired -mildly elevated troponins on this admission -usually on Lasix 20 mg 4 times a week, 40 mg 3 times a week, was given IV Lasix on 07/21/2020 -07/22/2020 cardiology consult: "Continue current therapies as ordered with increasing topical nitrates for further hypertension control. Would resume oral regimen as previously ordered once cleared to take p.o. We will interrogate pacemaker given concerns regarding possible syncope as etiology of initial decline" -07/23/2020: patient taking more oral intake on 07/23/2020, resumed aspirin as oral form starting on 07/24/2020 rather than rectal -low dose BID carvedilol started on 07/23/2020 and to be increased to 12.5 mg BID starting on evening of 07/24/2020, nitropaste discontinued on 07/25/2020, on scheduled oral Lasix -on 07/26/2020 in crease the BID carvedilol to home dose 18.75 mg BID , also has been on home dose hydralazine 12.5 mg TID Hypokalemia -by 07/26/2020 the hypokalemia has been corrected. continue some scheduled potassium supplements while on Lasix Acute Metabolic Encephalopathy, Metabolic History of CVA in the past -There is a right arm restriction but recent workup by head CT without evidence for acute stroke and no stroke as per recent neurology service assessment on 07/21/2020. History of seizure disorder -on [facility] Left acetabular fracture -Status post mechanical fall, patient unfortunately fell from his bed days before hospital presentation -07/18/[address] Gonzalez: Left acetabular fracture, anterior to posterior column with superior roof involvement, minimal displacement; had recommended nonsurgical care -feet are in waffle boots, in recent past patient not appear to be able to move left leg much from the fracture injury without repair; patient seen able to wiggle the left foot toes on 07/26/2020 -Surgery was not recommended for the fracture and likely patient will return [facility] medically ready for discharge from this hospital stay history DVT as per records -Heparin SC q12 hours Melena -reported? -Recent outpatient EGD from last month just showed gastritis. -Hemoglobin stable -Continue Protonix Chronic thrombocytopenia. Type 2 diabetes mellitus -well-controlled as of recent hemoglobin A1c of 6.09 June 2019 -sliding scale insulin as needed Colorectal CA -status post surgery status post chemoradiation in the past Resident of [facility] DNR/DNI as per , Ms. Sylvie Quan [phone] / [phone]. Admission and Anticipated Discharge Date Admission Date: July 17, 2020 Subjective feet are in waffle boots, in recent past patient not appear to be able to move left leg much from the fracture injury without repair; patient seen able to wiggle the left foot toes on 07/26/2020. Patient does not express acute symptoms. Review of Systems Review of Systems: All systems reviewed & are unremarkable except as noted in Subjective Physical Exam Constitutional: cooperative Eyes: PERRL, conjunctivae normal, anicteric sclerae ENMT: external ear and nose normal, oropharynx normal Neck: normal visual inspection Respiratory: normal respiratory effort, lungs clear to auscultation Cardiovascular: Rate/Rhythm: regular rate Gastrointestinal (Abdomen): normal bowel sounds, soft, nontender, no hepatosplenomegaly Inspection/Auscultation: normal bowel sounds Percussion/Palpation: abdomen soft Musculoskeletal: Head/Neck/Chest: normocephalic and head atraumatic Neurologic: awake (soft spoken, answers questions, and cooperative) Psychiatric: Orientation: cooperative Genitourinary: + penis abnormality (has buckner) Results & Data Results & Data ([facility]) Vital Signs (Past 12 Hours) Vital Signs Temp Pulse Resp BP Pulse Ox 07/26/20 07:43 36.6 C 76 16 171/89 H 96 07/25/20 23:46 36.9 C 70 15 159/76 H 94
[2020-07-26] MEDS: levETIRAcetam 500 MG in 0.9 % SODIUM CHLORIDE 100 ML IV SCH ×2 (11:59→22:02)
[2020-07-26] MEDS: MULTIVITAMIN TAB PO SCH (16:50)
[2020-07-26] MEDS: carvediloL 6.25 MG TAB PO SCH (20:32)
[2020-07-26] MEDS: ASPIRIN 81 MG ECTAB PO SCH (20:33)
[2020-07-26] MEDS: ROSUVASTATIN CALCIUM 5 MG TAB PO SCH (20:33)
[2020-07-26] MEDS: SERTRALINE HCL 50 MG TABLET PO SCH (20:34)
[2020-07-26] MEDS: INSULIN GLARGINE SOLOSTAR 100 UNITS/ML 3 ML PEN SC SCH (20:48)
--- NOTE | 2020-07-27 08:26 | XRay Report ---
XR chest 1V portable HISTORY: tachypnea COMPARISON: Chest 07/25/2020. FINDINGS: No pneumothorax. Small left pleural effusion and left basilar airspace opacity persist. No evidence for pulmonary edema. The right lung is clear. There is a left-sided pacemaker/defibrillator. Poststernotomy changes are noted. IMPRESSION: No change in the small left pleural effusion and left basilar airspace opacity. ACT 112: Negative or not required by law. Electronically signed by: Javon Suarez M.D. 07/27/2020 8:25 AM
[2020-07-27] MEDS: carvediloL 6.25 MG TAB PO SCH ×2 (08:57→20:23)
[2020-07-27] MEDS: SACCHAROMYCES BOULARDII 250 MG CAP PO SCH ×2 (08:57→20:22)
[2020-07-27] MEDS: PANTOprazole 40 MG TAB PO SCH (08:58)
[2020-07-27] MEDS: THIAMINE HCL 100 MG TAB PO SCH (08:58)
[2020-07-27] MEDS: LOSARTAN POTASSIUM 50 MG TAB PO SCH (08:58)
[2020-07-27] MEDS: FUROSEMIDE 40 MG TAB PO SCH (08:58)
[2020-07-27] MEDS: INSULIN ASPART 100 UNITS/ML 3 ML PEN SC SCH ×4 (09:31→20:47)
[2020-07-27] MEDS: HEPARIN SOD 5,000 UNIT/0.5 ML VIAL SQ SCH ×2 (09:32→20:46)
[2020-07-27] MEDS: FLUTICASONE PROPIONATE NA SPR 16 GM BTL SCH (09:32)
--- NOTE | 2020-07-27 09:32 | Hospitalist Progress Note ---
Date of Service July 27, 2020 Assessment & Plan (1) Acute hypoxemic respiratory failure: as per ED notes on 07/17/2020: "This an 80-year-old male brought in from [facility] by EMS due to altered mental status. EMS reports that staff they reported to them patient had a syncopal episode yesterday, and then again this morning at 8 AM. They state patient was last seen in his usual state of health yesterday morning prior to the first syncopal event. They state on their arrival patient was tachypneic and had oxygen saturations of 80% on room air, they quickly placed him on a nonrebreather at 10 L/min and his oxygenation improved. Patient unable to provide any additional history. They state for them patient has been unresponsive despite eyes being open, will not otherwise communicate verbally, and no other response to painful stimuli. They also noted patient has been hypertensive and diaphoretic. They state they did check a blood sugar which was greater than 200 in route. Patient did seem to be incontinent of both urine and stool." Patient was treated for respiratory and cardiac issues, he was also found to have on this admission Left acetabular fracture, anterior to posterior column with superior roof involvement, minimal displacement which was likely due to recent fall at [facility] prior to hospital admission. Surgery was not recommended for the fracture and likely patient will return to [facility] on bedrest once medically ready for discharge from this hospital stay Acute hypoxic respiratory failure, multifactorial secondary to: Healthcare associated pneumonia with possible aspiration component Severe sepsis -80-year-old male with history of CAD/CABG, ischemic cardiomyopathy, sick sinus syndrome status post pacemaker, Diabetes type 2, hypertension, CVA, seizure, DVT, colorectal cancer, presenting with shortness of breath and hypoxia. (SIRS plus hypoxemia plus encephalopathy plus lactic acidosis secondary to above) -admission CT chest: Cardiomegaly and extensive coronary artery calcifications. Bilateral pleural effusions left greater than right with associated lower lobe atelectasis/consolidation. Subtle apical predominant groundglass pulmonary opacities, possibly representing pulmonary edema. An infectious/inflammatory processes could appear similar. 13 mm right upper lobe pulmonary nodule. Given the additional findings, this may be infectious/inflammatory. A one month follow-up chest CT is recommended. -Nasal MRSA swab: Negative COVID test: Negative Blood cultures Negative urine culture negative -on supplementary oxygen -07/21/2020: Speech therapy consulted-diet resumed today however during the afternoon, patient was noted to be coughing with initiation of diet, patient eventually passed swallowing tests on subsequent days -had been on empiric Zosyn plus doxycycline, since there is no underlying bacteremia source of infection found to date, transitioned to to ceftriaxone and doxycycline starting on 07/22/2020, -07/25/2020: Patient sleeping and I did not wish to disturb him from sleep on the physical exam. No acute events overnight but night time doctor was requested to give additional IV lasix because of volume status. I had previous discussed with patient and his family on 07/24/2020 that I did not wish to be aggressive on the Lasix because of recent hypokalemia. chest X ray performed on 07/25/2020 (There is no radiographic evidence of congestive failure. Congestive change has resolved as compared to 07/20/2020, Left basilar consolidation and a left pleural effusion are unchanged from previous.) The blood pressures are better with recent increase in carvedilol and nitropaste to be discontinued -07/26/2020: feet are in waffle boots, in recent past patient not appear to be able to move left leg much from the fracture injury without repair; patient seen able to wiggle the left foot toes on 07/26/2020. Patient does not express acute symptoms. all IV antibiotics discontinued by -07/27/2020: during the nocturnalist shift, patient was noted to have episode of tachypnea and a tachycardia but this self-resolved without acute intervention. no acute changes in the Chest X ray. Patient eating breakfast on room air when assessed by daytime hospitalist and no new crackles on lung exam. No antibiotics needed at this time Acute systolic congestive heart failure exacerbation Ischemic cardiomyopathy History of CAD, status post CABG Sick sinus syndrome, status post pacemaker placement Hypertension Echocardiogram: EF 25 to 30%, diffuse hypokinesis to akinesis, moderate defect regurgitation, compared to 2018, left ventricular systolic function is mildly impaired -mildly elevated troponins on this admission -usually on Lasix 20 mg 4 times a week, 40 mg 3 times a week, was given IV Lasix on 07/21/2020 -07/22/2020 cardiology consult: "Continue current therapies as ordered with increasing topical nitrates for further hypertension control. Would resume oral regimen as previously ordered once cleared to take p.o. We will interrogate pacemaker given concerns regarding possible syncope as etiology of initial decline" -07/23/2020: patient taking more oral intake on 07/23/2020, resumed aspirin as oral form starting on 07/24/2020 rather than rectal -low dose BID carvedilol started on 07/23/2020 and to be increased to 12.5 mg BID starting on evening of 07/24/2020, nitropaste discontinued on 07/25/2020, on scheduled oral Lasix -on 07/26/2020 in crease the BID carvedilol to home dose 18.75 mg BID , also has been on home dose hydralazine 12.5 mg TID Hypokalemia -by 07/26/2020 the hypokalemia has been corrected. continue some scheduled potassium supplements while on Lasix Acute Metabolic Encephalopathy, Metabolic History of CVA in the past -There is a right arm restriction but recent workup by head CT without evidence for acute stroke and no stroke as per recent neurology service assessment on 07/21/2020. History of seizure disorder -on [facility] Left acetabular fracture -Status post mechanical fall, patient unfortunately fell from his bed days before hospital presentation -07/18/[address] Gonzalez: Left acetabular fracture, anterior to post erior column with superior roof involvement, minimal displacement; had recommended nonsurgical care -feet are in waffle boots, in recent past patient not appear to be able to move left leg much from the fracture injury without repair; patient seen able to wiggle the left foot toes on 07/26/2020 -Surgery was not recommended for the fracture and likely patient will return to [facility] on bedrest once medically ready for discharge from this hospital stay, discussed with orthopedics and that patient likely cannot bear weight on left leg for 6 weeks history DVT as per records -Heparin SC q12 hours while inpatient Melena -reported? -Recent outpatient EGD from last month just showed gastritis. -Hemoglobin stable -Continue Protonix Chronic thrombocytopenia. Type 2 diabetes mellitus -well-controlled as of recent hemoglobin A1c of 6.09 June 2019 -sliding scale insulin as needed Colorectal CA -status post surgery status post chemoradiation in the past Resident of [facility] DNR/DNI as per , Ms. Mercer Kadeem [phone] / [phone]. Admission and Anticipated Discharge Date Admission Date: July 17, 2020 Subjective -07/27/2020: during the nocturnalist shift, patient was noted to have episode of tachypnea and a tachycardia but this self-resolved without acute intervention. no acute changes in the Chest X ray. Patient eating breakfast on room air when assessed by daytime hospitalist and no new crackles on lung exam. No antibiotics needed at this time. no acute pain. no other complaints as per patient Review of Systems Review of Systems: All systems reviewed & are unremarkable except as noted in Subjective Physical Exam Constitutional: cooperative Eyes: PERRL, conjunctivae normal, anicteric sclerae ENMT: external ear and nose normal, oropharynx normal Neck: normal visual inspection Respiratory: normal respiratory effort, lungs clear to auscultation Cardiovascular: Rate/Rhythm: regular rate Gastrointestinal (Abdomen): normal bowel sounds, soft, nontender, no hepatosplenomegaly Inspection/Auscultation: normal bowel sounds Percussion/Palpation: abdomen soft Musculoskeletal: Head/Neck/Chest: normocephalic and head atraumatic Neurologic: awake (soft spoken, answers questions, and cooperative) Psychiatric: Orientation: cooperative Genitourinary: + penis abnormality (has buckner) Results & Data Results & Data ([facility]) Vital Signs (Past 12 Hours) Vital Signs Temp Pulse Resp BP Pulse Ox 07/27/20 06:58 36.8 C 80 16 150/80 H 95 07/26/20 23:26 37.0 C 105 H 42 H 169/94 H 94 07/26/20 22:30 174/93 H
[2020-07-27] MEDS ORDERED: POLYETHYLENE (MIRALAX) 17 GM PACK PO PRN (09:43)
[2020-07-27] MEDS: SENNA 8.6 MG TAB PO SCH (11:06)
[2020-07-27] MEDS: DOCUSATE SODIUM SYRUP 100 MG/10 ML UDC PO SCH ×2 (11:07→20:24)
[2020-07-27] MEDS: levETIRAcetam 500 MG in 0.9 % SODIUM CHLORIDE 100 ML IV SCH ×2 (11:10→23:00)
[2020-07-27] MEDS: MULTIVITAMIN TAB PO SCH (18:00)
[2020-07-27] MEDS: SERTRALINE HCL 50 MG TABLET PO SCH (20:22)
[2020-07-27] MEDS: ASPIRIN 81 MG ECTAB PO SCH (20:23)
[2020-07-27] MEDS: ROSUVASTATIN CALCIUM 5 MG TAB PO SCH (20:23)
[2020-07-27] MEDS: INSULIN GLARGINE SOLOSTAR 100 UNITS/ML 3 ML PEN SC SCH (20:46)
[2020-07-28] MEDS: FUROSEMIDE 20 MG TAB PO SCH (07:59)
[2020-07-28] MEDS: FLUTICASONE PROPIONATE NA SPR 16 GM BTL SCH (07:59)
[2020-07-28] MEDS: PANTOprazole 40 MG TAB PO SCH (07:59)
[2020-07-28] MEDS: SACCHAROMYCES BOULARDII 250 MG CAP PO SCH ×3 (07:59→23:27)
[2020-07-28] MEDS: THIAMINE HCL 100 MG TAB PO SCH (07:59)
[2020-07-28] MEDS: DOCUSATE SODIUM SYRUP 100 MG/10 ML UDC PO SCH ×3 (07:59→23:27)
[2020-07-28] MEDS: carvediloL 6.25 MG TAB PO SCH ×3 (08:07→23:28)
[2020-07-28] MEDS: LOSARTAN POTASSIUM 50 MG TAB PO SCH (08:08)
[2020-07-28] MEDS: SENNA 8.6 MG TAB PO SCH (08:52)
[2020-07-28] MEDS: INSULIN ASPART 100 UNITS/ML 3 ML PEN SC SCH ×4 (08:57→22:25)
[2020-07-28] MEDS: HEPARIN SOD 5,000 UNIT/0.5 ML VIAL SQ SCH ×2 (08:57→22:24)
--- NOTE | 2020-07-28 08:59 | Hospitalist Progress Note ---
Date of Service July 28, 2020 Assessment & Plan (1) Acute hypoxemic respiratory failure: as per ED notes on 07/17/2020: "This an 80-year-old male brought in from [facility] by EMS due to altered mental status. EMS reports that staff they reported to them patient had a syncopal episode yesterday, and then again this morning at 8 AM. They state patient was last seen in his usual state of health yesterday morning prior to the first syncopal event. They state on their arrival patient was tachypneic and had oxygen saturations of 80% on room air, they quickly placed him on a nonrebreather at 10 L/min and his oxygenation improved. Patient unable to provide any additional history. They state for them patient has been unresponsive despite eyes being open, will not otherwise communicate verbally, and no other response to painful stimuli. They also noted patient has been hypertensive and diaphoretic. They state they did check a blood sugar which was greater than 200 in route. Patient did seem to be incontinent of both urine and stool." Patient was treated for respiratory and cardiac issues, he was also found to have on this admission Left acetabular fracture, anterior to posterior column with superior roof involvement, minimal displacement which was likely due to recent fall at [facility] prior to hospital admission. Surgery was not recommended for the fracture and likely patient will return to [facility] on bedrest once medically ready for discharge from this hospital stay Acute hypoxic respiratory failure, multifactorial secondary to: Healthcare associated pneumonia with possible aspiration component Severe sepsis -80-year-old male with history of CAD/CABG, ischemic cardiomyopathy, sick sinus syndrome status post pacemaker, Diabetes type 2, hypertension, CVA, seizure, DVT, colorectal cancer, presenting with shortness of breath and hypoxia. (SIRS plus hypoxemia plus encephalopathy plus lactic acidosis secondary to above) -admission CT chest: Cardiomegaly and extensive coronary artery calcifications. Bilateral pleural effusions left greater than right with associated lower lobe atelectasis/consolidation. Subtle apical predominant groundglass pulmonary opacities, possibly representing pulmonary edema. An infectious/inflammatory processes could appear similar. 13 mm right upper lobe pulmonary nodule. Given the additional findings, this may be infectious/inflammatory. A one month follow-up chest CT is recommended. -Nasal MRSA swab: Negative COVID test: Negative Blood cultures Negative urine culture negative -on supplementary oxygen -07/21/2020: Speech therapy consulted-diet resumed today however during the afternoon, patient was noted to be coughing with initiation of diet, patient eventually passed swallowing tests on subsequent days -had been on empiric Zosyn plus doxycycline, since there is no underlying bacteremia source of infection found to date, transitioned to to ceftriaxone and doxycycline starting on 07/22/2020, -07/25/2020: Patient sleeping and I did not wish to disturb him from sleep on the physical exam. No acute events overnight but night time doctor was requested to give additional IV lasix because of volume status. I had previous discussed with patient and his family on 07/24/2020 that I did not wish to be aggressive on the Lasix because of recent hypokalemia. chest X ray performed on 07/25/2020 (There is no radiographic evidence of congestive failure. Congestive change has resolved as compared to 07/20/2020, Left basilar consolidation and a left pleural effusion are unchanged from previous.) The blood pressures are better with recent increase in carvedilol and nitropaste to be discontinued -07/26/2020: feet are in waffle boots, in recent past patient not appear to be able to move left leg much from the fracture injury without repair; patient seen able to wiggle the left foot toes on 07/26/2020. Patient does not express acute symptoms. all IV antibiotics discontinued by -07/27/2020: during the nocturnalist shift, patient was noted to have episode of tachypnea and a tachycardia but this self-resolved without acute intervention. no acute changes in the Chest X ray. Patient eating breakfast on room air when assessed by daytime hospitalist and no new crackles on lung exam. No antibiotics needed at this time Acute systolic congestive heart failure exacerbation Ischemic cardiomyopathy History of CAD, status post CABG Sick sinus syndrome, status post pacemaker placement Hypertension Echocardiogram: EF 25 to 30%, diffuse hypokinesis to akinesis, moderate defect regurgitation, compared to 2018, left ventricular systolic function is mildly impaired -mildly elevated troponins on this admission -usually on Lasix 20 mg 4 times a week, 40 mg 3 times a week, was given IV Lasix on 07/21/2020 -07/22/2020 cardiology consult: "Continue current therapies as ordered with increasing topical nitrates for further hypertension control. Would resume oral regimen as previously ordered once cleared to take p.o. We will interrogate pacemaker given concerns regarding possible syncope as etiology of initial decline" -07/23/2020: patient taking more oral intake on 07/23/2020, resumed aspirin as oral form starting on 07/24/2020 rather than rectal -low dose BID carvedilol started on 07/23/2020 and to be increased to 12.5 mg BID starting on evening of 07/24/2020, nitropaste discontinued on 07/25/2020, on scheduled oral Lasix -on 07/26/2020 in crease the BID carvedilol to home dose 18.75 mg BID , also has been on home dose hydralazine 12.5 mg TID Hypokalemia -by 07/26/2020 the hypokalemia has been corrected. continue some scheduled potassium supplements while on Lasix Acute Metabolic Encephalopathy, Metabolic History of CVA in the past -There is a right arm restriction but recent workup by head CT without evidence for acute stroke and no stroke as per recent neurology service assessment on 07/21/2020. History of seizure disorder -on [facility] Type 2 diabetes mellitus -well-controlled as of recent hemoglobin A1c of 6.09 June 2019 -sliding scale insulin as needed Left acetabular fracture -Status post mechanical fall, patient unfortunately fell from his bed days before hospital presentation -07/18/[address] Gonzalez: Left acetabular fracture, anterior to posterior column with superior roof involvement, minimal displacement; had recommended nonsurgical care -feet are in waffle boots, in recent past patient not appear to be able to move left leg much from the fracture injury without repair; patient seen able to wiggle the left foot toes on 07/26/2020 -Surgery was not recommended for the fracture and likely [facility] for discharge from this hospital stay, discussed with orthopedics and that patient likely cannot bear weight on left leg for 6 weeks history DVT as per records -Heparin SC q12 hours while inpatient Chronic thrombocytopenia. Melena -reported? -Recent outpatient EGD from last month just showed gastritis. -Hemoglobin stable -Continue Protonix Constipation -no bowel movement since 07/23/2020, continue bowel regimen -KUB ordered on 07/28/2020 Colorectal CA -status post surgery status post chemoradiation in the past Resident of [facility] DNR/DNI as per , Ms. Sylvie Downingn [phone] / [phone]. Admission and Anticipated Discharge Date Admission Date: July 17, 2020 Subjective Patient has not had bowel movement since 07/23/2020. Patient seen and examined with nurse. Patient on room air. He is awake and cooperative but he is poor historian. He is not in acute distress. When asked if he has pain, he says yes but cannot point and say where the pain is. Abdomen exam is benign on palpation but patient cannot say whether pain at different parts of the belly. KUB ordered. Continue bowel regimen Review of Systems Review of Systems: Unobtainable due to cognitive status Physical Exam Constitutional: cooperative Eyes: PERRL, conjunctivae normal, anicteric sclerae ENMT: external ear and nose normal, oropharynx normal Neck: normal visual inspection Respiratory: normal respiratory effort, lungs clear to auscultation normal respiratory effort Cardiovascular: Rate/Rhythm: regular rate Gastrointestinal (Abdomen): normal bowel sounds, soft, nontender, no hepatosplenomegaly Inspection/Auscultation: normal bowel sounds Percussion/Palpation: abdomen soft Musculoskeletal: Head/Neck/Chest: normocephalic and head atraumatic Neurologic: awake (soft spoken, answers questions, and cooperative) Psychiatric: Orientation: cooperative Genitourinary: + penis abnormality (has buckner) Results & Data Results & Data ([facility]) Vital Signs (Past 12 Hours) Vital Signs Temp Pulse Resp BP Pulse Ox 07/28/20 08:00 36.5 C 75 17 145/66 H 96 07/27/20 23:18 36.9 C 69 20 98/61 L 94
--- NOTE | 2020-07-28 09:55 | XRay Report ---
KUB HISTORY: constipation COMPARISON: Chest and abdominal series 06/15/2016. FINDINGS: No dilated loops of bowel to suggest an obstruction. Internal fixation of an old, healed ri ght hip fracture. Prior cholecystectomy. Moderate well-formed stool seen within the colon. This has i mproved. There are poststernotomy changes and a left-sided pacemaker/defibrillator. Small left pleura l effusion. No renal calculi. No ureteral calculi. No pneumoperitoneum or pneumatosis. IMPRESSION: 1. Moderate well-formed stool within the colon. 2. No evidence for bowel obstruction. 3. Small left pleural effusion. ACT 112: Negative or not required by law. Electronically signed by: Javon Suarez M.D. 07/28/2020 9:54 AM
[2020-07-28] MEDS: levETIRAcetam 500 MG in 0.9 % SODIUM CHLORIDE 100 ML IV SCH (11:13)
[2020-07-28] MEDS: POTASSIUM CHLORIDE 10 MEQ TABCR PO SCH ×2 (11:18→11:52)
[2020-07-28] MEDS: POTASSIUM CHLORIDE 20 MEQ/15 ML UDC PO SCH (12:10)
[2020-07-28] MEDS: MULTIVITAMIN TAB PO SCH (15:58)
[2020-07-28] MEDS: ROSUVASTATIN CALCIUM 5 MG TAB PO SCH ×2 (22:22→23:28)
[2020-07-28] MEDS: ASPIRIN 81 MG ECTAB PO SCH ×2 (22:23→23:27)
[2020-07-28] MEDS: INSULIN GLARGINE SOLOSTAR 100 UNITS/ML 3 ML PEN SC SCH (22:24)
[2020-07-28] MEDS: SERTRALINE HCL 50 MG TABLET PO SCH ×2 (22:26→23:26)
[2020-07-28] MEDS: levETIRAcetam 500 MG TAB PO SCH ×2 (22:33→23:28)
[2020-07-29 01:56] LABS: Basophils # (auto) 0.01 K/uL (0-0.2); Basophils % (auto) 0.1 %; Eosinophils # (auto) 0.12 K/uL (0-0.5); Eosinophils % (auto) 1.6 %; Hematocrit (blood only) 31.9 % (42-52); Hemoglobin 10.3 g/dL (14.0-18.0); Immature Granulocytes # (auto) 0.12 K/uL (0.00-0.02); Immature Granulocytes % (auto) 1.6 %; Lymphocytes # (auto) 1.38 K/uL (1.2-3.4); Lymphocytes % (auto) 18.8 %; Mean Corpuscular Hgb Conc 32.3 g/dL (32-36); Mean Corpuscular Volume 96.1 fL (80-100); Monocytes # (auto) 0.52 K/uL (0.11-0.59); Monocytes % (auto) 7.1 %; Neutrophils % (auto) 70.8 %; Platelet Count 167 K/uL (130-400); RDW Coefficient of Variation 14.7 % (11.5-14.5); RDW Standard Deviation 51.3 fL (36.4-46.3); Red Blood Count 3.32 M/uL (4.7-6.1); White Blood Count 7.35 K/uL (4.8-10.8)
[2020-07-29 02:16] LABS: Albumin Level 2.6 gm/dl (3.4-5.0); Calcium 9.1 mg/dl (8.5-10.1); Creatinine Clr Calc Pharmacy 56.7 ml/min; Est GFR (African American) 77.7; Magnesium 1.8 mg/dl (1.8-2.4); Potassium 3.9 mmol/L (3.5-5.1)
[2020-07-29 02:19] LABS: Albumin Globulin Ratio 0.7 (0.9-2); Bilirubin,Total 0.5 mg/dl (0.2-1); Globulin 3.6 gm/dl (2.5-4.0); Total Protein 6.2 gm/dl (6.4-8.2)
[2020-07-29] MEDS: SACCHAROMYCES BOULARDII 250 MG CAP PO SCH ×2 (09:06→21:07)
[2020-07-29] MEDS: carvediloL 6.25 MG TAB PO SCH ×2 (09:06→21:04)
[2020-07-29] MEDS: THIAMINE HCL 100 MG TAB PO SCH (09:07)
[2020-07-29] MEDS: levETIRAcetam 500 MG TAB PO SCH ×2 (09:07→21:08)
[2020-07-29] MEDS: SENNA 8.6 MG TAB PO SCH (09:07)
[2020-07-29] MEDS: FUROSEMIDE 40 MG TAB PO SCH (09:08)
[2020-07-29] MEDS: LOSARTAN POTASSIUM 50 MG TAB PO SCH (09:08)
[2020-07-29] MEDS: PANTOprazole 40 MG TAB PO SCH (09:08)
[2020-07-29] MEDS: FLUTICASONE PROPIONATE NA SPR 16 GM BTL SCH (09:14)
[2020-07-29] MEDS: POTASSIUM CHLORIDE 20 MEQ/15 ML UDC PO SCH (09:14)
[2020-07-29] MEDS: DOCUSATE SODIUM SYRUP 100 MG/10 ML UDC PO SCH ×2 (09:14→21:07)
[2020-07-29] MEDS: HEPARIN SOD 5,000 UNIT/0.5 ML VIAL SQ SCH ×2 (09:17→21:08)
[2020-07-29] MEDS: INSULIN ASPART 100 UNITS/ML 3 ML PEN SC SCH ×4 (10:09→21:13)
[2020-07-29] MEDS: MULTIVITAMIN TAB PO SCH (17:08)
--- NOTE | 2020-07-29 17:51 | Hospitalist Progress Note ---
Date of Service July 29, 2020 Assessment & Plan (1) Acute hypoxemic respiratory failure: (1) Acute hypoxemic respiratory failure: as per ED notes on 07/17/2020: "This an 80-year-old male brought in from [facility] by EMS due to altered mental status. EMS reports that staff jeff calvillo reported to them patient had a syncopal episode yesterday, and then again this morning at 8 AM. They state patient was last seen in his usual state of health yesterday morning prior to the first syncopal event. They state on their arrival patient was tachypneic and had oxygen saturations of 80% on room air, they quickly placed him on a nonrebreather at 10 L/min and his oxygenation improved. Patient unable to provide any additional history. They state for them patient has been unresponsive despite eyes being open, will not otherwise communicate verbally, and no other response to painful stimuli. They also noted patient has been hypertensive and diaphoretic. They state they did check a blood sugar which was greater than 200 in route. Patient did seem to be incontinent of both urine and stool." Patient was treated for respiratory and cardiac issues, he was also found to have on this admission Left acetabular fracture, anterior to posterior column with superior roof involvement, minimal displacement which was likely due to recent fall at [facility] prior to hospital admission. Surgery was not recommended for the fracture and likely patient will return to [facility] on bedrest once medically ready for discharge from this hospital stay Acute hypoxic respiratory failure, multifactorial secondary to: Healthcare associated pneumonia with possible aspiration component Severe sepsis -80-year-old male with history of CAD/CABG, ischemic cardiomyopathy, sick sinus syndrome status post pacemaker, Diabetes type 2, hypertension, CVA, seizure, DVT, colorectal cancer, presenting with shortness of breath and hypoxia. (SIRS plus hypoxemia plus encephalopathy plus lactic acidosis secondary to above) -admission CT chest: Cardiomegaly and extensive coronary artery calcifications. Bilateral pleural effusions left greater than right with associated lower lobe atelectasis/consolidation. Subtle apical predominant groundglass pulmonary opacities, possibly representing pulmonary edema. An infectious/inflammatory processes could appear similar. 13 mm right upper lobe pulmonary nodule. Given the additional findings, this may be infectious/inflammatory. A one month follow-up chest CT is recommended. -Nasal MRSA swab: Negative COVID test: Negative Blood cultures Negative urine culture negative -on supplementary oxygen --Completed course of an IV antibiotics Weaned off oxygen Acute systolic congestive heart failure exacerbation Ischemic cardiomyopathy History of CAD, status post CABG Sick sinus syndrome, status post pacemaker placement Hypertension Per Dr. Josias Mars's notes: Echocardiogram: EF 25 to 30%, diffuse hypokinesis to akinesis, moderate defect regurgitation, compared to 2018, left ventricular systolic function is mildly impaired -mildly elevated troponins on this admission -usually on Lasix 20 mg 4 times a week, 40 mg 3 times a week, was given IV Lasix on 07/21/2020 -07/22/2020 cardiology consult: "Continue current therapies as ordered with increasing topical nitrates for further hypertension control. Would resume oral regimen as previously ordered once cleared to take p.o. We will interrogate fredy chow given concerns regarding possible syncope as etiology of initial decline" -07/23/2020: patient taking more oral intake on 07/23/2020, resumed aspirin as oral form starting on 07/24/2020 rather than rectal -low dose BID carvedilol started on 07/23/2020 and to be increased to 12.5 mg BID starting on evening of 07/24/2020, nitropaste discontinued on 07/25/2020, on scheduled oral Lasix -on 07/26/2020 in crease the BID carvedilol to home dose 18.75 mg BID , also has been on home dose hydralazine 12.5 mg TID --> Usual Lasix p.o. presumed, stable so far Stable as well on usual cardiac medications Euvolemic at this time Hypokalemia -Resolved Acute Metabolic Encephalopathy, Metabolic History of CVA in the past -There is a right arm restriction but recent workup by head CT without evidence for acute stroke and no stroke as per recent neurology service assessment on 07/21/2020. -Back to baseline mental status History of seizure disorder -on [facility] Type 2 diabetes mellitus -well-controlled as of recent hemoglobin A1c of 6.09 June 2019 -sliding scale insulin as needed Left acetabular fracture -Status post mechanical fall, patient unfortunately fell from his bed days before hospital presentation -07/18/[address] Gonzalez: Left acetabular fracture, anterior to posterior column with superior roof involvement, minimal displacement; had recommended nonsurgical care -feet are in waffle boots, in recent past patient not appear to be able to move left leg much from the fracture injury without repair; patient seen able to wiggle the left foot toes on 07/26/2020 -Surgery was not recommended for the fracture and likely patient will return to [facility] on bedrest once medically ready for discharge from this hospital stay, discussed with orthopedics and that patient likely cannot bear weight on left leg for 6 weeks history DVT as per records -Heparin SC q12 hours while inpatient Chronic thrombocytopenia. Melena -reported? -Recent outpatient EGD from last month just showed gastritis. -Hemoglobin stable -Continue Protonix Constipation -Resolved Colorectal CA -status post surgery status post chemoradiation in the past Resident of [facility] DNR/DNI as per , Ms. Sylvie Quan [phone] / [phone]. Disposition Anticipate discharge to [facility] tomorrow when accepted Admission and Anticipated Discharge Date Admission Date: July 17, 2020 Subjective Follow-up for acute hypoxic respiratory failure secondary to CHF exacerbation, pneumonia Seen resting in bed, sleeping but easily awakened Oriented to person and place, answers most questions appropriately Appetite is good per staff nurse midwife Positive BMs overnight Chest pain overnight, but EKG is unremarkable, troponins x2 are negative On exam, patient denies shortness of breath, chest pain, palpitations, dizziness, nausea vomiting Denies other symptoms Review of Systems Review of Systems: All systems reviewed & are unremarkable except as noted in HPI & below Physical Exam Physical Exam: General- oriented x 2, not in distress, speaks in sentences with no effort or accessory muscle use Eyes- anicteric Neck- no JVD Lungs- clear breath sounds bilaterally, no rales/wheezes Heart- normal rate, regular rhythm; no murmurs Abdomen- normal bowel sounds, nondistended, soft, nontender Extremities- no pretibial edema, no calf tenderness Neuro- alert, oriented x 2; no gross focal neurologic deficits Skin- warm & dry Results & Data Results & Data ([facility]) Vital Signs (Past 12 Hours) Vital Signs Temp Pulse Resp BP Pulse Ox 07/29/20 15:00 36.2 C L 67 16 113/56 L 96 07/29/20 12:26 63 135/72 94 07/29/20 07:06 36.6 C 72 17 159/84 H 95 Laboratory Results Laboratory Results - last 24 hr 07/28/20 07/28/20 07/29/20 19:55 21:04 01:37 WBC RBC Hgb Hct MCV MCH MCHC RDW Std Deviation RDW Coeff of Arabella Plt Count MPV Immature Gran % (Auto) Neut % (Auto) Lymph % (Auto) Putnam % (Auto) Eos % (Auto) Baso % (Auto) Neut # (Auto) Lymph # (Auto) Putnam # (Auto) Eos # (Auto) Baso # (Auto) Immature Gran # (Auto) Sodium 139 Potassium 3.9 Chloride 101 Carbon Dioxide 33 H Anion Gap 5.0 BUN 26 H Creatinine 1.04 Est Cr Clr Drug Dosing 56.7 Est GFR ( Amer) 77.7 Est GFR (Non-Af Amer) 67.0 BUN/Creatinine Ratio 25.0 H Glucose 147 H POC Glucose 184 H Calcium 9.1 Magnesium 1.8 Total Bilirubin 0.5 AST 23 ALT 27 Alkaline Phosphatase 121 H Troponin I < 0.015 Total Protein 6.2 L Albumin 2.6 L Globulin 3.6 Albumin/Globulin Ratio 0.7 L 07/29/20 07/29/20 07/29/20 01:37 01:37 07:54 WBC 7.35 RBC 3.32 L Hgb 10.3 L Hct 31.9 L MCV 96.1 MCH 31.0 MCHC 32.3 RDW Std Deviation 51.3 H RDW Coeff of Arabella 14.7 H Plt Count 167 MPV 11.0 H Immature Gran % (Auto) 1.6 Neut % (Auto) 70.8 Lymph % (Auto) 18.8 Putnam % (Auto) 7.1 Eos % (Auto) 1.6 Baso % (Auto) 0.1 Neut # (Auto) 5.20 Lymph # (Auto) 1.38 Putnam # (Auto) 0.52 Eos # (Auto) 0.12 Baso # (Auto) 0.01 Immature Gran # (Auto) 0.12 H Sodium Potassium Chloride Carbon Dioxide Anion Gap BUN Creatinine Est Cr Clr Drug Dosing Est GFR ( Amer) Est GFR (Non-Af Amer) BUN/Creatinine Ratio Glucose POC Glucose 136 H Calcium Magnesium Total Bilirubin AST ALT Alkaline Phosphatase Troponin I 0.018 Total Protein Albumin Globulin Albumin/Globulin Ratio 07/29/20 07/29/20 07/29/20 08:58 11:49 14:49 WBC RBC Hgb Hct MCV MCH MCHC RDW Std Deviation RDW Coeff of Arabella Plt Count MPV Immature Gran % (Auto) Neut % (Auto) Lymph % (Auto) [place] % (Auto) Eos % (Auto) Baso % (Auto) Neut # (Auto) Lymph # (Auto) Putnam # (Auto) Eos # (Auto) Baso # (Auto) Immature Gran # (Auto) Sodium Potassium Chloride Carbon Dioxide Anion Gap BUN Creatinine Est Cr Clr Drug Dosing Est GFR ( Amer) Est GFR (Non-Af Amer) BUN/Creatinine Ratio Glucose POC Glucose 187 H Calcium Magnesium Total Bilirubin AST ALT Alkaline Phosphatase Troponin I < 0.015 0.018 Total Protein Albumin Globulin Albumin/Globulin Ratio 07/29/20 17:21 WBC RBC Hgb Hct MCV MCH MCHC RDW Std Deviation RDW Coeff of Arabella Plt Count MPV Immature Gran % (Auto) Neut % (Auto) Lymph % (Auto) Putnam % (Auto) Eos % (Auto) Baso % (Auto) Neut # (Auto) Lymph # (Auto) Putnam # (Auto) Eos # (Auto) Baso # (Auto) Immature Gran # (Auto) Sodium Potassium Chloride Carbon Dioxide Anion Gap BUN Creatinine Est Cr Clr Drug Dosing Est GFR ( Amer) Est GFR (Non-Af Amer) BUN/Creatinine Ratio Glucose POC Glucose 159 H Calcium Magnesium Total Bilirubin AST ALT Alkaline Phosphatase Troponin I Total Protein Albumin Globulin Albumin/Globulin Ratio
[2020-07-29] MEDS: ROSUVASTATIN CALCIUM 5 MG TAB PO SCH (21:07)
[2020-07-29] MEDS: ASPIRIN 81 MG ECTAB PO SCH (21:07)
[2020-07-29] MEDS: INSULIN GLARGINE SOLOSTAR 100 UNITS/ML 3 ML PEN SC SCH (21:09)
[2020-07-29] MEDS: SERTRALINE HCL 50 MG TABLET PO SCH (21:11)
[2020-07-30] MEDS: FLUTICASONE PROPIONATE NA SPR 16 GM BTL SCH (08:15)
[2020-07-30] MEDS: carvediloL 6.25 MG TAB PO SCH ×2 (08:15→20:19)
[2020-07-30] MEDS: LOSARTAN POTASSIUM 50 MG TAB PO SCH (08:15)
[2020-07-30] MEDS: DOCUSATE SODIUM SYRUP 100 MG/10 ML UDC PO SCH ×2 (08:15→20:20)
[2020-07-30] MEDS: POTASSIUM CHLORIDE 20 MEQ/15 ML UDC PO SCH (08:16)
[2020-07-30] MEDS: FUROSEMIDE 20 MG TAB PO SCH (08:16)
[2020-07-30] MEDS: SACCHAROMYCES BOULARDII 250 MG CAP PO SCH ×2 (08:16→20:20)
[2020-07-30] MEDS: levETIRAcetam 500 MG TAB PO SCH ×2 (08:16→20:21)
[2020-07-30] MEDS: SENNA 8.6 MG TAB PO SCH (08:17)
[2020-07-30] MEDS: PANTOprazole 40 MG TAB PO SCH (08:17)
[2020-07-30] MEDS: THIAMINE HCL 100 MG TAB PO SCH (08:17)
[2020-07-30] MEDS: HEPARIN SOD 5,000 UNIT/0.5 ML VIAL SQ SCH ×2 (09:17→21:06)
[2020-07-30] MEDS: INSULIN ASPART 100 UNITS/ML 3 ML PEN SC SCH ×4 (09:18→21:08)
[2020-07-30] MEDS: MULTIVITAMIN TAB PO SCH (15:42)
--- NOTE | 2020-07-30 16:40 | Hospitalist Progress Note ---
Date of Service July 30, 2020 Assessment & Plan (1) Acute hypoxemic respiratory failure: (1) Acute hypoxemic respiratory failure: as per ED notes on 07/17/2020: "This an 80-year-old male brought in from [facility] by EMS due to altered mental status. EMS reports that staff jeff calvillo reported to them patient had a syncopal episode yesterday, and then again this morning at 8 AM. They state patient was last seen in his usual state of health yesterday morning prior to the first syncopal event. They state on their arrival patient was tachypneic and had oxygen saturations of 80% on room air, they quickly placed him on a nonrebreather at 10 L/min and his oxygenation improved. Patient unable to provide any additional history. They state for them patient has been unresponsive despite eyes being open, will not otherwise communicate verbally, and no other response to painful stimuli. They also noted patient has been hypertensive and diaphoretic. They state they did check a blood sugar which was greater than 200 in route. Patient did seem to be incontinent of both urine and stool." Patient was treated for respiratory and cardiac issues, he was also found to have on this admission Left acetabular fracture, anterior to posterior column with superior roof involvement, minimal displacement which was likely due to recent fall at [facility] prior to hospital admission. Surgery was not recommended for the fracture and likely patient will return to [facility] on bedrest once medically ready for discharge from this hospital stay Acute hypoxic respiratory failure, multifactorial secondary to: Healthcare associated pneumonia with possible aspiration component Severe sepsis -80-year-old male with history of CAD/CABG, ischemic cardiomyopathy, sick sinus syndrome status post pacemaker, Diabetes type 2, hypertension, CVA, seizure, DVT, colorectal cancer, presenting with shortness of breath and hypoxia. (SIRS plus hypoxemia plus encephalopathy plus lactic acidosis secondary to above) -admission CT chest: Cardiomegaly and extensive coronary artery calcifications. Bilateral pleural effusions left greater than right with associated lower lobe atelectasis/consolidation. Subtle apical predominant groundglass pulmonary opacities, possibly representing pulmonary edema. An infectious/inflammatory processes could appear similar. 13 mm right upper lobe pulmonary nodule. Given the additional findings, this may be infectious/inflammatory. A one month follow-up chest CT is recommended. -Nasal MRSA swab: Negative COVID test: Negative Blood cultures Negative urine culture negative -on supplementary oxygen --Completed course of antibiotics including IV Zosyn, p.o. Augmentin and doxycycline Weaned off oxygen --Discussed with speech therapist Continue pured diet with thin liquids but patient has to be supervised with meals and speech therapy recommendations should be strictly followed to prevent aspiration events Acute systolic congestive heart failure exacerbation Ischemic cardiomyopathy History of CAD, status post CABG Sick sinus syndrome, status post pacemaker placement Hypertension Per Dr. Josias Mars's notes: Echocardiogram: EF 25 to 30%, diffuse hypokinesis to akinesis, moderate defect regurgitation, compared to 2018, left ventricular systolic function is mildly impaired -mildly elevated troponins on this admission -usually on Lasix 20 mg 4 times a week, 40 mg 3 times a week, was given IV Lasix on 07/21/2020 -07/22/2020 cardiology consult: "Continue current therapies as ordered with increasing topical nitrates for further hypertension control. Would resume oral regimen as previously ordered once cleared to take p.o. We will interrogate pacemaker given concerns regarding possible syncope as etiology of initial decline" -07/23/2020: patient taking more oral intake on 07/23/2020, resumed aspirin as oral form starting on 07/24/2020 rather than rectal -low dose BID carvedilol started on 07/23/2020 and to be increased to 12.5 mg BID starting on evening of 07/24/2020, nitropaste discontinued on 07/25/2020, on scheduled oral Lasix -on 07/26/2020 in crease the BID carvedilol to home dose 18.75 mg BID , also has been on home dose hydralazine 12.5 mg TID --> Usual Lasix p.o. resumed usual cardiac medications Euvolemic at this time Remains stable overall Hypokalemia -Resolved Acute Metabolic Encephalopathy, Metabolic History of CVA in the past -There is a right arm restriction but recent workup by head CT without evidence for acute stroke and no stroke as per recent neurology service assessment on 07/21/2020. -Back to baseline mental status History of seizure disorder -on [facility] Type 2 diabetes mellitus -well-controlled as of recent hemoglobin A1c of 6.09 June 2019 -sliding scale insulin as needed Left acetabular fracture -Status post mechanical fall, patient unfortunately fell from his bed days before hospital presentation -07/18/[address] Gonzalez: Left acetabular fracture, anterior to posterior column with superior roof involvement, minimal displacement; had recommended nonsurgical care -feet are in waffle boots, in recent past patient not appear to be able to move left leg much from the fracture injury without repair; patient seen able to wiggle the left foot toes on 07/26/2020 -Surgery was not recommended for the fracture and likely patient will return to [facility] on bedrest once medically ready for discharge from this hospital stay, discussed with orthopedics and that patient likely cannot bear weight on left leg for 6 weeks history DVT as per records -Heparin SC q12 hours while inpatient Chronic thrombocytopenia. Melena -reported? -Recent outpatient EGD from last month just showed gastritis. -Hemoglobin stable -Continue Protonix Constipation -Resolved Colorectal CA -status post surgery status post chemoradiation in the past Resident of [facility] DNR/DNI as per , Ms. Sylvie Quan [phone] / [phone]. Disposition Anticipate discharge to [facility] tomorrow when accepted Admission and Anticipated Discharge Date Admission Date: July 17, 2020 Subjective Follow-up for acute hypoxic respiratory failure, pneumonia, CHF exacerbation, other problems noted below Seen resting in bed, was having a coughing spell Per QUALITY ASSURANCE/R&D LAB TECHNICIAN, the patient has been coughing after his meals since a few days ago Assisted patient to have a drink of water with a straw, tolerated well multiple times Denies shortness of breath, chest pain Positive bowel movements No abdominal pain, nausea or vomiting No other symptoms Review of Systems Review of Systems: All systems reviewed & are unremarkable except as noted in HPI & below Physical Exam Physical Exam: General- oriented x 1-2, not in distress, speaks in sentences with no effort or accessory muscle use Eyes- anicteric Neck- no JVD Lungs- clear breath sounds bilaterally, no wheezing, no crackles bilaterally Heart- normal rate, regular rhythm; no murmurs Abdomen- normal bowel sounds, nondistended, soft, nontender Extremities- no pretibial edema, no calf tenderness Neuro- alert, oriented x 2; no gross focal neurologic deficits Skin- warm & dry Results & Data Results & Data ([facility]) Vital Signs (Past 12 Hours) Vital Signs Temp Pulse Resp BP Pulse Ox 07/30/20 15:37 96 07/30/20 15:17 37.1 C 66 16 106/65 97 07/30/20 13:36 72 115/69 07/30/20 08:05 36.3 C L 81 16 164/77 H 99 Laboratory Results Laboratory Results - last 24 hr 07/29/20 07/29/20 07/30/20 17:21 21:07 08:38 POC Glucose 159 H 141 H 136 H 07/30/20 11:54 POC Glucose 185 H
[2020-07-30] MEDS: ACETAMINOPHEN 325 MG TAB PO PRN (17:46)
[2020-07-30] MEDS: SERTRALINE HCL 50 MG TABLET PO SCH (20:19)
[2020-07-30] MEDS: ROSUVASTATIN CALCIUM 5 MG TAB PO SCH (20:20)
[2020-07-30] MEDS: ASPIRIN 81 MG ECTAB PO SCH (20:20)
[2020-07-30] MEDS: INSULIN GLARGINE SOLOSTAR 100 UNITS/ML 3 ML PEN SC SCH (21:07)
[2020-07-30] MEDS ORDERED: ALBUMIN 25% 50 ML IV ONE (21:45)
[2020-07-30 22:16] LABS: BUN Creatinine Ratio 23.6 (10-20); Calcium 9.8 mg/dl (8.5-10.1); Creatinine Clr Calc Pharmacy 42.4 ml/min; Est GFR (African American) 56.7; Est GFR (Non-African American) 48.9
[2020-07-30] MEDS ORDERED: ALBUT/IPRATROP 3MG/0.5MG NEB 3 ML VIAL NEB STA (22:40)
--- NOTE | 2020-07-30 22:41 | Communication Note ---
Date of Service: July 30, 2020 Patient with decreased urine output as per RN. Coughing with possible aspiration, coarse breath sounds as per RN. No hypoxemia. serum crea 1.35 from from 1.04 from 0.80 Chest x-ray as per my interpretation atelectasis, left lower lung field obstructed by pacemaker device AP Recurrent aspiration pneumonitis ARF, possible overdiuresis Unasyn for now, neb treatment Speech therapy ffup eval COVID-19 positive test (U07.1, COVID-19) with Acute Respiratory Distress Syndrome (ARDS) (J80, ARDS) (If respiratory failure or sepsis present, add as separate assessment) Hold diuretic, IV albumin 1 dose given history systolic dysfunction Check UA Will relay to AM provider.
[2020-07-30] MEDS ORDERED: methylPREDNISolone 20 MG in SYRINGE 0 ML IV STA (22:43)
[2020-07-30] MEDS ORDERED: methylPREDNISolone 20 MG in SYRINGE 0 ML IV ONE (22:45)
[2020-07-30] MEDS ORDERED: AMPICILLIN/SULBACTAM CONSULT ACTIVE PRN (23:55)
[2020-07-31] MEDS: AMPICILLIN/SULBACTAM SOD 3,000 MG in 0.9 % SODIUM CHLORIDE 100 ML IV SCH ×4 (00:16→17:14)
[2020-07-31 07:29] LABS: Creatinine Clr Calc Pharmacy 45.4 ml/min; Est GFR (African American) 61.6; Est GFR (Non-African American) 53.1
--- NOTE | 2020-07-31 08:05 | XRay Report ---
XR chest 1V portable CLINICAL HISTORY: Cough COMPARISON STUDY: 07/26/2020 FINDINGS: There are postsurgical changes of midline sternotomy. There is a left subclavian pacemaker. The right lung remains clear. There are persistent opacities the left base, likely representing a sm all pleural effusion with associated airspace opacities. There is an old fracture the right proximal humerus[ IMPRESSION: No significant change from the preceding study. Persistent small left pleural effusion wi th associated nonspecific left basilar airspace opacities ACT 112: Negative or not required by law. Electronically signed by: Jacky Bower M.D. 07/31/2020 8:03 AM
[2020-07-31] MEDS: carvediloL 6.25 MG TAB PO SCH ×2 (08:44→21:19)
[2020-07-31] MEDS: LOSARTAN POTASSIUM 50 MG TAB PO SCH (08:46)
[2020-07-31] MEDS: THIAMINE HCL 100 MG TAB PO SCH (08:47)
[2020-07-31] MEDS: levETIRAcetam 500 MG TAB PO SCH ×2 (08:47→21:18)
[2020-07-31] MEDS: PANTOprazole 40 MG TAB PO SCH (08:47)
[2020-07-31] MEDS: SACCHAROMYCES BOULARDII 250 MG CAP PO SCH ×2 (08:48→21:18)
[2020-07-31] MEDS: SENNA 8.6 MG TAB PO SCH (08:48)
[2020-07-31] MEDS: POTASSIUM CHLORIDE 20 MEQ/15 ML UDC PO SCH (08:49)
[2020-07-31] MEDS: FLUTICASONE PROPIONATE NA SPR 16 GM BTL SCH (08:49)
[2020-07-31] MEDS: DOCUSATE SODIUM SYRUP 100 MG/10 ML UDC PO SCH ×2 (08:50→21:18)
[2020-07-31] MEDS: HEPARIN SOD 5,000 UNIT/0.5 ML VIAL SQ SCH ×2 (08:54→21:33)
[2020-07-31] MEDS: INSULIN ASPART 100 UNITS/ML 3 ML PEN SC SCH ×4 (08:55→21:43)
--- NOTE | 2020-07-31 11:33 | Electrocardiogram Report ---
Test Reason : Blood Pressure : / mmHG Vent. Rate : 082 BPM Atrial Rate : 082 BPM P-R Int : 122 ms QRS Dur : 136 ms QT Int : 448 ms P-R-T Axes : 032 -53 108 degrees QTc Int : 523 ms Atrial-sensed ventricular-paced rhythm Abnormal ECG When compared with ECG of 17-JUL-2020 17:48, Premature ventricular complexes are no longer Present Vent. rate has decreased BY 28 BPM Confirmed by Richard Campa ([id number]) on 07/31/2020 11:32:38 AM Referred By: Gema garner [facility] Confirmed By:Richard Campa
[2020-07-31] MEDS: ACETAMINOPHEN 325 MG TAB PO PRN (12:32)
[2020-07-31] MEDS: MULTIVITAMIN TAB PO SCH (17:09)
[2020-07-31] MEDS: ASPIRIN 81 MG ECTAB PO SCH (21:18)
[2020-07-31] MEDS: ROSUVASTATIN CALCIUM 5 MG TAB PO SCH (21:18)
[2020-07-31] MEDS: SERTRALINE HCL 50 MG TABLET PO SCH (21:18)
[2020-07-31] MEDS: INSULIN GLARGINE SOLOSTAR 100 UNITS/ML 3 ML PEN SC SCH (21:33)
--- NOTE | 2020-07-31 21:35 | Hospitalist Progress Note ---
Date of Service July 31, 2020 Assessment & Plan (1) Acute hypoxemic respiratory failure: (1) Acute hypoxemic respiratory failure: as per ED notes on 07/17/2020: "This an 80-year-old male brought in from [facility] by EMS due to altered mental status. EMS reports that staff jeff calvillo reported to them patient had a syncopal episode yesterday, and then again this morning at 8 AM. They state patient was last seen in his usual state of health yesterday morning prior to the first syncopal event. They state on their arrival patient was tachypneic and had oxygen saturations of 80% on room air, they quickly placed him on a nonrebreather at 10 L/min and his oxygenation improved. Patient unable to provide any additional history. They state for them patient has been unresponsive despite eyes being open, will not otherwise communicate verbally, and no other response to painful stimuli. They also noted patient has been hypertensive and diaphoretic. They state they did check a blood sugar which was greater than 200 in route. Patient did seem to be incontinent of both urine and stool." Patient was treated for respiratory and cardiac issues, he was also found to have on this admission Left acetabular fracture, anterior to posterior column with superior roof involvement, minimal displacement which was likely due to recent fall at [facility] prior to hospital admission. Surgery was not recommended for the fracture and likely patient will return to [facility] on bedrest once medically ready for discharge from this hospital stay Acute hypoxic respiratory failure, multifactorial secondary to: Healthcare associated pneumonia with possible aspiration component Severe sepsis -80-year-old male with history of CAD/CABG, ischemic cardiomyopathy, sick sinus syndrome status post pacemaker, Diabetes type 2, hypertension, CVA, seizure, DVT, colorectal cancer, presenting with shortness of breath and hypoxia. (SIRS plus hypoxemia plus encephalopathy plus lactic acidosis secondary to above) -admission CT chest: Cardiomegaly and extensive coronary artery calcifications. Bilateral pleural effusions left greater than right with associated lower lobe atelectasis/consolidation. Subtle apical predominant groundglass pulmonary opacities, possibly representing pulmonary edema. An infectious/inflammatory processes could appear similar. 13 mm right upper lobe pulmonary nodule. Given the additional findings, this may be infectious/inflammatory. A one month follow-up chest CT is recommended. -Nasal MRSA swab: Negative COVID test: Negative Blood cultures Negative urine culture negative -on supplementary oxygen --Completed course of antibiotics including IV Zosyn, p.o. Augmentin and doxycycline Weaned off oxygen --Discussed with speech therapist Continue pured diet with thin liquids but patient has to be supervised with meals and speech therapy recommendations should be strictly followed to prevent aspiration events 07/31/2020: Unasyn started Acute systolic congestive heart failure exacerbation Ischemic cardiomyopathy History of CAD, status post CABG Sick sinus syndrome, status post pacemaker placement Hypertension Per Dr. Josias Mars's notes: Echocardiogram: EF 25 to 30%, diffuse hypokinesis to akinesis, moderate defect regurgitation, compared to 2018, left ventricular systolic function is mildly impaired -mildly elevated troponins on this admission -usually on Lasix 20 mg 4 times a week, 40 mg 3 times a week, was given IV Lasix on 07/21/2020 -07/22/2020 cardiology consult: "Continue current therapies as ordered with increasing topical nitrates for further hypertension control. Would resume oral regimen as previously ordered once cleared to take p.o. We will interrogate pacemaker given concerns regarding possible syncope as etiology of initial decline" -07/23/2020: patient taking more oral intake on 07/23/2020, resumed aspirin as oral form starting on 07/24/2020 rather than rectal -low dose BID carvedilol started on 07/23/2020 and to be increased to 12.5 mg BID starting on evening of 07/24/2020, nitropaste discontinued on 07/25/2020, on scheduled oral Lasix -on 07/26/2020 in crease the BID carvedilol to home dose 18.75 mg BID , also has been on home dose hydralazine 12.5 mg TID --> Usual Lasix p.o. resumed usual cardiac medications Euvolemic at this time Remains stable overall 07/31/2020: on the dry side, Hold Lasix Hypokalemia -Resolved Acute Metabolic Encephalopathy, Metabolic History of CVA in the past -There is a right arm restriction but recent workup by head CT without evidence for acute stroke and no stroke as per recent neurology service assessment on 07/21/2020. -Back to baseline mental status History of seizure disorder -on [facility] Type 2 diabetes mellitus -well-controlled as of recent hemoglobin A1c of 6.09 June 2019 -sliding scale insulin as needed Left acetabular fracture -Status post mechanical fall, patient unfortunately fell from his bed days before hospital presentation -07/18/[address] Gonzalez: Left acetabular fracture, anterior to posterior column with superior roof involvement, minimal displacement; had recommended nonsurgical care -feet are in waffle boots, in recent past patient not appear to be able to move left leg much from the fracture injury without repair; patient seen able to wiggle the left foot toes on 07/26/2020 -Surgery was not recommended for the fracture and likely patient will return to [facility] on bedrest once medically ready for discharge from this hospital stay, d iscussed with orthopedics and that patient likely cannot bear weight on left leg for 6 weeks history DVT as per records -Heparin SC q12 hours while inpatient Chronic thrombocytopenia. Melena -reported? -Recent outpatient EGD from last month just showed gastritis. -Hemoglobin stable -Continue Protonix Constipation -Resolved Colorectal CA -status post surgery status post chemoradiation in the past Resident of [facility] DNR/DNI as per , Ms. Sylvie Quan [phone] / [phone]. Disposition Anticipate discharge to [facility] tomorrow when accepted Admission and Anticipated Discharge Date Admission Date: July 17, 2020 Subjective Follow-up for respiratory failure, pneumonia, CHF, other problems noted below Events overnight noted Seen sleeping but comfortable, easily awakened Oriented x2, off oxygen, saturating well on room air 95%, not in distress at all Says he feels fine No shortness of breath, chest pain, dizziness, palpitations No abdominal pain, no other symptoms Review of Systems Review of Systems: All systems reviewed & are unremarkable except as noted in Subjective Physical Exam Physical Exam: General- oriented x 2, not in distress, speaks in sentences with no effort or accessory muscle use Eyes- anicteric Neck- no JVD Lungs- clear breath sounds bilaterally, no crackles/wheezing good air entry bilaterally Heart- normal rate, regular rhythm; no murmurs Abdomen- normal bowel sounds, nondistended, soft, nontender Extremities- no pretibial edema, no calf tenderness Neuro- alert, oriented x 2; no new gross focal neurologic deficits Skin- warm & dry Results & Data Results & Data ([facility]) Vital Signs (Past 12 Hours) Vital Signs Temp Pulse Pulse Pulse Resp BP Pulse Ox 07/31/20 20:41 73 139/71 07/31/20 16:44 82 160/70 H 07/31/20 15:17 36.3 C L 79 16 148/72 H 97 07/31/20 12:30 79 137/75 Laboratory Results Laboratory Results - last 24 hr 07/31/20 07/31/20 07/31/20 12:09 16:56 21:00 Creatinine Est Cr Clr Drug Dosing Est GFR ( Amer) Est GFR (Non-Af Amer) POC Glucose 288 H 232 H 140 H 08/01/20 08/01/20 05:34 08:49 Creatinine 1.11 Est Cr Clr Drug Dosing 53.0 Est GFR ( Amer) 71.8 Est GFR (Non-Af Amer) 61.9 POC Glucose 120 H
[2020-08-01] MEDS: AMPICILLIN/SULBACTAM SOD 3,000 MG in 0.9 % SODIUM CHLORIDE 100 ML IV SCH ×3 (00:34→13:41)
[2020-08-01 06:39] LABS: Est GFR (African American) 71.8; Est GFR (Non-African American) 61.9
[2020-08-01] MEDS: DOCUSATE SODIUM SYRUP 100 MG/10 ML UDC PO SCH (08:45)
[2020-08-01] MEDS: carvediloL 6.25 MG TAB PO SCH (08:45)
[2020-08-01] MEDS: LOSARTAN POTASSIUM 50 MG TAB PO SCH (08:46)
[2020-08-01] MEDS: SACCHAROMYCES BOULARDII 250 MG CAP PO SCH (08:48)
[2020-08-01] MEDS: FLUTICASONE PROPIONATE NA SPR 16 GM BTL SCH (08:48)
[2020-08-01] MEDS: levETIRAcetam 500 MG TAB PO SCH (08:49)
[2020-08-01] MEDS: PANTOprazole 40 MG TAB PO SCH (08:50)
[2020-08-01] MEDS: POTASSIUM CHLORIDE 20 MEQ/15 ML UDC PO SCH (08:51)
[2020-08-01] MEDS: THIAMINE HCL 100 MG TAB PO SCH (08:52)
[2020-08-01] MEDS: SENNA 8.6 MG TAB PO SCH (08:52)
[2020-08-01] MEDS: HEPARIN SOD 5,000 UNIT/0.5 ML VIAL SQ SCH (08:56)
[2020-08-01] MEDS: INSULIN ASPART 100 UNITS/ML 3 ML PEN SC SCH ×2 (08:58→13:33)
--- NOTE | 2020-08-01 10:55 | Hospitalist Progress Note ---
Date of Service August 01, 2020 Assessment & Plan (1) Acute hypoxemic respiratory failure: (1) Acute hypoxemic respiratory failure: as per ED notes on 07/17/2020: "This an 80-year-old male brought in from [facility] by EMS due to altered mental status. EMS reports that staff jeff calvillo reported to them patient had a syncopal episode yesterday, and then again this morning at 8 AM. They state patient was last seen in his usual state of health yesterday morning prior to the first syncopal event. They state on their arrival patient was tachypneic and had oxygen saturations of 80% on room air, they quickly placed him on a nonrebreather at 10 L/min and his oxygenation improved. Patient unable to provide any additional history. They state for them patient has been unresponsive despite eyes being open, will not otherwise communicate verbally, and no other response to painful stimuli. They also noted patient has been hypertensive and diaphoretic. They state they did check a blood sugar which was greater than 200 in route. Patient did seem to be incontinent of both urine and stool." Patient was treated for respiratory and cardiac issues, he was also found to have on this admission Left acetabular fracture, anterior to posterior column with superior roof involvement, minimal displacement which was likely due to recent fall at [facility] prior to hospital admission. Surgery was not recommended for the fracture and likely patient will return to [facility] on bedrest once medically ready for discharge from this hospital stay Acute hypoxic respiratory failure, multifactorial secondary to: Healthcare associated pneumonia with possible aspiration component Severe sepsis -80-year-old male with history of CAD/CABG, ischemic cardiomyopathy, sick sinus syndrome status post pacemaker, Diabetes type 2, hypertension, CVA, seizure, DVT, colorectal cancer, presenting with shortness of breath and hypoxia. (SIRS plus hypoxemia plus encephalopathy plus lactic acidosis secondary to above) -admission CT chest: Cardiomegaly and extensive coronary artery calcifications. Bilateral pleural effusions left greater than right with associated lower lobe atelectasis/consolidation. Subtle apical predominant groundglass pulmonary opacities, possibly representing pulmonary edema. An infectious/inflammatory processes could appear similar. 13 mm right upper lobe pulmonary nodule. Given the additional findings, this may be infectious/inflammatory. A one month follow-up chest CT is recommended. -Nasal MRSA swab: Negative COVID test: Negative Blood cultures Negative urine culture: negative -Was placed on supplementary oxygen, eventually weaned off --Completed course of antibiotics including IV Zosyn, p.o. Augmentin and doxycycline Weaned off oxygen --Discussed with speech therapist Continue pured diet with thin liquids but patient has to be supervised with meals and speech therapy recommendations should be strictly followed to prevent aspiration events Please refer to discharge instructions for speech therapy recommendations Continue speech therapy evaluation and treatment Acute systolic congestive heart failure exacerbation Ischemic cardiomyopathy History of CAD, status post CABG Sick sinus syndrome, status post pacemaker placement Hypertension Per Dr. Josias Mars's notes: Echocardiogram: EF 25 to 30%, diffuse hypokinesis to akinesis, moderate defect regurgitation, compared to 2018, left ventricular systolic function is mildly impaired -mildly elevated troponins on this admission -usually on Lasix 20 mg 4 times a week, 40 mg 3 times a week, was given IV Lasix on 07/21/2020 -07/22/2020 cardiology consult: "Continue current therapies as ordered with increasing topical nitrates for further hypertension control. Would resume oral regimen as previously ordered once cleared to take p.o. We will interrogate pacemaker given concerns regarding possible syncope as etiology of initial decline" -07/23/2020: patient taking more oral intake on 07/23/2020, resumed aspirin as oral form starting on 07/24/2020 rather than rectal -low dose BID carvedilol started on 07/23/2020 and to be increased to 12.5 mg BID starting on evening of 07/24/2020, nitropaste discontinued on 07/25/2020, on scheduled oral Lasix -on 07/26/2020 in crease the BID carvedilol to home dose 18.75 mg BID , also has been on home dose hydralazine 12.5 mg TID --> Usual Lasix p.o. resumed usual cardiac medications continued Employment Representative consulted Euvolemic at this time Remains stable overall Repeat basic metabolic profile to monitor renal function in 2 to 3 days, then regularly Hypokalemia -Resolved Acute Metabolic Encephalopathy, Metabolic History of CVA in the past -There is a right arm restriction but recent workup by head CT without evidence for acute stroke and no stroke as per recent neurology service assessment on 07/21/2020. -Back to baseline mental status History of seizure disorder -on [facility] Type 2 diabetes mellitus -well-controlled as of recent hemoglobin A1c of 6.09 June 2019 -Continue metformin, monitor kidney function closely Left acetabular fracture -Status post mechanical fall, patient unfortunately fell from his bed days before hospital presentation -07/18/[address] Gonzalez: Left acetabular fracture, anterior to posterior column with superior roof involvement, minimal displacement; had recommended nonsurgical care -feet are in waffle boots, in recent past patient not appear to be able to move left leg much from the fracture injury without repair; patient seen able to wiggle the left foot toes on 07/26/2020 -Surgery was not recommended for the fracture and likely patient will return to [facility] on bedrest once medically ready for discharge from this hospital stay, discussed with orthopedics and that patient likely cannot bear weight on left leg for 6 weeks history DVT as per records -Heparin SC q12 hours Chronic thrombocytopenia. -Stable Melena -reported? -Recent outpatient EGD from last month just showed gastritis. -Hemoglobin stable -Continue Protonix Constipation -Resolved Colorectal CA -status post surgery status post chemoradiation in the past DNR/DNI as per , Ms. Sylvie Quan [phone] / [phone]. 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 reports patient has been doing well with breakfast No signs of aspiration Patient denies shortness of breath, chest pain, abdominal pain No other symptoms Review of Systems Review of Systems: All systems reviewed & are unremarkable except as noted in Subjective Physical Exam Physical Exam: General- oriented x 1-2, not in distress, speaks in sentences with no effort or accessory muscle use Eyes- anicteric Neck- no JVD Lungs- clear breath sounds bilaterally, no crackles or wheezing Good air entry bilateral lungs Heart- normal rate, regular rhythm; no murmurs Abdomen- normal bowel sounds, nondistended, soft, nontender Extremities- no pretibial edema, no calf tenderness Neuro- alert, oriented x 1-2; no gross focal neurologic deficits Skin- warm & dry Results & Data Results & Data ([facility]) Vital Signs (Past 12 Hours) Vital Signs Temp Pulse Resp BP Pulse Ox 08/01/20 07:09 64 16 176/78 H 96 07/31/20 23:47 36.4 C L 70 16 118/62 96
--- NOTE | 2020-08-01 12:58 | Discharge Summary ---
Date of Service August 01, 2020 Admission HPI Per Admitting Provider History obtained from [facility]iary staff, family, and records. Unable to reliably obtain history from patient secondary to chronic aphasia, weakness. Medical history significant for chronic systolic heart failure secondary to ischemic cardiomyopathy (EF of 40-44%, TTE 2018), coronary artery disease s/p CABG, SSS sp PPM, HTN, hx CVA, PVD, hyperlipidemia, colorectal CA status post surgery status post chemoradiation, DM2 on oral medications, history of seizure disorder on Keppra, history DVT as per records, chronic anemia baseline hemoglobin 11-12 (05/2020), chronic thrombocytopenia. Last confinement February 2020 for right femoral fracture secondary to mechanical fall status post surgery. Patient discharge to [facility] for rehab and has not been able to leave facility since. As per penitentiary staff, patient slid off his bed landing on his bottom a few days ago. No pain complaints as per provider. 3 days ago, patient noted by coughing and somewhat choking on food over the phone. also complaining that patient having loose stools with all the medications he was given at the facility. As per , choking episodes would happen even at home. Yesterday, patient had a witnessed syncopal event while trying to move his bowels as per penitentiary staff. Usual dark stools as per staff. Patient without abdominal pain complaints. Later that evening, noted patient somewhat short of breath sounding over the phone, cough symptoms noted. alerted penitentiary staff but did not get call back after. Today, patient had another witnessed syncopal event on the commode while trying to move his bowels as per staff. Patient however noted to be hypoxemic, O2 sats 70s, in respiratory distress, with decreased responsiveness. Hypoxemia attributed to possible lack of head and neck support as per penitentiary provider note. Supplemental O2 and Keppra level checked. Patient brought to the ER for evaluation for worsening respiratory distress. BiPAP initially rendered for respiratory distress later downgraded to supplemental O2. At the ER, patient received Vancomycin and Cefepime for sepsis. Dark stools noted at the ER. Stool Hemoccult weakly positive as per ER provider. IV Protonix infusion subsequently initiated for possible UGI B. Medical History as above Outpatient work-up for dark stools June 2020. EGD showed gastritis. Colonoscopy showed polyps, diverticulosis, rectal ulcer, patent end-to-side ileocolonic anastomosis. Surgical History : CABG, vascular procedures, pacemaker, partial colectomy, appendectomy, hernia repair, TA, skin graft surgery, shoulder surgery, urologic procedure, hip fracture surgery Family History : Multiple myeloma, diabetes, heart disease, breast cancer, prostate cancer Personal/Social history : Non-smoker, no EtOH intake, penitentiary resident Admission Exam Per Admitting Provider GENERAL: Obtunded, aphasic, slightly hard of hearing, respiratory distress, SKIN: Pallor , warm HEENT: Alopecia, pale palpebral conjunctivae, no ptosis, chronic subtle facial asymmetry, dry buccal mucosa, nasal cannula in place NECK : Supple, no tenderness CHEST : Decreased breath sounds, expiratory wheezes, no tenderness HEART : RRR, systolic murmur ABDOMEN: Some distention, healed incisional scars, nontender EXTREMITIES : Minimal left hip tenderness, minimal LE swelling NEUROLOGIC : Obtunded, chronic subtle facial asymmetry, MMTs is not fully assessed Principal Diagnosis Acute hypoxic respiratory failure, multifactorial secondary to: Healthcare associated pneumonia with possible aspiration component, Severe sepsis Left acetabular fracture Discharge Exam General- oriented x 1-2, not in distress, speaks in sentences with no effort or accessory muscle use Eyes- anicteric Neck- no JVD Lungs- clear breath sounds bilaterally, no crackles or wheezing Good air entry bilateral lungs Heart- normal rate, regular rhythm; no murmurs Abdomen- normal bowel sounds, nondistended, soft, nontender Extremities- no pretibial edema, no calf tenderness Neuro- alert, oriented x 1-2; no gross focal neurologic deficits Skin- warm & dry Discharge Data Allergies Allergy/AdvReac Type Severity Reaction Status Date / Time tramadol Allergy Severe seizures Verified 07/17/20 21:24 iodine Allergy Intermediate airway Verified 07/17/20 21:24 edema oxycodone Allergy Intermediate "itchiness Verified 07/17/20 21:24 all over" codeine AdvReac Intermediate hallucinations, Verified 07/17/20 21:24 depression ANCELMO Inhibitors AdvReac Mild COUGHING Verified 07/17/20 21:24 felodipine AdvReac Mild cough Verified 07/17/20 21:24 Consultations 07/17/20 20:14 ED Decision to Admit Stat 07/17/20 22:38 Consult Case Management - Discharge Planning Routine Consult Orthopedic Surgery Routine 07/20/20 12:46 Consult Neurology Routine 07/21/20 18:30 Consult Cardiology Routine Ordered Studies 07/17/20 18:03 CT head/brain wo con Stat COMPARISON STUDY: Head CT February 01, 2020. TECHNIQUE: Helical axial images of the head were obtained without IV contrast. Automated exposure control was utilized for the study. A dose lowering technique was utilized adhering to the principles of ALARA. FINDINGS: No acute intracranial hemorrhage, midline shift or mass effect is present. Ventricular system is stable. Basilar cisterns are patent. There are no extra axial collections. 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 These are unchanged. White matter hypodensity suggests small vessel disease. There are no findings to suggest acute dural sinus thrombosis or acute territorial infarct. No calvarial fracture is present. IMPRESSION: No acute intracranial findings. No change in appearance of the brain. 07/17/20 18:17 CT abd pelvis wo con Stat COMPARISON STUDY: CT of the abdomen and pelvis November 12, 2018. TECHNIQUE: Axial images of the abdomen and pelvis were obtained without IV contrast. Images were reviewed in the axial, sagittal, and coronal planes. Automated exposure control was utilized for the study. A dose lowering technique was utilized adhering to the principles of ALARA. FINDINGS: Visualized portions of the lower chest demonstrate trace right and small left pleural effusions. There is extensive left lower lobe airspace opacity with volume loss. There is bilateral gynecomastia. Evaluation of the abdomen and pelvis is suboptimal on this unenhanced examination. No pneumatosis, free air or portal venous gas is present. There is no significant biliary ductal dilatation status post cholecystectomy. Unenhanced images of the liver, spleen, adrenal glands and pancreas are unremarkable. There is no hydronephrosis. There is no evidence for a bowel obstruction. Sensitivity for detection mucosal lesions is diminished on this exam. Presacral/perirectal infiltration/soft tissue is unchanged since CT of November 12, 2018. Note is made of enlargement of the prostate. Bladder wall thickening is noted. There are calcifications within the right posterior lateral wall the bladder. No lymphadenopathy is present. There are multiple lower thoracic and lumbar spine compression fractures which are likely old. Right femoral internal fixation hardware is noted. Note is made of a comminuted displaced fractures of the morillo of the left acetabulum. There is no proximal left femoral fracture. No acute pelvic fractures identified. Sacroiliac joints are intact. IMPRESSION: 1. Extensive left acetabular fracture which involves all morillo of the left acetabulum. Fracture appears acute. No proximal left femoral fracture. 2. Small left pleural effusion with left basilar opacity could reflect atelectasis or consolidation. 3. No bowel obstruction. Stable presacral/perirectal infiltration and soft tissue. This is likely post therapeutic. 4. Moderate bladder wall thickening with apparent calcifications within the right posterior lateral wall of the bladder. These findings are nonspecific and may be correlated with urinalysis and urine cytology. 07/18/20 08:07 CT chest wo con Routine COMPARISON STUDY: Chest x-ray dated 07/17/2020, CT scan dated 09/07/2018 CT DOSE: 775.89 mGy.cm TECHNIQUE: CT of the thorax was performed from the thoracic inlet to the lung bases. Images are reviewed in the axial, sagittal, and coronal planes. IV contrast was not administered for this examination. A dose lowering technique was utilized adhering to the principles of ALARA. FINDINGS: Thyroid: Imaged portions of the thyroid gland are normal in appearance. Thoracic aorta: The thoracic aorta is normal in course and caliber, noting standard 3 vessel arch anatomy. Heart: The heart is enlarged. There is a left subclavian central venous pacemaker. There are coronary artery calcifications. There is no significant pericardial effusion. Lungs and pleural spaces: There are small bilateral pleural effusions left larger than right. There is bilateral dependent atelectasis/consolidation. There is respiratory motion artifact. There are subtle apical predominant groundglass pulmonary opacities. There is an irregular 13 mm right upper lobe nodule. Mediastinum: Mediastinal lymph nodes are the upper limits of normal in size Vi: There is no evidence of pathologic hilar adenopathy given the limitations of noncontrast study Axilla: There is no evidence of pathologic axillary lymphadenopathy Upper abdomen: Partially visualized upper abdominal viscera is within normal limits. Skeletal structures: There are postsurgical changes of a midline sternotomy IMPRESSION: 1. Cardiomegaly and extensive coronary artery calcifications 2. Bilateral pleural effusions left greater than right with associated lower lobe atelectasis/consolidation 3. Subtle apical predominant groundglass pulmonary opacities, possibly representing pulmonary edema. An infectious/inflammatory processes could appear similar 4. 13 mm right upper lobe pulmonary nodule. Given the additional findings, this may be infectious/inflammatory. A one month follow-up chest CT is recommended. 07/20/20 16:15 CT head/brain wo con Stat COMPARISON STUDY: CT of the brain dated 07/17/2020. TECHNIQUE: Unenhanced axial CT scan of the brain is performed from the vertex to the skull base. A dose lowering technique was utilized adhering to the principles of ALARA. CT DOSE: 729.78 mGycm FINDINGS: Brain parenchyma: There are age-related involutional changes noting moderate confluent subcortical and periventricular microangiopathic change. There is no hemorrhage, mass effect, or evidence of acute territorial ischemia by CT criteria. There are chronic lacunar infarcts in the left basal ganglia and the left periventricular white matter with ex vacuo dilatation of the left lateral ventricle. There is Wallerian degeneration of the left joel. Ann-white matter differentiation is preserved. No extra-axial fluid collection is seen. Ventricles, sulci, cisterns: Prominent secondary to involutional change. Intracranial vasculature: There is atherosclerotic calcification of the cavernous carotid and vertebral arteries. Calvarium: Unremarkable. Sinuses and mastoids: The visualized paranasal sinuses are clear. The mastoid air cells are well pneumatized. Orbits: The bony orbits are grossly intact. There are bilateral ocular lens implants. IMPRESSION: There is no hemorrhage, mass effect, or evidence of acute territorial ischemia by CT criteria. Hospital Course (1) Acute hypoxemic respiratory failure: (1) Acute hypoxemic respiratory failure: as per ED notes on 07/17/2020: "This an 80-year-old male brought in from [facility] by EMS due to altered mental status. EMS reports that staff they reported to them patient had a syncopal episode yesterday, and then again this morning at 8 AM. They state patient was last seen in his usual state of health yesterday morning prior to the first syncopal event. They state on their arrival patient was tachypneic and had oxygen saturations of 80% on room air, they quickly placed him on a nonrebreather at 10 L/min and his oxygenation improved. Patient unable to provide any additional history. They state for them patient has been unresponsive despite eyes being open, will not otherwise communicate verbally, and no other response to painful stimuli. They also noted patient has been hypertensive and diaphoretic. They state they did check a blood sugar which was greater than 200 in route. Patient did seem to be incontinent of both urine and stool." Patient was treated for respiratory and cardiac issues, he was also found to have on this admission Left acetabular fracture, anterior to posterior column with superior roof involvement, minimal displacement which was likely due to recent fall at [facility] prior to hospital admission. Surgery was not recommended for the fracture . Acute hypoxic respiratory failure, multifactorial secondary to: Healthcare associated pneumonia with possible Aspiration component, Severe sepsis High aspiration risk -80-year-old male with history of CAD/CABG, ischemic cardiomyopathy, sick sinus syndrome status post pacemaker, Diabetes type 2, hypertension, CVA, seizure, DVT, colorectal cancer, presenting with shortness of breath and hypoxia. (SIRS plus hypoxemia plus encephalopathy plus lactic acidosis secondary to above) -admission CT chest: Cardiomegaly and extensive coronary artery calcifications. Bilateral pleural effusions left greater than right with associated lower lobe atelectasis/consolidation. Subtle apical predominant groundglass pulmonary opacities, possibly representing pulmonary edema. An infectious/inflammatory processes could appear similar. 13 mm right upper lobe pulmonary nodule. Given the additional findings, this may be infectious/inflammatory. A one month follow-up chest CT is recommended. -Nasal MRSA swab: Negative COVID test: Negative Blood cultures Negative Urine culture: negative -Was placed on supplementary oxygen, eventually weaned off --Completed course of antibiotics including IV Zosyn, p.o. Augmentin and doxycycline --Discussed with speech therapist: Continue pured diet with thin liquids but patient has to be supervised with meals and speech therapy recommendations should be strictly followed to prevent aspiration events PLEASE REFER TO DISCHARGE INSTRUCTIONS FOR SPEECH THERAPY RECOMMENDATIONS. Continue speech therapy evaluation and treatment Acute systolic congestive heart failure exacerbation Ischemic cardiomyopathy History of CAD, status post CABG Sick sinus syndrome, status post pacemaker placement Hypertension Per Dr. Josias Mars's notes: Echocardiogram: EF 25 to 30%, diffuse hypokinesis to akinesis, moderate defect regurgitation, compared to 2018, left ventricular systolic function is mildly impaired -mildly elevated troponins on this admission -usually on Lasix 20 mg 4 times a week, 40 mg 3 times a week patient was given IV Lasix, diuresed well Was able to be transition to usual Lasix p.o. regimen Box Packer consulted, Dr. Andrea Jerez -low dose BID carvedilol started and to increased to 18.75 mg BID -Other chronic medications continued --> Euvolemic at this time Remains stable overall Repeat basic metabolic profile to monitor renal function in 2 to 3 days, then regularly Monitor volume status closely and adjust Lasix accordingly Follow-up with multiskill operator in 1 month Hypokalemia -Resolved Acute Metabolic Encephalopathy, Metabolic, likely secondary to above History of CVA in the past CT head: No acute intracranial hemorrhage, midline shift or mass effect is present. Ventricular system is stable. Basilar cisterns are patent. There are no extra axial collections. 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 These are unchanged. White matter hypodensity suggests small vessel disease. There are no findings to suggest acute dural sinus thrombosis or acute territorial infarct. No calvarial fracture is present. -Back to baseline mental status Left acetabular fracture -Status post mechanical fall, patient unfortunately fell from his bed days before hospital presentation -07/18/[address] Gonzalez: Left acetabular fracture, anterior to posterior column with superior roof involvement, minimal displacement; had recommended nonsurgical care -feet are in waffle boots, in recent past patient not appear to be able to move left leg much from the fracture injury without repair; patient seen able to wiggle the left foot toes on 07/26/2020 -Surgery was not recommended for the fracture , discussed with orthopedics and that patient likely cannot bear weight on left leg for 6 weeks -Follow-up with orthopedic surgeon in 2 to 3 weeks -Fall precautions Pulmonary nodule Seen on CT chest: 13 mm right upper lobe pulmonary nodule. Given the additional findings, this may be infectious/inflammatory. A one month follow-up chest CT is recommended. History of seizure disorder -on [facility] Type 2 diabetes mellitus -well-controlled as of recent hemoglobin A1c of 6.09 June 2019 -Continue metformin, monitor kidney function closely history DVT as per records -Heparin SC q12 hours for DVT prophylaxis as patient is nonambulatory Reevaluate regularly Chronic thrombocytopenia. -Stable Melena -reported? -Recent outpatient EGD from last month just showed gastritis. -Hemoglobin stable -Continue Protonix Constipation -Resolved Continue stool softeners Colorectal CA -status post surgery status post chemoradiation in the past DNR/DNI as per , Ms. Sylvie Quan [phone] / [phone]. Disposition discharge to [facility] Follow-up with PCP per discharge instructions Follow-up with orthopedic surgeon in 2 to 3 weeks Follow-up with multiskill operator in 1 month Plan of care discussed with patient's All Questions were answered she is understanding, agreeable, comfortable plan of care Total Time Total Time Spent Total Time Spent (In Minutes): 60 minutes Discharge Plan Discharge Items Patient Disposition: Transfer [facility] Reason For Visit: RESP FAILURE,TROP ELEVATED,COVID NEG,DC ISOL PREC Discharge Diagnosis: Acute hypoxic respiratory failure, multifactorial secondary to: Healthcare associated pneumonia with possible aspiration component Severe sepsis Congestive heart failure exacerbation Left acetabular fracture Acute Metabolic Encephalopathy, Metabolic Acute Systolic Congestive Heart Failure exacerbation Ischemic cardiomyopathy History of CAD, status post CABG in the past Type 2 diabetes mellitus Sick sinus syndrome, status post pacemaker placement in the past Hypertension Constipation History of Seizure order in the past Activity: Resume your previous activity Activity Comment: Care with transfers, fall precautions please, continue PT and OT Weightbearing: Left non-weightbearing Weightbearing Comment: nonweightbearing of left leg x 6 weeks Non-emergency contact: Primary Care Provider Call non-emergency contact if: you have any medication questions, your symptoms worsen, your pain is not controlled, your pain is worsening, your pain is unusual for you, your pain is concerning for you and you have a fever Follow-up/Referrals: Baldo Gonzalez DO [Surgeon] - Xavi Moreno MD [Primary Care Provider] - 08/10/20 9:00 am Diet: Carb Consistent or DM2, Low Sodium (2gm) and Other - See Diet Comment Diet Texture: Pureed (blended smooth) Addtl Attending Provider Instructions: orthopedics Dr. Gonzalez: Left acetabular fracture, anterior to posterior column with superior roof involvement, minimal displacement; had recommended nonsurgical care - discussed with orthopedics and that patient likely cannot bear weight on left leg for 6 weeks Addtl Training Lead Provider Instructions: PLEASE FOLLOW SPEECH THERAPY RECOMMENDATIONS VERY CLOSELY. PATIENT IS HIGH RISK FOR ASPIRATION. For this patient to be safe during meals, the following muscles are: #1 use straws with this patient. Do not pour liquids into his mouth. #2 once patient starts holding food or liquid in his mouth, HE MUST BE GIVEN A BREAK He has overt issues with fatigue doing meals. He is recovering from brainstem involvement with a stroke. He will require EXTRA TIME for all meals, or small meals more frequently through the day. #3 patient has ability to clear his throat adequately. If he starts to sound wet, just encouraged this. If his voice does not clear then that is the time for a break from eating/drinking. #4 thickened liquids ARE NOT recommended for this patient. He likes ice water and is an excellent candidate for water protocol as long as he is receiving adequate oral hygiene. #5 he would benefit from continued TELEGRAPHIC TYPEWRITER INSTALLER intervention for increasing strength and working toward diet advancement. His comprehension is good. Use aspiration precautions listed. Call TELEGRAPHIC TYPEWRITER INSTALLER at Monday to [facility] with any questions to [phone] Aspiration precautions: Alternate solids and liquids Supervised meals Fully alert and upright Oral hygiene Single bites, small sips, slow rate PLEASE REFER TO ACCOMPANYING HOSPITAL DISCHARGE SUMMARY FOR FULL DETAILS. Call 911 and go to the Emergency Room if: * You have tightness or pain in your chest that does not go away with rest or Nitroglycerin * You are very short of breath even with rest Call your doctor if any of the following symptoms or problems start or get worse: * Shortness of breath or difficulty breathing * Wake up at night short of breath * Chest pain * Cough * Swelling of your hands, fee, or legs * More fatigued or tired with your normal activity * Palpitations - sudden fast heart beats WEIGHT * Weigh yourself every morning after using the bathroom. * Use the same scale. * Wear the same amount of clothing. * Write your weight down on your chart. * Call your doctor if you gain more than 2-3 pounds in 1-2 days. MEDICATIONS * Use this discharge instruction sheet for instructions. * Take your medications at the time your doctor ordered. * Do not skip a dose of your medicines. * If you miss a dose of medicine, take as soon as possible, but DO NOT DOUBLE A DOSE. * Read your medicine information when you get home. * Know all of the side effects of your medicine. * Call your doctor's office if you have any side effects. * Be sure all of your doctors know what medicine and herbs you take (including cold, flu, and herbal medicine). * Pain Medicine: If you do not get relief from your pain, please call your doctor for help. Take the following with you to your follow-up doctor appointments: * Weight Chart * Medication List * List of questions Do not drink excessive alcohol, beer or wine. Pending Studies at Discharge: No Stand-Alone Forms: My [facility] Skilled Items Patient informed of condition?: Yes DNR: Yes Discharge Level of Care: Skilled Communicable Disease: No Discharge Prognosis: Improving Lines: None Urinary Catheter: No Medications and DC Order Prescriptions: New heparin, porcine (PF) 5,000 unit/0.5 mL Syringe 5,000 unit subcut Q12 Qty: 30 RF: 1 sennosides [Senokot] 8.6 mg Tablet 8.6 mg PO QAM Qty: 30 RF: 0 carvedilol 6.25 mg Tablet 18.75 mg PO BID Qty: 180 RF: 0 Continued furosemide 40 mg tablet 20 mg PO 4XWK RF: 0 metformin 500 mg tablet 500 mg PO BIDM RF: 0 Fiber Laxative (methylcellulo) 500 mg Tablet 500 mg PO TIDM RF: 0 acetaminophen 500 mg Tablet 1,000 mg PO Q8H Qty: 30 RF: 0 ferrous sulfate 325 mg (65 mg iron) Tablet,Delayed Release (Dr/Ec) 325 mg PO TIDM Qty: 90 RF: 0 bisacodyl 10 mg Suppository 10 mg ND DAILY PRN (Reason: constipation) Qty: 30 RF: 0 ergocalciferol (vitamin D2) 1,250 mcg (50,000 unit) Capsule 50,000 unit PO Q7D@0900 Qty: 5 RF: 0 multivitamin Tablet 1 tab PO QDD RF: 0 furosemide [Lasix] 40 mg tablet 40 mg PO 3XWK RF: 0 clopidogrel [Plavix] 75 mg tablet 75 mg PO HS RF: 0 dicyclomine 20 mg tablet 20 mg PO Q6 PRN (Reason: Abdominal Discomfort) RF: 0 nitroglycerin [Nitrostat] 0.4 mg tablet, sublingual 0.4 mg Sublingual UD PRN (Reason: Chest Pain) RF: 0 losartan [Cozaar] 100 mg tablet 100 mg PO QAM RF: 0 hydralazine 25 mg tablet 12.5 mg PO TIDM RF: 0 aspirin [Aspir-81] 81 mg Tablet,Delayed Release (Dr/Ec) 81 mg PO HS RF: 0 hydrocortisone [Anusol-HC] 2.5 % Cream With Perineal Applicator 1 applic ND BID RF: 0 dicyclomine 20 mg Tablet 20 mg PO BID RF: 0 loperamide [Imodium A-D] 2 mg Capsule 2 mg PO Q4H PRN (Reason: Diarrhea) RF: 0 fluticasone propionate 50 mcg/actuation spray,suspension 2 spray INTRANASAL DAILY RF: 0 levetiracetam [Keppra] 100 mg/mL solution 500 mg PO BID RF: 0 Saccharomyces boulardii [Florastor] 250 mg Capsule 250 mg PO BID RF: 0 omeprazole 40 mg capsule,delayed release(DR/EC) 40 mg PO DAILY RF: 0 potassium chloride [Klor-Con M20] 20 mEq tablet,ER particles/crystals 20 meq PO AMHS RF: 0 sertraline 50 mg tablet 75 mg PO HS RF: 0 rosuvastatin 5 mg tablet 5 mg PO HS RF: 0 Discontinued carvedilol [Coreg] 12.5 mg tablet 18.75 mg PO BIDM RF: 0 oxycodone [Roxicodone] 5 mg tablet 5 mg PO Q6 PRN (Reason: Pain) RF: 0 Discharge Orders: Discharge Order (Routine); Ordered 08/01/20 Ordered By: Juan Pablo eFrguson Admission Data Admit Date/Time: 07/17/20 21:36 Attending Provider: Juan Pablo Ferguson Admit Provider: Yves King Primary Care Provider: Xavi Moreno Other Providers: [facility] ; [place] ; Yves King ; Sherman Moctezuma ; Baldo Gonzalez ; Abel Negrete ; Angela Brush Thomas J ; Jasmyn Dasilva ; [place] ; Dirk Carreno ; Peng Brady ; Dirk Ramesh ; Sarbjit Mazariegos. ; Peng Proctor ; Rayshawn Pastrana ; Pavel Garcia ; Alexis Oglesby ; Farhad Chavez ; Bj Jaime ; Jasmyn Ventura ; Chuck Smalls ; Phong Bacon ; Mayda Bazan ; Petr Melvin ; Yuko Otto ; Malachi Weller ; Cameron Barba ; Geoffrey [place] ; Josias Mars.
[2020-08-01] MEDS: FUROSEMIDE 20 MG TAB PO SCH (13:08)
== END 2020-08-01 16:08 | DRG 871 ==
LOC: ED 17:35 → 2S 21:36 → SUATTDRO 21:36 → 2S 22:17 → 3N 07-23 16:28